=== PATIENT | female | born 1945 | race Caucasian/White ===

== ENCOUNTER 2018-05-08 00:25 | Outpatient (CLI) | payer MEDICARE, OTHER, SELFPAY ==
--- NOTE | 2018-05-08 11:55 | DI.MAMMO_ITS ---
SYMPTOM/DIAGNOSIS: SCREENING, Z12.39 MAMMOGRAMS: Mammograms were interpreted according to the usual protocol including computer analysis with CAD system, tomosynthesis and C view imaging. Comparison is made with exams dated [id number] from [facility]. The breasts are composed of heterogeneously dense fibroglandular tissue, breast density, Category C. No suspicious masses or suspicious microcalcifications are seen. IMPRESSION: Category 1, negative mammogram. Yearly screening mammography is recommended. [facility] ASSESSMENT OF FINDINGS: Negative. Category 1. Patient will receive a letter notifying them of these results. Bi-RADS category C. The breasts are heterogeneously dense, which may obscure small masses.
== END 2018-05-08 00:45 ==
PROVIDERS: PCP Nurse Practitioner; Visit Provider Nurse Practitioner
DX: Z12.31 Encounter for screening mammogram for malignant neoplasm of breast (principal)
CPT/HCPCS: 77063; 77067

== ENCOUNTER 2018-08-13 13:34 | Outpatient (CLI) | payer MEDICARE, SELFPAY ==
[2018-08-13 14:25] LABS: Abs Immature Grans 0.04 k/cumm (0.0-0.09); HCT 40.5 % (36.0-46.0); HGB 13.7 g/dL (12.0-15.5); Mean Corp. HGB Concentration 33.8 g/dL (32.0-36.0); Mean Corpuscular Volume 88.8 fL (80-95); Mean Platelet Volume 9.8 fL (8.0-11.0); Platelet Count 139 x1000/uL (130-400); RBC 4.56 m/cumm (4.00-5.20); RBC Distribution Width 13.3 % (11.7-14.6); White Blood Cell Count 18.07 k/cumm (4.4-10.8)
[2018-08-13 15:05] LABS: Absolute Lymphocyte Count 13.55 k/cumm (1.2-3.4); Absolute Neutrophil Count 3.61 k/cumm (1.2-6.7); Atypical Lymphocytes % 3
[2018-08-13 15:06] LABS: Absolute Eosinophil Count 0.18 k/cumm (0.0-0.7); Absolute Monocyte Count 0.72 k/cumm (0.11-0.7); Diff Comment Manual Differential; RBC Morphology Normal
== END 2018-08-13 13:54 ==
PROVIDERS: PCP Nurse Practitioner; Visit Provider Nurse Practitioner
DX: C91.10 Chronic lymphocytic leukemia of B-cell type not having achieved remission (principal)
CPT/HCPCS: 36415; 85025

== ENCOUNTER 2018-11-14 15:25 | Emergency (ER) | payer MEDICARE, OTHER, SELFPAY ==
[2018-11-14 15:27] VITALS: BP 103/47; PULSE 66; RESP 20; TEMP 36.4; O2SAT 97
[2018-11-14] MEDS: Acetaminophen 500 MG TAB 1000 MG PO (15:35)
--- NOTE | 2018-11-14 15:36 | DI.RAD_ITS ---
SYMPTOMS/DIAGNOSIS: PAIN S/P FALL LEFT CLAVICLE: There is a comminuted fracture of the distal clavicle with only slight displacement of fragments. AC joint appears intact. There is no glenohumeral joint dislocation. There are underlying degenerative changes. IMPRESSION: Distal clavicle fracture. LEFT SHOULDER: There is a comminuted fracture of the distal clavicle. There is mild spurring at the AC joint. There are mild degenerative changes of the glenohumeral joint and at the greater tuberosity. No humeral or glenoid fracture is seen. The visualized portions of the left ribs appear intact. IMPRESSION: Comminuted distal clavicle fracture.
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
[2018-11-14 16:22] VITALS: BP 117/57; PULSE 69; RESP 16; O2SAT 96
--- NOTE | 2018-11-14 16:28 | DI.VRAD_ITS ---
EXAM: XR Left Shoulder EXAM DATE/TIME: 11/14/2018 3:37 PM CLINICAL HISTORY: 73 years old, female; Other: Pain, S/P fall TECHNIQUE: Imaging protocol: XR Left shoulder. Views: 2 or more views. COMPARISON: No relevant prior studies available. FINDINGS: Bones/joints: Acute comminuted fracture of the distal clavicular shaft. No displacement. No extension to the articular surface. Soft tissues: Normal. IMPRESSION: Acute comminuted fracture of the distal clavicular shaft. No displacement. Dictated and Authenticated by: Kirstin Caicedo MD. Ordering:DEBORAH Lizama MD
--- NOTE | 2018-11-14 16:28 | DI.VRAD_ITS ---
EXAM: XR Left Clavicle, Complete EXAM DATE/TIME: 11/14/2018 4:06 PM CLINICAL HISTORY: 73 years old, female; Other: Pain S/P fall TECHNIQUE: Imaging protocol: XR Left clavicle complete. Any number of views. COMPARISON: No relevant prior studies available. FINDINGS: Bones/joints: Acute comminuted fracture of the distal clavicular shaft. No displacement. Soft tissues: Normal. IMPRESSION: Acute comminuted fracture of the distal clavicular shaft. No displacement. Dictated and Authenticated by: Kirstin Caicedo MD. Ordering:DEBORAH Lizama MD
== END 2018-11-14 16:36 | disposition home or self-care (01) ==
PROVIDERS: Emergency Provider Emergency Medicine; PCP Nurse Practitioner
DX: S42.032A Displaced fracture of lateral end of left clavicle, initial encounter for closed fracture (principal); V18.0XXA Pedal cycle driver injured in noncollision transport accident in nontraffic accident, initial encounter; Y93.55 Activity, bike riding; I10 Essential (primary) hypertension
CPT/HCPCS: 23500; 73000; 73030; L3650

== ENCOUNTER 2018-11-22 11:08 | Outpatient (CLI) | payer MEDICARE, OTHER, SELFPAY ==
--- NOTE | 2018-11-22 10:46 | DI.RAD_ITS ---
SYMPTOM/DIAGNOSIS: CLAVICLE FX LEFT CLAVICLE: Two views. Comparison 11/14/18 There has been no change in alignment of the comminuted fracture involving the distal left clavicle. The bones are osteopenic. The soft tissues are unremarkable.
== END 2018-11-22 11:28 ==
PROVIDERS: PCP Nurse Practitioner; Referring Provider Nurse Practitioner; Visit Provider Orthopaedic Surgery
DX: S42.035A Nondisplaced fracture of lateral end of left clavicle, initial encounter for closed fracture (principal); V18.0XXA Pedal cycle driver injured in noncollision transport accident in nontraffic accident, initial encounter; Y93.55 Activity, bike riding; I10 Essential (primary) hypertension
CPT/HCPCS: 99203; 99214; 73000; A4565

== ENCOUNTER 2018-12-26 10:27 | Outpatient (CLI) | payer MEDICARE, OTHER, SELFPAY ==
--- NOTE | 2018-12-26 09:25 | DI.RAD_ITS ---
EXAM: XR CLAVICLE LT INDICATION: F/U FRACTURE. COMPARISON: XR CLAVICLE LT from 11/22/2018 TECHNIQUE: 2D digital imaging was performed. FINDINGS: When compared with the previous previous examination of 11/22/2018, there has been no interval change in the alignment of the clavicular fracture. Early healing is identified at the fracture site.
== END 2018-12-26 10:47 ==
PROVIDERS: PCP Nurse Practitioner; Referring Provider Nurse Practitioner; Visit Provider Orthopaedic Surgery
DX: S42.035A Nondisplaced fracture of lateral end of left clavicle, initial encounter for closed fracture (principal); X58.XXXA Exposure to other specified factors, initial encounter; I10 Essential (primary) hypertension
CPT/HCPCS: 99213; 73000

== ENCOUNTER 2019-01-23 10:24 | Outpatient (CLI) | payer MEDICARE, OTHER, SELFPAY ==
--- NOTE | 2019-01-23 09:45 | DI.RAD_ITS ---
EXAM: XR CLAVICLE LT LIMITED 1V INDICATION: f/u. COMPARISON: XR CLAVICLE LT from 12/26/2018 TECHNIQUE: 2D digital imaging was performed. FINDINGS: An AP projection reveals no change in the apposition or alignment of the clavicular fracture fragment s. Callus formation is identified and there is nothing to suggest that healing is not progressing sat isfactorily at the present time.
== END 2019-01-23 10:44 ==
PROVIDERS: PCP Nurse Practitioner; Visit Provider Orthopaedic Surgery
DX: S42.035D Nondisplaced fracture of lateral end of left clavicle, subsequent encounter for fracture with routine healing (principal)
CPT/HCPCS: 99213; 73000

== ENCOUNTER 2019-02-11 11:36 | Outpatient (CLI) | payer MEDICARE, OTHER, SELFPAY ==
[2019-02-11 12:42] LABS: Abs Immature Grans 0.05 k/cumm (0.0-0.09); HCT 39.8 % (36.0-46.0); HGB 13.3 g/dL (12.0-15.5); Mean Corp. HGB Concentration 33.4 g/dL (32.0-36.0); Mean Corpuscular Hemoglobin 29.2 pg (27.0-33.0); Mean Corpuscular Volume 87.3 fL (80-95); Mean Platelet Volume 9.2 fL (8.0-11.0); Platelet Count 156 x1000/uL (130-400); RBC 4.56 m/cumm (4.00-5.20); RBC Distribution Width 13.1 % (11.7-14.6); White Blood Cell Count 20.46 k/cumm (4.4-10.8)
[2019-02-11 13:18] LABS: Absolute Lymphocyte Count 14.32 k/cumm (1.2-3.4); Absolute Monocyte Count 1.64 k/cumm (0.11-0.7); Atypical Lymphocytes % 6; Diff Comment Manual Differential; RBC Morphology Normal
[2019-02-11 13:34] LABS: ALT 29 U/L (14-59); AST 17 U/L (15-37); Albumin 4.3 g/dL (3.4-5.0); Alkaline Phosphatase 71 U/L (46-116); Anion Gap 8.9 mmol/L (3-11); BUN 19 mg/dL (7-18); Bilirubin, Total 0.5 mg/dL (0.2-1.0); CO2 29.1 mmol/L (21.0-32.0); Chloride 104 mmol/L (98-107); Glucose 104 mg/dL (70-100); LDH 193 U/L (81-234); Potassium 4.2 mmol/L (3.5-5.1); Sodium 142 mmol/L (136-145); Total Protein 6.5 g/dL (6.4-8.2)
== END 2019-02-11 11:56 ==
PROVIDERS: PCP Nurse Practitioner; Visit Provider Internal Medicine Hematology
DX: C91.10 Chronic lymphocytic leukemia of B-cell type not having achieved remission (principal)
CPT/HCPCS: 36415; 80053; 83615; 85025

== ENCOUNTER 2019-08-14 02:57 | Outpatient (CLI) | payer MEDICARE, OTHER, SELFPAY ==
[2019-08-14 11:53] LABS: Abs Immature Grans 0.03 k/cumm (0.0-0.09); HCT 41.5 % (36.0-46.0); HGB 13.7 g/dL (12.0-15.5); Mean Corpuscular Hemoglobin 28.9 pg (27.0-33.0); Mean Corpuscular Volume 87.6 fL (80-95); Mean Platelet Volume 9.4 fL (8.0-11.0); Platelet Count 166 x1000/uL (130-400); RBC 4.74 m/cumm (4.00-5.20); RBC Distribution Width 13.4 % (11.7-14.6); White Blood Cell Count 21.69 k/cumm (4.4-10.8)
[2019-08-14 12:04] LABS: ALT 30 U/L (14-59); AST 18 U/L (15-37); Albumin 4.3 g/dL (3.4-5.0); Alkaline Phosphatase 67 U/L (46-116); Anion Gap 6.7 mmol/L (3-11); BUN 19 mg/dL (7-18); Bilirubin, Total 0.5 mg/dL (0.2-1.0); CO2 31.3 mmol/L (21.0-32.0); CREATININE 0.94 mg/dL (0.55-1.02); Calcium 9.5 mg/dL (8.5-10.1); Chloride 102 mmol/L (98-107); Estimated GFR 58.21 (mL/min/1.73m2); Glucose 113 mg/dL (74-106); LDH 203 U/L (81-234); Sodium 140 mmol/L (136-145); Total Protein 6.7 g/dL (6.4-8.2)
[2019-08-14 12:11] LABS: Absolute Eosinophil Count 0.65 k/cumm (0.0-0.7); Absolute Lymphocyte Count 16.05 k/cumm (1.2-3.4); Absolute Monocyte Count 1.52 k/cumm (0.11-0.7); Absolute Neutrophil Count 3.47 k/cumm (1.2-6.7)
[2019-08-14 12:12] LABS: Diff Comment Manual Differential; RBC Morphology Normal
== END 2019-08-14 03:17 ==
PROVIDERS: PCP Nurse Practitioner; Visit Provider Internal Medicine Hematology
DX: C91.10 Chronic lymphocytic leukemia of B-cell type not having achieved remission (principal)
CPT/HCPCS: 36415; 80053; 83615; 85025

== ENCOUNTER 2020-02-14 01:12 | Outpatient (CLI) | payer MEDICARE, OTHER, SELFPAY ==
[2020-02-14 16:07] LABS: Abs Immature Grans 0.06 10^3/uL (0.0-0.06); HCT 40.1 % (36.0-46.0); HGB 13.4 g/dL (11.2-15.7); MCH 29.2 pg (27.0-33.0); MCHC 33.4 % (32.0-36.0); MCV 87.4 fL (80-95); MPV 9.3 fL (8.0-11.0); Nucleated RBC 0 %; Platelet Count 144 10^3/uL (130-400); RBC 4.59 10^6/uL (3.93-5.22); RDW 13.1 % (11.7-14.6); RDW-SD 41.9 fL; WBC 19.47 10^3/uL (4.4-10.8)
[2020-02-14 16:41] LABS: Absolute Lymphocyte Count 13.04 10^3/uL (1.2-3.4); Absolute Monocyte Count 0.19 10^3/uL (0.1-0.8); Absolute Neutrophil Count 6.04 10^3/uL (1.2-6.7); Diff Comment Manual Differential; RBC Morphology Normal
[2020-02-14 16:42] LABS: Absolute Eosinophil Count 0.19 10^3/uL (0.0-0.7)
[2020-02-14 17:32] LABS: ALT 24 U/L (14-59); AST 16 U/L (15-37); Albumin 4.4 g/dL (3.4-5.0); Alkaline Phosphatase 65 U/L (46-116); Anion Gap 7.4 mmol/L (3-11); BUN 23 mg/dL (7-18); Bilirubin, Total 0.5 mg/dL (0.2-1.0); CO2 32.6 mmol/L (21.0-32.0); Calcium 9.5 mg/dL (8.5-10.1); Chloride 101 mmol/L (98-107); Glucose 128 mg/dL (74-106); LDH 205 U/L (81-234); Potassium 3.9 mmol/L (3.5-5.1); Sodium 141 mmol/L (136-145); Total Protein 6.7 g/dL (6.4-8.2)
== END 2020-02-14 01:32 ==
PROVIDERS: PCP Nurse Practitioner; Visit Provider Internal Medicine Hematology
DX: C91.10 Chronic lymphocytic leukemia of B-cell type not having achieved remission (principal)
CPT/HCPCS: 36415; 80053; 83615; 85025

== ENCOUNTER 2020-03-09 18:41 | Outpatient (REF) | payer MEDICARE, OTHER, SELFPAY ==
[2020-03-13 10:09] LABS: COVID-19 RT-PCR Result NEGATIVE (Negative)
== END 2020-03-09 19:01 ==
LOC: NCHCN 18:41
PROVIDERS: PCP Nurse Practitioner; Visit Provider Nurse Practitioner Family
DX: Z11.59 Encounter for screening for other viral diseases (principal)
CPT/HCPCS: U0003

== ENCOUNTER 2020-07-27 07:36 | Day surgery (SDC) | payer MEDICARE, SELFPAY ==
--- NOTE | 2020-07-27 07:28 | W.ANESPRE ---
Anesthesia Assessment and Plan Anesthesia History Personal History: Other (Malignant Hypertension) Family History: No Family History of Anesthesia Complications Exercise Tolerance Exercise Tolerance: Metabolic Equivalents>4 Pertinent Negatives Pertinent Negatives: No Symptoms of GERD Cardiac & Pulmonary Exam Cardiac Exam: Normal S1/S2 Heart Sounds Pulmonary Exam: Clear Bilateral Breath Sounds Airway Exam Known Difficult Airway: No Mallampati Class: 2 Mouth Opening: Normal (> 3cm) Thyromental Distance: Less than 3 cm Neck Range of Motion: Limited ROM Neck Circumference: Thick Teeth Condition: Normal Dentition ASA Classification ASA Score: ASA 3 NPO Status NPO Status: NPO Clears >2 hours, Solids >8 hours General Info Date of Service This is a Shared Provider Document. All providers who document on this will be required to sign document once completed. Please Communicate with Team Date Performed: 07/27/20 Height: 5 ft 4 in Weight: 63.503 kg Body Mass Index (BMI): 24.0 Surgical Procedure: Operation Date: 07/27/20 09:40 Proposed Procedures Side Surgeon p Cataract Extraction with IOL Implant Left Corey Andrade MD Vital Signs and Lab Results Point of Care Results Nursing Point of Care Results: No Data to Display Lab Results Blood Type / Crossmatch: No Data to Display Complete Blood Count: White Blood Count 19.47 10^3/uL (4.4-10.8) H 02/14/20 15:38 02/14/20 Red Blood Count 4.59 10^6/uL (3.93-5.22) 02/14/20 15:38 02/14/20 Hemoglobin 13.4 g/dL (11.2-15.7) 02/14/20 15:38 02/14/20 Hematocrit 40.1 % (36.0-46.0) 02/14/20 15:38 02/14/20 Platelet Count 144 10^3/uL (130-400) 02/14/20 15:38 02/14/20 Complete Metabolic Panel: Sodium Level 141 mmol/L (136-145) 02/14/20 15:38 02/14/20 Potassium Level 3.9 mmol/L (3.5-5.1) 02/14/20 15:38 02/14/20 Chloride Level 101 mmol/L (98-107) 02/14/20 15:38 02/14/20 Carbon Dioxide Level 32.6 mmol/L (21.0-32.0) H 02/14/20 15:38 02/14/20 Blood Urea Nitrogen 23 mg/dL (7-18) H 02/14/20 15:38 02/14/20 Creatinine 0.80 mg/dL (0.55-1.02) 02/14/20 15:38 02/14/20 Calcium Level 9.5 mg/dL (8.5-10.1) 02/14/20 15:38 02/14/20 Albumin 4.4 g/dL (3.4-5.0) 02/14/20 15:38 02/14/20 Glucose Level 128 mg/dL (74-106) H 02/14/20 15:38 02/14/20 Liver Function Panel: Alanine Aminotransferase (ALT/SGPT) 24 U/L (14-59) 02/14/20 15:38 02/14/20 Aspartate Amino Transf (AST/SGOT) 16 U/L (15-37) 02/14/20 15:38 02/14/20 Coagulation Panel: No Data to Display Cardiac Panel: No Data to Display Arterial Blood Gas: No Data to Display Venous Blood Gas: No Data to Display Pancreas Panel: No Data to Display Thyroid Panel: No Data to Display Infectious Disease: Coronavirus (COVID-19)(PCR) Not Applicable 03/09/20 13:30 03/09/20 Blood Cultures: Blood Culture Toxicology Panel: No Data to Display Panel: No Data to Display [facility] Medical History (Updated 07/23/20 @ 20:41 by Corey Andrade MD) Acoustic neuroma CLL (chronic lymphocytic leukemia) Depression Hypertension Social History Smoking/Tobacco Use Status: Former Tobacco Use Quit Date: 04/03/95 Smoking risk assessment performed?: Yes Alcohol Intake: current Alcohol Intake frequency: 0-2 drinks per day Alcohol type: wine Substance use type: does not use Current gender identity: female Do you feel safe at home: Yes Do you feel safe in your relationship?: Yes Meds Allergies and Home Medications Allergies Allergy/AdvReac Type Severity Reaction Status Date / Time Sulfa (Sulfonamide Allergy high fever Verified 07/27/20 07:58 Antibiotics) and a rash Current Visit Medication Generic Name Dose Route Start Last Admin Trade Name Freq PRN Reason Stop Dose Admin Acetaminophen 1,000 mg 07/27/20 06:00 Acetaminophen 500 Mg Tab PO Q4H PRN PRN Miscellaneous Medication 0 ml 07/27/20 06:00 Prednisolone 1%, Moxifloxacin 0.5%, Nepafenac 0.1% 5ml Btl OS DIRECTED [facility] Miscellaneous Medication 0 ml 07/27/20 06:00 07/27/20 08:07 Tropicam./Phenyleph. (1/2.5%) 5 Ml Btl OS 1 drp DIRECTED [facility] Administration Tetracaine HCl 0 ml 07/27/20 06:00 Tetracaine 0.5% 4 Ml Btl OS DIRECTED [facility] Home Medication Medication Instructions Recorded fluoxetine [Prozac] 20 mg PO DAILY 11/14/18 calcium carbonate 500 mg calcium 500 mg PO DAILY 11/22/18 (1,250 mg) tablet losartan 100 1 tab PO DAILY 11/22/18 mg-hydrochlorothiazide 12.5 mg tablet [id number]-minerals 1 tab PO DAILY tab 11/22/18 potassium gluconate 90 mg PO DAILY 07/23/20 omega-3 fatty acids [Fish Oil] 500 mg PO DAILY 07/27/20
[2020-07-27] MEDS: Tropicam./Phenyleph. (1/2.5%) 5 ML BTL OS ×3 (07:56→08:07)
[2020-07-27 08:01] VITALS: BP 135/79; PULSE 61; RESP 18; TEMP 36.3; O2SAT 96
--- NOTE | 2020-07-27 08:20 | W.ANESPRE ---
Anesthesia Assessment and Plan Anesthesia History Personal History: No History of Anesthesia Complications Family History: No Family History of Anesthesia Complications Exercise Tolerance Exercise Tolerance: Metabolic Equivalents>4 Pertinent Negatives Pertinent Negatives: No Symptoms of GERD Cardiac & Pulmonary Exam Cardiac Exam: Normal S1/S2 Heart Sounds Pulmonary Exam: Clear Bilateral Breath Sounds Airway Exam Known Difficult Airway: No Mallampati Class: 1 Mouth Opening: Normal (> 3cm) Thyromental Distance: Less than 3 cm Neck Range of Motion: Full ROM Neck Circumference: Normal Teeth Condition: Normal Dentition ASA Classification ASA Score: ASA 2 ASA Emergency: No NPO Status NPO Status: NPO Clears >2 hours, Solids >8 hours Status Status: Not Per Patient Anesthesia Plan Anesthesia Technique: MAC Anesthesia Airway Planned: Natural Airway Monitors Used: Standard Monitors General Info Date of Service This is a Shared Provider Document. All providers who document on this will be required to sign document once completed. Please Communicate with Team Date Performed: 07/27/20 Height: 5 ft 4 in Weight: 64.4 kg Body Mass Index (BMI): 24.3 Surgical Procedure: Operation Date: 07/27/20 09:40 Proposed Procedures Side Surgeon p Cataract Extraction with IOL Implant Left Corey Andrade MD Vital Signs and Lab Results Vital Signs Most Recent Vital Signs in EMR: Most Recent Vital Signs Temp Pulse Resp BP Pulse Ox 36.3 C L 61 18 135/79 96 07/27/20 08:01 07/27/20 08:01 07/27/20 08:01 07/27/20 08:01 07/27/20 08:01 Point of Care Results Nursing Point of Care Results: No Data to Display Lab Results Blood Type / Crossmatch: No Data to Display Complete Blood Count: White Blood Count 19.47 10^3/uL (4.4-10.8) H 02/14/20 15:38 02/14/20 Red Blood Count 4.59 10^6/uL (3.93-5.22) 02/14/20 15:38 02/14/20 Hemoglobin 13.4 g/dL (11.2-15.7) 02/14/20 15:38 02/14/20 Hematocrit 40.1 % (36.0-46.0) 02/14/20 15:38 02/14/20 Platelet Count 144 10^3/uL (130-400) 02/14/20 15:38 02/14/20 Complete Metabolic Panel: Sodium Level 141 mmol/L (136-145) 02/14/20 15:38 02/14/20 Potassium Level 3.9 mmol/L (3.5-5.1) 02/14/20 15:38 02/14/20 Chloride Level 101 mmol/L (98-107) 02/14/20 15:38 02/14/20 Carbon Dioxide Level 32.6 mmol/L (21.0-32.0) H 02/14/20 15:38 02/14/20 Blood Urea Nitrogen 23 mg/dL (7-18) H 02/14/20 15:38 02/14/20 Creatinine 0.80 mg/dL (0.55-1.02) 02/14/20 15:38 02/14/20 Calcium Level 9.5 mg/dL (8.5-10.1) 02/14/20 15:38 02/14/20 Albumin 4.4 g/dL (3.4-5.0) 02/14/20 15:38 02/14/20 Glucose Level 128 mg/dL (74-106) H 02/14/20 15:38 02/14/20 Liver Function Panel: Alanine Aminotransferase (ALT/SGPT) 24 U/L (14-59) 02/14/20 15:38 02/14/20 Aspartate Amino Transf (AST/SGOT) 16 U/L (15-37) 02/14/20 15:38 02/14/20 Coagulation Panel: No Data to Display Cardiac Panel: No Data to Display Arterial Blood Gas: No Data to Display Venous Blood Gas: No Data to Display Pancreas Panel: No Data to Display Thyroid Panel: No Data to Display Infectious Disease: Coronavirus (COVID-19)(PCR) Not Applicable 03/09/20 13:30 03/09/20 Blood Cultures: Blood Culture Toxicology Panel: No Data to Display Panel: No Data to Display [facility] Medical History (Updated 07/23/20 @ 20:41 by Corey Andrade MD) Acoustic neuroma CLL (chronic lymphocytic leukemia) Depression Hypertension Social History Smoking/Tobacco Use Status: Former Tobacco Use Quit Date: 04/03/95 Smoking risk assessment performed?: Yes Alcohol Intake: current Alcohol Intake frequency: 0-2 drinks per day Alcohol type: wine Substance use type: does not use Current gender identity: female Do you feel safe at home: Yes Do you feel safe in your relationship?: Yes Meds Allergies and Home Medications Allergies Allergy/AdvReac Type Severity Reaction Status Date / Time Sulfa (Sulfonamide Allergy high fever Verified 07/27/20 07:58 Antibiotics) and a rash Current Visit Medication Generic Name Dose Route Start Last Admin Trade Name Freq PRN Reason Stop Dose Admin Acetaminophen 1,000 mg 07/27/20 06:00 Acetaminophen 500 Mg Tab PO Q4H PRN PRN Miscellaneous Medication 0 ml 07/27/20 06:00 Prednisolone 1%, Moxifloxacin 0.5%, Nepafenac 0.1% 5ml Btl OS DIRECTED [facility] Miscellaneous Medication 0 ml 07/27/20 06:00 07/27/20 08:07 Tropicam./Phenyleph. (1/2.5%) 5 Ml Btl OS 1 drp DIRECTED [facility] Administration Tetracaine HCl 0 ml 07/27/20 06:00 Tetracaine 0.5% 4 Ml Btl OS DIRECTED [facility] Home Medication Medication Instructions Recorded fluoxetine [Prozac] 20 mg PO DAILY 11/14/18 calcium carbonate 500 mg calcium 500 mg PO DAILY 11/22/18 (1,250 mg) tablet losartan 100 1 tab PO DAILY 11/22/18 mg-hydrochlorothiazide 12.5 mg tablet [id number]-Dz-reeu-minerals 1 tab PO DAILY tab 11/22/18 potassium gluconate 90 mg PO DAILY 07/23/20 omega-3 fatty acids [Fish Oil] 500 mg PO DAILY 07/27/20
[2020-07-27 08:38] VITALS: BMI 24.3
[2020-07-27] MEDS: Tetracaine 0.5% 4 ML BTL OS (08:54)
[2020-07-27] MEDS: Duovisc Viscoelastic System EACH 1 EACH (08:55)
[2020-07-27] MEDS: Balanced Salt Soln.-PLUS 500 ML BAG (08:55)
[2020-07-27] MEDS: Lidocaine 1% Pres-Free 5 ML VIAL (08:56)
[2020-07-27] MEDS: Lidocaine 2% Jelly 6 ML SYR (08:57)
[2020-07-27] MEDS: Povidone-Iodine Ophth 30 ML BTL (08:58)
--- NOTE | 2020-07-27 09:14 | W.PM.DSUDISC ---
Discharge Plan Disposition Patient Disposition: HOME Condition: Good Discharge Details Attending Provider: Corey Andrade Primary Care Provider: Keena Baca Home Meds and New Rx's Prescriptions: No Action losartan-hydrochlorothiazide 100-12.5 mg tablet 1 tab PO DAILY RF: 0 Multiple Vitamin, Womens Tablet 1 tab PO DAILY RF: 0 calcium carbonate [Calcium 500] 500 mg calcium (1,250 mg) tablet 500 mg PO DAILY RF: 0 fluoxetine [Prozac] 20 mg Capsule 20 mg PO DAILY RF: 0 potassium gluconate 550 mg (90 mg) Tablet 90 mg PO DAILY RF: 0 Fish Oil Capsule 500 mg PO DAILY RF: 0 Discharge Instructions Stand Alone Forms: Post-op Topical Cataract, Kari Fung ([facility]) Discharge Orders Discharge Orders: Discharge Order (Routine); Ordered 07/27/20 Ordered By: Corey Andrade DS: Diagnosis Discharge Diagnosis (1) Nuclear sclerotic cataract of left eye: Status: Resolved (2) Cortical cataract of left eye: Status: Resolved
[2020-07-27 09:15] VITALS: BP 117/70; PULSE 63; RESP 18; TEMP 35.9; O2SAT 96
--- NOTE | 2020-07-27 09:15 | ROE_ITS ---
Date of service: 07/27/20 Time of Service: 09:15 Operative Note Operative Note DATE OF PROCEDURE: 07/27/20 PRE-OP DIAGNOSIS: Nuclear/cortical cataract, left eye POST-OP DIAGNOSIS: same PROCEDURE: Cataract extraction using phacoemulsification with intraocular lens implant, left eye SURGEON: Corey Andrade ANESTHESIA TYPE: Local By Surgeon and MAC Refer to Anesthesia Record PATHOLOGY: none sent COMPLICATIONS: None Patient was transported to: same day Patient's condition: stable Implants: [employer] / [employer] Tecnis [id number] Indications: Progressive decreased vision due to cataract, left eye Procedure Description: CATARACT SURGERY OPERATIVE REPORT PREOPERATIVE DIAGNOSIS: Nuclear/cortical cataract, left eye POSTOPERATIVE DIAGNOSIS: Same OPERATION: Cataract extraction using phacoemulsification with posterior chamber intraocular lens implant, left eye. IOL: IOL Facility Supervisor/Model: [employer] / WERNER Tecnis [id number] IOL Power: + 21.0 diopters IOL Serial Number: [id number] Optic Diameter: 6.0mm Haptic/Overall Diameter: 13.0mm PHACO INFO: Shivam [employer] Vision System with OZil and Active [employer]uidics Cumulative Dispersed Energy (CDE): 6.02 seconds SURGEON: Corey Andrade MD, FENG ANESTHESIA: Monitored Anesthesia Care (MAC), with local sub-tenon's anesthetic infiltration COMPLICATIONS: None SPECIMENS: None INDICATIONS FOR PROCEDURE: The patient is a 74-year-old lady who has previously undergone cataract surgery in her right eye in [place]. She has now developed a symptomatic nuclear and cortical cataract of the left eye and desires cataract surgery there and attempt to improve and maximize her vision. PROCEDURE: The correct surgical eye was identified and marked as the left eye and the pupil was dilated in the preoperative area using mydriatics and cycloplegics. The dilated pupil size was 6.5 mm. Oral sedation was administered in the form of an Imprimis MKO Melt (midazolam 3mg/ketamine 25mg/ondansetron 2mg). The patient was brought to the operating room where cardiopulmonary monitoring was instituted and surgical time-out was performed, confirming the correct operative eye and IOL power. Topical anesthesia was administered and ophthalmic povidone-iodine 5% was instilled into the conjunctival fornices. Lidocaine gel was applied to the cornea and the lynda-ocular area was prepped with Betadine 10% solution and draped in the usual sterile fashion for intraocular surgery, including an aperture drape. A Tegaderm transparent film dressing was cut in half and used to cover the lashes and lid margins. Care was taken to sequester the lashes and lid margins under the Tegaderm dressing. A lid speculum was placed between the lids of the operative eye and the Nazario-Venkat operating microscope was maneuvered into position. Nicole scissors were then used to make a conjunctival buttonhole approximately 6mm posterior to the limbus in the inferonasal quadrant. Blunt dissection was carried out to expose bare sclera, and a blunt-tipped sub-tenon?s anesthesia cannula was introduced and passed posteriorly along the globe where non- preserved plain lidocaine was injected into posterior sub-Tenon?s space. A sideport knife was used to make a paracentesis port superior/superiortemporally. Intraocular phenylephrine/lidocaine was injected into the anterior chamber. The anterior chamber was then filled with viscoelastic. A 2.4mm keratome knife was used to create a half-thickness groove at the limbus and then to construct a three-plane near-clear corneal tunnel extending 2.0mm into clear cornea in the temporal position. . A flap was raised on the anterior capsule and capsulorhexis forceps were used to complete a continuous curvilinear capsulorhexis of 5.0 mm. Balanced salt solution was then used to perform cortical cleaving hydrodissection and nuclear hydrodelineation until the lens could be freely rotated within the capsular bag. The lens nucleus was then disassembled and removed within the capsular bag and iris plane using phacoemulsification. Residual cortical material was removed using the 45-degree angled silicone I/A tip with 0.3mm port. The posterior capsule was carefully polished to remove as much residual lens epithelial cells as safely possible. The capsular bag was then inflated and the anterior chamber deepened with viscoelastic. The lens implant described above was inserted into the capsular bag using the WERNER Pl atinum Injector. A Kuglen hook was used to dial the IOL into position. Residual viscoelastic was then removed first from posterior to the IOL, then from the anterior chamber using the I/A handpiece. The lens implant was noted to center nicely within the capsular bag. The incisions were stromally hydrated, and the anterior chamber was reformed using BSS. Then 0.5cc of moxifloxacin 1.0mg/ml were injected into the capsular bag and anterior chamber. The incisions were checked with a Weck spear and found to be secure. Several drops of ophthalmic povidone-iodine 5% were then applied to the eye followed by two drops of Imprimis combination prednisolone/moxifloxacin/nepafenac solution. The drapes were removed and a clear plastic protective eye shield was placed over the eye. The patient was then returned to Same Day Surgery in stable condition.
--- NOTE | 2020-07-27 09:18 | W.ANESPOSTOP ---
Postoperative Evaluation Date, Time and Location Date Performed: 07/27/20 Time Performed: 09:18 Patient Location: Day Surgery Unit Vital Signs Most Recent Imported Vital Signs: Most Recent Vital Signs Temp Pulse Resp BP Pulse Ox 36.3 C L 61 18 135/79 96 07/27/20 08:01 07/27/20 08:01 07/27/20 08:01 07/27/20 08:01 07/27/20 08:01 Assessment Mental Status: Awake (Alert & Oriented to Patient Baseline) Airway and Respiratory Function: Patent airway with normal (patient baseline) respiratory exam Cardiovascular Function: Hemodynamically Stable Hydration Status: Adequately Hydrated Nausea & Vomiting: No Nausea or Vomiting Pain: Pt. Denies Any Pain Peripheral Nerve Block: Patient did not receive a nerve block Teaching Patient Teaching: Discussed Safe Use of Pain Medication Given Recent Anesthesia
[2020-07-27 09:47] VITALS: BP 118/70; PULSE 66; RESP 16; TEMP 36.4; O2SAT 96
== END 2020-07-27 09:55 | disposition home or self-care (01) ==
PROVIDERS: PCP Nurse Practitioner; Visit Provider Ophthalmology
PROC: (CPT 66984; principal; 2020-07-27 09:30)
DX: H25.12 Age-related nuclear cataract, left eye (principal); H25.012 Cortical age-related cataract, left eye; Z98.42 Cataract extraction status, left eye; Z96.1 Presence of intraocular lens
CPT/HCPCS: 66984; V2632

== ENCOUNTER 2020-10-28 13:57 | Outpatient (REF) | payer MEDICARE, SELFPAY ==
[2020-10-28 20:50] LABS: Abs Immature Grans 0.08 10^3/uL (0.0-0.06); HCT 39.6 % (36.0-46.0); HGB 13.3 g/dL (11.2-15.7); MCH 28.8 pg (27.0-33.0); MCHC 33.6 % (32.0-36.0); MCV 85.7 fL (80-95); MPV 9.7 fL (8.0-11.0); Nucleated RBC 0 %; Platelet Count 140 10^3/uL (130-400); RBC 4.62 10^6/uL (3.93-5.22); RDW 12.8 % (11.7-14.6); RDW-SD 39.6 fL; WBC 19.99 10^3/uL (4.4-10.8)
[2020-10-28 21:17] LABS: ALT 26 U/L (14-59); AST 21 U/L (15-37); Albumin 4.5 g/dL (3.4-5.0); Alkaline Phosphatase 74 U/L (46-116); Anion Gap 10.5 mmol/L (3-11); BUN 16 mg/dL (7-18); Bilirubin, Total 0.5 mg/dL (0.2-1.0); CO2 28.5 mmol/L (21.0-32.0); CREATININE 0.8 mg/dL (0.55-1.02); Calcium 9.6 mg/dL (8.5-10.1); Calculated LDL 134 mg/dL (<100); Chloride 103 mmol/L (98-107); Cholesterol 222 mg/dL (<200); Glucose 123 mg/dL (74-106); HDL Cholesterol 48 mg/dL (40-60); Potassium 3.5 mmol/L (3.5-5.1); Sodium 142 mmol/L (136-145); TSH (W/Ref FT4) 2.66 uIU/mL (0.36-3.74); Total Protein 6.7 g/dL (6.4-8.2); Triglyceride 202 mg/dL (<150)
[2020-10-28 21:26] LABS: Hemoglobin A1C 6.1 % (<5.7)
[2020-10-28 22:32] LABS: Absolute Lymphocyte Count 14.19 10^3/uL (1.2-3.4); Atypical Lymphocytes % 8; Diff Comment Manual Differential; RBC Morphology Normal
== END 2020-10-28 13:58 | disposition home or self-care (01) ==
LOC: NCHCN 13:57
PROVIDERS: PCP Nurse Practitioner; Visit Provider Nurse Practitioner
DX: C91.10 Chronic lymphocytic leukemia of B-cell type not having achieved remission (principal); I10 Essential (primary) hypertension; R73.9 Hyperglycemia, unspecified; F41.9 Anxiety disorder, unspecified
CPT/HCPCS: 80053; 80061; 83036; 84443; 85025

== ENCOUNTER → 2020-11-10 10:20 | Outpatient (BNVA) | payer MEDICARE, SELFPAY | PROVIDERS: PCP Nurse Practitioner; Referring Provider Nurse Practitioner Family; Visit Provider Surgery | DX: L98.8 Other specified disorders of the skin and subcutaneous tissue (principal) | CPT/HCPCS: 99203; 99214 ==

== ENCOUNTER 2020-11-18 07:20 | Day surgery (SDC) | payer MEDICARE, SELFPAY ==
--- NOTE | 2020-11-18 06:22 | ROE_ITS ---
Date of service: 11/18/20 Time of Service: 11:30 Operative Note Operative Note DATE OF PROCEDURE: 11/18/20 PRE-OP DIAGNOSIS: Lower extremity skin lesion POST-OP DIAGNOSIS: same PROCEDURE: Excision of lower extremity lesion with advancement flap SURGEON: Yuliana Cano SERVICE DESK ASSOCIATE: Di Ray ANESTHESIA TYPE: Local By Surgeon, MAC and Primary Nerve Block Refer to Anesthesia Record ESTIMATED BLOOD LOSS: 15 PATHOLOGY: other (skin lesion) COMPLICATIONS: None Patient was transported to: PACU Patient's condition: stable Indications: Ms Felipe is a pleasant 75-year-old female with a 2 x 2.1 cm raised lesion just above her right ankle. This is large enough that I am not sure that I will be able to close it primarily. I think she will either need a Z-plasty or an advancement flap for closure. I have discussed this with her I did tell her that she will more than likely have a quite a long scar. She is okay with that and just wants to have this removed. We reviewed the procedure as well as the risks and benefits. Complications include but are not limited to bleeding, infection, wound dehiscence, flap necrosis or recurrence. Questions were entertained and answered to her satisfaction and she wished to proceed. No guarantees were given or implied. I discussed with the patient doing MAC sedation with local as well as a block by anesthesia. I did discuss the case with anesthesia and and Devin Curiel did say that they could do a block. Proceed with excision of lesion with closure either primarily, Z-plasty or advancement flap. Findings: ulcerated lesion 2.8 x 3 cm Procedure Description: After informed consent was obtained and the right lower extremity was marked, the patient was taken to the operating room and placed in a supine position with her right lower extremity on a bone cushion. Monitors were applied and a timeout was done. The patient's name, date of , allergies to medications, procedure to be done and site, DVT prophylaxis and antibiotic prophylaxis were reviewed. Fire risk was assessed. The patient was sedated with MAC anesthesia. Once sedated and comfortable her right lower extremity from the knee down to the foot were prepped and draped in a sterile surgical fashion using iodine. Next a mixture of quarter percent bupivacaine and Exparel were injected around the wound. A round incision was made around the lesion which measured 4 cm. The dissection was taken down with cautery through the subcutaneous tissue down to the fascia overlying the muscle. The lesion was removed and marked at the anterior edge. The specimen was placed in formalin and sent to pathology. The wound was irrigated and bleeding was stopped using cautery. An T- plasty closure of the round defect was done. Once the necessary incisions were made the flap was closed with interrupted 4-0 vircyl subcutaneous stitches and 3-0 proline was used to closed the dermis. The skin was cleaned and dried and and Mastisol and Steri-Strips were applied. A pressure dressing was applied with 4x4, kerlix and secured with TACHO wrap. The patient was woken up and taken back to [facility] in stable condition. Instrument, sponge and needle counts were correct. The patient toelrated the procedure well and there were no immediate complications.
--- NOTE | 2020-11-18 06:23 | W.PM.DSUDISC ---
Discharge Plan Disposition Patient Disposition: HOME Condition: Good Discharge Details Reason For Visit: excision of skin lesion Attending Provider: Yuliana Cano Primary Care Provider: Keena Baca Home Meds and New Rx's Prescriptions: Continued Multiple Vitamin, Womens Tablet 1 tab PO DAILY RF: 0 Pulmicort Flexhaler 180 mcg/actuation aerosol powdr breath activated 1 inh inhalation BID RF: 0 losartan 100 mg tablet 100 mg PO DAILY RF: 0 hydrochlorothiazide 25 mg tablet 25 mg PO DAILY RF: 0 amlodipine 2.5 mg tablet 2.5 mg PO DAILY RF: 0 albuterol sulfate [ProAir HFA] 90 mcg/actuation HFA aerosol inhaler 2 puff inhalation Q6H PRNRF: 0 valacyclovir 1 gram tablet 1,000 mg PO TID RF: 0 potassium 99 mg tablet 99 mg PO DAILY RF: 0 fluoxetine [Prozac] 20 mg Capsule 20 mg PO DAILY RF: 0 potassium gluconate 550 mg (90 mg) Tablet 90 mg PO DAILY RF: 0 omega-3 fatty acids Capsule 500 mg PO DAILY RF: 0 Discharge Instructions Additional Instructions: Activity at Home after surgery: 1. As tolerated 2. Elevate Right lower extremity when sitting Diet, Nutrition, & wound healin. Avoid alcohol until after you are recovered from your surgery 2. Make sure to eat plenty of lean protein (meat, fish, eggs, cottage cheese, beans) 3. Eat a variety of fruits and vegetables. Eat plenty of high fiber foods to avoid constipation. 4. Drink plenty of liquids to stay hydrated and avoid constipation Pain Medications: 1. Tylenol 650mg every 6 hours as needed and Ibuprofen 600 mg every 6 hours as needed. You may alternate between the 2 medications every 3 hours For Constipation: 1. Take Milk of Magnesia or MiraLax as needed for constipation Other: 1. You may shower daily. Do not scrub the incisions 2. Do not soak the incisions for 1 week 3. You may alternate ice and heat as needed for pain and swelling Wound Care: 1. Keep the incisions clean and dry Please call our office if you develop: 1. Fevers >101.5 2. Nausea or Vomiting 3. Worsening pain 4. Redness and thick discharge from the wounds If after hours please call the Hospital at and ask to speak to the on-call surgeon Referrals: Yuliana Cano MD [ [facility] STAFF PHYSICIAN] - Diet:: As Tolerated Discharge Orders Discharge Orders: Discharge Order (Routine); Ordered 11/18/20 Ordered By: Yuliana Cano
[2020-11-18 07:34] VITALS: BP 145/79; PULSE 78; RESP 16; TEMP 36.3; O2SAT 96
[2020-11-18] MEDS: Lactated Ringers 1,000 ML 80 ML IV (07:54)
--- NOTE | 2020-11-18 08:39 | W.ANESPRE ---
General Info Date of Service Date Performed: 11/18/20 Height: 5 ft 4 in Weight: 63.1 kg Body Mass Index (BMI): 23.8 Surgical Procedure: Operation Date: 11/18/20 08:40 Proposed Procedures Side Surgeon p Excision of right lower extermity skin Lesion Right Yuliana Cano MD Meds Allergies and Home Medications Allergies Allergy/AdvReac Type Severity Reaction Status Date / Time silver Allergy Intermediate inflammatio Verified 11/18/20 07:04 [From Tegaderm AG Mesh] n Sulfa (Sulfonamide Allergy high fever Verified 11/18/20 07:04 Antibiotics) and a rash Home Medication Medication Instructions Recorded fluoxetine [Prozac] 20 mg PO DAILY 11/14/18 urbmdxraciyd-Gf-prhm-minerals 1 tab PO DAILY tab 11/22/18 potassium gluconate 90 mg PO DAILY 07/23/20 omega-3 fatty acids [Fish Oil] 500 mg PO DAILY 07/27/20 albuterol sulfate 90 mcg/actuation 2 puff INHALATION Q6H PRN 10/29/20 aerosol inhaler amlodipine 2.5 mg tablet 2.5 mg PO DAILY 10/29/20 budesonide 180 mcg/actuation 1 inh INHALATION BID 10/29/20 breath activated powder inhaler hydrochlorothiazide 25 mg tablet 25 mg PO DAILY 10/29/20 losartan 100 mg tablet 100 mg PO DAILY 10/29/20 potassium 99 mg tablet 99 mg PO DAILY tab 10/29/20 valacyclovir 1 gram tablet 1,000 mg PO TID 10/29/20 Current Visit Medications: Current Medications Generic Name Dose Route Start Last Admin Trade Name Freq PRN Reason Stop Dose Admin Ringer's Solution 1,000 mls @ 80 mls/hr 11/18/20 06:00 11/18/20 07:54 IV 12/17/20 23:59 80 mls/hr INFUSION KYLER Administration Cefazolin Sodium 2,000 mg/ 100 mls @ 200 mls/hr 11/18/20 06:00 Sodium Chloride IVPB 11/18/20 16:00 PREOP KYLER Ondansetron HCl 4 mg/ Sodium 52 mls @ 200 mls/hr 11/18/20 06:24 Chloride IVPB Q6H PRN PRN IV Miscellaneous Supplies 1 each 11/18/20 06:00 Iv Access IV 09/16/21 23:59 DIRECTED KYLER Oxycodone HCl 5 mg 11/18/20 06:24 Oxycodone 5 Mg Tab PO Q3H PRN PRN Pain Sodium Chloride 0 ml 11/18/20 06:00 Normal Saline Flush 10 Ml Syr IV 12/17/20 23:59 PRN PRN Sodium Chloride 0 ml 11/18/20 06:00 Normal Saline 10 Ml Vial IJ 12/17/20 23:59 DIRECTED PRN Sterile Water 0 ml 11/18/20 06:00 Water,Injection,Sterile 10 Ml Vial IJ 12/17/20 23:59 DIRECTED PRN PFSH Active Problems Active Problems: Problem Status Onset Code Fracture of left clavicle 11/14/18 S42.002A Nuclear sclerotic cataract of left eye H25.12 Cortical cataract of left eye H26.9 Asthma J45.909 Heart murmur R01.1 Anxiety F41.9 Balance problem R26.89 Blood glucose elevated R73.9 Alcohol use Z72.89 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 History of acoustic neuroma Z86.018 Skin lesion L98.9 Medical History Medical History Acoustic neuroma Alcohol use Anxiety Asthma Balance problem Blood glucose elevated CLL (chronic lymphocytic leukemia) Cortical cataract of left eye Deafness in right ear Depression Fracture of left clavicle (11/14/18) Heart murmur Hypertension Surgical History Surgical History S/P cataract extraction and insertion of intraocular lens left Tobacco Smoking/Tobacco Use Status: Former Tobacco Use Alcohol Alcohol Intake: current Alcohol intake frequency: 0-2 drinks per day Alcohol type: wine Substance Use Substance use type: does not use Vital Signs and Lab Results Vital Signs Most Recent Vital Signs in EMR: Most Recent Vital Signs Temp Pulse Resp BP Pulse Ox 36.3 C L 78 16 145/79 H 96 11/18/20 07:34 11/18/20 07:34 11/18/20 07:34 11/18/20 07:34 11/18/20 07:34 Lab Results Blood Type / Crossmatch: No Data to Display Complete Blood Count: White Blood Count 19.99 10^3/uL (4.4-10.8) H 10/28/20 13:15 10/28/20 Red Blood Count 4.62 10^6/uL (3.93-5.22) 10/28/20 13:15 10/28/20 Hemoglobin 13.3 g/dL (11.2-15.7) 10/28/20 13:15 10/28/20 Hematocrit 39.6 % (36.0-46.0) 10/28/20 13:15 10/28/20 Platelet Count 140 10^3/uL (130-400) 10/28/20 13:15 10/28/20 Complete Metabolic Panel: Sodium Level 142 mmol/L (136-145) 10/28/20 13:15 10/28/20 Potassium Level 3.5 mmol/L (3.5-5.1) 10/28/20 13:15 10/28/20 Chloride Level 103 mmol/L (98-107) 10/28/20 13:15 10/28/20 Carbon Dioxide Level 28.5 mmol/L (21.0-32.0) 10/28/20 13:15 10/28/20 Blood Urea Nitrogen 16 mg/dL (7-18) 10/28/20 13:15 10/28/20 Creatinine 0.8 mg/dL (0.55-1.02) 10/28/20 13:15 10/28/20 Estimated GFR/1.73 m2 >= 60.00 (mL/min/1.73m2) 10/28/20 13:15 10/28/20 Calcium Level 9.6 mg/dL (8.5-10.1) 10/28/20 13:15 10/28/20 Albumin 4.5 g/dL (3.4-5.0) 10/28/20 13:15 10/28/20 Glucose Level 123 mg/dL (74-106) H 10/28/20 13:15 10/28/20 Hemoglobin A1c 6.1 % (<5.7) H 10/28/20 13:15 10/28/20 Liver Function Panel: Alanine Aminotransferase (ALT/SGPT) 26 U/L (14-59) 10/28/20 13:15 10/28/20 Aspartate Amino Transf (AST/SGOT) 21 U/L (15-37) 10/28/20 13:15 10/28/20 Coagulation Panel: No Data to Display Cardiac Panel: No Data to Display Arterial Blood Gas: No Data to Display Venous Blood Gas: No Data to Display Pancreas Panel: No Data to Display Thyroid Panel: Thyroid Stimulating Hormone (TSH) 2.66 uIU/mL (0.36-3.74) 10/28/20 13:15 10/28/20 Infectious Disease: No Data to Display Blood Cultures: No Data to Display Toxicology Panel: No Data to Display Anesthesia Assessment and Plan Anesthesia History Personal History: No History of Anesthesia Complications Family History: No Family History of Anesthesia Complications Exercise Tolerance Exercise Tolerance: Metabolic Equivalents>4 Pertinent Negatives Pertinent Negatives: No Symptoms of GERD, No Major Cardiovascular Symptoms or Complaints, No Major Pulmonary Symptoms or Complaints (Very mild asthma that i have inhalers for) and No History of CVA/TIA Cardiac & Pulmonary Exam Cardiac Exam: Normal S1/S2 Heart Sounds and Heart Murmur Present Pulmonary Exam: Clear Bilateral Breath Sounds Airway Exam Known Difficult Airway: No Mallampati Class: 1 Mouth Opening: Normal (> 3cm) Thyromental Distance: Less than 3 cm Neck Range of Motion: Full ROM Neck Circumference: Normal Teeth Condition: Normal Dentition ASA Classification ASA Score: ASA 2 Emergency Case?: No NPO Status NPO Status: NPO Clears >2 hours, Solids >8 hours Anesthesia Plan Resuscitation Status: Full Code Anesthesia Technique: General Anesthesia Airway Planned: Natural Airway Monitors Used: Standard Monitors
[2020-11-18 08:43] VITALS: BMI 23.8
--- NOTE | 2020-11-18 10:00 | W.ANESNERVE ---
Nerve Block Single Injection Procedure Date and Time Date Performed: 11/18/20 Procedure Start: 09:10 Location Where Procedure Performed Procedure Location: PACU Reason Performed: Postoperative Analgesia Requesting Provider: Yuliana Cano Timeout Performed Timeout Performed: Yes Monitoring Used ECG, Blood Pressure and SpO2 Sterility Sterility: Hand Hygiene, Surgical Cap, Surgical Mask, Sterile Gloves and Chlorhexidine Sedation Given During Procedure Sedation Given (Indicate Dose Given): No Sedation given Patient Mental Status Patient Mental Status: Awake Nerve Block 1st Nerve Block: Laterality: Right Block Type: Popliteal Sciatic Needle / Catheter Used: 100mm SonoPlex II Local Anesthetic Bolus (Indicate Dose Given): Lidocaine used for local infiltration of skin, Injected in 3-5ml increments after negative blood aspiration, Bupivacaine 0.5% Dose:: 20ml and Exparel Dose:: 10ml Additives (Indicate Dose Given): Normal Saline (5ml) Ultrasound: Sterile probe cover and gel used Ultrasound Image Saved?: Yes Nerve Stimulator: Not Used Paresthesia: None Procedure Tolerated: No Complications and Patient tolerated well Procedure Outcome: Successful Performed By: Devin Curiel
[2020-11-18] MEDS: ceFAZolin 2,000 MG in Normal Saline 100 ML 200 MG IVPB (10:07)
--- NOTE | 2020-11-18 10:28 | SKI_PTH ---
PATIENT: Latisha Felipe LOC: [facility] U#:[id number] AGE/SX: 75/F ROOM: RE11/18/[address]: Yuliana Cano MD : [id number] BED: DIS: 11/18/2020 SPEC #: [id number] RECD: 11/18/20 12:45 STATUS: JACK RELuis Enrique #: [id number] MODE: 11/18/20 10:[address]: Yuliana Cano DEPT: Surgical Specimen RECD BY: Angela Cameron ENTERED: 11/18/20 12:46 SP TYPE: LIZ MILLER DR: Keena Baca Tissues: 1 - SKIN BIOPSY(SHAVE/PUNCH) Procedures: IMMUNOPEROXIDASE STAIN SKIN LEVEL 4 Comments: [id number]
[2020-11-18] MEDS: Bupivacaine 0.25% Pres-Free 30 ML VIAL (10:50)
[2020-11-18 11:10] VITALS: BP 100/58; PULSE 52; RESP 16; TEMP 36
[2020-11-18 11:35] VITALS: BP 134/54; PULSE 52; RESP 16; TEMP 36; O2SAT 97
--- NOTE | 2020-11-18 12:36 | PT.INIE ---
Date of service: 11/18/20 Time of Service: 12:36 PT Notes Visit Reasons: excision of skin lesion Physical Therapy Day Surgery Initial Evaluation Date: 11/18/2020 Referring Doctor: Yuliana Cano MD PT Orders: PT CONSULT: Eval for assistive device. Status post surgery on right LE. Precautions: WBAT on R LE with AD. Patient Profile/Admitting Diagnosis: Latisha is a 25-year-old female with lower extremity skin lesion and is status post excision of the LE lesion with advancement flap on postoperative day 0. 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 Independent with all aspects of ADLs prior to surgery Equipment Owned/DME: None Subjective: Agreeable to consult and trying both bilateral axillary crutches and a front wheeled walker to see which will provide her with better stability when walking. Per Nurse You, surgeon ordered NWB on R LE. Objective: General Observation: Dressing and TACHO wrap to R leg and foot. Mental Status: Alert and oriented x4 Pain: None ROM: Right Lower Extremity: Hip flexion WFL. Hip abduction WFL. Knee flexion WFL. Knee extension NT. Ankle dorsiflexion NT. Ankle plantarflexion NT. Strength: Right Lower Extremity: Hip flexors 5/5. Hip abductors 5/5. Knee flexors 5/5. Knee extensors 3-/5. Ankle dorsiflexors 3-/5. Ankle plantarflexors 4-/5. Sensation: Intact on R LE Bed Mobility/Transfers: Supine to sit independent Sit to stand contact-guard assist Stand to sit standby assist Bed to chair standby assist Gait: Using the bilateral axillary crutches patient tolerated 40 feet of level surface ambulation but appeared unsteady with NWB on right LE with contact-guard to minimal assist.. With the FWW, patient was able to complete 80 feet of level surface ambulation requiring only standby assist. Patient indicates better stability with use of walker and is agreeable to going home with 1. Stairs: Up and down 6 x 4 inch steps while holding onto both rails with NWB on R LE with no increase in pain. Balance: Static Sitting: Normal Dynamic Sitting: Normal Static Standing: Unable, patient is NWB on right LE Dynamic Standing: Unable, patient is NWB on right LE Special Tests: Mobility Limitations Standardized Measure [facility] 6 clicks Basic Mobility Inpatient Short Form: Raw Score: 22 CMS Score: 21% deficit Informed Consent/Education: Patient instructed in purpose of PT consult. Assessment: Requires the use of a front wheeled walker for more stable gait and decreased fall risk at home. Patient was instructed on techniques with ambulation with NWB on right LE per verbal order of Md through Nurse Orta although discharge instructions states activity as tolerated. Patient presents with clinical signs and symptoms consistent with current/admitting diagnoses that have resulted to mobility limitations, gait instability, generalized weakness, and impairment of motor control as demonstrated by the following impairment level findings: 1. Decreased strength to right ankle major muscle groups 2. Impaired standing balance 3. Limitation of joint range of motion in right ankle Impairments are contributing to the following functional limitations: 1. Inability to safely ambulate without assistive device 2. Increase completion time for mobility ADL performance 3. Increased fall risk Patient is assessed as a complexity based on the following: History: 75-year-old female with impairment level findings, functional limitations, and past medical history as indicated above Examination: Demonstrable impairment in strength, balance, and mobility level with underlying impairments and functional limitations as documented above Presentation: Stable Decision Makin low complexity Goals: N/A. PT evaluation and 1-2 treatment sessions only for functional mobility training using recommended AD and for HEP instruction. Plan of Care/Treatment Plan: N/A. PT evaluation and 1-2 treatment session only for functional mobility training using recommended AD and for HEP instruction. DISCHARGE RECOMMENDATIONS: Home when medically cleared by surgeon. Will require the use of a front wheeled walker to increase ability to stay at home and to reduce fall. TREATMENT CODE/TIME: 53750 x 15 minutes, 62914 x 15 minutes beginning at 12:36 PM. Thank you for the opportunity to participate in the care of this patient. Aarti Best PT, DPT, CLT [facility] [place], [place]
--- NOTE | 2020-11-18 13:40 | W.ANESPOSTOP ---
Postoperative Evaluation Date, Time and Location Date Performed: 11/18/20 Time Performed: 11:40 Patient Location: Day Surgery Unit Vital Signs Most Recent Imported Vital Signs: Most Recent Vital Signs Temp Pulse Resp BP Pulse Ox 36.0 C L 52 L 16 134/54 L 97 11/18/20 11:35 11/18/20 11:35 11/18/20 11:35 11/18/20 11:35 11/18/20 11:35 Pain Score Most Recent Pain Score: Most Recent Pain Score Pain Level 0 11/18/20 11:35 Assessment Mental Status: Awake (Alert & Oriented to Patient Baseline) Airway and Respiratory Function: Patent airway with normal (patient baseline) respiratory exam Cardiovascular Function: Hemodynamically Stable Hydration Status: Adequately Hydrated Nausea & Vomiting: No Nausea or Vomiting Pain: Pt. Denies Any Pain Peripheral Nerve Block: Regional nerve block not resolved at time of post operative discharge
== END 2020-11-18 13:27 | disposition home or self-care (01) ==
PROVIDERS: PCP Nurse Practitioner; Visit Provider Surgery
PROC: (CPT 14020; principal; 2020-11-18 08:30)
DX: C44.712 Basal cell carcinoma of skin of right lower limb, including hip (principal)
CPT/HCPCS: 14020; 97161; 97530; 88305; 88361; J0690; J1885; J2001; J2250; J2405; J2704

== ENCOUNTER → 2020-11-20 09:46 | Outpatient (BNVA) | payer MEDICARE, SELFPAY | PROVIDERS: PCP Nurse Practitioner; Referring Provider Nurse Practitioner; Visit Provider Surgery | DX: Z48.817 Encounter for surgical aftercare following surgery on the skin and subcutaneous tissue (principal); L98.9 Disorder of the skin and subcutaneous tissue, unspecified ==

== ENCOUNTER → 2020-11-27 09:57 | Outpatient (BNVA) | payer MEDICARE, SELFPAY | PROVIDERS: PCP Nurse Practitioner; Referring Provider Nurse Practitioner; Visit Provider Surgery | DX: T81.31XA Disruption of external operation (surgical) wound, not elsewhere classified, initial encounter (principal) ==

== ENCOUNTER → 2020-11-30 12:57 | Outpatient (BNVA) | payer MEDICARE, SELFPAY | PROVIDERS: PCP Nurse Practitioner; Referring Provider Nurse Practitioner; Visit Provider Physical Therapy Assistant | DX: Z48.817 Encounter for surgical aftercare following surgery on the skin and subcutaneous tissue (principal) ==

== ENCOUNTER → 2020-12-03 09:27 | Outpatient (BNVA) | payer MEDICARE, SELFPAY | PROVIDERS: PCP Nurse Practitioner; Referring Provider Nurse Practitioner; Visit Provider Surgery | DX: Z48.817 Encounter for surgical aftercare following surgery on the skin and subcutaneous tissue (principal); L98.8 Other specified disorders of the skin and subcutaneous tissue; C44.722 Squamous cell carcinoma of skin of right lower limb, including hip | CPT/HCPCS: 99213 ==

== ENCOUNTER → 2020-12-08 09:24 | Outpatient (BNVA) | payer MEDICARE, SELFPAY | PROVIDERS: PCP Nurse Practitioner; Referring Provider Nurse Practitioner; Visit Provider Surgery | DX: L98.8 Other specified disorders of the skin and subcutaneous tissue (principal); T81.31XD Disruption of external operation (surgical) wound, not elsewhere classified, subsequent encounter ==

== ENCOUNTER → 2020-12-11 08:53 | Outpatient (BNVA) | payer MEDICARE, SELFPAY | PROVIDERS: PCP Nurse Practitioner; Referring Provider Nurse Practitioner; Visit Provider Physical Therapy Assistant | DX: Z48.817 Encounter for surgical aftercare following surgery on the skin and subcutaneous tissue (principal); C44.722 Squamous cell carcinoma of skin of right lower limb, including hip ==

== ENCOUNTER → 2020-12-16 08:10 | Outpatient (BNVA) | payer MEDICARE, SELFPAY | PROVIDERS: PCP Nurse Practitioner; Referring Provider Nurse Practitioner; Visit Provider Surgery | DX: Z48.01 Encounter for change or removal of surgical wound dressing (principal) ==

== ENCOUNTER → 2020-12-18 10:59 | Outpatient (BNVA) | payer MEDICARE, SELFPAY | PROVIDERS: PCP Nurse Practitioner; Referring Provider Nurse Practitioner; Visit Provider Physical Therapy Assistant | DX: Z48.01 Encounter for change or removal of surgical wound dressing (principal) ==

== ENCOUNTER → 2020-12-25 09:23 | Outpatient (BNVA) | payer MEDICARE, SELFPAY | PROVIDERS: PCP Nurse Practitioner; Referring Provider Nurse Practitioner; Visit Provider Physical Therapy Assistant | DX: Z48.01 Encounter for change or removal of surgical wound dressing (principal) ==

== ENCOUNTER → 2021-01-01 14:10 | Outpatient (BNVA) | payer MEDICARE, SELFPAY | PROVIDERS: PCP Nurse Practitioner; Referring Provider Nurse Practitioner; Visit Provider Physical Therapy Assistant | DX: Z48.01 Encounter for change or removal of surgical wound dressing (principal) ==

== ENCOUNTER → 2021-01-07 15:04 | Outpatient (BNVA) | payer MEDICARE, SELFPAY | PROVIDERS: PCP Nurse Practitioner; Referring Provider Nurse Practitioner; Visit Provider Physical Therapy Assistant | DX: Z48.01 Encounter for change or removal of surgical wound dressing (principal) ==

== ENCOUNTER → 2021-01-22 11:06 | Outpatient (BNVA) | payer MEDICARE, SELFPAY | PROVIDERS: PCP Nurse Practitioner; Referring Provider Nurse Practitioner; Visit Provider Physical Therapy Assistant | DX: L98.8 Other specified disorders of the skin and subcutaneous tissue (principal) ==

== ENCOUNTER 2021-01-29 03:35 | Outpatient (CLI) | payer MEDICARE, SELFPAY ==
[2021-01-29 13:47] LABS: Abs Immature Grans 0.04 10^3/uL (0.0-0.06); Absolute Monocyte Count 1.47 10^3/uL (0.1-0.8); Absolute Neutrophil Count 4.03 10^3/uL (1.2-6.7); Basophils % 0.2; Eosinophils % 0.5; HCT 40.8 % (36.0-46.0); HGB 13.1 g/dL (11.2-15.7); Immature Grans % 0.2; Lymphocytes % 75.9; MCH 28.7 pg (27.0-33.0); MCHC 32.1 % (32.0-36.0); MCV 89.5 fL (80-95); Monocytes % 6.2; Nucleated RBC 0 %; Platelet Count 126 10^3/uL (130-400); RBC 4.56 10^6/uL (3.93-5.22); RDW 13.2 % (11.7-14.6); RDW-SD 43.3 fL; WBC 23.73 10^3/uL (4.4-10.8)
[2021-01-29 13:49] LABS: Absolute Basophil Count 0.05 10^3/uL (0.0-0.2); Absolute Eosinophil Count 0.12 10^3/uL (0.0-0.7); Absolute Lymphocyte Count 18.01 10^3/uL (1.2-3.4)
[2021-01-29 13:59] LABS: ALT 26 U/L (14-59); AST 18 U/L (15-37); Albumin 4.2 g/dL (3.4-5.0); Alkaline Phosphatase 73 U/L (46-116); Anion Gap 5.3 mmol/L (3-11); BUN 21 mg/dL (7-18); Bilirubin, Total 0.5 mg/dL (0.2-1.0); CO2 32.7 mmol/L (21.0-32.0); CREATININE 0.8 mg/dL (0.55-1.02); Chloride 105 mmol/L (98-107); Glucose 109 mg/dL (74-106); LDH 182 U/L (81-234); Potassium 4.1 mmol/L (3.5-5.1); Sodium 143 mmol/L (136-145); Total Protein 6.9 g/dL (6.4-8.2)
[2021-01-29 14:05] LABS: Diff Comment Agrees w/ Instrument; RBC Morphology Normal
== END 2021-01-29 03:36 | disposition home or self-care (01) ==
LOC: LBO 03:35
PROVIDERS: PCP Nurse Practitioner; Visit Provider Internal Medicine Hematology
DX: C91.10 Chronic lymphocytic leukemia of B-cell type not having achieved remission (principal)
CPT/HCPCS: 36415; 80053; 83615; 85025

== ENCOUNTER 2021-06-14 21:37 | Outpatient (REF) | payer MEDICARE, SELFPAY ==
[2021-06-16 11:47] LABS: COVID-19 RT-PCR UVMMC Result Negative (Negative)
== END 2021-06-14 21:38 | disposition home or self-care (01) ==
LOC: LBN 21:37
PROVIDERS: PCP Nurse Practitioner; Visit Provider Family Medicine
DX: Z20.822 Contact with and (suspected) exposure to COVID-19 (principal); R05.8 Other specified cough
CPT/HCPCS: U0003; U0005

== ENCOUNTER 2021-06-16 13:37 | Outpatient (CLI) | payer MEDICARE, SELFPAY ==
--- NOTE | 2021-06-16 11:55 | DI.RAD_ITS ---
Exam(s) XR CHEST 2V PA LATERAL EXAM: XR CHEST 2V PA LATERAL CLINICAL HISTORY: COUGH AND WHEEZE FOR PAST SEVERAL DAYS, R05.8. TECHNIQUE: 2D digital imaging was performed. COMPARISON: No exams were available for comparison FINDINGS: 2 views: Heart size is normal. The mediastinum is not widened. Lungs are clear. No infiltrates nor pleural effusions. IMPRESSION: No acute pulmonary findings. DATA REPOSITORY: RADIATION DOSE DELIVERED:
== END 2021-06-16 13:57 ==
PROVIDERS: PCP Nurse Practitioner; Visit Provider Physician Assistant
DX: R05.8 Other specified cough (principal)
CPT/HCPCS: 71046

== ENCOUNTER 2021-06-24 01:55 | Outpatient (CLI) | payer MEDICARE, SELFPAY ==
--- NOTE | 2021-06-24 15:00 | DI.US_ITS ---
APPROVED REPORT EXAM: Comprehensive 2D, Doppler, and color-flow Echocardiogram Patient Location: Out-Patient Massage Therapist: Galina Soriano RDCS (AE) Indications: Heart Murmur Other Information Study Quality: Adequate Conclusion Normal left ventricular wall thickness and chamber size. Estimated ejection fraction is 60%. Wall m otion is normal Normal right ventricular size and systolic function Both atria are normal in size Aortic valve is sclerotic with mild to moderate aortic stenosis. Peak gradient is 30, mean 17 mmHg. Calculated aortic valve area is 1.18 cm?? Normal mitral valve with trace regurgitation Normal tricuspid valve with trace to mild regurgitation. Estimated right ventricular systolic pressu re is 25 mmHg Wall motion Left Ventricle The left ventricle is normal size. The left ventricular systolic function is normal. The left ventric ular ejection fraction is within the normal range. There is normal left ventricular wall thickness. T here is normal LV segmental wall motion. There is no ventricular septal defect visualized. LVEF is 60 %. Right Ventricle The right ventricle is normal size. The right ventricular systolic function is normal. The RVSP is 25 .0mmHg. Atria The left atrium size is normal. The right atrium size is normal. The interatrial septum is intact wit h no evidence for an atrial septal defect. Atrial septal aneurysm is present. Aortic Valve Aortic valve is calcified. Number of aortic valve leaflets could not be assessed. Mild to moderate ao rtic stenosis. Peak aortic valve gradient is 30.5mmHg. Highest mean aortic valve gradient is 17.1_mmH g. Calculated JV by the continuity equation is 1.18cm2. No aortic regurgitation is present. Mitral Valve The mitral valve is normal in structure. No evidence of mitral valve stenosis. Trace mitral regurgita tion. Tricuspid Valve The tricuspid valve is normal in structure. There is no tricuspid valve stenosis. Trace to mild tricu spid regurgitation. Pulmonic Valve The pulmonary valve is normal in structure. There is no pulmonic valvular stenosis. Trace pulmonic re gurgitation. Great Vessels The aortic root is normal in size. Ascending aorta is not well visualized. Aortic arch is normal in c aliber. IVC is normal in size and collapses >50% with inspiration. Pericardium There is no pericardial effusion. 2D Dimensions IVSD d PLAX 0.72 cm F: 0.6-1.0 LV Vol A2C d MOD 73.4 mL LVPW d PLAX 0.82 cm F: 0.6 - 1.0 LV Vol A4C d MOD 85.0 mL LVID d PLAX 4.00 cm F: 3.8 - 5.2 LA vol/ BSA A2C s A-L 18.1 mL/m2 LVDs 2.70 cm F: 2.2 - 3.5 LA vol/ BSA A4C s A-L 18.0 mL/m2 Ao Root d 2.94 cm F: 2.7 - 3.3 LA Vol/ BSA Biplane s A-L 18.6 mL/m2 RA Area A4C 10.25 cm2 LA Area A4C s MOD 12.56 cm2 RA Vol/ BSA A4C s A-L 13.6 mL/m2 LA Area A2C s MOD 12.25 cm2 LV EF Teichholz 60.3 % LV EF A4C MOD 59.4 % LVEF (Oliveira's) 61.29 % F: 54 - 74 LV EF A2C MOD 60.5 % LV Volume 65.04 mL F: 46 - 106 LV EF Biplane MOD 61.3 % LV Volume Index 38.71 mL/m2 F: 29 - 61 SV 49.99 mL LV Vol Biplane MOD 81.6 mL SV Index 29.74 mL/m2 FS 31.70 % M-Mode TAPSE 2.19 cm (M/F) >1.7 LV Diastology MV E' medial 0.101 (>0.07 m/s) E/A Ratio 0.6 LV E/e MED 5.10 (<14) MV E Vmax 0.52 (0.4-1.3 m/s) MV E' lateral 0.075 (>0.1 m/s) MV A Vmax 0.80 (0.4-1.3 m/s) LV E/e LAT 6.85 (<14) MV E/A Ratio 0.61 MV E/E' medial 5.12 MV E/E' lateral 6.90 Aortic Valve LVOT Area 3.54 cm2 AoV Area Vmax 1.18 cm2 LVOT Vmax 0.92 m/s AoV Area/ BSA (Vmax) 0.70 cm2/m2 LVOT Mean Delmer. 0.61 m/s JV Mean Delmer. 1.10 cm2 LVOT Peak Grad 3.4 mmHg JV Mean Delmer. Index 0.65 cm2/m2 LVOT Mean Grad 1.7 mmHg LVOT VTI 0.214 m LVOT Diam s 2.10 cm AoV Vmax 2.76 m/s Velocity Ratio 0.33 AoV Mean Delmer. 1.96 m/s AoV Peak Grad 30.5 mmHg LVOT SV 75.92 mL AoV Mean Grad 17.1 mmHg AoV VTI 0.548 m AoV Area VTI 1.39 cm2 AoV Area/ BSA (VTI) 0.82 cm/m2 Mitral Valve MV DT 309 (160-240 msec) MV PHT 90 msec MV Area PHT 2.45 cm2 MV VTI 0.281 m MV Area VTI 2.70 (4.0-6.0 cm2) Pulmonary Valve PV Vmax 1.08 (0.5-1.5 m/s) RVOT Peak Gr. 2.08 mmHg PV Peak Grad 4.7 mmHg RVOT Mean Gr. 0.90 mmHg PV Mean Grad 3.0 mmHg RVOT VTI 0.135 m PV VTI 0.223 m RVOT Vmax 0.72 m/s Tricuspid Valve TR Peak Grad 22.0 mmHg TR Vmax 2.35 m/s RA Pressure 3.00 mmHg RVSP (TR) 25.0 mmHg
== END 2021-06-24 02:15 ==
PROVIDERS: PCP Nurse Practitioner; Visit Provider Family Medicine
DX: R01.1 Cardiac murmur, unspecified (principal)
CPT/HCPCS: 93306

== ENCOUNTER 2022-01-24 12:17 | Outpatient (REF) | payer MEDICARE, SELFPAY ==
[2022-01-24 15:02] LABS: HCT 39.3 % (36.0-46.0); HGB 12.8 g/dL (11.2-15.7); MCHC 32.6 % (32.0-36.0); MCV 86 fL (80-95); MPV 9.7 fL (8.0-11.0); Platelet Count 151 10^3/uL (130-400); RBC 4.57 10^6/uL (3.93-5.22); RDW-SD 39.8 fL; WBC 24.71 10^3/uL (4.4-10.8)
[2022-01-24 15:33] LABS: ALT 24 U/L (14-59); AST 25 U/L (15-37); Albumin 4.3 g/dL (3.4-5.0); Alkaline Phosphatase 80 U/L (46-116); Anion Gap 8.6 mmol/L (3-11); BUN 22 mg/dL (7-18); Bilirubin, Total 0.4 mg/dL (0.2-1.0); CO2 28.4 mmol/L (21.0-32.0); CREATININE 0.8 mg/dL (0.55-1.02); Calcium 9.6 mg/dL (8.5-10.1); Chloride 102 mmol/L (98-107); Estimated GFR 75.84 (mL/min/1.73m2); Glucose 116 mg/dL (74-106); LDH 279 U/L (81-234); Potassium 3.9 mmol/L (3.5-5.1); Sodium 139 mmol/L (136-145); Total Protein 7.1 g/dL (6.4-8.2)
[2022-01-24 17:03] LABS: Hemoglobin A1C 6.3 % (<5.7)
== END 2022-01-24 12:18 | disposition home or self-care (01) ==
LOC: NCHCN 12:17
PROVIDERS: PCP Nurse Practitioner; Visit Provider Nurse Practitioner Family
DX: R73.03 Prediabetes (principal); I10 Essential (primary) hypertension; F41.8 Other specified anxiety disorders; C91.10 Chronic lymphocytic leukemia of B-cell type not having achieved remission; R27.9 Unspecified lack of coordination
CPT/HCPCS: 80053; 85027; 83036; 83615

== ENCOUNTER 2022-08-08 18:36 | Outpatient (REF) | payer MEDICARE, SELFPAY ==
[2022-08-08 18:23] LABS: Abs Immature Grans 0.05 10^3/uL (0.0-0.06); HCT 38.7 % (36.0-46.0); HGB 13.2 g/dL (11.2-15.7); MCH 29.3 pg (27.0-33.0); MCHC 34.1 % (32.0-36.0); MCV 86 fL (80-95); MPV 9.5 fL (8.0-11.0); Platelet Count 136 10^3/uL (130-400); RDW 12.8 % (11.7-14.6); RDW-SD 39.9 fL
[2022-08-08 18:44] LABS: ALT 35 U/L (14-59); AST 33 U/L (15-37); Albumin 4.4 g/dL (3.4-5.0); Alkaline Phosphatase 68 U/L (46-116); Anion Gap 10.2 mmol/L (3-11); BUN 21 mg/dL (7-18); Bilirubin, Total 0.3 mg/dL (0.2-1.0); CO2 27.8 mmol/L (21.0-32.0); CREATININE 0.9 mg/dL (0.55-1.02); Calcium 9.5 mg/dL (8.5-10.1); Chloride 103 mmol/L (98-107); Estimated GFR 65.84 (mL/min/1.73m2); Glucose 116 mg/dL (74-106); LDH 319 U/L (81-234); Potassium 3.5 mmol/L (3.5-5.1); Sodium 141 mmol/L (136-145); Total Protein 6.9 g/dL (6.4-8.2)
[2022-08-08 19:32] LABS: WBC 25.26 10^3/uL (4.4-10.8)
[2022-08-08 19:33] LABS: Absolute Eosinophil Count 0.25 10^3/uL (0.0-0.7); Absolute Lymphocyte Count 19.96 10^3/uL (1.2-3.4); Absolute Monocyte Count 0.51 10^3/uL (0.1-0.8); Absolute Neutrophil Count 4.55 10^3/uL (1.2-6.7); Diff Comment Manual Differential; RBC Morphology Normal
[2022-08-08 19:45] LABS: Hemoglobin A1C 6.1 % (<5.7)
== END 2022-08-08 18:37 | disposition home or self-care (01) ==
LOC: NCHCN 18:36
PROVIDERS: PCP Nurse Practitioner; Visit Provider Nurse Practitioner Family
DX: I10 Essential (primary) hypertension (principal); F41.8 Other specified anxiety disorders; R73.03 Prediabetes; C91.10 Chronic lymphocytic leukemia of B-cell type not having achieved remission; M12.841 Other specific arthropathies, not elsewhere classified, right hand; M12.842 Other specific arthropathies, not elsewhere classified, left hand
CPT/HCPCS: 80053; 83036; 83615; 85025

== ENCOUNTER 2023-01-20 18:37 | Outpatient (REF) | payer MEDICARE, SELFPAY ==
[2023-01-20 17:07] LABS: Abs Immature Grans 0.05 10^3/uL (0.0-0.06); HCT 39.2 % (36.0-46.0); HGB 13.1 g/dL (11.2-15.7); MCHC 33.4 % (32.0-36.0); MCV 87 fL (80-95); MPV 9.7 fL (8.0-11.0); Platelet Count 126 10^3/uL (130-400); RBC 4.51 10^6/uL (3.93-5.22); RDW 13.2 % (11.7-14.6); RDW-SD 41.2 fL
[2023-01-20 17:24] LABS: Hemoglobin A1C 5.8 % (<5.7)
[2023-01-20 17:25] LABS: Absolute Lymphocyte Count 19.38 10^3/uL (1.2-3.4); Absolute Monocyte Count 0.52 10^3/uL (0.1-0.8); Absolute Neutrophil Count 5.94 10^3/uL (1.2-6.7); Atypical Lymphocytes % 2; Diff Comment Manual Differential; RBC Morphology Normal
[2023-01-20 17:30] LABS: ALT 26 U/L (14-59); AST 19 U/L (15-37); Albumin 4.5 g/dL (3.4-5.0); Alkaline Phosphatase 68 U/L (46-116); Anion Gap 6.4 mmol/L (3-11); BUN 18 mg/dL (7-18); Bilirubin, Total 0.5 mg/dL (0.2-1.0); CO2 31.6 mmol/L (21.0-32.0); CREATININE 0.8 mg/dL (0.55-1.02); Calcium 9.9 mg/dL (8.5-10.1); Chloride 102 mmol/L (98-107); Estimated GFR 75.37 (mL/min/1.73m2); Glucose 133 mg/dL (74-106); LDH 202 U/L (81-234); Potassium 3.4 mmol/L (3.5-5.1); Sodium 140 mmol/L (136-145)
[2023-01-20 17:31] LABS: WBC 25.84 10^3/uL (4.4-10.8)
== END 2023-01-20 18:38 | disposition home or self-care (01) ==
LOC: NCHCN 18:37
PROVIDERS: PCP Nurse Practitioner; Visit Provider Nurse Practitioner Family
DX: C91.10 Chronic lymphocytic leukemia of B-cell type not having achieved remission (principal)
CPT/HCPCS: 80053; 83036; 83615; 85025

== ENCOUNTER 2023-08-16 15:53 | Outpatient (REF) | payer MEDICARE, SELFPAY ==
[2023-08-16 20:58] LABS: HCT 39.9 % (36.0-46.0); HGB 13.1 g/dL (11.2-15.7); MCH 29.4 pg (27.0-33.0); MCHC 32.8 % (32.0-36.0); MCV 90 fL (80-95); MPV 9.8 fL (8.0-11.0); Platelet Count 185 10^3/uL (130-400); RBC 4.46 10^6/uL (3.93-5.22); RDW 13.3 % (11.7-14.6); RDW-SD 43.4 fL
[2023-08-16 21:13] LABS: ALT 26 U/L (14-59); AST 24 U/L (15-37); Albumin 4.4 g/dL (3.4-5.0); Alkaline Phosphatase 75 U/L (46-116); BUN 16 mg/dL (7-18); Bilirubin, Total 0.3 mg/dL (0.2-1.0); CREATININE 0.9 mg/dL (0.55-1.02); Calcium 9.4 mg/dL (8.5-10.1); Chloride 103 mmol/L (98-107); Estimated GFR 65.44 (mL/min/1.73m2); Glucose 124 mg/dL (74-106); Potassium 4.3 mmol/L (3.5-5.1); Sodium 141 mmol/L (136-145); Total Protein 7.1 g/dL (6.4-8.2)
[2023-08-16 21:47] LABS: WBC 25.21 10^3/uL (4.4-10.8)
[2023-08-16 21:49] LABS: Absolute Eosinophil Count 0.25 10^3/uL (0.0-0.7); Absolute Monocyte Count 0.25 10^3/uL (0.1-0.8); Absolute Neutrophil Count 3.78 10^3/uL (1.2-6.7); Atypical Lymphocytes % 4 %; Diff Comment Manual Differential; RBC Morphology Normal
[2023-08-16 21:50] LABS: Absolute Lymphocyte Count 20.92 10^3/uL (1.2-3.4)
[2023-08-16 21:51] LABS: Hemoglobin A1C 6.1 % (<5.7)
== END 2023-08-16 15:54 | disposition home or self-care (01) ==
LOC: NCHCN 15:53
PROVIDERS: PCP Nurse Practitioner Family; Visit Provider Nurse Practitioner Family
DX: R73.03 Prediabetes (principal)
CPT/HCPCS: 80053; 83036; 85025

== ENCOUNTER 2023-10-16 15:14 | Outpatient (REF) | payer MEDICARE, SELFPAY ==
--- OUTSIDE RECORDS SUMMARY | 2023-10-16 15:18 | XMS_ITS | Encounter Summary ---
Author Organization [facility] [place] [address] Care Team Providers Care Compressor Operator Adjuster Name Role Phone Keena Baca APRN Primary Care Provider [phone] Reason for Visit * Reason Comments Wound Check Encounter Details Date Type Department Care Team (Latest Contact Info) Description 04/12/2021 3:00 PM EST Clinical Support Dermatology at [facility] [address] [place] [address] Patrick Cloud MD [facility] [place] [address] Visit for wound check Social History Tobacco Use Types Packs/Day Years Used Date Smoking Tobacco: Former Cigarettes 0.5 15 0 07/06/1974 - 07/06/1989 Smokeless Tobacco: Never Alcohol Use Standard Drinks/Week Comments No 0 (1 standard drink = 0.6 oz pur e alcohol) Sex and Gender Information Value Date Recorded Sex Assigned at Not on file Gender Identity Not on file Sexual Orientation Not on file documented as of this encounter Progress Notes * Patrick Cloud MD - 04/12/2021 3:00 PM EST Images from the original note were not included. Chief complaint: Wound check History of Present Illness: Latisha Felipe is a 75 y.o. female who is status post excision for: Type of tumor: Squamous Cell Carcinoma, well-differentiated Located on the: Left Dorsal Hand Surgery date: 04/05/21 The defect was repaired by: intermediate linear closure Today, the patient reports that on the second day following her Mohs surgery, her wound started looking not so good. She reports that all of her fingers were swollen and bruised, but today only herpointer finger is swollen, no bruising, which she is pleased with. She was started on Keflex BID for 10 days. She began this on 04/08/21. She also reports taking Advil and Tylenol regularly. She statesthe Advil helped much more than the Tylenol. She is worried about the incision and wants to be reassured. Examination: Focused examination performed of the surgical site. See photograph below Assessment: 1 .Maceration and erythema of skin around wound. 2. Swelling of hand and index finger. 3. Mupirocin ointment applied to wound and Telfa gauze secured in place with Hypafix. 4. Hand wrapped in Coban wrap. Plan: 1. Wound cleaned with Hibiclens soap and warm water today. 2. Begin using Mupirocin ointment. Sent to patient's pharmacy. 3. Continue Keflex and current wound care. 4. Patient will search for Hibiclens soap at her pharmacy to use at home. Follow up: 1 week. Note initiated by Yolanda Saldivar, RN Yolanda Saldivar RN has performed the documentation for this encounter in the presence of and acting as a scribe for Dr. Cloud I performed the above scribed service and agree with the accuracy of the documentation in this encounter. Reviewed and signed by: Patrick Cloud Dermatology [facility] Patrick Cloud MD Mohs Micrographic Surgery and Dermatologic Oncology Department of Dermatology [address] [place] [address] documented in this encounter Plan of Treatment Not on file documented as of this encounter Visit Diagnoses Diagnosis Visit for wound check Encounter for other specified aftercare documented in this encounter Care Teams Compressor Operator Adjuster Relationship Specialty Start Date End Date Keena Baca, LUIS CARLOS [address] [place] [address] PCP - General Family Medicine 01/13/21 documented as of this encounter
--- OUTSIDE RECORDS SUMMARY | 2023-10-16 15:18 | XMS_ITS | Encounter Summary ---
Author Organization [facility] [place] [address] Care Team Providers Care Government Guard Name Role Phone GeenaKeena jeter LUIS CARLOS Primary Care Provider Reason for Referral * Consultation (Urgent) - Closed Specialty Diagnoses / Procedures Referred By Nancy mendez Referred To Contact Hematology and Oncology Diagnoses Chronic lymphocytic leukemia not having achieved remission Alaina Oh APRN [address] [place] [address] [facility] Onc Office [address] [place] [phone] Referral ID Status Reason Start Date Expiration Date V isits Requested Visits Authorized [id number] Closed Consult, Test & Treat PCP Updated and/or Approved 09/07/2022 09/07/2023 6 6 Encounter Details Date Type Department Care Team (Latest Contact Info) Description 09/07/2022 Transcribe Orders eDH Incoming Referrals [phone] Alaina Oh APRN [address] [place], [place] [id number] CLL (chronic lymphoid leukemia) in relapse; Chronic lymphocytic leukemia not having achieved remission Social History Tobacco Use Types Packs/Day Years [...] on file documented as of this encounter Plan of Treatment Scheduled Referrals Name Type Priority Associated Diagnoses Orde r Schedule Referral to Hematology and Oncology Outpatient Referral Routine Chronic lymphocytic leukemia not having achieved remission Ordered: 09/07/2022 documented as of this encounter Visit Diagnoses Diagnosis CLL (chronic lymphoid leukemia) in relapse Chronic lymphoid leukemia, in relapse Chronic lymphocytic leukemia not having achieved remission documented in this encounter Care Teams Government Guard Relationship Specialty Start Date End Date Keena Baca, LUIS CARLOS [address] [place] [address] PCP - General Family Medicine 01/13/21 documented as of this encounter
--- OUTSIDE RECORDS SUMMARY | 2023-10-16 15:18 | XMS_ITS | Continuity of Care Document ---
Author Organization [facility] Address [address] [place] [address]- Care Team Providers Care Legal Archivist Name Role Phone EMILY FERGUSON Primary Care Physician [phone] Encounter BVT Date(s): 02/04/22 - 02/04/[address] [place], [place] [address] Encounter Diagnosis Chronic lymphatic leukemia(Discharge Diagnosis) - 02/04/22 Discharge Disposition: Home Attending Physician: TANYA SENIOR Admitting Physician: TANYA SENIOR Allergies, Adverse Reactions, Alerts Substance Reaction Severity Status lisinopril 1 cough Active sulfa drugs Cough Active 1Statused by Person: KIANNA FELDER([facility]) on [phone] Assessment and Plan Extracted from: Title:Visit Note * Author:TANYA SENIOR Date:02/04/22 History of Present Illness Ms. Felipe was seen today in follow-up of her stage II chronic lymphocytic leukemia. Overall feeling well, no new symptoms. She denies any headaches, new area of bone pain, paresthesias, focal weakness, change in her breathing, cough, orthopnea, PND, abdominal pain, nausea or vomiting, loss of appetite, loss of weight, change in bowel habits, diarrhea, constipation, melena, bright red blood per rectum, easy bruising, bleeding, fevers, or night sweats. Review of Systems Otherwise negative Health Status Allergies: Allergic Reactions (All) Severity Not Documented Lisinopril- Cough. Sulfa drugs- Cough., Allergies (2) Active Severity Reaction lisinopril cough sulfa drugs Cough Current medications: (Selected) Prescriptions Prescribed FLUoxetine 40 mg oral capsule: See Instructions, TAKE 1 CAPSULE ONCE DAILY, 90 cap(s), 1 Refill(s) hydrochlorothiazide-losartan 25 mg-100 mg oral tablet: 1 tab(s), Oral, Daily, 90 tab(s), 1 Refill(s) potassium chloride 20 mEq oral powder for reconstitution: 1 packet(s), Oral, BID, bid x 3 days then daily, 30 EA, 0 Refill(s) Documented Medications Documented amLODIPine 5 mg oral tablet: 5 mg = 1 tab(s), Oral, Daily, 0 Refill(s) multivitamin: Daily, 0 Refill(s), Home Medications (5) Active amLODIPine 5 mg oral tablet 5 mg = 1 tab(s), Oral, Daily FLUoxetine 40 mg oral capsule See Instructions hydrochlorothiazide-losartan 25 mg-100 mg oral tablet 1 tab(s), Oral, Daily multivitamin , Daily potassium chloride 20 mEq oral powder for reconstitution 1 packet(s), Oral, BID , No qualifying data available Problem list: All Problems (Selected) Anxiety / 01516509 Aortic stenosis / 1773462193 mild on echo 2012 Asthma / 384325946 mild, intermittent, precip by cold Depression / 2226104469 Elevated fasting glucose / 5010007068 Elevated liver function tests / 920371243 fatty infiltrate on U/S; neg Hep B and C, normal Fe studies, neg CANDY, neg anti- eugene Ab. 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 HEENT exam negative. Atraumatic, pupils equally round reactive to light, sclera nonicteric, throat clear. Neck supple without mass Chest clear without rales or rhonchi. Respiratory movements normal. Heart regular rate and rhythm with 1/6 to 2/6 systolic ejection murmur. Abdomen positive bowel sounds soft nontender without organomegaly Extremities no edema Lymph nodes negative Neuro without gross focal deficit Impression and Plan 1. STAGE II CHRONIC LYMPHOCYTIC LEUKEMIA. She continues to do well, again discussed the natural history of CLL and rationale for ongoing follow-up. At the current time no indications for therapy. CBC remains stable. She has not had a CLL prognostic panel IGH V mutation analysis, at the current time given her stability will monitor. Plan: A. Follow-up in 1 year. B. Several days prior at [facility]: CBC with differential, CMP, and LDH C. At time of concern regarding progression, will perform CLL prognostic panel and IGHV Tatian analysis. 2. SOCIAL. She is living in [facility], but the current time we will continue follow-up here. Again offered referral to closer to home, can change follow-up to closer to home as she desires. Currently wish to be seen here. All of her questions were answered. Voice recognition software used for dictation Future Appointments Immunizations Given and Recorded Vaccine Date Status Refusal Reason pneumococcal (PCV13) 01/29/16 Recorded pneumococcal (PPSV23) 01/30/13 Recorded Medications amLODIPine 5 mg oral tablet 5 mg = 1 tab(s), Oral, Daily, 0 Refill(s) Start Date: 02/04/22 Status: Ordered FLUoxetine 40 mg oral capsule See Instructions, TAKE 1 CAPSULE ONCE DAILY, # 90 cap(s), Refill(s) 1, TAKE 1 CAPSULE ONCE DAILY Start Date: 05/29/17 Status: Ordered hydrochlorothiazide-losartan 25 mg-100 mg oral tablet 1 tab(s), Oral, Daily, # 90 tab(s), 1 Refill(s), Pharmacy: [facility], 1 tab(s) Oral Daily Start Date: 06/14/17 Status: Ordered multivitamin Daily, 0 Refill(s) Start Date: 02/20/18 Status: Ordered potassium chloride 20 mEq oral powder for reconstitution = 1 packet(s), Oral, BID, bid x 3 days then daily, # 30 EA, 0 Refill(s), Pharmacy: [id number], 1 packet(s) Oral BID,Instr:bid x 3 days ; then daily Start Date: 08/18/17 Status: Ordered Problem List Condition Confirmation Course Effective Dates Status Health St atus Informant Lymphoid leukemia 1 Confirmed Active 1stage II - 2004 Procedures Procedure Date Related Diagnosis Body Site Status arthroscopic knee surgery 1 Completed Bunionectomy 2 Completed 1right 2left Vital Signs Most recent to oldest [Reference Range]: 1 Peripheral Pulse Rate [60-100 bpm] 80 bp m (02/04/22 12:00 PM) Blood Pressure [90-140/60-90 mmHg] 134/7 6mmHg (02/04/22 12:00 PM) Weight 63.3 kg (02/04/22 12:00 PM) Weight Measured (lbs) 139.552 lb (02/04/22 12:00 PM) Social History Social History Type Response Smoking Status Former smoker, quit more than 30 days ago entered on: 01/12/17 Sex Oncology Note * TANYA SENIOR: PERFORM, SIGN, VERIFY Event Display: Oncology Note Authored Date: Patient: NAVEED FELIPE Age: 76 years Sex: Female : 1945 Associated Diagnoses: None Author: TANYA SENIOR [facility] MR#: [id number] Visit Information Emily Ferguson MD ONCOLOGY PROBLEM LIST: 1. Stage II chronic lymphocytic leukemia a. Diagnosed by flow cytometry February [address] scan 2. Hypertension 3. Anxiety/depression 4. Right sided acoustic neuroma a. Status post surgery 03/03/16 Chief Complaint CLL History of Present Illness Ms. Felipe was seen today in follow-up of her stage II chronic lymphocytic leukemia. Overall feeling well, no new symptoms. She denies any headaches, new area of bone pain, paresthesias, focal weakness, change in her breathing, cough, orthopnea, PND, abdominal pain, nausea or vomiting, loss of appetite, loss of weight, change in bowel habits, diarrhea, constipation, melena, bright red blood per rectum, easy bruising, bleeding, fevers, or night sweats. Review of Systems Otherwise negative Health Status Allergies: Allergic Reactions (All) Severity Not Documented Lisinopril- Cough. Sulfa drugs- Cough., Allergies (2) Active Severity Reaction lisinopril cough sulfa drugs Cough Current medications: (Selected) Prescriptions Prescribed FLUoxetine 40 mg oral capsule: See Instructions, TAKE 1 CAPSULE ONCE DAILY, 90 cap(s), 1 Refill(s) hydrochlorothiazide-losartan 25 mg-100 mg oral tablet: 1 tab(s), Oral, Daily, 90 tab(s), 1 Refill(s) potassium chloride 20 mEq oral powder for reconstitution: 1 packet(s), Oral, BID, bid x 3 days thendaily, 30 EA, 0 Refill(s) Documented Medications Documented amLODIPine 5 mg oral tablet: 5 mg = 1 tab(s), Oral, Daily, 0 Refill(s) multivitamin: Daily, 0 Refill(s), Home Medications (5) Active amLODIPine 5 mg oral tablet 5 mg = 1 tab(s), Oral, Daily FLUoxetine 40 mg oral capsule See Instructions hydrochlorothiazide-losartan 25 mg-100 mg oral tablet 1 tab(s), Oral, Daily multivitamin , Daily potassium chloride 20 mEq oral powder for reconstitution 1 packet(s), Oral, BID , No qualifying data available Problem list: All Problems (Selected) Anxiety / 35990528 Aortic stenosis / 3768868040 mild on echo 2012 Asthma / 704463546 mild, intermittent, precip by cold Depression / 3624666235 Elevated fasting glucose / 9736227312 Elevated liver function tests / 191514667 fatty infiltrate on U/S; neg Hep B and C, normal Fe studies, neg CANDY, neg anti- eugene Ab. 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 Sciatica (48104638): Resolved on 01/12/2017 at 71 years. Tendonitis (61353059): Resolved on 01/12/2017 at 71 years. Comments: 01/12/2017 EDT 12:30 EDT - Jessy Pizano Lt rotator cuff Physical Examination VS/Measurements Vital Signs 02/04/2022 12:00 EDT Peripheral Pulse Rate 80 bpm Systolic Blood Pressure 134 mmHg Diastolic Blood Pressure 76 mmHg , Measurements from flowsheet : Measurements 02/04/2022 12:00 EDT Weight 63.3 kg Weight Measured (lbs) 139.552 lb 76-year-old female in no apparent distress, alert and cooperative to exam. HEENT exam negative. Atraumatic, pupils equally round reactive to light, sclera nonicteric, throat clear. Neck supple without mass Chest clear without rales or rhonchi. Respiratory movements normal. Heart regular rate and rhythm with 1/6 to 2/6 systolic ejection murmur. Abdomen positive bowel sounds soft nontender without organomegaly Extremities no edema Lymph nodes negative Neuro without gross focal deficit Review / Management Lab data from [place] 01/24/2022: WBC 24.7, no differential, hemoglobin 12.8, platelet count 151,000 CMP unremarkable except for glucose of 116. BUN 22. Impression and Plan 1. STAGE II CHRONIC LYMPHOCYTIC LEUKEMIA. She continues to do well, again discussed the natural history of CLL and rationale for ongoing follow-up. At the current time no indications for therapy. CBCremains stable. She has not had a CLL prognostic panel IGH V mutation analysis, at the current timegiven her stability will monitor. Plan: A. Follow-up in 1 year. B. Several days prior at [facility]: CBC with differential, CMP, and LDH C. At time of concern regarding progression, will perform CLL prognostic panel and IGHV Tatian analysis. 2. SOCIAL. She is living in [facility], but the current time we will continue follow-up here. Again offered referral to closer to home, can change follow-up to closer to home as she desires. Currently wish to be seen here. All of her questions were answered. Voice recognition software used for dictation [Electronically Signed on: 02/04/2022 13:02 EDT] TANYA SENIOR MD [Verified on: 02/04/2022 13:02 EDT] TANYA SENIOR MD Patient Care team information Personnel Name: EMILY FERGUSON MD Address: Address: [address] [place] [address]
--- OUTSIDE RECORDS SUMMARY | 2023-10-16 15:18 | XMS_ITS | Encounter Summary ---
Author Organization [facility] [place] [address] Care Team Providers Care Label Maker Name Role Phone Keena Baca APRN Primary Care Provider [phone] Encounter Details Date Type Department Care Team (Late st Contact Info) Description 02/03/2023 11:00 AM EDT Office Visit Hematology and Oncology at [address] [phone] Tanya Gonsalez MD [address] [place] [address] HEMATOLOGY/[place] [address] Chronic lymphocytic leukemia Social History Tobacco Use Types Packs/Day Years [...] as of this encounter Progress Notes * Tanya Gonsalez MD - 02/03/2023 11:00 AM EDT See Media for scanned document. Patient seen at [facility]. 02/03/2023 TANYA GONSALEZ MD 11:09 AM documented in this encounter Plan of Treatment Not on file documented as of this encounter Visit Diagnoses Diagnosis Chronic lymphocytic leukemia Chronic lymphoid leukemia, without mention of having achieved remission documented in this encounter Care Teams Label Maker Relationship Specialty Start Date End Date Keena Baca, LUIS CARLOS [address] [facility] [place] [address] PCP - General Family Medicine 01/13/21 documented as of this encounter
--- OUTSIDE RECORDS SUMMARY | 2023-10-16 15:18 | XMS_ITS | Continuity of Care Document ---
Author Organization [facility] Address [address] [place] [address]- Care Team Providers Care Heddler Tier Name Role Phone EMILY FERGUSON Primary Care Physician Encounter BVT Date(s): 12/26/19 - 04/05/[address] [address]- Discharge Disposition: Other Attending Physician: TEGAN FERNANDO Admitting Physician: TEGAN FERNANDO Allergies, Adverse Reactions, Alerts Substance Reaction Severity Status lisinopril 1 cough Active sulfa drugs Cough Active 1Statused by Person: KIANNA FELDER([facility]) on [phone] Assessment and Plan Future Appointments Immunizations Given and Recorded Vaccine Date Status Refusal Reason pneumococcal (PCV13) 01/29/16 Recorded pneumococcal (PPSV23) 01/30/13 Recorded Medications Caltrate 600 + D oral tablet 1 tab(s), Oral, Daily, # 60 tab(s), 0 Refill(s) Start Date: 02/20/18 Status: Ordered FLUoxetine 40 mg oral capsule See Instructions, TAKE 1 CAPSULE ONCE DAILY, # 90 cap(s), Refill(s) 1, TAKE 1 CAPSULE ONCE DAILY Start Date: 05/29/17 Status: Ordered hydrochlorothiazide-losartan 25 mg-100 mg oral tablet 1 tab(s), Oral, Daily, # 90 tab(s), 1 Refill(s), Pharmacy: [facility], 1 tab(s) Oral Daily Start Date: 06/14/17 Status: Ordered multivitamin Daily, 0 Refill(s) Start Date: 02/20/18 Status: Ordered potassium chloride 20 mEq oral powder for reconstitution = 1 packet(s), Oral, BID, bid x 3 days then daily, # 30 EA, 0 Refill(s), Pharmacy: [id number], 1 packet(s) Oral BID,Instr:bid x 3 days ; then daily Start Date: 08/18/17 Status: Ordered Problem List Condition Effective Dates Status Health Status Inform ant Lymphoid leukemia(Confirmed) 1 Active 1stage II - 2003 Procedures Procedure Date Related Diagnosis Body Site Status arthroscopic knee surgery 1 Completed Bunionectomy 2 Completed 1right 2left Social History Social History Type Response Smoking Status Former smoker, quit more than 30 days ago entered on: 01/12/17 Sex
--- OUTSIDE RECORDS SUMMARY | 2023-10-16 15:18 | XMS_ITS | Continuity of Care Document ---
Author Organization [facility] Address [address] [place] [address]- Care Team Providers Care Access Analyst Name Role Phone EMILY FERGUSON Primary Care Physician [phone] Encounter BVT Date(s): 02/03/23 - 02/03/[address] [place], [place] [address] Encounter Diagnosis Chronic lymphatic leukemia(Discharge Diagnosis) - 02/03/23 Discharge Disposition: Home Attending Physician: TANYA SENIOR Admitting Physician: TANYA SENIOR Allergies, Adverse Reactions, Alerts Substance Reaction Severity Status lisinopril 1 cough Active sulfa drugs Cough Active 1Statused by Person: KIANNA FELDER([facility]) on [phone] Assessment and Plan Extracted from: Title:Visit Note * Author:TANYA SENIOR Date:02/03/23 History of Present Illness Ms. Felipe was seen today in follow-up of her stage II chronic lymphocytic leukemia. Overall feeling well, no new symptoms. She has intentionally lost weight. She denies any headaches, new area of [...] Problem list: All Problems (Selected) Anxiety / 33145981 Aortic stenosis / 2692539302 mild on echo 2012 Asthma / 634723752 mild, intermittent, precip by cold Depression / 1054774870 Elevated fasting glucose / 7114032085 Elevated liver function tests / 496553991 fatty infiltrate on U/S; neg Hep B and C, normal Fe studies, neg CANDY, neg anti- eugene Ab. w/u 2015 Hypertension / 6297233282 Lymphoid leukemia / 829370232 / Confirmed stage II - 2004 Schwannoma / 6419281380 vestibular Physical Examination VS/Measurements Vital Signs 02/03/2023 10:00 EDT Peripheral Pulse Rate 68 bpm Systolic Blood Pressure 124 mmHg Diastolic Blood Pressure 76 mmHg , Measurements from flowsheet : Measurements 02/03/2023 10:00 EDT Weight 60 kg Weight Measured (lbs) 132.277 lb 77-year-old female in no apparent distress, alert and [...] 1 year. B. Several days prior at [facility]: CBC with differential, CMP, and LDH C. At time of concern regarding progression, will perform CLL prognostic panel and IGHV Tatian analysis. 2. SOCIAL. She is living in [facility], but the current time we will [...] CAPSULE ONCE DAILY, # 90 cap(s), Refill(s) 1 Start Date: 05/29/17 Status: Ordered hydrochlorothiazide-losartan 25 mg-100 mg oral tablet = 1 tab(s), Oral, Daily, # 90 tab(s), 1 Refill(s), Pharmacy: [facility], 1 tab(s) Oral Daily Start Date: 06/14/17 Status: Ordered multivitamin Daily, 0 Refill(s) Start Date: 02/20/18 Status: Ordered potassium chloride 20 mEq oral powder for reconstitution = 1 packet(s), Oral, BID, bid x 3 days then daily, # 30 EA, 0 Refill(s), Pharmacy: [id number], 1 packet(s) Oral BID,Instr:bid x 3 days ; then daily Start Date: 08/18/17 Status: Ordered Problem List Condition Confirmation Course Effective Dates Status Health [facility] Informant Lymphoid leukemia 1 Confirmed Active 1stage II - 2003 Procedures Procedure Date Related Diagnosis Body Site Status arthroscopic knee surgery 1 Completed Bunionectomy 2 Completed 1right 2left Vital Signs Most recent to oldest [Reference Range]: 1 Peripheral Pulse Rate [60-100 bpm] 68 bp m (02/03/23 10:00 AM) Blood Pressure [90-140/60-90 mmHg] 124/7 6mmHg (02/03/23 10:00 AM) Weight 60 kg (02/03/23 10:00 AM) Weight Measured (lbs) 132.277 lb (02/03/23 10:00 AM) Social History Social History Type Response Smoking Status Former smoker, quit more than 30 days ago entered on: 01/12/17 Sex Female Oncology Note * TANYA SENIOR: PERFORM, SIGN, VERIFY Event Display: Oncology Note Authored Date: [id number] Patient: NAVEED FELIPE Age: 77 years Sex: Female : 1945 Associated Diagnoses: None Author: TANYA SENIOR [facility] MR#: [id number] Visit Information Emily Ferguson MD ONCOLOGY PROBLEM [...] Overall feeling well, no new symptoms. She has intentionally lost weight. She denies any headaches, new area of [...] Problem list: All Problems (Selected) Anxiety / 37543000 Aortic stenosis / 9876712235 mild on echo 2012 Asthma / 889752740 mild, intermittent, precip by cold Depression / 9094180134 Elevated fasting glucose / 0277984257 Elevated liver function tests / 015356503 fatty infiltrate on U/S; neg Hep B and C, normal Fe studies, neg CANDY, neg anti- eugene Ab. w/u 2015 Hypertension / 9122447342 Lymphoid leukemia / 510917936 / Confirmed stage II - 2004 Schwannoma / 7175946868 vestibular Histories Past Medical History: Resolved Golfers elbow (03999443): Resolved on 01/12/2017 at 71 years. Sciatica (05501783): Resolved on 01/12/2017 at 71 years. Tendonitis (12076781): Resolved on 01/12/2017 at 71 years. Comments: 01/12/2017 EDT 12:30 EDT - Jessy Pizano Lt rotator cuff Physical Examination VS/Measurements Vital Signs 02/03/2023 10:00 EDT Peripheral Pulse Rate 68 bpm Systolic Blood Pressure 124 mmHg Diastolic Blood Pressure 76 mmHg , Measurements from flowsheet : Measurements 02/03/2023 10:00 EDT Weight 60 kg Weight Measured (lbs) 132.277 lb 77-year-old female in no apparent distress, alert and [...] without gross focal deficit Review / Management Laboratory data from [facility] 01/20/2023: WBC 25.84, absolute lymphocyte count 19.38, hemoglobin 13.1, platelet count 126,000 CMP remarkable for potassium 3.4, glucose 133. Otherwise unremarkable. Impression and Plan 1. STAGE II CHRONIC [...] 1 year. B. Several days prior at [facility]: CBC with differential, CMP, and LDH C. At time of concern regarding progression, will perform CLL prognostic panel and IGHV Tatian analysis. 2. SOCIAL. She is living in [facility], but the current time we will continue follow-up here. Again offered referral to closer to home, can change follow-up to closer to home as she desires. Currently wish to be seen here. All of her questions were answered. Voice recognition software used for dictation [Electronically Signed on: 02/03/2023 11:09 EDT] TANYA SENIOR MD [Verified on: 02/03/2023 11:09 EDT] TANYA SENIOR MD Patient Care team information Care Team Personnel Name: EMILY FERGUSON MD Position: [facility] ED Physician LP Member Role: Primary Care Physician Address: Address: [address] [place] [address] Name: WILDER RAMIREZ Position: [facility] Physician Acute/Clinic/PNED Member Role: Nurse Practitioner Address: Address: [address] [place] [address]- Care Team Related Persons Name: KVNG FELIPE
--- OUTSIDE RECORDS SUMMARY | 2023-10-16 15:18 | XMS_ITS | Encounter Summary ---
Author Organization [facility] [place] [address] Care Team Providers Care Stripping Cutter And Winder Name Role Phone Keena Baca APRN Primary Care Provider [phone] Encounter Details Date Type Department Care Team (Late st Contact Info) Description 05/07/2021 Telephone Dermatology at [facility] [address] [place] [address] Patrick Cloud MD [facility] [place] [address] Social History Tobacco Use Types Packs/Day Years [...] on file documented as of this encounter Miscellaneous Notes * Telephone Encounter - Jojo Carney - 05/07/2021 4:45 PM EST Pt has a stitch removal next and wants to do it Wednesday 05/10 as she is going away on . Call her Monday am:: [phone] Jojo documented in this encounter Plan of Treatment Not on file documented as of this encounter Visit Diagnoses Not on filedocumented in this encounter Care Teams Stripping Cutter And Winder Relationship Specialty Start Date End Date Keena Baca, LUIS CARLOS [address] [place] [address] PCP - General Family Medicine 01/13/21 documented as of this encounter
--- OUTSIDE RECORDS SUMMARY | 2023-10-16 15:18 | XMS_ITS | Encounter Summary ---
Author Organization [facility] [place] [address] Care Team Providers Care Orchid Worker Name Role Phone Keena Baca APRN Primary Care Provider Encounter Details Date Type Department Care Team (Latest Contact Info) Description 02/03/2023 Travel Social History Tobacco Use Types Packs/Day Years [...] as of this encounter Plan of Treatment Not on file documented as of this encounter Visit Diagnoses Not on filedocumented in this encounter Care Teams Orchid Worker Relationship Specialty Start Date End Date Keena Baca APRN [address] [place] [address] PCP - General Family Medicine 01/13/21 documented as of this encounter
--- OUTSIDE RECORDS SUMMARY | 2023-10-16 15:18 | XMS_ITS | Encounter Summary ---
Author Organization [facility] [place] [address] Care Team Providers Care Personal Property Assessor Name Role Phone Keena Baca APRN Primary Care Provider Encounter Details Date Type Department Care Team (Latest Contact Info) Description 02/04/2022 Travel Social History Tobacco Use Types Packs/Day [...] on filedocumented in this encounter Care Teams Personal Property Assessor Relationship Specialty Start Date End Date Keena Baca APRN [address] [place] [address] PCP - General Family Medicine 01/13/21 documented as of this encounter
--- OUTSIDE RECORDS SUMMARY | 2023-10-16 15:18 | XMS_ITS | Encounter Summary ---
Author Organization [facility] [place] [address] Care Team Providers Care Office Cashier Name Role Phone Keena Baca APRN Primary Care Provider [phone] Encounter Details Date Type Department Care Team (Late st Contact Info) Description 04/08/2021 Orders Only Dermatology at [facility] [address] [place] [address] Yolanda Saldivar, RN Social History Tobacco Use Types Packs/Day Years [...] as of this encounter Progress Notes * Yolanda Saldivar, RN - 04/08/2021 3:25 PM EST Keflex 500 mg twice daily for 10 days sent to [facility] in [place], [place] per verbal order from Dr. Cloud. documented in this encounter Plan of Treatment Not on file documented as of this encounter Visit Diagnoses Not on filedocumented in this encounter Care Teams Office Cashier Relationship Specialty Start Date End Date Keena Baca APRN [address] [place] [address] [place] [address] PCP - General Family Medicine 01/13/21 documented as of this encounter
--- OUTSIDE RECORDS SUMMARY | 2023-10-16 15:18 | XMS_ITS | Encounter Summary ---
Author Organization [facility] [place] [address] Care Team Providers Care Bench Repair Technician Name Role Phone Keena Baca APRN Primary Care Provider [phone] Encounter Details Date Type Department Care Team (Late st Contact Info) Description 04/09/2021 Telephone Dermatology at [facility] [address] [facility] [place] [id number] Libertad Willis CMA Social History Tobacco Use Types Packs/Day Years [...] encounter Miscellaneous Notes * Telephone Encounter - Libertad Willis CMA - 04/09/2021 9:48 AM EST R/C to patient, patient concerned about wound, photo sent [facility]. Patient states, she startedantibiotics last night prescribed by Dr Cloud. Patient photo reviewed with Dr Cloud, Dr Brewerorecommendations, continue antibiotics, wash area with soap and water, apply ice and elevate. Keep follow up appointment (04/12/2021). Patient states understanding and has no other questions at this ti wa. documented in this encounter Plan of Treatment Not on file documented as of this encounter Visit Diagnoses Not on filedocumented in this encounter Care Teams Bench Repair Technician Relationship Specialty Start Date End Date Keena Baca, GUN CLUB MANAGER [address] [place] [address] PCP - General Family Medicine 01/13/21 documented as of this encounter
--- OUTSIDE RECORDS SUMMARY | 2023-10-16 15:18 | XMS_ITS | Encounter Summary ---
Author Organization [facility] [place] [address] Care Team Providers Care Floor Coverings Installer Name Role Phone Keena Baca APRN Primary Care Provider [phone] Encounter Details Date Type Department Care Team (Latest Contact Info) Description 05/13/2021 2:30 PM EST Clinical Support Dermatology at [facility] [address] [place] [address] Patrick Cloud MD [facility] [place] [address] Visit for wound check Social History Tobacco [...] Progress Notes * Patrick Cloud MD - 05/13/2021 2:30 PM EST Images from the original note were not included. Dermatologic Surgery Post-Operative Wound Check Patient: Latisha Felipe Today's Date: 05/13/2021 Date of : 1945 Chief complaint: [x] Wound check [] Suture removal History of Present Illness: Latisha Felipe is a 75 y.o. female presents today for status post Mohs micrographic surgery forsquamous cell carcinoma, well differentiated, with surgery date 04/05/2021, repaired by linear closure, located on the left dorsal hand. Wound dehiscence. Patient states she noticed a few underneath sutures sticking out of the skin. Examination: Focused examination performed of the surgical site. This reveals a well- healing wound, almost complete still has swelling and erythema. Crust was removed, good granulationtissue underneath noted.. Assessment: 1. Normal healing post-surgical site with infection almost resolved. Plan: 1. Crust removed, silver nitrate applied. Vaseline and bandage applied. 2. Continue to wash area and apply Mupirocin once daily until healed. 3. Follow up 1 month Note initiated by RAFAEL Mendes CMA has performed the documentation for this encounter in the presence of and acting as a scribe for Dr. Ai Carrasquillo performed the above scribed service and agree with the accuracy of the documentation in this encounter. Reviewed and signed by: Patrick Cloud Dermatology [facility] documented in this encounter Plan of Treatment Not on file documented as of this encounter Visit Diagnoses Diagnosis Visit for wound check Encounter for other specified aftercare documented in this encounter Care Teams Floor Coverings Installer Relationship Specialty Start Date End Date Keena Baca, LUIS CARLOS [address] [place] [address] PCP - General Family Medicine 01/13/21 documented as of this encounter
--- OUTSIDE RECORDS SUMMARY | 2023-10-16 15:18 | XMS_ITS | Encounter Summary ---
Author Organization [facility] [place] [address] Care Team Providers Care Heating And Ventilation Engineer Name Role Phone Keena Baca APRN Primary Care Provider [phone] Reason for Visit * Reason Comments Squamous Cell Carcinoma Encounter Details Date Type Department Care Team (Latest Contact Info) Description 04/05/2021 11:45 AM EST Clinical Support Dermatology at [facility] [address] [place] [address] Patrick Cloud MD [facility] [place] [address] SCC (squamous cell carcinoma), hand, left Social History Tobacco Use Types Packs/Day Years [...] of this encounter Progress Notes * Yolanda Saldivar RN - 04/05/2021 11:45 AM EST Mohs consultation and preoperative note (H&P) Patient Name: Latisha Felipe Age: 75 y.o. Date of : 1945 Today's Date: 04/05/2021 REFERRING PROVIDER: Ashley Yeager MD CC: Mohs micrographic surgery for treatment of a cutaneous tumor HPI: Latisha Felipe is a 75 y.o. 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 The dermatologic preoperative information sheet was reviewed with pertinent positive and negative as below. DERMATOLOGIC PRE-OPERATIVE EVALUATION AND REVIEW OF SYSTEMS History of Mohs surgery? no If yes, have you ever had Mohs surgery with Dr. Cloud? no Pacemaker/Defibrillator? no Joint replacement or other implantable devices (e.g. Cochlear implant)? If yes then when? no Do you take a blood thinner? No History of organ transplant? no History of artificial valve or stroke? no History of liver disease or bleeding disorder? no Do you have any medical problems that may affect your upcoming surgery? no Do you have any concerns regarding your upcoming surgery? yes - worried about pain from lidocaine SOCIAL HISTORY: Makes Own Decisions Yes Hearing aid or other devices: No Relevant travel history or future plans: [place] in two weeks, will be there for 4 days Tobacco use (amount per day, type of tobacco): no Do you have any physical limitations that may affect your surgery?: no ALLERGIES: Allergies reviewed MEDICATIONS: Medications reviewed documented in this encounter Plan of Treatment Not on file documented as of this encounter Visit Diagnoses Diagnosis SCC (squamous cell carcinoma), hand, left documented in this encounter Care Teams Heating And Ventilation Engineer Relationship Specialty Start Date End Date Keena Baca, LUIS CARLOS [address] [place] [address] PCP - General Family Medicine 01/13/21 documented as of this encounter
--- OUTSIDE RECORDS SUMMARY | 2023-10-16 15:18 | XMS_ITS | Encounter Summary ---
Author Organization [facility] [place] [address] Care Team Providers Care Health Care Facilities Inspector Name Role Phone Keena Baca APRN Primary Care Provider Encounter Details Date Type Department Care Team (Latest Contact Info) Description 01/30/2023 Travel Social History Tobacco Use Types Packs/Day [...] on filedocumented in this encounter Care Teams Health Care Facilities Inspector Relationship Specialty Start Date End Date Keena Baca APRN [address] [place] [address] PCP - General Family Medicine 01/13/21 documented as of this encounter
--- OUTSIDE RECORDS SUMMARY | 2023-10-16 15:18 | XMS_ITS | Continuity of Care Document ---
Author Organization [facility] Address [address] [place] [id number] Care Team Providers Care Newsstand Vendor Name Role Phone EMILY FERGUSON Alex Primary Care Physician Encounter [facility] Date(s): 05/22/19 - 10/18/[address] [address]- Discharge Disposition: Other Attending Physician: TEGAN FERNANDO Admitting Physician: TEGAN FERNANDO Allergies, Adverse Reactions, Alerts Substance Reaction Severity Status lisinopril 1 cough Active sulfa drugs Cough Active 1Statused by Person: KIANNA FELDER([facility]) on [phone] Assessment and Plan Future Appointments Immunizations Given [...] Daily, # 90 tab(s), 1 Refill(s), Pharmacy: [facility], 1 tab(s) Oral Daily Start Date: 06/14/17 Status: Ordered multivitamin Daily, 0 Refill(s) Start Date: 02/20/18 Status: Ordered potassium chloride 20 mEq oral powder for reconstitution = 1 packet(s), Oral, BID, bid x 3 days then daily, # 30 EA, 0 Refill(s), Pharmacy: [facility] [id number], 1 packet(s) Oral BID,Instr:bid x 3 days [...]
--- OUTSIDE RECORDS SUMMARY | 2023-10-16 15:18 | XMS_ITS | Encounter Summary ---
Author Organization [facility] Address [address] [place] [address] Care Team Providers Care Logistics Engineering Manager Name Role Phone Keven Keena WARREN Primary Care Provider [phone] Encounter Details Date Type Department Care Team (Late st Contact Info) Description 11/18/2020 Lab Requisition [facility] Pathology & Laboratory Medicine - [facility] [address] [place] [address] Ashanti Cano MD [address] [place] [id number] Encounter for other general examination Social History Tobacco Use Types Packs/Day Years Used Date Smoking Tobacco: Never Assessed Interpersonal Safety Answer Date Record ed Physically Hurt Never 03/13/2020 Verbally Threaten Not on file 03/13/2020 Sex and Gender Information Value Date Recorded Sex Assigned at Not on file Gender Identity Not on file Sexual Orientation Not on file documented as of this encounter Plan of Treatment Not on file documented as of this encounter Procedures Procedure Name Priority Date/Time Associated Diagnosis Comments SURGICAL PATHOLOGY Today 11/18/2020 10 :28 EDT Encounter for other general examination documented in this encounter Results * SURGICAL PATHOLOGY (11/18/2020 10:28 EDT) Note to Patient The following pathology results have been interpreted by your pathologist and may be available to you before your health provider has had the opportunity to review them. Please allow time for your provider to receive these results and explore management options, if applicable. 11/27/2020 7:57 [facility] Final Diagnosis A. SKIN OF LOWER EXTREMITY, RIGHT, EXCISION: - Basal cell carcinoma, nodular type with infiltrative growth pattern. See microscopic and comment. - Margins of excision negative. 11/27/2020 7:57 [facility] Diagnosis Comment The findings are those of basal cell carcinoma. The tumor showed staining with chromogranin which raised a neuroendocrine carcinoma as a consideration. However, the lack of synaptophysin staining and CK20 staining along with the morphologic findings of a peripheral palisade within basaloid islands, foci of retraction artifact, and mucinous stroma support the classification of basal cell carcinoma. Chromogranin expression has been reported in basal cell carcinoma. The lesion extends deep into the dermis where it approaches vascular structures. However, definitive intravascular tumor is not noted. Definitive perineural invasion is not identified. This case has been reviewed by Dr. Dayna Lin who concurs with the above diagnosis. 11/27/2020 7:57 [facility] Attestation By the signature below, the attending physician certifies that they have 1) personally conducted a gross and/or microscopic examination of the described specimen(s), and/or personally interpreted the results of laboratory testing of the described specimen(s), and 2) personally rendered or confirmed the above diagnosis. 11/27/2020 7:57 [facility] at 0757 Microscopic Description Irregularly shaped islands of atypical basal cells infiltrate the dermis. The basal cells have scant cytoplasm and round dark nuclei. Mitotic figures and apoptotic bodies are evident. The nuclei at the periphery of the islands have a palisaded arrangement. The islands are associated with a fibromyxoid stroma and there is cleft formation between some of the islands and stroma. Near the base, infiltrative islands are noted. CK20 (Ks20.8, Leica) is negative.Synaptophysi n (27G12, Leica) is negative.Chromogranin (LK2H10, [place]) show cytoplasmic positivity. Immunohistochemical stains are performed on block A4. Additional levels have been examined on block A4. NOTE: One or more of the reagents used in immunoperoxidase testing in this case may not have been cleared or approved by the U.S. Food and Drug Administration (FDA). The FDA has determined that such clearance or approval is not necessary. These tests are used for clinical purposes. They should not be regarded as investigational or for research. These reagents' performance characteristics have been determined by [facility] and/or by the referring laboratory. The positive and negative controls worked appropriately. If immunoperoxidase staining has been performed on alcohol fixed cytology specimens, which has not been fully validated, the assays should be interpreted with caution and correlated with clinical data. This laboratory is certified under the Clinical Laboratory Improvement Amendments of 1988 (CLIA-88) as qualified to perform high complexity clinical laboratory testing.? 11/27/2020 7:57 EDT [facility] Clinical History Skin lesion RLE; suture anterior 11/27/2020 7:57 EDT [facility] Gross Description A. Received in formalin labelled with proper patient identification (initials E, K) and skin lesion RLE suture anterior is an oriented ovoid skin excision, 2.7 x 2.5 cm and excised to a depth of 0.8 cm. The majority of the skin surface shows an encrusted ulcerated lesion, 2.2 cm in greatest dimension. The margins are inked with blue representing distal and black representing proximal. The specimen is serially sectioned from anterior to posterior and entirely submitted as follows: BLOCK CANO A1- anterior tip, reverse en face A2-A7- 6 central sections A8- posterior tip, reverse en face SESAR PAREDES([facility]) 11/19/2020 10:20 11/27/2020 7:57 EDT [facility] Performing Lab [facility] 11/27/2020 7:57 EDT [facility] Scanned Images 11/27/2020 7:57 EDT [facility] Tissue TISSUE SPECIMEN FROM SKIN / Unknown 11/18/2020 10:28 EDT 11/18/2020 15:58 EDT Ashanti Cano MD PATHOLOGY ORDERA ARAMIS [facility] [address] [place] [address] documented in this encounter Visit Diagnoses Diagnosis Encounter for other general examination documented in this encounter Care Teams Logistics Engineering Manager Relationship Specialty Start Date End Date Keena Baca NP [address] [facility] [place] [address] PCP - General 11/01/20 documented as of this encounter
--- OUTSIDE RECORDS SUMMARY | 2023-10-16 15:18 | XMS_ITS | Encounter Summary ---
Author Organization [facility] [place] [address] Care Team Providers Care Environmental Services Aide Name Role Phone Keena Baca APRN Primary Care Provider Encounter Details Date Type Department Care Team (Latest Contact Info) Description 11/14/2022 Travel Social History Tobacco Use Types Packs/Day [...] on filedocumented in this encounter Care Teams Environmental Services Aide Relationship Specialty Start Date End Date Keena Baca APRN [address] [place] [address] PCP - General Family Medicine 01/13/21 documented as of this encounter
--- OUTSIDE RECORDS SUMMARY | 2023-10-16 15:18 | XMS_ITS | Encounter Summary ---
Author Organization [facility] [place] [address] Care Team Providers Care Hide Or Skin Buffer Name Role Phone Keena Baca APRN Primary Care Provider [phone] Reason for Visit * Reason Comments Squamous Cell Carcinoma * Consultation (Routine) - Closed Specialty Diagnoses / Procedures Referred By Nancy mendez Referred To Contact Dermatology Diagnoses Squamous cell carcinoma of hand, unspecified laterality Ashley Yeager MD [facility] [address] [place] [address] [facility] [address] [place] [address] Referral ID Status Reason Start Date Expiration Date V isits Requested Visits Authorized [id number] Closed Consult, Test & Treat 01/22/2021 01/22/2022 1 1 Encounter Details Date Type Department Care Team (Latest Contact Info) Description 04/05/2021 12:00 PM EST Procedure visit Dermatology at [facility] [address] [place] [address] Patrick Cloud MD [facility] [address] [place] [address] SCC (squamous cell carcinoma), hand, left Social [...] on file documented as of this encounter Last Filed Vital Signs Vital Sign Reading Time Taken Comments Blood Pressure 140/61 04/05/2021 12:04 PM EST Pulse 73 04/05/2021 12:04 PM EST Temperature - - Respiratory Rate - - Oxygen Saturation - - Inhaled Oxygen Concentration - - Weight - - Height - - Body Mass Index - - documented in this encounter Progress Notes * Patrick Cloud MD - 04/05/2021 12:00 PM EST Images from the original note were not included. Summary of Procedure(s): Site: left dorsal hand Tumor Type: invasive Squamous Cell Carcinoma, well differentiated Stages to clear tumor: 2 Repair: linear closure Images: The patient was asked to call with any issues and is aware that I am available 24/10 should questions arise. Patrick Cloud MD Mohs Micrographic Surgery and Dermatologic Oncology Department of Dermatology Please note that I have reviewed the preoperative checklist from today's nursing visit including relevant social history and medications. I have reviewed the preoperative photos if available and the biopsy report. VITAL SIGNS: BP 140/61 (BP Location (NBP): Left arm, Patient Position: Sitting, BP Cuff Sizes: Adult (25-34 cm)) Pulse 73 PHYSICAL EXAMINATION: General: patient is awake, alert, oriented and in no acute distress. Skin: Focused examination of surgical site(s) performed which shows a well healed biopsy site. PHYSICIAN REVIEW OF REPORTS, RECORDS, IMAGES: 1) The accompanying pathology report(s) associated with aforementioned biopsy slide(s) were/was also reviewed. Assessment: Latisha Felipe is a 75 y.o. female presenting for: 1. 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 Plan: 1. Findings from the biopsy report, today's clinical exam, and other pertinent details were reviewed with patient today. All questions were answered. 2. Discussed treatment options based on the above findings. We recommended Mohs micrographic surgery for treatment of this tumor. Mohs micrographic surgery was indicated due to patient, site and/or tumor characteristics (see operative report for specific indication). 3. We discussed risks, benefits, and alternative treatment options to the Mohs micrographic surgeryprocedure and pertinent information including but not limited to the following: ?? Risks include bleeding, infection, scar, recurrence, incomplete tumor removal or inability to cure with surgery alone if the tumor features are more aggressive than the initial pathology indicates. Occasionally, additional adjuvant treatments may be recommended. Additional risks include large wound, prolonged wound and healing, pain, swelling, bruising, increased appearance of vessels or worsening erythema of baseline skin; more rarely risks include damage to underlying structures such as nerves, cartilage, or muscle which could lead to temporary or permanent loss of sensation or motor function. ?? Benefit is precise tumor removal ?? If reconstruction is performed, it is specific to the patient and defect. ?? Discussed that the shape, size, depth of the wound is often not known until the tumor is clearedand thus the reconstruction options are sometimes not known until after tumor clearance. Occasionally, referrals to other providers may be recommended for reconstruction based on patient preference and need. ?? Reviewed the pros and cons of common reconstructions used for this tumor type, size, and location, and that reconstruction may lead to change in appearance. ?? Natural history of scar was discussed, including that the scar will continue to mature for 1-2 years. Recommended avoidance of special ointments or scar creams, and avoidance of direct sun exposure to the scar for optimal recovery. ?? Reviewed that there are some aspects of cosmesis that are dependent on patient's characteristicssuch as age, skin laxity/texture factors, inflammatory skin diseases such as rosacea, prior surgery/radiation, degree of actinic damage, smoking status, strength of the patient's immune system, diligent wound care, medications, and genetics. ?? Having Mohs surgery may lead to physical limitations for optimal healing, such as restricted physical activity and heavy lifting. 4. The nature of sun-induced photo-aging and skin cancers was discussed. Recommended sun avoidance when possible, especially peak hours of sun 10 am to 2pm, protective clothing such as wide-brimmed hats and long-sleeved clothing, and the use of SPF broad-spectrum sunscreen SPF 50 or higher. 5. Signs and symptoms of skin cancer reviewed. Patient to report any new, changing, or symptomatic lesions and follow up with his or her academic affairs specialist or other skin provider. 6. Discussed avoiding direct sun exposure to scars for best cosmetic result. Note initiated by EBONIE Kearney RN has performed the documentation for this encounter in the presence of and acting as a scribe for Dr. Cloud. I performed the above scribed service and agree with the accuracy of the documentation in this encounter. Reviewed and signed by: Patrick Cloud MD Dermatology [facility] * Patrick Cloud MD - 04/05/2021 12:00 PM EST Mohs micrographic Surgery Operative Report Patient name: Latisha Felipe : 1945 Date: 04/05/2021 Staff Surgeon: Patrick Cloud MD Nursing/Power Generation Equipment Repairer(s): Yolanda Saldivar RN House Steward/Stewardess (s): Sofi Goode Pre-operative diagnosis: Squamous Cell Carcinoma, well-differentiated Post-operative diagnosis: Squamous Cell Carcinoma, well-differentiated Location/Site: left dorsal hand Procedure: Mohs micrographic surgery Indication(s) for Mohs micrographic surgery: Anatomic location for tissue conservation Stages: 2 Preoperative size of tumor: 2.0 x 1.0 cm Stage I The nature and purpose of the procedure, associated risks, possible consequences and complications,and alternative forms of treatment were explained in detail. We reviewed the possible repairs basedon the clinical appearance of tumor but discussed that often the repair options may not be known until the tumor has ivan extirpated. Informed consent and permission to take photographs were obtained. The site was confirmed with the patient/authorized treasury representative/referring physician and/or a photograph form time of biopsy. A pre-operative time-out (procedural pause) was conducted with no unresolved discrepancies noted. Local anesthesia was obtained with 1% lidocaine with 1:100,000 epinephrine. The surgical site was prepped and draped in the usual sterile manner. With all visible gross tumor completely excised, the borders of the tumor and 2- 3 mm margins were excised as a complete layer. Hemostasis was achieved by electrocoagulation. The excised tissue was oriented and divided into 2 sections, chromacoded, and submitted for frozen sections. The patient tolerated the procedure well and without complications. On microscopic evaluation of the frozen sections, residual tumor was identified as squamous cell carcinoma, well-differentiated, on section 1 and 2. Stage II The surgical site was re-anesthetized with 1% lidocaine with 1:100,000 epinephrine, re-prepped and redraped in a sterile manner. The residual tumor was re-excised as a complete layer 2-3mm in thickness using the Mohs map to delineate area of residual tumor. Hemostasis was achieved with electrocoagul ation. The tissue was oriented and divided into 2 sections, chromacoded, and submitted for frozen sections. The patient tolerated the procedure well and without complications. On microscopic evaluation of the frozen sections, no residual tumor was identified on the deep or outer border of the sections. Depth of excision subcutaneous tissue Final defect size: 3.1 x 2.3 cm Patrick Cloud MD Mohs Micrographic Surgery and Dermatologic Oncology Department of Dermatology [address] [place] [address] Repair Operative Report Clinical Diagnosis: 3.1 x 2.3 cm surgical defect secondary to Mohs microscopically controlled excision Location/Site: Left Dorsal Hand Indication: repair of wound for anatomic/functional protestant Procedure: Intermediate linear closure of Mohs defect Ghost Writer: Yolanda Saldivar RN Due to the size and location of the defect resulting from the complete removal of the tumor, the postoperative risk of hemorrhage, infection, and the possibility of serious deformity from scarring, and in order to restore proper function and prevent loss of function, the defect was closed in the following manner. The nature and purpose of the procedure, associated risks, possible consequences, complications andalternative methods of treatment were explained to the patient in detail. An informed consent was obtained. The operative site was anesthetized with 1% lidocaine with 1:100,000 epinephrine. The site was prepped and draped in the usual sterile manner. Moderate undermining of the surrounding tissue was performed for tension free closure as necessary and redundant tissue excised. The deep tissues were apposed and sutured with 4-0 Monocryl sutures and the epidermal edges were approximated with 4-0 Plain Gut running and/or interrupted sutures. The resulting intermediate linear closure measured 6.6cm. The surgical site was cleaned and white petrolatum with a pressure dressing was applied. The patient tolerated the procedure well and without complications and was given both verbal and written instruction on postoperative wound care. Follow up as needed. The patient was discharged in good condition. Total local anesthesia with 1% lidocaine with 1:100,000 epinephrine used: 2.5 cc Total local with 0.25% bupivacaine used: 0.0 cc Patrick Cloud MD Mohs Micrographic Surgery and Dermatologic Oncology Department of Dermatology [address] [place] [address] Note initiated by Yolanda Saldivar, RN Yolanda Saldivar, EBONIE has performed the documentation for this encounter in the presence of and acting as a scribe for Dr. Cloud I performed the above scribed service and agree with the accuracy of the documentation in this encounter. Reviewed and signed by: Patrick Cloud MD Dermatology [facility] documented in this encounter Plan of Treatment Scheduled Referrals Name Type Priority Associated Diagnoses Orde r Schedule Referral to Dermatology Outpatient Referral Routine Squamous cell carcinoma of hand, unspecified laterality Ordered: 01/22/2021 documented as of this encounter Visit Diagnoses Diagnosis SCC (squamous cell carcinoma), hand, left documented in this encounter Care Teams Hide Or Skin Buffer Relationship Specialty Start Date End Date Keena Baca, LUIS CARLOS [address] [place] [address] PCP - General Family Medicine 01/13/21 documented as of this encounter
--- OUTSIDE RECORDS SUMMARY | 2023-10-16 15:18 | XMS_ITS | Continuity of Care Document ---
Author Organization [facility] Address [address] [place] [id number] Encounter [facility] FIN NBR [id number] Date(s): 08/16/23 - 08/16/23 [facility] [address] [place] [address]-
--- OUTSIDE RECORDS SUMMARY | 2023-10-16 15:18 | XMS_ITS | Encounter Summary ---
Author Organization [facility] [place] [address] Care Team Providers Care Clinical Liaison Name Role Phone Keena Baca APRN Primary Care Provider Encounter Details Date Type Department Care Team (Late st Contact Info) Description 04/26/2021 Orders Only Dermatology at [address] [place] [address] Yolanda Saldivar, RN Social History Tobacco Use [...] on filedocumented in this encounter Care Teams Clinical Liaison Relationship Specialty Start Date End Date Keena Baca APRN [address] [place] [address] PCP - General Family Medicine 01/13/21 documented as of this encounter
--- OUTSIDE RECORDS SUMMARY | 2023-10-16 15:18 | XMS_ITS | Encounter Summary ---
Author Organization [facility] [place] [address] Care Team Providers Care Tip Stretcher Name Role Phone Keena Baca APRN Primary Care Provider [phone] Reason for Visit * Reason Comments Skin Check Encounter Details Date Type Department Care Team (Late st Contact Info) Description 11/15/2022 1:20 PM EDT Office Visit Dermatology at [address] [phone] Sofi Vines MD [facility] [place] [address] History of nonmelanoma skin cancer; Actinic keratoses; Seborrheic keratoses; Canchola angioma; Congenital nevus; Multiple benign melanocytic nevi of upper and lower extremities and trunk; Dermal nevus of other site; 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 DEPARTMENT OF DERMATOLOGY Medical Dermatology Clinic Provider: Sofi Vines MD Patient's preferred name Brenda Preferred contact method for results [x]Phone [x]myD-H []Letter Detailed phone message OK? Yes Are there any other people with whom we may discuss your care? Yes - Alaina Meade (Son) Past Medical History Date, location, treatment Melanoma No Dysplastic nevi No SCC 01/13/2021: Left dorsal hand, Well differentiated iSCC, present at the peripheral and deep specimen edge, BCC 11/18/2020: Right lower extremity, Nodular and infiltrative BCC, s/p excision w/negative margins AKs No UV Exposure & Protection No Other relevant past medical history Acoustic neuroma Family History Details Melanoma No NMSC No Other relevant family history No Social History Occupation: Retired Hobbies: Other: Pre-Procedure Screening Details Allergy to lidocaine, epinephrine, Dermabond, chlorhexidine, or adhesives Tegaderm with silver Bleeding disorder or blood thinners No Implanted devices (Pacemaker, defibrillator, deep brain stimulator, cochlear implant) No History of Present Illness: Latisha Felipe is a 77 y.o. Patient returns to clinic today for a full skin exam with the following concerns: - She denies any changing, tender, or bleeding lesions. - Latisha reports that she doesn't get thirsty very often, but has wondered if her skin texture would benefit if she drank more water. Last visit at Dermatology: 01/13/2021 Last visit with this provider: 01/13/2021 Medications: Reviewed in eD-H Allergies: Reviewed in eD-H Skin Examination: Full skin examination: Patient asked to undress to their comfort level. Verbalized that the provider???s preference is that the patient remove all clothing and that the provider will not examine areas patient elects to keep covered. Patient elects to keep underwear on and have the following examined: scalp, hair, face, ears, neck, chest, axillae, abdomen, back, and upper and lower extremities. Genitalia and buttocks were not examined. Assessment/Plan 1. History of Non-Melanoma Skin Cancer - Well healed scars as per history above. - NER; will continue to clinically monitor. 2. Actinic Keratoses - Ill-defined, gritty papules on the right cheek (x1), nasal root (x1), nasal supratip (x1), left superior forehead (x1), right superior forehead (x1), left medial cheek (x1), right dorsal hand (x2). - Explained etiology, natural history and premalignant potential of these lesions. - Patient opted to proceed with liquid nitrogen. - Patient should return to return to clinic for re-evaluation if lesions does not resolve with thistreatment. - F/u in 2-3 months, Procedure: Destruction of lesions with cryotherapy. Locations: As noted above Number: 8 Discussed procedure and expectations including risks and benefits. Verbal consent obtained. Treatedwith LN2. There were no complications. Patient tolerated the procedure well. Post-procedure expectations and wound care were reviewed. 3. Seborrheic Keratoses - Stuck on, waxy papules on the face, trunk, and extremities. - Benign. No treatment needed. 4. Clinical SCCis vs sBCC - On the right shoulder is a 1.2 cm x 1 cm pink scaly thin plaque. - Joint decision to treat empirically with cryotherapy today. Patient was instructed to return to clinic if lesion does not resolve. - Will f/u in 2-3 months Procedure: Destruction of lesion with cryotherapy. Location: As noted above Number: 1 Post size: 1.2 cm Discussed procedure and expectations including risks and benefits. Verbal consent obtained. Treatedwith LN2. There were no complications. Patient tolerated the procedure well. Post-procedure expectations and wound care were reviewed. 5. 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 - Benign. No treatment needed. 6. Congenital Nevus - Medium-brown, evenly pigmented, hair-bearing plaque on the right hip. - Discussed benign nature of lesion and provided reassurance. No treatment necessary at this time. 7. Benign Nevi - Scattered light to medium brown macules on the trunk and extremities with reassuring pigment pattern on dermoscopy. - Reassured of benign appearance on exam today. - Advised patient to watch for any new or changing lesions. - Reviewed warning signs of skin cancer. 8. Dermal Nevus - [place], fleshy papule on the left upper back. - Discussed benign nature of lesion and provided reassurance. No treatment necessary at this time. Other: N/A RTC: 2 months for AK/clinical SCCis f/u and 1 year for FSE []Note routed to junior legal secretary [x]Recall placed in scheduling system [x]Appointment scheduled at checkout Scribe attestation: HARIKA Bah has performed the documentation for this encounter in the presence of and acting as a scribe for Sofi Vines MD. I performed the above scribed service and agree with the accuracy of the documentation in this encounter. Reviewed and signed by: Sofi Vines MD Dermatology [facility] Patient seen and evaluated with staff cut off worker: Jarad Cueva MD Dermatology [facility] * Jarad Cueva MD - 11/15/2022 1:20 PM EDT I directly supervised Dr. Vines during this office visit. Dr. Vines presented the history and physical exam to me. I, then, saw and examined this patient with Dr. Vines . We reviewed the history and pertinentdetails and I confirmed the physical findings. I agree with the details of the history and physicalexam as documented in Dr. Vines's note. 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
--- OUTSIDE RECORDS SUMMARY | 2023-10-16 15:18 | XMS_ITS | Clinical Summary ---
Author Organization [facility] Address [facility] [place] [address] Care Team Providers Care Editing Internship Name Role Phone Keena Baca APRN Primary Care Provider [phone] Allergies Active Allergy Reactions Criticality Noted Date Comments Sulfa (Sulfonamide Antibiotics) Rash 10/13/2015 HIGH FEVER Silver Medium 01/13/2021 Skin became flaming red Medications Medication Sig Dispensed Refills Start Date End Date Status FLUoxetine (PROZAC) 20 mg Tablet Take 40 mg by mouth daily. Active losartan-hydrochlorot hiazide (HYZAAR) 100-25 mg Tablet Take 0.5 tablets by mouth daily. Reported on 04/07/2016 Active KRILL OIL ORAL Take by mouth daily. Active FOLIC ACID/MULTIVIT-MIN/LUT EIN (CENTRUM SILVER ORAL) Take by mouth daily. Active albuterol (PROVENTIL HFA;VENTOLIN HFA;PROAIR) 90 mcg/actuation HFA Aerosol Inhaler Inhale 2 puffs into the lungs every 4 hours as needed for Wheezing. Use with spacer Active ibuprofen (ADVIL) 200 mg Tablet Take 400-600 mg by mouth as needed for Pain. Active potassium chloride ER (K-Dur/Klor-Con) 10 mEq Tablet Sustained Release Take 10 mEq by mouth daily. Active mupirocin (Bactroban) 2 % Ointment Apply topically 2 times daily. 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 Brain mass 10/01/2015 Right facial numbness 09/10/2015 Essential hypertension 02/16/2013 Social History Tobacco Use Types Packs/Day Years Used Date Smoking Tobacco: Former Cigarettes 0.5 15 0 07/06/1974 - 07/06/1989 Smokeless Tobacco: Never Alcohol Use Standard Drinks/Week Comments No 0 (1 standard drink = 0.6 oz pur e alcohol) Sex and Gender Information Value Date Recorded Sex Assigned at Not on file Gender Identity Not on file Sexual Orientation Not on file Last Filed Vital Signs Vital Sign Reading Time Taken Comments Blood Pressure 140/61 04/05/2021 12:04 PM EST Pulse 73 04/05/2021 12:04 PM EST Temperature 36.3 ??C (97.3 ??F) 03/23/2016 4:02 PM ES T Respiratory Rate 18 03/23/2016 4:02 PM EST Oxygen Saturation 96% 03/23/2016 4:02 PM EST Inhaled Oxygen Concentration - - Weight 61.7 kg (136 lb) 08/11/2017 10:46 AM EDT Height 162.6 cm (5' 4) 08/11/2017 10:46 AM EDT Body Mass Index 23.34 08/11/2017 10:46 AM EDT Plan of Treatment Health Maintenance Due Date Last Done Comments Pneumoccocal Vaccine: 65+ (1 of 2 - PCV) 1950 Hepatitis C Screening 1962 Tdap adult 10/04/1963 Tetanus vaccine 10/04/1963 Zoster vaccine (1 of 2) 10/04/1963 Advance Directive 10/04/1999 Bone Density Scan 2009 Covid-19 Vaccine ( - 2022-24 season) 2022 Influenza (Flu) vaccine (1 o f 1 - Influenza standard series) 12/03/2023 Medical Devices Implanted Type Area Percussion Instrument Tuner Device Identifier Shelf Expiration Date Model / Serial / Lot Barrier,Dura gen,Plus,4 ([id number]) - [id number] Implanted:Qt y: 1 on 03/03/2016 by Norman Aguilera MD at [facility] Right: Brain DO NOT USE [employer], - [id number] 08/31/2018 [id number] / / [id number] Screw,Un3,Ne w,Hd,Sd,1.5x 4mm ([id number]) - [id number] Implanted:Qt y: 6 on 03/03/2016 by Norman Aguilera MD at [facility] Right: Cranial ABDI CRANIOMAXXILLOFACIAL - [id number] / / Plate,Un3,2h ([id number]) - [id number] Implanted:Qt y: 1 on 03/03/2016 by Norman Aguilera MD at [facility] Right: Cranial DO NOT USE Verient - [id number] / / Cover,Un3,Bu rhl,W/Tab,20 mm ([id number]) - [id number] Implanted:Qt y: 1 on 03/03/2016 by Iván Chaves MD at [facility] Right: Cranial DO NOT USE Verient - [id number] / / Explanted Type Area Percussion Instrument Tuner Device Identifier Shelf Expiration Date Model / Serial / Lot Sheeting,Silic one,Reinforced ,3 ([id number]) - [id number] Explanted:Qty: 1 on 03/03/2016 at [facility] - [id number] / / Advance Directives * Full Code (Latest Code Status on File) Date Activated Date Inactivated Comments 03/14/2016 11:39 PM 03/23/2016 8:25 PM Question Answer Comments Does patient have capacity to make decision: Yes * Full Code Date Activated Date Inactivated Comments 03/03/2016 3:05 PM 03/06/2016 5:34 PM Question Answer Comments Does patient have capacity to make decision: Yes * Full Code Date Activated Date Inactivated Comments 03/03/2016 2:39 PM 03/03/2016 3:05 PM Question Answer Comments Does patient have capacity to make decision: Yes * Full Code Date Activated Date Inactivated Comments 02/09/2016 3:46 PM 02/09/2016 7:58 PM Question Answer Comments Does patient have capacity to make decision: Yes Care Teams Editing Internship Relationship Specialty Start Date End Date Keena Baca, LUIS CARLOS [address] [place] [address] PCP - General Family Medicine 01/13/21
--- OUTSIDE RECORDS SUMMARY | 2023-10-16 15:18 | XMS_ITS | Continuity of Care Document ---
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(Final) - Discharge Disposition: Home Attending Physician: TANYA GONSALEZ Admitting Physician: TANYA GONSALEZ Allergies, Adverse Reactions, Alerts Substance Reaction Severity Status lisinopril 1 cough Active sulfa drugs Cough Active 1Statused by Person: KIANNA FELDER([facility]) on [phone] Assessment and Plan Future Appointments Immunizations Given [...] daily, # 30 EA, 0 Refill(s), Pharmacy: [id number], 1 packet(s) Oral BID,Instr:bid x 3 days [...] Range]: 1 Peripheral Pulse Rate [60-100 bpm] 76 bp m (02/18/20 8:00 AM) Blood Pressure [90-140/60-90 mmHg] 138/8 2mmHg (02/18/20 8:00 AM) Weight Dosing 63.6 kg (02/18/20 8:00 AM) Weight Dosing (lbs) 139.92 lb (02/18/20 8:00 AM) Social History Social History Type Response Smoking Status Former smoker, quit more than 30 days ago entered on: 01/12/17 Sex
--- OUTSIDE RECORDS SUMMARY | 2023-10-16 15:18 | XMS_ITS | Continuity of Care Document ---
Author Organization [facility] Address [address] [place] [address]- Care Team Providers Care Psychological Operations Officer Name Role Phone EMILY FERGUSON Primary Care Physician Encounter [facility] [id number] Date(s): 02/19/19 - 02/19/[address] [place] [address]- Discharge Disposition: Home or Self Care Attending Physician: TANYA GONSALEZ Admitting Physician: TANYA GONSALEZ Allergies, Adverse Reactions, Alerts Substance Reaction Severity Status lisinopril 1 cough Active sulfa drugs Cough Active 1Statused by Person: KIANNA FELDER([facility]) on [phone] Assessment and Plan Future Appointments Immunizations Given [...] daily, # 30 EA, 0 Refill(s), Pharmacy: [facility] [id number], 1 packet(s) Oral BID,Instr:bid x 3 days ; then daily Start Date: 08/18/17 Status: Ordered Problem List Condition Effective Dates Status Health Status Inform ant Lymphoid leukemia(Confirmed) 1 Active 1stage II - 2004 Procedures Procedure Date Related Diagnosis Body Site Status arthroscopic knee surgery 1 Completed Bunionectomy 2 Completed 1right 2left Vital Signs Most recent to oldest [Reference Range]: 1 Peripheral Pulse Rate [60-100 bpm] 68 bp m (02/19/19 8:00 AM) Blood Pressure [90-140/60-90 mmHg] 134/7 8mmHg (02/19/19 8:00 AM) Weight Dosing 64.3 kg (02/19/19 8:00 AM) Weight Dosing (lbs) 141.46 lb (02/19/19 8:00 AM) Social History Social History Type Response Smoking Status Former smoker, quit more than 30 days ago entered on: 01/12/17 Sex
--- OUTSIDE RECORDS SUMMARY | 2023-10-16 15:18 | XMS_ITS | Encounter Summary ---
Author Organization [facility] [place] [address] Care Team Providers Care Electroencephalograph Technician Name Role Phone Keena Baca APRN Primary Care Provider [phone] Reason for Visit * Reason Comments Wound Check Encounter Details Date Type Department Care Team (Late st Contact Info) Description 04/20/2021 12:00 PM EST Office Visit Dermatology at [address] [phone] Patrick Cloud MD [facility] [place] [address] Visit for wound check Social History Tobacco [...] of this encounter Progress Notes * Patrick Clodu MD - 04/20/2021 12:00 PM EST Images from the original note were not included. Chief complaint: [x] Wound check History of Present Illness: Latisha Felipe is a 75 y.o. is status post Mohs surgery for: Type of tumor: Squamous Cell Carcinoma, well-differentiated Located on the: Left Dorsal Hand Surgery date: 1/3/22 The defect was repaired by: intermediate linear closure Today, the patient reports she feels it looks a little better. The flaming redness is starting toimprove. She currently is cleaning the wound twice daily by letting the shower water run over it and using Hibiclens. She will gently use sterile gauze to try to remove the yellow areas. Then she dries the area, applies Mupirocin ointment, covers with a nonstick pad and wraps with coban. She developed a yeast infection from the course of Keflex which she is currently treating with Monistat. Examination: Focused examination performed of the surgical site. See photograph below Assessment: 1. The wound still has limited granulation tissue, but surrounding swelling has diminished. The wound is slowly progressing to heal. Plan: 1. Continue to cleanse the wound daily by letting the shower water run over the wound. 2. Advised to not remove the yellow areas. 3. Ok to moisturize the dry areas of the hand around the wound. 4. Continue to apply Vaseline or Mupirocin ointment to the would daily until healed. Follow up in 2-3 weeks. Appointment scheduled upon exiting. Note initiated by HARIKA Seo CCMA has performed the documentation for this encounter in the presence of and acting as a scribe for Dr. Cloud I performed the above scribed service and agree with the accuracy of the documentation in this encounter. Reviewed and signed by: Patrick Cloud Dermatology [facility] Patrick Cloud MD Mohs Micrographic Surgery and Dermatologic Oncology Department of Dermatology [address] [place] [address] documented in this encounter Plan of Treatment Not on file documented as of this encounter Visit Diagnoses Diagnosis Visit for wound check Encounter for other specified aftercare documented in this encounter Care Teams Electroencephalograph Technician Relationship Specialty Start Date End Date Keena Baca, LUIS CARLOS [address] [place] [address] PCP - General Family Medicine 01/13/21 documented as of this encounter
--- OUTSIDE RECORDS SUMMARY | 2023-10-16 15:18 | XMS_ITS | Encounter Summary ---
Author Organization [facility] [place] [address] Care Team Providers Care Archivist Political History Name Role Phone Keena Baca APRN Primary Care Provider [phone] Encounter Details Date Type Department Care Team (Late st Contact Info) Description 04/08/2021 Telephone Dermatology at [facility] [address] [place] [phone] Yolanda Saldivar, RN Social History Tobacco Use [...] encounter Miscellaneous Notes * Telephone Encounter - Yolanda Saldivar RN - 04/08/2021 5:41 PM EST Returned Latisha's call regarding a possible infection of her surgical site. She reports that her incision on her left hand is painful, swollen, red in one area, and she is unable to bend her fingers due to the swelling. She sent us a photo of her hand. I offered the patient to come in today to [facility], but she is unable to because she lives over an hour away. An appointment for a wound check was scheduled for April 12 at 3:00pm. After discussing with Dr. Cloud, patient was ordered Keflex 500 mg BID for 10 days. This was sent to her pharmacy at [facility] in [place], [place]. documented in this encounter Plan of Treatment Not on file documented as of this encounter Visit Diagnoses Not on filedocumented in this encounter Care Teams Archivist Political History Relationship Specialty Start Date End Date Keena Baca, LUIS CARLOS [address] [place] [address] PCP - General Family Medicine 01/13/21 documented as of this encounter
--- OUTSIDE RECORDS SUMMARY | 2023-10-16 15:18 | XMS_ITS | Encounter Summary ---
Author Organization [facility] [place] [address] Care Team Providers Care Weeder Thinner Name Role Phone Keena Baca APRN Primary Care Provider [phone] Encounter Details Date Type Department Care Team (Late st Contact Info) Description 02/04/2022 1:00 PM EDT Office Visit Hematology and Oncology at [address] [phone] Tanya Gonsalez MD [address] [place] [address] HEMATOLOGY/[place] [address] Chronic lymphocytic leukemia Social History Tobacco Use [...] Progress Notes * Tanya Gonsalez MD - 02/04/2022 1:00 PM EDT See Media for scanned document. Patient seen at [facility]. 02/04/2022 TANYA GONSALEZ MD 1:02 PM documented in this encounter Plan of Treatment Not on file documented as of this encounter Visit Diagnoses Diagnosis Chronic lymphocytic leukemia Chronic lymphoid leukemia, without mention of having achieved remission documented in this encounter Care Teams Weeder Thinner Relationship Specialty Start Date End Date Keena Baca, LUIS CARLOS [address] [facility] [address] PCP - General Family Medicine 01/13/21 documented as of this encounter
--- OUTSIDE RECORDS SUMMARY | 2023-10-16 15:18 | XMS_ITS | Clinical Summary ---
Author Organization [facility] Address [address] [place] [address] Care Team Providers Care Composite Bond Worker Name Role Phone Keena Baca NP Primary Care Provider [phone] Social History Tobacco Use Types Packs/Day Years Used Date Smoking Tobacco: Never Assessed Interpersonal Safety Answer Date Record ed Physically Hurt Never 03/13/2020 Verbally Threaten Not on file 03/13/2020 Sex and Gender Information Value Date Recorded Sex Assigned at Not on file Gender Identity Not on file Sexual Orientation Not on file Plan of Treatment Health Maintenance Due Date Last Done Comments Hepatitis C Screen 1944 RSV Immunization ( o r 60+ Years) (1 - 1-dose 60+ series) 2004 Fall Risk Screening 2009 COVID-19 Vaccine (2022- season) 2022 Care Teams Composite Bond Worker Relationship Specialty Start Date End Date Keena Baca [place] [place] [address] PCP - General 11/01/20
--- OUTSIDE RECORDS SUMMARY | 2023-10-16 15:18 | XMS_ITS | Encounter Summary ---
Author Organization [facility] [place] [address] Care Team Providers Care Stockbroking Dealer Name Role Phone Keena Baca APRN Primary Care Provider [phone] Reason for Referral * Consultation (Routine) - Closed Specialty Diagnoses / Procedures Referred By Nancy mendez Referred To Contact Dermatology Diagnoses Squamous cell carcinoma of hand, unspecified laterality Ashley Yeager MD [facility] [address] [place] [address] [facility] [address] [place] [address] Referral ID Status Reason Start Date Expiration Date V isits Requested Visits Authorized [id number] Closed Consult, Test & Treat 01/22/2021 01/22/2022 1 1 Encounter Details Date Type Department Care Team (Late st Contact Info) Description 01/22/2021 Orders Only Dermatology at [facility] [address] [place] [phone] Ashley Yeager MD [facility] [address] [place] [place] [address] Squamous cell carcinoma of hand, unspecified laterality Social History Tobacco Use Types Packs/Day Years [...] as of this encounter Visit Diagnoses Diagnosis Squamous cell carcinoma of hand, unspecified laterality documented in this encounter Care Teams Stockbroking Dealer Relationship Specialty Start Date End Date Keena Baca, RETREADER [address] [place] [address] PCP - General Family Medicine 01/13/21 documented as of this encounter
--- OUTSIDE RECORDS SUMMARY | 2023-10-16 15:18 | XMS_ITS | Referral Summary ---
Author Organization [facility] Address [address] [place] [address] Care Team Providers Care Automatic Tire Tester Name Role Phone Keena Baca NP Primary Care Provider [phone] Social History Tobacco Use Types Packs/Day Years Used Date Smoking Tobacco: Never Assessed Interpersonal Safety Answer Date Record ed Physically Hurt Never 03/13/2020 Verbally Threaten Not on file 03/13/2020 Sex and Gender Information Value Date Recorded Sex Assigned at Not on file Gender Identity Not on file Sexual Orientation Not on file Plan of Treatment Not on file Care Teams Automatic Tire Tester Relationship Specialty Start Date End Date Keena Baca NP [address] [place] [address] PCP - General 11/01/20
--- OUTSIDE RECORDS SUMMARY | 2023-10-16 15:18 | XMS_ITS | Encounter Summary ---
Author Organization [facility] [place] [address] Care Team Providers Care Wire Inserter Name Role Phone Keena Baca APRN Primary Care Provider [phone] Encounter Details Date Type Department Care Team (Late st Contact Info) Description 02/05/2021 1:00 PM EDT Office Visit Hematology and Oncology at [address] [phone] Tanya Gonsalez MD [address] [place] [address] HEMATOLOG[place] [address] Chronic lymphocytic leukemia Social History Tobacco Use [...] Progress Notes * Tanya Gonsalez MD - 02/05/2021 1:00 PM EDT See Media for scanned document. Patient seen at [facility]. 02/05/2021 TANYA GONSALEZ MD 1:13 PM documented in this encounter Plan of Treatment Not on file documented as of this encounter Visit Diagnoses Diagnosis Chronic lymphocytic leukemia Chronic lymphoid leukemia, without mention of having achieved remission documented in this encounter Care Teams Wire Inserter Relationship Specialty Start Date End Date Keena Baca, LUIS CARLOS [address] [facility] [place] [address] PCP - General Family Medicine 01/13/21 documented as of this encounter
--- OUTSIDE RECORDS SUMMARY | 2023-10-16 15:18 | XMS_ITS | Encounter Summary ---
Author Organization [facility] Address [address] [place] [address] Care Team Providers Care Agricultural Scientist Name Role Phone Keven Keena WARREN Primary Care Provider [phone] Encounter Details Date Type Department Care Team (Late st Contact Info) Description 06/15/[address] [facility] Pathology & Laboratory Medicine - [address] [phone] Outr Resulting Lab, Provider Social History Tobacco Use Types Packs/Day Years [...] Procedure Name Priority Date/Time Associated Diagnosis Comments ZZCOVID-19 TEST [facility] LAB PCR Today 06/14/2021 14:42 EDT COVID-19 TESTING Routine 06/14/2021 14:4 2 EDT documented in this encounter Results * COVID-19 TEST [facility] LAB PCR (06/14/2021 14:42 EDT) Swab 06/14/2021 14:4 2 EDT 06/15/2021 16:07 EDT Provider Outr Resulting Lab MICROBIOLOGY - GENERAL ORDERABLES [facility] [address] [place] [address] * COVID-19 TESTING (06/14/2021 14:42 EDT) COVID-19 rt-PCR Result Negative Negative 06/16/2021 11:42 EDT [facility] Comment: This test has not been FDA cleared or approved. This test has been authorized by FDA under an EUA for use by authorized laboratories. This test has been authorized only for detection of nucleic acid from 2019-nCoV, not for any other viruses or pathogens. This test is only authorized for the duration of the declaration that circumstances exist justifying the authorization of emergency use of in vitro diagnostic tests for detection and/or diagnosis of 2019-nCoV under section 564(b)(1) of Act, 21 U.S.C ?? 360bbb-3(b) (1), unless the authorization is terminated or revoked sooner. Negative results do not preclude 2019-nCoV infection and should not be used as the sole basis for treatment or other patient management decisions. Negative results must be combined with clinical observations, patient history, and epidemiological information. Testing was performed using the cayla SARS-CoV-2 assay ([employer] on the Cayla 6800 System Performing Lab Cayla [address] [facility] Lab 06/16/2021 11:42 EDT [facility] Swab 06/14/2021 14:4 2 EDT 06/15/2021 16:07 EDT Provider Outr Resulting Lab MICROBIOLOGY - GENERAL ORDERABLES [facility] [address] [place] [address] documented in this encounter Visit Diagnoses Not on filedocumented in this encounter Care Teams Agricultural Scientist Relationship Specialty Start Date End Date Keena Baca NP [place] [address] PCP - General 11/01/20 documented as of this encounter
--- OUTSIDE RECORDS SUMMARY | 2023-10-16 15:18 | XMS_ITS | Continuity of Care Document ---
Author Organization [facility] Address [address] [place] [address]- Care Team Providers Care Silviculture Forester Name Role Phone EMILY FERGUSON Primary Care Physician Encounter [facility] Date(s): 02/05/21 - 02/05/[address] [place], [place] [address] Discharge Disposition: Home Attending Physician: TANYA SENIOR Admitting Physician: TANYA SENIOR Allergies, Adverse Reactions, Alerts Substance Reaction Severity Status lisinopril 1 cough Active sulfa drugs Cough Active 1Statused by Person: KIANNA FELDER([facility]) on [phone] Assessment and Plan Future Appointments Immunizations Given and Recorded Vaccine Date Status Refusal Reason pneumococcal (PCV13) 01/29/16 Recorded pneumococcal (PPSV23) 01/30/13 Recorded Medications FLUoxetine 40 mg oral capsule See Instructions, [...] daily, # 30 EA, 0 Refill(s), Pharmacy: [facility], 1 packet(s) Oral BID,Instr:bid x 3 days [...] Range]: 1 Peripheral Pulse Rate [60-100 bpm] 72 bp m (02/05/21 12:00 PM) Blood Pressure [90-140/60-90 mmHg] 112/7 6mmHg (02/05/21 12:00 PM) Weight Dosing 63.3 kg (02/05/21 12:00 PM) Weight Dosing (lbs) 139.26 lb (02/05/21 12:00 PM) Social History Social History Type Response Smoking Status Former smoker, quit more than 30 days ago entered on: 01/12/17 Sex
--- OUTSIDE RECORDS SUMMARY | 2023-10-16 15:18 | XMS_ITS | Encounter Summary ---
Author Organization [facility] Address [address] [place] [address] Care Team Providers Care Grooming Salon Manager Name Role Phone Keven Keena WARREN Primary Care Provider [phone] Encounter Details Date Type Department Care Team (Late st Contact Info) Description 03/10/2020 Lab Requisition [facility] Pathology & Laboratory Medicine - [address] [address] Outr Resulting Lab, Provider Social History Tobacco [...] Procedure Name Priority Date/Time Associated Diagnosis Comments DO NOT ORDER STANDALONE - [facility] TEST Today 03/09/2020 13:30 EST COVID-19 TESTING Routine 03/09/2020 13:3 0 EST documented in this encounter Results * DO NOT ORDER STANDALONE - [facility] COVID TEST (03/09/2020 13:30 EST) COVID-19 rt-PCR Result NEGATIVE Negative 03/13/2020 7:18 EST [facility] Comment: 2019-novel Coronavirus (2019-nCoV) not detected by the qRT-PCR assay. Consider testing for other respiratory viruses or re-collecting for 2019-nCoV testing. Note: Optimum timing for peak viral levels during infections caused by 2019-nCoV have not been determined. Collection of multiple specimens from the same patient may be necessary to detect the virus. Limitations Positive results are indicative of active infection with SARS-CoV-2 but do not rule out bacterial infection or co-infection with other viruses. The agent detected may not be the definite cause of disease. In addition, detection of viral RNA may not indicate the presence of infectious virus or that SARS-CoV-2 is the causative agent for clinical symptoms. Negative results do not preclude SARS-CoV-2 infection and should not be used as the sole basis for patient management decisions. Negative results must be combined with clinical observations, patient history, and epidemiological information. False negative results may also occur if amplification inhibitors are present in the specimen or if inadequate numbers of organisms are present in the specimen. Optimum specimen types and timing for peak viral levels during infections caused by SARS-CoV-2 have not been fully determined. Collection of multiple specimens (types and time points) from the same patient may be necessary to detect the virus. The test was validated for use with upper respiratory specimens obtained via nasopharyngeal or oropharyngeal swabs in VTM, UTM, M4, M5, M6, saline, and MTM media. The performance of this test has not been established for other specimens. Specimens collected using other FDA recommended Specimen Collection Materials listed in the FDA COVID-19 [employer] communication (June 27, 2019) are processed with the caveat that they were not all validated for use with this test and the result must be interpreted in this context. Furthermore, a false negative results may occur if a specimen is improperly collected, transported or handled. If the virus mutates in the RT-PCR target region, SARS-CoV-2 may not be detected or may be detected less predictably. Inhibitors or other types of interference may produce a false negative result. An interference study evaluating the effect of common cold medications was not performed. This test is not FDA-cleared but its performance characteristics were established by our CLIA-certified, CAP-accredited, high complexity laboratory in accordance with CLIA regulations, [employer] (CAP) guidelines (Jun 20, 2019), and FDA guidance (Jun 01, 2019). This test is only for use under the Food and Drug Administration's Emergency Use Authorization. Swab ENTIRE NASOPHARYNX / Unknown 03/09/2020 13:30 EST 03/10/2020 18:21 EST Provider Outr Resulting Lab MICROBIOLOGY - GENERAL ORDERABLES [facility] [place], [place] * COVID-19 TESTING (03/09/2020 13:30 EST) COVID-19 rt-PCR Result NEGATIVE Negative 03/13/2020 10:03 EST [facility] Comment: 2019-novel Coronavirus (2019-nCoV) not detected by the qRT-PCR assay. Consider testing for other respiratory viruses or re-collecting for 2019-nCoV testing. Note: Optimum timing for peak viral levels during infections caused by 2019-nCoV have not been determined. Collection of multiple specimens from the same patient may be necessary to detect the virus. Limitations Positive results are indicative of active infection with SARS-CoV-2 but do not rule out bacterial infection or co-infection with other viruses. The agent detected may not be the definite cause of disease. In addition, detection of viral RNA may not indicate the presence of infectious virus or that SARS-CoV-2 is the causative agent for clinical symptoms. Negative results do not preclude SARS-CoV-2 infection and should not be used as the sole basis for patient management decisions. Negative results must be combined with clinical observations, patient history, and epidemiological information. False negative results may also occur if amplification inhibitors are present in the specimen or if inadequate numbers of organisms are present in the specimen. Optimum specimen types and timing for peak viral levels during infections caused by SARS-CoV-2 have not been fully determined. Collection of multiple specimens (types and time points) from the same patient may be necessary to detect the virus. The test was validated for use with upper respiratory specimens obtained via nasopharyngeal or oropharyngeal swabs in VTM, UTM, M4, M5, M6, saline, and MTM media. The performance of this test has not been established for other specimens. Specimens collected using other FDA recommended Specimen Collection Materials listed in the FDA COVID-19 [employer] communication (June 27, 2019) are processed with the caveat that they were not all validated for use with this test and the result must be interpreted in this context. Furthermore, a false negative results may occur if a specimen is improperly collected, transported or handled. If the virus mutates in the RT-PCR target region, SARS-CoV-2 may not be detected or may be detected less predictably. Inhibitors or other types of interference may produce a false negative result. An interference study evaluating the effect of common cold medications was not performed. This test is not FDA-cleared but its performance characteristics were established by our CLIA-certified, CAP-accredited, high complexity laboratory in accordance with CLIA regulations, [employer] (CAP) guidelines (Jun 20, 2019), and FDA guidance (Jun 01, 2019). This test is only for use under the Food and Drug Administration's Emergency Use Authorization. Performing Lab [facility] 03/13/2020 10:03 EST [facility] Swab 03/09/2020 13:3 0 EST 03/10/2020 18:21 EST Provider Outr Resulting Lab MICROBIOLOGY - GENERAL ORDERABLES [facility] [address] [place] [address] [facility] [place] documented in this encounter Visit Diagnoses Not on filedocumented in this encounter Care Teams Grooming Salon Manager Relationship Specialty Start Date End Date Keena Baca NP [address] [place] [address] PCP - General 11/01/20 documented as of this encounter
--- OUTSIDE RECORDS SUMMARY | 2023-10-16 15:19 | XMS_ITS | Encounter Summary ---
Author Organization [facility] [place] [address] Care Team Providers Care Harness Worker Name Role Phone Elizabeth Armenta MD Primary Care Provider [phone] Encounter Details Date Type Department Care Team (Late st Contact Info) Description 11/13/2017 Telephone Audiology at [address] [phone] Delmy Hong Social History Tobacco Use Types Packs/Day Years [...] encounter Miscellaneous Notes * Telephone Encounter - Delmy Hong - 11/13/2017 3:30 PM EDT Pt cancelled her November 01, 2017 HAS appt with Marquez Melo-NO LONGER NEEDED (I cannot afford 10k out ofpocket for this device.) Also canceled her 11/24 HAF and 12/07/17 In trial ck. documented in this encounter Plan of Treatment Not on file documented as of this encounter Visit Diagnoses Not on filedocumented in this encounter Care Teams Harness Worker Relationship Specialty Start Date End Date Elizabeth Armenta MD [facility] [address] [place] [address] PCP - General 08/22/14 01/12/21 documented as of this encounter
--- OUTSIDE RECORDS SUMMARY | 2023-10-16 15:19 | XMS_ITS | Encounter Summary ---
Author Organization [facility] [place] [address] Care Team Providers Care Supervisor Electronics Testing Name Role Phone Elizabeth Armenta MD Primary Care Provider [phone] Encounter Details Date Type Department Care Team (Late st Contact Info) Description 08/21/2018 9:45 AM EDT Office Visit Hematology and Oncology at [address] [phone] Tanya Gonsalez MD [address] [place] [address] HEMATOLOGY/[place] [address] Chronic lymphocytic leukemia Social History Tobacco Use [...] Progress Notes * Tanya Gonsalez MD - 08/21/2018 9:45 AM EDT See scanned document. Patient seen at [facility]. 08/21/2018 TANYA GONSALEZ MD 9:50 AM documented in this encounter Plan of Treatment Not on file documented as of this encounter Visit Diagnoses Diagnosis Chronic lymphocytic leukemia Chronic lymphoid leukemia, without mention of having achieved remission documented in this encounter Care Teams Supervisor Electronics Testing Relationship Specialty Start Date End Date Elizabeth Armenta MD [facility] [address] [place] [address] PCP - General 08/22/14 01/12/21 documented as of this encounter
--- OUTSIDE RECORDS SUMMARY | 2023-10-16 15:19 | XMS_ITS | Encounter Summary ---
[place] [address] Care Team Providers Care Embedded Systems Software Developer Name Role Phone Elizabeth Armenta MD Primary Care Provider [phone] Encounter Details Date Type Department Care Team (Late st Contact Info) Description 06/01/2017 Telephone [place] [phone] Adrianne Shields Social History Tobacco Use Types Packs/Day Years [...] encounter Miscellaneous Notes * Telephone Encounter - Adrianne Shields - 06/01/2017 3:12 PM EST Patient called to decline hearing test stating she feels that it is not worth the expense or her time and 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 I tried talking her out of cancelling the hearing test but she insisted on cancelling. documented in this encounter Plan of Treatment Not on file documented as of this encounter Visit Diagnoses Not on filedocumented in this encounter Care Teams Embedded Systems Software Developer Relationship Specialty Start Date End Date Elizabeth Armenta MD [facility] [address] [place] [address] PCP - General 08/22/14 01/12/21 documented as of this encounter
--- OUTSIDE RECORDS SUMMARY | 2023-10-16 15:19 | XMS_ITS | Encounter Summary ---
Author Organization [facility] [place] [address] Care Team Providers Care Riveter Portable Machine Name Role Phone Elizabeth Armenta MD Primary Care Provider [phone] Reason for Visit * Reason Comments Follow-up Encounter Details Date Type Department Care Team ([facility] Contact Info) Description 02/21/2017 9:00 AM EST Office Visit Hematology and Oncology at [address] [phone] Tanya Gonsalez MD [address] [place] [address] HEMATOLOGY/[place] [address] Chronic lymphocytic leukemia Social History Tobacco Use [...] Progress Notes * Tanya Gonsalez MD - 02/21/2017 9:00 AM EST See scanned document. Patient seen at [facility]. 02/21/2017 TANYA GONSALEZ MD 9:32 AM documented in this encounter Plan of Treatment Not on file documented as of this encounter Visit Diagnoses Diagnosis Chronic lymphocytic leukemia Chronic lymphoid leukemia, without mention of having achieved remission documented in this encounter Care Teams Riveter Portable Machine Relationship Specialty Start Date End Date Elizabeth Armenta MD LI[facility] [address] [place] [address] PCP - General 08/22/14 01/12/21 documented as of this encounter
--- OUTSIDE RECORDS SUMMARY | 2023-10-16 15:19 | XMS_ITS | Encounter Summary ---
[place] [address] Care Team Providers Care Medical Claims Representative Name Role Phone Elizabeth Armenta MD Primary Care Provider Reason for Referral * Diagnostic Test (Routine) - Closed Specialty Diagnoses / Procedures Referred By Contac t Referred To Contact Radiology Diagnoses CPA (cerebellopontine angle) tumor Meningitis Procedures MRI Brain With/WO Contrast (GENERIC) Jeri Burnette [employer] [place] [address] [place] [address] Referral ID Status Reason Start Date Expiration Date V isits Requested Visits Authorized [id number] Closed Specialty Service Requested 04/07/2016 04/07/2017 1 1 Reason for Visit * Diagnostic Test (Routine) - Closed Specialty Diagnoses / Procedures Referred By Contac t Referred To Contact Radiology Diagnoses CPA (cerebellopontine angle) tumor Meningitis Procedures MRI Brain With/WO Contrast (GENERIC) [place] [address] [place] [address] Referral ID Status Reason Start Date Expiration Date V isits Requested Visits Authorized [id number] Closed Specialty Service Requested 04/07/2016 04/07/2017 1 1 Encounter Details Date Type Department Care Team (Latest Contact Info) Description 05/20/2016 11:09 AM EST - 05/20/2016 11:59 PM EST Hospital Encounter MRI at [facility] [place], operated [place] [facility] [address] Iván Chaves MD [facility] [place] [address] CPA (cerebellopontine angle) tumor; Meningitis Discharge Disposition: Home Social History Tobacco Use Types Packs/Day Years [...] on file documented as of this encounter Medications at Time of Discharge Medication Sig Dispensed Refills Start Date End Date ibuprofen (ADVIL) 200 mg Tablet Take 400-600 mg by mouth as needed for Pain. albuterol (PROVENTIL HFA;VENTOLIN HFA;PROAIR) 90 mcg/actuation HFA Aerosol Inhaler Inhale 2 puffs into the lungs every 4 hours as needed for Wheezing. Use with spacer FLUoxetine (PROZAC) 20 mg Tablet Take 40 mg by mouth daily. losartan-hydrochlorothia zide (HYZAAR) 100-25 mg Tablet Take 0.5 tablets by mouth daily. Reported on 04/07/2016 KRILL OIL ORAL Take by mouth daily. FOLIC ACID/MULTIVIT-MIN/LUTEIN (CENTRUM SILVER ORAL) Take by mouth daily. LORazepam (ATIVAN) 0.5 mg Tablet Take 0.5 mg by mouth every 6 hours as needed for Anxiety. Reported on 05/20/2016 04/05/2021 CALCIUM CARBONATE/VITAMIN D3 (CALTRATE 600 + D ORAL) Take by mouth daily. 04/05/2021 documented as of this encounter Plan of Treatment Not on file documented as of this encounter Procedures Procedure Name Priority Date/Time Associated Diagnosis Comments MRI BRAIN WWO CONTRAST (GENERIC) Routine 05/20/2016 1:18 PM EST CPA (cerebellopontine angle) tumor Meningitis documented in this encounter Results * MRI Brain With/WO Contrast (GENERIC) (05/20/2016 1:18 PM EST) Anatomical Region Laterality Modality Head Magnetic Resonan ce Impressions 05/20/2016 2:19 PM EST Postoperative changes with fat packing but no clear-cut tumor residual. See above. 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 As previously, fat packing is present but no clear-cut residual neoplasm is seen. On the fat saturated T1 postcontrast sequence #9, there is a small crescent of enhancement at the anterior margin of the suppressed fat; this is likely reactive posterior surgical change rather than residual neoplasm. 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 Small amount of fluid surrounds the craniotomy flap, needing clinical correlation area Procedure Note Landon Escobar MD - 05/20/2016 EXAMINATION: MRI BRAIN WWO CONTRAST CLINICAL HISTORY: R acoustic neuroma fesection 03/2016, eval forresidual TECHNIQUE: Examination is done before and after intravenous administrationof 6 mL of Gadavist using our department acoustic neuroma protocol. COMPARISON: Prior MRI of the brain done 03/14/2016 FINDINGS: As previously, there has been right-sided suboccipital craniotomy forresection of cerebellopontine angle mass. As previously, fat packing is present butno clear-cut residual neoplasm is seen. On the fat saturated [id number] sequence #9, there is a small crescent of enhancement at the anteriormargin of the suppressed fat; this is likely reactive posterior surgical changerather than residual neoplasm. leptomeningeal enhancement seen previously is nolonger evident. Small amount of fluid surrounds the craniotomy flap, needingclinical correlation area IMPRESSION Postoperative changes with fat packing but no clear-cut tumor residual.See above. 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, unspecified documented in this encounter Administered Medications Inactive Administered Medications - up to 3 most recent administrations Medication Order MAR Action Action Date Dose Rate Site gadobutrol (GADAVIST) 1 mMol/mL injection 6 mL 6 mL, Intravenous, ONCE PRN, 1 dose, Starting on Mon05/20/16 at 1217, Until Mon05/20/16 at 1300, Per Protocol, Routine Given 05/20/2016 1:00 PM EST 6 mLs documented in this encounter Care Teams Medical Claims Representative Relationship Specialty Start Date End Date Elizabeth Armenta MD [facility] [address] [place] [address] PCP - General 08/22/14 01/12/21 documented as of this encounter
--- OUTSIDE RECORDS SUMMARY | 2023-10-16 15:19 | XMS_ITS | Encounter Summary ---
[place] [address] Care Team Providers Care Valve Pipe Irrigator Name Role Phone Elizabeth Armenta MD Primary Care Provider [phone] Encounter Details Date Type Department Care Team (Late st Contact Info) Description 06/01/2017 Telephone [place] [phone] Patricia Cuellar Social History Tobacco Use Types Packs/Day Years [...] encounter Miscellaneous Notes * Telephone Encounter - Patricia Cuellar - 06/01/2017 1:51 PM EST Called and sent [facility] message to patient inquiring if we should cancel JS appointment and MRI for 06/16 since she cancelled the hearing test on [facility]. Left message on mobile phone's voicemail to find out what she would like to do with her remaining appointments and dept phone number to call back to. documented in this encounter Plan of Treatment Not on file documented as of this encounter Visit Diagnoses Not on filedocumented in this encounter Care Teams Valve Pipe Irrigator Relationship Specialty Start Date End Date Elizabeth Armenta MD [facility] [address] [place] [address] PCP - General 08/22/14 01/12/21 documented as of this encounter
--- OUTSIDE RECORDS SUMMARY | 2023-10-16 15:19 | XMS_ITS | Encounter Summary ---
Author Organization [facility] [place] [address] Care Team Providers Care Silk Screen Printing Racker Name Role Phone Elizabeth Armenta MD Primary Care Provider [phone] Encounter Details Date Type Department Care Team (Late st Contact Info) Description 04/08/2016 Orders [place] [address] Iván Chaves MD [facility] [place] [address] Social History Tobacco Use Types Packs/Day Years [...] on filedocumented in this encounter Care Teams Silk Screen Printing Racker Relationship Specialty Start Date End Date Elizabeth Armenta MD [address] [place] [address] PCP - General 08/22/14 01/12/21 documented as of this encounter
--- OUTSIDE RECORDS SUMMARY | 2023-10-16 15:19 | XMS_ITS | Encounter Summary ---
[place] [address] Care Team Providers Care Stock Preparation Supervisor Name Role Phone Elizabeth Armenta MD Primary Care Provider [phone] Encounter Details Date Type Department Care Team (Late st Contact Info) Description 02/17/2017 Telephone [place] [phone] Patricia Cuellar Social History Tobacco Use Types [...] * Telephone Encounter - Patricia Cuellar - 02/17/2017 9:42 AM EST MRI questions documented in this encounter Plan of Treatment Not on file documented as of this encounter Visit Diagnoses Not on filedocumented in this encounter Care Teams Stock Preparation Supervisor Relationship Specialty Start Date End Date Elizabeth Armenta MD [facility] [address] [place] [address] PCP - General 08/22/14 01/12/21 documented as of this encounter
--- OUTSIDE RECORDS SUMMARY | 2023-10-16 15:19 | XMS_ITS | Encounter Summary ---
Author Organization [facility] [place] [address] Care Team Providers Care Electronic Security Technician Name Role Phone Elizabeth Armenta MD Primary Care Provider [phone] Encounter Details Date Type Department Care Team (Late st Contact Info) Description 08/22/2017 9:00 AM EDT Office Visit Hematology and Oncology at [address] [phone] Tanya Gonsalez MD [address] [place] [address] HEMATOLOGY/[place] [address] Chronic lymphocytic leukemia Social History Tobacco Use [...] Progress Notes * Tanya Gonsalez MD - 08/22/2017 9:00 AM EDT See scanned document. Patient seen at [facility]. 08/22/2017 TANYA GONSALEZ MD 9:21 AM documented in this encounter Plan of Treatment Not on file documented as of this encounter Visit Diagnoses Diagnosis Chronic lymphocytic leukemia Chronic lymphoid leukemia, without mention of having achieved remission documented in this encounter Care Teams Electronic Security Technician Relationship Specialty Start Date End Date Elizabeth Armenta MD [facility] [address] [place] [address] PCP - General 08/22/14 01/12/21 documented as of this encounter
--- OUTSIDE RECORDS SUMMARY | 2023-10-16 15:19 | XMS_ITS | Encounter Summary ---
Author Organization [facility] [place] [address] Care Team Providers Care Meal Cooker Name Role Phone Elizabeth Armenta MD Primary Care Provider [phone] Encounter Details Date Type Department Care Team (Late st Contact Info) Description 04/05/2016 Orders Only Neurosurgery at [facility] [place] [address] Pat Mcgowan RN Meningitis Social History Tobacco Use Types Packs/Day Years Used Date Smoking Tobacco: Former Cigarettes 0.5 15 Smokeless Tobacco: Never Comments:quit Alcohol Use Standard Drinks/Week Comments Yes 0 (1 standard drink = 0.6 oz pur e alcohol) wine nightly Sex and Gender Information Value Date Recorded Sex Assigned at Not on file Gender Identity Not on file Sexual Orientation Not on file documented as of this encounter Plan of Treatment Not on file documented as of this encounter Results * (ABNORMAL) Comprehensive metabolic panel (non-fasting) (04/07/2016 9:37 AM EST) Glucose Lvl 106 65 - 199 mg/dL [facility] Comment:Diabetes: >=200 mg/d L plus symptoms BUN 9 8 - 18 mg/dL [facility] Creatinine 0.67(L) 0.70 - 1.20 mg/dL [facility] Comment: Please note that the pediatric reference intervals supplied above were not validated at [facility] Results from pediatric patients should be interpreted in conjunction to the patient's age, height and muscle mass. Sodium 140 135 - 145 mmol/L [facility] Potassium 4.0 3.5 - 5.0 mmol/L [facility] Comment: Please note: ??Patients with WBC >100,000 may have falsely elevated Potassium levels. ??For accurate Potassium quantification in these patients send serum separator tube (gold top) for subsequent determinations. ??Contact the Clinical Chemistry Laboratory if there are any questions. Chloride 96(L) 98 - 107 mmol/L [facility] CO2 28 22 - 31 mmol/L [facility] Anion Gap 16(H) 5 - 15 mmol/L [facility] Calcium 9.5 8.5 - 10.5 mg/dL [facility] Total Protein 6.7 6.1 - 8.0 gm/dL [facility] Albumin 4.6 3.2 - 5.2 gm/dL [facility] AST 35(H) 0 - 30 unit/L [facility] ALT 42(H) 0 - 30 unit/L [facility] Alk Phos 72 40 - 104 unit/L [facility] Total Bilirubin 0.5 0.2 - 1.3 mg/dL [facility] Bili, Direct 0.1 0.0 - 0.3 mg/dL [facility] Estimated GFR >60 >=60 [facility] Comment: This estimated GFR (eGFR) value was calculated using the MDRD equation which has been validated on patients between the ages of 18 and 70. The MDRD should not be used to assess kidney function in patients < 18 years of age or in patients with extremes of body mass, or in patients with acute kidney failure. This value should be multiplied by 1.2 for patients. For further information please copy and paste the following links into your internet browser. http://[employer]sl[employer]/DHnkdep http://[employer]sl[employer]/DHMCnkf Blood specimen (specimen) 04/07/2016 9:37 AM EST 04/07/2016 9:43 AM EST Narrative Resulting Agency Comment Spec In Lab Iván Chaves MD CHEMISTRY ORDERABLES [facility] [place] [address] documented in this encounter Visit Diagnoses Diagnosis Meningitis Meningitis, unspecified documented in this encounter Care Teams Meal Cooker Relationship Specialty Start Date End Date Elizabeth Armenta MD LIAM [facility] [address] [place] [address] PCP - General 08/22/14 01/12/21 documented as of this encounter
--- OUTSIDE RECORDS SUMMARY | 2023-10-16 15:19 | XMS_ITS | Encounter Summary ---
Author Organization [facility] [place] [address] Care Team Providers Care Senior Geotechnical Engineer Name Role Phone Elizabeth Armenta MD Primary Care Provider [phone] Encounter Details Date Type Department Care Team (Late st Contact Info) Description 02/18/2020 8:45 AM EST Office Visit Hematology and Oncology at [address] [phone] Tanya Gonsalez MD [address] [place] [address] HEMATOLOGY/[place] [address] Chronic lymphocytic leukemia Social History Tobacco Use [...] Progress Notes * Tanya Gonsalez MD - 02/18/2020 8:45 AM EST See scanned document. Patient seen at [facility]. 02/18/2020 TANYA GONSALEZ MD 9:00 AM documented in this encounter Plan of Treatment Not on file documented as of this encounter Visit Diagnoses Diagnosis Chronic lymphocytic leukemia Chronic lymphoid leukemia, without mention of having achieved remission documented in this encounter Care Teams Senior Geotechnical Engineer Relationship Specialty Start Date End Date Elizabeth Armenta MD LIAM [facility] [address] [facility] [place] [address] PCP - General 08/22/14 01/12/21 documented as of this encounter
--- OUTSIDE RECORDS SUMMARY | 2023-10-16 15:19 | XMS_ITS | Encounter Summary ---
[place] [address] Care Team Providers Care Hotel Dining Room Cashier Name Role Phone Elizabeth Armenta MD Primary Care Provider [phone] Encounter Details Date Type Department Care Team (Late st Contact Info) Description 09/14/2017 Telephone Audiology at [address] [phone] Delmy Hong Social History Tobacco Use Types [...] * Telephone Encounter - Delmy Hong - 09/14/2017 1:39 PM EDT Called [phone] left message requesting a call back, need to reschedule her 11/24/17 HAF, holding 11/30/17 at 9:00. Foster Care Case Manager not in clinic on 11/24/17 documented in this encounter Plan of Treatment Not on file documented as of this encounter Visit Diagnoses Not on filedocumented in this encounter Care Teams Hotel Dining Room Cashier Relationship Specialty Start Date End Date Elizabeth Armenta MD LIAM [facility] [address] [place] [address] PCP - General 08/22/14 01/12/21 documented as of this encounter
--- OUTSIDE RECORDS SUMMARY | 2023-10-16 15:19 | XMS_ITS | Encounter Summary ---
[place] [address] Care Team Providers Care Fur Weigher Name Role Phone Elizabeth Armenta MD Primary Care Provider [phone] Reason for Visit * Audiology Exam (Routine) - Closed Specialty Diagnoses / Procedures Referred By Nancy mendez Referred To Contact Audiology Diagnoses CPA (cerebellopontine angle) [place] [address] [facility] Audiology [address] [place] [phone] Referral ID Status Reason Start Date Expiration Date V isits Requested Visits Authorized [id number] Closed Specialty Service Requested 04/07/2016 04/07/2017 1 1 Encounter Details Date Type Department Care Team (Latest Contact Info) Description 05/20/2016 1:45 PM EST Office Visit Audiology at [address] [phone] Lia Mao, [facility] [place] [address] Asymmetrical sensorineural hearing loss; Right acoustic neuroma Social History Tobacco Use Types Packs/Day Years [...] as of this encounter Progress Notes * Lia Mao MEd - 05/20/2016 1:45 PM EST Patient was seen for an audiologic evaluation as medically indicated in conjunction with an appointment with Dr. Norman Aguilera in Otolaryngology. Please refer to the audiogram under Procedures forfindings, impressions, and recommendations. 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
--- OUTSIDE RECORDS SUMMARY | 2023-10-16 15:19 | XMS_ITS | Encounter Summary ---
[place] [address] Care Team Providers Care Jewelry Enameler Name Role Phone Elizabeth Armenta MD Primary Care Provider [phone] Reason for Referral * Audiology Exam (Routine) - Closed Specialty Diagnoses / Procedures Referred By Contac t Referred To Contact Audiology Diagnoses CPA (cerebellopontine angle) [place] [address] [facility] [address] [place] [phone] Referral ID Status Reason Start Date Expiration Date V isits Requested Visits Authorized [id number] Closed Specialty Service Requested 04/07/2016 04/07/2017 1 1 * Physical Therapy (Routine) - Specialty Diagnoses / Procedures Referred By Contac t Referred To Contact Physical Therapy 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, [place] [address] Referral ID Status Reason Start Date Expiration Date V isits Requested Visits Authorized [id number] Evaluate and Treat 04/07/2016 10/04/2016 12 12 * Diagnostic Test (Routine) - Closed Specialty Diagnoses / Procedures Referred By Contmikaela mendez Referred To Contact Radiology Diagnoses CPA (cerebellopontine angle) tumor Meningitis Procedures MRI Brain With/WO Contrast (GENERIC) [place] [address] [place] [address] Referral ID Status Reason Start Date Expiration Date V isits Requested Visits Authorized [id number] Closed Specialty Service Requested 04/07/2016 04/07/2017 1 1 Reason for Visit * Reason Comments Follow-up Encounter Details Date Type Department Care Team (Late st Contact Info) Description 04/07/2016 10:30 AM EST Office [place] [phone] Jeri Burnette GRAIN MERCHANDISING MANAGER [facility] [place] [address] CPA (cerebellopontine angle) tumor; Meningitis; CSF leak; 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, right Social History Tobacco Use Types Packs/Day Years [...] Sign Reading Time Taken Comments Blood Pressure 145/85 04/07/2016 10:38 AM EST Pulse 100 04/07/2016 10:38 AM EST Temperature - - Respiratory Rate - - Oxygen Saturation - - Inhaled Oxygen Concentration - - Weight 62.2 kg (137 lb 3.2 oz) 04/07/2016 10:38 AM EST Height 162.6 cm (5' 4) 04/07/2016 10:38 AM EST Body Mass Index 23.55 04/07/2016 10:38 AM EST documented in this encounter Progress Notes * Jeri López, GRAIN MERCHANDISING MANAGER - 04/07/2016 10:30 AM EST HPI Large R acoustic neuroma resection, retrosigmoid approach, 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 Chaves and Ale. A few days prior to her admission 03/14/16, she began having increased headaches and had a few drops of clear fluid from nares with forward bend. She presented to outside hospital where she had elevated WBC and CT showing pneumocephalus. She was admitted for lumbar drain insertion and empiric antibiotic treatment for presumed meningitis under the direction of ID. She was discharged 03/23/16 with [facility] follow-up for IV antibiotics. Her last dose of antibiotic treatment was approximately 03/28/16, and her PICC line was removed by the [facility]NA a few days following. She returns today for follow-up and had CBC/CMP drawn earlier today. She really feels quite well given the recent events. She fatigues more quickly than usual, but is participating in home-based activities and taking rest periods periodically. She is sleeping well through the night, using flexeril at night for muscular tightness around the incision. She does not take naps during the day. She denies headaches or fevers (monitoring with thermometer at home), N&V, abdominal pain, dizzness/vertigo. Endorses occasional R eye irritation relieved with eye drops. Endorses metallic taste to some foods. Denies facial weakness. On exam appears well in NAD. EOMs full, pupils equal. HB II/ (very slight right lip asymmetry); right lid observed to blink less frequently than left UE/LE strength 5/5 Light touch sensation intact Romberg increased sway without fall Tandem stance stable x 10 seconds. 4 errors on tandem walk. Labs reviewed and WNL (CBC/BMP) given leukemia (WBC remains elevated--compared to pre-op baseline and is at baseline) A/P: Patient doing well post large right acoustic neuroma resection with CSF leak and meningitis. No further evidence of CSF leak/infectious signs. Discussed recovery from acoustic neuroma surgery. Given readmission and additional treatment, will require additional time away from work duties. [place] documents completed for additional time; we will evaluate for return to work at her follow-up visit. MRI IAC protocol w/wo contrast in 6 weeks, along with audiogram and acoustic neuroma clinic visit. Will refer for vestibular PT in [place] once patient has returned home. 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
--- OUTSIDE RECORDS SUMMARY | 2023-10-16 15:19 | XMS_ITS | Encounter Summary ---
[place] [address] Care Team Providers Care Makeup Sales Consultant Name Role Phone Elizabeth Armenta MD Primary Care Provider [phone] Reason for Referral * Diagnostic Test (Routine) - Closed Specialty Diagnoses / Procedures Referred By Contac t Referred To Contact Radiology Diagnoses Right acoustic neuroma Procedures MRI Brain wwo Contrast (Generic) [place] [address] [place] [address] Referral ID Status Reason Start Date Expiration Date V isits Requested Visits Authorized [id number] Closed Specialty Service Requested 02/17/2017 02/17/2018 1 1 Reason for Visit * Diagnostic Test (Routine) - Closed Specialty Diagnoses / Procedures Referred By Contac t Referred To Contact Radiology Diagnoses Right acoustic neuroma Procedures MRI Brain wwo Contrast (Generic) [place] [address] [place] [address] Referral ID Status Reason Start Date Expiration Date V isits Requested Visits Authorized [id number] Closed Specialty Service Requested 02/17/2017 02/17/2018 1 1 Encounter Details Date Type Department Care Team (Latest Contact Info) Description 08/11/2017 7:57 AM EDT - 08/11/2017 11:59 PM EDT Hospital [place] [address] Jeri Burnette APRN [facility] [place] [address] Right acoustic neuroma Discharge Disposition: Home Social History Tobacco Use [...] Comments MRI BRAIN WWO CONTRAST (GENERIC) Routine 08/11/2017 9:02 AM EDT Right acoustic neuroma documented in this encounter Results * MRI Brain wwo Contrast (Generic) (08/11/2017 9:02 AM EDT) Anatomical Region Laterality Modality Head Magnetic Resonan ce Impressions 08/11/2017 10:18 AM EDT Evolution of postsurgical changes from right retromastoid resection of large right IAC/cerebellopontine angle neoplasm. Significant resorption of fat packing with new enhancement within and posterior to the right acousticus. The majority appears to represent posttreatment change though there may be a smaller component of recurrent/residual acoustic neuroma. Continued follow-up recommended. I have personally reviewed the image(s) and the residents interpretation and agree with the findings, Lia Bradley at 08/11/2017 10:18 AM Narrative 08/11/2017 10:18 AM EDT EXAMINATION: MRI BRAIN WWO CONTRAST (GENERIC) CLINICAL HISTORY: right acoustic neuroma resection March 2016, eval for recurrence TECHNIQUE: MRI of the brain was performed prior to and following the intravenous administration of 12 mL Dotarem. IAC protocol. COMPARISON: MRIs of the brain dated 05/10/2016, 03/14/2016, 09/30/2015 CT head 03/14/2016 FINDINGS: Right retrosigmoid craniectomy appears similar to the prior postoperative MRI. The fat packing material at the right porus acusticus has markedly decreased in volume since the previous MRI. There is a 8 x 13 mm region of enhancement in the right internal auditory canal and surgical bed containing foci of fat, the majority of which may represent posttreatment change. Focal enhancement measuring 5 mm within the residual IAC could reflect posttreatment change versus recurrent/residual acoustic neuroma. No interval change in amount of the fat packing material in the right mastoid cavity. Scattered nonspecific periventricular, deep and subcortical white matter hyperintensities on axial FLAIR images of the brain, unchanged from previous. No abnormal enhancement or diffusion restriction in the brain parenchyma. Unchanged ventricular caliber, enlarged from parenchymal volume loss. Trace ethmoid air cell mucosal thickening. Procedure Note Lia Bradley MD - 08/11/2017 EXAMINATION: MRI BRAIN WWO CONTRAST (GENERIC) CLINICAL HISTORY: right acoustic neuroma resection March 2016, evalfor recurrence TECHNIQUE: MRI of the brain was performed prior to and following the intravenous administration of 12 mL Dotarem. IAC protocol. COMPARISON: MRIs of the brain dated 05/10/2016, 03/14/2016, 09/30/2015 CT head 03/14/2016 FINDINGS: Right retrosigmoid craniectomy appears similar to the prior postoperativeMRI. The fat packing material at the right porus acusticus has markedlydecreased in volume since the previous MRI. There is a 8 x 13 mm region of enhancementin the right internal auditory canal and surgical bed containing foci of fat,the majority of which may represent posttreatment change. Focal enhancement measuring 5 mm within the residual IAC could reflect posttreatment changeversus recurrent/residual acoustic neuroma. No interval change in amount of the fat packing material in the rightmastoid cavity. Scattered nonspecific periventricular, deep and subcortical whitematter hyperintensities on axial FLAIR images of the brain, unchanged fromprevious. No abnormal enhancement or diffusion restriction in the brain parenchyma.Unchanged ventricular caliber, enlarged from parenchymal volume loss. Trace ethmoidair cell mucosal thickening. IMPRESSION Evolution of postsurgical changes from right retromastoid resection oflarge right IAC/cerebellopontine angle neoplasm. Significant resorption of fatpacking with new enhancement within and posterior to the right acousticus. Themajority appears to represent posttreatment change though there may be a smaller component of recurrent/residual acoustic neuroma. Continued follow-up recommended. I have personally reviewed the image(s) and the residents interpretationand agree with the findings, Lia Bradley at 08/11/2017 10:18 AM Jeri Burnette APRN [facility] MRI ORDERABLES documented in this encounter Visit Diagnoses Diagnosis Right acoustic neuroma Benign neoplasm of cranial nerves documented in this encounter Administered Medications Inactive Administered Medications - up to 3 most recent administrations Medication Order MAR Action Action Date Dose Rate Site gadoterate meglumine (DOTAREM) 0.5 mmol/mL injection 0-20 mL/kg 0-20 mL/kg/dose, Intravenous, ONCE PRN, 1 dose, Starting on Mon08/11/17 at 0847, Until Mon08/11/17 at 0847, Per Protocol, Radiology Contrast, Routine Given 08/11/2017 8:47 AM EDT 12 mLs documented in this encounter Care Teams Makeup Sales Consultant Relationship Specialty Start Date End Date Elizabeth Armenta MD [facility] [address] [place] [address] PCP - General 08/22/14 01/12/21 documented as of this encounter
--- OUTSIDE RECORDS SUMMARY | 2023-10-16 15:19 | XMS_ITS | Encounter Summary ---
Author Organization [facility] [place] [address] Care Team Providers Care Provisioning Specialist Name Role Phone Elizabeth Armenta MD Primary Care Provider [phone] Encounter Details Date Type Department Care Team (Late st Contact Info) Description 02/20/2018 9:00 AM EST Office Visit Hematology and Oncology at [address] [phone] Tanya Gonsalez MD [address] [place] [address] [place]ATOLOGY/[place] [address] Chronic lymphocytic leukemia Social History Tobacco Use [...] Progress Notes * Tanya Gonsalez MD - 02/20/2018 9:00 AM EST See scanned document. Patient seen at [facility]. 02/20/2018 TANYA GONSALEZ MD 9:10 AM documented in this encounter Plan of Treatment Not on file documented as of this encounter Visit Diagnoses Diagnosis Chronic lymphocytic leukemia Chronic lymphoid leukemia, without mention of having achieved remission documented in this encounter Care Teams Provisioning Specialist Relationship Specialty Start Date End Date Elizabeth Armenta MD [facility] [address] [facility] [place] [address] PCP - General 08/22/14 01/12/21 documented as of this encounter
--- OUTSIDE RECORDS SUMMARY | 2023-10-16 15:19 | XMS_ITS | Encounter Summary ---
[place] [address] Care Team Providers Care Chargeback Analyst Name Role Phone Elizabeth Armenta MD Primary Care Provider [phone] Reason for Referral * Diagnostic Test (Routine) - Closed Specialty Diagnoses / Procedures Referred By Nancy mendez Referred To Contact Radiology Diagnoses Right acoustic neuroma Procedures MRI Brain wwo Contrast (Generic) [place] [address] [place] [address] Referral ID Status Reason Start Date Expiration Date V isits Requested Visits Authorized [id number] Closed Specialty Service Requested 02/17/2017 02/17/2018 1 1 Encounter Details Date Type Department Care Team (Late st Contact Info) Description 02/17/2017 Orders [place] [phone] [place] [address] Right acoustic neuroma Social History Tobacco Use [...] of this encounter Results * MRI Brain wwo [...] ethmoid air cell mucosal thickening. 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
--- OUTSIDE RECORDS SUMMARY | 2023-10-16 15:19 | XMS_ITS | Encounter Summary ---
[place] [address] Care Team Providers Care Gardening Manager Name Role Phone Elizabeth Armenta MD Primary Care Provider [phone] Encounter Details Date Type Department Care Team (Late st Contact Info) Description 04/07/2016 9:30 AM EST Laboratory Appointment Lab [address] [place] [address] Meningitis Social History Tobacco Use Types Packs/Day [...] Procedure Name Priority Date/Time Associated Diagnosis Comments SCAN, PERIPHERAL BLOOD STAT 7 9:37 AM EST HEMOGRAM STAT 04/07/2016 9:37 AM EST Meningitis DIFFERENTIAL, AUTOMATED STAT 04/07/2016 9:37 AM EST Meningitis CBC (WITH DIFF) STAT 04/07/2016 9:37 AM EST Meningitis COMPREHENSIVE METABOLIC PANEL (NON-FASTING) STAT 04/07/2016 9:37 AM EST Meningitis documented in this encounter Results * Scan, Peripheral Blood (04/07/2016 9:37 AM EST) Plat Estimate Normal [facility] RBC Morphology Normal [facility] Atypical Lymph Moderate [facility] Smudge Cells Present [facility] Blood specimen (specimen) 04/07/2016 9:37 AM EST 04/07/2016 9:43 AM EST Narrative Resulting Agency Comment Spec In Lab Iván Chaves MD HEMATOLOGY ORDERABLE S [facility] [place] [address] * (ABNORMAL) Differential, Automated (04/07/2016 9:37 AM EST) Neutrophils % 27.2 % [facility] Neutr Abs (ANC) 5.74 1.70 - 6.10 x10(3)/ L [facility] Lymphocytes % 66.9 % [facility] Lymphocytes Abs 14.1(H) 0.9 - 3.2 x10(3)/[facility] Monocytes % 4.5 % [facility] Monocyte Abs 1.0(H) 0.3 - 0.9 x10(3)/ L [facility] Eosinophils % 0.6 % [facility] Eosinophils Abs 0.1 0.0 - 0.4 x10(3)/ L [facility] Basophils % 0.4 % [facility] Basophils Abs 0.1 0.0 - 0.1 x10(3)/ L [facility] Immature Gran % 0.40 % [facility] Comment: Immature granulocytes(IG's)percentage and absolute count will include metamyelocytes, myelocytes, and promyelocytes. Blood smears from CBCs yielding IG's will be scanned manually for concordance. If this scan disagrees with the automated IG or if promyelocytes are noted, a manual differential will be performed. Elizabeth Gran Abs 0.09(H) 0.00 - 0.04 x10(3)/mc L [facility] Blood specimen (specimen) 04/07/2016 9:37 AM EST 04/07/2016 9:43 AM EST Narrative Resulting Agency Comment Spec In Lab Iván Chaves MD HEMATOLOGY ORDERABLE S [facility] [place] [address] * (ABNORMAL) Hemogram (04/07/2016 9:37 AM EST) WBC 21.1(H) 4.0 - 9.5 x10(3)/[facility] RBC 4.27 4.00 - 5.21 x10(6)/[facility] Hemoglobin 12.8 11.7 - 15.5 gm/dL [facility] Hematocrit 37.8 35.7 - 45.8 % [facility] MCV 88.5 82.6 - 94.4 fL [facility] MCH 30.0 27.1 - 32.0 pg [facility] MCHC 33.9 31.7 - 35.0 gm/dL [facility] Platelets 208 145 - 357 x10(3)/[facility] RDWSD 45.1 37.0 - 46.0 [facility] RDWCV 14.1 11.5 - 14.1 % [facility] MPV 8.4 7.6 - 12.9 [facility] nRBC % Auto 0.0 % [facility] nRBC Abs Auto 0.000 0.000 - 0.000 x10(3)/[facility] Blood specimen (specimen) 04/07/2016 9:37 AM EST 04/07/2016 9:43 AM EST Narrative Resulting Agency Comment Spec In Lab Iván Chaves MD HEMATOLOGY ORDERABLE S [facility] [place] [address] * (ABNORMAL) Comprehensive metabolic panel (non-fasting) (04/07/2016 9:37 AM EST) Glucose Lvl 106 65 - 199 mg/dL [facility] Comment:Diabetes: >=200 mg/d L plus symptoms BUN 9 8 - 18 mg/dL [facility] Creatinine 0.67(L) 0.70 - 1.20 mg/dL [facility] Comment: Please note that the pediatric reference intervals supplied above were not validated at [facility]. Results from pediatric patients should be interpreted in conjunction to the patient's age, height and muscle mass. Sodium 140 135 - 145 mmol/L [facility] Potassium 4.0 3.5 - 5.0 mmol/L [facility] Comment: Please note: ??Patients with WBC >100,000 may have falsely elevated Potassium levels. ??For accurate Potassium quantification in these patients send serum separator tube (gold top) for subsequent determinations. ??Contact the Clinical Chemistry Laboratory if there are any questions. Chloride 96(L) 98 - 107 mmol/L [facility] CO2 28 22 - 31 mmol/L [facility] Anion Gap 16(H) 5 - 15 mmol/L [facility] Calcium 9.5 8.5 - 10.5 mg/dL [facility] Total Protein 6.7 6.1 - 8.0 gm/dL [facility] Albumin 4.6 3.2 - 5.2 gm/dL [facility] AST 35(H) 0 - 30 unit/L [facility] ALT 42(H) 0 - 30 unit/L [facility] Alk Phos 72 40 - 104 unit/L [facility] Total Bilirubin 0.5 0.2 - 1.3 mg/dL [facility] Bili, Direct 0.1 0.0 - 0.3 mg/dL [facility] Estimated GFR >60 >=60 [facility] Comment: This estimated GFR (eGFR) [...] the following links into your internet browser. [email or web address]/[email or web address] [email or web address]/[email or web address] Blood specimen (specimen) 04/07/2016 9:37 AM EST 04/07/2016 9:43 AM EST Narrative Resulting Agency Comment Spec In Lab Iván Chaves MD CHEMISTRY ORDERABLES Performing Organization Address City/State/[facility] Co de Phone Number [facility] [place] [address] documented in this encounter Visit Diagnoses Diagnosis Meningitis Meningitis, unspecified documented in this encounter Care Teams Gardening Manager Relationship Specialty Start Date End Date Elizabeth Armenta MD LIAM [facility] [address] [place] [address] PCP - General 08/22/14 01/12/21 documented as of this encounter
--- OUTSIDE RECORDS SUMMARY | 2023-10-16 15:19 | XMS_ITS | Encounter Summary ---
[place] [address] Care Team Providers Care Stitching Machine Feeder Or Offbearer Name Role Phone Elizabeth Armenta MD Primary Care Provider [phone] Reason for Visit * Reason Comments Hearing Loss Encounter Details Date Type Department Care Team (Latest Contact Info) Description 08/11/2017 10:15 AM EDT Office Visit Audiology at [address] [address] Yumiko Wadsworth Asymmetrical sensorineural hearing loss; Right acoustic neuroma [...] as of this encounter Progress Notes * Yumiko Wadsworth - 08/11/2017 10:15 AM EDT AUDIOLOGIC EVALUATION Latisha Felipe was seen on 08/11/2017 for an audiologic evaluation. Please refer to the scanned audiogram listed under Procedures for findings, impressions and recommendations. OTONIEL Parra Audiology [place] [address] ; Please do not hesitate to contact this Section at [phone] if there are questions regarding this report or its recommendations. I have reviewed this case and concur with the findings. Sallie Elliott Clinical Premium Card Cancellation Clerk [facility] [place] [address] ; documented in this encounter Plan of Treatment Not on file documented as of this encounter Procedures Procedure Name Priority Date/Time Associated Diagnosis Comments COMPREHENSIVE HEARING TEST Routine 08/11/2017 10:06 AM EDT documented in this encounter Results * Comprehensive hearing test (08/11/2017 10:06 AM EDT) 08/11/2017 10:0 6 AM EDT Narrative AUDBASE COMP - 08/11/2017 10:06 AM EDT 1. Re-eval hearing per ENT, sooner if new concerns arise 2. Consider trial of personal amplification if no medical/surgical improvement in hearing expected. Discussed CROS system. Patient will contact our clinic to schedule appt at her convenience. Procedure Note Unknown - 08/11/2017 1. Re-eval hearing per ENT, sooner if new concerns arise 2. Consider trial of personal amplification if no medical/surgicalimprovement in hearing expected. Discussed CROS system. Patient will contact our clinic toschedule appt at her convenience. 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
--- OUTSIDE RECORDS SUMMARY | 2023-10-16 15:19 | XMS_ITS | Encounter Summary ---
[place] [address] Care Team Providers Care Photoresist Contact Printer Name Role Phone Elizabeth Armenta MD Primary Care Provider [phone] Encounter Details Date Type Department Care Team (Late st Contact Info) Description 05/20/2016 2:30 PM EST Notes [place] [address] [place] [address] Social History Tobacco Use Types Packs/Day Years [...] on filedocumented in this encounter Care Teams Photoresist Contact Printer Relationship Specialty Start Date End Date Elizabeth Armenta MD [facility] [address] [place] [address] PCP - General 08/22/14 01/12/21 documented as of this encounter
--- OUTSIDE RECORDS SUMMARY | 2023-10-16 15:19 | XMS_ITS | Encounter Summary ---
Author Organization [facility] [place] [address] Care Team Providers Care Broadcast Correspondent Name Role Phone Elizabeth Armenta MD Primary Care Provider [phone] Encounter Details Date Type Department Care Team (Late st Contact Info) Description 02/19/2019 8:45 AM EST Office Visit Hematology and Oncology at [address] [phone] Tanya Gonsalez MD [address] [place] [address] HEMATOLOGY/[place] [address] Chronic lymphocytic leukemia Social History Tobacco Use [...] Progress Notes * Tanya Gonsalez MD - 02/19/2019 8:45 AM EST See scanned document. Patient seen at [facility]. 02/19/2019 TANYA GONSALEZ MD 9:08 AM documented in this encounter Plan of Treatment Not on file documented as of this encounter Visit Diagnoses Diagnosis Chronic lymphocytic leukemia Chronic lymphoid leukemia, without mention of having achieved remission documented in this encounter Care Teams Broadcast Correspondent Relationship Specialty Start Date End Date Elizabeth Armenta MD [facility] [address] [facility] [address] PCP - General 08/22/14 01/12/21 documented as of this encounter
--- OUTSIDE RECORDS SUMMARY | 2023-10-16 15:19 | XMS_ITS | Encounter Summary ---
[place] [address] Care Team Providers Care Oscillograph Technician Name Role Phone Elizabeth Armenta MD Primary Care Provider [phone] Encounter Details Date Type Department Care Team (Late st Contact Info) Description 03/29/2016 [place] [phone] Pat Mcgowan RN Social History Tobacco Use Types Packs/Day [...] encounter Miscellaneous Notes * Telephone Encounter - Pat Mcgowan RN - 03/29/2016 9:44 AM EST F/U call s/p CSF leak/meningitis S/p resection of acoustic neuroma on 03/03/16 Date: 03/29/16 Neuro: alert and oriented: thinking is clearing, tires easily Dizzy or lightheaded: denies Numbness/tingling/weakness: numbness in mouth Ambulation: steady without the walker Vision: normal-wears glasses, right eyelid slightly droopy and itchy Speech: good Hearing: no different-very little hearing in right ear Incision: PICC site looks good Pain: c/o head feeling like tight band on it, takes Tylenol during the day and Flexeril at night with relief PO: eating and drinking ok, appetite is coming back B&B: working well Sleep: good, naps during the day Other: no fever VNA wants to remove PICC today-transferred to Infectious Disease clinic to clarify labs, timing of PICC removal, and f/u appt. documented in this encounter Plan of Treatment Not on file documented as of this encounter Visit Diagnoses Not on filedocumented in this encounter Care Teams Oscillograph Technician Relationship Specialty Start Date End Date Elizabeth Armenta MD LIAM [facility] [address] [place] [address] PCP - General 08/22/14 01/12/21 documented as of this encounter
--- OUTSIDE RECORDS SUMMARY | 2023-10-16 15:19 | XMS_ITS | Encounter Summary ---
Author Organization [facility] [place] [address] Care Team Providers Care Business Agent Name Role Phone Elizabeth Armenta MD Primary Care Provider [phone] Encounter Details Date Type Department Care Team (Latest Contact Info) Description 08/20/2019 8:45 AM EDT TH Visit (TeleHealth) Hematology and Oncology at [address] [phone] Tanya Gonsalez MD [address] [place] [address] HEMATOLOGY/[place] [address] Chronic lymphocytic leukemia Social History Tobacco Use [...] Progress Notes * Tanya Gonsalez MD - 08/20/2019 8:45 AM EDT See scanned document. Patient seen at [facility]. 08/20/2019 TANYA GONSALEZ MD 9:22 AM documented in this encounter Plan of Treatment Not on file documented as of this encounter Visit Diagnoses Diagnosis Chronic lymphocytic leukemia Chronic lymphoid leukemia, without mention of having achieved remission documented in this encounter Care Teams Business Agent Relationship Specialty Start Date End Date Elizabeth Armenta MD [facility] [address] [place] [address] PCP - General 08/22/14 01/12/21 documented as of this encounter
--- OUTSIDE RECORDS SUMMARY | 2023-10-16 15:19 | XMS_ITS | Encounter Summary ---
Author Organization [facility] [place] [address] Care Team Providers Care Medical Referral Coordinator Name Role Phone Elizabeth Armenta MD Primary Care Provider [phone] Reason for Visit * Reason Comments Follow-up Acoustic Neuroma cli [facility] 1 year f/u w/ MRI and AE Encounter Details Date Type Department Care Team (Late st Contact Info) Description 08/11/2017 11:00 AM EDT Office Visit [place] [address] Norman Aguilera MD [facility] [place] [address] Right acoustic neuroma; Sensorineural hearing loss (SNHL) of right ear with restricted hearing of left ear Social History Tobacco Use Types Packs/Day Years [...] Sign Reading Time Taken Comments Blood Pressure - - Pulse - - Temperature - - Respiratory Rate - - Oxygen Saturation - - Inhaled Oxygen Concentration - - Weight 61.7 kg (136 lb) 08/11/2017 10:46 AM EDT Height 162.6 cm (5' 4) 08/11/2017 10:46 AM EDT Body Mass Index 23.34 08/11/2017 10:46 AM EDT documented in this encounter Progress Notes * Norman Aguilera MD - 08/11/2017 11:00 AM EDT HPI: Patient is seen in the Acoustic Neuroma Clinic in follow up for large right acoustic neuroma. Patient had surgical resection 03/03/16. Surgical approach retrosigmoid, by (s) Andie and Ale. Post-op symptoms HBII facial weakness - resolved, CSF leak managed with LD, meningitis treated withcourse of IV abx. Hearing loss on right, for several years prior to surgery (time period). Telephone use with affected ear no Tinnitus no Balance change yes, mild, does not limit activity Falls no Ear pain/fullness no Facial numbness, twitching, weakness Yes, improved facial sensation from prior, continues with somenumbness lower lip, feels no weakness of face Denies: vertigo, dizziness Denies: severe or persistent headaches Denies: Taste change/dry eye Denies significant discomfort, edema, or pain at the incision site. Denies swelling or fluid leak from incision, ear, or nose. ROS: See HPI above. Patient further denies fevers, night sweats, unexplained weight change, anorexia, fatigue. PE: Constitutional: Appears well in NAD. Well-nourished, grooming and dress appropriate to situation. Normal EAC and TM w/ excellent mobility and no middle ear disease. fistula test negative, normal landmarks Ocular Exam: No spontaneous or gaze evoked nystagmus, EOMI with smooth pursuit Eyes Closed Rhomberg - stable Tandem Rhomberg - stable for 10 - 20 sec Tandem Gait - able to walk 5 ft with pivot and return with minimal or no errors Fukuda Test - stable without drift The following imaging studies were reviewed by me: Post-operative change seen in the right IAC. Linear enhancement alomost completely resolved. No evidence of tumor recurrence/residual. The following audiological studies were reviewed by me: mild to mod high Hz SNHL Assessment: S/p acoustic neuroma resection. Doing well. 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 I have reviewed the hearing loss with the patient in detail with diagrams. I do not find any concerning physical findings. I see no contraindication to trial of hearing amplification and have discussed the benefits and limitations of amplification with the patient. I would recommend a RTC in approximately one year with an MRI and AE. 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
--- OUTSIDE RECORDS SUMMARY | 2023-10-16 15:19 | XMS_ITS | Encounter Summary ---
Author Organization [facility] [place] [address] Care Team Providers Care Cuff Setter Name Role Phone Elizabeth Armenta MD Primary Care Provider [phone] Reason for Visit * Reason Comments Follow-up Encounter Details Date Type Department Care Team ([facility] st Contact Info) Description 05/20/2016 2:30 PM EST Office [place] [address] Norman Aguilera MD [facility] [address] Right acoustic neuroma Social History Tobacco Use [...] Sign Reading Time Taken Comments Blood Pressure 155/89 05/20/2016 2:20 PM EST Pulse 85 05/20/2016 2:20 PM EST Temperature - - Respiratory Rate - - Oxygen Saturation - - Inhaled Oxygen Concentration - - Weight 59.9 kg (132 lb) 05/20/2016 2:20 PM EST Height 162.6 cm (5' 4) 05/20/2016 2:20 PM EST Body Mass Index 22.66 05/20/2016 2:20 PM EST documented in this encounter Progress Notes * Jeri Burnette, ROLLED SEAT TRIMMER - 05/20/2016 2:30 PM EST HPI: Patient is seen in the Acoustic Neuroma Clinic in follow up for large right acoustic neuroma. Patient had surgical resection 03/03/16. Surgical approach retrosigmoid, by (s) Andie and Ale. Post-op symptoms HBII facial weakness, CSF leak managed with LD, meningitis treated with course of IV abx. Last seen 04/07/16. Hearing loss on right, for several years [...] Well-nourished, grooming and dress appropriate to situation. Neurological: Pupils equal and reactive, EOM full without nystagmus, palate and tongue midline. Facial function House-Brackmann Grade 1. Hitzelberger not tested. Strength 5/5 bilaterally UE/LE. Finger to nose is smooth and accurate, REX's intact. Gait narrow-based and smooth. Romberg stable. Tandem stance stable Tandem walk 2 errors Fukuda right drift Normal EAC and TM w/ excellent mobility and no middle ear disease. normal landmarks MRI from today reviewed by me personally. Post-operative change seen in the right IAC with linear enhancement seen along the operative site. No evidence of tumor recurrence/residual. Audiogram from today indicates profound hearing loss in the affected ear. Speech recognition score is unable to be tested. Prior audiogram from 12/04/15 showed severe SNHL with 0% speech recognition score. Contralateral hearing is intact. Assessment: S/p acoustic neuroma resection. We have discussed the post-operative course and expected recovery with regard to hearing, facial function, and balance. We discussed compensatory techniques, vestibular rehabilitation, and hearing augmentation options. We emphasized the low risk of recurrence and the course of follow-up with MRI. Dong well with recovery,. Discussed unilateral hearing loss and rehab options. Written information provided. She will contact us if she desires a hearing aid selection appointment. Also discussed options for vestibular rehab. She feels she is functioning well in this regard and does not currently desire additional intervention. Discussed that if she feels her balance is not sufficient as she progresses her activity, we can arrange for vestibular rehab locally ([place]). P: Repeat MRI and audiogram in 12 months. Patient knows to call with any worsening of hearing symptoms, balance, ear pain or pressure, facial function, in the interim. I have discussed the case with Jeri Burnette, reviewed the pertinent details in the chart, interviewed and examined the patient. I agree with the documented history, exam findings and management plan.She is doing well and her MRI scan is c/w post op changes. RTC 1 yr with MRI and AE Norman Aguilera MD [phone] documented in this encounter Plan of Treatment Not on file documented as of this encounter Visit Diagnoses Diagnosis Right acoustic neuroma Benign neoplasm of cranial nerves documented in this encounter Care Teams Cuff Setter Relationship Specialty Start Date End Date Elizabeth Armenta MD [facility] [address] [place] [address] PCP - General 08/22/14 01/12/21 documented as of this encounter
--- OUTSIDE RECORDS SUMMARY | 2023-10-16 15:19 | XMS_ITS | Encounter Summary ---
Author Organization [facility] [place] [address] Care Team Providers Care Bioinformatics Specialist Name Role Phone Keena Baca APRN Primary Care Provider [phone] Reason for Visit * Reason Comments Follow-up * Consultation (Routine) - Closed Specialty Diagnoses / Procedures Referred By Nancy mendez Referred To Contact Dermatology Diagnoses Disorder of the skin and subcutaneous tissue, unspecified Skin Lesion Procedures Consult Keena Baca APRN [address] [place] [address] [facility] [address] [place] [address] Referral ID Status Reason Start Date Expiration Date Visits Re quested Visits Authorized [id number] Closed 11/13/2020 11/13/2021 1 1 Encounter Details Date Type Department Care Team ([facility] st Contact Info) Description 01/13/2021 1:20 PM EDT Office Visit Dermatology at [facility] [address] [place] [id number] Ashley Yeager MD [facility] [place] [address] Neoplasm of uncertain behavior Social History Tobacco Use Types Packs/Day Years [...] as of this encounter Progress Notes * Ashley Mitchell CMA - 01/13/2021 1:20 PM EDT * Fariba Malik MD - 01/13/2021 1:20 PM EDT I directly supervised the Dermatology resident during this office visit. The resident presented thehistory and physical exam to me. I then saw and examined this patient with the resident. We reviewed the history and pertinent details and I confirmed the physical findings. I agree with the details of the history and physical exam as documented in the resident's note. FARIBA MALIK MD Staff Physician * Ashley Yeagre - 01/13/2021 1:20 PM EDT Images from the original note were not included. DEPARTMENT OF DERMATOLOGY Medical Dermatology Clinic Note Provider: Ashley Yeager MD Patient's preferred name Brenda Preferred contact method for results [x]Phone [x]myD-H []Letter Detailed phone message OK? Yes Are there any other people with whom we may discuss your care? Marianna Meade Past Medical History Date, location, treatment Melanoma No Dysplastic nevi No SCC Yes? BCC Yes? Patient states that margins were unclear (right leg). AKs No UV Exposure & Protection Sun Protection: No, stays out of the sun. No Hx of blistering sun perales Other relevant past medical history None Family History Details Melanoma No NMSC No Other relevant family history No Social History Occupation: retired Hobbies: photography, knitting, spending time with grand kids. Other: Pre-Procedure Questions Details Allergy to lidocaine, epinephrine, Dermabond, chlorhexidine, or adhesives Tegaderm with silver Bleeding disorder or blood thinners No Implanted devices (Pacemaker, defibrillator, deep brain stimulator, cochlear implant) No History of Present Illness: Latisha Felipe is a 75 y.o. Patient is referred to the clinic at the request of Keena Baca for a focused exam with the following concerns: - Lesion on the Left knuckle. Started freezing it off a little over a year ago. Used OTC wart medication about 5 times; but found out after the label said only to use twice. - Area has pain if it is hit, but no pain otherwise. Gets itchy as it starts to heal. Review of Systems: General: Feeling well. Skin: No other skin concerns. Medications: Reviewed in eD-H Allergies: Reviewed in eD-H Skin Examination: Focused skin examination of the left hand was normal with the exception of the findings below. Assessment/Plan #. Neoplasm of Uncertain Behavior - On the left dorsal hand there is a 1 cm scaly eroded plaque (Figure 1) DDx: Favor SCC - After review of risks and benefits, joint decision made to pursue shave biopsy today. Procedure: Skin biopsy by shave technique Location: left dorsal hand Discussed indications for procedure and expectations including risks and benefits. Verbal consent obtained. Skin prep with alcohol. Local anesthesia with 1% lidocaine, 1/100,000 epinephrine. A sampleof the lesion was removed by shave technique to the level of the dermis and submitted to Pathology.Hemostasis obtained. There were no complications; the patient tolerated the procedure well. The wound was dressed. Post-procedure expectations, wound care and activity restrictions were reviewed. Follow-up based on pathology results. Figure 1 Photo(s) taken and charted with patient's verbal consent. Other: ??? N/A RTC: Pending pathology []Note routed to board of education secretary []Recall placed in scheduling system []Appointment scheduled at checkout Scribe attestation: Ashley Mitchell CMA and Yakelin Hurt LPN has performed the documentation for this encounter in the presence of and acting as a scribe for Ashley Yeager MD. I performed the above scribed service and agree with the accuracy of the documentation in this encounter. Reviewed and signed by: Ashley Yeager MD Dermatology [facility] Patient seen and evaluated with staff campground hand: Fariba Malik MD Department of Dermatology [facility] * Ashley Yeager - 01/13/2021 1:20 PM EDT DERMATOLOGY TELEPHONE NOTE Latisha Felipe 01/22/2021 [id number] Reason for call: Discuss biopsy results I called the patient this afternoon to discuss the results of her recent biopsy: Left dorsal hand, skin shave biopsy: - ??Invasive squamous cell carcinoma, ??well differentiated, present at the peripheral and deep specimen edges We discussed the recommendation for Mohs surgery. Referral placed Ashley Yeager MD Dermatology Resident documented in this encounter Plan of Treatment Scheduled Orders Name Type Priority Associated Diagnoses Orde r Schedule Pathology Order Update Pathology/Cytol ogy Routine Neoplasm of uncertain behavior Ordered: 01/13/2021 documented as of this encounter Procedures Procedure Name Priority Date/Time Associated Diagnosis Comments SPECIMEN TO PATHOLOGY Routine 01/13/2021 2:05 PM EDT Neoplasm of uncertain behavior SURGICAL PATHOLOGY REPORT Routine 01/13/2021 1:46 PM EDT documented in this encounter Results * Specimen to Pathology (01/13/2021 2:05 PM EDT) AP Specimen 01/13/2021 2:05 PM EDT 01/13/2021 2:05 PM EDT Narrative [facility] - 01/13/2021 2:05 PM EDT Specimen requisition ordered. ??Separate Pathology report to follow Fariba Malik MD PATHOLOGY/CYTOLOGY ORDERABLES [facility] [place] [address] * Surgical Pathology Report (01/13/2021 1:46 PM EDT) Surgical Pathology Report [id number] ? Location: [facility] The signing pathologist has (i) examined the relevant preparation(s) for the specimen(s) and (ii) rendered or confirmed the diagnosis(es). . ?Surgical Pathology DIAGNOSIS Left dorsal hand, skin shave biopsy: - ??Invasive squamous cell carcinoma, ??well differentiated, present at the peripheral and deep specimen edges Electronically signed by: ?Raquel ENCINAS, Trevor Barillas Verified: ??01/19/2021 12:18 ??Dermatopatholo gist Performed at: ??-[facility] Dept. of Pathology, [place], [place] SPECIMEN(S) SUBMITTED A - Left dorsal hand, skin shave biopsy (2) CLINICAL INFORMATION Favor SCC: 1 cm scaly eroded plaque SPECIMEN PROCESSING A - Labeled/Fixative : Left dorsal hand, formalin. Quantity/Size: ??Two, 1.0 x 0.8 cm and 1.3 x 0.9 cm. Tissue Description: Thickened, crusted and eroded pink-white skin shave fragments. Sections/Process ing: Entirely submitted in 2 cassettes as follows: ?A1: ??Smaller fragment, inked and trisected ?A2: ??Larger fragment, inked and quadrasected ??ajw [facility] 01/13/2021 1:46 PM EDT Ashley Yeager MD PATHOLOGY/CYTOLOGY O ABDIRAHMANERAARAMIS [facility] [place] [address] documented in this encounter Visit Diagnoses Diagnosis Neoplasm of uncertain behavior Neoplasm of uncertain behavior, site unspecified documented in this encounter Care Teams Bioinformatics Specialist Relationship Specialty Start Date End Date Keena Baca, RESIDENCY COORDINATOR [address] [facility] [facility] [place] [address] PCP - General Family Medicine 01/13/21 documented as of this encounter
--- OUTSIDE RECORDS SUMMARY | 2023-10-16 15:20 | XMS_ITS | Encounter Summary ---
Author Organization [facility] [place] [address] Care Team Providers Care Risk Compliance Analyst Name Role Phone Elizabeth Armenta MD Primary Care Provider Reason for Visit * Auth/Cert Specialty Diagnoses / Procedures Referred By Nancy mendez Referred To Contact Diagnoses Pancreatic Cyst Procedures PRO ENDOSCOPIC US EXAM, ESOPH UPPER EUS- ENDOSCOPIC ULTRASOUND Referral ID Status Reason Start Date Expiration Date Visits Re quested Visits Authorized [id number] 1 1 Encounter Details Date Type Department Care Team (Late st Contact Info) Description 02/09/2016 3:00 PM EST - 02/09/2016 4:00 PM EST Surgery [place] [address] Rigoberto Angel MD [facility] DR GASTROENTEROLOGY [place] [address] UPPER EUS- ENDOSCOPIC ULTRASOUND (WRVU 3.47) Social History Tobacco Use Types Packs/Day Years [...] Sign Reading Time Taken Comments Blood Pressure 148/81 02/09/2016 3:27 PM EST Pulse 99 02/09/2016 3:25 PM EST Temperature - - Respiratory Rate 18 02/09/2016 3:25 PM EST Oxygen Saturation 95% 02/09/2016 3:25 PM EST Inhaled Oxygen Concentration - - Weight - - Height - - Body Mass Index - - documented in this encounter Discharge Instructions * Patient Instructions* Rigoberto Angel MD - 02/09/2016 5:14 PM EST Please see Recommendations in the Provation procedure report which is documented in the procedural note in E-[facility]. documented in this encounter Medications at Time of Discharge Medication Sig Dispensed Refills Start Date End Date albuterol (PROVENTIL HFA;VENTOLIN HFA;PROAIR) 90 mcg/actuation HFA Aerosol Inhaler Inhale 2 puffs into the lungs every 4 hours as needed for Wheezing. Use with spacer FLUoxetine (PROZAC) 20 mg Tablet Take 40 mg by mouth daily. losartan-hydrochlorothi azide (HYZAAR) 100-25 mg Tablet Take 0.5 tablets by mouth daily. Reported on 04/07/2016 KRILL OIL ORAL Take by mouth daily. FOLIC ACID/MULTIVIT-MIN/LUTEI N (CENTRUM SILVER ORAL) Take by mouth daily. acetaminophen (TYLENOL) 325 mg Tablet Take 2 tablets by mouth every 4 hours. 30 tablet 1 03/06/2016 03/23/2016 dexamethasone (DECADRON) 1 mg Tablet Take 4 tablets by mouth See Admin Instructions. Taper as follows: 4 tab BID x 3d, 2 tab BID x 3d, 1 tab BID x 3d, 1 tab daily x 3d, Stop 45 tablet 03/06/2016 03/23/2016 famotidine (PEPCID) 20 mg Tablet Take 1 tablet by mouth every 12 hours. 30 tablet 12 03/06/2016 03/23/2016 oxyCODONE (ROXICODONE) 5 mg Tablet Take 1 tablet by mouth every 4 hours as needed for Pain. 30 tablet 03/06/2016 03/23/2016 amLODIPine (NORVASC) 10 mg Tablet Take 10 mg by mouth daily. Reported on 04/07/2016 05/20/2016 LORazepam (ATIVAN) 0.5 mg Tablet Take 0.5 mg by mouth every 6 hours as needed for Anxiety. Reported on 05/20/2016 04/05/2021 CALCIUM CARBONATE/VITAMIN D3 (CALTRATE 600 + D ORAL) Take by mouth daily. 04/05/2021 documented as of this encounter H&P Notes * Quang Kat MD - 02/09/2016 3:44 PM EST Patient Name: Latisha Felipe Patient Age: 70 y.o. Birthdate: 1945 Admit date: 02/09/2016 Attending Physician: Farhan Scales MD . Gastroenterology and Hepatology Pre-Procedure History and Physical Exam Procedure: EUS: Indication: pancreatic cyst Patient Active Problem List Diagnosis Code ??? 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 ASA 2 - Patient with mild systemic disease with no functional limitations Sedation Plan: anesthesia Risks and benefits of the procedure explained to the patient. Consent signed. documented in this encounter Miscellaneous Notes * Op Note - Rigoberto Angel MD - 02/09/2016 5:14 PM EST [facility] Operative Note Patient Name: Latisha Felipe : [id number] MR#: [id number] Case Date: 02/09/2016 Surgeon: Surgeon(s) and Role: * Rigoberto Angel MD - Primary * Quang Kat MD - Fellow Preoperative diagnosis: Pancreatic Cyst Postoperative diagnosis: * No post-op diagnosis entered * Procedure(s): UPPER EUS- ENDOSCOPIC ULTRASOUND Anesthesia: MAC Full procedure note is documented under the Procedure section of [facility]. documented in this encounter Plan of Treatment Not on file documented as of this encounter Procedures Procedure Name Priority Date/Time Associated Diagnosis Comments UPPER EUS- ENDOSCOPIC ULTRASOUND (WRVU 3.47) 02/09/2016 4:17 PM EST Pancreatic Cyst UPPER EUS-ENDOSCOPIC ULTRASOUND Routine 02/09/2016 3:45 PM EST documented in this encounter Results * UPPER EUS-ENDOSCOPIC ULTRASOUND (02/09/2016 3:45 PM EST) UPPER ENDOSCOPIC ULTRASOUND [facility] Endoscopy ___ Procedure Date: 02/09/2016 3:45 PM ? Patient Name: Latisha Felipe ? N: [id number] ? Date of : 1945 ? Age: 70 ? Order #: [id number] ? Instrument Name: [id number] ? ___ Procedure: ? Upper EUS Indications: ? Abnormal ultrasound of the abdomen, ? cyst in pancreas Providers: ? Rigoberto Angel MD, Quang Stearns ? MD North, Manju Hall RN, Raquel ? Wing Mathews, Sports Medicine Physician Referring MD: ?Elizabeth Armenta MD Medicines: ? Propofol per Anesthesia Complications: ? No immediate complications. ___ Procedure: ? Pre-Anesthesia Assessment: ? - Prior to the procedure, a History ? and Physical was performed, and ? patient medications, allergies and ? sensitivities were reviewed. The ? patient's tolerance of previous ? anesthesia was reviewed. ? - The risks and benefits of the ? procedure and the sedation options ? and risks were discussed with the ? patient. All questions were answered ? and informed consent was obtained. ? - ASA Grade Assessment: II - A ? patient with mild systemic disease. ? - Using IV propofol under the ? supervision of an anesthesiologist ? was determined to be medically ? necessary for this procedure based on ? age 65 or older and complex procedure ? (ERCP, EUS). ? The procedure, indications, benefits, ? risks and alternatives were explained ? to the patient. Specifically ? discussed were potential ? complications including, but not ? limited to, bleeding, perforation, ? infection, missing a cancer, and ? adverse medication reactions.The ? Endosonoscope was introduced through ? the mouth, and advanced to the second ? part of duodenum. The patient ? tolerated the procedure well. ? Findings: ? Endoscopic Finding : ? The examined esophagus was endoscopically normal. ? The entire examined stomach was endoscopically normal. ? The examined duodenum was endoscopically normal. ? Endosonographic Finding : ? Pancreatic parenchymal abnormalities were noted in ? the periampullary pancreatic head. These consisted of ? hyperechoic strands. The duct was ectatic in the head ? then normal in caliber in body and tail. There was a ? 5 mm anechoic cyst in the head. ? An anechoic lesion suggestive of a cyst was ? identified in the pancreatic body adjacent to the ? duct and in the pancreatic tail. The body lesion ? measured 11 mm in maximal cross-sectional diameter. ? There was a single compartment without septae. The ? outer wall of the lesion was thin. There was no ? associated mass. There was no internal debris within ? the fluid-filled cavity. The cyst in the tail ? measured 8 mm and was bilobed. ? There was no sign of significant endosonographic ? abnormality in the common bile duct. The maximum ? diameter of the duct was 6 mm. ? There was no sign of significant endosonographic ? abnormality in the gallbladder. ? The visualized portions of the liver were diffusely ? echogenic (limited exam). There were no masses or ? ductal dilation. ? No lymphadenopathy seen. ? 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 low risk features. ? - Non-specific pancreatic parenchymal ? and ductal changes in the head are ? benign and may be age-related. ? - Fatty liver. Recommendation: ?- Observe patient's clinical course. ? - Would manage cysts conservatively ? but would consider f/up imaging with ? CT scan or MRI in 12 mos to r/o ? interval change. ? - The attending physician listed ? above was present for the entire ? procedure. ? Attending Participation: ? I was present and participated during the entire ? procedure, including non-gardner portions. ? Rigoberto Angel MD 02/09/2016 5:14:19 PM This report has been signed electronically. Number of Addenda: 0 Note Initiated On: 02/09/2016 3:45 PM PROVATION 02/09/2016 3:45 PM EST Elizabeth Armenta MD GENERAL SURGICAL ORD ERABLES PROVATION documented in this encounter Visit Diagnoses Not on filedocumented in this encounter Administered Medications Inactive Administered Medications - up to 3 most recent administrations Medication Order MAR Action Action Date Dose Rate Site lactated ringers infusion 50 mL/hr, Intravenous, CONTINUOUS, Starting on Mon02/09/16 at 1545, Until Mon02/09/16 at 1758, Endoscopy (Day of Procedure) New Bag 02/09/2016 3:45 PM EST 50 mL/hr 50 mL/hr documented in this encounter Active and Recently Administered Medications Due to Daylight Saving Time, this section may contain times in both EDT and EST. Continuous Medication Order 02/07/2016 02/08/2016 02/09/2016 lactated ringers infusion (CANCELED) 50 mL/hr, Intravenous, CONTINUOUS, Starting on Mon02/09/16 at 1545, Until Mon02/09/16 at 1758, Endoscopy (Day of Procedure) 1545 (New Bag - Prov ider: Gaye Sewell RN)1642 (Anesthesia Volume Adjustment - Provider: Erin Hazel CRNA) documented in this encounter Care Teams Risk Compliance Analyst Relationship Specialty Start Date End Date Elizabeth Armenta MD [facility] [address] [place] [address] PCP - General 08/22/14 01/12/21 documented as of this encounter
--- OUTSIDE RECORDS SUMMARY | 2023-10-16 15:20 | XMS_ITS | Encounter Summary ---
[place] [address] Care Team Providers Care Snake Charmer Name Role Phone Elizabeth Armenta MD Primary Care Provider [phone] Encounter Details Date Type Department Care Team (Late st Contact Info) Description 03/11/2016 Telephone [place] [id number] Ariela Jiang RN Social History Tobacco Use Types Packs/Day [...] encounter Miscellaneous Notes * Telephone Encounter - Ariela Jiang RN - 03/11/2016 10:25 AM EST Latisha is a 70 year old female status post Craniectomy/excision of a CV angle tumor on 03/03/[address] Aguilera and . 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 She was advised to limit activity and she has had no further reports of clear drainage from her nares. Appetite: Improving Latisha is taking stool softener and reports having a soft BM today without straining. ?? Pain: Controlled with Tylenol and Roxicodone 5 mg tabs (she has been on average 1-2 per day, usually later PM). She reports she only has 4 Roxicodone tabs left and worries about running out over the weekend. She cannot drive and lives in [place] (about 1.5 hours away) She would not be able to pick-up RX Plan: Elizabeth Armenta MD PCP will order Roxicodone 5 mg tabs 1 tab every 4-6 hrs PRN pain # 10 (this had been already arranged by neurosurgery team) Sutures to be removed by neurosurgery on 03/17/16 Latisha inquired if she could take Ibuprofen at this point. POD # 8. Ok'D by JASMIN Tavarez (neurosurg) and DR. Aguilera (ENT). Call ENT or neurosurgery if clear drainage recurs in a steady stream, extreme headache, dizziness, impaired vision or any other potential worrisome signs. Latisha voices good understanding and is in agreement with plan of care. ? documented in this encounter Plan of Treatment Not on file documented as of this encounter Visit Diagnoses Not on filedocumented in this encounter Care Teams Snake Charmer Relationship Specialty Start Date End Date Elizabeth Armenta MD [facility] [address] [place] [address] PCP - General 08/22/14 01/12/21 documented as of this encounter
--- OUTSIDE RECORDS SUMMARY | 2023-10-16 15:20 | XMS_ITS | Encounter Summary ---
Author Organization [facility] [place] [place] [address] Care Team Providers Care Shuttle Operator Name Role Phone Elizabeth Armenta MD Primary Care Provider [phone] Reason for Referral * Consultation (Routine) - Closed Specialty Diagnoses / Procedures Referred By Contac t Referred To Contact Infectious Diseases Diagnoses CSF leak Meningitis Acoustic neuroma Ralph Arguello MD [facility] [place] [address] Ralph Arguello MD [facility] [place] [address] Referral ID Status Reason Start Date Expiration Date V isits Requested Visits Authorized [id number] Closed Assume Subset of Care 03/23/2016 03/23/2017 1 1 Reason for Visit * Reason Comments Super SIRS Criteria Headache Post-op Problem * Auth/Cert Specialty Diagnoses / Procedures Referred By Contac t Referred To Contact Diagnoses CSF leak Procedures EMERGENCY IPI Referral ID Status Reason Start Date Expiration Date Visits Re quested Visits Authorized [id number] 1 1 Encounter Details Date Type Department Care Team (Latest Contact Info) Description 03/14/2016 10:10 PM EST - 03/23/2016 6:24 PM EST Hospital Encounter [address] [place] [address] Shiva Sewell MD [facility] [place] [address] Iván Chaves MD [facility] [place] [address] CSF leak; Meningitis; Acoustic neuroma; Facial pain; Cervicalgia; Pneumocephalus; Personal history of unspecified leukemia Discharge Disposition: Home with VNA Social History Tobacco Use Types Packs/Day Years [...] Sign Reading Time Taken Comments Blood Pressure 146/88 03/23/2016 4:02 PM EST Pulse 90 03/23/2016 4:02 PM EST Temperature 36.3 ??C (97.3 ??F) 03/23/2016 4:02 PM ES T Respiratory Rate 18 03/23/2016 4:02 PM EST Oxygen Saturation 96% 03/23/2016 4:02 PM EST Inhaled Oxygen Concentration - - Weight 63.3 kg (139 lb 8.8 oz) 03/15/2016 3:43 P M EST Height 162.6 cm (5' 4) 03/15/2016 3:43 PM EST Body Mass Index 23.95 03/15/2016 3:43 PM EST documented in this encounter Discharge Summaries * Kelley Maciel APRN - 03/23/2016 10:09 AM EST Inpatient - Discharge Summary Patient Name: Latisha Felipe Patient Age: 70 y.o. Birthdate: 1945 Admit date: 03/14/2016 Discharge date and time: 03/23/2016 Attending Physician: Iván Chaves MD Discharge Diagnoses (Hospital Problems) and Secondary Diagnoses (Chronic Problems): Active Hospital Problems Diagnosis ??? CSF leak ??? Meningitis ??? Hyponatremia Resolved Hospital Problems Diagnosis Date Resolved No resolved problems to display. Active Non-Hospital Problems Diagnosis ??? Acoustic neuroma ??? CPA (cerebellopontine angle) tumor Operations/Major Procedures: 03/15/2016: Lumbar drain placement for CSF diversion History of Presentation: Asked by Shiva Sewell MD to see Latisha Felipe, a 70 y.o. female with PMH significant for a right sided acoustic neuroma (s/p resection 03/03) regarding evaluation and management of possible post-op infection and CSF leak. The patient was recovering at home from her surgery when she gradually developed increasing headaches, neck stiffness and fevers. The patient also called the clinic a few days ago and reported that she experienced a couple of clear drops of fluid from her nares when she bent forward. The patient was taken to an OSH where she was found to have an elevated WBC and a CT showing pneumocephalus. She was then transferred to [facility] for further management. Hospital Course: Patient was admitted to [facility] on 03/14/16. Lumbar drain was placed for CSF diversion. She was started on broad-spectrum antibiotics for empiric treatment of meningitis. Hypertonic saline was started to correct her hyponatremia. Her final cultures were negative but she clinically improved on antibiotics. Lumbar drain was challenged and then removed on 03/21. PICC line was placed. Infectious Diseaseteam was consulted. Her antibiotics were narrowed. Decision has been made to continue empiric treatment for a total of 14 days. She is now felt stable for discharge to home with VNA services. Important Studies and Lab Data: Labs: Lab Results Component Value Date/Time WBC 20.4 (H) 03/23/2016 04:26 AM HGB 12.2 03/23/2016 04:26 AM HCT 36.4 03/23/2016 04:26 AM PLATELET 218 03/23/2016 04:26 AM NA 138 03/23/2016 04:26 AM K 3.9 03/23/2016 04:26 AM CL 97 (L) 03/23/2016 04:26 AM CO2 25 03/23/2016 04:26 AM BUN 12 03/23/2016 04:26 AM CREATININE 0.62 (L) 03/23/2016 04:26 AM Studies: MRI brain with/without contrast, 03/16/16: FINDINGS: Postsurgical changes from RIGHT IAC/CP angle mass resection are noted, including small subdural collections. Fat graft material is seen at the IAC. No intracranial hemorrhage, mass or mass effect. There is mild enhancement about the surface of the brainstem and cerebellum. No focus of restricted diffusion. Scattered foci of susceptibility artifact likely due to pneumocephalus better seen on prior CT. Unchanged punctate focus of FLAIR hyperintensity within the white matter, nonspecificfinding, most commonly due to small vessel ischemic changes. The ventricles and basal cisterns are within normal limits. The cerebral vessels are within normal limits. No bone marrow signal abnormalities. IMPRESSION: 1. Mild leptomeningeal enhancement about the posterior fossa. Differential diagnosis includes postoperative inflammatory changes and meningitis. No evidence of intracranial abscess. 2. Persistent pneumocephalus which may be postoperative but can be seen in CSF leak. Pending Studies and Lab Data: None Discharge Conditions/Prognosis: Stable Discharge to: Home with VNA Discharge Medications: Your Medications New Medications Dose Details cefTRIAXone 2 gram/50 mL Pgbk Commonly known as: ROCEPHIN Inject 50 mLs into the vein every 12 hours for 6 days. 2 g Quantity: 600 mL Refills: 0 cyclobenzaprine 10 mg Tab Commonly known as: FLEXERIL Take 1 tablet by mouth 3 times daily as needed for Muscle spasms. 10 mg Quantity: 20 tablet Refills: 0 metroNIDAZOLE 500 mg Tab Commonly known as: FLAGYL Take 1 tablet by mouth 3 times daily for 6 days. 500 mg Quantity: 18 tablet Refills: 0 Continued medications with new dosing Dose Details acetaminophen 325 mg Tab Commonly known as: TYLENOL Take 2 tablets by mouth every 4 hours as needed for Pain or Fever. What changed: - when to take this - reasons to take this 650 mg Quantity: 30 tablet Refills: 1 oxyCODONE 5 mg Tab Commonly known as: ROXICODONE Take 1-2 tablets by mouth every 6 hours as needed for Pain. What changed: - how much to take - when to take this 5-10 mg Quantity: 20 tablet Refills: 0 Continued medications, unchanged Dose Details albuterol 90 mcg/actuation Hfaa Commonly known as: PROVENTIL HFA;VENTOLIN HFA;PROAIR Inhale 2 puffs into the lungs every 4 hours as needed for Wheezing. Use with spacer 2 puff Refills: 0 amLODIPine 10 mg Tab Commonly known as: NORVASC Take 10 mg by mouth daily. 10 mg Refills: 0 CALTRATE 600 + D ORAL Take by mouth daily. Refills: 0 CENTRUM SILVER ORAL Take by mouth daily. Refills: 0 FLUoxetine 20 mg Tab Commonly known as: PROzac Take 40 mg by mouth daily. 40 mg Refills: 0 KRILL OIL ORAL Take by mouth daily. Refills: 0 LORazepam 0.5 mg Tab Commonly known as: ATIVAN Take 0.5 mg by mouth every 6 hours as needed for Anxiety. 0.5 mg Refills: 0 losartan-hydrochlorothiazide 100-25 mg Tab Commonly known as: HYZAAR Take 1 tablet by mouth daily. 1 tablet Refills: 0 polyethylene glycol 17 gram Pwpk Commonly known as: MIRALAX Take 17 g by mouth daily as needed. 17 g Quantity: 14 each Refills: 0 STOPPED Medications dexamethasone 1 mg Tab Commonly known as: DECADRON famotidine 20 mg Tab Commonly known as: PEPCID Updated Allergies/ADRs: Allergies Allergen Reactions ??? Sulfa (Sulfonamide Antibiotics) Rash HIGH FEVER Follow-up Recommendations for Providers: INFECTIOUS DISEASE RECOMMENDATION - Continue ceftriaxone 2g IV q12hr - Continue metronidazole 500mg PO TID - Duration 14 days in total--03/15 to 03/29 - Weekly CBC, CMP for drug monitoring Instructions Given to Patient at Discharge: Patient Instructions ACTIVITY: - You may shower/bathe. Have someone near in case you need help. - Increase your activity as tolerated - You may tire easily, so frequent rest periods may be necessary - No heavy lifting for first two weeks DIET: - Resume your usual diet. Fresh fruit, vegetables and fiber containing foods are recommended. - Stool softeners, or mild laxatives may be used as needed. COMFORT: - It is normal to have some soreness in/around your incision. - Take your pain medication as ordered/needed - Taper use of pain medication as pain lessens. CALL YOUR DOCTOR FOR: - Fever over 101 F - Redness, swelling, increasing pain or drainage from your incision. - Worsening headaches - Persistent clear nasal dripping - Unsteadiness when walking/new weakness - Slurred speech - Visual changes - Drowsiness/confusion - Nausea/vomiting - Convulsions/seizures - Pain not relieved with mild medication Activity level: As tolerated Diet: Resume your regular diet Driving: OK to resume driving in two weeks Shower/Bath: OK Wound Care: None. The suture on your back from the lumbar drain is absorbable and will gradually dissolve on its own. Follow up Appointments: Please follow up in Neurosurgery Clinic and Infectious Disease clinic in 2 weeks. An appointment will be scheduled for you. Arrangements for VNA/home care: See Below IMPORTANT PHONE NUMBERS: Monday - Monday (8AM to 5PM): ?? Outpatient nurse - Pat Mcgowan RN: ?? Outpatient nurse practitioner - Deidra Estrada MINERAL ENGINEER: ?? Inpatient associate providers - Quang Lakhani PA-C, Quang Armas PA-C, Kelley Maciel, MINERAL ENGINEER: ?? Neurosurgeon - Dr. Chaves: After office hours (5PM to 8AM) and on weekends you can reach neurosurgery by calling the hospital cut out machine operator at and ask for the Neurosurgery resident on-call Neurology/Neurosugery (5W) and Neuro Special Care Unit (NSCU): CC: Elizabeth Armenta MD Electronically Signed By: KELLEY MACIEL APRN 03/23/2016 To-Do List Future Orders Complete By Expires OPAT: Order / Recommendation for Post Discharge IV Antibiotic Management [NXB380 CPT(R)] As directed Process Instructions: If no progress note charted, please enter Clinical details in comments. Scheduling Instructions: Comments: Please Fax all results to: OPAT Program Infectious Disease Section [facility] [place], [place] [address] FAX: Line care instructions per [facility] OPAT Program protocol. After hours, please contact the Infectious Disease Physician concrete puddler at . If this order was signed greater than 72 hours prior to [facility] discharge, please call to confirm the accuracy of this order. Questions: ID Diagnosis: Bacterial Memingitis; CSF Leak Microorganisms being treated: NGTD Antibiotic Allergies: Sulfa Antibiotic (one line for each ABx): Ceftriaxone 2 gm IV q 12 hr Metronidazole 500 mg PO q 8 hr Start date: 03/15/2016 Anticipated stop date: 03/29/2016 Labs: Every Monday: CBC, CMP Last documented weight (kg): 63.3 kg (139 lb 8.8 oz) Last documented height (cm): 162.6 cm (5' 4) Responsible Attending: Ralph Arguello MD Referral for Outpatient Antibiotics [[id number] CPT(R)] As directed Process Instructions: Scheduling Instructions: Patient will be going to [facility]: [address] [place] [address] Questions: Vendor / contact information: [facility] Patient location post discharge: [facility] Service requested: IV ABX & PICC Line care Start date: 03/24/2016 Responsible MD post discharge contact info: PCP Referral to Home Health - at DISCHARGE [[id number] CPT(R)] As directed Process Instructions: Scheduling Instructions: DOCUMENTATION FOR VNA SERVICES (INCLUDING THOSE PATIENTS WITH MEDICARE COVERAGE REQUIRING HOME VNA SERVICES AND/OR HOSPICE SERVICES) PATIENT'S LOCATION: Latisha Felipe [address] [place] [address] Physician Liaison's Name: Patient In discussion with the attending physician, it is certified that this patient is under their care and that they, or a Nurse Practitioner,Clinical Nurse specialist or Physician Senior Administrator Support who is working directly with them, had a face to face encounter that meets the physician face to face encounter requirements with this patient on 03/23/2016 The encounter with the patient was in whole, or in part, for the following medical condition, whichis the primary reason for home health care services: s/p CSF Leak In discussion with the provider, it is certified that, based on their findings, the following services are medically necessary for home health services. To provide the following care/treatments with the clinical findings supporting the need for services as follows: HOME CARE ORDERS: RN ORDERS:Assess wound or incision, vital signs, cardiopulmonary status, nutrition, hydration, elimination, meds effectiveness and management; reinforce education re health issues. Line care instructions per [facility] OPAT program protocol. HOME HEALTH CARE AGENCY: [facility]. PHONE: [phone] FAX: [phone] Infusion Company: [facility] Start of care: For 03/24 @ 0900 for 1st dose of home IV ABX FOR MEDICARE ONLY: (please delete this section if not Medicare) In discussion with the attending physician, it is certified that the clinical findings support thatthis patient is homebound because absences from home require considerable and taxing effort due to: Medically contraindicated due to immunosuppression and increased risk of infection Please note that any additional orders needs or changes will need to be obtained from this patient's PCP: Elizabeth Armenta MD [facility] [place] [address] All VNA agencies which cover the area of patient's residence have been reviewed, either verbally tejas writing, and patient/family have chosen the home health care agency noted Questions: Agency name and contact information: [facility] Patient location post discharge: [facility] What services are requested: Registered Nurse Start date: Responsible MD post discharge contact info: PCP Walker standard [EQ135 Custom] As directed Process Instructions: Scheduling Instructions: Comments: 70 y.o. 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 A letter describing our affiliations was reviewed with them and they were educated about their right to choose where referrals are placed. Patient will be going to stay with her son in [facility]. Patient requests referral to [facility] Expected date of discharge: 03/23/2016. Office of Care Management/Manager Infusion(CM) Home IV Antibiotic Therapy Referral Note. Report received from Kelley Stevens NP that patient will require continued home IV antibiotic therapy after discharge from the hospital. Met with patient/family to discuss vendor and visiting nurse choices for home IV antibiotic therapy. Reviewed Home Infusion Vendors and Home Health Agencies that serve patient???s address and accept patient???s insurance. Home Health Agency: [facility]. PHONE: [phone] FAX: [phone] Referrals sent via edischarge. Home Infusion Vendor: Patient requested referral to [facility] Referrals sent via edischarge. Diabetic Status: Patient is/is not a diabetic. IV access: 03/22/2016: A 4 Fr. single lumen Bard Power catheter was placed into the right basilic vein over a 0.018 inch guidewire using modified seldinger technique and fluoroscopy. Arm circumference was 23 cm at 2 cm above the insertion site. Final catheter length (with trimming): 35 cm ??Internal: 35 cm ??External: 0 cm Tip in SVC per DR. GIBBONS The line was not placed over a guidewire. Referral routed to the Strategic Sourcing Manager for matching with agency/vendor and to provide any required information. Chana Roger RN, BSN, [facility] Manager Infusion 5 [facility] [phone] pager#[phone] * Patient Instructions* Kelley Maciel, MINERAL ENGINEER - 03/23/2016 10:07 AM EST ACTIVITY: - You may shower/bathe. Have someone near in case you need help. - Increase your activity as tolerated - You may tire easily, so frequent rest periods may be necessary - No heavy lifting for first two weeks DIET: - Resume your usual diet. Fresh fruit, vegetables and fiber containing foods are recommended. - Stool softeners, or mild laxatives may be used as needed. COMFORT: - It is normal to have some soreness in/around your incision. - Take your pain medication as ordered/needed - Taper use of pain medication as pain lessens. CALL YOUR DOCTOR FOR: - Fever over 101 F - Redness, swelling, increasing pain or drainage from your incision. - Worsening headaches - Persistent clear nasal dripping - Unsteadiness when walking/new weakness - Slurred speech - Visual changes - Drowsiness/confusion - Nausea/vomiting - Convulsions/seizures - Pain not relieved with mild medication Activity level: As tolerated Diet: Resume your regular diet Driving: OK to resume driving in two weeks Shower/Bath: OK Wound Care: None. The suture on your back from the lumbar drain is absorbable and will gradually dissolve on its own. Follow up Appointments: Please follow up in Neurosurgery Clinic and Infectious Disease clinic in 2 weeks. An appointment will be scheduled for you. Arrangements for VNA/home care: See Below IMPORTANT PHONE NUMBERS: Monday - Monday (8AM to 5PM): ?? Outpatient nurse - Pat Mcgowan RN: ?? Outpatient nurse practitioner - Deidra Estrada, MINERAL ENGINEER: ?? Inpatient associate providers - Quang Lakhani PA-C, Quang Armas PA-C, Kelley Maciel, MINERAL ENGINEER: ?? Neurosurgeon - Dr. Chaves: After office hours (5PM to 8AM) and on weekends you can reach neurosurgery by calling the hospital cut out machine operator at and ask for the Neurosurgery resident on-call Neurology/Neurosugery (5W) and Neuro Special Care Unit (NSCU): CC: Elizabeth Armenta MD documented in this encounter Medications at Time [...] (CENTRUM SILVER ORAL) Take by mouth daily. cefTRIAXone (ROCEPHIN) 2 gram/50 mL Piggyback Inject 50 mLs into the vein every 12 hours for 6 days. 600 mL 03/23/2016 03/29/2016 metroNIDAZOLE (FLAGYL) 500 mg Tablet Take 1 tablet by mouth 3 times daily for 6 days. 18 tablet 03/23/2016 03/29/2016 cyclobenzaprine (FLEXERIL) 10 mg Tablet Take 1 tablet by mouth 3 times daily as needed for Muscle spasms. 20 tablet 03/23/2016 04/07/2016 amLODIPine (NORVASC) 10 mg Tablet Take 10 mg by mouth daily. Reported on 04/07/2016 05/20/2016 LORazepam (ATIVAN) 0.5 mg Tablet Take 0.5 mg by mouth every 6 hours as needed for Anxiety. Reported on 05/20/2016 04/05/2021 CALCIUM CARBONATE/VITAMIN D3 (CALTRATE 600 + D ORAL) Take by mouth daily. 04/05/2021 documented as of this encounter Progress Notes * Ariela Bustillo RN - 03/23/2016 6:04 PM EST Patient Name: Latisha Felipe Patient Age: 70 y.o. Birthdate: 1945 Admit date: 03/14/2016 Attending Physician: Iván Chaves MD Latisha Felipe discharged to Home by private car with son. All belongings sent with patient. PICC line in place, LD incision healing well, skin free from pressure ulcers. Discharge instructions, medications, and follow-up appointments reviewed, education provided by [facility] on howto administer antibiotic and how to care for PICC, patient instructed to moss picker prescriptions at the pharmacy, all questions answered. VNA paperwork faxed. Patient instructed to call with concerns. * Chana Roger RN - 03/23/2016 10:47 AM EST The patient/customer loyalty representative has been provided a list of Home Health Agencies/DME vendors which servetheir preferred geographic area. A letter describing our affiliations was reviewed with them and they were educated about their right to choose where referrals are placed. Patient will be going to stay with her son in [facility]. Patient requests referral to [facility] Expected date of discharge: 03/23/2016. Office of Care Management/Manager Infusion(CM) Home IV Antibiotic Therapy Referral Note. Report received from Kelley Stevens NP that patient will require continued home IV antibiotic therapy after discharge from the hospital. Met with patient/family to discuss vendor and visiting nurse choices for home IV antibiotic therapy. Reviewed Home Infusion Vendors and Home Health Agencies that serve patient???s address and accept patient???s insurance. Home Health Agency: [facility]. PHONE: [phone] FAX: [phone] Referrals sent via edischarge. Home Infusion Vendor: Patient requested referral to [facility] Referrals sent via edischarge. Diabetic Status: Patient is/is not a diabetic. IV access: 03/22/2016: A 4 Fr. single lumen Bard Power catheter was placed into the right basilic vein over a 0.018 inch guidewire using modified seldinger technique and fluoroscopy. Arm circumference was 23 cm at 2 cm above the insertion site. Final catheter length (with trimming): 35 cm ??Internal: 35 cm ??External: 0 cm Tip in SVC per DR. GIBBONS The line was not placed over a guidewire. Referral routed to the Strategic Sourcing Manager for matching with agency/vendor and to provide any required information. Chana Roger RN, BSN, [facility] Manager Infusion 5 [facility] [phone] pager#[phone] * Ralph Arguello MD - 03/23/2016 10:00 AM EST INFECTIOUS DISEASE FOLLOW-UP NOTE Active ID Issue(s): CSF leak post acoustic neuroma resection Post-operative meningitis Consulting Service/Team Pager: Neurosurgery Consulting Attending: Iván Chaves MD Admission Date: 03/14/2016 Antimicrobial Therapy: Ceftriaxone 2g IV q12hr Metronidazole 500mg PO TID Intercurrent Events/Subjective Data: - Feels much better today. Headache is all resolved, neck and body stiffness much better. Did have a fever to 38 last night, but did not feel it. Denies N/V. Physical Exam: Last value Range last 24 hrs Temperature Temp: 37.3 ??C (99.1 ??F) Temp: [37.1 ??C (98.8 ??F)-38 ??C (100.4 ??F)] Heart Rate Heart Rate: 96 Heart Rate: [70-101] Blood Pressure BP: (!) 148/101 BP: (132-172)/(86-110) Respiratory Rate Resp: 16 Resp: [16-18] SpO2 SpO2: 96 % SpO2: [94 %-97 %] General: NAD, laying comfortably in bed HEENT: Surgical incision behind R ear closed, no drainage or erythema. EOM intact. R sided herpeticlesion decreased in size. MM moist, neck supple Cardiovascular: Normal S1 and S2, 2/6 systolic murmur Abd: Normoactive BS, soft, NT, ND Extrem: No LE edema Neuro: A&Ox3, 5/5 strength in UEs and LEs b/l Skin: Warm and dry without lesions or rash Laboratory: Recent Labs 03/23/16 0426 03/22/16 0040 03/21/16 0600 WBC 20.4* 24.4* 20.2* HGB 12.2 12.1 12.2 HCT 36.4 36.0 35.5* PLATELET 218 225 204 Recent Labs 03/23/16 0426 03/22/16 0040 03/21/16 0600 NA 138 136 141 K 3.9 3.7 3.4* CL 97* 95* 97* CO2 25 26 26 BUN 12 11 10 CREATININE 0.62* 0.66* 0.60* Recent Labs 03/23/16 0426 03/22/16 0040 03/21/16 0600 CALCIUM 9.0 9.0 8.7 Microbiology: 03/14: Blood--negative 03/15: Blood--negative 03/17: Blood--negative ?? 03/15: CSF--negative 03/17: CSF--negative Radiology/Studies/Procedures: None new Assessment: Latisha Felipe is a 70 y.o.female with history of CLL, R acoustic neuroma s/p resection on omplicated by CSF leak and post-operative meningitis. She is doing much better today with resolution of her headaches and neck stiffness. Although she did have a low-grade fever yesterday, we feel comfortable deferring further workup given her overall improvement. We plan on treating her with empir ic ceftriaxone and metronidazole for a total of 14 days, which would be a long enough duration for the most likely organisms. We will place OPAT orders today; please ensure that her antibiotics are on her discharge med rec. Recommendations: - Continue ceftriaxone 2g IV q12hr - Continue metronidazole 500mg PO TID - Duration 14 days in total--03/15 to 03/29 - Weekly CBC, CMP for drug monitoring Check if applies or comment Post-discharge IV antibiotic preparation checklist X Anticipating the need for [facility] IV abx OK to place single-lumen PICC line Date final culture data expected Need to discuss concerns re adequate source control Any additional requirements needed for OPAT X OPAT order placed. Please be sure the IV antibiotic is also on to the d/c med list. Recommendations discussed with primary treating team. ID consult service will continue to follow. Page [phone] with questions or concerns. X Recommendations are above. ID will sign off. If clinical changes occur or new questions arise, page [phone]. Patient discussed with ID attending Dr. Saundra Denise MD Fellow, Infectious Disease 03/23/2016 Pager [phone] Infectious Diseases Attending I reviewed the case with Dr. Denise and reviewed the medical record, but I did not interview or examine Ms. Felipe today. I agree with Dr. Denise's recommendations, as detailed above. We are comfortable with discharge on ceftriaxone and metronidazole, with close outpatient f/u. * Jeanmarie Martinez MD - 03/23/2016 7:03 AM EST Neurosurgery Inpatient Progress Note ID: Latisha Felipe, 70 y.o. female s/p R occipital crani for rxn of vestibular schwannoma on 03/03, c/b CSF rhinorrhea and meningitis HD 8 Interval Hx: -RAFAEL -Neurologically stable -Tmax 38 Objective: Medications: Scheduled Meds: ??? metroNIDAZOLE 500 mg Oral TID ??? potassium chloride 20 mEq Oral BID ??? amLODIPine 10 mg Oral Daily ??? FLUoxetine 40 mg Oral Daily ??? senna-docusate 2 tablet Oral BID ??? famotidine 20 mg Oral BID Or ??? famotidine 20 mg Intravenous BID ??? cefTRIAXone 2 g Intravenous Q12H ??? losartan 100 mg Oral Daily ??? hydroCHLOROthiazide 25 mg Oral Daily ??? heparin (porcine) 5,000 Units Subcutaneous 2 times per day Continuous Infusions: PRN Meds:acetaminophen, pantothenic Ac-Min Oil-Pet,Hyd, melatonin, hydrOXYzine, cyclobenzaprine, albuterol, bisacodyl, polyethylene glycol, bisacodyl, ondansetron OR ondansetron, metoclopramide, labetalol, hydrALAZINE, oxyCODONE OR oxyCODONE Vitals: Temp: [36.7 ??C (98.1 ??F)-38 ??C (100.4 ??F)] Heart Rate: [70-101] Resp: [16-18] BP: (132-172)/(86-110) SpO2: [94 %-98 %] Heart Rate from SPO2: -- I/O: Intake/Output Summary (Last 24 hours) at 03/23/16 0703 Last data filed at 03/23/16 0600 Gross per 24 hour Intake 1440 ml Output 1700 ml Net -260 ml Drain(s): d/c'd (03/21) Labs: Recent Labs 03/23/16 0426 03/22/16 0040 03/21/16 0600 WBC 20.4* 24.4* 20.2* HGB 12.2 12.1 12.2 PLATELET 218 225 204 Recent Labs 03/23/16 0426 03/22/16 0040 03/21/16 0600 NA 138 136 141 K 3.9 3.7 3.4* CL 97* 95* 97* CO2 25 26 26 BUN 12 11 10 CREATININE 0.62* 0.66* 0.60* No results for input(s): PT, INR in the last 72 hours. Cx: NTD Physical Exam: -NAD -No meningismus -AAOx3 -Speech fluent and appropriate. -PERRL. EOMI. -Mild R facial asymmetry (HB II) -Tongue midline -Motor: RUE:5/5 LUE:5/5 RLE: 5/5 LLE: 08/05 -Sensation intact to LT x 4 Assessment/Plan: 70 y.o. female s/p R suboccipital crani for rxn of vestibular schwannoma now c/b CSF rhinorrhea andmeningitis. CSF Cx NTD but profile concerning in addition to clinical presentation. Improved after LD for CSF diversion and abx. LD now removed. Neurologically stable. - Close neurological observation, q4 checks - CTX/Vanc/Flagyl - ID c/s - Elevate HOB > 30 - SBP <160 - GI PPx - Monitor electrolytes - SqH, SCDs - ID c/s - Mobilize, PT/OT - Encourage PO - PICC * Christina Mcgarry DT - 03/22/2016 2:05 PM EST Nutrition Services - Follow-up Note Latisha Felipe : 1945 AGE: 70 y.o. Patient Active Problem List Diagnosis Date Noted ??? Hospital-CSF leak 03/14/2016 ??? Acoustic neuroma 02/02/2016 ??? 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 Assessment: Patient reported a good improving appetite without difficulty chewing or swallowing. She is tolerating current diet without nausea or vomiting. She is making out meal choices each day. Encouraged patient to contact Food and Nutrition services with any questions that may arise. Nutrition Plan: Continue current diet. Encourage good po intake. Monitor weight. Support and encouragement provided. Nutrition services to follow weekly thru hospital course unless consulted in the interim. TINA Powers * Ralph Arguello MD - 03/22/2016 12:50 PM EST INFECTIOUS DISEASE FOLLOW-UP NOTE Active ID Issue(s): CSF leak post acoustic neuroma resection Post-operative meningitis Herpes labialis Consulting Service/Team Pager: Neurosurgery Consulting Attending: Iván Chaves MD Admission Date: 03/14/2016 Antimicrobial Therapy: Ceftriaxone 2g IV q12hr Metronidazole 500mg PO TID Vancomycin Valacyclovir 1g x 2 doses Intercurrent Events/Subjective Data: - Feels improved from admission. Headache still present but greatly improved. Neck stiffness resolved. Denies fevers, chills, N/V. Physical Exam: Last value Range last 24 hrs Temperature Temp: 36.7 ??C (98.1 ??F) Temp: [36.5 ??C (97.7 ??F)-36.8 ??C (98.2 ??F)] Heart Rate Heart Rate: 94 Heart Rate: [85-98] Blood Pressure BP: 149/89 BP: (145-155)/(89-99) Respiratory Rate Resp: 18 Resp: [16-18] SpO2 SpO2: 98 % SpO2: [95 %-98 %] General: NAD, laying comfortably in bed HEENT: NC/AT, EOM intact. R sided herpetic lesion stable compared to yesterday. MM moist, neck supple Cardiovascular: Normal S1 and S2, 2/6 systolic murmur Respiratory: CTA b/l, no wheezes or crackles Abd: Normoactive BS, soft, NT, ND Extrem: No LE edema Neuro: A&Ox3, 5/5 strength in UEs and LEs b/l Skin: Warm and dry without lesions or rash Laboratory: Recent Labs 03/22/16 0040 03/21/16 0600 03/20/16 0543 WBC 24.4* 20.2* 24.4* HGB 12.1 12.2 12.8 HCT 36.0 35.5* 38.0 PLATELET 225 204 251 Recent Labs 03/22/16 0040 03/21/16 0600 03/20/16 0742 NA 136 141 137 K 3.7 3.4* 3.5 CL 95* 97* 96* CO2 26 26 24 BUN 11 10 16 CREATININE 0.66* 0.60* 0.61* Recent Labs 03/22/16 0040 03/21/16 0600 03/20/16 0742 CALCIUM 9.0 8.7 8.5 Microbiology: 03/14: Blood--negative 03/15: Blood--negative 03/17: Blood--negative ?? 03/15: CSF--negative 03/17: CSF--negative Radiology/Studies/Procedures: None new Assessment: Latisha Felipe is a 70 y.o.female with history of CLL, R acoustic neuroma s/p resection on omplicated by CSF leak and post-operative meningitis. Her cultures have been negative, but she hasclinically improved on her empiric regimen, suggesting that whatever the causative organism is, it is being covered. We feel it is probably safe to stop the vancomycin since MRSA should have grown ifit were present and continue the ceftriaxone and metronidazole. While her fever curve has improved,she is still spiking intermittent fevers, which concern us for untreated infection. We would like to continue to monitor her fever curve, and if she is still having fevers, she will need a repeat LP to check her CSF studies. Repeat head imaging may also be warranted. Recommendations: - Stop vancomycin - Continue metronidazole and ceftriaxone - Monitor fever curve--if still febrile, will need repeat LP for cell count, culture, protein, glucose - May also need repeat head imaging if still febrile Check if applies or comment Post-discharge IV antibiotic preparation checklist X Anticipating the need for [facility] IV abx OK to place single-lumen PICC line Date final culture data expected Need to discuss concerns re adequate source control Any additional requirements needed for OPAT OPAT order placed. Please be sure the IV antibiotic is also on to the d/c med list. X Recommendations discussed with primary treating team. ID consult service will continue to follow.Page [phone] with questions or concerns. Recommendations are above. ID will sign off. If clinical changes occur or new questions arise, [id number]. Patient discussed with ID attending Dr. Saundra Denise MD Fellow, Infectious Disease 03/22/2016 Pager [phone] ID Attending I interviewed and examined the patient with Dr. Denise. I have reviewed Dr. Denise's note from today and I agree with the details as written. My physical examination confirms her findings. Of note today: Ms. Felipe still has occasional headache but overall feels better. Afebrile since yesterday morning. No positive cultures. Dr. Denise's assessment and plan were formulated after discussion with me at the time of the visit and I agree with them as documented. We suggest continued treatment with ceftriaxone and metronidazole, but MRSA infection is unlikely so vancomycin can be stopped. We will make final treatment recommendations if Ms. Felipe continues to make clinical progress and remains afebrile. If she has recurrent fever, however, a repeat LP would be helpful in documenting resolution of the inflammatory process. * Tato Espitia Jr., MD - 03/22/2016 7:19 AM EST OTOLARYNGOLOGY - HEAD & NECK SURGERY CONSULT NOTE Name: Latisha Felipe Age/Sex: 70 y.o. female ENT Attending: Dr. Aguilera Hospital Day: 9 History of Present Illness We are seeing Latisha Felipe today at the request of Iván Davis MD regarding CSF leak s/p schwannoma resection on 03/03. Problem List Patient Active Problem List Diagnosis Code ??? 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 Acoustic neuroma D33.3 ??? CSF leak G96.0 Past Medical History Past Medical History Diagnosis Date ??? CLL (chronic lymphocytic leukemia) ??? CPA (cerebellopontine angle) tumor Past Surgical History Past Surgical History Procedure Laterality Date ??? Pro endoscopic us exam, esoph N/A 02/09/2016 UPPER EUS- ENDOSCOPIC ULTRASOUND performed by Rigoberto Angel MD at [facility] ENDOSCOPY ??? Pro tissue grafts, other (e.g. autologous fat graft) N/A 03/03/2016 TISSUE GRAFT, PARATENON, FAT, DERMIS (OTHER) performed by Iván Chaves MD at [facility] MAIN OR ??? Pro excis infratent cp angle tumor Right 03/03/2016 @CRANIECTOMY, EXC. CEREBELLOPONTINE ANGLE TUMOR performed by Iván Chaves MD at [facility] MAIN OR ??? Pro microsurg techniques, req oper microscope N/A 03/03/2016 MICROSCOPE USE performed by Iván Chaves MD at [facility] MAIN OR ??? Pro excis transtemp cp angle tumor 03/03/2016 @CRANIECTOMY,TRANSTEMPORAL- ACOUSTIC NEUROMA performed by Norman Aguilera MD at [facility] MAIN OR Medications & Allergies No current facility-administered medications on file prior to encounter. Current Outpatient Prescriptions on File Prior to Encounter Medication Sig Dispense Refill ??? acetaminophen (TYLENOL) 325 mg Tablet Take 2 tablets by mouth every 4 hours. 30 tablet 1 ??? dexamethasone (DECADRON) 1 mg Tablet Take 4 tablets by mouth See Admin Instructions. Taper as follows: 4 tab BID x 3d, 2 tab BID x 3d, 1 tab BID x 3d, 1 tab daily x 3d, Stop 45 tablet 0 ??? famotidine (PEPCID) 20 mg Tablet Take 1 tablet by mouth every 12 hours. 30 tablet 12 ??? oxyCODONE (ROXICODONE) 5 mg Tablet Take 1 tablet by mouth every 4 hours as needed for Pain. 30 tablet 0 ??? polyethylene glycol (MIRALAX) 17 gram Powder in Packet Take 17 g by mouth daily as needed. 14 each 0 ??? albuterol (PROVENTIL HFA;VENTOLIN HFA;PROAIR) 90 mcg/actuation HFA Aerosol Inhaler Inhale 2 puffs into the lungs every 4 hours as needed for Wheezing. Use with spacer ??? FLUoxetine (PROZAC) 20 mg Tablet Take 40 mg by mouth daily. ??? losartan-hydrochlorothiazide (HYZAAR) 100-25 mg Tablet Take 1 tablet by mouth daily. ??? amLODIPine (NORVASC) 10 mg Tablet Take 10 mg by mouth daily. ??? LORazepam (ATIVAN) 0.5 mg Tablet Take 0.5 mg by mouth every 6 hours as needed for Anxiety. ??? KRILL OIL ORAL Take by mouth daily. ??? FOLIC ACID/MULTIVIT-MIN/LUTEIN (CENTRUM SILVER ORAL) Take by mouth daily. ??? CALCIUM CARBONATE/VITAMIN D3 (CALTRATE 600 + D ORAL) Take by mouth daily. Sulfa (sulfonamide antibiotics) Social History Lives in [place] [id number] Social History Social History ??? Marital status: Spouse name: N/A ??? Number of children: N/A ??? Years of education: N/A Occupational History ??? Not on file. Social History Main Topics ??? Smoking status: Former Smoker Packs/day: 0.50 Years: 15.00 Types: Cigarettes ??? Smokeless tobacco: Never Used Comment: quit ??? Alcohol use Yes Comment: wine nightly ??? Drug use: No ??? Sexual activity: Not on file Other Topics Concern ??? Not on file Social History Narrative Family History History reviewed. No pertinent family history. Vitals Last value 24hr Range Temperature: 36.5 ??C (97.7 ??F) Temp: [36.5 ??C (97.7 ??F)-38.3 ??C (100.9 ??F)] Heart Rate: 85 Heart Rate: [85-98] Blood Pressure: (!) 145/92 BP: (145-155)/(89-99) Respiratory Rate: 16 Resp: [16] SpO2: 96 % SpO2: [95 %-97 %] Physical Exam General: NAD Head: cranial incision c/d/i. No evidence of erythema or drainage. No nuchal rigidity or photophobia R labial vesicular rash in V3 distribution on lower lip Nose: Patent nares, grossly normal appearance. Dandy-Walker negative. Oral Cavity/Pharynx: Mucosa is pink, oropharynx symmetric Neck: Soft, trachea midline Neuro: Alert & oriented, moving extremities x 4 Procedures Labs Recent Labs 03/22/16 0040 03/21/16 0600 WBC 24.4* 20.2* HGB 12.1 12.2 HCT 36.0 35.5* PLATELET 225 204 NA 136 141 K 3.7 3.4* CL 95* 97* CO2 26 26 BUN 11 10 CREATININE 0.66* 0.60* GLUCOSE 120 120 CALCIUM 9.0 8.7 Imaging *Personally reviewed and evaluated ASSESSMENT & RECOMMENDATIONS Latisha Felipe is a 70 y.o. female s/p R suboccipital crani- for resection of vestibular schwannoma on 03/03 complicated by CSF rhinorrhea and meningitis -No CSF rhinorrhea for several days, examined this AM -Meningitis symptoms improving -[id number] if clear fluid rhinorrhea returns -ENT will follow. Please page with questions or concerns __ * Yaya Ware MD - 03/22/2016 6:27 AM EST Neurosurgery Inpatient Progress Note ID: Latisha Felipe, 70 y.o. female s/p R occipital crani for rxn of vestibular schwannoma on 03/03, c/b CSF rhinorrhea and meningitis HD 7 Interval Hx: -RAFAEL -Neurologically stable -LD d/c'd Objective: Medications: Scheduled Meds: ??? valACYclovir 1,000 mg Oral BID ??? metroNIDAZOLE 500 mg Oral TID ??? potassium chloride 20 mEq Oral BID ??? Vancomycin Level - MAR Order Reminder NOT APPLICABLE Once ??? vancomycin 1.25 g Intravenous Q8H ??? amLODIPine 10 mg Oral Daily ??? FLUoxetine 40 mg Oral Daily ??? senna-docusate 2 tablet Oral BID ??? famotidine 20 mg Oral BID Or ??? famotidine 20 mg Intravenous BID ??? cefTRIAXone 2 g Intravenous Q12H ??? losartan 100 mg Oral Daily ??? hydroCHLOROthiazide 25 mg Oral Daily ??? acetaminophen 1,000 mg Oral Q6H ??? heparin (porcine) 5,000 Units Subcutaneous 2 times per day Continuous Infusions: PRN Meds:pantothenic Ac-Min Oil-Pet,Hyd, melatonin, hydrOXYzine, cyclobenzaprine, albuterol, bisacodyl, polyethylene glycol, bisacodyl, ondansetron OR ondansetron, metoclopramide, labetalol, hydrALAZINE, oxyCODONE OR oxyCODONE Vitals: Temp: [36.5 ??C (97.7 ??F)-38.3 ??C (100.9 ??F)] Heart Rate: [85-98] Resp: [16] BP: (145-155)/(89-99) SpO2: [95 %-97 %] Heart Rate from SPO2: [86 bpm-96 bpm] I/O: Intake/Output Summary (Last 24 hours) at 03/22/16 06 Last data filed at 03/22/16 0514 Gross per 24 hour Intake 1295 ml Output 1775 ml Net -480 ml Drain(s): d/c'd (03/21) Labs: Recent Labs 03/22/16 0040 03/21/16 0600 03/20/16 0543 WBC 24.4* 20.2* 24.4* HGB 12.1 12.2 12.8 PLATELET 225 204 251 Recent Labs 03/22/16 0040 03/21/16 0600 03/20/16 0742 NA 136 141 137 K 3.7 3.4* 3.5 CL 95* 97* 96* CO2 26 26 24 BUN 11 10 16 CREATININE 0.66* 0.60* 0.61* No results for input(s): PT, INR in the last 72 hours. Cx: NTD Physical Exam: -NAD -No meningismus -AAOx3 -Speech fluent and appropriate. -PERRL. EOMI. -Mild R facial asymmetry (HB II) -Tongue midline -Motor: RUE:5/5 LUE:5/5 RLE: 5/5 LLE: 5/5 -Sensation intact to LT x 4 Assessment/Plan: 70 y.o. female s/p R suboccipital crani for rxn of vestibular schwannoma now c/b CSF rhinorrhea andmeningitis. CSF Cx NTD but profile concerning in addition to clinical presentation. Improved after LD for CSF diversion and abx. LD now removed. Neurologically stable. - Close neurological observation, q4 checks - CTX/Vanc/Flagyl - ID c/s - Elevate HOB > 30 - SBP <160 - GI PPx - Monitor electrolytes - SqH, SCDs - ID c/s - Mobilize, PT/OT - Encourage PO - PICC * Mecca Garces RN - 03/21/2016 5:11 PM EST Pt A&OX4, VSS, pleasant. Family at bedside, supportive of patient. Patient has great activity tolerance and got OOB and ambulated to bathroom and around unit with SBA with FWW. Medicated X1 with tylenol for 4/10 h/a. Tylenol completely relieved this pain. No other acute events this shift, will CTM and alert team of any events or complaints from pt. this nurse attests to agree with previous nurse's full assessment. * Mecca Garces RN - 03/21/2016 1:50 PM EST [facility] [place] [facility] [place] approximately 1320. Report received from [facility]. Patient oriented to unit, room and call bautista. Bed alarm activated. HOB >30 degrees. IV ABX running without issue. Will CTM and alert team of any acute changes. * Tato Espitia Jr., MD - 03/21/2016 8:49 AM EST OTOLARYNGOLOGY - HEAD & NECK SURGERY CONSULT NOTE Name: Latisha Felipe Age/Sex: 70 y.o. female ENT Attending: Dr. Aguilera [facility] Day: 8 History of Present Illness We are seeing Latisha Felipe today at the request of Iván Davis MD regarding CSF leak s/p schwannoma resection on 03/03. Problem List Patient Active Problem List Diagnosis Code ??? 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 Acoustic neuroma D33.3 ??? CSF leak G96.0 Past Medical History Past Medical History Diagnosis Date ??? CLL (chronic lymphocytic leukemia) ??? CPA (cerebellopontine angle) tumor Past Surgical History Past Surgical History Procedure Laterality Date ??? Pro endoscopic us exam, jermaine N/A 02/09/2016 UPPER EUS- ENDOSCOPIC ULTRASOUND performed by Rigoberto Angel MD at [facility] ENDOSCOPY ??? Pro tissue grafts, other (e.g. autologous fat graft) N/A 03/03/2016 TISSUE GRAFT, PARATENON, FAT, DERMIS (OTHER) performed by Iván Chaves MD at [facility] MAIN OR ??? Pro excis infratent cp angle tumor Right 03/03/2016 @CRANIECTOMY, EXC. CEREBELLOPONTINE ANGLE TUMOR performed by Iván Chaves MD at [facility] MAIN OR ??? Pro microsurg techniques, req oper microscope N/A 03/03/2016 MICROSCOPE USE performed by Iván Chaves MD at [facility] MAIN OR ??? Pro excis transtemp cp angle tumor 03/03/2016 @CRANIECTOMY,TRANSTEMPORAL- ACOUSTIC NEUROMA performed by Norman Aguilera MD at [facility] MAIN OR Medications & Allergies No current facility-administered medications on file prior to encounter. Current Outpatient Prescriptions on File Prior to Encounter Medication Sig Dispense Refill ??? acetaminophen (TYLENOL) 325 mg Tablet Take 2 tablets by mouth every 4 hours. 30 tablet 1 ??? dexamethasone (DECADRON) 1 mg Tablet Take 4 tablets by mouth See Admin Instructions. Taper as follows: 4 tab BID x 3d, 2 tab BID x 3d, 1 tab BID x 3d, 1 tab daily x 3d, Stop 45 tablet 0 ??? famotidine (PEPCID) 20 mg Tablet Take 1 tablet by mouth every 12 hours. 30 tablet 12 ??? oxyCODONE (ROXICODONE) 5 mg Tablet Take 1 tablet by mouth every 4 hours as needed for Pain. 30 tablet 0 ??? polyethylene glycol (MIRALAX) 17 gram Powder in Packet Take 17 g by mouth daily as needed. 14 each 0 ??? albuterol (PROVENTIL HFA;VENTOLIN HFA;PROAIR) 90 mcg/actuation HFA Aerosol Inhaler Inhale 2 puffs into the lungs every 4 hours as needed for Wheezing. Use with spacer ??? FLUoxetine (PROZAC) 20 mg Tablet Take 40 mg by mouth daily. ??? losartan-hydrochlorothiazide (HYZAAR) 100-25 mg Tablet Take 1 tablet by mouth daily. ??? amLODIPine (NORVASC) 10 mg Tablet Take 10 mg by mouth daily. ??? LORazepam (ATIVAN) 0.5 mg Tablet Take 0.5 mg by mouth every 6 hours as needed for Anxiety. ??? KRILL OIL ORAL Take by mouth daily. ??? FOLIC ACID/MULTIVIT-MIN/LUTEIN (CENTRUM SILVER ORAL) Take by mouth daily. ??? CALCIUM CARBONATE/VITAMIN D3 (CALTRATE 600 + D ORAL) Take by mouth daily. Sulfa (sulfonamide antibiotics) Social History Lives in [facility] [id number] Social History Social History ??? Marital status: Spouse name: N/A ??? Number of children: N/A ??? Years of education: N/A Occupational History ??? Not on file. Social History Main Topics ??? Smoking status: Former Smoker Packs/day: 0.50 Years: 15.00 Types: Cigarettes ??? Smokeless tobacco: Never Used Comment: quit ??? Alcohol use Yes Comment: wine nightly ??? Drug use: No ??? Sexual activity: Not on file Other Topics Concern ??? Not on file Social History Narrative Family History History reviewed. No pertinent family history. Vitals Last value 24hr Range Temperature: 38.1 ??C (100.6 ??F) Temp: [36.7 ??C (98.1 ??F)-38.3 ??C (100.9 ??F)] Heart Rate: 95 Heart Rate: [85-95] Blood Pressure: (!) 147/94 BP: (138-170)/(70-107) Respiratory Rate: 16 Resp: [16-18] SpO2: 94 % SpO2: [92 %-97 %] Physical Exam General: NAD Head: cranial incision c/d/i. No evidence of erythema or drainage. No nuchal rigidity or photophobia R labial vesicular rash in V3 distribution on lower lip Nose: Patent nares, grossly normal appearance. Dandy-Walker negative. Oral Cavity/Pharynx: Mucosa is pink, oropharynx symmetric Neck: Soft, trachea midline Neuro: Alert & oriented, moving extremities x 4 Procedures Labs Recent Labs 03/21/16 0600 03/20/16 0742 03/20/16 0543 WBC 20.2* -- 24.4* HGB 12.2 -- 12.8 HCT 35.5* -- 38.0 PLATELET 204 -- 251 NA 141 137 -- K 3.4* 3.5 -- CL 97* 96* -- CO2 26 24 -- BUN 10 16 -- CREATININE 0.60* 0.61* -- GLUCOSE 120 130 -- CALCIUM 8.7 8.5 -- Imaging *Personally reviewed and evaluated ASSESSMENT & RECOMMENDATIONS Latisha Felipe is a 70 y.o. female s/p R suboccipital crani- for resection of vestibular schwannoma on 03/03 complicated by CSF rhinorrhea and meningitis -No CSF rhinorrhea for several days -Meningitis symptoms improving -[id number] if clear fluid rhinorrhea returns -Neurosurgery managing lumbar drain -ENT will follow. Please page with questions or concerns __ * Jean De Leon MD - 03/21/2016 7:45 AM EST Neurosurgery Inpatient Progress Note ID: Latisha Felipe, 70 y.o. female s/p R occipital crani for rxn of vestibular schwannoma on 03/03, c/b CSF rhinorrhea and meningitis Interval Hx: -RAFAEL, sxs improving -Neurologically stable -LD clamped, No rhinorrhea Objective: Medications: Scheduled Meds: ??? Vancomycin Level - MAR Order Reminder NOT APPLICABLE Once ??? vancomycin 1.25 g Intravenous Q8H ??? sodium chloride 1 g Oral TID ??? amLODIPine 10 mg Oral Daily ??? FLUoxetine 40 mg Oral Daily ??? senna-docusate 2 tablet Oral BID ??? famotidine 20 mg Oral BID Or ??? famotidine 20 mg Intravenous BID ??? cefTRIAXone 2 g Intravenous Q12H ??? metroNIDAZOLE 500 mg Intravenous Q8H ??? losartan 100 mg Oral Daily ??? hydroCHLOROthiazide 25 mg Oral Daily ??? acetaminophen 1,000 mg Oral Q6H ??? heparin (porcine) 5,000 Units Subcutaneous 2 times per day Continuous Infusions: PRN Meds:melatonin, hydrOXYzine, cyclobenzaprine, albuterol, bisacodyl, polyethylene glycol, bisacodyl, ondansetron OR ondansetron, metoclopramide, labetalol, hydrALAZINE, oxyCODONE OR oxyCODONE Vitals: Temp: [36.7 ??C (98.1 ??F)-38.3 ??C (100.9 ??F)] Heart Rate: [85-95] Resp: [16-18] BP: (138-170)/(70-107) SpO2: [92 %-97 %] Heart Rate from SPO2: [72 bpm-90 bpm] I/O: Intake/Output Summary (Last 24 hours) at 03/21/16 0745 Last data filed at 03/21/16 0400 Gross per 24 hour Intake 2787 ml Output 2588 ml Net 199 ml Drain(s): LD clamped Labs: Recent Labs 03/21/16 0600 03/20/16 0543 03/19/16 0130 WBC 20.2* 24.4* 21.0* HGB 12.2 12.8 12.8 PLATELET 204 251 254 Recent Labs 03/21/16 0600 03/20/16 0742 03/19/16 1800 NA 141 137 135 K 3.4* 3.5 3.7 CL 97* 96* 97* CO2 26 24 25 BUN 10 16 18 CREATININE 0.60* 0.61* 0.66* No results for input(s): PT, INR in the last 72 hours. Cx: NTD Physical Exam: -NAD -No meningismus -AAOx3 -Speech fluent and appropriate. -PERRL. EOMI. -Mild R facial asymmetry (HB II) -Tongue midline -Motor: RUE:5/5 LUE:5/5 RLE: 5/5 LLE: 5/5 -Sensation intact to LT x 4 Assessment/Plan: 70 y.o. female s/p R suboccipital crani for rxn of vestibular schwannoma now c/b CSF rhinorrhea andmeningitis. CSF Cx NTD but profile concerning in addition to clinical presentation. Improved after LD for CSF diversion and abx. Neurologically stable. - Close neurological observation, q2 checks - LD clamped (likely out today) - CTX/Vanc - Elevate HOB > 30 - SBP <160 - GI PPx - Monitor electrolytes - 3%, Salt tabs for hyponatremia - K replacement - SqH, SCDs - ID c/s - Mobilize, PT/OT - Encourage PO * Pritesh Delvalle MD - 03/20/2016 12:07 PM EST OTOLARYNGOLOGY - HEAD & NECK SURGERY CONSULT NOTE Name: Latisha Felipe Age/Sex: 70 y.o. female ENT Attending: Dr. Aguilera Hospital Day: 7 History of Present Illness We are seeing Latisha Felipe today at the request of Iván Davis MD regarding CSF leak s/p schwannoma resection on 03/03. Problem List Patient Active Problem List Diagnosis Code ??? 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 Acoustic neuroma D33.3 ??? CSF leak G96.0 Past Medical History Past Medical History Diagnosis Date ??? CLL (chronic lymphocytic leukemia) ??? CPA (cerebellopontine angle) tumor Past Surgical History Past Surgical History Procedure Laterality Date ??? Pro endoscopic us exam, esoph N/A 02/09/2016 UPPER EUS- ENDOSCOPIC ULTRASOUND performed by Rigoberto Angel MD at [facility] ENDOSCOPY ??? Pro tissue grafts, other (e.g. autologous fat graft) N/A 03/03/2016 TISSUE GRAFT, PARATENON, FAT, DERMIS (OTHER) performed by Iván Chaves MD at [facility] MAIN OR ??? Pro excis infratent cp angle tumor Right 03/03/2016 @CRANIECTOMY, EXC. CEREBELLOPONTINE ANGLE TUMOR performed by Iván Chaves MD at [facility] MAIN OR ??? Pro microsurg techniques, req oper microscope N/A 03/03/2016 MICROSCOPE USE performed by Iván Chaves MD at [facility] MAIN OR ??? Pro excis transtemp cp angle tumor 03/03/2016 @CRANIECTOMY,TRANSTEMPORAL- ACOUSTIC NEUROMA performed by Norman Aguilera MD at [facility] MAIN OR Medications & Allergies No current facility-administered medications on file prior to encounter. Current Outpatient Prescriptions on File Prior to Encounter Medication Sig Dispense Refill ??? acetaminophen (TYLENOL) 325 mg Tablet Take 2 tablets by mouth every 4 hours. 30 tablet 1 ??? dexamethasone (DECADRON) 1 mg Tablet Take 4 tablets by mouth See Admin Instructions. Taper as follows: 4 tab BID x 3d, 2 tab BID x 3d, 1 tab BID x 3d, 1 tab daily x 3d, Stop 45 tablet 0 ??? famotidine (PEPCID) 20 mg Tablet Take 1 tablet by mouth every 12 hours. 30 tablet 12 ??? oxyCODONE (ROXICODONE) 5 mg Tablet Take 1 tablet by mouth every 4 hours as needed for Pain. 30 tablet 0 ??? polyethylene glycol (MIRALAX) 17 gram Powder in Packet Take 17 g by mouth daily as needed. 14 each 0 ??? albuterol (PROVENTIL HFA;VENTOLIN HFA;PROAIR) 90 mcg/actuation HFA Aerosol Inhaler Inhale 2 puffs into the lungs every 4 hours as needed for Wheezing. Use with spacer ??? FLUoxetine (PROZAC) 20 mg Tablet Take 40 mg by mouth daily. ??? losartan-hydrochlorothiazide (HYZAAR) 100-25 mg Tablet Take 1 tablet by mouth daily. ??? amLODIPine (NORVASC) 10 mg Tablet Take 10 mg by mouth daily. ??? LORazepam (ATIVAN) 0.5 mg Tablet Take 0.5 mg by mouth every 6 hours as needed for Anxiety. ??? KRILL OIL ORAL Take by mouth daily. ??? FOLIC ACID/MULTIVIT-MIN/LUTEIN (CENTRUM SILVER ORAL) Take by mouth daily. ??? CALCIUM CARBONATE/VITAMIN D3 (CALTRATE 600 + D ORAL) Take by mouth daily. Sulfa (sulfonamide antibiotics) Social History Lives in [place] [id number] Social History Social History ??? Marital status: Spouse name: N/A ??? Number of children: N/A ??? Years of education: N/A Occupational History ??? Not on file. Social History Main Topics ??? Smoking status: Former Smoker Packs/day: 0.50 Years: 15.00 Types: Cigarettes ??? Smokeless tobacco: Never Used Comment: quit ??? Alcohol use Yes Comment: wine nightly ??? Drug use: No ??? Sexual activity: Not on file Other Topics Concern ??? Not on file Social History Narrative Family History History reviewed. No pertinent family history. Vitals Last value 24hr Range Temperature: 37.7 ??C (99.9 ??F) Temp: [36.2 ??C (97.2 ??F)-38.2 ??C (100.8 ??F)] Heart Rate: 86 Heart Rate: [86-89] Blood Pressure: (!) 169/99 (PRN Labetolol given at this time) BP: (122-169)/(79-99) Respiratory Rate: 18 Resp: [14-18] SpO2: 94 % SpO2: [94 %-98 %] Physical Exam General: NAD Head: cranial incision c/d/i. No evidence of erythema or drainage. No nuchal rigidity or photophobia R labial vesicular rash in V3 distribution on lower lip Nose: Patent nares, grossly normal appearance. Dandy-Walker negative. Oral Cavity/Pharynx: Mucosa is pink, oropharynx symmetric Neck: Soft, trachea midline Neuro: Alert & oriented, moving extremities x 4 Procedures Labs Recent Labs 03/20/16 0742 03/20/16 0543 03/19/16 1800 03/19/16 0130 WBC -- 24.4* -- 21.0* HGB -- 12.8 -- 12.8 HCT -- 38.0 -- 37.4 PLATELET -- 251 -- 254 NA 137 -- 135 137 K 3.5 -- 3.7 3.6 CL 96* -- 97* 95* CO2 24 -- 25 27 BUN 16 -- 18 14 CREATININE 0.61* -- 0.66* 0.58* GLUCOSE 130 -- 187 131 CALCIUM 8.5 -- 8.6 8.7 Imaging *Personally reviewed and evaluated ASSESSMENT & RECOMMENDATIONS Latisha Felipe is a 70 y.o. 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 Please page with questions or concerns __ * Chana Roger RN - 03/20/2016 11:10 AM EST OFFICE OF CARE MANAGEMENT Manager Infusion Follow-up Note S/O: Discussed plan of care with Primary team and Nursing. Met with to assess continuing care and discharge needs. 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 The patient/customer loyalty representative has been provided a list of Home Health Agencies/DME vendors which servetheir preferred geographic area. A letter describing our affiliations was reviewed with them and they were educated about their right to choose where referrals are placed. Patient requests referral to [facility] PHONE:[phone] FAX: [phone] [facility] Expected date of discharge: 03/22/2016 Referral routed to the Strategic Sourcing Manager for matching with agency/vendor and to provide any required information. A: Discharge plan uncertain at this time. PT to evaluate & drain to come out. P:Manager Infusion to follow with team and family to assist with discharge needs when patient ready fordischarge. Chana Roger RN, Manager Infusion Pager #[phone] * Jean De Leon MD - 03/20/2016 7:40 AM EST Neurosurgery Inpatient Progress Note ID: Latisha Felipe, 70 y.o. female s/p R occipital crani for rxn of vestibular schwannoma on 03/03, c/b CSF rhinorrhea and meningitis Interval Hx: -RAFAEL, sxs improving -Neurologically stable -No rhinorrhea Objective: Medications: Scheduled Meds: ??? vancomycin 1 g Intravenous Q8H ??? Vancomycin Level - MAR Order Reminder NOT APPLICABLE Once ??? sodium chloride 1 g Oral TID ??? amLODIPine 10 mg Oral Daily ??? FLUoxetine 40 mg Oral Daily ??? senna-docusate 2 tablet Oral BID ??? famotidine 20 mg Oral BID Or ??? famotidine 20 mg Intravenous BID ??? cefTRIAXone 2 g Intravenous Q12H ??? metroNIDAZOLE 500 mg Intravenous Q8H ??? losartan 100 mg Oral Daily ??? hydroCHLOROthiazide 25 mg Oral Daily ??? acetaminophen 1,000 mg Oral Q6H ??? heparin (porcine) 5,000 Units Subcutaneous 2 times per day Continuous Infusions: PRN Meds:melatonin, hydrOXYzine, cyclobenzaprine, albuterol, bisacodyl, polyethylene glycol, bisacodyl, ondansetron OR ondansetron, metoclopramide, labetalol, hydrALAZINE, [DISCONTINUED] vancomycin AND Vancomycin, trough AND Vancomycin Level - MAR Order Reminder, oxyCODONE OR oxyCODONE Vitals: Temp: [36.2 ??C (97.2 ??F)-37.6 ??C (99.7 ??F)] Heart Rate: [87-94] Resp: [14-18] BP: (122-144)/(79-99) SpO2: [95 %-98 %] Heart Rate from SPO2: -- I/O: Intake/Output Summary (Last 24 hours) at 03/20/16 0740 Last data filed at 03/20/16 0700 Gross per 24 hour Intake 2209 ml Output 1684 ml Net 525 ml Drain(s): LD 236.5 @ -5 Labs: Recent Labs 03/20/16 0543 03/19/16 0130 03/18/16 0323 WBC 24.4* 21.0* 24.0* HGB 12.8 12.8 12.1 PLATELET 251 254 289 Recent Labs 03/19/16 1800 03/19/16 0130 03/18/16 2245 03/18/16 1700 NA 135 137 -- 136 K 3.7 3.6 3.7 2.9* CL 97* 95* -- 90* CO2 25 27 -- 28 BUN 18 14 -- 12 CREATININE 0.66* 0.58* -- 0.63* No results for input(s): PT, INR in the last 72 hours. Cx: NTD Physical Exam: -NAD -No meningismus -AAOx3 -Speech fluent and appropriate. -PERRL. EOMI. -Mild R facial asymmetry (HB II) -Tongue midline -Motor: RUE:08/05 LUE:08/05 RLE: 08/05 LLE: 08/05 -Sensation intact to LT x 4 Assessment/Plan: 70 y.o. female s/p R suboccipital crani for rxn of vestibular schwannoma now c/b CSF rhinorrhea andmeningitis. CSF Cx NTD but profile concerning in addition to clinical presentation. Improved after LD for CSF diversion and abx. Neurologically stable. - Close neurological observation, q2 checks - LD clamp today - CTX/Vanc - Elevate HOB > 30 - SBP <160 - GI PPx - Monitor electrolytes - 3%, Salt tabs for hyponatremia - K replacement - SqH, SCDs - ID c/s - Mobilize, PT/OT - Encourage PO * Tato Espitia Jr., MD - 03/19/2016 11:14 AM EST OTOLARYNGOLOGY - HEAD & NECK SURGERY CONSULT NOTE Name: Latisha Felipe Age/Sex: 70 y.o. female ENT Attending: Dr. Aguilera [facility] Day: 6 History of Present Illness We are seeing Latisha Felipe today at the request of Iván Davis MD regarding CSF leak s/p schwannoma resection on 03/03. Problem List Patient Active Problem List Diagnosis Code ??? 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 Acoustic neuroma D33.3 ??? CSF leak G96.0 Past Medical History Past Medical History Diagnosis Date ??? CLL (chronic lymphocytic leukemia) ??? CPA (cerebellopontine angle) tumor Past Surgical History Past Surgical History Procedure Laterality Date ??? Pro endoscopic us exam, esoph N/A 02/09/2016 UPPER EUS- ENDOSCOPIC ULTRASOUND performed by Rigoberto Angel MD at [facility] ENDOSCOPY ??? Pro tissue grafts, other (e.g. autologous fat graft) N/A 03/03/2016 TISSUE GRAFT, PARATENON, FAT, DERMIS (OTHER) performed by Iván Chaves MD at [facility] MAIN OR ??? Pro excis infratent cp angle tumor Right 03/03/2016 @CRANIECTOMY, EXC. CEREBELLOPONTINE ANGLE TUMOR performed by Iván Chaves MD at [facility] MAIN OR ??? Pro microsurg techniques, req oper microscope N/A 03/03/2016 MICROSCOPE USE performed by Iván Chaves MD at [facility] MAIN OR ??? Pro excis transtemp cp angle tumor 03/03/2016 @CRANIECTOMY,TRANSTEMPORAL- ACOUSTIC NEUROMA performed by Norman Aguilera MD at [facility] MAIN OR Medications & Allergies No current facility-administered medications on file prior to encounter. Current Outpatient Prescriptions on File Prior to Encounter Medication Sig Dispense Refill ??? acetaminophen (TYLENOL) 325 mg Tablet Take 2 tablets by mouth every 4 hours. 30 tablet 1 ??? dexamethasone (DECADRON) 1 mg Tablet Take 4 tablets by mouth See Admin Instructions. Taper as follows: 4 tab BID x 3d, 2 tab BID x 3d, 1 tab BID x 3d, 1 tab daily x 3d, Stop 45 tablet 0 ??? famotidine (PEPCID) 20 mg Tablet Take 1 tablet by mouth every 12 hours. 30 tablet 12 ??? oxyCODONE (ROXICODONE) 5 mg Tablet Take 1 tablet by mouth every 4 hours as needed for Pain. 30 tablet 0 ??? polyethylene glycol (MIRALAX) 17 gram Powder in Packet Take 17 g by mouth daily as needed. 14 each 0 ??? albuterol (PROVENTIL HFA;VENTOLIN HFA;PROAIR) 90 mcg/actuation HFA Aerosol Inhaler Inhale 2 puffs into the lungs every 4 hours as needed for Wheezing. Use with spacer ??? FLUoxetine (PROZAC) 20 mg Tablet Take 40 mg by mouth daily. ??? losartan-hydrochlorothiazide (HYZAAR) 100-25 mg Tablet Take 1 tablet by mouth daily. ??? amLODIPine (NORVASC) 10 mg Tablet Take 10 mg by mouth daily. ??? LORazepam (ATIVAN) 0.5 mg Tablet Take 0.5 mg by mouth every 6 hours as needed for Anxiety. ??? KRILL OIL ORAL Take by mouth daily. ??? FOLIC ACID/MULTIVIT-MIN/LUTEIN (CENTRUM SILVER ORAL) Take by mouth daily. ??? CALCIUM CARBONATE/VITAMIN D3 (CALTRATE 600 + D ORAL) Take by mouth daily. Sulfa (sulfonamide antibiotics) Social History Lives in [facility] [id number] Social History Social History ??? Marital status: Spouse name: N/A ??? Number of children: N/A ??? Years of education: N/A Occupational History ??? Not on file. Social History Main Topics ??? Smoking status: Former Smoker Packs/day: 0.50 Years: 15.00 Types: Cigarettes ??? Smokeless tobacco: Never Used Comment: quit ??? Alcohol use Yes Comment: wine nightly ??? Drug use: No ??? Sexual activity: Not on file Other Topics Concern ??? Not on file Social History Narrative Family History History reviewed. No pertinent family history. Vitals Last value 24hr Range Temperature: 36.9 ??C (98.4 ??F) Temp: [36.3 ??C (97.3 ??F)-37.8 ??C (100 ??F)] Heart Rate: 92 Heart Rate: [74-92] Blood Pressure: 133/85 BP: (115-156)/(69-100) Respiratory Rate: 16 Resp: [14-18] SpO2: 98 % SpO2: [95 %-98 %] Physical Exam General: NAD Head: cranial incision c/d/i. No evidence of erythema or drainage. No nuchal rigidity or photophobia R labial vesicular rash in V3 distribution on lower lip Nose: Patent nares, grossly normal appearance Oral Cavity/Pharynx: Mucosa is pink, oropharynx symmetric Neck: Soft, trachea midline Neuro: Alert & oriented, moving extremities x 4 Procedures Labs Recent Labs 03/19/16 0130 03/18/16 2245 03/18/16 1700 03/18/16 0323 03/16/16 2324 WBC 21.0* -- -- 24.0* < > -- HGB 12.8 -- -- 12.1 < > -- HCT 37.4 -- -- 35.4* < > -- PLATELET 254 -- -- 289 < > -- NA 137 -- 136 135 < > 137 K 3.6 3.7 2.9* 3.6 3.4* < > 3.0* CL 95* -- 90* 90* < > 96* CO2 27 -- 28 Not Perf < > 28 BUN 14 -- 12 10 < > -- CREATININE 0.58* -- 0.63* 0.68* < > -- GLUCOSE 131 -- 188 152 < > -- CALCIUM 8.7 -- 9.1 8.4* < > -- MAGNESIUM -- -- -- -- -- 0.80 < > = values in this interval not displayed. Imaging *Personally reviewed and evaluated ASSESSMENT & RECOMMENDATIONS Latisha Felipe is a 70 y.o. 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 Pt denies fluid from nose this AM -[id number] if clear fluid rhinorrhea returns -Neurosurgery managing lumbar drain -ENT will follow. Please page with questions or concerns __ Tato Espitia Jr, MD, PGY1 03/19/16 11:14 AM Associated attestation - Teresa Ojeda MD - 03/20/2016 10:49 AM EST Agree with above. Patient seen and examined with Dr. Espitia. No complaints of rhinorrhea. Afebrile. Lumbar drain per Neurosurgery. Will continue to monitor. 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 Vancomycin Level - [facility] Order Reminder NOT APPLICABLE Once ??? potassium chloride 40 mEq Oral BID ??? sodium chloride 1 g Oral TID ??? vancomycin 1 g Intravenous Q12H ??? amLODIPine 10 mg Oral Daily ??? FLUoxetine 40 mg Oral Daily ??? docusate sodium 100 mg Oral BID ??? senna-docusate 2 tablet Oral BID ??? famotidine 20 mg Oral BID Or ??? famotidine 20 mg Intravenous BID ??? cefTRIAXone 2 g Intravenous Q12H ??? metroNIDAZOLE 500 mg Intravenous Q8H ??? losartan 100 mg Oral Daily ??? hydroCHLOROthiazide 25 mg Oral Daily ??? acetaminophen 1,000 mg Oral Q6H ??? heparin (porcine) 5,000 Units Subcutaneous 2 times per day Continuous Infusions: EXAM: Temp: [36.4 ??C (97.5 ??F)-37.8 ??C (100 ??F)] Heart Rate: [79-86] Resp: [18] BP: (115-183)/(69-100) SpO2: [95 %-98 %] Heart Rate from SPO2: -- I/O: LD 215 cc GEN:NAD HEENT: cranial incision c/d/i. No evidence of erythema or drainage. No nuchal rigidity or photophobia R labial vesicular rash in V3 distribution NEURO: AA+Ox3 Spontaneous speech fluent and appropriate Naming and repetition intact PERRL. EOMI Mild R facial asymmetry (HB II) MOTOR EXAM: RUE: 5/5 RLE: 5/5 LUE: 5/5 LLe: 5/5 No pronator drift LT sensation intact x 4 ADB: abdominal fat graft incision c/d/i. No erythema or drainage Lab Results Component Value Date/Time WBC 21.0 (H) 03/19/2016 01:30 AM HGB 12.8 03/19/2016 01:30 AM PLATELET 254 03/19/2016 01:30 AM Lab Results Component Value Date/Time NA 137 03/19/2016 01:30 AM K 3.6 03/19/2016 01:30 AM CL 95 (L) 03/19/2016 01:30 AM CO2 27 03/19/2016 01:30 AM BUN 14 03/19/2016 01:30 AM CREATININE 0.58 (L) 03/19/2016 01:30 AM A/P: 70 y/o female s/p R suboccipital crani- for resection of a vestibular schwannoma now admitted w/ CSF rhinorrhea complicated by meningitis. CSF clx negative to date but profile concerning for infection in addition to clinical presentation. Now s/p lumbar drain for CSF diversion and abx. - Neurologic monitoring Q2 - c/w lumbar drain. Raised to -5 yesterday. - Elevate HOB > 30. Monitor for CSF rhinorrhea - Maintain SBP < 160 - No respiratory issues - GI prophylaxis - ADAT - Monitor electrolytes Q6 - 3% hypertonic saline for hyponatremia. Target Na 138-145 - HLIVF - voiding spontaneously - SQH for DVT chemoprophylaxis. Will hold prior to removal of lumbar drain - vancomycin/ceftriaxone/flagyl. Follow c/x - ID c/s - Mobilize * Tato Espitia Jr., MD - 03/18/2016 10:24 AM EST OTOLARYNGOLOGY - HEAD & NECK SURGERY CONSULT NOTE Name: Latisha Felipe Age/Sex: 70 y.o. female ENT Attending: Dr. Aguilera [facility] Day: 5 History of Present Illness We are seeing Latisha Felipe today at the request of Iván Davis MD regarding CSF leak s/p schwannoma resection on 03/03. Problem List Patient Active Problem List Diagnosis Code ??? 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 Acoustic neuroma D33.3 ??? CSF leak G96.0 Past Medical History Past Medical History Diagnosis Date ??? CLL (chronic lymphocytic leukemia) ??? CPA (cerebellopontine angle) tumor Past Surgical History Past Surgical History Procedure Laterality Date ??? Pro endoscopic us exam, esoph N/A 02/09/2016 UPPER EUS- ENDOSCOPIC ULTRASOUND performed by Rigoberto Angel MD at [facility] ENDOSCOPY ??? Pro tissue grafts, other (e.g. autologous fat graft) N/A 03/03/2016 TISSUE GRAFT, PARATENON, FAT, DERMIS (OTHER) performed by Iván Chaves MD at [facility] MAIN OR ??? Pro excis infratent cp angle tumor Right 03/03/2016 @CRANIECTOMY, EXC. CEREBELLOPONTINE ANGLE TUMOR performed by Iván Chaves MD at [facility] MAIN OR ??? Pro microsurg techniques, req oper microscope N/A 03/03/2016 MICROSCOPE USE performed by Iván Chaves MD at [facility] MAIN OR ??? Pro excis transtemp cp angle tumor 03/03/2016 @CRANIECTOMY,TRANSTEMPORAL- ACOUSTIC NEUROMA performed by Norman Aguilera MD at [facility] MAIN OR Medications & Allergies No current facility-administered medications on file prior to encounter. Current Outpatient Prescriptions on File Prior to Encounter Medication Sig Dispense Refill ??? acetaminophen (TYLENOL) 325 mg Tablet Take 2 tablets by mouth every 4 hours. 30 tablet 1 ??? dexamethasone (DECADRON) 1 mg Tablet Take 4 tablets by mouth See Admin Instructions. Taper as follows: 4 tab BID x 3d, 2 tab BID x 3d, 1 tab BID x 3d, 1 tab daily x 3d, Stop 45 tablet 0 ??? famotidine (PEPCID) 20 mg Tablet Take 1 tablet by mouth every 12 hours. 30 tablet 12 ??? oxyCODONE (ROXICODONE) 5 mg Tablet Take 1 tablet by mouth every 4 hours as needed for Pain. 30 tablet 0 ??? polyethylene glycol (MIRALAX) 17 gram Powder in Packet Take 17 g by mouth daily as needed. 14 each 0 ??? albuterol (PROVENTIL HFA;VENTOLIN HFA;PROAIR) 90 mcg/actuation HFA Aerosol Inhaler Inhale 2 puffs into the lungs every 4 hours as needed for Wheezing. Use with spacer ??? FLUoxetine (PROZAC) 20 mg Tablet Take 40 mg by mouth daily. ??? losartan-hydrochlorothiazide (HYZAAR) 100-25 mg Tablet Take 1 tablet by mouth daily. ??? amLODIPine (NORVASC) 10 mg Tablet Take 10 mg by mouth daily. ??? LORazepam (ATIVAN) 0.5 mg Tablet Take 0.5 mg by mouth every 6 hours as needed for Anxiety. ??? KRILL OIL ORAL Take by mouth daily. ??? FOLIC ACID/MULTIVIT-MIN/LUTEIN (CENTRUM SILVER ORAL) Take by mouth daily. ??? CALCIUM CARBONATE/VITAMIN D3 (CALTRATE 600 + D ORAL) Take by mouth daily. Sulfa (sulfonamide antibiotics) Social History Lives in [facility] [address] Social History Social History ??? Marital status: Spouse name: N/A ??? Number of children: N/A ??? Years of education: N/A Occupational History ??? Not on file. Social History Main Topics ??? Smoking status: Former Smoker Packs/day: 0.50 Years: 15.00 Types: Cigarettes ??? Smokeless tobacco: Never Used Comment: quit ??? Alcohol use Yes Comment: wine nightly ??? Drug use: No ??? Sexual activity: Not on file Other Topics Concern ??? Not on file Social History Narrative Family History History reviewed. No pertinent family history. Vitals Last value 24hr Range Temperature: 37.4 ??C (99.3 ??F) Temp: [36.4 ??C (97.5 ??F)-39 ??C (102.2 ??F)] Heart Rate: 86 Heart Rate: [74-86] Blood Pressure: (!) 148/92 BP: (135-183)/(74-95) Respiratory Rate: 20 Resp: [16-24] SpO2: 98 % SpO2: [94 %-98 %] Physical Exam General: NAD Head: cranial incision c/d/i. No evidence of erythema or drainage. No nuchal rigidity or photophobia R labial vesicular rash in V3 distribution Nose: Patent nares, grossly normal appearance Oral Cavity/Pharynx: Mucosa is pink, oropharynx symmetric Neck: Soft, trachea midline Neuro: Alert & oriented, moving extremities x 4 Procedures Labs Recent Labs 03/18/16 0323 03/17/16 1715 03/17/16 0530 03/16/16 2324 03/16/16 0527 WBC 24.0* -- 23.7* -- -- -- HGB 12.1 -- 11.1* -- -- -- HCT 35.4* -- 32.3* -- -- -- PLATELET 289 -- 249 -- -- -- NA -- 136 136 137 < > 143 K 3.4* 2.8* 3.6 3.0* < > 3.1* CL -- 93* 97* 96* < > 101 CO2 -- 27 28 28 < > 26 BUN -- 6* 8 -- -- -- CREATININE -- 0.59* 0.53* -- -- -- GLUCOSE -- 180 144 -- -- -- CALCIUM -- 8.9 8.2* -- -- -- MAGNESIUM -- -- -- 0.80 -- 0.99 < > = values in this interval not displayed. Imaging *Personally reviewed and evaluated ASSESSMENT & RECOMMENDATIONS Latisha Felipe is a 70 y.o. female Recommendations: -Continue antibiotics -Monitor for CSF leak. Pt denies fluid from nose -[id number] testing if clear fluid rhinorrhea returns -Neurosurgery managing lumbar drain -ENT will follow. 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 Vancomycin Level - MAR Order Reminder NOT APPLICABLE Once ??? sodium chloride 1 g Oral TID ??? vancomycin 1 g Intravenous Q12H ??? amLODIPine 10 mg Oral Daily ??? FLUoxetine 40 mg Oral Daily ??? sodium chloride 0.9 % 5 mL Intravenous BID ??? docusate sodium 100 mg Oral BID ??? senna-docusate 2 tablet Oral BID ??? famotidine 20 mg Oral BID Or ??? famotidine 20 mg Intravenous BID ??? cefTRIAXone 2 g Intravenous Q12H ??? metroNIDAZOLE 500 mg Intravenous Q8H ??? losartan 100 mg Oral Daily ??? hydroCHLOROthiazide 25 mg Oral Daily ??? acetaminophen 1,000 mg Oral Q6H ??? heparin (porcine) 5,000 Units Subcutaneous 2 times per day Continuous Infusions: ??? niCARdipine EXAM: Temp: [36.4 ??C (97.5 ??F)-39 ??C (102.2 ??F)] Heart Rate: [74-86] Resp: [16-24] BP: (135-175)/(72-90) SpO2: [94 %-96 %] Heart Rate from SPO2: -- I/O: LD 177 cc GEN:NAD HEENT: cranial incision c/d/i. No evidence of erythema or drainage. No nuchal rigidity or photophobia R labial vesicular rash in V3 distribution NEURO: AA+Ox3 Spontaneous speech fluent and appropriate Naming and repetition intact PERRL. EOMI Mild R facial asymmetry (HB II) MOTOR EXAM: RUE: 5/5 RLE: 5/5 LUE: 5/5 LLe: 5/5 No pronator drift LT sensation intact x 4 ADB: abdominal fat graft incision c/d/i. No erythema or drainage Lab Results Component Value Date/Time WBC 24.0 (H) 03/18/2016 03:23 AM HGB 12.1 03/18/2016 03:23 AM PLATELET 289 03/18/2016 03:23 AM Lab Results Component Value Date/Time NA 136 03/17/2016 05:15 PM K 3.4 (L) 03/18/2016 03:23 AM CL 93 (L) 03/17/2016 05:15 PM CO2 27 03/17/2016 05:15 PM BUN 6 (L) 03/17/2016 05:15 PM CREATININE 0.59 (L) 03/17/2016 05:15 PM A/P: 70 y/o female s/p R suboccipital crani- for resection of a vestibular schwannoma now admitted w/ CSF rhinorrhea complicated by meningitis. CSF clx negative to date but profile concerning for infection in addition to clinical presentation. Now s/p lumbar drain for CSF diversion and abx. Cultures re-sent as patient febrile; will consult ID. - Neurologic monitoring Q2 - c/w lumbar drain. Target output 10-15cc/hr - Elevate HOB > 30. Monitor for CSF rhinorrhea - Maintain SBP < 160 - No respiratory issues - GI prophylaxis - ADAT - Monitor electrolytes Q6 - 3% hypertonic saline for hyponatremia. Target Na 138-145 - HLIVF - voiding spontaneously - SQH for DVT chemoprophylaxis. Will hold prior to removal of lumbar drain - vancomycin/ceftriaxone/flagyl. Follow c/x - ID c/s - Mobilize * Kimi Juan A - 03/17/2016 3:30 PM EST Nutrition Services - Initial Note Latisha Felipe : 1945 AGE: 70 y.o. Patient Active Problem List Diagnosis Date Noted ??? Hospital-CSF leak 03/14/2016 ??? Acoustic neuroma 02/02/2016 ??? 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 Assessment: Nursing reported a poor appetite today without difficulty chewing or swallowing. She istolerating current diet without nausea or vomiting. Discussed supplement drinks with nursing staff,will send boost shakes with meals to help increase pt appetite. At this time no questions. Nutrition Plan: Continue current diet. Recommend Daily Multi Vitamins. Boost compact x2 Monitor weight. Encourage good po intake. Support and encouragement provided. Nutrition services to follow weekly thru hospital course unless consulted in the interim. TINA Lawson * Tato Espitia Jr., MD - 03/17/2016 11:41 AM EST OTOLARYNGOLOGY - HEAD & NECK SURGERY CONSULT NOTE Name: Latisha Felipe Age/Sex: 70 y.o. female ENT Attending: Dr. Aguilera Hospital Day: 4 History of Present Illness We are seeing Latishavioleta Felipe today at the request of Iván Davis MD regarding CSF leak s/p schwannoma resection on 03/03. Problem List Patient Active Problem List Diagnosis Code ??? 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 Acoustic neuroma D33.3 ??? CSF leak G96.0 Past Medical History Past Medical History Diagnosis Date ??? CLL (chronic lymphocytic leukemia) ??? CPA (cerebellopontine angle) tumor Past Surgical History Past Surgical History Procedure Laterality Date ??? Pro endoscopic us exam, esoph N/A 02/09/2016 UPPER EUS- ENDOSCOPIC ULTRASOUND performed by Rigoberto Angel MD at [facility] ENDOSCOPY ??? Pro tissue grafts, other (e.g. autologous fat graft) N/A 03/03/2016 TISSUE GRAFT, PARATENON, FAT, DERMIS (OTHER) performed by Iván Chaves MD at [facility] MAIN OR ??? Pro excis infratent cp angle tumor Right 03/03/2016 @CRANIECTOMY, EXC. CEREBELLOPONTINE ANGLE TUMOR performed by Iván Chaves MD at [facility] MAIN OR ??? Pro microsurg techniques, req oper microscope N/A 03/03/2016 MICROSCOPE USE performed by Iván Chaves MD at [facility] MAIN OR ??? Pro excis transtemp cp angle tumor 03/03/2016 @CRANIECTOMY,TRANSTEMPORAL- ACOUSTIC NEUROMA performed by Norman Aguilera MD at [facility] MAIN OR Medications & Allergies No current facility-administered medications on file prior to encounter. Current Outpatient Prescriptions on File Prior to Encounter Medication Sig Dispense Refill ??? acetaminophen (TYLENOL) 325 mg Tablet Take 2 tablets by mouth every 4 hours. 30 tablet 1 ??? dexamethasone (DECADRON) 1 mg Tablet Take 4 tablets by mouth See Admin Instructions. Taper as follows: 4 tab BID x 3d, 2 tab BID x 3d, 1 tab BID x 3d, 1 tab daily x 3d, Stop 45 tablet 0 ??? famotidine (PEPCID) 20 mg Tablet Take 1 tablet by mouth every 12 hours. 30 tablet 12 ??? oxyCODONE (ROXICODONE) 5 mg Tablet Take 1 tablet by mouth every 4 hours as needed for Pain. 30 tablet 0 ??? polyethylene glycol (MIRALAX) 17 gram Powder in Packet Take 17 g by mouth daily as needed. 14 each 0 ??? albuterol (PROVENTIL HFA;VENTOLIN HFA;PROAIR) 90 mcg/actuation HFA Aerosol Inhaler Inhale 2 puffs into the lungs every 4 hours as needed for Wheezing. Use with spacer ??? FLUoxetine (PROZAC) 20 mg Tablet Take 40 mg by mouth daily. ??? losartan-hydrochlorothiazide (HYZAAR) 100-25 mg Tablet Take 1 tablet by mouth daily. ??? amLODIPine (NORVASC) 10 mg Tablet Take 10 mg by mouth daily. ??? LORazepam (ATIVAN) 0.5 mg Tablet Take 0.5 mg by mouth every 6 hours as needed for Anxiety. ??? KRILL OIL ORAL Take by mouth daily. ??? FOLIC ACID/MULTIVIT-MIN/LUTEIN (CENTRUM SILVER ORAL) Take by mouth daily. ??? CALCIUM CARBONATE/VITAMIN D3 (CALTRATE 600 + D ORAL) Take by mouth daily. Sulfa (sulfonamide antibiotics) Social History Lives in [place] [id number] Social History Social History ??? Marital status: Spouse name: N/A ??? Number of children: N/A ??? Years of education: N/A Occupational History ??? Not on file. Social History Main Topics ??? Smoking status: Former Smoker Packs/day: 0.50 Years: 15.00 Types: Cigarettes ??? Smokeless tobacco: Never Used Comment: quit ??? Alcohol use Yes Comment: wine nightly ??? Drug use: No ??? Sexual activity: Not on file Other Topics Concern ??? Not on file Social History Narrative Family History History reviewed. No pertinent family history. Vitals Last value 24hr Range Temperature: 38.7 ??C (101.7 ??F) Temp: [37.3 ??C (99.1 ??F)-39.3 ??C (102.7 ??F)] Heart Rate: 86 Heart Rate: [70-94] Blood Pressure: 155/75 BP: (121-167)/(59-83) Respiratory Rate: 16 Resp: [13-22] SpO2: 95 % SpO2: [92 %-97 %] Physical Exam General: NAD Head: cranial incision c/d/i. No evidence of erythema or drainage. No nuchal rigidity or photophobia R labial vesicular rash in V3 distribution Nose: Patent nares, grossly normal appearance Oral Cavity/Pharynx: Mucosa is pink, oropharynx symmetric Neck: Soft, trachea midline Neuro: Alert & oriented, moving extremities x 4 Procedures Labs Recent Labs 03/17/16 0530 03/16/16 2324 03/16/16 0527 03/15/16 0315 03/14/16 2235 WBC 23.7* -- -- -- -- 31.8* 49.4* HGB 11.1* -- -- -- -- 11.0* 12.8 HCT 32.3* -- -- -- -- 31.1* 36.1 PLATELET 249 -- -- -- -- 213 313 PT -- -- -- -- -- -- 13.2 INR -- -- -- -- -- -- 1.0 PTT -- -- -- -- -- -- 27 NA 136 137 < > 143 < > 132* 129* K 3.6 3.0* < > 3.1* < > 2.6* 3.3* CL 97* 96* < > 101 < > 94* 87* CO2 28 28 < > 26 < > 21* 23 BUN 8 -- -- -- -- 8 10 CREATININE 0.53* -- -- -- -- 0.47* 0.60* GLUCOSE 144 -- -- -- -- 167 196 CALCIUM 8.2* -- -- -- -- 6.5* 8.0* MAGNESIUM -- 0.80 -- 0.99 < > -- -- < > = values in this interval not displayed. Imaging *Personally reviewed and evaluated ASSESSMENT & RECOMMENDATIONS Latisha Felipe is a 70 y.o. female Recommendations: 1. Continue antibiotics 2. Mnitor for CSF leak 3. Neurosurgery managing lumbar drain 4. ENT will follow. Please page with questions or concerns __ Tato Espitia Jr, MD, PGY1 03/17/16 11:41 AM * Jose Woodadr RN - 03/17/2016 8:15 AM EST Notified team of critical values Neucleated Cells and Neutrophil count in CSF both high * Jarrod Quintanilla - 03/17/2016 7:07 AM EST NEUROSURGERY PROGRESS NOTE ID: 70 y/o female s/p R suboccipital crani- for resection of vestibular schwannoma on 03/03 complicated by CSF rhinorrhea and meningitis INTERVAL Hx: - No acute issues - Neurologically stable - Febrile (Tm 38.7) - No rhinorrhea MEDICATIONS: Scheduled Meds: ??? [START ON 03/18/2016] Vancomycin Level - MAR Order Reminder NOT APPLICABLE Once ??? vancomycin 1 g Intravenous Q12H ??? amLODIPine 10 mg Oral Daily ??? FLUoxetine 40 mg Oral Daily ??? sodium chloride 0.9 % 5 mL Intravenous BID ??? docusate sodium 100 mg Oral BID ??? senna-docusate 2 tablet Oral BID ??? famotidine 20 mg Oral BID Or ??? famotidine 20 mg Intravenous BID ??? cefTRIAXone 2 g Intravenous Q12H ??? metroNIDAZOLE 500 mg Intravenous Q8H ??? losartan 100 mg Oral Daily ??? hydroCHLOROthiazide 25 mg Oral Daily ??? acetaminophen 1,000 mg Oral Q6H ??? heparin (porcine) 5,000 Units Subcutaneous 2 times per day Continuous Infusions: ??? niCARdipine ??? sodium chloride 30 mL/hr (03/16/16 1159) EXAM: Temp: [37.2 ??C (99 ??F)-39.3 ??C (102.7 ??F)] Heart Rate: [69-94] Resp: [13-22] BP: (118-167)/(59-83) SpO2: [92 %-97 %] Heart Rate from SPO2: -- I/O: LD 200 cc GEN:NAD HEENT: cranial incision c/d/i. No evidence of erythema or drainage. No nuchal rigidity or photophobia R labial vesicular rash in V3 distribution NEURO: AA+Ox3 Spontaneous speech fluent and appropriate Naming and repetition intact PERRL. EOMI Mild R facial asymmetry (HB II) MOTOR EXAM: RUE: 5/5 RLE: 5/5 LUE: 5/5 LLe: 5/5 No pronator drift LT sensation intact x 4 ADB: abdominal fat graft incision c/d/i. No erythema or drainage Lab Results Component Value Date/Time WBC 23.7 (H) 03/17/2016 05:30 AM HGB 11.1 (L) 03/17/2016 05:30 AM PLATELET 249 03/17/2016 05:30 AM Lab Results Component Value Date/Time NA 136 03/17/2016 05:30 AM K 3.6 03/17/2016 05:30 AM CL 97 (L) 03/17/2016 05:30 AM CO2 28 03/17/2016 05:30 AM BUN 8 03/17/2016 05:30 AM CREATININE 0.53 (L) 03/17/2016 05:30 AM A/P: 70 y/o female s/p R suboccipital crani- for resection of a vestibular schwannoma now admitted w/ CSF rhinorrhea complicated by meningitis. CSF clx negative to date but profile concerning for infection in addition to clinical presentation. Now s/p lumbar drain for CSF diversion and abx. - Neurologic monitoring Q2 - c/w lumbar drain. Target output 10-15cc/hr - Elevate HOB > 30. Monitor for CSF rhinorrhea - Maintain SBP < 160 - No respiratory issues - GI prophylaxis - ADAT - Monitor electrolytes Q6 - 3% hypertonic saline for hyponatremia. Target Na 138-145 - HLIVF - voiding spontaneously - SQH for DVT chemoprophylaxis. Will hold prior to removal of lumbar drain - vancomycin/ceftriaxone/flagyl. Follow c/x - Mobilize * Jacky Briones - 03/16/2016 7:23 PM EST Water Resource Engineer Encounter Note Patient Name: Latisha Felipe : [id number] MR#: [id number] Admit Date: 03/14/2016 10:10 PM Hospital Day 2 days Narrative:Visited to introduce and assess acceptance of Water Resource Engineer services. Pt was awake, alert, oriented and in bed . Assessment: Patient coping positively with stresses of illness/hospitalization at this time. Pt seems coping well and hoping to get better and go home. Pt says that she is feeing better today and herfriend was there. 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 Pt asked for prayers and blessings. Intervention and Outcome: Provided emotional, spiritual support and encouraging presence. Water Resource Engineer services accepted.Conversation to build trusting relationship.Provided prayer.Provided pastoral presence. Follow-up: yes Time in Direct Care:15 Mins Jacky Briones 03/16/2016 * Jarrod Quintanilla - 03/16/2016 7:52 AM EST NEUROSURGERY PROGRESS NOTE ID: 70 y/o female s/p R suboccipital crani- for resection of vestibular schwannoma on 03/03 complicated by CSF rhinorrhea and meningitis INTERVAL Hx: - No acute issues - Neurologically stable - No rhinorrhea MEDICATIONS: Scheduled Meds: ??? Vancomycin Level - MAR Order Reminder NOT APPLICABLE Once ??? amLODIPine 10 mg Oral Daily ??? FLUoxetine 40 mg Oral Daily ??? sodium chloride 0.9 % 5 mL Intravenous BID ??? docusate sodium 100 mg Oral BID ??? senna-docusate 2 tablet Oral BID ??? famotidine 20 mg Oral BID Or ??? famotidine 20 mg Intravenous BID ??? cefTRIAXone 2 g Intravenous Q12H ??? metroNIDAZOLE 500 mg Intravenous Q8H ??? losartan 100 mg Oral Daily ??? hydroCHLOROthiazide 25 mg Oral Daily ??? vancomycin 500 mg Intravenous Q12H ??? acetaminophen 1,000 mg Oral Q6H ??? potassium chloride 20 mEq Oral BID ??? heparin (porcine) 5,000 Units Subcutaneous 2 times per day Continuous Infusions: ??? niCARdipine ??? sodium chloride 30 mL/hr (03/15/16 1831) EXAM: Temp: [36.7 ??C (98.1 ??F)-38.4 ??C (101.1 ??F)] Heart Rate: [64-92] Resp: [15-26] BP: (118-152)/(60-100) SpO2: [90 %-94 %] Heart Rate from SPO2: -- I/O: LD 140cc GEN:NAD HEENT: cranial incision c/d/i. No evidence of erythema or drainage. No nuchal rigidity or photophobia R labial vesicular rash in V3 distribution NEURO: AA+Ox3 Spontaneous speech fluent and appropriate Naming and repetition intact PERRL. EOMI Mild R facial asymmetry (HB II) MOTOR EXAM: RUE: 5/5 RLE: 5/5 LUE: 5/5 LLe: 5/5 No pronator drift LT sensation intact x 4 ADB: abdominal fat graft incision c/d/i. No erythema or drainage Lab Results Component Value Date/Time WBC 31.8 (CRIT) 03/15/2016 03:15 AM HGB 11.0 (L) 03/15/2016 03:15 AM PLATELET 213 03/15/2016 03:15 AM Lab Results Component Value Date/Time NA 143 03/16/2016 05:27 AM K 3.1 (L) 03/16/2016 05:27 AM CL 101 03/16/2016 05:27 AM CO2 26 03/16/2016 05:27 AM BUN 8 03/15/2016 03:15 AM CREATININE 0.47 (L) 03/15/2016 03:15 AM A/P: 70 y/o female s/p R suboccipital crani- for resection of a vestibular schwannoma now admitted w/ CSF rhinorrhea complicated by meningitis. CSF clx negative to date but profile concerning for infection in addition to clinical presentation. Now s/p lumbar drain for CSF diversion and abx. - Neurologic monitoring Q2 - c/w lumbar drain. Target output 10-15cc/hr - Elevate HOB > 30. Monitor for CSF rhinorrhea - Maintain SBP < 160 - No respiratory issues - GI prophylaxis - ADAT - Monitor electrolytes Q6 - 3% hypertonic saline for hyponatremia. Target Na 138-145 - HLIVF - voiding spontaneously - SQH for DVT chemoprophylaxis. Will hold prior to removal of lumbar drain - vancomycin/ceftriaxone/flagyle. Follow c/x - Mobilize * Ladonna Whiting RN - 03/15/2016 6:00 PM EST MD [place] notified of patient's report of increased back pain. Patient restless and sitting up and down in bed, drain momentarily clamped until patient no longer repositioning frequently. Patient remains neurologically intact. IV dilaudid ordered, patient states good response. * Jarrod Quintanilla - 03/15/2016 7:33 AM EST NEUROSURGERY PROGRESS NOTE ID: 70 y/o female s/p R suboccipital crani- for resection of vestibular schwannoma on 03/03 complicated by CSF rhinorrhea and meningitis INTERVAL Hx: - No acute issues - clinically improved this AM - lumbar drain for CSF leak - vancomycin/ceftriaxone/metronidazole for empiric tx of meningitis - MRI MEDICATIONS: Scheduled Meds: ??? amLODIPine 10 mg Oral Daily ??? FLUoxetine 40 mg Oral Daily ??? sodium chloride 0.9 % 5 mL Intravenous BID ??? docusate sodium 100 mg Oral BID ??? senna-docusate 2 tablet Oral BID ??? famotidine 20 mg Oral BID Or ??? famotidine 20 mg Intravenous BID ??? cefTRIAXone 2 g Intravenous Q12H ??? metroNIDAZOLE 500 mg Intravenous Q8H ??? losartan 100 mg Oral Daily ??? hydroCHLOROthiazide 25 mg Oral Daily ??? vancomycin 500 mg Intravenous Q12H ??? potassium chloride 10 mEq Intravenous Q1H Continuous Infusions: ??? sodium chloride 0.9% 75 mL/hr (03/15/16 015) ??? niCARdipine ??? sodium chloride 30 mL/hr (03/15/16 020) ??? sodium chloride 0.9% Stopped (03/15/16 045) ??? sodium chloride 0.9% 10 mL/hr (03/15/16 014) EXAM: Temp: [36.9 ??C (98.4 ??F)-38.3 ??C (100.9 ??F)] Heart Rate: [73-100] Resp: [13-31] BP: (113-182)/(55-94) SpO2: [92 %-98 %] Heart Rate from SPO2: [86 bpm-101 bpm] I/O: LD 25cc GEN:NAD HEENT: cranial incision c/d/i. No evidence of erythema or drainage. No nuchal rigidity or photophobia R labial vesicular rash in V3 distribution NEURO: AA+Ox3 Spontaneous speech fluent and appropriate Naming and repetition intact PERRL. EOMI Mild R facial asymmetry (HB II) MOTOR EXAM: RUE: 5/5 RLE: 5/5 LUE: 5/5 LLe: 5/5 No pronator drift LT sensation intact x 4 ADB: abdominal fat graft incision c/d/i. No erythema or drainage Lab Results Component Value Date/Time WBC 31.8 (CRIT) 03/15/2016 03:15 AM HGB 11.0 (L) 03/15/2016 03:15 AM PLATELET 213 03/15/2016 03:15 AM Lab Results Component Value Date/Time NA 132 (L) 03/15/2016 03:15 AM K 2.6 (CRIT) 03/15/2016 03:15 AM CL 94 (L) 03/15/2016 03:15 AM CO2 21 (L) 03/15/2016 03:15 AM BUN 8 03/15/2016 03:15 AM CREATININE 0.47 (L) 03/15/2016 03:15 AM A/P: 70 y/o female s/p R suboccipital crani- for resection of a vestibular schwannoma now admitted w/ CSF rhinorrhea complicated by meningitis. CSF clx negative to date but profile concerning for infection in addition to clinical presentation. Now s/p lumbar drain for CSF diversion and abx. - Neurologic monitoring Q2 - c/w lumbar drain. Target output 10-15cc/hr - Elevate HOB > 30. Monitor for CSF rhinorrhea - Maintain SBP < 160 - No respiratory issues - GI prophylaxis - ADAT - Monitor electrolytes Q6 - 3% hypertonic saline for hyponatremia. Target Na 138-145 - HLIVF - d/c duran catheter - SQH for DVT chemoprophylaxis. Will hold prior to removal of lumbar drain - vancomycin/ceftriaxone/flagyle. Follow c/x - Mobilize documented in this encounter H&P Notes * Jacky Mena MD - 03/15/2016 1:17 AM EST Critical Care - Admission Note History of Present Illness: Latisha Felipe is a 70 y.o. female s/p recent right-sided acoustic neuroma resection on 03/03/16who presents with gradually increasing headaches, neck stiffness, fevers and change in mental status (according to the friend accompanying her) while at home recovering from surgery. Had recently called neurosurgery clinic reporting clear fluid rhinorrhea when she bent forward. At [facility] she was found to have WBC [address] showing pneumocephalus; she received 2L IVF, dilaudid for pain control and no abx. Initial exam at [facility] notable for T 38.3C, HR 96, sats 92% on RA, pain with neck flexion but has full ROM. non-focal limited neuro exam. Was given toradol, tylenol for pain and received 1L fluids for tachycardia. On presentation to the ICU the patient is breathing on room air, stable and has had a lumbar drain placed by neurosurgery. ?? Past Medical History: History reviewed. No pertinent past medical history. Past Surgical History: Past Surgical History Procedure Laterality Date ??? Pro endoscopic us exam, esoph N/A 02/09/2016 UPPER EUS- ENDOSCOPIC ULTRASOUND performed by Rigoberto Angel MD at [facility] ENDOSCOPY ??? Pro tissue grafts, other (e.g. autologous fat graft) N/A 03/03/2016 TISSUE GRAFT, PARATENON, FAT, DERMIS (OTHER) performed by Iván Chaves MD at [facility] MAIN OR ??? Pro excis infratent cp angle tumor Right 03/03/2016 @CRANIECTOMY, EXC. CEREBELLOPONTINE ANGLE TUMOR performed by Iván Chaves MD at [facility] MAIN OR ??? Pro microsurg techniques, req oper microscope N/A 03/03/2016 MICROSCOPE USE performed by Iván Chaves MD at [facility] MAIN OR ??? Pro excis transtemp cp angle tumor 03/03/2016 @CRANIECTOMY,TRANSTEMPORAL- ACOUSTIC NEUROMA performed by Norman Aguilera MD at [facility] MAIN OR Prior To Admission Medications: Prescriptions Prior to Admission Medication Sig Dispense Refill Last Dose ??? acetaminophen (TYLENOL) 325 mg Tablet Take 2 tablets by mouth every 4 hours. 30 tablet 1 ??? dexamethasone (DECADRON) 1 mg Tablet Take 4 tablets by mouth See Admin Instructions. Taper as follows: 4 tab BID x 3d, 2 tab BID x 3d, 1 tab BID x 3d, 1 tab daily x 3d, Stop 45 tablet 0 ??? famotidine (PEPCID) 20 mg Tablet Take 1 tablet by mouth every 12 hours. 30 tablet 12 ??? oxyCODONE (ROXICODONE) 5 mg Tablet Take 1 tablet by mouth every 4 hours as needed for Pain. 30 tablet 0 ??? polyethylene glycol (MIRALAX) 17 gram Powder in Packet Take 17 g by mouth daily as needed. 14 each 0 ??? albuterol (PROVENTIL HFA;VENTOLIN HFA;PROAIR) 90 mcg/actuation HFA Aerosol Inhaler Inhale 2 puffs into the lungs every 4 hours as needed for Wheezing. Use with spacer More than a month at Unknowntime ??? FLUoxetine (PROZAC) 20 mg Tablet Take 40 mg by mouth daily. 03/03/2016 at Unknown time ??? losartan-hydrochlorothiazide (HYZAAR) 100-25 mg Tablet Take 1 tablet by mouth daily. 03/02/2016at Unknown time ??? amLODIPine (NORVASC) 10 mg Tablet Take 10 mg by mouth daily. 03/03/2016 at Unknown time ??? LORazepam (ATIVAN) 0.5 mg Tablet Take 0.5 mg by mouth every 6 hours as needed for Anxiety. PastMonth at Unknown time ??? KRILL OIL ORAL Take by mouth daily. Past Week at Unknown time ??? FOLIC ACID/MULTIVIT-MIN/LUTEIN (CENTRUM SILVER ORAL) Take by mouth daily. Past Week at Unknown time ??? CALCIUM CARBONATE/VITAMIN D3 (CALTRATE 600 + D ORAL) Take by mouth daily. Past Week at Unknown time Allergies: Allergies Allergen Reactions ??? Sulfa (Sulfonamide Antibiotics) Rash HIGH FEVER Family History: History reviewed. No pertinent family history. Social History and Habits: Social History Social History ??? Marital status: Spouse name: N/A ??? Number of children: N/A ??? Years of education: N/A Occupational History ??? Not on file. Social History Main Topics ??? Smoking status: Former Smoker Packs/day: 0.50 Years: 15.00 Types: Cigarettes ??? Smokeless tobacco: Never Used Comment: quit ??? Alcohol use Yes Comment: wine nightly ??? Drug use: No ??? Sexual activity: Not on file Other Topics Concern ??? 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) Laboratory (Last 24 Hours): Recent Results (from the past 24 hour(s)) Basic Metabolic Panel (non-fasting) Result Value Ref Range Glucose Lvl 196 65 - 199 mg/dL BUN 10 8 - 18 mg/dL Creatinine 0.60 (L) 0.70 - 1.20 mg/dL Sodium 129 (L) 135 - 145 mmol/L Potassium 3.3 (L) 3.5 - 5.0 mmol/L Chloride 87 (L) 98 - 107 mmol/L CO2 23 22 - 31 mmol/L Anion Gap 19 (H) 5 - 15 mmol/L Calcium 8.0 (L) 8.5 - 10.5 mg/dL Estimated GFR >60 >=60 Prothrombin Time Result Value Ref Range PT 13.2 12.0 - 15.0 sec INR 1.0 0.9 - 1.1 APTT Result Value Ref Range PTT 27 25 - 35 sec Cortisol Result Value Ref Range Cortisol 55.9 mcg/dL Hemogram Result Value Ref Range WBC 49.4 (CRIT) 4.0 - 9.5 x10(3)/mcL RBC 4.27 4.00 - 5.21 x10(6)/mcL Hemoglobin 12.8 11.7 - 15.5 gm/dL Hematocrit 36.1 35.7 - 45.8 % MCV 84.5 82.6 - 94.4 fL MCH 30.0 27.1 - 32.0 pg MCHC 35.5 (H) 31.7 - 35.0 gm/dL Platelets 313 145 - 357 x10(3)/mcL RDWSD 39.2 37.0 - 46.0 fL RDWCV 12.9 11.5 - 14.1 % MPV 8.5 7.6 - 12.9 fL nRBC % Auto 0.0 % nRBC Abs Auto 0.000 0.000 - 0.000 x10(3)/mcL Differential, Automated Result Value Ref Range Neutrophils % 51.5 % Neutr Abs (ANC) 25.44 (H) 1.70 - 6.10 x10(3)/mcL Lymphocytes % 41.5 % Lymphocytes Abs 20.5 (H) 0.9 - 3.2 x10(3)/mcL Monocytes % 4.9 % Monocyte Abs 2.4 (H) 0.3 - 0.9 x10(3)/mcL Eosinophils % 0.0 % Eosinophils Abs 0.0 0.0 - 0.4 x10(3)/mcL Basophils % 0.0 % Basophils Abs 0.0 0.0 - 0.1 x10(3)/mcL Immature Gran % 2.10 % Elizabeth Gran Abs 1.03 (H) 0.00 - 0.04 x10(3)/mcL Gold Tube HOLD Result Value Ref Range Gold Hold Sample in lab. Scan, Peripheral Blood Result Value Ref Range Plat Estimate Normal RBC Morphology Abnormal Ovalocytes 1-5 /HPF Smudge Cells Present L-Lactate2 Whole Blood Result Value Ref Range Lactate WB 2.6 (H) 0.5 - 2.2 mmol/L Radiology: Mri Brain With/wo Contrast (generic) Result Date: 03/15/2016 1. No acute intracranial abnormality. Specifically no evidence of intracranial abscess. 2. Expectedpostoperative changes and focal size of pneumocephalus which may be postoperative but can be seen in CSF leak. Xr Chest Pa & Lateral (generic) Result Date: 03/14/2016 No acute cardiopulmonary abnormalities. Assessment/Plan: Latisha Felipe is a 70 y.o. female with history of CLL, CP angle tumor and recent right-sided acoustic neuroma resection on 03/03/16 who now presents with CSF leak vs. meningitis vs encephalitis. Neuro: - q1h neuro checks; - pain: acetaminophen - prozac -3% NS hold for Na>145 CV: SBP 100-160 -amlodipine -nicardapine -anti-htn: hydrochlorothiazide, losartan, hydralazine, labetalol Pulm: No active issues FEN/GI: - diet: NPO diet (Give Meds) - IVF: NS 75cc/h - antiemetics: zofran : Duran in place, continue to monitor UOP Endo: no active issues ID: -flagyl -vanc -ceftriaxone - f/u cx and csf studies Heme: no active issues PPx: - GI: Pepcid, pericolace, coalce, lactulose, miralax - Heme: SCDs, holding anticoagulation Lines: -lumbar drain -duran -PIV Disp: full code, admit to ICU, Critical Care Red 2 Primary service: Neurosurgery Jacky Mena MD 03/15/2016 Associated attestation - Trav Henriquez MD - 03/15/2016 2:55 AM EST I have seen the patient and reviewed the resident's above history and I agree with the details as written. The assessment and plan were formulated in discussion with me and I agree with them as documented. 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 She had also reported some fluid draining from her nose. Neurosurgery has assessed the patient and placed a lumbar drain. Pertinent Exam: Heart rate is regular, breath sounds are equal bilateral. CN intact with exception of some right facial asymmetry. Bilateral lathmaker strength 5/5. WBC is up to 49,000 and sodium is 129. Major issues addressed: Plan: CSF leak being managed by lumbar drain Meningitis: being treated with ceftriaxone, vancomycin and flagyl with culture data pending. Continue q1 hour neuro checks Hyponatremia: on 3% saline drip and will follow electrolytes with q6 hour labs documented in this encounter Procedure Notes * Stephan Melendez RN - 03/22/2016 3:12 PM ESTAssociated Order(s): [facility] PICC REWIRE PICC/Midline Insertion Procedure Note REWIRE FROM DOUBLE TO SINGLE LUMEN Indications: Anti-infective This insertion was not to replace a malfunctioning catheter. This insertion was not due to a suspected line-associated infection. Location of Procedure: X-Ray Room 11 Risks and Benefits: The risks and benefits of this procedure were reviewed and informed consent was obtained obtained. Time Out: Prior to the start of the procedure, the patient's identity, intended procedure, site/side, correctpatient positioning and presence of the site junior was confirmed as applicable. The medical history and chart were reviewed to rule out potential contraindications to the planned procedure. 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 Catheter type: PICC Lot number: [id number] Procedure Technique: Skin was prepped with chlorhexidine. Skin preparation agent was completely dry at the time of first skin puncture. The following barrier precaution methods were used:large sterile drape, maske/eye shield, large sterile gown, sterile gloves and cap. ZERO ml of 1% Lidocaine was used for skin wheal. Ultrasound was not used for guidance. Radiographiccontrast agent was not injected for vein identification. Procedure Details: Order received for catheter placement. A 4 Fr. single lumen Bard Power catheter was placed into theright basilic vein over a 0.018 inch guidewire using modified seldinger technique and fluoroscopy. Arm circumference was 23 cm at 2 cm above the insertion site. Final catheter length (with trimming): 35 cm Internal: 35 cm External: 0 cm Tip in SVC per DR. GIBBONS The line was not placed over a guidewire. Post Procedure: Diagnosis: CSF LEAK Blood return noted on aspiration of line after placement confirmed. 3 mls of normal saline infused free flowing to gravity via PICC after insertion. Sterile dressing applied: CHG Impregnated Tegaderm. Findings: The patient did tolerate the procedure well. No Complications. Procedure Comments: REWIRE FROM DOUBLE TO SINGLE LUMEN STEPHAN MELENDEZ RN 03/22/2016 * Harleen Agrawal RN - 03/18/2016 8:22 AM ESTAssociated Order(s): PLACE PICC LINE: CONTACT VASCULAR ACCESS PICC/Midline Insertion Procedure Note Indications: Anti-infective, Access and Medication Administration This insertion was not to replace a malfunctioning catheter. This insertion was not due to a suspected line-associated infection. Location of Procedure: X-Ray Room 11 Risks and Benefits: The risks and benefits of this procedure were reviewed and informed consent was obtained obtained. Time Out: Prior to the start of the procedure, the patient's identity, intended procedure, site/side, correctpatient positioning and presence of the site junior was confirmed as applicable. The medical history and chart were reviewed to rule out potential contraindications to the planned procedure. 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 Catheter type: PICC Lot number: [id number] Procedure Technique: Skin was prepped with chlorhexidine. Skin preparation agent was completely dry at the time of first skin puncture. The following barrier precaution methods were used:large sterile drape, maske/eye shield, large sterile gown, sterile gloves and cap. 2 ml of 1% Lidocaine was used for skin wheal. Ultrasound was used for guidance. Radiographic contrast agent was not injected for vein identification. Procedure Details: Order received for catheter placement. A 5 Fr. double lumen Bard Power catheter was placed into theright basilic vein over a 0.018 inch guidewire using modified seldinger technique and fluoroscopy. Arm circumference was 24 cm at 2 cm above the insertion site. Final catheter length (with trimming): 34 cm Internal: 34 cm External: 0 cm Tip in SVC per Dr. Montejo The line was not placed over a guidewire. Post Procedure: Diagnosis: RIGHT SUBOCCIPITAL CRANI Blood return noted on aspiration of line after placement confirmed. 5 mls of normal saline infused free flowing to gravity via PICC after insertion. Sterile dressing applied: CHG Impregnated Tegaderm. Findings: The patient did tolerate the procedure well. No Complications. Procedure Comments: HARLEEN AGRAWAL RN 03/18/2016 Yaya Barrios MD - 03/15/2016 1:26 AM ESTProcedure(s): LUMBAR DRAIN PLACEMENT Pre-Procedure Diagnose(s): CSF leak Neurosurgery - Lumbar Drain Placement Note Resident: Jeanie Attending: Dr. Chaves Procedure: Lumbar Drain Indications: CSF drainage and sampling Description: Consent for this procedure was obtained after explaining the specific indication and risks. A time out was performed prior to the procedure. The patient was placed in the left lateral decubitus position with knees to chest. Illiac crests were palpated bilaterally and the L4/L5 interspace was identified. The area was marked and prepped with chlorhexidine x 3, and the site draped in a sterile fashion. The spinal needle was advanced into the thecal sac which took 1 attempt(s). CSF wasobtained which appeared cloudy. The catheter was subsequently advanced 15cm through the needle intothe thecal sac. At this time flow through the distal catheter was observed. The needle was withdrawn and the catheter was secured to the skin with tagederm. The distal catheter was attached to the reservoir and flow was again verified. The site was covered with Tegaderm. Complications: None Procedure time: 30 mins documented in this encounter ED Notes * Bogdan Stiles - 03/15/2016 12:47 AM EST ED BRIEF NOTE: This 70 y.o. female was transferred from an outside hospital emergency department to receive specialty care provided by the neurosurgery service for suspected post-surgical meningitis. I have reviewed the records from the outside hospital, the patients vitals as recorded in the electronic medical record, and ED nursing notes. 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 Was sleepy but rousable. OSH CT head w/ and w/o showed pneumocephalus. OSH labs notable forWBC 38K. Got 2L IVF, dilaudid for pain control. Did not receive abx per neurosurgery at [facility]. At the time of my involvement, neurosurgery was already actively involved, writing orders. Focused Exam: VS notable for T 38.3C, HR 96, sats 92% on RA. Appears sleepy but certainly rousable;pain with neck flexion but has full ROM. Limited neuro exam non-focal. ED Directed Interventions: patient received 30mg IV toradol and 650mg oral tylenol for pain and fever reduction, respectively, prior to going for MRI. Patient had duran placed as well prior to MRI. Patient was given 1L NS for tachycardia. I discussed the case with the resident/fellow of the accepting service. The patient was deemed to be stable and not require further involvement from the attending emergency physician at this time. The accepting service has assumed further care of the patient. Please see their notes for any further clinical details and subsequent course. Bogdan Stiles MD PGY-1 03/15/2016 12:59 AM Bogdan Stiles MD Resident 03/15/16 0857 * Shiva Sewell MD - 03/15/2016 12:24 AM EST Brief Attending Note I cared for the patient with the resident physician. Please see Dr. Stiles's note, associated withthe encounter, for more details. HPI: Latisha Felipe is a 70 y.o. who presents to the ED with fever and headache neck pain and altered mental status. Postoperative from acoustic neuroma resection neurosurgery at this institution. Shehad been healing well postoperative but this morning had holoacranial headache, neck pain, and some altered mental status according to her friend who accompanies her. She was taken to [facility], where she had a CT scan showing slight pneumocephalus which was negative postoperative or secondary to possible CSF leak. She was transferred here for neurosurgical evaluation. She is still complaining of a headache. She has a history of CLL, with baseline white blood cell counts 17-19 by report, 38 today with 1% bandemia. She was not given antibiotics. ROS: Pertinent positives and negatives are included in the history of present illness, otherwise 10 systems are reviewed and negative Gen: Ill-appearing, alert and oriented ??2 HENT: Perhaps mild meningismus Pulm: CTA naomi, no respiratory distress Card: RRR Abd: soft, nt Skin: warm and dry Neuro: speech fluent, no obvious deficit MS: No obvious deformity Psych: Normal mood Assessment: Patient was transferred here for neurosurgical evaluation of headache neck pain postoperative from acoustic neuroma resection. Her exam is somewhat concerning for a ECONOMIC DEVELOPMENT COORDINATOR infection. Neurosurgery will admit the patient to their service. They recommend against antibiotics at present, given their plan to urgently obtain a CSF sample tonight. Shiva Sewell MD 03/15/16 0029 * Tran Ludwig RN - 03/15/2016 12:13 AM EST Neuro sx at bedside for lumbar drain placement. * Tran Ludwig RN - 03/14/2016 10:33 PM EST Neuro sx at bedside, aware of pt's vital signs and mental status. documented in this encounter Miscellaneous Notes * Plan of Care - Emeli Alegria RN - 03/23/2016 4:52 AM EST Problem: Patient Care Overview Goal: Plan of Care Review 03/21/16 1422 03/22/161999 Plan of Care Review Progress improving -- Coping/Psychosocial Plan Of Care Reviewed With -- patient OUTCOME EVALUATION NOTE: OUTCOME SUMMARY: Patient is alert and oriented and can follow directions. She is down to a single lumen picc which flushes well. She is no longer on scheduled tylenol and T-max up to 38.0. Will continue to monitor PLAN MOVING FORWARD: Encourage ambulation. Continue to monitor patient's temperature. Continue to monitor patient's mental status. INDIVIDUALIZED FALL PREVENTION INTERVENTIONS: Patient-specific fall risk factors per assessment: [current deficits]: Patient is a bit deconditioned which places her at moderate risk for falling Assistance [level of assistance required for transfers and ambulation]: 1 assist. We are encouraging her not to utilize the walker per PT Supervision [direct monitoring required during toileting and ADLs]: Arms reach Surveillance [continuous indirect monitoring]: Purposeful rounding Patient-specific fall prevention interventions for sensory deficits provided, if applicable: [X] N/A CPG GOAL OUTCOME EVALUATION: Goal: Individualization & Mutuality 03/15/16 1546 Mutuality/Individual Preferences What Anxieties, Fears or Concerns Do You Have About Your Health or Care? None What Questions Do You Have About Your Health or Care? None What Information Would Help Us Give You More Personalized Care? None Goal: Fall Prevention-Safe Patient Handling 03/16/16 1726 03/22/16 1500 03/22/161999 Daily Care Interventions Self-Care Promotion -- -- -- Musculoskeletal Interventions Muscle Strengthening activity/mobility promoted -- -- Garvey Fall Risk History of Falling -- -- 0 Secondary Diagnosis -- -- 15 Ambulatory Aids -- -- 15 Intravenous Therapy/Heparin/Saline Lock -- -- 20 Gait/Transferring -- -- 0 Mental Status -- -- 0 Score -- -- 50 Activity and Safety Assistive Device -- None -- OTHER Garvey Fall Risk -- -- High Restraint Interventions Safety Promotion/Fall Prevention -- -- -- Positioning Body Position -- -- -- 03/23/16199 Daily Care Interventions Self-Care Promotion independence encouraged Musculoskeletal Interventions Muscle Strengthening -- Garvey Fall Risk History of Falling -- Secondary Diagnosis -- Ambulatory Aids -- Intravenous Therapy/Heparin/Saline Lock -- Gait/Transferring -- Mental Status -- Score -- Activity and Safety Assistive Device -- OTHER Garvey Fall Risk -- Restraint Interventions Safety Promotion/Fall Prevention activity supervised;fall prevention program maintained;nonskid shoes/slippers when out of bed Positioning Body Position independent Goal: Infection Control 03/22/16199903/23/16199 Safety Interventions Isolation Precautions -- standard precautions maintained Infection Prevention -- rest/sleep promoted Coping Strategies Supportive Measures active listening utilized -- Goal: Discharge Needs Assessment 03/15/16 1548 03/18/16 0531 03/19/16 1909 Discharge Needs Assessment Concerns To Be Addressed -- no discharge needs identified -- Readmission Within The Last 30 Days -- no previous admission in last 30 days -- Equipment Needed After Discharge -- -- -- Discharge Facility/Level Of Care Needs -- -- -- Discharge Planning Comments -- -- to son's home with 24 hour family support is the plan. Current Health Anticipated Changes Related to Illness -- none -- Activity/Self Care Review of Systems Equipment Currently Used at Home -- none -- Living Environment Transportation Available family or friend will provide -- -- 03/21/16 1422 03/21/16 1615 Discharge Needs Assessment Concerns To Be Addressed -- -- Readmission Within The Last 30 Days -- -- Equipment Needed After Discharge -- shower chair Discharge Facility/Level Of Care Needs other (see comments) (home with family support and home health) -- Discharge Planning Comments -- -- Current Health Anticipated Changes Related to Illness -- -- Activity/Self Care Review of Systems Equipment Currently Used at Home -- -- Living Environment Transportation Available -- -- Goal: Interdisciplinary Rounds/Family Conf 03/21/16 1343 Interdisciplinary Rounds/Family Conf Participants nursing Problem: Skin Integrity Impairment, Risk/Actual (Adult) Intervention: Promote/Optimize Nutrition 03/20/162228 Hygiene Care Oral Care teeth brushed Intervention: Prevent/Manage Excess Moisture 03/20/16222803/22/16 0807 03/22/161999 Hygiene Care Perineal Care absorbent pad changed -- -- Bathing/Skin Care -- linen changed;shampoo;shower -- Skin Interventions Skin Protection -- -- tubing/devices free from skin contact Intervention: Prevent/Minimize Sheer/Friction Injuries 03/21/16 1800 03/22/161999 Skin Interventions Pressure Reduction Devices -- pressure-redistributing mattress utilized Pressure Reduction Techniques -- frequent weight shift encouraged Positioning Positioning/Transfer Devices pillows -- Goal: Skin Integrity/Wound Healing Patient will demonstrate the desired outcomes by discharge/transition of care. 03/21/16 1343 Skin Integrity Impairment, Risk/Actual (Adult) Skin Integrity/Wound Healing making progress toward outcome Problem: Infection, Risk/Actual (Adult) Intervention: Manage Suspected/Actual Infection 03/20/16222803/23/16 0200 Safety Interventions Infection Management aseptic technique maintained -- Safety Interventions Isolation Precautions -- standard precautions maintained Intervention: Prevent Infection/Maximize Resistance 03/20/16222803/21/16 1000 03/22/16 0807 Pain/Comfort/Sleep Interventions Sleep/Rest Enhancement -- -- -- Hygiene Care Oral Care teeth brushed -- -- Perineal Care absorbent pad changed -- -- Bathing/Skin Care -- -- linen changed;shampoo;shower Nutrition Interventions Glycemic Management -- oral glucose given -- 03/22/161999 Pain/Comfort/Sleep Interventions Sleep/Rest Enhancement awakenings minimized;noise level reduced Hygiene Care Oral Care -- Perineal Care -- Bathing/Skin Care -- Nutrition Interventions Glycemic Management -- Goal: Infection Prevention/Resolution Patient will demonstrate the desired outcomes by discharge/transition of care. 03/21/16 1343 Infection, Risk/Actual (Adult) Infection Prevention/Resolution making progress toward outcome Problem: Health Knowledge, Opportunity to Enhance (Adult,NICU,[place],Obstetrics,Pediatric) Intervention: Enhance Health Knowledge 03/22/16 0807 03/22/161999 Coping Strategies Supportive Measures -- active listening utilized Family/Support System Care involvement promoted;self-care encouraged -- Goal: Identify Related Risk Factors and Signs and Symptoms Related risk factors and signs and symptoms are identified upon initiation of Human Response Clinical Practice Guideline (CPG) 03/19/16 1843 Health Knowledge, Opportunity to Enhance Health Knowledge, Opportunity for Enhanced: Related Risk Factors communication barrier Signs and Symptoms (Health Knowledge Enhance) knowledge/skill deficiency * Plan of Care - Ariela Bustillo RN - 03/22/2016 6:12 PM EST Problem: Patient Care Overview Goal: Plan of Care Review Outcome: Ongoing (Interventions Implemented as Appropriate) 03/21/16 1422 03/22/16 0807 Plan of Care Review Progress improving -- Coping/Psychosocial Plan Of Care Reviewed With -- patient OUTCOME EVALUATION NOTE: OUTCOME SUMMARY: Pt alert and oriented throughout day. Friends at bedside on and off. Worked with OT. IV antibioticscontinued. PICC changed from double lumen to single lumen. Up walking unit multiple times. Fall precautions maintained. PLAN MOVING FORWARD: Continue antibiotics, encourage walks INDIVIDUALIZED FALL PREVENTION INTERVENTIONS: Patient-specific fall risk factors per assessment: no deficits at this time Assistance: SBA Supervision: Eyes on Surveillance: Bed locked in low position, call bautista within reach, purposeful hourly rounding, clutter free environment, bed alarm on, family at bedside Patient-specific fall prevention interventions for sensory deficits provided: Yes CPG GOAL OUTCOME EVALUATION: Continue care plan as documented. * Plan of Care - Stephan Melendez RN - 03/22/2016 4:03 PM EST Problem: Health Knowledge, Opportunity to Enhance (Adult,NICU,,Obstetrics,Pediatric) Goal: Knowledgeable about Health Subject/Topic Patient will demonstrate the desired outcomes by discharge/transition of care. Outcome: Outcome (s) achieved Date Met: 03/22/16 Peripherally Inserted Central Catheter (PICC) Teaching Sheet Peripherally inserted central catheters ([id number]) (PICC) are used when you need IV (intravenous) medicines and fluids. A catheter is a small flexible plastic tube. The catheter is put in througha vein under your skin. A vein is a tube inside your body that carries blood from the body to the heart. The catheter is usually put into a vein on the inside of your upper arm. Then it is threaded up this vein and ends in the blood vessel near your heart. The PICC catheter may be used for taking blood for laboratory tests. You may also get IV fluids andmedicines quickly and easily. Having the catheter may keep your arm from being stuck many times with a needle. The catheter will have 1-3 small tails (tubes) coming from your arm where the catheter was put in. Why do I need a PICC line or midline catheter? PICC lines are used for usp treatments. PICC lines may be used for up to a year. They areoften put in to give you IV medicines at home. You may need a PICC catheter because caregivers cannot use smaller veins in your body. Smaller veins may be damaged, or they may have poor blood flow. ??? Catheters are also used in case of emergency when you would need medicines or fluids very quickly. ??? The following are medicines and treatments you may get when you have a PICC line. ? Antibiotics. These are medicines to prevent infection. ? Frequent blood sample collection. ? IV medicines that would make your smaller veins sore or damaged. ? Receiving IV fluids for a long period of time. ? Pain medicine. ? Total Parenteral Nutrition: This is also called TPN. TPN is a special liquid food that goes directly into your veins. ? Blood ? Chemotherapy (Medicine for cancer) What are the benefits of having a PICC line put in? Having a PICC line may keep your arm from being stuck many times with a needle to draw blood orstart an IV (intravenous catheter) . ??? Through a PICC catheter, you may have blood taken for tests. You may also get IV fluids and medicines quickly and easily. ??? Small veins can be damaged or irritated by certain drugs or nutritional solutions. A PICC line helps to decrease vein irritation from antibiotics, IV pain drugs, or IV cancer drugs. ??? A PICC line can be left in place when you go home. If you go home with a PICC line in place, home care can be set up via the nurse Manager Infusion to help you. What are possible complications of having a PICC line put in? Some possible complications are: ??? bruising, swelling, or infection in the arm with the PICC line ??? mal-positioned catheter (catheter tip in wrong place) ??? occlusion (blocked catheter) ??? mechanical phlebitis (vein irritation) and thrombosis (clot) Your doctor is the person you should talk to if you have questions about what would happen if you do not choose to have a PICC line put in. Your doctor can talk to you about other choices you may have. What should I expect when it is put in? A written consent that gives your ok to have it put in needs to be signed after you understand thatyou are going to have a PICC put in, and all your questions about the procedure have been answered to your satisfaction. This is a safety feature that the hospital practices before doing procedures. An experienced nurse who has been through special training and education will be putting this catheter in. The procedure is done in a specially equipped room in Interventional Radiology on the third floor. The PICC nurse will first talk to you about any questions that you may have. The PICC nurse will explain to you what is going to be done before starting. Once you arrive in the procedure room in Interventional Radiology, the PICC nurse will then set up for the procedure. She will unwrap the sterile kit and open the needed supplies. A gown and mask andgloves will be worn while putting it in. An ultrasound machine will be used to help guide the catheter in the right place. This machine uses a handle with sound waves to find the vein. The area on your arm where the catheter will be put in is then numbed with a medicine put under your skin with a tiny needle. The nurse will then put in the catheter using fluoroscopy (a type of x-ray) as a guide. Once the catheter is in your vein, it will be threaded up your arm to the area beforeyour heart. While it is being threaded, you may be asked to turn your head. When the catheter is in, the nurse will place a small dressing on the site along with a little simpson which will help keep the catheter in place. After the procedure is done, a radiologist (doctor in x-ray department) will look at your x-ray to make sure that the end of the catheter is in proper position to give your fluids and/or medications. What should I expect in the care of my PICC? A dressing that is specially made to prevent infections will be put on. After this, the dressing will only be changed once a week unless it needs it sooner. If you go home with the catheter in, you may take a shower as long as you keep the site dry. You can do this by wearing a specially fitted PICC protector that will be provided to you before dischargefrom the hospital. The dressing at the site must be kept clean and dry. It is important that you watch for signs of infection at the site. Your healthcare provider should be notified if these occur: ??? Redness ??? Swelling ??? Pus ??? Pain at the site Other reasons to notify your healthcare provider are: ??? Catheter becomes partially or totally removed ??? Unable to infuse medication/fluid ??? Unable to draw back blood from the catheter. This may be an early sign that a clot is forming on the end of the catheter. If this occurs, a medicine called Cathflo may be used to dissolve this clot. Ask the PICC nurse or your doctor, any questions you may have so you feel secure in consenting to having a PICC line. References: Vascular Access Device Selection, Insertion, and Management, [employer] Systems 01/05. A Review of the Efficacy, Safety, Use, and Administration of Cathflo, [employer] 2005 * Consult Note - Celena Jama RPH - 03/22/2016 2:38 PM EST Clinical Pharmacist Note-Vanc Latisha Julian Matteo [phone] Latishavioleta Felipe is a 70 y.o. female is being monitored due to antibiotic therapy which includes intravenous vancomycin. ?? Vancomycin has been discontinued. The pharmacist-managed vancomycin consult service will sign-off and vancomycin therapy, if it is to be continued, must be ordered by the responsible prescriber. Pharmacists??? therapeutic drug monitoring will continue for patients receiving vancomycin. Should specific assistance be needed regarding re-initation or continuation of vancomycin therapy, please page the care area pharmacist with any questions you may have. Alternately, during off-hours you may call [phone] to contact a pharmacist. CELENA JAMA RPH Pager [phone] * Plan of Care - Emeli Alegria RN - 03/22/2016 4:12 AM EST Problem: Patient Care Overview Goal: Plan of Care Review 03/21/16 1422 03/21/161999 Plan of Care Review Progress improving -- Coping/Psychosocial Plan Of Care Reviewed With -- patient OUTCOME EVALUATION NOTE: OUTCOME SUMMARY: Patient alert and oriented. Complaints of mild pain. Steady with rolling walker. PLAN MOVING FORWARD: Continue to monitor mental status and continue to monitor pain. INDIVIDUALIZED FALL PREVENTION INTERVENTIONS: Patient-specific fall risk factors per assessment: [current deficits]: Patient had recent CSF leak,she is utilizing a rolling walker and because of this and IV interventions she is at moderate to high risk for falling Assistance [level of assistance required for transfers and ambulation]: 1 with rolling walker Supervision [direct monitoring required during toileting and ADLs]: Stand by Surveillance [continuous indirect monitoring]: Purposeful rounding Patient-specific fall prevention interventions for sensory deficits provided, if applicable: [X] N/A CPG GOAL OUTCOME EVALUATION: Goal: Individualization & Mutuality 03/15/16 1546 Mutuality/Individual Preferences What Anxieties, Fears or Concerns Do You Have About Your Health or Care? None What Questions Do You Have About Your Health or Care? None What Information Would Help Us Give You More Personalized Care? None Goal: Fall Prevention-Safe Patient Handling 03/16/16 1726 03/21/16 1000 03/21/161999 Daily Care Interventions Self-Care Promotion -- independence encouraged -- Musculoskeletal Interventions Muscle Strengthening activity/mobility promoted -- -- Garvey Fall Risk History of Falling -- -- 0 Secondary Diagnosis -- -- 15 Ambulatory Aids -- -- 0 Intravenous Therapy/Heparin/Saline Lock -- -- 20 Gait/Transferring -- -- 10 Mental Status -- -- 0 Score -- -- 45 OTHER Garvey Fall Risk -- High -- Restraint Interventions Safety Promotion/Fall Prevention -- -- activity supervised;nonskid shoes/slippers when out of bed Positioning Body Position -- -- independent Goal: Infection Control 03/21/16 1800 03/21/161999 Safety Interventions Isolation Precautions standard precautions maintained -- Infection Prevention rest/sleep promoted -- Coping Strategies Supportive Measures -- active listening utilized Goal: Discharge Needs Assessment 03/15/16 1548 03/18/16 0531 03/19/16 1909 Discharge Needs Assessment Concerns To Be Addressed -- no discharge needs identified -- Readmission Within The Last 30 Days -- no previous admission in last 30 days -- Equipment Needed After Discharge -- -- -- Discharge Facility/Level Of Care Needs -- -- -- Discharge Planning Comments -- -- to son's home with 24 hour family support is the plan. Current Health Anticipated Changes Related to Illness -- none -- Activity/Self Care Review of Systems Equipment Currently Used at Home -- none -- Living Environment Transportation Available family or friend will provide -- -- 03/21/16 1422 03/21/16 1615 Discharge Needs Assessment Concerns To Be Addressed -- -- Readmission Within The Last 30 Days -- -- Equipment Needed After Discharge -- shower chair Discharge Facility/Level Of Care Needs other (see comments) (home with family support and home health) -- Discharge Planning Comments -- -- Current Health Anticipated Changes Related to Illness -- -- Activity/Self Care Review of Systems Equipment Currently Used at Home -- -- Living Environment Transportation Available -- -- Problem: Skin Integrity Impairment, Risk/Actual (Adult) Intervention: Promote/Optimize Nutrition 03/20/162228 Hygiene Care Oral Care teeth brushed Intervention: Prevent/Manage Excess Moisture 03/20/16222803/21/16 0900 03/21/161999 Hygiene Care Perineal Care absorbent pad changed -- -- Bathing/Skin Care -- linen changed -- Skin Interventions Skin Protection -- -- tubing/devices free from skin contact Intervention: Prevent/Minimize Sheer/Friction Injuries 03/21/16 1000 03/21/16 1800 03/21/161999 Skin Interventions Pressure Reduction Devices -- -- pressure-redistributing mattress utilized Pressure Reduction Techniques heels elevated off bed -- -- Positioning Positioning/Transfer Devices -- pillows -- Goal: Skin Integrity/Wound Healing Patient will demonstrate the desired outcomes by discharge/transition of care. 03/21/16 1343 Skin Integrity Impairment, Risk/Actual (Adult) Skin Integrity/Wound Healing making progress toward outcome Problem: Infection, Risk/Actual (Adult) Intervention: Manage Suspected/Actual Infection 03/20/16222803/21/16 1800 Safety Interventions Infection Management aseptic technique maintained -- Safety Interventions Isolation Precautions -- standard precautions maintained Intervention: Prevent Infection/Maximize Resistance 03/20/16 2229 03/21/16 0900 03/21/16 1000 Pain/Comfort/Sleep Interventions Sleep/Rest Enhancement awakenings minimized -- -- Hygiene Care Oral Care teeth brushed -- -- Perineal Care absorbent pad changed -- -- Bathing/Skin Care -- linen changed -- Nutrition Interventions Glycemic Management -- -- oral glucose given Goal: Infection Prevention/Resolution Patient will demonstrate the desired outcomes by discharge/transition of care. 03/21/16 1343 Infection, Risk/Actual (Adult) Infection Prevention/Resolution making progress toward outcome Problem: Health Knowledge, Opportunity to Enhance (Adult,NICU,,Obstetrics,Pediatric) Intervention: Enhance Health Knowledge 03/21/16 1000 03/21/161999 Coping Strategies Supportive Measures -- active listening utilized Family/Support System Care involvement promoted -- * Plan of Care - Teresa Dyson, PT - 03/21/2016 2:53 PM EST Problem: Patient Care Overview Goal: Plan of Care Review Outcome: Ongoing (Interventions Implemented as Appropriate) 03/21/16 1422 Plan of Care Review Progress improving Coping/Psychosocial Plan Of Care Reviewed With other (see comments);patient (son and friend Norma present) Physical Therapy Assessment Pt seen for skilled PT Treatment Number: 2 Please see the Rehab Evaluation Summaries report for objective data and specifics of today???s session. Pt completed navigation of 3 stairs today with CGA. Decreased activity tolerance noted and reduced patient confidence reported. Issued retail loss prevention officer. Pt not yet ready to attempt ambulation without FWW however reports trying not to rely on it. Headache throughout session and fatigued at end of session. Please see discharge recommendations below. Staff Mobility Recommendations: one assist with FWW versus no device Precautions/considerations: HOB 30 degrees, fall risk Anticipated Physical Therapy Frequency: 3-5 times/wk Anticipated Equipment Needs at Discharge: front wheeled walker Anticipated Discharge Disposition: home with home health, home with assist, other (see comments) (son's house) Pager: [phone] TERESA DYSON, PT 03/21/2016 Inpatient Physical Therapy Goal: Discharge Needs Assessment Outcome: Ongoing (Interventions Implemented as Appropriate) 03/21/161421 Discharge Needs Assessment Discharge Facility/Level Of Care Needs other (see comments) (home with family support and home health) Problem: Acute Rehab Services Goal & Intervention Plan Goal: Bed Mobility Goal Stand Alone Therapy Goal Outcome: Outcome (s) achieved Date Met: 03/21/16 03/19/16190803/21/161421 Bed Mobility Goal Bed Mobility Goal, Date Established 03/19/16 -- Bed Mobility Goal, Additional Goal Supine<->sit with HOB up 30 degrees as ordered independently to allow for a safe d/c -- Bed Mobility Goal, Date Goal Reviewed -- 03/21/16 Bed Mobility Goal, Outcome Achieved -- goal met Goal: Gait Training Goal Stand Alone Therapy Goal Outcome: Ongoing (Interventions Implemented as Appropriate) 03/19/16190803/21/161421 Gait Training Goal Gait Training Goal, Date Established 03/19/16 -- Gait Training Goal, Time to Achieve 1 wk -- Gait Training Goal, Dent Level independent -- Gait Training Goal, Assist Device walker, rolling -- Gait Training Goal, Distance to Achieve 200 ft -- Gait Training Goal, Additional Goal up and down 12 stairs with a rail with supervision to allow fora safe d/c to son's home with support. -- Gait Training Goal, Date Goal Reviewed -- 03/21/16 Gait Training Goal, Outcome -- goal ongoing Gait Training Goal, Reason Goal Not Met -- other (see comments) (progressing) Goal: Goal Transfer Training Stand Alone Therapy Goal Outcome: Ongoing (Interventions Implemented as Appropriate) 03/19/16190803/21/161421 Goal Transfer Training Transfer Training Goal, Date Established 03/19/16 -- Transfer Training Goal, Time to Achieve 1 wk -- Transfer Training Goal, Activity Type vme-ak-zeoyi/gfdjn-dc-ski;qzx-ah-ufirv/sxwdh-nr-hfj -- Transfer Train Goal, Dent Level independent -- Transfer Training Goal, Assist Device walker, rolling -- Transfer Train Goal, Date Goal Reviewed -- 03/21/16 Transfer Training Goal, Outcome -- goal ongoing Transfer Train Goal, Reason Goal Not Met -- other (see comments) (progressing) * Plan of Care - Caitlin Siddiqui OT - 03/21/2016 2:45 PM EST Problem: Patient Care Overview Goal: Plan of Care Review Outcome: Ongoing (Interventions Implemented as Appropriate) 03/21/16142103/21/16 1445 Plan of Care Review Progress improving -- Coping/Psychosocial Plan Of Care Reviewed With -- patient;friend;son Occupational Therapy Treatment Note Visit #2 Assessment: Pt seen for OT intervention today, primarily focused on pt/family education. Pt declined all OOB activity due to headache/fatigue following removal of lumbar drain. Pt's son and friend Norma were present throughout the session and very supportive. Reviewed section of pt's acoustic neuroma education packet focused on visual exercises pt had been performing at home prior to this admission. Pt verbalized understanding of exercises but was unable to tolerate participation today; would benefit from reviewing again. Pt/family participated in skilled discussion of d/c planning including problem-solving bathing - pt plans to use a stall shower on the 1st floor of her son's home and wouldbenefit from a shower chair. Pt will benefit from ongoing therapeutic interventions to achieve pt'sand therapy goals. Please refer to associated flowsheet data for treatment session details. Anticipate pt will be able to safely d/c home with support from family and VNA services. Pager: [phone] Caitlin Siddiqui OT 03/21/2016 Occupational Therapy Rehabilitation Department Goal: Discharge Needs Assessment Outcome: Ongoing (Interventions Implemented as Appropriate) 03/21/16142103/21/16 1615 Discharge Needs Assessment Equipment Needed After Discharge -- shower chair Discharge Facility/Level Of Care Needs other (see comments) (home with family support and home health) -- Problem: Acute Rehab Services Goal & Intervention Plan Goal: Bathing Goal Stand Alone Therapy Goal Outcome: Ongoing (Interventions Implemented as Appropriate) 03/19/16202503/21/16 1615 Bathing Goal Bathing Goal, Date Established 03/19/16 -- Bathing Goal, Time to Achieve 2 wks -- Bathing Goal, Activity Type Mod I standing in shower -- Bathing Goal, Outcome -- goal ongoing Goal: Grooming Goal Stand Alone Therapy Goal Outcome: Ongoing (Interventions Implemented as Appropriate) 03/19/16202503/21/16 161 Grooming Goal Grooming Goal, Date Established 03/19/16 -- Grooming Goal, Time to Achieve 2 wks -- Grooming Goal, Activity Type Mod I standing in bathroom with stable vitals -- Grooming Goal, Outcome -- goal ongoing Goal: Toileting Goal Stand Alone Therapy Goal Outcome: Ongoing (Interventions Implemented as Appropriate) 03/19/16202503/21/16 1615 Toileting Goal Toileting Goal, Date Established 03/19/16 -- Toileting Goal, Time to Achieve 2 wks -- Toileting Goal, Activity Type Mod I with clothing in bathroom -- Toileting Goal, Outcome -- goal ongoing Goal: UB Dressing Goal Stand Alone Therapy Goal Outcome: Ongoing (Interventions Implemented as Appropriate) 03/19/16202503/21/16 1615 UB Dressing Goal UB Dressing Goal, Date Established 03/19/16 -- UB Dressing Goal, Time to Achieve 2 wks -- UB Dressing Goal, Activity Type Mod I in standing -- UB Dressing Goal, Outcome -- goal ongoing * Plan of Care - Trav Reynoso RN - 03/21/2016 1:52 PM EST Problem: Patient Care Overview Goal: Plan of Care Review Outcome: Ongoing (Interventions Implemented as Appropriate) 03/21/16 1346 Plan of Care Review Progress progress toward functional goals as expected Coping/Psychosocial Plan Of Care Reviewed With patient OUTCOME EVALUATION NOTE: OUTCOME SUMMARY: Patient alert and oriented x four this morning, patient complains of slight headache pain which hasresponded well to oxycodone. Patient also complains of slight R facial numbness though she says this is slightly better. Patient's lumbar drain taken out by the PA this morning, patient up ambulatingto the BR and voiding without difficulty. PO intake encourage though patient complains of poor appetite. PLAN MOVING FORWARD: Patient Transferred to room 503 at this time, all belongings transferred with patient and face to face report given to RN taking over care INDIVIDUALIZED FALL PREVENTION INTERVENTIONS: Patient-specific fall risk factors per assessment: [current deficits]: Recent lumbar drain Assistance [level of assistance required for transfers and ambulation]: Standby Supervision [direct monitoring required during toileting and ADLs]: Arms reach Surveillance [continuous indirect monitoring]: Pulse oximetry Patient-specific fall prevention interventions for sensory deficits provided, if applicable: CPG GOAL OUTCOME EVALUATION: * Consult Note - Italo Wilson MD - 03/21/2016 1:45 PM EST INFECTIOUS DISEASE INITIAL CONSULT NOTE Reason for Consult: CSF leak post acoustic neuroma resection with concern for infection Consulting Service: Neurosurgery Consulting Attending: Iván Chaves MD Admission Date: 03/14/2016 History of Present Illness: 70 y.o. 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 We have been consulted to assist with management. Ms. 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 The procedure was apparently uncomplicated and she was discharged on 03/06. She does report that she was having occasional drips of clear fluid from her nose since the procedure. She was recovering at home but then developed severe headache, neck stiffness, nausea and vomiting. She was checking her temperature at home, which reached a Tmax of 101. She went to [facility] where she was found to have a leukocytosis to [address] head with pneumocephalus. A urine culture was checked, which was negative, and she was not given antibiotics. She was transferred to [facility] for neurosurgical evaluation on 03/14. Here, she was febrile to 38.3 but had stable vital signs. Her labs were significant for a WBC count of 49.4. She had a lumbar drain placed on 03/15 with cloudy fluid removed. The fluid was significant for 4448 nucleated cells, 83% neutrophils, 855 protein, 37 glucose, and was sent for culture. Blood cultures were also obtained and she was started on ceftriaxone, metronidazole, and vancomycin. The blood and CSF cultures have been negative, but she has been clinically improving. She has been evaluated by ENT and at this point, her CSF leak appears to have stopped. In terms of her CLL, she is not actively receiving treatment for it. She states that her baseline WBC count is 17 to 19. Review of Systems: Constitutional: +Fever. Denies chills, night sweats HEENT: +Headache as above. Denies sore throat, nasal congestion Cardiovascular: Denies chest pain, pressure or palp Respiratory: Denies SOB, cough GI: +N/V. Denies dysphagia, abdominal pain, D/C : Denies dysuria Musculoskeletal: Denies myalgias or arthralgias Skin: No skin complaints, rash Neurological: No focal weakness, numbness or tingling Allergies: Allergies Allergen Reactions ??? Sulfa (Sulfonamide Antibiotics) Rash HIGH FEVER Pertinent Medications: Ceftriaxone 2g IV q12hr (03/15- ) Metronidazole 500mg IV q8hr (03/15- ) Vancomycin (03/15- ) Past Medical and Surgical History: Past Medical History Diagnosis Date ??? CLL (chronic lymphocytic leukemia) ??? CPA (cerebellopontine angle) tumor Past Surgical History Procedure Laterality Date ??? Pro endoscopic us exam, esoph N/A 02/09/2016 UPPER EUS- ENDOSCOPIC ULTRASOUND performed by Rigoberto Angel MD at [facility] ENDOSCOPY ??? Pro tissue grafts, other (e.g. autologous fat graft) N/A 03/03/2016 TISSUE GRAFT, PARATENON, FAT, DERMIS (OTHER) performed by Iván Chaves MD at [facility] MAIN OR ??? Pro excis infratent cp angle tumor Right 03/03/2016 @CRANIECTOMY, EXC. CEREBELLOPONTINE ANGLE TUMOR performed by Iván Chaves MD at [facility] MAIN OR ??? Pro microsurg techniques, req oper microscope N/A 03/03/2016 MICROSCOPE USE performed by Iván Chaves MD at [facility] MAIN OR ??? Pro excis transtemp cp angle tumor 03/03/2016 @CRANIECTOMY,TRANSTEMPORAL- ACOUSTIC NEUROMA performed by Norman Aguilera MD at [facility] MAIN OR Social History and Habits: - Lives alone, with 1 dog and 2 cats - Works for [employer], travels frequently to [place], [place], [place], [place] - Denies tobacco - Drinks about 2 drinks a day Physical Exam: Last value Range last 24 hrs Temperature Temp: 37.8 ??C (100 ??F) Temp: [36.7 ??C (98.1 ??F)-38.3 ??C (100.9 ??F)] Heart Rate Heart Rate: 95 Heart Rate: [95] Blood Pressure BP: 149/89 BP: (138-170)/(70-107) Respiratory Rate Resp: 16 Resp: [16-18] SpO2 SpO2: 97 % SpO2: [92 %-97 %] I/O last 3 completed shifts: In: 3372 [P.O.:2340; I.V.:1032] Out: 3225 [Urine:3080; Other:145] Patient Vitals for the past 168 hrs: Weight 03/15/16 1543 63.3 kg (139 lb 8.8 oz) 03/15/16 0110 63.3 kg (139 lb 8.8 oz) 03/14/16 2223 65.3 kg (144 lb) General: NAD, laying comfortably in bed HEENT: PERRL, EOM intact. R sided labial herpetic lesion. Oropharynx clear with no lesions, MM moist, neck with mild discomfort with forward flexion. Cardiovascular: Normal S1 and S2, 2/6 systolic murmur at 2nd intercostal space Respiratory: CTA b/l, no wheezes or crackles Abd: Normoactive BS, soft, NT, ND Extrem: No LE edema Neuro: A&Ox3, 5/5 strength in UEs and LEs b/l Skin: Warm and dry with facial lesion Laboratory: Recent Labs 03/21/16 0600 03/20/16 0543 03/19/16 0130 WBC 20.2* 24.4* 21.0* HGB 12.2 12.8 12.8 HCT 35.5* 38.0 37.4 PLATELET 204 251 254 Recent Labs 03/21/16 0600 03/20/16 0742 03/19/16 1800 NA 141 137 135 K 3.4* 3.5 3.7 CL 97* 96* 97* CO2 26 24 25 BUN 10 16 18 CREATININE 0.60* 0.61* 0.66* Recent Labs 03/21/16 0600 03/20/16 0742 03/19/16 1800 CALCIUM 8.7 8.5 8.6 Component Value Date/Time SPGRAVITYUA 1.013 03/17/2016 1111 PHUADIP 7.0 03/17/2016 1111 PROTEINUADIP Negative 03/17/2016 1111 GLUCOSEU 150 (A) 03/17/2016 1111 KETONESUA Negative 03/17/2016 1111 UROBILIUADIP Normal 03/17/2016 1111 BLOODUADIP Negative 03/17/2016 1111 NITRATEUA Negative 03/17/2016 1111 LEUKOESTERUA Negative 03/17/2016 1111 WBCUA 1 03/17/2016 1111 BILIRUBINUA Negative 03/17/2016 1111 LPs: Date Nucleated cells % Neutrophils RBCs Protein Glucose 03/15 4448 83 70 855 37 03/17 5638 91 5469 252 30 Microbiology: 03/14: Blood--negative 03/15: Blood--negative 03/17: Blood--negative 03/15: CSF--negative 03/17: CSF--NGTD Radiology/Studies/Procedures: 03/14: MRI brain--1. Mild leptomeningeal enhancement about the posterior fossa. Differential diagnosis includes postoperative inflammatory changes and meningitis. No evidence of intracranial abscess. 2. Persistent pneumocephalus which may be postoperative but can be seen in CSF leak. Assessment: Latisha Felipe is a 70 y.o. 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 Her presentation and CSF studies were very consistent with a post- operative meningitis. Interestingly, despite not getting antibiotics prior to her lumbar drain, her cultures here have all been negative. She has improved on her current regimen of ceftriaxone, metronidazole, and vancomycin, suggesting that whatever the culprit is,it is being treated by at least one of those drugs. This rules out resistant gram negatives and Listeria. MRSA seems unlikely as it should have grown on culture. With the CSF leak, this could be secondary to Haemophilus or Strep pneumoniae. Additionally, a more fastidious organism like an oral anaerobe is also a possibility. Ultimately, we will likely need to treat her empirically. She should stay on vancomycin and ceftriaxone for now, but the metronidazole can be switched to oral. She continues to have low-grade fevers, and we would like to see her fever curve improve prior to coming up witha final discharge plan. If she continues to have fevers, more of a work-up may be needed for the source. 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 Recommendations: - Continue ceftriaxone and vancomycin for now - Change metronidazole to 500mg PO TID - Monitor fever curve - Give valacyclovir 1g PO BID x 1 day Check if applies or comment Post-discharge IV antibiotic preparation checklist X Anticipating the need for [facility] IV abx X OK to place single-lumen PICC line Date final culture data expected Need to discuss concerns re adequate source control Any additional requirements needed for OPAT OPAT order placed. Please be sure the IV antibiotic is also on to the d/c med list. X Recommendations discussed with the primary treating team. ID consult service will continue to follow patient. Page us at [phone] with any further questions or concerns. Recommendations are above and were discussed with the primary treating team. ID will sign off. Please page if further consultation required. This patient was seen and discussed with ID attending Dr. Steve Denise MD Fellow, Infectious Disease 03/21/2016 Pager [phone] I interviewed, examined and discussed the patient with Dr. Denise, with whose findings and recommendations I concur. The recent episode of meningitis is presumably secondary to CSF leak, so microbiology would most likely be related to the site of leak; but that the cultures are negative is surprising, as are the persistent fevers despite improvement otherwise. Would thus continue broad spectrum antimicrobials as per Dr. Denise, with further w/u based on clinical course. Italo Wilson MD * Plan of Care - Jose Woodard RN - 03/21/2016 6:51 AM EST Problem: Patient Care Overview Goal: Plan of Care Review Outcome: Ongoing (Interventions Implemented as Appropriate) 03/19/16 7495 03/20/16 9737 Plan of Care Review Progress progress toward functional goals as expected -- Coping/Psychosocial Plan Of Care Reviewed With -- patient OUTCOME EVALUATION NOTE: OUTCOME SUMMARY: Pt did not have severe headache tonight. Pt reported two minor headaches. Pt goal under 160 systolic required txt once with 20 mg of labetalol. Pt requested to speak with a member of the team to getthe full picture of care. Pt has tolerated being clamped. PLAN MOVING FORWARD: Continue to monitor for CSF leak at drain site or from nose or ear. INDIVIDUALIZED FALL PREVENTION INTERVENTIONS: Patient-specific fall risk factors per assessment: urine urgency Assistanc SBA, Supervision: Eyes on, Surveillance: Bed locked in low position, call bautista within reach, purposeful hourly rounding, clutter free environment, bed/chair alarm on, family at bedside Patient-specific fall prevention interventions for sensory deficits provided: N/A CPG GOAL OUTCOME EVALUATION: Continue care plan as documented. Goal: Individualization & Mutuality Outcome: Ongoing (Interventions Implemented as Appropriate) 03/15/16 1546 Mutuality/Individual Preferences What Anxieties, Fears or Concerns Do You Have About Your Health or Care? None What Questions Do You Have About Your Health or Care? None What Information Would Help Us Give You More Personalized Care? None Goal: Fall Prevention-Safe Patient Handling Outcome: Ongoing (Interventions Implemented as Appropriate) 03/16/16 1726 03/20/16 1800 03/20/16 2229 Daily Care Interventions Self-Care Promotion -- independence encouraged -- Musculoskeletal Interventions Muscle Strengthening activity/mobility promoted -- -- Garvey Fall Risk History of Falling -- -- 0 Secondary Diagnosis -- -- 15 Ambulatory Aids -- -- 0 Intravenous Therapy/Heparin/Saline Lock -- -- 20 Gait/Transferring -- -- 10 Mental Status -- -- 0 Score -- -- 45 OTHER Garvey Fall Risk -- -- High Restraint Interventions Safety Promotion/Fall Prevention -- -- fall prevention program maintained Positioning Body Position -- -- independent Goal: Infection Control Outcome: Ongoing (Interventions Implemented as Appropriate) 03/20/16 2229 Safety Interventions Isolation Precautions standard precautions maintained Infection Prevention barrier precautions utilized;rest/sleep promoted Coping Strategies Supportive Measures active listening utilized;positive reinforcement provided Goal: Discharge Needs Assessment Outcome: Ongoing (Interventions Implemented as Appropriate) 03/15/16 1548 03/18/16 0531 03/19/16 1909 Discharge Needs Assessment Concerns To Be Addressed -- no discharge needs identified -- Readmission Within The Last 30 Days -- no previous admission in last 30 days -- Equipment Needed After Discharge -- -- -- Discharge Planning Comments -- -- to son's home with 24 hour family support is the plan. Current Health Anticipated Changes Related to Illness -- none -- Activity/Self Care Review of Systems Equipment Currently Used at Home -- none -- Living Environment Transportation Available family or friend will provide -- -- 03/19/162025 Discharge Needs Assessment Concerns To Be Addressed -- Readmission Within The Last 30 Days -- Equipment Needed After Discharge walker, rolling;shower chair Discharge Planning Comments -- Current Health Anticipated Changes Related to Illness -- Activity/Self Care Review of Systems Equipment Currently Used at Home -- Living Environment Transportation Available -- Goal: Interdisciplinary Rounds/Family Conf Outcome: Ongoing (Interventions Implemented as Appropriate) 03/18/16 0531 Interdisciplinary Rounds/Family Conf Participants nursing Problem: Skin Integrity Impairment, Risk/Actual (Adult) Goal: Skin Integrity/Wound Healing Patient will demonstrate the desired outcomes by discharge/transition of care. Outcome: Ongoing (Interventions Implemented as Appropriate) 03/20/16 1703 Skin Integrity Impairment, Risk/Actual (Adult) Skin Integrity/Wound Healing making progress toward outcome Problem: Infection, Risk/Actual (Adult) Goal: Infection Prevention/Resolution Patient will demonstrate the desired outcomes by discharge/transition of care. Outcome: Ongoing (Interventions Implemented as Appropriate) 03/20/16 1703 Infection, Risk/Actual (Adult) Infection Prevention/Resolution making progress toward outcome * Plan of Care - Sol Song RN - 03/20/2016 5:30 PM EST Problem: Patient Care Overview Goal: Plan of Care Review Outcome: Ongoing (Interventions Implemented as Appropriate) 03/19/16 1857 03/20/16 0718 Plan of Care Review Progress progress toward functional goals as expected -- Coping/Psychosocial Plan Of Care Reviewed With -- patient OUTCOME EVALUATION NOTE: OUTCOME SUMMARY: Pain well controlled today with PRN oxycodone and flexeril. Lumbar drain clamped per order. Drain checked for patency Q4hr - Dressing is intact with dried/saturated dressing that is unchanged from the previous shift. Pt ambulated the unit x2 today with one assist and did full wash up. PLAN MOVING FORWARD: Continue to monitor patient. INDIVIDUALIZED FALL PREVENTION INTERVENTIONS: Patient-specific fall risk factors per assessment: [current deficits]: LD for CSF leak Assistance [level of assistance required for transfers and ambulation]: 1- Assist, device Supervision [direct monitoring required during toileting and ADLs]: Eyes on, Hands on Surveillance [continuous indirect monitoring]: Room free of clutter, bed in low locked position, LDsign above bed, bed alarm on and call bautista in reach. Patient-specific fall prevention interventions for sensory deficits provided, if applicable: [X] Yes CPG GOAL OUTCOME EVALUATION: Goal: Fall Prevention-Safe Patient Handling Outcome: Ongoing (Interventions Implemented as Appropriate) 03/16/16 1726 03/20/16 1400 Musculoskeletal Interventions Muscle Strengthening activity/mobility promoted -- Restraint Interventions Safety Promotion/Fall Prevention -- fall prevention program maintained;nonskid shoes/slippers when out of bed;safety round/check completed;activity supervised Positioning Body Position -- independent Goal: Infection Control Outcome: Ongoing (Interventions Implemented as Appropriate) 03/19/16199903/20/16 0718 Safety Interventions Isolation Precautions -- standard precautions maintained Infection Prevention environmental surveillance performed;personal protective equipment utilized;rest/sleep promoted;single patient room provided -- Coping Strategies Supportive Measures -- active listening utilized;decision-making supported;self- responsibility promoted Problem: Skin Integrity Impairment, Risk/Actual (Adult) Goal: Skin Integrity/Wound Healing Patient will demonstrate the desired outcomes by discharge/transition of care. Outcome: Ongoing (Interventions Implemented as Appropriate) 03/20/16 1703 Skin Integrity Impairment, Risk/Actual (Adult) Skin Integrity/Wound Healing making progress toward outcome Problem: Infection, Risk/Actual (Adult) Goal: Infection Prevention/Resolution Patient will demonstrate the desired outcomes by discharge/transition of care. Outcome: Ongoing (Interventions Implemented as Appropriate) 03/20/16 1703 Infection, Risk/Actual (Adult) Infection Prevention/Resolution making progress toward outcome * Plan of Care - Vikas Hsieh RN - 03/20/2016 4:37 AM EST Problem: Patient Care Overview Goal: Plan of Care Review Outcome: Ongoing (Interventions Implemented as Appropriate) 03/19/16 1857 03/19/161999 Plan of Care Review Progress progress toward functional goals as expected -- Coping/Psychosocial Plan Of Care Reviewed With -- patient OUTCOME EVALUATION NOTE: OUTCOME SUMMARY: Patient remains A&O x 4, with eyes maintaining perrla status. Strengths 5/5 bilaterally. Cooperative with care. Sleep disturbed overnight. Given atarax and melatonin PRN for sleep. No increased drainage noted in dressing for lumbar drain. CSF clear yellow, moderate production. DLP continues to maintain CDI dressing, with no irritation to patient. + Bowel sounds and passing flatus, no bowel movement. Given PRN bisacodyl PO and polyethyline glycol with no effect at this time. Safety maintained, will continue to monitor. Addendum: Positive effect bowel movement with PRN bisacodyl DC. PLAN MOVING FORWARD: Continue ABX treatments, continue to monitor drain output. Continue to address pain and sleep. Ambulate patient. Continue to monitor. Maintain safety. Address bowel movement issue. INDIVIDUALIZED FALL PREVENTION INTERVENTIONS: Patient-specific fall risk factors per assessment: Unfamiliar environment, multiple equipment attachments. Assistance:SBA, Supervision:Arms reach Surveillance: Bed locked in low position, call bautista within reach, purposeful hourly rounding, clutter free environment, bed/chair alarm on Patient-specific fall prevention interventions for sensory deficits provided:Yes CPG GOAL OUTCOME EVALUATION: Continue care plan as documented. Goal: Individualization & Mutuality Outcome: Ongoing (Interventions Implemented as Appropriate) 03/15/16 1546 Mutuality/Individual Preferences What Anxieties, Fears or Concerns Do You Have About Your Health or Care? None What Questions Do You Have About Your Health or Care? None What Information Would Help Us Give You More Personalized Care? None Goal: Fall Prevention-Safe Patient Handling Outcome: Ongoing (Interventions Implemented as Appropriate) 03/16/16 1726 03/19/161999 Daily Care Interventions Self-Care Promotion -- independence encouraged Musculoskeletal Interventions Muscle Strengthening activity/mobility promoted -- Garvey Fall Risk History of Falling -- 0 Secondary Diagnosis -- 15 Ambulatory Aids -- 0 Intravenous Therapy/Heparin/Saline Lock -- 20 Gait/Transferring -- 10 Mental Status -- 0 Score -- 45 OTHER Garvey Fall Risk -- High Restraint Interventions Safety Promotion/Fall Prevention -- activity supervised;fall prevention program maintained;nonskid shoes/slippers when out of bed;safety round/check completed;muscle strengthening facilitated Positioning Body Position -- independent Goal: Infection Control Outcome: Ongoing (Interventions Implemented as Appropriate) 03/19/161999 Safety Interventions Isolation Precautions standard precautions maintained Infection Prevention environmental surveillance performed;personal protective equipment utilized;rest/sleep promoted;single patient room provided Coping Strategies Supportive Measures active listening utilized;decision-making supported;goal setting facilitated;positive reinforcement provided;problem solving facilitated;relaxation techniques promoted;self-care encouraged;self- responsibility promoted;verbalization of feelings encouraged Goal: Discharge Needs Assessment Outcome: Ongoing (Interventions Implemented as Appropriate) 03/15/16 1548 03/18/16 0531 03/19/16 1909 Discharge Needs Assessment Concerns To Be Addressed -- no discharge needs identified -- Readmission Within The Last 30 Days -- no previous admission in last 30 days -- Equipment Needed After Discharge -- -- -- Discharge Planning Comments -- -- to son's home with 24 hour family support is the plan. Current Health Anticipated Changes Related to Illness -- none -- Activity/Self Care Review of Systems Equipment Currently Used at Home -- none -- Living Environment Transportation Available family or friend will provide -- -- 03/19/162025 Discharge Needs Assessment Concerns To Be Addressed -- Readmission Within The Last 30 Days -- Equipment Needed After Discharge walker, rolling;shower chair Discharge Planning Comments -- Current Health Anticipated Changes Related to Illness -- Activity/Self Care Review of Systems Equipment Currently Used at Home -- Living Environment Transportation Available -- Goal: Interdisciplinary Rounds/Family Conf Outcome: Ongoing (Interventions Implemented as Appropriate) 03/18/16 0531 Interdisciplinary Rounds/Family Conf Participants nursing * Plan of Care - Xiomy Perez RN - 03/19/2016 7:04 PM EST Problem: Patient Care Overview Goal: Plan of Care Review Outcome: Ongoing (Interventions Implemented as Appropriate) 03/19/16 1857 Plan of Care Review Progress progress toward functional goals as expected Coping/Psychosocial Plan Of Care Reviewed With patient;son OUTCOME EVALUATION NOTE: OUTCOME SUMMARY: [id number] report received from Kalen LOOMIS. All questions answered. Pt has LD drain in place, output monitored q 1-2 hours. Goal of 10-15cc out per hour, she stayed in the range for the most part. She has been neurologically intact. She is appropriate with LD precautions. She has had complaints of pain approximately q 4 hours. She reports pain being well controlled with scheduled tylenol and oxycodone, see MAR for details. Report given to Kalen LOOMIS. PLAN MOVING FORWARD: Explain all nursing interventions. Monitor neuro's and vitals q 2 hours. Keep Pt attached to monitor per MD orders. Strict I&O's. Encourage PO intake of food and fluids. Encourage to turn q 2 hours to promote skin integrity. Assess pain q 2 hours and PRN treating as needed. Encourage ADL's to max functional capacity. INDIVIDUALIZED FALL PREVENTION INTERVENTIONS: Patient-specific fall risk factors per assessment: [current deficits]: Pt has LD drain in place along with other lines attached to her Assistance [level of assistance required for transfers and ambulation]: Stand by assist Supervision [direct monitoring required during toileting and ADLs]: Eyes one Surveillance [continuous indirect monitoring]: Q 1 hour purposeful rounds. Bed alarm on at all times. Room near nurses stations. Close observations. Patient-specific fall prevention interventions for sensory deficits provided, if applicable: [X] Yes, wears glasses CPG GOAL OUTCOME EVALUATION: * Plan of Care - Moody iWnn, PT - 03/19/2016 10:54 AM EST Problem: Patient Care Overview Goal: Plan of Care Review Outcome: Ongoing (Interventions Implemented as Appropriate) 03/19/161908 Coping/Psychosocial Plan Of Care Reviewed With patient Physical Therapy Assessment Pt seen today for PT evaluation (seen in collaboration with OT); Please see PT Evaluation flow sheet data for details. 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 She was pleasant and cooperative today, but did present with some balance and gait deficits, and use of a walker and and assist of at least one is recommended for safety with gait and mobility (at times 2 for lines and drain might be beneficial). She was left in recliner with RN address drain, and all needs in reach. Drain can be clamped for therapy sessions. Pt plans to return to son's home with [address] Will continue PT to safely progress patient's mobility and function, while this patient remains in-house. MOODY WINN, PT Pager [phone] Goal: Discharge Needs Assessment Outcome: Ongoing (Interventions Implemented as Appropriate) 03/19/16 5671 Discharge Needs Assessment Discharge Planning Comments to son's home with 24 hour family support is the plan. Problem: Acute Rehab Services Goal & Intervention Plan Goal: Bed Mobility Goal Stand Alone Therapy Goal Outcome: Ongoing (Interventions Implemented as Appropriate) 03/19/161908 Bed Mobility Goal Bed Mobility Goal, Date Established 03/19/16 Bed Mobility Goal, Additional Goal Supine<->sit with HOB up 30 degrees as ordered independently to allow for a safe d/c Goal: Gait Training Goal Stand Alone Therapy Goal Outcome: Ongoing (Interventions Implemented as Appropriate) 03/19/161908 Gait Training Goal Gait Training Goal, Date Established 03/19/16 Gait Training Goal, Time to Achieve 1 wk Gait Training Goal, Dent Level independent Gait Training Goal, Assist Device walker, rolling Gait Training Goal, Distance to Achieve 200 ft Gait Training Goal, Additional Goal up and down 12 stairs with a rail with supervision to allow fora safe d/c to son's home with support. Goal: Goal Transfer Training Stand Alone Therapy Goal Outcome: Ongoing (Interventions Implemented as Appropriate) 03/19/161908 Goal Transfer Training Transfer Training Goal, Date Established 03/19/16 Transfer Training Goal, Time to Achieve 1 wk Transfer Training Goal, Activity Type [id number] Transfer Train Goal, Dent Level independent Transfer Training Goal, Assist Device walker, rolling * Plan of Care - Sofi Nash, OT - 03/19/2016 10:04 AM EST Problem: Patient Care Overview Goal: Plan of Care Review Outcome: Ongoing (Interventions Implemented as Appropriate) 03/19/16185603/19/161908 Plan of Care Review Progress progress toward functional goals as expected -- Coping/Psychosocial Plan Of Care Reviewed With -- patient Occupational Therapy Evaluation Assessment: Pt has been seen by OT for evaluation, please refer to associated flowsheet data for details. 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 She currently has a LD placed. Pt presents with impaired ability to perform daily activities and functional mobility secondary to activity tolerance, low back pain (at LD site), high level balance, with good insight, safety awareness, and naomi UE strength- she does display L eye ptosis (which she reports she believes was related to the schwannoma). Today she tolerated 180 ft functional mobility with a walker, contact guard (2nd person to manage LD), toileting in bathroom, and standing at the sink for grooming with contact guard. During activity her HR elevated to 115 and recovered quickly in sitting- BP 121/93 after activity. She is very pleasant and motivated to d/c to her son's house with 24 hr supervision. Pt would benefit from ongoing OT interventions to increase independence with self care and progress functional mobility while hospitalized. Precautions: falls, HOB>30, SBP <160, Lumbar Drain precautions-LD may be clamped for 50 mins Pager: [phone] SOFI NASH, OT 03/19/2016 Occupational Therapy Rehabilitation Department Goal: Discharge Needs Assessment Outcome: Ongoing (Interventions Implemented as Appropriate) 03/18/16 0531 03/19/16 19003/19/162025 Discharge Needs Assessment Equipment Needed After Discharge -- -- walker, rolling;shower chair Discharge Planning Comments -- to son's home with 24 hour family support is the plan. -- Activity/Self Care Review of Systems Equipment Currently Used at Home none -- -- Problem: Acute Rehab Services Goal & Intervention Plan Goal: Bathing Goal Stand Alone Therapy Goal Outcome: Ongoing (Interventions Implemented as Appropriate) 03/19/162025 Bathing Goal Bathing Goal, Date Established 03/19/16 Bathing Goal, Time to Achieve 2 wks Bathing Goal, Activity Type Mod I standing in shower Bathing Goal, Outcome goal ongoing Goal: Grooming Goal Stand Alone Therapy Goal Outcome: Ongoing (Interventions Implemented as Appropriate) 03/19/162025 Grooming Goal Grooming Goal, Date Established 03/19/16 Grooming Goal, Time to Achieve 2 wks Grooming Goal, Activity Type Mod I standing in bathroom with stable vitals Grooming Goal, Outcome goal ongoing Goal: Toileting Goal Stand Alone Therapy Goal Outcome: Ongoing (Interventions Implemented as Appropriate) 03/19/162025 Toileting Goal Toileting Goal, Date Established 03/19/16 Toileting Goal, Time to Achieve 2 wks Toileting Goal, Activity Type Mod I with clothing in bathroom Toileting Goal, Outcome goal ongoing Goal: UB Dressing Goal Stand Alone Therapy Goal Outcome: Ongoing (Interventions Implemented as Appropriate) 03/19/162025 UB Dressing Goal UB Dressing Goal, Date Established 03/19/16 UB Dressing Goal, Time to Achieve 2 wks UB Dressing Goal, Activity Type Mod I in standing UB Dressing Goal, Outcome goal ongoing * Consult Note - Ivory Romero, [facility] - 03/19/2016 9:08 AM EST Clinical Pharmacist Note - Vancomycin Latisha Felipe [id number] Latisha Felipe is a 70 y.o. female is being monitored due to antibiotic therapy which includes intravenous vancomycin. Regimen: Vancomycin 1000 mg every 12 hours Indication: empiric coverage of ECONOMIC DEVELOPMENT COORDINATOR infection Targeted Goal Range: 15 - 20 mcg/mL Pharmacokinetic information: Wt Readings from Last 1 Encounters: 03/15/16 63.3 kg (139 lb 8.8 oz) Ht Readings from Last 1 Encounters: 03/15/16 162.6 cm (5' 4) Labs: Vancomycin: 03/16/2016: VANC TROUGH 2.9 mg/L (Ref range: mg/L) 03/19/2016: VANC TROUGH 7.6 mg/L (Ref range: mg/L) Creatinine clearance: 03/04/2016: CREATININE 0.74 mg/dL (Ref range: 0.70 - 1.20 mg/dL) 03/05/2016: CREATININE 0.71 mg/dL (Ref range: 0.70 - 1.20 mg/dL) 03/06/2016: CREATININE 0.68 mg/dL* (Ref range: 0.70 - 1.20 mg/dL) 03/14/2016: CREATININE 0.60 mg/dL* (Ref range: 0.70 - 1.20 mg/dL) 03/15/2016: CREATININE 0.47 mg/dL* (Ref range: 0.70 - 1.20 mg/dL) 03/17/2016: CREATININE 0.53 mg/dL* (Ref range: 0.70 - 1.20 mg/dL); CREATININE 0.59 mg/dL* (Ref range: 0.70 - 1.20 mg/dL) 03/18/2016: CREATININE 0.68 mg/dL* (Ref range: 0.70 - 1.20 mg/dL); CREATININE 0.63 mg/dL* (Ref range: 0.70 - 1.20 mg/dL) 03/19/2016: CREATININE 0.58 mg/dL* (Ref range: 0.70 - 1.20 mg/dL) Recommendations: Dosing recommendations: ?? Based on this information a dose of 1000 mg every 8 hours, to start now should achieve an estimated trough level of 15 - 20 mcg/mL. Monitoring recommendations: ?? A new steady state level should be achieved after 4 half-lives. I suggest rechecking a vancomycin trough level (30 minutes prior to a scheduled dose) at 16:00 (time) on 03/20/16. We will continue to monitor the patient as long as she remains on vancomycin therapy. Please watch SCr, BUN and fluid status closely. Please page the care area pharmacist with any questions you may have. Alternately, during off-hours you may call [phone] to contact a pharmacist. Iovry Romero RPH * Plan of Care - Vikas Hsieh RN - 03/19/2016 2:07 AM EST Problem: Patient Care Overview Goal: Plan of Care Review Outcome: Ongoing (Interventions Implemented as Appropriate) 03/18/16 0531 03/18/16 1945 Plan of Care Review Progress progress toward functional goals as expected -- Coping/Psychosocial Plan Of Care Reviewed With -- patient;daughter OUTCOME EVALUATION NOTE: OUTCOME SUMMARY: Patient remains A&O x 4, with eyes maintaining perrla status. Walking well with one assist, steady gait. Lumbar Drain producing adequate clear yellow cerebrospinal fluid on shift, within order parameters. Patient cooperative with care, anxious. Daughter at bedside, engaged in care and showing concern for mother and medical interventions. Care explained to family and patient. Tolerating IV infusions. PICC line dressing CDI, drawing and flushing well in both lumens. Potassium lab draw indicated 3.7 mmol/L @ 2245. Pain treated with scheduled tylenol, 10 mg PO flexeril, and PRN 10 mg Oxycodone, with supplemental hot packs to lumbar region. Atarax and melatonin PRN given with positive effect. Safety maintained, will continue to monitor. PLAN MOVING FORWARD: Continue to monitor lumbar drain;dressing. Continue to monitor neurological status. Ambulate patient, and continue to address pain and anxiety. Maintain safety, continue to monitor; discharge planning. INDIVIDUALIZED FALL PREVENTION INTERVENTIONS: Patient-specific fall risk factors per assessment: Multiple equipment attachments, lumbar drain, unfamiliar environment. Assistance: 1 assist Supervision: Arms reach Surveillance: Bed locked in low position, call bautista within reach, purposeful hourly rounding, clutter free environment, bed/chair alarm on, family at bedside Patient-specific fall prevention interventions for sensory deficits provided: Yes CPG GOAL OUTCOME EVALUATION: Continue care plan as documented. Goal: Individualization & Mutuality Outcome: Ongoing (Interventions Implemented as Appropriate) 03/15/16 1546 Mutuality/Individual Preferences What Anxieties, Fears or Concerns Do You Have About Your Health or Care? None What Questions Do You Have About Your Health or Care? None What Information Would Help Us Give You More Personalized Care? None Goal: Fall Prevention-Safe Patient Handling Outcome: Ongoing (Interventions Implemented as Appropriate) 03/16/16 1726 03/18/16 1200 03/18/161999 Daily Care Interventions Self-Care Promotion -- independence encouraged -- Musculoskeletal Interventions Muscle Strengthening activity/mobility promoted -- -- Garvey Fall Risk History of Falling -- -- 0 Secondary Diagnosis -- -- 15 Ambulatory Aids -- -- 0 Intravenous Therapy/Heparin/Saline Lock -- -- 20 Gait/Transferring -- -- 10 Mental Status -- -- 0 Score -- -- 45 OTHER Garvey Fall Risk -- -- High Restraint Interventions Safety Promotion/Fall Prevention -- -- activity supervised;fall prevention program maintained;muscle strengthening facilitated;nonskid shoes/slippers when out of bed;safety round/check completed Positioning Body Position -- -- independent Goal: Infection Control Outcome: Ongoing (Interventions Implemented as Appropriate) 03/18/16 1945 03/18/161999 Safety Interventions Isolation Precautions -- standard precautions maintained Infection Prevention -- rest/sleep promoted;single patient room provided Coping Strategies Supportive Measures verbalization of feelings encouraged;active listening utilized;decision-making supported;positive reinforcement provided;problem solving facilitated;relaxation techniques promoted;self-care encouraged;self- reflection promoted -- Goal: Discharge Needs Assessment Outcome: Ongoing (Interventions Implemented as Appropriate) 03/15/16 1548 03/18/16 0531 Discharge Needs Assessment Concerns To Be Addressed -- no discharge needs identified Readmission Within The Last 30 Days -- no previous admission in last 30 days Equipment Needed After Discharge -- none Current Health Anticipated Changes Related to Illness -- none Activity/Self Care Review of Systems Equipment Currently Used at Home -- none Living Environment Transportation Available family or friend will provide -- Goal: Interdisciplinary Rounds/Family Conf Outcome: Ongoing (Interventions Implemented as Appropriate) 03/18/16 0531 Interdisciplinary Rounds/Family Conf Participants nursing * Plan of Care - Kelley Lujan - 03/18/2016 6:21 PM EST Problem: Patient Care Overview Goal: Plan of Care Review Outcome: Ongoing (Interventions Implemented as Appropriate) 03/18/16 0531 03/18/16 0800 Plan of Care Review Progress progress toward functional goals as expected -- Coping/Psychosocial Plan Of Care Reviewed With -- patient OUTCOME EVALUATION NOTE: OUTCOME SUMMARY: Pt. Neurologically intact throughout shift. VSS. C/o link, semi- relieved with current pain regimen. Up in room to bathroom with SBA. PICC placed today. Poor appetite, required lots ofencouragement to ensure adequate PO intake. K+ critical lab value reported, made aware, new medication orders acknowledged. LD re-zeroed @ start of shift with Any Whitehead RN according to new orders. I+O Q2 documented, Elliott KABA made aware of drain output less than order, no new orders @ thistime. IV remains patent. Safety maintained. Will continue to monitor. PLAN MOVING FORWARD: Continue with current level of care. INDIVIDUALIZED FALL PREVENTION INTERVENTIONS: Patient-specific fall risk factors per assessment: Drain Assistance: SBA Supervision: Hands on Surveillance: Bed locked in low position, call bautista within reach, purposeful hourly rounding, clutter free environment, bed/chair alarm on, family at bedside Patient-specific fall prevention interventions for sensory deficits provided: Yes CPG GOAL OUTCOME EVALUATION: Continue care plan as documented. * Plan of Care - Harleen Agrawal RN - 03/18/2016 9:16 AM EST Problem: Health Knowledge, Opportunity to Enhance (Adult,NICU,,Obstetrics,Pediatric) Goal: Knowledgeable about Health Subject/Topic Patient will demonstrate the desired outcomes by discharge/transition of care. Peripherally Inserted Central Catheter (PICC) Teaching Sheet Peripherally inserted central catheters (cxdd-[id number]-dwoe) (PICC) are used when you need IV (intravenous) medicines and fluids. A catheter is a small flexible plastic tube. The catheter is put in througha vein under your skin. A vein is a tube inside your body that carries blood from the body to the heart. The catheter is usually put into a vein on the inside of your upper arm. Then it is threaded up this vein and ends in the blood vessel near your heart. The PICC catheter may be used for taking blood for laboratory tests. You may also get IV fluids andmedicines quickly and easily. Having the catheter may keep your arm from being stuck many times with a needle. The catheter will have 1-3 small tails (tubes) coming from your arm where the catheter was put in. Why do I need a PICC line or midline catheter? PICC lines are used for terminal block assembler treatments. PICC lines may be used for up to a year. They areoften put in to give you IV medicines at home. You may need a PICC catheter because caregivers cannot use smaller veins in your body. Smaller veins may be damaged, or they may have poor blood flow. ??? Catheters are also used in case of emergency when you would need medicines or fluids very quickly. ??? The following are medicines and treatments you may get when you have a PICC line. ? Antibiotics. These are medicines to prevent infection. ? Frequent blood sample collection. ? IV medicines that would make your smaller veins sore or damaged. ? Receiving IV fluids for a long period of time. ? Pain medicine. ? Total Parenteral Nutrition: This is also called TPN. TPN is a special liquid food that goes directly into your veins. ? Blood ? Chemotherapy (Medicine for cancer) What are the benefits of having a PICC line put in? Having a PICC line may keep your arm from being stuck many times with a needle to draw blood orstart an IV (intravenous catheter) . ??? Through a PICC catheter, you may have blood taken for tests. You may also get IV fluids and medicines quickly and easily. ??? Small veins can be damaged or irritated by certain drugs or nutritional solutions. A PICC line helps to decrease vein irritation from antibiotics, IV pain drugs, or IV cancer drugs. ??? A PICC line can be left in place when you go home. If you go home with a PICC line in place, home care can be set up via the nurse Manager Infusion to help you. What are possible complications of having a PICC line put in? Some possible complications are: ??? bruising, swelling, or infection in the arm with the PICC line ??? mal-positioned catheter (catheter tip in wrong place) ??? occlusion (blocked catheter) ??? mechanical phlebitis (vein irritation) and thrombosis (clot) Your doctor is the person you should talk to if you have questions about what would happen if you do not choose to have a PICC line put in. Your doctor can talk to you about other choices you may have. What should I expect when it is put in? A written consent that gives your ok to have it put in needs to be signed after you understand thatyou are going to have a PICC put in, and all your questions about the procedure have been answered to your satisfaction. This is a safety feature that the hospital practices before doing procedures. An experienced nurse who has been through special training and education will be putting this catheter in. The procedure is done in a specially equipped room in Interventional Radiology on the third floor. The PICC nurse will first talk to you about any questions that you may have. The PICC nurse will explain to you what is going to be done before starting. Once you arrive in the procedure room in Interventional Radiology, the PICC nurse will then set up for the procedure. She will unwrap the sterile kit and open the needed supplies. A gown and mask andgloves will be worn while putting it in. An ultrasound machine will be used to help guide the catheter in the right place. This machine uses a handle with sound waves to find the vein. The area on your arm where the catheter will be put in is then numbed with a medicine put under your skin with a tiny needle. The nurse will then put in the catheter using fluoroscopy (a type of x-ray) as a guide. Once the catheter is in your vein, it will be threaded up your arm to the area beforeyour heart. While it is being threaded, you may be asked to turn your head. When the catheter is in, the nurse will place a small dressing on the site along with a little simpson which will help keep the catheter in place. After the procedure is done, a radiologist (doctor in x-ray department) will look at your x-ray to make sure that the end of the catheter is in proper position to give your fluids and/or medications. What should I expect in the care of my PICC? A dressing that is specially made to prevent infections will be put on. After this, the dressing will only be changed once a week unless it needs it sooner. If you go home with the catheter in, you may take a shower as long as you keep the site dry. You can do this by wearing a specially fitted PICC protector that will be provided to you before dischargefrom the hospital. The dressing at the site must be kept clean and dry. It is important that you watch for signs of infection at the site. Your healthcare provider should be notified if these occur: ??? Redness ??? Swelling ??? Pus ??? Pain at the site Other reasons to notify your healthcare provider are: ??? Catheter becomes partially or totally removed ??? Unable to infuse medication/fluid ??? Unable to draw back blood from the catheter. This may be an early sign that a clot is forming on the end of the catheter. If this occurs, a medicine called Cathflo may be used to dissolve this clot. Ask the PICC nurse or your doctor, any questions you may have so you feel secure in consenting to having a PICC line. References: Vascular Access Device Selection, Insertion, and Management, En[employer]ed Access Systems 01/05. A Review of the Efficacy, Safety, Use, and Administration of Cathflo, [employer] 2006Peripherally Inserted Central Catheter (PICC) Teaching Sheet Peripherally inserted central catheters (kjvx-yu-[id number]) (PICC) are used when you need IV (intravenous) medicines and fluids. A catheter is a small flexible plastic tube. The catheter is put in througha vein under your skin. A vein is a tube inside your body that carries blood from the body to the heart. The catheter is usually put into a vein on the inside of your upper arm. Then it is threaded up this vein and ends in the blood vessel near your heart. The PICC catheter may be used for taking blood for laboratory tests. You may also get IV fluids andmedicines quickly and easily. Having the catheter may keep your arm from being stuck many times with a needle. The catheter will have 1-3 small tails (tubes) coming from your arm where the catheter was put in. Why do I need a PICC line or midline catheter? PICC lines are used for usp treatments. PICC lines may be used for up to a year. They areoften put in to give you IV medicines at home. You may need a PICC catheter because caregivers cannot use smaller veins in your body. Smaller veins may be damaged, or they may have poor blood flow. ??? Catheters are also used in case of emergency when you would need medicines or fluids very quickly. ??? The following are medicines and treatments you may get when you have a PICC line. ? Antibiotics. These are medicines to prevent infection. ? Frequent blood sample collection. ? IV medicines that would make your smaller veins sore or damaged. ? Receiving IV fluids for a long period of time. ? Pain medicine. ? Total Parenteral Nutrition: This is also called TPN. TPN is a special liquid food that goes directly into your veins. ? Blood ? Chemotherapy (Medicine for cancer) What are the benefits of having a PICC line put in? Having a PICC line may keep your arm from being stuck many times with a needle to draw blood orstart an IV (intravenous catheter) . ??? Through a PICC catheter, you may have blood taken for tests. You may also get IV fluids and medicines quickly and easily. ??? Small veins can be damaged or irritated by certain drugs or nutritional solutions. A PICC line helps to decrease vein irritation from antibiotics, IV pain drugs, or IV cancer drugs. ??? A PICC line can be left in place when you go home. If you go home with a PICC line in place, home care can be set up via the nurse Manager Infusion to help you. What are possible complications of having a PICC line put in? Some possible complications are: ??? bruising, swelling, or infection in the arm with the PICC line ??? mal-positioned catheter (catheter tip in wrong place) ??? occlusion (blocked catheter) ??? mechanical phlebitis (vein irritation) and thrombosis (clot) Your doctor is the person you should talk to if you have questions about what would happen if you do not choose to have a PICC line put in. Your doctor can talk to you about other choices you may have. What should I expect when it is put in? A written consent that gives your ok to have it put in needs to be signed after you understand thatyou are going to have a PICC put in, and all your questions about the procedure have been answered to your satisfaction. This is a safety feature that the hospital practices before doing procedures. An experienced nurse who has been through special training and education will be putting this catheter in. The procedure is done in a specially equipped room in Interventional Radiology on the third floor. The PICC nurse will first talk to you about any questions that you may have. The PICC nurse will explain to you what is going to be done before starting. Once you arrive in the procedure room in Interventional Radiology, the PICC nurse will then set up for the procedure. She will unwrap the sterile kit and open the needed supplies. A gown and mask andgloves will be worn while putting it in. An ultrasound machine will be used to help guide the catheter in the right place. This machine uses a handle with sound waves to find the vein. The area on your arm where the catheter will be put in is then numbed with a medicine put under your skin with a tiny needle. The nurse will then put in the catheter using fluoroscopy (a type of x-ray) as a guide. Once the catheter is in your vein, it will be threaded up your arm to the area beforeyour heart. While it is being threaded, you may be asked to turn your head. When the catheter is in, the nurse will place a small dressing on the site along with a little simpson which will help keep the catheter in place. After the procedure is done, a radiologist (doctor in x-ray department) will look at your x-ray to make sure that the end of the catheter is in proper position to give your fluids and/or medications. What should I expect in the care of my PICC? A dressing that is specially made to prevent infections will be put on. After this, the dressing will only be changed once a week unless it needs it sooner. If you go home with the catheter in, you may take a shower as long as you keep the site dry. You can do this by wearing a specially fitted PICC protector that will be provided to you before dischargefrom the hospital. The dressing at the site must be kept clean and dry. It is important that you watch for signs of infection at the site. Your healthcare provider should be notified if these occur: ??? Redness ??? Swelling ??? Pus ??? Pain at the site Other reasons to notify your healthcare provider are: ??? Catheter becomes partially or totally removed ??? Unable to infuse medication/fluid ??? Unable to draw back blood from the catheter. This may be an early sign that a clot is forming on the end of the catheter. If this occurs, a medicine called Cathflo may be used to dissolve this clot. Ask the PICC nurse or your doctor, any questions you may have so you feel secure in consenting to having a PICC line. References: Vascular Access Device Selection, Insertion, and Management, Enlighted Access Systems 01/05. A Review of the Efficacy, Safety, Use, and Administration of Cathflo, [employer] 2005 * Consult Note - Sita Teague RN - 03/18/2016 7:58 AM EST VAS called for painful IV. Pt with 4 IV's in 3 days. On 3 antibiotics and intermittent hypertonic saline. Based on this pt should have something other then PIV's. Spoke with SESAR Villalba who is in agreement, he will place an order for a PICC. Able to get PICC this morning between 830-0900. RN will hold vanco until after PICC placement. Pt aware of plan and in agreement. * Plan of Care - Aicha Smallwood RN - 03/18/2016 5:33 AM EST Problem: Patient Care Overview Goal: Plan of Care Review Outcome: Ongoing (Interventions Implemented as Appropriate) 03/18/16 05 Plan of Care Review Progress progress toward functional goals as expected Coping/Psychosocial Plan Of Care Reviewed With patient . Goal: Individualization & Mutuality Outcome: Ongoing (Interventions Implemented as Appropriate) 03/15/16 1546 Mutuality/Individual Preferences What Anxieties, Fears or Concerns Do You Have About Your Health or Care? None What Questions Do You Have About Your Health or Care? None What Information Would Help Us Give You More Personalized Care? None Goal: Fall Prevention-Safe Patient Handling Outcome: Ongoing (Interventions Implemented as Appropriate) 03/16/16 1726 03/17/16199903/18/16 0410 Daily Care Interventions Self-Care Promotion -- independence encouraged -- Musculoskeletal Interventions Muscle Strengthening activity/mobility promoted -- -- Garvey Fall Risk History of Falling -- 0 -- Secondary Diagnosis -- 15 -- Ambulatory Aids -- 0 -- Intravenous Therapy/Heparin/Saline Lock -- 20 -- Gait/Transferring -- 10 -- Mental Status -- 0 -- Score -- 45 -- OTHER Garvey Fall Risk -- High -- Restraint Interventions Safety Promotion/Fall Prevention -- activity supervised;fall prevention program maintained;nonskid shoes/slippers when out of bed;safety round/check completed;toileting scheduled -- Positioning Body Position -- -- independent Goal: Infection Control Outcome: Ongoing (Interventions Implemented as Appropriate) 03/17/161999 Safety Interventions Isolation Precautions standard precautions maintained Infection Prevention rest/sleep promoted Coping Strategies Supportive Measures active listening utilized;positive reinforcement provided;relaxation techniquespromoted;verbalization of feelings encouraged Goal: Discharge Needs Assessment Outcome: Ongoing (Interventions Implemented as Appropriate) 03/18/16530 Discharge Needs Assessment Concerns To Be Addressed no discharge needs identified Readmission Within The Last 30 Days no previous admission in last 30 days Equipment Needed After Discharge none Current Health Anticipated Changes Related to Illness none Activity/Self Care Review of Systems Equipment Currently Used at Home none Goal: Interdisciplinary Rounds/Family Conf Outcome: Ongoing (Interventions Implemented as Appropriate) 03/18/16 05 Interdisciplinary Rounds/Family Conf Participants nursing Problem: Skin Integrity Impairment, Risk/Actual (Adult) Goal: Skin Integrity/Wound Healing Patient will demonstrate the desired outcomes by discharge/transition of care. Outcome: Ongoing (Interventions Implemented as Appropriate) 03/18/16530 Skin Integrity Impairment, Risk/Actual (Adult) Skin Integrity/Wound Healing making progress toward outcome Problem: Infection, Risk/Actual (Adult) Goal: Infection Prevention/Resolution Patient will demonstrate the desired outcomes by discharge/transition of care. Outcome: Ongoing (Interventions Implemented as Appropriate) 03/18/16 0531 Infection, Risk/Actual (Adult) Infection Prevention/Resolution making progress toward outcome Comments: OUTCOME EVALUATION NOTE: OUTCOME SUMMARY: Pt is neurologically intact, pleasant. Ambulating with standby-assist. Lumbar drain intact, dsg with old drainage noted by previous RN. Increased drainage at times, clamped x2 overnight for output >20 in 1 hr. MD made aware, no new orders. Tolerating po meds and diet. Voiding in BR without issue. Pain managed with oxycodone 5mg po x2 and dilaudid 0.2mg x1, also standing tylenol. Remains febrile, BP elevated at times labetalol x2 with good effect. Crani incision healing well, no issues. IV sites intact. Call bautista within reach, will continue to monitor closely. PLAN MOVING FORWARD: Monitor neuro status/lumbar drain, encourage ambulation, de-escalate care whenmedically able INDIVIDUALIZED FALL PREVENTION INTERVENTIONS: Call bautista within reach, frequent nursing rounds, painmanagement, ambulation Patient-specific fall risk factors per assessment: drains/line, pain medication Assistance: SBA Supervision: Eyes on Surveillance: Bed locked in low position, call bautista within reach, purposeful hourly rounding, room near nurses station Patient-specific fall prevention interventions for sensory deficits provided: N/A CPG GOAL OUTCOME EVALUATION: improving Continue care plan as documented. * Plan of Care - Jose Woodard RN - 03/17/2016 7:52 PM EST Problem: Patient Care Overview Goal: Plan of Care Review Outcome: Ongoing (Interventions Implemented as Appropriate) 03/16/16 1726 03/17/16 1041 Plan of Care Review Progress progress toward functional goals as expected -- Coping/Psychosocial Plan Of Care Reviewed With -- patient;daughter OUTCOME EVALUATION NOTE: OUTCOME SUMMARY: Pt remained neuorologically intact, on bedrest drain continued to flow with in goal. Pt complained of slight pain on her lower back, around drain site, denies palpable pain. Daughter at bedside for all of shift. Pt voided in bathroom after being clamped. PLAN MOVING FORWARD: Continue to monitor for status change, also continue to monitor for changes in drain output INDIVIDUALIZED FALL PREVENTION INTERVENTIONS: Patient-specific fall risk factors per assessment: Lightheaded occasioanlly upon standing Assistance: Independent, SBA, 1 assist, Supervision: Arms reach, Surveillance: Bed locked in low position, call bautista within reach, purposeful hourly rounding, clutter free environment, bed/chair alarm on, family at bedside Patient-specific fall prevention interventions for sensory deficits provided:Yes CPG GOAL OUTCOME EVALUATION: Continue care plan as documented. Goal: Individualization & Mutuality Outcome: Ongoing (Interventions Implemented as Appropriate) 03/15/16 1546 Mutuality/Individual Preferences What Anxieties, Fears or Concerns Do You Have About Your Health or Care? None What Questions Do You Have About Your Health or Care? None What Information Would Help Us Give You More Personalized Care? None Goal: Fall Prevention-Safe Patient Handling Outcome: Ongoing (Interventions Implemented as Appropriate) 03/16/16 1025 03/16/16 1726 03/17/16 1041 Daily Care Interventions Self-Care Promotion independence encouraged;BADL personal objects within reach;BADL personal routines maintained -- -- Musculoskeletal Interventions Muscle Strengthening -- activity/mobility promoted -- Garvey Fall Risk History of Falling -- -- 0 Secondary Diagnosis -- -- 15 Ambulatory Aids -- -- 0 Intravenous Therapy/Heparin/Saline Lock -- -- 20 Gait/Transferring -- -- 10 Mental Status -- -- 15 Score -- -- 60 OTHER Garvey Fall Risk -- -- High Restraint Interventions Safety Promotion/Fall Prevention -- -- activity supervised Positioning Body Position -- -- -- 03/17/16 1800 Daily Care Interventions Self-Care Promotion -- Musculoskeletal Interventions Muscle Strengthening -- Garvey Fall Risk History of Falling -- Secondary Diagnosis -- Ambulatory Aids -- Intravenous Therapy/Heparin/Saline Lock -- Gait/Transferring -- Mental Status -- Score -- OTHER Garvey Fall Risk -- Restraint Interventions Safety Promotion/Fall Prevention -- Positioning Body Position independent Goal: Infection Control Outcome: Ongoing (Interventions Implemented as Appropriate) 03/17/16 1041 Safety Interventions Isolation Precautions standard precautions maintained Infection Prevention rest/sleep promoted Coping Strategies Supportive Measures self-care encouraged Goal: Discharge Needs Assessment Outcome: Ongoing (Interventions Implemented as Appropriate) 03/15/16 1548 Living Environment Transportation Available family or friend will provide Goal: Interdisciplinary Rounds/Family Conf Outcome: Ongoing (Interventions Implemented as Appropriate) 03/15/16 1858 Interdisciplinary Rounds/Family Conf Participants nursing;advanced practice nurse Problem: Skin Integrity Impairment, Risk/Actual (Adult) Goal: Skin Integrity/Wound Healing Patient will demonstrate the desired outcomes by discharge/transition of care. Outcome: Ongoing (Interventions Implemented as Appropriate) 03/16/16 1726 Skin Integrity Impairment, Risk/Actual (Adult) Skin Integrity/Wound Healing making progress toward outcome Problem: Infection, Risk/Actual (Adult) Goal: Infection Prevention/Resolution Patient will demonstrate the desired outcomes by discharge/transition of care. Outcome: Ongoing (Interventions Implemented as Appropriate) 03/16/16 1726 Infection, Risk/Actual (Adult) Infection Prevention/Resolution making progress toward outcome * Plan of Care - Chana Lopez RN - 03/17/2016 7:56 AM EST Problem: Patient Care Overview Goal: Plan of Care Review Outcome: Ongoing (Interventions Implemented as Appropriate) OUTCOME EVALUATION NOTE: OUTCOME SUMMARY: Neuro intact. Lumbar drain managed per order settings; output measured, yellow/orange color; drainage marked on dressing. Labetalol administered to keep SBP < 160. C/o back pain and spasms; medications administered PRN. T max of 39.3C; MD notified with no interventions. PIV on r forearm leaking; VAS paged to assess; removed IV. Lytes obtained Q6 hr; critical K level reported to MD. Ambulating with SBA to bathroom. CSF sample and blood cultures sent per MD orders. PLAN MOVING FORWARD: Explain all nursing interventions. Monitor neuro's and vitals q 2 hours. Keep Pt attached to monitor per MD orders. Strict I&O's. Encourage PO intake of food and fluids. Encourage to turn q 2 hours to promote skin integrity. Assess pain q 2 hours and PRN treating as needed.Encourage ADL's to max functional capacity. INDIVIDUALIZED FALL PREVENTION INTERVENTIONS: Patient-specific fall risk factors per assessment: Lumbar drain. Crani site. CSF leak. Assistance: 2 assist Supervision: Eyes on Surveillance: Bed locked in low position, call bautista within reach, purposeful hourly rounding, bed/chair alarm on, room near nurses station Patient-specific fall prevention interventions for sensory deficits provided: N/A CPG GOAL OUTCOME EVALUATION: Continue care plan as documented. * Plan of Care - Kirsten Schilling RN - 03/16/2016 5:31 PM EST Problem: Patient Care Overview Goal: Plan of Care Review OUTCOME EVALUATION NOTE: OUTCOME SUMMARY: Neuro status unchanged. Lumbar drain open per provider order. See doc flowsheets. Up to bathroom with stand by assist. Safety/comfort maintained. PLAN MOVING FORWARD: Continue current level of care. INDIVIDUALIZED FALL PREVENTION INTERVENTIONS: nonslip socks when OOB, call bautista within reach, room near unit station, bed controls locked Patient-specific fall risk factors per assessment: [current deficits]: Lumbar drain Assistance [level of assistance required for transfers and ambulation]: Stand by Supervision [direct monitoring required during toileting and ADLs]: Arms reach Surveillance [continuous indirect monitoring]: Hourly rounding, bed alarm, family at bedside Patient-specific fall prevention interventions for sensory deficits provided, if applicable: yes CPG GOAL OUTCOME EVALUATION: * Plan of Care - Marcia Mccarty RN - 03/16/2016 7:42 AM EST Problem: Patient Care Overview Goal: Plan of Care Review Outcome: Ongoing (Interventions Implemented as Appropriate) OUTCOME EVALUATION NOTE: OUTCOME SUMMARY: Alert and oriented x 4, Strengths 5/5 all extremities. R droop at baseline. VSS. Lumbar dressing intact with drainage noted and marked, Team aware. Pain 7/10, medicated and pain reassessed appropriately. Voiding clear yellow urine, no BM noted. Pt restless throughout the night, Magalis, MINERAL ENGINEER to bedside to assess, potassium and mag replaced and ativan and flexeril ordered and given. PLAN MOVING FORWARD: Continue current level of care INDIVIDUALIZED FALL PREVENTION INTERVENTIONS: Patient-specific fall risk factors per assessment: Lumbar drain Assistance: 2 assist, Bedrest Supervision: Hands on Surveillance: Bed locked in low position, call buatista within reach, purposeful hourly rounding, clutter free environment, bed/chair alarm on, family at bedside Patient-specific fall prevention interventions for sensory deficits provided: N/A CPG GOAL OUTCOME EVALUATION: * Plan of Care - Ladonna Whiting RN - 03/15/2016 7:10 PM EST Problem: Patient Care Overview Goal: Plan of Care Review Outcome: Ongoing (Interventions Implemented as Appropriate) 03/15/16 1233 03/15/16 1858 Plan of Care Review Progress -- no change Coping/Psychosocial Plan Of Care Reviewed With patient;family -- OUTCOME EVALUATION NOTE: OUTCOME SUMMARY: Patient transferred from ICU this this afternoon. Patient AOx4, following commands, 5/5 strength throughout. Pupils equal and reactive. Lumbar drain patent. 3% saline infusing. Lumbar insertion site with drainage, PURIFICATION SUPERVISOR Hannah made aware- states ok as it remains occlusive. Patient reporting back pain, treated with PRN oxycodone and hydromorphone, and scheduled tylenol. Duran removed before transfer, patient voiding adequate amounts of clear urine. Ambulated to bathroom with nursing assistance. Drain and drain orders checked with night RN. PLAN MOVING FORWARD: Continue to monitor lumbar drain, provide IV antibiotics, monitor serum sodium levels. INDIVIDUALIZED FALL PREVENTION INTERVENTIONS: Patient-specific fall risk factors per assessment: Patient at risk for falls d/t unfamiliar environment, multiple attached medical devices, ad use of opioid pain medications. Assistance:2 assist Supervision: Hands on Surveillance: Bed locked in low position, call bautista within reach, purposeful hourly rounding, clutter free environment, bed/chair alarm on Patient-specific fall prevention interventions for sensory deficits provided: N/A CPG GOAL OUTCOME EVALUATION: Continue care plan as documented. Goal: Individualization & Mutuality Outcome: Ongoing (Interventions Implemented as Appropriate) 03/15/16 1546 Mutuality/Individual Preferences What Anxieties, Fears or Concerns Do You Have About Your Health or Care? None What Questions Do You Have About Your Health or Care? None What Information Would Help Us Give You More Personalized Care? None Goal: Fall Prevention-Safe Patient Handling Outcome: Ongoing (Interventions Implemented as Appropriate) 03/15/16 0800 03/15/16 1412 03/15/16 1858 Daily Care Interventions Self-Care Promotion -- -- BADL personal objects within reach;BADL personal routines maintained;mealsetup provided Garvey Fall Risk History of Falling 0 -- -- Secondary Diagnosis 15 -- -- Ambulatory Aids 0 -- -- Intravenous Therapy/Heparin/Saline Lock 20 -- -- Gait/Transferring 0 -- -- Mental Status 0 -- -- Score 35 -- -- OTHER Garvey Fall Risk Med -- -- Restraint Interventions Safety Promotion/Fall Prevention safety round/check completed;fall prevention program maintained ---- Positioning Body Position -- supine -- Goal: Infection Control Outcome: Ongoing (Interventions Implemented as Appropriate) 03/15/16 0800 Safety Interventions Isolation Precautions standard precautions maintained Infection Prevention environmental surveillance performed;personal protective equipment utilized;rest/sleep promoted;single patient room provided;visitors restricted/screened Coping Strategies Supportive Measures active listening utilized Goal: Discharge Needs Assessment Outcome: Ongoing (Interventions Implemented as Appropriate) 03/15/16 1548 Living Environment Transportation Available family or friend will provide Goal: Interdisciplinary Rounds/Family Conf Outcome: Ongoing (Interventions Implemented as Appropriate) 03/15/16 1858 Interdisciplinary Rounds/Family Conf Participants nursing;advanced practice nurse Problem: Skin Integrity Impairment, Risk/Actual (Adult) Goal: Identify Related Risk Factors and Signs and Symptoms Related risk factors and signs and symptoms are identified upon initiation of Human Response Clinical Practice Guideline (CPG) Outcome: Ongoing (Interventions Implemented as Appropriate) 03/15/16 1858 Skin Integrity Impairment, Risk/Actual Skin Integrity Impairment, Risk/Actual: Related Risk Factors surgery/procedure Goal: Skin Integrity/Wound Healing Patient will demonstrate the desired outcomes by discharge/transition of care. Outcome: Ongoing (Interventions Implemented as Appropriate) 03/15/161857 Skin Integrity Impairment, Risk/Actual (Adult) Skin Integrity/Wound Healing making progress toward outcome Problem: Infection, Risk/Actual (Adult) Goal: Identify Related Risk Factors and Signs and Symptoms Related risk factors and signs and symptoms are identified upon initiation of Human Response Clinical Practice Guideline (CPG) Outcome: Ongoing (Interventions Implemented as Appropriate) 03/15/161857 Infection, Risk/Actual Infection, Risk/Actual: Related Risk Factors surgery/procedure;skin integrity impairment Signs and Symptoms (Infection, Risk/Actual) feeding/eating intolerance;lab value changes;pain Goal: Infection Prevention/Resolution Patient will demonstrate the desired outcomes by discharge/transition of care. Outcome: Ongoing (Interventions Implemented as Appropriate) 03/15/16 1858 Infection, Risk/Actual (Adult) Infection Prevention/Resolution making progress toward outcome * Initial Assessments - Roopa Paz RN - 03/15/2016 3:45 PM EST Office of Care Management Initial Assessment ROOPA PAZ RN reviewed record and discussed patient with Care Team. Source of Information: Chart review; I deferred a personal visit while [place] [facility] [place] No family available at this time. Reason for Hospitalization: Presented [facility] CC: Increased headache, neck stiffness, febrile, elevatedWBC s/p resection of R acoustic neuroma. Past Medical History Diagnosis Date ??? CLL (chronic lymphocytic leukemia) ??? CPA (cerebellopontine angle) tumor Past Surgical History Procedure Laterality Date ??? Pro endoscopic us exam, esoph N/A 02/09/2016 UPPER EUS- ENDOSCOPIC ULTRASOUND performed by Rigoberto Angel MD at [facility] ENDOSCOPY ??? Pro tissue grafts, other (e.g. autologous fat graft) N/A 03/03/2016 TISSUE GRAFT, PARATENON, FAT, DERMIS (OTHER) performed by Iván Chaves MD at [facility] MAIN OR ??? Pro excis infratent cp angle tumor Right 03/03/2016 @CRANIECTOMY, EXC. CEREBELLOPONTINE ANGLE TUMOR performed by Iván Chaves MD at [facility] OR ??? Pro microsurg techniques, req oper microscope N/A 03/03/2016 MICROSCOPE USE performed by Iván Chaves MD at [facility] MAIN OR ??? Pro excis transtemp cp angle tumor 03/03/2016 @CRANIECTOMY,TRANSTEMPORAL- ACOUSTIC NEUROMA performed by Norman Aguilera MD at [facility] MAIN OR Hospitalizations Within the Past 30 Days: Discharged from [facility] 03/03/16 after the following procedure: (LRB): TISSUE GRAFT, PARATENON, FAT, DERMIS (OTHER) (N/A) @CRANIECTOMY, EXC. CEREBELLOPONTINE ANGLE TUMOR (Right) MICROSCOPE USE (N/A) @CRANIECTOMY,TRANSTEMPORAL- ACOUSTIC NEUROMA Anticipated Length Of Stay: Not known at this time. IPI order cosigned by Dr. Shiva Sewell on 03/15/16 @ 0030. Current Decision-Making Capacity: Per Dr. Quintanilla progress note today, pt clinically improved, AA + Ox3, spontaneous speech fluent and appropriate. Advance Care Planning: Not on file in eDH. Current Coping/Education/Information Needs: Unable to assess at this time. Current Functional Ability: Lumbar drain in place. Neuro checks Q 2 hours. Pt on room air. Functional Status Prior to Admission: Per the pt's ADT information, pt employed multimedia editor for [employer]; unable to confirm this presently. Home Environment: Lives in [place], [place]. Social & Family Supports/Community Resources: Emergency Contact 1 Emergency Contact 2 ? Cindy Felipe (Child) [phone] (H) Mitchashley Matteo (Dep Child) [address] [facility] [phone] (M) Behavioral Health History: None per H&P. Substance Use/Abuse: Former cigarette smoker, EtOH - nightly wine. Other Pertinent/Service Specific Information: None Health/Prescription Coverage: Primary Insurance: MEDICARE PART A ONLY Secondary Insurance: [employer] HMO POS Prescription Coverage: Unconfirmed Preferred Pharmacy: [facility] [address] [place] [address] CANAL AT [facility] of [facility] ? [address] [facility] [phone] ? Not a 24 hour pharmacy; exact hours not known Other: None known Primary Care Provider: Elizabeth Armenta MD [phone] Patient/Caregiver Goals of Treatment: Will determine once pt is feeling well enough to visit with aCase Ordnance Keeper. Potential Needs for Transition of Care: Rehab/SNF: TBD Home Health: TBD DME: TBD Dialysis: N/A Community Resources: TBD Transportation: TBD Other: None Anticipated Barriers to Discharge/Special Considerations: Will continue to monitor for barriers during this hospitalization. Plan: A member of the Care Management team will continue to monitor progress, follow for continuity of care and assist with transition of care planning. ROOPA PAZ RN Pager: [phone] for today * Consult Note - Yaya Ware MD - 03/14/2016 10:51 PM EST Neurosurgery Consultation Emergency Department Date: 03/14/2016 Patient Name: Latisha Felipe : 1945 CC: Increased headache, neck stiffness, febrile, elevated WBC s/p resection of R acoustic neuroma HPI: Asked by Shiva Sewell MD to see Latisha Felipe, a 70 y.o. female with PMH significant for a right sided acoustic neuroma (s/p resection 03/03) regarding evaluation and management of possible post-op infection and CSF leak. The patient was recovering at home from her surgery when she gradually developed increasing headaches, neck stiffness and fevers. The patient also called the clinic a few days ago and reported that she experienced a couple of clear drops of fluid from her nares when she bent forward. The patient was taken to an OSH where she was found to have an elevated WBC and a CT showing pneumocephalus. She was then transferred to [facility] for further management. PMH: R Acoustic neuroma HTN Depression PSH: Past Surgical History Procedure Laterality Date ??? Pro endoscopic us exam, esoph N/A 02/09/2016 UPPER EUS- ENDOSCOPIC ULTRASOUND performed by Rigoberto Angel MD at [facility] ENDOSCOPY ??? Pro tissue grafts, other (e.g. autologous fat graft) N/A 03/03/2016 TISSUE GRAFT, PARATENON, FAT, DERMIS (OTHER) performed by Iván Chaves MD at [facility] MAIN OR ??? Pro excis infratent cp angle tumor Right 03/03/2016 @CRANIECTOMY, EXC. CEREBELLOPONTINE ANGLE TUMOR performed by Iván Chaves MD at [facility] MAIN OR ??? Pro microsurg techniques, req oper microscope N/A 03/03/2016 MICROSCOPE USE performed by Iván Chaves MD at [facility] MAIN OR ??? Pro excis transtemp cp angle tumor 03/03/2016 @CRANIECTOMY,TRANSTEMPORAL- ACOUSTIC NEUROMA performed by Norman Aguilera MD at [facility] MAIN OR Medications: No current facility-administered medications on file prior to encounter. Current Outpatient Prescriptions on File Prior to Encounter Medication Sig Dispense Refill ??? acetaminophen (TYLENOL) 325 mg Tablet Take 2 tablets by mouth every 4 hours. 30 tablet 1 ??? dexamethasone (DECADRON) 1 mg Tablet Take 4 tablets by mouth See Admin Instructions. Taper as follows: 4 tab BID x 3d, 2 tab BID x 3d, 1 tab BID x 3d, 1 tab daily x 3d, Stop 45 tablet 0 ??? famotidine (PEPCID) 20 mg Tablet Take 1 tablet by mouth every 12 hours. 30 tablet 12 ??? oxyCODONE (ROXICODONE) 5 mg Tablet Take 1 tablet by mouth every 4 hours as needed for Pain. 30 tablet 0 ??? polyethylene glycol (MIRALAX) 17 gram Powder in Packet Take 17 g by mouth daily as needed. 14 each 0 ??? albuterol (PROVENTIL HFA;VENTOLIN HFA;PROAIR) 90 mcg/actuation HFA Aerosol Inhaler Inhale 2 puffs into the lungs every 4 hours as needed for Wheezing. Use with spacer ??? FLUoxetine (PROZAC) 20 mg Tablet Take 40 mg by mouth daily. ??? losartan-hydrochlorothiazide (HYZAAR) 100-25 mg Tablet Take 1 tablet by mouth daily. ??? amLODIPine (NORVASC) 10 mg Tablet Take 10 mg by mouth daily. ??? LORazepam (ATIVAN) 0.5 mg Tablet Take 0.5 mg by mouth every 6 hours as needed for Anxiety. ??? KRILL OIL ORAL Take by mouth daily. ??? FOLIC ACID/MULTIVIT-MIN/LUTEIN (CENTRUM SILVER ORAL) Take by mouth daily. ??? CALCIUM CARBONATE/VITAMIN D3 (CALTRATE 600 + D ORAL) Take by mouth daily. Allergies: Allergies Allergen Reactions ??? Sulfa (Sulfonamide Antibiotics) Rash HIGH FEVER Family Hx: No family history on file. Social Hx: Social History Social History ??? Marital status: Spouse name: N/A ??? Number of children: N/A ??? Years of education: N/A Occupational History ??? Not on file. Social History Main Topics ??? Smoking status: Former Smoker Packs/day: 0.50 Years: 15.00 Types: Cigarettes ??? Smokeless tobacco: Never Used Comment: quit ??? Alcohol use Yes Comment: wine nightly ??? Drug use: No ??? Sexual activity: Not on file Other Topics Concern ??? Not on file Social History Narrative ROS: Constitutional: + fevers, diaphoresis HEENT: + headaches and neck aches Cardiovascular: No chest pain, palpitations, orthopnea. Pulmonary: No shortness of breath. No cough, no wheezing. GI: No abdominal pain, vomiting, significant change in bowel habits. : No dysuria, urinary retention, urinary incontinence. Musculoskeletal: No joint pain. Endocrine: No heat/cold intolerance, polyuria. Skin: No rashes. Neuro: See HPI. Physical Exam: Vital Signs: BP (!) 167/94 (Patient Position: Lying) Pulse 96 Temp 38.3 ??C (100.9 ??F) (Oral) Resp24 Wt 65.3 kg (144 lb) SpO2 92% BMI 24.72 kg/m2 General: Lying in bed, uncomfortable, diaphoretic HEENT: Surgical incision site CDI Eyes: No periorbital ecchymoses Ears: No perimastoid ecchymoses Neuro: Sensorium: Awake. Alert. Oriented to herself, place and year Speech - fluent, naming and repetition intact CN: CN II - PERRL. CN III, IV, - EOMI. No diplopia CN V - V1-3 dermatomes intact to LT, MM 5/5 bilat CN VII - R facial asymmetry CN VIII - Hearing intact to limited bedside exam CN IX, X - Uvula midline CN XI - SCM and trapezius 5/5 bilat CN XII - Tongue midline Motor: Pronator drift: Rt - Lt - Segment Muscle Action Left Right C5 Deltoid Shoulder Abduction 5 5 C6 Biceps Elbow flexion 5 5 C6 Extensor carpi radialis Wrist extension 5 5 C7 Triceps Elbow extension 5 5 C8 Finger flexors Grasp 5 5 T1 Interossei Finger abduction 5 5 L2 Iliopsoas Hip flexion 5 5 L3 Quadriceps Knee extension 5 5 L4 Tibialis anterior Dorsiflexion 5 5 L5 Extensor hallucis Great toe extension 5 5 S1 Gastrocnemius Plantar flexion 5 5 Sensory: LT - Intact to x4 extremities Labs: No results for input(s): NA, K, CL, CO2, BUN, CREATININE, GLUCOSE in the last 72 hours. No results for input(s): WBC, HGB, PLATELET in the last 72 hours. No results for input(s): PT, INR in the last 72 hours. No results for input(s): AST, ALT, ALB, LIPASE, AMYLASE in the last 72 hours. Invalid input(s): TBIL, ALKP, TP Radiology: Head CT: IMPRESSION: Postsurgical changes. The presence of pneumocephalus may be residual from the time of surgery, but can be seen in the setting of CSF leak. Correlation with exam suggested. No other acute intracranial abnormality Films personally reviewed / reviewed with radiologist Impression: 70 y.o. female s/p R acoustic neuroma resection (03/03) no p/w concerns of a post-op infection and CSF leak. The patient will be admitted for close neuro monitoring and further work-up. Plan: -Admit to ICU -Close neurological monitoring, q1 neuro checks -Stat brain MRI -BP control, keep SBP<160 -El-culture -Place bedside lumbar drain -Hold anticoagulation -GI prophylaxis Plan of care discussed with Dr. Chaves CC: Shiva Sewell MD PCP: Elizabeth Armenta MD @PCPADDR@ [phone] * ED Triage - Tran Ludwig RN - 03/14/2016 10:25 PM EST Pt transferred for possible CSF leak s/p R acoustic neuroma removal, pt presented with headache andneck pain. Pt presents confused Aox2, diaphoretic, tachypneic, pale. Pt alert moving all extrem No drainage noted from ear. documented in this encounter Plan of Treatment Scheduled Referrals Name Type Priority Associated Diagnoses Order Schedule OPAT: Order / Recommendation for Post Discharge IV Antibiotic Management Outpatient Referral Routine CSF leak Meningitis Acoustic neuroma Ordered: 03/23/2016 documented as of this encounter Procedures Procedure Name Priority Date/Time Associated Diagnosis Comments UTILIZATION MANAGEMENT RN SCAN 03/24/2016 12:00 AM EST SCAN, PERIPHERAL BLOOD Routine 6 4:26 AM EST HEMOGRAM Routine 03/23/2016 4:26 AM EST DIFFERENTIAL, AUTOMATED Routine 03/23/2016 4:26 AM EST CBC (WITH DIFF) Routine 03/23/2016 4:26 AM EST BASIC METABOLIC PANEL (NON-FASTING) Routine 03/23/2016 4:26 AM EST DH VAS PICC REWIRE Routine 03/22/2016 3: 58 PM EST XR PICC PLACEMENT OVER 5 YEARS (IV TEAM) Routine 03/22/2016 3:44 PM EST HEMOGRAM Routine 03/22/2016 12:40 AM EST DIFFERENTIAL, AUTOMATED Routine 03/22/2016 12:40 AM EST CBC (WITH DIFF) Routine 03/22/2016 12:40 AM EST VANCOMYCIN, TROUGH Timed 03/22/2016 12 :40 AM EST BASIC METABOLIC PANEL (NON-FASTING) Routine 03/22/2016 12:40 AM EST SCAN, PERIPHERAL BLOOD Routine 6 6:00 AM EST HEMOGRAM Routine 03/21/2016 6:00 AM EST DIFFERENTIAL, AUTOMATED Routine 03/21/2016 6:00 AM EST CBC (WITH DIFF) Routine 03/21/2016 6:00 AM EST BASIC METABOLIC PANEL (NON-FASTING) Routine 03/21/2016 6:00 AM EST VANCOMYCIN, TROUGH Timed 03/20/2016 3: 45 PM EST BASIC METABOLIC PANEL (NON-FASTING) Routine 03/20/2016 7:42 AM EST SCAN, PERIPHERAL BLOOD Routine 6 5:43 AM EST HEMOGRAM Routine 03/20/2016 5:43 AM EST DIFFERENTIAL, AUTOMATED Routine 03/20/2016 5:43 AM EST CBC (WITH DIFF) Routine 03/20/2016 5:43 AM EST BASIC METABOLIC PANEL (NON-FASTING) Routine 03/19/2016 6:00 PM EST VANCOMYCIN, TROUGH Timed 03/19/2016 8: 20 AM EST SCAN, PERIPHERAL BLOOD Routine 6 1:30 AM EST HEMOGRAM Routine 03/19/2016 1:30 AM EST DIFFERENTIAL, AUTOMATED Routine 03/19/2016 1:30 AM EST CBC (WITH DIFF) Routine 03/19/2016 1:30 AM EST BASIC METABOLIC PANEL (NON-FASTING) Routine 03/19/2016 1:30 AM EST POTASSIUM Routine 03/18/2016 10:45 PM EST BASIC METABOLIC PANEL (NON-FASTING) Routine 03/18/2016 5:[address] PICC LINE: CONTACT VASCULAR ACCESS Routine 03/18/2016 9:13 AM EST XR PICC PLACEMENT OVER 5 YEARS (IV TEAM) Routine 03/18/2016 9:04 AM EST HEMOGRAM Routine 03/18/2016 3:23 AM EST DIFFERENTIAL, AUTOMATED Routine 03/18/2016 3:23 AM EST CBC (WITH DIFF) Routine 03/18/2016 3:23 AM EST POTASSIUM Routine 03/18/2016 3:23 AM EST BASIC METABOLIC PANEL (NON-FASTING) Routine 03/18/2016 3:23 AM EST BASIC METABOLIC PANEL (NON-FASTING) Routine 03/17/2016 5:15 PM EST BLOOD CULTURE STAT 03/17/2016 11:50 AM EST URINALYSIS WITH REFLEX CULTURE Routine 03/17/2016 11:11 AM EST ECONOMIC DEVELOPMENT COORDINATOR SHUNT CULTURE Routine 03/17/2016 6:2 5 AM EST 1 TOTAL TUBE SENT CSF Routine 03/17/2016 6:24 AM EST CSF CELL COUNT Routine 03/17/2016 6:24 AM EST CSF DESC 1 Routine 03/17/2016 6:24 AM EST PROTEIN LEVEL CSF Routine 03/17/2016 6:2 4 AM EST GLUCOSE LEVEL CSF Routine 03/17/2016 6:2 4 AM EST BLOOD CULTURE STAT 03/17/2016 6:00 AM EST CRP, ACUTE INFLAMMATION Routine 03/17/2016 5:30 AM EST SCAN, PERIPHERAL BLOOD Routine 6 5:30 AM EST HEMOGRAM Routine 03/17/2016 5:30 AM EST DIFFERENTIAL, AUTOMATED Routine 03/17/2016 5:30 AM EST CBC (WITH DIFF) Routine 03/17/2016 5:30 AM EST BASIC METABOLIC PANEL (NON-FASTING) Routine 03/17/2016 5:30 AM EST MAGNESIUM Routine 03/16/2016 11:24 PM EST ELECTROLYTES PANEL Routine 03/16/2016 11 :24 PM EST BLOOD GAS 2 ARTERIAL Routine 03/16/2016 7:10 PM EST VANCOMYCIN, TROUGH Timed 03/16/2016 4: 33 PM EST ELECTROLYTES PANEL Routine 03/16/2016 4: 33 PM EST ELECTROLYTES PANEL Routine 03/16/2016 11 :05 AM EST MAGNESIUM Routine 03/16/2016 5:27 AM EST ELECTROLYTES PANEL Routine 03/16/2016 5: 27 AM EST ELECTROLYTES PANEL Routine 03/15/2016 10 :55 PM EST ELECTROLYTES PANEL Routine 03/15/2016 4: 55 PM EST CRP, ACUTE INFLAMMATION Routine 03/15/2016 10:00 AM EST MAGNESIUM Routine 03/15/2016 10:00 AM EST ELECTROLYTES PANEL Routine 03/15/2016 10 :00 AM EST ABORH RECHECK STATUS Routine 03/15/2016 3:15 AM EST SCAN, PERIPHERAL BLOOD Routine 6 3:15 AM EST HEMOGRAM Routine 03/15/2016 3:15 AM EST DIFFERENTIAL, AUTOMATED Routine 03/15/2016 3:15 AM EST ABO/RH TYPING Routine 03/15/2016 3:15 AM EST CBC (WITH DIFF) Routine 03/15/2016 3:15 AM EST ANTIBODY SCREEN Routine 03/15/2016 3:15 AM EST TYPE AND SCREEN ([facility]/CGP/JANET) Routine 03/15/2016 3:15 AM EST ALBUMIN LEVEL Routine 03/15/2016 3:15 AM EST BASIC METABOLIC PANEL (NON-FASTING) Routine 03/15/2016 3:15 AM EST URINALYSIS WITH REFLEX CULTURE Routine 03/15/2016 2:49 AM EST BLOOD CULTURE STAT 03/15/2016 1:06 AM EST MISCELLANEOUS LAB REQUEST Routine 03/15/2016 1:00 AM EST 1 TOTAL TUBE SENT CSF STAT 03/15/2016 1:00 AM EST CSF CELL COUNT STAT 03/15/2016 1:00 AM EST CSF DESC 1 STAT 03/15/2016 1:00 AM EST FUNGUS CULTURE STAT 03/15/2016 1:00 AM EST PROTEIN LEVEL CSF Routine 03/15/2016 1:0 0 AM EST GLUCOSE LEVEL CSF Routine 03/15/2016 1:0 0 AM EST CSF CULTURE Routine 03/15/2016 12:30 AM EST MRI BRAIN WWO CONTRAST (GENERIC) STAT 03/14/2016 11:45 PM EST XR CHEST PA AND LATERAL STAT 03/14/2016 10:51 PM EST L-LACTATE2 WHOLE BLOOD Routine 6 10:41 PM EST SCAN, PERIPHERAL BLOOD STAT 6 10:35 PM EST HEMOGRAM STAT 03/14/2016 10:35 PM EST DIFFERENTIAL, AUTOMATED STAT 03/14/2016 10:35 PM EST GOLD TUBE HOLD STAT 03/14/2016 10:35 PM EST BLOOD CULTURE STAT 03/14/2016 10:35 PM EST APTT STAT 03/14/2016 10:35 PM EST PROTHROMBIN TIME STAT 03/14/2016 10:3 5 PM EST CBC (WITH DIFF) STAT 03/14/2016 10:35 PM EST CORTISOL STAT 03/14/2016 10:35 PM EST BASIC METABOLIC PANEL (NON-FASTING) STAT 03/14/2016 10:35 PM EST documented in this encounter Results * SCAN DOC: UTILIZATION MANAGEMENT RN (03/24/2016 12:00 AM EST) Anatomical Region Laterality Modality Other Scanning Provider MEDIA MGR SCAN EXT O RDR/RSLT * Scan, Peripheral Blood (03/23/2016 4:26 AM EST) Pathologist [facility] [place] Plat Estimate Normal [facility] RBC Morphology Abnormal [facility] Atypical Lymph Moderate [facility] Smudge Cells Present [facility] Blood specimen (specimen) 03/23/2016 4:26 AM EST 03/23/2016 4:33 AM EST Narrative Resulting Agency Comment Spec In Lab Iván Chaves MD HEMATOLOGY ORDERABLE S [facility] [place] [address] * (ABNORMAL) Differential, Automated (03/23/2016 4:26 AM EST) Neutrophils % 39.1 % [facility] Neutr Abs (ANC) 7.97(H) 1.70 - 6.10 x10(3)/mc L [facility] Lymphocytes % 53.8 % [facility] Lymphocytes Abs 11.0(H) 0.9 - 3.2 x10(3)/mc L [facility] Monocytes % 4.2 % [facility] Monocyte Abs 0.8 0.3 - 0.9 x10(3)/mc L [facility] Eosinophils % 2.2 % [facility] Eosinophils Abs 0.4 0.0 - 0.4 x10(3)/[facility] Basophils % 0.3 % [facility] Basophils Abs 0.1 0.0 - 0.1 x10(3)/[facility] Immature Gran % 0.40 % [facility] Comment: Immature granulocytes(IG's)percentage and absolute count will include metamyelocytes, myelocytes, and promyelocytes. Blood smears from CBCs yielding IG's will be scanned manually for concordance. If this scan disagrees with the automated IG or if promyelocytes are noted, a manual differential will be performed. Elizabeth Gran Abs 0.08(H) 0.00 - 0.04 x10(3)/[facility] Blood specimen (specimen) 03/23/2016 4:26 AM EST 03/23/2016 4:33 AM EST Narrative Resulting Agency Comment Spec In Lab Iván Chaves MD HEMATOLOGY ORDERABLE S Performing Organization Address City/State/[facility] Co de Phone Number [facility] [place] [address] * (ABNORMAL) Hemogram (03/23/2016 4:26 AM EST) WBC 20.4(H) 4.0 - 9.5 x10(3)/[facility] RBC 4.19 4.00 - 5.21 x10(6)/[facility] Hemoglobin 12.2 11.7 - 15.5 gm/dL [facility] Hematocrit 36.4 35.7 - 45.8 % [facility] MCV 86.9 82.6 - 94.4 fL [facility] MCH 29.1 27.1 - 32.0 pg [facility] [place] [place] MCHC 33.5 31.7 - 35.0 gm/dL [facility] [place] Platelets 218 145 - 357 x10(3)/[facility] RDWSD 41.5 37.0 - 46.0 fL [facility] RDWCV 13.5 11.5 - 14.1 % [facility] MPV 8.6 7.6 - 12.9 fL [facility] nRBC % Auto 0.0 % [facility] nRBC Abs Auto 0.000 0.000 - 0.000 x10(3)/mcL [facility] Blood specimen (specimen) 03/23/2016 4:26 AM EST 03/23/2016 4:33 AM EST Narrative Resulting Agency Comment Spec In Lab Iván Chaves MD HEMATOLOGY ORDERABLE S [facility] [place] [address] * (ABNORMAL) Basic Metabolic Panel (non-fasting) (03/23/2016 4:26 AM EST) Glucose Lvl 132 65 - 199 mg/dL [facility] Comment:Diabetes: >=200 mg/d L plus symptoms BUN 12 8 - 18 mg/dL [facility] Creatinine 0.62(L) 0.70 - 1.20 mg/dL [facility] Comment: Please note that the pediatric reference intervals supplied above were not validated at [facility]. Results from pediatric patients should be interpreted in conjunction to the patient's age, height and muscle mass. Sodium 138 135 - 145 mmol/L [facility] Potassium 3.9 3.5 - 5.0 mmol/L [facility] Comment: Please note: ??Patients with WBC >100,000 may have falsely elevated Potassium levels. ??For accurate Potassium quantification in these patients send serum separator tube (gold top) for subsequent determinations. ??Contact the Clinical Chemistry Laboratory if there are any questions. Chloride 97(L) 98 - 107 mmol/L [facility] CO2 25 22 - 31 mmol/L [facility] Anion Gap 16(H) 5 - 15 mmol/L [facility] Calcium 9.0 8.5 - 10.5 mg/dL [facility] Estimated GFR >60 >=60 [facility] Comment: This estimated GFR (eGFR) value [...] the following links into your internet browser. [email or web address] Blood specimen (specimen) 03/23/2016 4:26 AM EST 03/23/2016 4:33 AM EST Narrative Resulting Agency Comment Spec In Lab Iván Chaves MD CHEMISTRY ORDERABLES [facility] [place] [address] * PICC Line Rewire Is PICC procedure required PRIOR to patients discharge? Yes (03/22/2016 3:58 PM EST) Narrative Stephan Melendez RN - 03/22/2016 3:58 PM EST Stephan Melendez RN ? 03/22/2016 ??3:58 PM PICC/Midline Insertion Procedure Note REWIRE FROM DOUBLE TO SINGLE LUMEN Indications: Anti-infective This insertion was not to replace a malfunctioning catheter. This insertion was not due to a suspected line-associated infection. Location of Procedure: X-Ray Room 11 Risks and Benefits: The risks and benefits of this procedure were reviewed and informed consent was obtained obtained. Time Out: Prior to the start of the procedure, the patient's identity, intended procedure, site/side, correct patient positioning and presence of the site junior was confirmed as applicable. The medical history and chart were reviewed to rule out potential contraindications to the planned procedure. 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 Catheter type: PICC Lot number: [id number] Procedure Technique: Skin was prepped with chlorhexidine. Skin preparation agent was completely dry at the time of first skin puncture. The following barrier precaution methods were used:large sterile drape, maske/eye shield, large sterile gown, sterile gloves and cap. ZERO ml of 1% Lidocaine was used for skin wheal. Ultrasound was not used for guidance. Radiographic contrast agent was not injected for vein identification. Procedure Details: Order received for catheter placement. A 4 Fr. single lumen Bard Power catheter was placed into the right basilic vein over a 0.018 inch guidewire using modified seldinger technique and fluoroscopy. Arm circumference was 23 cm at 2 cm above the insertion site. Final catheter length (with trimming): 35 cm Internal: 35 cm External: 0 cm Tip in SVC per DR. GIBBONS The line was not placed over a guidewire. Post Procedure: Diagnosis: CSF LEAK Blood return noted on aspiration of line after placement confirmed. 3 mls of normal saline infused free flowing to gravity via PICC after insertion. Sterile dressing applied: CHG Impregnated Tegaderm. Findings: The patient did tolerate the procedure well. No Complications. Procedure Comments: REWIRE FROM DOUBLE TO SINGLE LUMEN STEPHAN MELENDEZ RN 03/22/2016 Iván Chaves MD PROCEDURE/MINOR SURG ICAL ORDERABLES * XR PICC Placement Over 5 Years (IV Team) (03/22/2016 3:44 PM EST) Anatomical Region Laterality Modality N/A Radio Fluoroscop y Impressions 03/22/2016 3:47 PM EST Appropriate placement right PICC line Narrative 03/22/2016 3:47 PM EST EXAMINATION: XR PICC PLACEMENT OVER 5 YEARS (IV TEAM) CLINICAL HISTORY: Confirmation of PICC line placement, IV Antibiotic Therapy TECHNIQUE: C-arm placement of PICC. Limited view of the line tip only. COMPARISON: 03/18/2016 FINDINGS: Intraprocedural frontal radiograph of the mediastinum demonstrates a Right PICC, with the catheter tip projected at the cavoatrial junction. Procedure Note Archana Horta MD - 03/22/2016 EXAMINATION: XR PICC PLACEMENT OVER 5 YEARS (IV TEAM) CLINICAL HISTORY: Confirmation of PICC line placement, IV AntibioticTherapy TECHNIQUE: C-arm placement of PICC. Limited view of the line tip only. COMPARISON: 03/18/2016 FINDINGS: Intraprocedural frontal radiograph of the mediastinumdemonstrates a Right PICC, with the catheter tip projected at the cavoatrial junction. IMPRESSION Appropriate placement right PICC line Iván Chaves MD IMG FLUORO ORDERABLE S * (ABNORMAL) Differential, Automated (03/22/2016 12:40 AM EST) Neutrophils % 24.2 % [facility] Neutr Abs (ANC) 5.90 1.70 - 6.10 x10(3)/ L [facility] Lymphocytes % 69.1 % [facility] Lymphocytes Abs 16.8(H) 0.9 - 3.2 x10(3)/[facility] Monocytes % 3.8 % [facility] Monocyte Abs 0.9 0.3 - 0.9 x10(3)/[facility] Eosinophils % 2.1 % [facility] Eosinophils Abs 0.5(H) 0.0 - 0.4 x10(3)/[facility] Basophils % 0.4 % [facility] Basophils Abs 0.1 0.0 - 0.1 x10(3)/[facility] Immature Gran % 0.40 % [facility] Comment: Immature granulocytes(IG's)percentage and absolute count will include metamyelocytes, myelocytes, and promyelocytes. Blood smears from CBCs yielding IG's will be scanned manually for concordance. If this scan disagrees with the automated IG or if promyelocytes are noted, a manual differential will be performed. Elizabeth Gran Abs 0.10(H) 0.00 - 0.04 x10(3)/ L [facility] Blood specimen (specimen) 03/22/2016 12:40 AM EST 03/22/2016 12:44 AM EST Narrative Resulting Agency Comment Spec In Lab Iván Chaves MD HEMATOLOGY ORDERABLE S [facility] [place] [address] * (ABNORMAL) Hemogram (03/22/2016 12:40 AM EST) Pathologist [facility] [place] WBC 24.4(H) 4.0 - 9.5 x10(3)/[facility] RBC 4.21 4.00 - 5.21 x10(6)/[facility] Hemoglobin 12.1 11.7 - 15.5 gm/dL [facility] Hematocrit 36.0 35.7 - 45.8 % [facility] MCV 85.5 82.6 - 94.4 [facility] MCH 28.7 27.1 - 32.0 pg [facility] MCHC 33.6 31.7 - 35.0 gm/dL [facility] Platelets 225 145 - 357 x10(3)/[facility] RDWSD 41.1 37.0 - 46.0 [facility] RDWCV 13.3 11.5 - 14.1 % [facility] MPV 8.6 7.6 - 12.9 [facility] nRBC % Auto 0.1 % [facility] nRBC Abs Auto 0.030(H) 0.000 - 0.000 x10(3)/[facility] Blood specimen (specimen) 03/22/2016 12:40 AM EST 03/22/2016 12:44 AM EST Narrative Resulting Agency Comment Spec In Lab Iván Chaves MD HEMATOLOGY ORDERABLE S [facility] [place] [address] * (ABNORMAL) Basic Metabolic Panel (non-fasting) (03/22/2016 12:40 AM EST) Pathologist [facility] Glucose Lvl 120 65 - 199 mg/dL [facility] Comment:Diabetes: >=200 mg/d L plus symptoms BUN 11 8 - 18 mg/dL [facility] Creatinine 0.66(L) 0.70 - 1.20 mg/dL [facility] Comment: Please note that the pediatric reference intervals supplied above were not validated at [facility]. Results from pediatric patients should be interpreted in conjunction to the patient's age, height and muscle mass. Sodium 136 135 - 145 mmol/L [facility] Potassium 3.7 3.5 - 5.0 mmol/L [facility] Comment: Please note: ??Patients with WBC >100,000 may have falsely elevated Potassium levels. ??For accurate Potassium quantification in these patients send serum separator tube (gold top) for subsequent determinations. ??Contact the Clinical Chemistry Laboratory if there are any questions. Chloride 95(L) 98 - 107 mmol/L [facility] CO2 26 22 - 31 mmol/L [facility] Anion Gap 15 5 - 15 mmol/L [facility] Calcium 9.0 8.5 - 10.5 mg/dL [facility] Estimated GFR >60 >=60 [facility] Comment: This estimated GFR (eGFR) value [...] the following links into your internet browser. [email or web address] Blood specimen (specimen) 03/22/2016 12:40 AM EST 03/22/2016 12:44 AM EST Narrative Resulting Agency Comment Spec In Lab Iván Chaves MD CHEMISTRY ORDERABLES [facility] [place] [address] * Vancomycin, trough (03/22/2016 12:40 AM EST) Vanc Trough 14.2 mg/L [facility] Comment: Therapeutic range for complicated infections such as bacteremia, endocarditis, osteomyelitis, meningitis, and hospital-acquired pneumonia caused by S. aureus: 15-20 mg/L Therapeutic range for other indications: 10-15 mg/L Toxic: >25mg/L Reference: Vancomycin Therapeutic Monitoring: Review and Recommendations from the ASHP, IDSA and SIDP Task Force. ??[employer]. 2009; 66:82-98 Blood specimen (specimen) 03/22/2016 12:40 AM EST 03/22/2016 12:44 AM EST Narrative Resulting Agency Comment Spec In Lab Iván Chaves MD CHEMISTRY ORDERABLES Performing Organization Address [facility] Co de Phone Number [facility] [place] [address] * Scan, Peripheral Blood (03/21/2016 6:00 AM EST) Plat Estimate Normal [facility] RBC Morphology Abnormal [facility] Ovalocytes 1-5 /HPF [facility] Smudge Cells Present [facility] Blood specimen (specimen) 03/21/2016 6:00 AM EST 03/21/2016 6:07 AM EST Narrative Resulting Agency Comment Spec In Lab Iván Chaves MD HEMATOLOGY ORDERABLE S Performing Organization Address [facility]/ZIP Co de Phone Number [facility] [place] [address] * (ABNORMAL) Differential, Automated (03/21/2016 6:00 AM EST) Neutrophils % 26.7 % [facility] Neutr Abs (ANC) 5.40 1.70 - 6.10 x10(3)/mc L [facility] Lymphocytes % 68.0 % [facility] Lymphocytes Abs 13.8(H) 0.9 - 3.2 x10(3)/mc L [facility] Monocytes % 3.4 % [facility] Monocyte Abs 0.7 0.3 - 0.9 x10(3)/[facility] Eosinophils % 1.3 % [facility] Eosinophils Abs 0.3 0.0 - 0.4 x10(3)/[facility] Basophils % 0.2 % [facility] Basophils Abs 0.0 0.0 - 0.1 x10(3)/[facility] Immature Gran % 0.40 % [facility] Comment: Immature granulocytes(IG's)percentage and absolute count will include metamyelocytes, myelocytes, and promyelocytes. Blood smears from CBCs yielding IG's will be scanned manually for concordance. If this scan disagrees with the automated IG or if promyelocytes are noted, a manual differential will be performed. Elizabeth Gran Abs 0.09(H) 0.00 - 0.04 x10(3)/[facility] Blood specimen (specimen) 03/21/2016 6:00 AM EST 03/21/2016 6:07 AM EST Narrative Resulting Agency Comment Spec In Lab Iván Chaves MD HEMATOLOGY ORDERABLE S [facility] [place] [address] * (ABNORMAL) Hemogram (03/21/2016 6:00 AM EST) WBC 20.2(H) 4.0 - 9.5 x10(3)/[facility] RBC 4.10 4.00 - 5.21 x10(6)/[facility] Hemoglobin 12.2 11.7 - 15.5 gm/dL [facility] Hematocrit 35.5(L) 35.7 - 45.8 % [facility] [place] MCV 86.6 82.6 - 94.4 fL [facility] MCH 29.8 27.1 - 32.0 pg [facility] MCHC 34.4 31.7 - 35.0 gm/dL [facility] Platelets 204 145 - 357 x10(3)/[facility] RDWSD 41.1 37.0 - 46.0 fL [facility] RDWCV 13.3 11.5 - 14.1 % [facility] MPV 8.6 7.6 - 12.9 fL [facility] nRBC % Auto 0.1 % [facility] nRBC Abs Auto 0.020(H) 0.000 - 0.000 x10(3)/[facility] Blood specimen (specimen) 03/21/2016 6:00 AM EST 03/21/2016 6:07 AM EST Narrative Resulting Agency Comment Spec In Lab Iván Chaves MD HEMATOLOGY ORDERABLE S Performing Organization Address City/State/[facility] Co de Phone Number [facility] [place] [phone] * (ABNORMAL) Basic Metabolic Panel (non-fasting) (03/21/2016 6:00 AM EST) Glucose Lvl 120 65 - 199 mg/dL [facility] Comment:Diabetes: >=200 mg/d L plus symptoms BUN 10 8 - 18 mg/dL [facility] Creatinine 0.60(L) 0.70 - 1.20 mg/dL [facility] Comment: Please note that the pediatric reference intervals supplied above were not validated at [facility]. Results from pediatric patients should be interpreted in conjunction to the patient's age, height and muscle mass. Sodium 141 135 - 145 mmol/L [facility] Potassium 3.4(L) 3.5 - 5.0 mmol/L [facility] Comment: Please note: ??Patients with WBC >100,000 may have falsely elevated Potassium levels. ??For accurate Potassium quantification in these patients send serum separator tube (gold top) for subsequent determinations. ??Contact the Clinical Chemistry Laboratory if there are any questions. Chloride 97(L) 98 - 107 mmol/L [facility] CO2 26 22 - 31 mmol/L [facility] Anion Gap 18(H) 5 - 15 mmol/L [facility] Calcium 8.7 8.5 - 10.5 mg/dL [facility] Estimated GFR >60 >=60 [facility] Comment: This estimated GFR (eGFR) value [...] the following links into your internet browser. [email or web address] Blood specimen (specimen) 03/21/2016 6:00 AM EST 03/21/2016 6:07 AM EST Narrative Resulting Agency Comment Spec In Lab Iván Chaves MD CHEMISTRY ORDERABLES Performing Organization Address City/[facility] Co de Phone Number [facility] [place] [address] * Vancomycin, trough (03/20/2016 3:45 PM EST) Vanc Trough 12.3 mg/L [facility] Comment: Therapeutic range for complicated infections such as bacteremia, endocarditis, osteomyelitis, meningitis, and hospital-acquired pneumonia caused by S. aureus: 15-20 mg/L Therapeutic range for other indications: 10-15 mg/L Toxic: >25 mg/L Reference: Vancomycin Therapeutic Monitoring: Review and Recommendations from the ASHP, IDSA and SIDP Task Force. ??[employer]. 2009; 66:82-98 Blood specimen (specimen) 03/20/2016 3:45 PM EST 03/20/2016 4:08 PM EST Narrative Resulting Agency Comment Spec In Lab Iván Chaves MD CHEMISTRY ORDERABLES [facility] [facility] [place] [address] * (ABNORMAL) Basic Metabolic Panel (non-fasting) (03/20/2016 7:42 AM EST) Glucose Lvl 130 65 - 199 mg/dL [facility] Comment:Diabetes: >=200 mg/d L plus symptoms BUN 16 8 - 18 mg/dL [facility] Creatinine 0.61(L) 0.70 - 1.20 mg/dL [facility] Comment: Please note that the pediatric reference intervals supplied above were not validated at [facility]. Results from pediatric patients should be interpreted in conjunction to the patient's age, height and muscle mass. Sodium 137 135 - 145 mmol/L [facility] Potassium 3.5 3.5 - 5.0 mmol/L [facility] Comment: Please note: ??Patients with WBC >100,000 may have falsely elevated Potassium levels. ??For accurate Potassium quantification in these patients send serum separator tube (gold top) for subsequent determinations. ??Contact the Clinical Chemistry Laboratory if there are any questions. Chloride 96(L) 98 - 107 mmol/L [facility] CO2 24 22 - 31 mmol/L [facility] Anion Gap 17(H) 5 - 15 mmol/L [facility] Calcium 8.5 8.5 - 10.5 mg/dL [facility] Estimated GFR >60 >=60 [facility] Comment: This estimated GFR (eGFR) value [...] the following links into your internet browser. [email or web address] Blood specimen (specimen) 03/20/2016 7:42 AM EST 03/20/2016 7:50 AM EST Narrative Resulting Agency Comment Spec In Lab Iván Chaves MD CHEMISTRY ORDERABLES Performing Organization Address [facility]/ZIP Co de Phone Number [facility] [place] [place] [address] * Scan, Peripheral Blood (03/20/2016 5:43 AM EST) Pathologist [facility] Plat Estimate Normal [facility] RBC Morphology Abnormal [facility] Ovalocytes 1-5 /HPF [facility] Atypical Lymph Moderate [facility] Smudge Cells Present [facility] Blood specimen (specimen) 03/20/2016 5:43 AM EST 03/20/2016 5:47 AM EST Narrative Resulting Agency Comment Spec In Lab Iván Chaves MD HEMATOLOGY ORDERABLE S Performing Organization Address [facility] Co de Phone Number [facility] [place] [address] * (ABNORMAL) Differential, Automated (03/20/2016 5:43 AM EST) [facility] Neutrophils % 27.3 % [facility] Neutr Abs (ANC) 6.67(H) 1.70 - 6.10 x10(3)/mc L [facility] Lymphocytes % 67.2 % [facility] Lymphocytes Abs 16.4(H) 0.9 - 3.2 x10(3)/mc L [facility] Monocytes % 3.6 % [facility] Monocyte Abs 0.9 0.3 - 0.9 x10(3)/mc L [facility] Eosinophils % 1.2 % [facility] Eosinophils Abs 0.3 0.0 - 0.4 x10(3)/mc L [facility] Basophils % 0.3 % [facility] Basophils Abs 0.1 0.0 - 0.1 x10(3)/mc L [facility] Immature Gran % 0.40 % [facility] Comment: Immature granulocytes(IG's)percentage and absolute count will include metamyelocytes, myelocytes, and promyelocytes. Blood smears from CBCs yielding IG's will be scanned manually for concordance. If this scan disagrees with the automated IG or if promyelocytes are noted, a manual differential will be performed. Elizabeth Gran Abs 0.09(H) 0.00 - 0.04 x10(3)/[facility] Blood specimen (specimen) 03/20/2016 5:43 AM EST 03/20/2016 5:47 AM EST Narrative Resulting Agency Comment Spec In Lab Iván Chaves MD HEMATOLOGY ORDERABLE S [facility] [place] [address] * (ABNORMAL) Hemogram (03/20/2016 5:43 AM EST) WBC 24.4(H) 4.0 - 9.5 x10(3)/[facility] RBC 4.34 4.00 - 5.21 x10(6)/[facility] Hemoglobin 12.8 11.7 - 15.5 gm/dL [facility] Hematocrit 38.0 35.7 - 45.8 % [facility] MCV 87.6 82.6 - 94.4 fL [facility] MCH 29.5 27.1 - 32.0 pg [facility] MCHC 33.7 31.7 - 35.0 gm/dL [facility] Platelets 251 145 - 357 x10(3)/[facility] RDWSD 41.6 37.0 - 46.0 [facility] RDWCV 13.2 11.5 - 14.1 % [facility] MPV 8.4 7.6 - 12.9 [facility] nRBC % Auto 0.0 % [facility] nRBC Abs Auto 0.000 0.000 - 0.000 x10(3)/mcL [facility] Blood specimen (specimen) 03/20/2016 5:43 AM EST 03/20/2016 5:47 AM EST Narrative Resulting Agency Comment Spec In Lab Iván Chaves MD HEMATOLOGY ORDERABLE S [facility] [place] [address] * (ABNORMAL) Basic Metabolic Panel (non-fasting) (03/19/2016 6:00 PM EST) Glucose Lvl 187 65 - 199 mg/dL [facility] Comment:Diabetes: >=200 mg/d L plus symptoms BUN 18 8 - 18 mg/dL [facility] Creatinine 0.66(L) 0.70 - 1.20 mg/dL [facility] Comment: Please note that the pediatric reference intervals supplied above were not validated at [facility]. Results from pediatric patients should be interpreted in conjunction to the patient's age, height and muscle mass. Sodium 135 135 - 145 mmol/L [facility] Potassium 3.7 3.5 - 5.0 mmol/L [facility] Comment: Please note: ??Patients with WBC >100,000 may have falsely elevated Potassium levels. ??For accurate Potassium quantification in these patients send serum separator tube (gold top) for subsequent determinations. ??Contact the Clinical Chemistry Laboratory if there are any questions. Chloride 97(L) 98 - 107 mmol/L [facility] CO2 25 22 - 31 mmol/L [facility] Anion Gap 13 5 - 15 mmol/L [facility] Calcium 8.6 8.5 - 10.5 mg/dL [facility] Estimated GFR >60 >=60 [facility] Comment: This estimated GFR (eGFR) value [...] the following links into your internet browser. [email or web address] Blood specimen (specimen) 03/19/2016 6:00 PM EST 03/19/2016 6:49 PM EST Narrative Resulting Agency Comment Spec In Lab Iván Chaves MD CHEMISTRY ORDERABLES Performing Organization Address [facility] Co de Phone Number [facility] [place] [address] * Vancomycin, trough (03/19/2016 8:20 AM EST) Vanc Trough 7.6 mg/L [facility] Comment: Therapeutic range for complicated infections such as bacteremia, endocarditis, osteomyelitis, meningitis, and hospital-acquired pneumonia caused by S. aureus: 15-20 mg/L Therapeutic range for other indications: 10-15 mg/L Toxic: >25mg/L Reference: Vancomycin Therapeutic Monitoring: Review and Recommendations from the ASHP, IDSA and SIDP Task Force. ??Am J [employer]. 2009; 66:82-98 Blood specimen (specimen) 03/19/2016 8:20 AM EST 03/19/2016 8:35 AM EST Narrative Resulting Agency Comment Spec In Lab Iván Chaves MD CHEMISTRY ORDERABLES Performing Organization Address [facility] Co de Phone Number [facility] [place] [address] * Scan, Peripheral Blood (03/19/2016 1:30 AM EST) Plat Estimate Normal [facility] RBC Morphology Abnormal [facility] Ovalocytes 1-5 /HPF [facility] Smudge Cells Present [facility] Blood specimen (specimen) 03/19/2016 1:30 AM EST 03/19/2016 1:35 AM EST Narrative Resulting Agency Comment Spec In Lab Iván Chaves MD HEMATOLOGY ORDERABLE S [facility] [place] [address] * (ABNORMAL) Differential, Automated (03/19/2016 1:30 AM EST) Neutrophils % 27.2 % [facility] Neutr Abs (ANC) 5.73 1.70 - 6.10 x10(3)/[facility] LAB[facility] Lymphocytes % 66.9 % [facility] Lymphocytes Abs 14.1(H) 0.9 - 3.2 x10(3)/[facility] Monocytes % 4.4 % [facility] Monocyte Abs 0.9 0.3 - 0.9 x10(3)/[facility] Eosinophils % 0.6 % [facility] Eosinophils Abs 0.1 0.0 - 0.4 x10(3)/[facility] Basophils % 0.3 % [facility] Basophils Abs 0.1 0.0 - 0.1 x10(3)/[facility] Immature Gran % 0.60 % [facility] Comment: Immature granulocytes(IG's)percentage and absolute count will include metamyelocytes, myelocytes, and promyelocytes. Blood smears from CBCs yielding IG's will be scanned manually for concordance. If this scan disagrees with the automated IG or if promyelocytes are noted, a manual differential will be performed. Elizabeth Gran Abs 0.13(H) 0.00 - 0.04 x10(3)/[facility] Blood specimen (specimen) 03/19/2016 1:30 AM EST 03/19/2016 1:35 AM EST Narrative Resulting Agency Comment Spec In Lab Iván Chaves MD HEMATOLOGY ORDERABLE S [facility] [place] [address] * (ABNORMAL) Hemogram (03/19/2016 1:30 AM EST) Pathologist [facility] WBC 21.0(H) 4.0 - 9.5 x10(3)/[facility] LAB[facility] RBC 4.27 4.00 - 5.21 x10(6)/[facility] Hemoglobin 12.8 11.7 - 15.5 gm/dL [facility] Hematocrit 37.4 35.7 - 45.8 % [facility] MCV 87.6 82.6 - 94.4 [facility] MCH 30.0 27.1 - 32.0 pg [facility] MCHC 34.2 31.7 - 35.0 gm/dL [facility] Platelets 254 145 - 357 x10(3)/[facility] RDWSD 41.1 37.0 - 46.0 [facility] RDWCV 13.1 11.5 - 14.1 % [facility] MPV 8.5 7.6 - 12.9 [facility] nRBC % Auto 0.1 % [facility] nRBC Abs Auto 0.020(H) 0.000 - 0.000 x10(3)/[facility] Blood specimen (specimen) 03/19/2016 1:30 AM EST 03/19/2016 1:35 AM EST Narrative Resulting Agency Comment Spec In Lab Iván Chaves MD HEMATOLOGY ORDERABLE S [facility] [place] [address] * (ABNORMAL) Basic Metabolic Panel (non-fasting) (03/19/2016 1:30 AM EST) Pathologist [facility] Glucose Lvl 131 65 - 199 mg/dL [facility] Comment:Diabetes: >=200 mg/d L plus symptoms BUN 14 8 - 18 mg/dL [facility] Creatinine 0.58(L) 0.70 - 1.20 mg/dL [facility] Comment: Please note that the pediatric reference intervals supplied above were not validated at [facility]. Results from pediatric patients should be interpreted in conjunction to the patient's age, height and muscle mass. Sodium 137 135 - 145 mmol/L [facility] Potassium 3.6 3.5 - 5.0 mmol/L [facility] Comment: Please note: ??Patients with WBC >100,000 may have falsely elevated Potassium levels. ??For accurate Potassium quantification in these patients send serum separator tube (gold top) for subsequent determinations. ??Contact the Clinical Chemistry Laboratory if there are any questions. Chloride 95(L) 98 - 107 mmol/L [facility] CO2 27 22 - 31 mmol/L [facility] Anion Gap 15 5 - 15 mmol/L [facility] Calcium 8.7 8.5 - 10.5 mg/dL [facility] Estimated GFR >60 >=60 [facility] Comment: This estimated GFR (eGFR) value [...] the following links into your internet browser. [email or web address] Blood specimen (specimen) 03/19/2016 1:30 AM EST 03/19/2016 1:35 AM EST Narrative Resulting Agency Comment Spec In Lab Iván Chaves MD CHEMISTRY ORDERABLES [facility] [place] [address] * Potassium (03/18/2016 10:45 PM EST) Potassium 3.7 3.5 - 5.0 mmol/L [facility] Comment: Please note: ??Patients with WBC >100,000 may have falsely elevated Potassium levels. ??For accurate Potassium quantification in these patients send serum separator tube (gold top) for subsequent determinations. ??Contact the Clinical Chemistry Laboratory if there are any questions. Blood specimen (specimen) 03/18/2016 10:45 PM EST 03/18/2016 10:49 PM EST Narrative Resulting Agency Comment Spec In Lab Iván Chaves MD CHEMISTRY ORDERABLES [facility] [place] [address] * (ABNORMAL) Basic Metabolic Panel (non-fasting) (03/18/2016 5:00 PM EST) Pathologist [facility] Glucose Lvl 188 65 - 199 mg/dL [facility] Comment:Diabetes: >=200 mg/d L plus symptoms BUN 12 8 - 18 mg/dL [facility] Creatinine 0.63(L) 0.70 - 1.20 mg/dL [facility] Comment: Please note that the pediatric reference intervals supplied above were not validated at [facility]. Results from pediatric patients should be interpreted in conjunction to the patient's age, height and muscle mass. Sodium 136 135 - 145 mmol/L [facility] Potassium 2.9(Criti marco) 3.5 - 5.0 mmol/L [facility] Comment: Called by: NABILA, Read back by: NEEL MARIA, Date/Time:03/18/16 17:44. Please note: ??Patients with WBC >100,000 may have falsely elevated Potassium levels. ??For accurate Potassium quantification in these patients send serum separator tube (gold top) for subsequent determinations. ??Contact the Clinical Chemistry Laboratory if there are any questions. Chloride 90(L) 98 - 107 mmol/L [facility] CO2 28 22 - 31 mmol/L [facility] Anion Gap 18(H) 5 - 15 mmol/L [facility] Calcium 9.1 8.5 - 10.5 mg/dL [facility] Estimated GFR >60 >=60 [facility] Comment: This estimated GFR (eGFR) [...] the following links into your internet browser. [email or web address] Blood specimen (specimen) 03/18/2016 5:00 PM EST 03/18/2016 5:12 PM EST Narrative Resulting Agency Comment Spec In Lab Iván Chaves MD CHEMISTRY ORDERABLES [facility] [place] [id number] * Place PICC Line: Contact Vascular Access Page [phone] Extremity to exclude: No restrictions; Is PICC procedure required PRIOR to patients discharge? Yes (03/18/2016 9:13 AM EST) Narrative Harleen Agrawal RN - 03/18/2016 9:13 AM EST Harleen Agrawal RN ? 03/18/2016 ??9:13 AM PICC/Midline Insertion Procedure Note Indications: Anti-infective, Access and Medication Administration This insertion was not to replace a malfunctioning catheter. This insertion was not due to a suspected line-associated infection. Location of Procedure: X-Ray Room 11 Risks and Benefits: The risks and benefits of this procedure were reviewed and informed consent was obtained obtained. Time Out: Prior to the start of the procedure, the patient's identity, intended procedure, site/side, correct patient positioning and presence of the site junior was confirmed as applicable. The medical history and chart were reviewed to rule out potential contraindications to the planned procedure. 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 Catheter type: PICC Lot number: [id number] Procedure Technique: Skin was prepped with chlorhexidine. Skin preparation agent was completely dry at the time of first skin puncture. The following barrier precaution methods were used:large sterile drape, maske/eye shield, large sterile gown, sterile gloves and cap. 2 ml of 1% Lidocaine was used for skin wheal. Ultrasound was used for guidance. ??Radiographic contrast agent was not injected for vein identification. Procedure Details: Order received for catheter placement. A 5 Fr. double lumen Bard Power catheter was placed into the right basilic vein over a 0.018 inch guidewire using modified seldinger technique and fluoroscopy. Arm circumference was 24 cm at 2 cm above the insertion site. Final catheter length (with trimming): 34 cm Internal: 34 cm External: 0 cm Tip in SVC per Dr. Montejo The line was not placed over a guidewire. Post Procedure: Diagnosis: RIGHT SUBOCCIPITAL CRANI Blood return noted on aspiration of line after placement confirmed. 5 mls of normal saline infused free flowing to gravity via PICC after insertion. Sterile dressing applied: CHG Impregnated Tegaderm. Findings: The patient did tolerate the procedure well. No Complications. Procedure Comments: HARLEEN AGRAWAL RN 03/18/2016 Iván Chaves MD PROCEDURE/MINOR SURG ICAL ORDERABLES * XR PICC Placement Over 5 Years (IV Team) (03/18/2016 9:04 AM EST) Anatomical Region Laterality Modality N/A Radio Fluoroscop y Narrative 03/18/2016 9:06 AM EST EXAMINATION: XR PICC PLACEMENT OVER 5 YEARS (IV TEAM) CLINICAL HISTORY: Confirmation of PICC line placement TECHNIQUE: C-arm placement of PICC. Limited view of the line tip only. FINDINGS: Intraprocedural frontal radiograph of the mediastinum demonstrates a Right PICC, with the catheter tip projected at the mid SVC. Procedure Note Roseline Montejo MD - 03/18/2016 EXAMINATION: XR PICC PLACEMENT OVER 5 YEARS (IV TEAM) CLINICAL HISTORY: Confirmation of PICC line placement TECHNIQUE: C-arm placement of PICC. Limited view of the line tip only. FINDINGS: Intraprocedural frontal radiograph of the mediastinumdemonstrates a Right PICC, with the catheter tip projected at the mid SVC. Iván Chaves MD IMG FLUORO ORDERABLE S * (ABNORMAL) Basic Metabolic Panel (non-fasting) (03/18/2016 3:23 AM EST) Glucose Lvl 152 65 - 199 mg/dL [facility] Comment:Diabetes: >=200 mg/d L plus symptoms BUN 10 8 - 18 mg/dL [facility] Comment:result rechecked-sb Creatinine 0.68(L) 0.70 - 1.20 mg/dL [facility] Comment: Please note that the pediatric reference intervals supplied above were not validated at [facility]. Results from pediatric patients should be interpreted in conjunction to the patient's age, height and muscle mass. Sodium 135 135 - 145 mmol/L [facility] Potassium 3.6 3.5 - 5.0 mmol/L [facility] Comment: Please note: ??Patients with WBC >100,000 may have falsely elevated Potassium levels. ??For accurate Potassium quantification in these patients send serum separator tube (gold top) for subsequent determinations. ??Contact the Clinical Chemistry Laboratory if there are any questions. Chloride 90(L) 98 - 107 mmol/L [facility] CO2 Not Perf 22 - 31 mmol/L [facility] Comment:Add-on request. Samp le too old to perform test. Anion Gap Not Calculated 5 - 15 mmol/L [facility] Calcium 8.4(L) 8.5 - 10.5 mg/dL [facility] Estimated GFR >60 >=60 [facility] Comment: This estimated GFR (eGFR) [...] the following links into your internet browser. [email or web address] Blood specimen (specimen) Venous Draw / Unknown 03/18/2016 3:23 AM EST 03/18/2016 3:45 AM EST Narrative Resulting Agency Comment Spec In Lab Iván Chaves MD CHEMISTRY ORDERABLES Performing Organization Address City/[facility] Co de Phone Number [facility] [place] [address] * (ABNORMAL) Differential, Automated (03/18/2016 3:23 AM EST) Neutrophils % 29.9 % [facility] Neutr Abs (ANC) 7.17(H) 1.70 - 6.10 x10(3)/[facility] LAB[facility] Lymphocytes % 64.6 % [facility] Lymphocytes Abs 15.5(H) 0.9 - 3.2 x10(3)/[facility] Monocytes % 4.5 % [facility] Monocyte Abs 1.1(H) 0.3 - 0.9 x10(3)/[facility] Eosinophils % 0.2 % [facility] Eosinophils Abs 0.0 0.0 - 0.4 x10(3)/[facility] Basophils % 0.2 % [facility] Basophils Abs 0.1 0.0 - 0.1 x10(3)/[facility] Immature Gran % 0.60 % [facility] Comment: Immature granulocytes(IG's)percentage and absolute count will include metamyelocytes, myelocytes, and promyelocytes. Blood smears from CBCs yielding IG's will be scanned manually for concordance. If this scan disagrees with the automated IG or if promyelocytes are noted, a manual differential will be performed. Elizabeth Gran Abs 0.14(H) 0.00 - 0.04 x10(3)/[facility] LAB[facility] Blood specimen (specimen) 03/18/2016 3:23 AM EST 03/18/2016 3:42 AM EST Narrative Resulting Agency Comment Spec In Lab Iván Chaves MD HEMATOLOGY ORDERABLE S Performing Organization Address City/[facility]/ZIP Co de Phone Number [facility] [place] [address] * (ABNORMAL) Hemogram (03/18/2016 3:23 AM EST) WBC 24.0(H) 4.0 - 9.5 x10(3)/[facility] LABORAT[facility] RBC 4.19 4.00 - 5.21 x10(6)/[facility] Hemoglobin 12.1 11.7 - 15.5 gm/dL [facility] Hematocrit 35.4(L) 35.7 - 45.8 % [facility] MCV 84.5 82.6 - 94.4 [facility] MCH 28.9 27.1 - 32.0 pg [facility] MCHC 34.2 31.7 - 35.0 gm/dL [facility] Platelets 289 145 - 357 x10(3)/[facility] LAB[facility] RDWSD 39.8 37.0 - 46.0 [facility] RDWCV 13.0 11.5 - 14.1 % [facility] MPV 8.4 7.6 - 12.9 [facility] nRBC % Auto 0.0 % [facility] nRBC Abs Auto 0.000 0.000 - 0.000 x10(3)/[facility] LAB[facility] Blood specimen (specimen) 03/18/2016 3:23 AM EST 03/18/2016 3:42 AM EST Narrative Resulting Agency Comment Spec In Lab Iván Chaves MD HEMATOLOGY ORDERABLE S [facility] [place] [address] * (ABNORMAL) Potassium (03/18/2016 3:23 AM EST) Potassium 3.4(L) 3.5 - 5.0 mmol/L [facility] Comment: Please note: ??Patients with WBC >100,000 may have falsely elevated Potassium levels. ??For accurate Potassium quantification in these patients send serum separator tube (gold top) for subsequent determinations. ??Contact the Clinical Chemistry Laboratory if there are any questions. Blood specimen (specimen) 03/18/2016 3:23 AM EST 03/18/2016 3:42 AM EST Narrative Resulting Agency Comment Spec In Lab Iván Chaves MD CHEMISTRY ORDERABLES [facility] [place] [address] * (ABNORMAL) Basic Metabolic Panel (non-fasting) (03/17/2016 5:15 PM EST) Glucose Lvl 180 65 - 199 mg/dL [facility] Comment:Diabetes: >=200 mg/d L plus symptoms BUN 6(L) 8 - 18 mg/dL [facility] Creatinine 0.59(L) 0.70 - 1.20 mg/dL [facility] Comment: Please note that the pediatric reference intervals supplied above were not validated at [facility]. Results from pediatric patients should be interpreted in conjunction to the patient's age, height and muscle mass. Sodium 136 135 - 145 mmol/L [facility] Potassium 2.8(Criti marco) 3.5 - 5.0 mmol/L [facility] Comment: Called by: sigrid, Read back by: Jose Woodard, Date/Time:03/17/16 18:31. Please note: ??Patients with WBC >100,000 may have falsely elevated Potassium levels. ??For accurate Potassium quantification in these patients send serum separator tube (gold top) for subsequent determinations. ??Contact the Clinical Chemistry Laboratory if there are any questions. Chloride 93(L) 98 - 107 mmol/L [facility] CO2 27 22 - 31 mmol/L [facility] Anion Gap 16(H) 5 - 15 mmol/L [facility] Calcium 8.9 8.5 - 10.5 mg/dL [facility] Estimated GFR >60 >=60 [facility] Comment: This estimated GFR (eGFR) [...] the following links into your internet browser. [email or web address] Blood specimen (specimen) 03/17/2016 5:15 PM EST 03/17/2016 5:25 PM EST Narrative Resulting Agency Comment Spec In Lab Iván Chaves MD CHEMISTRY ORDERABLES Performing Organization Address [facility] Co de Phone Number [facility] [address] * Blood culture (03/17/2016 11:50 AM EST) Blood Culture No growth at 5 days. [facility] Blood specimen (specimen) 03/17/2016 11:50 AM EST 03/17/2016 12:23 PM EST Narrative Resulting Agency Comment Spec In Lab Iván Chaves MD MICROBIOLOGY - BLOOD ORDERABLES Performing Organization Address [facility] Co de Phone Number [facility] [place] [address] * (ABNORMAL) Urinalysis with reflex Culture (03/17/2016 11:11 AM EST) Glucose UA 150(A) Negative mg/dL [facility] Protein UA Negative Negative mg/dL [facility] Bilirubin UA Negative Negative mg/dL [facility] Comment: Clinical correlation required for positive Urine Bilirubin results as false positive may occur with some drugs and drug related products. If a false positive is suspected a serum total bilirubin should be considered if clinically indicated. Urobilinogen UA Normal Normal mg/dL [facility] pH UA 7.0 5.0 - 8.0 [facility] Blood UA Negative Negative mg/dL [facility] Ketones UA Negative Negative mg/dL [facility] Nitrite UA Negative Negative [facility] Leukocytes UA Negative Negative [facility] Appearance UA Clear Clear [facility] Spec [place] UA 1.013 1.002 - 1.030 [facility] Color UA Yellow Yellow [facility] RBC UA 5(H) 0 - 4 /HPF [facility] WBC UA 1 0 - 5 /HPF [facility] Squam Epith UA <1 <=4 /HPF [facility] Culture Reflexed No [facility] Urine specimen obtained by clean catch procedure (specimen) 03/17/2016 11:11 AM EST 03/17/2016 11:21 AM EST Narrative Resulting Agency Comment Spec In Lab Iván Chaves MD URINE ORDERABLES [facility] [place] [address] * ECONOMIC DEVELOPMENT COORDINATOR Shunt Culture (03/17/2016 6:25 AM EST) Central Nervous System Shunt Culture No growth at 10 days. [facility] Gram Stain Cytocentrifuge Gram Stain performed White Blood Cells seen No microorganisms seen. [facility] Specimen of unknown material (specimen) 03/17/2016 6:25 AM EST 03/17/2016 6:31 AM EST Comment:LUMBAR DRAIN Narrative Resulting Agency Comment Spec In Lab Jarrod Quintanilla MD MICROBIOLOGY - GENER AL ORDERABLES Performing Organization Address [facility] Co de Phone Number [facility] [place] [address] * (ABNORMAL) CSF Cell Count (03/17/2016 6:24 AM EST) Tube # Ct CSF 1 [facility] Nucleated CSF CT 5,638(H) 0 - 5 /[facility] Comment: If Nucleated Cell Count equals zero, No Scan or Differential will be performed. If Nucleated Cell Count equals 1-5, Smear is scanned but no results are reported unless abnormalities are seen. If Nucleated Cell Count equals 6 or greater, Differential will be reported. RBC CSF CT 5,469 /[facility] Neutrophil CSF 91 % [facility] Lymphocyte CSF 7 % [facility] Macrophage CSF 2 % [facility] Tot Diff Ct CSF 200 Cells [facility] Cerebrospinal fluid specimen (specimen) 03/17/2016 6:24 AM EST 03/17/2016 6:32 AM EST Narrative Resulting Agency Comment Spec In Lab Iván Chaves MD BODY FLUIDS AND STOO LS ORDERABLES Performing Organization Address [facility] Co de Phone Number [facility] [place] [address] * CSF DESC 1 (03/17/2016 6:24 AM EST) Tube Num CSF #1 1 [facility] Color CSF #1 Yellow Colorless [facility] Appear CSF #1 Cloudy Clear [facility] Tot Vol CSF #1 3.0 mL [facility] Cerebrospinal fluid specimen (specimen) 03/17/2016 6:24 AM EST 03/17/2016 6:32 AM EST Narrative Resulting Agency Comment Spec In Lab Iván Chaves MD BODY FLUIDS AND STOO LS ORDERABLES Performing Organization Address City/[facility]/ZIP Co de Phone Number [facility] [place] [address] * Glucose Level CSF (03/17/2016 6:24 AM EST) Glucose, CSF 30 mg/dL [facility] Comment:CSF at equilibrium e quals approximately 60-80% of plasma glucose. Cerebrospinal fluid specimen (specimen) 03/17/2016 6:24 AM EST 03/17/2016 6:32 AM EST Narrative Resulting Agency Comment Spec In Lab Iván Chaves MD BODY FLUIDS AND STOO LS ORDERABLES Performing Organization Address City/[facility]/ZIP Co de Phone Number [facility] [place] [address] * (ABNORMAL) Protein Level CSF (03/17/2016 6:24 AM EST) T Protein, CSF 252(H) 15 - 45 mg/dL [facility] Comment: Result rechecked. If CSF red cells are due to traumatic tap, the measured CSF Total Protein will be increased by approximately 1 mg/dL for every 1000 RBC/UL, assuming normal serum protein, hematocrit and peripheral RBC Xanthochromia Marked [facility] Cerebrospinal fluid specimen (specimen) 03/17/2016 6:24 AM EST 03/17/2016 6:32 AM EST Narrative Resulting Agency Comment Spec In Lab Iván Chaves MD BODY FLUIDS AND STOO LS ORDERABLES Performing Organization Address City/[facility]/ZIP Co de Phone Number [facility] [place] [address] * Blood culture (03/17/2016 6:00 AM EST) Blood Culture No growth at 5 days. [facility] Blood specimen (specimen) ANTECUBITAL REGION STRUCTURE / Unknown 03/17/2016 6:00 AM EST 03/17/2016 6:16 AM EST Narrative Resulting Agency Comment Spec In Lab Iván Chaves MD MICROBIOLOGY - BLOOD ORDERABLES Performing Organization Address City/[facility]/ZIP Co de Phone Number [facility] [place] [address] * Scan, Peripheral Blood (03/17/2016 5:30 AM EST) Plat Estimate Normal [facility] RBC Morphology Abnormal [facility] Ovalocytes 1-5 /HPF [facility] Smudge Cells Present [facility] Giant Platelets Less than 1 /HPF [facility] Blood specimen (specimen) 03/17/2016 5:30 AM EST 03/17/2016 5:36 AM EST Narrative Resulting Agency Comment Spec In Lab Iván Chaves MD HEMATOLOGY ORDERABLE S Performing Organization Address [facility] Co de Phone Number [facility] [place] [address] * (ABNORMAL) Differential, Automated (03/17/2016 5:30 AM EST) Neutrophils % 44.8 % [facility] Neutr Abs (ANC) 10.63(H) 1.70 - 6.10 x10(3)/mc L [facility] Lymphocytes % 50.0 % [facility] Lymphocytes Abs 11.8(H) 0.9 - 3.2 x10(3)/ L [facility] Monocytes % 4.2 % [facility] Monocyte Abs 1.0(H) 0.3 - 0.9 x10(3)/mc L [facility] Eosinophils % 0.1 % [facility] Eosinophils Abs 0.0 0.0 - 0.4 x10(3)/mc L [facility] Basophils % 0.1 % [facility] Basophils Abs 0.0 0.0 - 0.1 x10(3)/mc L [facility] Immature Gran % 0.80 % [facility] Comment: Immature granulocytes(IG's)percentage and absolute count will include metamyelocytes, myelocytes, and promyelocytes. Blood smears from CBCs yielding IG's will be scanned manually for concordance. If this scan disagrees with the automated IG or if promyelocytes are noted, a manual differential will be performed. Elizabeth Gran Abs 0.18(H) 0.00 - 0.04 x10(3)/mc L [facility] Blood specimen (specimen) 03/17/2016 5:30 AM EST 03/17/2016 5:36 AM EST Narrative Resulting Agency Comment Spec In Lab Iván Chaves MD HEMATOLOGY ORDERABLE S Performing Organization Address City/State/[facility] Co de Phone Number [facility] [place] [address] * (ABNORMAL) Hemogram (03/17/2016 5:30 AM EST) WBC 23.7(H) 4.0 - 9.5 x10(3)/[facility] RBC 3.77(L) 4.00 - 5.21 x10(6)/[facility] Hemoglobin 11.1(L) 11.7 - 15.5 gm/dL [facility] Hematocrit 32.3(L) 35.7 - 45.8 % [facility] MCV 85.7 82.6 - 94.4 fL [facility] MCH 29.4 27.1 - 32.0 pg [facility] MCHC 34.4 31.7 - 35.0 gm/dL [facility] Platelets 249 145 - 357 x10(3)/[facility] LABORATORY RDWSD 40.3 37.0 - 46.0 [facility] RDWCV 12.9 11.5 - 14.1 % [facility] MPV 8.4 7.6 - 12.9 fL [facility] nRBC % Auto 0.0 % [facility] nRBC Abs Auto 0.000 0.000 - 0.000 x10(3)/mcL [facility] Blood specimen (specimen) 03/17/2016 5:30 AM EST 03/17/2016 5:36 AM EST Narrative Resulting Agency Comment Spec In Lab Iván Chaves MD HEMATOLOGY ORDERABLE S [facility] [place] [address] * (ABNORMAL) Basic Metabolic Panel (non-fasting) (03/17/2016 5:30 AM EST) Glucose Lvl 144 65 - 199 mg/dL [facility] Comment:Diabetes: >=200 mg/d L plus symptoms BUN 8 8 - 18 mg/dL [facility] Creatinine 0.53(L) 0.70 - 1.20 mg/dL [facility] Comment: Please note that the pediatric reference intervals supplied above were not validated at [facility]. Results from pediatric patients should be interpreted in conjunction to the patient's age, height and muscle mass. Sodium 136 135 - 145 mmol/L [facility] Potassium 3.6 3.5 - 5.0 mmol/L [facility] Comment: Please note: ??Patients with WBC >100,000 may have falsely elevated Potassium levels. ??For accurate Potassium quantification in these patients send serum separator tube (gold top) for subsequent determinations. ??Contact the Clinical Chemistry Laboratory if there are any questions. Chloride 97(L) 98 - 107 mmol/L [facility] CO2 28 22 - 31 mmol/L [facility] Anion Gap 11 5 - 15 mmol/L [facility] Calcium 8.2(L) 8.5 - 10.5 mg/dL [facility] Estimated GFR >60 >=60 [facility] Comment: This estimated GFR (eGFR) value [...] the following links into your internet browser. [email or web address] Blood specimen (specimen) 03/17/2016 5:30 AM EST 03/17/2016 5:36 AM EST Narrative Resulting Agency Comment Spec In Lab Iván Chaves MD CHEMISTRY ORDERABLES Performing Organization Address [facility] Co de Phone Number [facility] [place] [address] * (ABNORMAL) CRP, acute inflammation (03/17/2016 5:30 AM EST) CRP 127.7(H) <=4.9 mg/L [facility] Blood specimen (specimen) 03/17/2016 5:30 AM EST 03/17/2016 5:36 AM EST Narrative Resulting Agency Comment Spec In Lab Iván Chaves MD CHEMISTRY ORDERABLES Performing Organization Address [facility] de Phone Number [facility] [place] [address] * Magnesium (03/16/2016 11:24 PM EST) Magnesium 0.80 0.69 - 1.07 mmol/L [facility] Blood specimen (specimen) Venous Draw / Unknown 03/16/2016 11:24 PM EST 03/16/2016 11:28 PM EST Narrative Resulting Agency Comment Spec In Lab Iván Chaves MD CHEMISTRY ORDERABLES Performing Organization Address [facility] Co de Phone Number [facility] [place] [address] * (ABNORMAL) Electrolytes panel (03/16/2016 11:24 PM EST) Sodium 137 135 - 145 mmol/L [facility] Potassium 3.0(Criti marco) 3.5 - 5.0 mmol/L [facility] Comment: Called by: NETTA, Read back by: Dl Hsieh, Date/Time:03/17/16 00:06. Please note: ??Patients with WBC >100,000 may have falsely elevated Potassium levels. ??For accurate Potassium quantification in these patients send serum separator tube (gold top) for subsequent determinations. ??Contact the Clinical Chemistry Laboratory if there are any questions. Chloride 96(L) 98 - 107 mmol/L [facility] CO2 28 22 - 31 mmol/L [facility] Anion Gap 13 5 - 15 mmol/L [facility] Blood specimen (specimen) 03/16/2016 11:24 PM EST 03/16/2016 11:28 PM EST Narrative Resulting Agency Comment Spec In Lab Iván Chaves MD CHEMISTRY ORDERABLES Performing Organization Address City/State/[facility] Co de Phone Number [facility] [place] [address] * (ABNORMAL) BLOOD GAS 2 ARTERIAL (03/16/2016 7:10 PM EST) pH Art 7.52(H) 7.35 - 7.45 [facility] pCO2 Art 35 35 - 45 mmHg [facility] pO2 Art 51(L) 85 - 104 mmHg [facility] HCO3 Art 27.5(H) 20.0 - 26.0 mmol/L [facility] BE Art 4.7(H) -3.0 - 3.0 mmol/L [facility] Hgb Blood Gas 12.5 11.7 - 15.5 gm/dL [facility] O2HB Art 89.4(L) 94.0 - 97.0 % [facility] COHB Art 0.6 % [facility] Comment: Nonsmokers: 0.5-1.5% COHB Smokers: Variable, but usually less than 10% Toxic: 20-30% COHB Lethal: Greater than 60% COHB METHB Art 0.5 <=1.5 % [facility] Na Whole Blood 135 135 - 145 mmol/L [facility] K Whole Blood 2.5(Critic al) 3.5 - 5.0 mmol/L [facility] Comment: Noted by medical or surgical instrument maker. Please note: Patients with WBC >100,000 may have falsely elevated Potassium levels. Contact the Clinical Chemistry Laboratory if there are any questions. ICa Whole Blood 1.08(L) 1.15 - 1.33 mmol/L [facility] Comment: Note: ??Total bilirubin higher than 20 mg/dL may lead to falsely low ionized calcium. CL Whole Blood 99 98 - 107 mmol/L [facility] Gluc Whole Bld 179 65 - 199 mg/dL [facility] Comment:Diabetes: >=200 mg/d L plus symptoms. Lactate WB 1.1 0.5 - 2.2 mmol/L [facility] FIO2 Art 21 % [facility] PF Ratio Art 243 [facility] Blood specimen (specimen) 03/16/2016 7:10 PM EST 03/16/2016 7:10 PM EST Iván Chaves MD CHEMISTRY ORDERABLES [facility] [place] [address] * Vancomycin, trough (03/16/2016 4:33 PM EST) Vanc Trough 2.9 mg/L [facility] Comment: Therapeutic range for complicated infections such as bacteremia, endocarditis, osteomyelitis, meningitis, and hospital-acquired pneumonia caused by S. aureus: 15-20 mg/L Therapeutic range for other indications: 10-15 mg/L Toxic: >25 mg/L Reference: Vancomycin Therapeutic Monitoring: Review and Recommendations from the ASHP, IDSA and SIDP Task Force. ??Am J [employer]-Syst [employer]. 2009; 66:82-98 Blood specimen (specimen) 03/16/2016 4:33 PM EST 03/16/2016 4:38 PM EST Narrative Resulting Agency Comment Spec In Lab Iván Chaves MD CHEMISTRY ORDERABLES Performing Organization Address [facility] de Phone Number [facility] [place] [address] * (ABNORMAL) Electrolytes panel (03/16/2016 4:33 PM EST) Sodium 139 135 - 145 mmol/L [facility] Potassium 2.8(Criti marco) 3.5 - 5.0 mmol/L [facility] Comment: Called by: sigrid, Read back by: Kirsten Schilling, Date/Time:03/16/16 18:02. Please note: ??Patients with WBC >100,000 may have falsely elevated Potassium levels. ??For accurate Potassium quantification in these patients send serum separator tube (gold top) for subsequent determinations. ??Contact the Clinical Chemistry Laboratory if there are any questions. Chloride 97(L) 98 - 107 mmol/L [facility] CO2 25 22 - 31 mmol/L [facility] Anion Gap 17(H) 5 - 15 mmol/L [facility] Blood specimen (specimen) 03/16/2016 4:33 PM EST 03/16/2016 4:38 PM EST Narrative Resulting Agency Comment Spec In Lab Iván Chaves MD CHEMISTRY ORDERABLES Performing Organization Address [facility] Co de Phone Number [facility] [place] [address] * (ABNORMAL) Electrolytes panel (03/16/2016 11:05 AM EST) Sodium 140 135 - 145 mmol/L [facility] Potassium 2.9(Criti marco) 3.5 - 5.0 mmol/L [facility] Comment: Called by: FARHANA, Read back by: Kirsten Schilling, Date/Time:03/16/16 12:07. Results rechecked Please note: ??Patients with WBC >100,000 may have falsely elevated Potassium levels. ??For accurate Potassium quantification in these patients send serum separator tube (gold top) for subsequent determinations. ??Contact the Clinical Chemistry Laboratory if there are any questions. Chloride 101 98 - 107 mmol/L [facility] CO2 25 22 - 31 mmol/L [facility] Anion Gap 14 5 - 15 mmol/L [facility] Blood specimen (specimen) 03/16/2016 11:05 AM EST 03/16/2016 11:17 AM EST Narrative Resulting Agency Comment Spec In Lab Iván Chaves MD CHEMISTRY ORDERABLES Performing Organization Address [facility] Co de Phone Number [facility] [address] * Magnesium (03/16/2016 5:27 AM EST) Magnesium 0.99 0.69 - 1.07 mmol/L [facility] Blood specimen (specimen) Venous Draw / Unknown 03/16/2016 5:27 AM EST 03/16/2016 5:40 AM EST Narrative Resulting Agency Comment Spec In Lab Iván Chaves MD CHEMISTRY ORDERABLES Performing Organization Address [facility] Co de Phone Number [facility] [place] [address] * (ABNORMAL) Electrolytes panel (03/16/2016 5:27 AM EST) Sodium 143 135 - 145 mmol/L [facility] Potassium 3.1(L) 3.5 - 5.0 mmol/L [facility] Comment: Please note: ??Patients with WBC >100,000 may have falsely elevated Potassium levels. ??For accurate Potassium quantification in these patients send serum separator tube (gold top) for subsequent determinations. ??Contact the Clinical Chemistry Laboratory if there are any questions. Chloride 101 98 - 107 mmol/L [facility] CO2 26 22 - 31 mmol/L [facility] Anion Gap 16(H) 5 - 15 mmol/L [facility] Blood specimen (specimen) 03/16/2016 5:27 AM EST 03/16/2016 5:40 AM EST Narrative Resulting Agency Comment Spec In Lab Iván Chaves MD CHEMISTRY ORDERABLES Performing Organization Address [facility] de Phone Number [facility] [place] [address] * (ABNORMAL) Electrolytes panel (03/15/2016 10:55 PM EST) Sodium 138 135 - 145 mmol/L [facility] Potassium 2.7(Criti marco) 3.5 - 5.0 mmol/L [facility] Comment: Result rechecked. Called by: scarlett, Read back by: kalen hsieh, Date/Time:03/15/16 23:23. Please note: ??Patients with WBC >100,000 may have falsely elevated Potassium levels. ??For accurate Potassium quantification in these patients send serum separator tube (gold top) for subsequent determinations. ??Contact the Clinical Chemistry Laboratory if there are any questions. Chloride 98 98 - 107 mmol/L [facility] CO2 26 22 - 31 mmol/L [facility] Anion Gap 14 5 - 15 mmol/L [facility] Blood specimen (specimen) 03/15/2016 10:55 PM EST 03/15/2016 11:00 PM EST Narrative Resulting Agency Comment Spec In Lab Iván Chaves MD CHEMISTRY ORDERABLES Performing Organization Address [facility] de Phone Number [facility] [place] [address] * (ABNORMAL) Electrolytes panel (03/15/2016 4:55 PM EST) Sodium 139 135 - 145 mmol/L [facility] Potassium 3.2(L) 3.5 - 5.0 mmol/L [facility] Comment: Please note: ??Patients with WBC >100,000 may have falsely elevated Potassium levels. ??For accurate Potassium quantification in these patients send serum separator tube (gold top) for subsequent determinations. ??Contact the Clinical Chemistry Laboratory if there are any questions. Chloride 101 98 - 107 mmol/L [facility] CO2 25 22 - 31 mmol/L [facility] Anion Gap 13 5 - 15 mmol/L [facility] Blood specimen (specimen) 03/15/2016 4:55 PM EST 03/15/2016 5:08 PM EST Narrative Resulting Agency Comment Spec In Lab Iván Chaves MD CHEMISTRY ORDERABLES Performing Organization Address City/[facility]/ZIP Co de Phone Number [facility] [place] [address] * (ABNORMAL) CRP, acute inflammation (03/15/2016 10:00 AM EST) CRP 206.6(H) <=4.9 mg/L [facility] Blood specimen (specimen) Venous Draw / Unknown 03/15/2016 10:00 AM EST 03/15/2016 10:14 AM EST Narrative Resulting Agency Comment Spec In Lab Iván Chaves MD CHEMISTRY ORDERABLES Performing Organization Address City/[facility]/ZIP Co de Phone Number [facility] [place] [address] * Magnesium (03/15/2016 10:00 AM EST) Magnesium 0.70 0.69 - 1.07 mmol/L [facility] Blood specimen (specimen) Venous Draw / Unknown 03/15/2016 10:00 AM EST 03/15/2016 10:14 AM EST Narrative Resulting Agency Comment Spec In Lab Iván Chaves MD CHEMISTRY ORDERABLES Performing Organization Address City/[facility]/ZIP Co de Phone Number [facility] [place] [address] * (ABNORMAL) Electrolytes panel (03/15/2016 10:00 AM EST) Sodium 139 135 - 145 mmol/L [facility] Potassium 3.2(L) 3.5 - 5.0 mmol/L [facility] Comment: Please note: ??Patients with WBC >100,000 may have falsely elevated Potassium levels. ??For accurate Potassium quantification in these patients send serum separator tube (gold top) for subsequent determinations. ??Contact the Clinical Chemistry Laboratory if there are any questions. Chloride 101 98 - 107 mmol/L [facility] CO2 24 22 - 31 mmol/L [facility] Anion Gap 14 5 - 15 mmol/L [facility] Blood specimen (specimen) 03/15/2016 10:00 AM EST 03/15/2016 10:10 AM EST Narrative Resulting Agency Comment Spec In Lab Iván Chaves MD CHEMISTRY ORDERABLES Performing Organization Address [facility]/ZIP Co de Phone Number [facility] [place] [address] * Albumin Level (03/15/2016 3:15 AM EST) Pathologist [facility] Albumin 3.4 3.2 - 5.2 gm/dL [facility] Blood specimen (specimen) Venous Draw / Unknown 03/15/2016 3:15 AM EST 03/15/2016 3:24 AM EST Narrative Resulting Agency Comment Spec In Lab Shiva Sewell MD CHEMISTRY ORDERABL ES Performing Organization Address [facility]/ZIP Co de Phone Number [facility] [place] [address] * Scan, Peripheral Blood (03/15/2016 3:15 AM EST) Pathologist [facility] Plat Estimate Normal [facility] RBC Morphology Normal [facility] Smudge Cells Present [facility] Blood specimen (specimen) 03/15/2016 3:15 AM EST 03/15/2016 3:22 AM EST Narrative Resulting Agency Comment Spec In Lab Shiva Sewell MD HEMATOLOGY ORDERAB LES Performing Organization Address City/[facility]/ZIP Co de Phone Number [facility] [place] [address] * ABORH Recheck Status (03/15/2016 3:15 AM EST) ABORH Recheck Order Order Placed [facility] ABORH Type Recheck Complete [facility] Blood specimen (specimen) 03/15/2016 3:15 AM EST 03/15/2016 3:29 AM EST Narrative Resulting Agency Comment Spec In Lab Shiva Sewell MD BLOOD BANK LAB ORD ERABLES Performing Organization Address [facility] Co de Phone Number [facility] [place] [address] * Antibody screen (03/15/2016 3:15 AM EST) Ab Screen Interp Negative [facility] Expires at [id number] on: 03/18/2016 [facility] Blood specimen (specimen) 03/15/2016 3:15 AM EST 03/15/2016 3:29 AM EST Narrative Resulting Agency Comment Spec In Lab Shiva Sewell MD BLOOD BANK LAB ORD ERABLES Performing Organization Address City/[facility]/ZIP Co de Phone Number [facility] [place] [address] * ABO/Rh Typing (03/15/2016 3:15 AM EST) ABORH Type O Pos [facility] Blood specimen (specimen) 03/15/2016 3:15 AM EST 03/15/2016 3:29 AM EST Narrative Resulting Agency Comment Spec In Lab Shiva Sewell MD BLOOD BANK LAB ORD ERABLES [facility] [place] [address] * (ABNORMAL) Differential, Automated (03/15/2016 3:15 AM EST) Neutrophils % 56.9 % [facility] Neutr Abs (ANC) 18.11(H) 1.70 - 6.10 x10(3)/[facility] Lymphocytes % 36.0 % [facility] Lymphocytes Abs 11.4(H) 0.9 - 3.2 x10(3)/[facility] Monocytes % 5.9 % [facility] Monocyte Abs 1.9(H) 0.3 - 0.9 x10(3)/[facility] Eosinophils % 0.0 % [facility] Eosinophils Abs 0.0 0.0 - 0.4 x10(3)/[facility] Basophils % 0.1 % [facility] Basophils Abs 0.0 0.0 - 0.1 x10(3)/[facility] Immature Gran % 1.10 % [facility] Comment: Immature granulocytes(IG's)percentage and absolute count will include metamyelocytes, myelocytes, and promyelocytes. Blood smears from CBCs yielding IG's will be scanned manually for concordance. If this scan disagrees with the automated IG or if promyelocytes are noted, a manual differential will be performed. Elizabeth Gran Abs 0.34(H) 0.00 - 0.04 x10(3)/[facility] Blood specimen (specimen) 03/15/2016 3:15 AM EST 03/15/2016 3:22 AM EST Narrative Resulting Agency Comment Spec In Lab Shiva Sewell MD HEMATOLOGY ORDERAB LES [facility] [place] [address] * (ABNORMAL) Hemogram (03/15/2016 3:15 AM EST) WBC 31.8(Criti marco) 4.0 - 9.5 x10(3)/ L [facility] Comment: This result has been called to NOT CALLED by Anjali Delgado on 03 15 2016 at 0347, and has not been read back. previous critical RBC 3.66(L) 4.00 - 5.21 x10(6)/ L [facility] Hemoglobin 11.0(L) 11.7 - 15.5 gm/dL [facility] Hematocrit 31.1(L) 35.7 - 45.8 % [facility] MCV 85.0 82.6 - 94.4 fL [facility] MCH 30.1 27.1 - 32.0 pg [facility] MCHC 35.4(H) 31.7 - 35.0 gm/dL [facility] Platelets 213 145 - 357 x10(3)/[facility] RDWSD 39.2 37.0 - 46.0 [facility] RDWCV 12.8 11.5 - 14.1 % [facility] MPV 8.4 7.6 - 12.9 [facility] nRBC % Auto 0.0 % [facility] nRBC Abs Auto 0.000 0.000 - 0.000 x10(3)/[facility] Blood specimen (specimen) 03/15/2016 3:15 AM EST 03/15/2016 3:22 AM EST Narrative Resulting Agency Comment Spec In Lab Shiva Sewell MD HEMATOLOGY ORDERAB LES [facility] [place] [address] * (ABNORMAL) Basic Metabolic Panel (non-fasting) (03/15/2016 3:15 AM EST) Glucose Lvl 167 65 - 199 mg/dL [facility] Comment:Diabetes: >=200 mg/d L plus symptoms BUN 8 8 - 18 mg/dL [facility] Creatinine 0.47(L) 0.70 - 1.20 mg/dL [facility] Comment: Please note that the pediatric reference intervals supplied above were not validated at [facility]. Results from pediatric patients should be interpreted in conjunction to the patient's age, height and muscle mass. Sodium 132(L) 135 - 145 mmol/L [facility] Potassium 2.6(Criti marco) 3.5 - 5.0 mmol/L [facility] Comment: Called by: domi, Read back by: Pedro Pozo, Date/Time:03/15/16 03:59. Please note: ??Patients with WBC >100,000 may have falsely elevated Potassium levels. ??For accurate Potassium quantification in these patients send serum separator tube (gold top) for subsequent determinations. ??Contact the Clinical Chemistry Laboratory if there are any questions. Chloride 94(L) 98 - 107 mmol/L [facility] CO2 21(L) 22 - 31 mmol/L [facility] Anion Gap 17(H) 5 - 15 mmol/L [facility] Calcium 6.5(Criti marco) 8.5 - 10.5 mg/dL [facility] Comment:Called by: domi, Read back by: Pedro Pozo, Date/Time:03/15/16 03:59. Estimated GFR >60 >=60 [facility] Comment: This estimated GFR (eGFR) [...] the following links into your internet browser. [email or web address] Blood specimen (specimen) 03/15/2016 3:15 AM EST 03/15/2016 3:22 AM EST Narrative Resulting Agency Comment Spec In Lab Iván Chaves MD CHEMISTRY ORDERABLES Performing Organization Address City/[facility]/[place] [address] * (ABNORMAL) Urinalysis with reflex Culture (03/15/2016 2:49 AM EST) Glucose UA >=500(Criti marco) Negative mg/dL [facility] Comment: Urinalysis result NOT critical without a combination of Glucose greater than or equal to 500mg/dl AND Ketones greater than or equal to 80mg/dl. Protein UA 30(A) Negative mg/dL [facility] Bilirubin UA Negative Negative mg/dL [facility] Comment: Clinical correlation required for positive Urine Bilirubin results as false positive may occur with some drugs and drug related products. If a false positive is suspected a serum total bilirubin should be considered if clinically indicated. Urobilinogen UA 2.0(A) Normal mg/dL [facility] pH UA 6.0 5.0 - 8.0 [facility] Blood UA Large(A) Negative mg/dL [facility] Ketones UA Negative Negative mg/dL [facility] Nitrite UA Negative Negative [facility] Leukocytes UA Negative Negative [facility] Appearance UA Clear Clear [facility] Spec [place] UA 1.020 1.002 - 1.030 [facility] Color UA Yellow Yellow [facility] RBC UA 78(H) 0 - 4 /HPF [facility] WBC UA 7(H) 0 - 5 /HPF [facility] Culture Reflexed No [facility] Urine specimen (specimen) Urine / Unknown 03/15/2016 2:49 AM EST 03/15/2016 2:49 AM EST Narrative Resulting Agency Comment Spec In Lab Shiva Sewell MD URINE ORDERABLES [facility] [place] [address] * Blood culture (03/15/2016 1:06 AM EST) Blood Culture No growth at 5 days. [facility] Blood specimen (specimen) STRUCTURE OF RIGHT UPPER LIMB / Unknown 03/15/2016 1:06 AM EST 03/15/2016 1:33 AM EST Narrative Resulting Agency Comment Spec In Lab Shiva Sewell MD MICROBIOLOGY - BLO OD ORDERABLES Performing Organization Address City/[facility]/ZIP Co de Phone Number [facility] [place] [address] * (ABNORMAL) CSF Cell Count (03/15/2016 1:00 AM EST) Tube # Ct CSF 1 [facility] Nucleated CSF CT 4,448(H) 0 - 5 /[facility] Comment: If Nucleated Cell Count equals zero, No Scan or Differential will be performed. If Nucleated Cell Count equals 1-5, Smear is scanned but no results are reported unless abnormalities are seen. If Nucleated Cell Count equals 6 or greater, Differential will be reported. RBC CSF CT 70 /[facility] Neutrophil CSF 83 % [facility] Macrophage CSF 17 % [facility] Comment:Rare RBC phagocytosi s. Tot Diff Ct CSF 200 Cells [facility] Cerebrospinal fluid specimen (specimen) 03/15/2016 1:00 AM EST 03/15/2016 1:21 AM EST Narrative Resulting Agency Comment Spec In Lab Shiva Sewell MD BODY FLUIDS AND ST OOLS ORDERABLES [facility] [place] [address] * CSF DESC 1 (03/15/2016 1:00 AM EST) Tube Num CSF #1 1 [facility] Color CSF #1 Yellow Colorless [facility] Appear CSF #1 Cloudy Clear [facility] Tot Vol CSF #1 5.0 mL [facility] Cerebrospinal fluid specimen (specimen) 03/15/2016 1:00 AM EST 03/15/2016 1:21 AM EST Narrative Resulting Agency Comment Spec In Lab Shiva Sewell MD BODY FLUIDS AND ST OOLS ORDERABLES Performing Organization Address [facility] Co de Phone Number [facility] [place] [address] * Fungus culture Cerebrospinal Fluid (03/15/2016 1:00 AM EST) Fungus Culture No Fungus isolated [facility] Cerebrospinal fluid specimen (specimen) 03/15/2016 1:00 AM EST 03/15/2016 1:33 AM EST Narrative Resulting Agency Comment Spec In Lab Shiva Sewell MD MICROBIOLOGY - GEN ERAL ORDERABLES Performing Organization Address [facility] Co de Phone Number [facility] [place] [address] * Glucose Level CSF (03/15/2016 1:00 AM EST) Glucose, CSF 37 mg/dL [facility] Comment:CSF at equilibrium e quals approximately 60-80% of plasma glucose. Cerebrospinal fluid specimen (specimen) 03/15/2016 1:00 AM EST 03/15/2016 1:21 AM EST Narrative Resulting Agency Comment Spec In Lab Shiva Sewell MD BODY FLUIDS AND ST OOLS ORDERABLES Performing Organization Address [facility] Co de Phone Number [facility] [place] [address] * (ABNORMAL) Protein Level CSF (03/15/2016 1:00 AM EST) T Protein, CSF 855(H) 15 - 45 mg/dL [facility] Comment: Corrected report. Called by: [facility], Read back by: Anali Shipley, Date/Time:03/15/16 02:57. Corrected from 72 mg/dL [HI] on 03/15/16 02:58 by Giselle Estrellaochromroxane Marked [facility] Cerebrospinal fluid specimen (specimen) 03/15/2016 1:00 AM EST 03/15/2016 1:21 AM EST Narrative Resulting Agency Comment Spec In Lab Shiva Sewell MD BODY FLUIDS AND ST OOLS ORDERABLES Performing Organization Address City/[facility]/ZIP Co de Phone Number [facility] [place] [address] * Miscellaneous Lab request (03/15/2016 1:00 AM EST) Pathologist [facility] Result Request received in lab. [facility] Specimen of unknown material (specimen) 03/15/2016 1:00 AM EST 03/15/2016 1:29 AM EST Narrative Resulting Agency Comment Spec In Lab Shiva Sewell MD HEMATOLOGY ORDERAB LES Performing Organization Address [facility] Co de Phone Number [facility] [place] [address] * CSF Culture (03/15/2016 12:30 AM EST) [facility] Nervous System Culture No growth [facility] Reviewed Stain Cytocentrifuge Gram Stain performed White Blood Cells seen No microorganisms seen. [facility] Gram Stain No microorganisms seen. White Blood Cells seen [facility] Cerebrospinal fluid specimen (specimen) 03/15/2016 12:30 AM EST 03/15/2016 1:33 AM EST Narrative Resulting Agency Comment Spec In Lab Shiva Sewell MD MICROBIOLOGY - GEN ERAL ORDERABLES Performing Organization Address City/[facility]/ZIP Co de Phone Number [facility] [place] [address] * MRI Brain With/WO Contrast (GENERIC) (03/14/2016 11:45 PM EST) Anatomical Region Laterality Modality Head Magnetic Resonan ce Impressions 03/16/2016 8:17 AM EST 1. ??Mild leptomeningeal enhancement about the posterior fossa. Differential diagnosis includes postoperative inflammatory changes and meningitis. No evidence of intracranial abscess. 2. ??Persistent pneumocephalus which may be postoperative but can be seen in CSF leak. I have personally reviewed the image(s) and the residents interpretation and agree with the findings, Pierre Kwon at 03/16/2016 8:17 AM Narrative 03/16/2016 8:17 AM EST EXAMINATION: MRI BRAIN WWO CONTRAST CLINICAL HISTORY: s/p R acoustic resection, presenting wtih neck stiffness, febrile, elevated WBC, concern for post-op infection. TECHNIQUE: MR of the brain with and without intravenous contrast. Total contrast administered 60 cc Gadavist. COMPARISON: CT head 03/14/2016. MR brain 09/30/2015. FINDINGS: Postsurgical changes from RIGHT IAC/CP angle mass resection are noted, including small subdural collections. Fat graft material is seen at the IAC. No intracranial hemorrhage, mass or mass effect. There is mild enhancement about the surface of the brainstem and cerebellum. No focus of restricted diffusion. Scattered foci of susceptibility artifact likely due to pneumocephalus better seen on prior CT. Unchanged punctate focus of FLAIR hyperintensity within the white matter, nonspecific finding, most commonly due to small vessel ischemic changes. The ventricles and basal cisterns are within normal limits. The cerebral vessels are within normal limits. No bone marrow signal abnormalities. Procedure Note Pierre Kwon MD - 03/16/2016 EXAMINATION: MRI BRAIN WWO CONTRAST CLINICAL HISTORY: s/p R acoustic resection, presenting wtih neckstiffness, febrile, elevated WBC, concern for post-op infection. TECHNIQUE: MR of the brain with and without intravenous contrast. Totalcontrast administered 60 cc Gadavist. COMPARISON: CT head 03/14/2016. MR brain 09/30/2015. FINDINGS: Postsurgical changes from RIGHT IAC/CP angle mass resection are noted,including small subdural collections. Fat graft material is seen at the IAC. No intracranial hemorrhage, mass or mass effect. There is mild enhancementabout the surface of the brainstem and cerebellum. No focus of restricteddiffusion. Scattered foci of susceptibility artifact likely due to pneumocephalusbetter seen on prior CT. Unchanged punctate focus of FLAIR hyperintensity withinthe white matter, nonspecific finding, most commonly due to small vesselischemic changes. The ventricles and basal cisterns are within normal limits. The cerebral vessels are within normal limits. No bone marrow signalabnormalities. IMPRESSION 1. Mild leptomeningeal enhancement about the posterior fossa.Differential diagnosis includes postoperative inflammatory changes and meningitis. No evidence of intracranial abscess. 2. Persistent pneumocephalus which may be postoperative but can be seenin CSF leak. I have personally reviewed the image(s) and the residents interpretationand agree with the findings, Pierre Kwon at 03/16/2016 8:17 AM Shiva Sewell MD IMG MRI ORDERABLES * XR Chest PA & Lateral (Generic) (03/14/2016 10:51 PM EST) Anatomical Region Laterality Modality Chest N/A Digital Radiogra phy Impressions 03/14/2016 11:18 PM EST No acute cardiopulmonary abnormalities. I have personally reviewed the image(s) and the residents interpretation and agree with the findings, EDDIE VILLA at 03/14/2016 11:18 PM Narrative 03/14/2016 11:18 PM EST EXAMINATION: XR CHEST PA AND LATERAL (GENERIC) CLINICAL HISTORY: sepsis protocol TECHNIQUE: AP and lateral chest COMPARISON: None FINDINGS: Streaky opacity at the RIGHT mid lung zone lung base consistent with atelectasis. No focal consolidations. No pneumothorax or pleural effusions. The cardiomediastinal silhouette and pulmonary vascular markings are within normal limits. No acute fractures. Procedure Note Eddie Villa MD - 03/14/2016 EXAMINATION: XR CHEST PA AND LATERAL (GENERIC) CLINICAL HISTORY: sepsis protocol TECHNIQUE: AP and lateral chest COMPARISON: None FINDINGS: Streaky opacity at the RIGHT mid lung zone lung base consistent with atelectasis. No focal consolidations. No pneumothorax or pleuraleffusions. The cardiomediastinal silhouette and pulmonary vascular markings are withinnormal limits. No acute fractures. IMPRESSION No acute cardiopulmonary abnormalities. I have personally reviewed the image(s) and the residents interpretationand agree with the findings, EDDIE VILLA at 03/14/2016 11:18 PM Shiva Sewell MD IMG DX ORDERABLES * (ABNORMAL) L-Lactate2 Whole Blood (03/14/2016 10:41 PM EST) Lactate WB 2.6(H) 0.5 - 2.2 mmol/L [facility] Blood specimen (specimen) 03/14/2016 10:41 PM EST 03/14/2016 10:41 PM EST Shiva Sewell MD CHEMISTRY ORDERABL ES Performing Organization Address [facility]/ZIP Co de Phone Number [facility] [place] [address] * Scan, Peripheral Blood (03/14/2016 10:35 PM EST) Plat Estimate Normal [facility] RBC Morphology Abnormal [facility] Ovalocytes 1-5 /HPF [facility] Smudge Cells Present [facility] Blood specimen (specimen) 03/14/2016 10:35 PM EST 03/14/2016 10:46 PM EST Narrative Resulting Agency Comment Spec In Lab Iván Chaves MD HEMATOLOGY ORDERABLE S Performing Organization Address City/[facility]/ZIP Co de Phone Number [facility] [place] [address] * Gold Tube HOLD (03/14/2016 10:35 PM EST) Gold Hold Sample in lab. [facility] Blood specimen (specimen) Venous Draw / Unknown 03/14/2016 10:35 PM EST 03/14/2016 10:46 PM EST Iván Chaves MD CHEMISTRY ORDERABLES Performing Organization Address City/[facility]/ZIP Co de Phone Number [facility] [place] [address] * (ABNORMAL) Differential, Automated (03/14/2016 10:35 PM EST) Neutrophils % 51.5 % [facility] Neutr Abs (ANC) 25.44(H) 1.70 - 6.10 x10(3)/[facility] Lymphocytes % 41.5 % [facility] Lymphocytes Abs 20.5(H) 0.9 - 3.2 x10(3)/[facility] Monocytes % 4.9 % [facility] Monocyte Abs 2.4(H) 0.3 - 0.9 x10(3)/[facility] Eosinophils % 0.0 % [facility] Eosinophils Abs 0.0 0.0 - 0.4 x10(3)/[facility] Basophils % 0.0 % [facility] Basophils Abs 0.0 0.0 - 0.1 x10(3)/[facility] Immature Gran % 2.10 % [facility] Comment: Immature granulocytes(IG's)percentage and absolute count will include metamyelocytes, myelocytes, and promyelocytes. Blood smears from CBCs yielding IG's will be scanned manually for concordance. If this scan disagrees with the automated IG or if promyelocytes are noted, a manual differential will be performed. Elizabeth Gran Abs 1.03(H) 0.00 - 0.04 x10(3)/[facility] Blood specimen (specimen) 03/14/2016 10:35 PM EST 03/14/2016 10:46 PM EST Narrative Resulting Agency Comment Spec In Lab Iván Chaves MD HEMATOLOGY ORDERABLE S [facility] [place] [address] * (ABNORMAL) Hemogram (03/14/2016 10:35 PM EST) WBC 49.4(Criti marco) 4.0 - 9.5 x10(3)/[facility] Comment: This result has been called to RACIEL CABRERA by CHANDRA ELLINGTON on 03 14 2016 at 2312, and has been read back. RBC 4.27 4.00 - 5.21 x10(6)/[facility] Hemoglobin 12.8 11.7 - 15.5 gm/dL [facility] Hematocrit 36.1 35.7 - 45.8 % [facility] MCV 84.5 82.6 - 94.4 fL [facility] MCH 30.0 27.1 - 32.0 pg [facility] MCHC 35.5(H) 31.7 - 35.0 gm/dL [facility] Platelets 313 145 - 357 x10(3)/[facility] RDWSD 39.2 37.0 - 46.0 [facility] RDWCV 12.9 11.5 - 14.1 % [facility] MPV 8.5 7.6 - 12.9 [facility] nRBC % Auto 0.0 % [facility] nRBC Abs Auto 0.000 0.000 - 0.000 x10(3)/[facility] Blood specimen (specimen) 03/14/2016 10:35 PM EST 03/14/2016 10:46 PM EST Narrative Resulting Agency Comment Spec In Lab Iván Chaves MD HEMATOLOGY ORDERABLE S [facility] [place] [address] * Cortisol (03/14/2016 10:35 PM EST) Cortisol 55.9 mcg/dL [facility] Comment: result rechecked-[facility] Reference ranges: ??AM (7-10am): ??6.2-19.4 mcg/dL ??PM (4-8pm): ??2.3-12.3 mcg/dL Blood specimen (specimen) 03/14/2016 10:35 PM EST 03/14/2016 10:46 PM EST Narrative Resulting Agency Comment Spec In Lab Iván Chaves MD CHEMISTRY ORDERABLES Performing Organization Address [facility] Co de Phone Number [facility] [address] * Blood culture (03/14/2016 10:35 PM EST) Blood Culture No growth at 5 days. [facility] Blood specimen (specimen) 03/14/2016 10:35 PM EST 03/14/2016 11:15 PM EST Comment:R FA Narrative Resulting Agency Comment Spec In Lab Iván Chaves MD MICROBIOLOGY - BLOOD ORDERABLES Performing Organization Address [facility] de Phone Number [facility] [place] [address] * APTT (03/14/2016 10:35 PM EST) PTT 27 25 - 35 sec [facility] Comment: The recommended therapeutic range for full dose, unfractionated heparin at [facility] is 80 ? 114 seconds. The use of the anti-Xa (heparin) level rather than the PTT is recommended for monitoring anticoagulation intensity in critically ill patients receiving unfractionated heparin by continuous IV infusion. Blood specimen (specimen) 03/14/2016 10:35 PM EST 03/14/2016 10:46 PM EST Narrative Resulting Agency Comment Spec In Lab Iván Chaves MD HEMATOLOGY ORDERABLE S Performing Organization Address [facility] de Phone Number [facility] [place] [address] * Prothrombin Time (03/14/2016 10:35 PM EST) PT 13.2 12.0 - 15.0 sec [facility] Comment: An INR <2.0 indicates adequate procoagulant activity for hemostasis in most patients without underlying bleeding disorders, though the INR may not adequately reflect hemostatic capacity in patients with liver disease and synthetic impairment. The recommended target INR range for therapeutic anticoagulation is 2.0 ? 3.0 for most applications, though lower and higher ranges may be appropriate depending on clinical circumstances. INR 1.0 0.9 - 1.1 [facility] Blood specimen (specimen) 03/14/2016 10:35 PM EST 03/14/2016 10:46 PM EST Narrative Resulting Agency Comment Spec In Lab Iván Chaves MD HEMATOLOGY ORDERABLE S [facility] [place] [address] * (ABNORMAL) Basic Metabolic Panel (non-fasting) (03/14/2016 10:35 PM EST) Glucose Lvl 196 65 - 199 mg/dL [facility] Comment:Diabetes: >=200 mg/d L plus symptoms BUN 10 8 - 18 mg/dL [facility] Creatinine 0.60(L) 0.70 - 1.20 mg/dL [facility] Comment: Please note that the pediatric reference intervals supplied above were not validated at [facility]. Results from pediatric patients should be interpreted in conjunction to the patient's age, height and muscle mass. Sodium 129(L) 135 - 145 mmol/L [facility] Potassium 3.3(L) 3.5 - 5.0 mmol/L [facility] Comment: Please note: ??Patients with WBC >100,000 may have falsely elevated Potassium levels. ??For accurate Potassium quantification in these patients send serum separator tube (gold top) for subsequent determinations. ??Contact the Clinical Chemistry Laboratory if there are any questions. Chloride 87(L) 98 - 107 mmol/L [facility] CO2 23 22 - 31 mmol/L [facility] Anion Gap 19(H) 5 - 15 mmol/L [facility] Calcium 8.0(L) 8.5 - 10.5 mg/dL [facility] Estimated GFR >60 >=60 [facility] Comment: This estimated GFR (eGFR) value [...] the following links into your internet browser. 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 Facial pain Headache Cervicalgia Pneumocephalus Other conditions of brain Personal history of unspecified leukemia Meningitis Meningitis, unspecified Hyponatremia Hyposmolality and/or hyponatremia documented in this encounter Admitting Diagnoses Diagnosis CSF leak Other specified disorder of nervous system documented in this encounter Administered Medications Inactive Administered Medications - up to 3 most recent administrations Medication Order MAR Action Action Date Dose Rate Site acetaminophen (TYLENOL) tablet 1,000 mg 1,000 mg, Oral, EVERY 6 HOURS, First dose on Mon03/15/16 at 1400, Until Discontinued, Maximum dose of acetaminophen is 4000 mg from all sources in 24 hours., Routine Given 03/22/2016 2:12 PM EST 1,000 mg Given 03/22/2016 8:26 AM EST 1,000 mg Given 03/22/2016 2:05 AM EST 1,000 mg acetaminophen (TYLENOL) tablet 1,000 mg 1,000 mg, Oral, EVERY 6 HOURS PRN, Starting on Mon03/22/16 at 1445, Until Mon03/23/16 at 2024, Pain, Maximum dose of acetaminophen is 4000 mg from all sources in 24 hours., Routine Given 03/23/2016 1:21 PM EST 1,000 mg acetaminophen (TYLENOL) tablet 650 mg 650 mg, Oral, ONCE, 1 dose, On 03/14/16 at 2256, Maximum dose of acetaminophen is 4000 mg from all sources in 24 hours., STAT Given 03/14/2016 10:56 PM EST 650 mg acetaminophen (TYLENOL) tablet 650 mg 650 mg, Oral, EVERY 4 HOURS PRN, Starting on Mon03/15/16 at 0112, Until Mon03/15/16 at 0902, Pain, mild pain, May repeat once in 30 minutes if desired effect not achieved. Do not exceed 4000 mg acetaminophen per day. Mild pain (1-3)., Routine Given 03/15/2016 7:37 AM EST 650 mg Given 03/15/2016 2:33 AM EST 650 mg amLODIPine (NORVASC) tablet 10 mg 10 mg, Oral, DAILY, First dose on Mon03/15/16 at 0900, Until Discontinued, Routine Given 03/23/2016 8:21 AM EST 10 mg Given 03/22/2016 8:26 AM EST 10 mg Given 03/21/2016 8:46 AM EST 10 mg bisacodyl (DULCOLAX) EC tablet 10 mg 10 mg, Oral, 2 TIMES DAILY PRN, Starting on Mon03/15/16 at 0112, Until Mon03/23/16 at 2024, Constipation, DO NOT CRUSH OR OPEN Administer if needed per patient's routine or if no bowel movement within 48 hours to achieve: 1) One bowel movement at least every 48 hours, AND 2) Without straining. If multiple bowel medications ordered, consider adding bisacodyl if polyethylene glycol (MIRALAX) and lactulose not sufficient., Routine Given 03/19/2016 8:43 PM EST 10 mg Given 03/18/2016 8:57 PM EST 10 mg bisacodyl (DULCOLAX) suppository 10 mg 10 mg, Rectal, DAILY PRN, Starting on Mon03/15/16 at 0112, Until Mon03/23/16 at 2024, Constipation, Administer if needed per patient's routine or if no bowel movement within 48 hours to achieve: 1) One bowel movement at least every 48 hours, AND 2) Without straining. If multiple bowel medications ordered, consider adding if docusate or milk of magnesia not sufficient., Routine Given 03/20/2016 5:17 AM EST 10 mg cefTRIAXone (ROCEPHIN) 2g in dextrose 5% 50mL 2,000 mg (2 g), Intravenous, EVERY 12 HOURS, First dose on Mon03/15/16 at 0130, Until Discontinued, Administer over 30 Minutes, Indication for (Active or Suspected): ECONOMIC DEVELOPMENT COORDINATOR/Meningitis Given 03/23/2016 4:00 AM EST 2,000 mg 100 mL/hr Given 03/22/2016 3:14 PM EST 2,000 mg 100 mL/hr Given 03/22/2016 3:56 AM EST 2,000 mg 100 mL/hr cefTRIAXone (ROCEPHIN) 2g in dextrose 5% 50mL 2,000 mg (2 g), Intravenous, EVERY 12 HOURS, First dose (after last modification) on Mon03/23/16 at 1100, Until Discontinued, Administer over 30 Minutes, Indication for (Active or Suspected): ECONOMIC DEVELOPMENT COORDINATOR/Meningitis Given 03/23/2016 11:28 AM EST 2,000 mg 100 mL/hr cefTRIAXone (ROCEPHIN) 2g in dextrose 5% 50mL 2,000 mg (2 g), Intravenous, ONCE, 1 dose, On Mon03/23/16 at 1700, Administer over 30 Minutes, Indication for (Active or Suspected): ECONOMIC DEVELOPMENT COORDINATOR/Meningitis Given 03/23/2016 5:13 PM EST 2,000 mg 100 mL/hr cyclobenzaprine (FLEXERIL) tablet 10 mg 10 mg, Oral, ONCE, 1 dose, On Mon03/15/16 at 2045, Routine Given 03/15/2016 9:01 PM EST 10 mg cyclobenzaprine (FLEXERIL) tablet 10 mg 10 mg, Oral, ONCE, 1 dose, On Mon03/16/16 at 1845, Routine Given 03/16/2016 6:48 PM EST 10 mg cyclobenzaprine (FLEXERIL) tablet 10 mg 10 mg, Oral, 3 TIMES DAILY PRN, Starting on Diana 03/17/16 at 1003, Until Mon03/23/16 at 2025, Muscle spasms, Routine Given 03/22/2016 8:19 PM EST 10 mg Given 03/22/2016 11:38 AM EST 10 mg Given 03/21/2016 6:34 AM EST 10 mg docusate sodium (COLACE) capsule 100 mg 100 mg, Oral, 2 TIMES DAILY, First dose on Mon03/15/16 at 0130, Until Discontinued, Routine Given 03/19/2016 8:12 AM EST 100 mg Given 03/18/2016 8:57 PM EST 100 mg Given 03/18/2016 8:10 AM EST 100 mg famotidine (PEPCID) injection 20 mg 20 mg, Intravenous, 2 TIMES DAILY, First dose on Mon03/15/16 at 0130, Until Discontinued, Routine Given 03/15/2016 1:54 AM EST 20 mg famotidine (PEPCID) tablet 20 mg 20 mg, Oral, 2 TIMES DAILY, First dose on Mon03/15/16 at 0130, Until Discontinued, If unable to take PO, may give IV, Routine Given 03/23/2016 8:21 AM EST 20 m g Given 03/22/2016 8:21 PM EST 20 mg Given 03/22/2016 8:26 AM EST 20 mg fentaNYL (PF) 50 mcg/mL injection 1 dose, Starting on Mon03/15/16 at 0030, Until Mon03/15/16 at 0031, TRAN Ludwig: cabinet override fentaNYL 50mcg/mL injection 25 mcg, Intravenous, ONCE, 1 dose, On Mon03/15/16 at 0055, Routine Given 03/15/2016 12:31 AM EST 25 mcg FLUoxetine (PROzac) capsule 40 mg 40 mg, Oral, DAILY, First dose on Mon03/15/16 at 0900, Until Discontinued, Routine Given 03/23/2016 8:21 AM EST 40 mg Given 03/22/2016 8:26 AM EST 40 mg Given 03/21/2016 8:46 AM EST 40 mg gadobutrol (GADAVIST) 1 mMol/mL injection 7 mL 7 mL, Intravenous, ONCE PRN, 1 dose, Starting on Mon03/14/16 at 2313, Until Mon03/14/16 at 2335, Per Protocol, Routine Given 03/14/2016 11:35 PM EST 7 mLs heparin (porcine) subcutaneous injection 5,000 Units 5,000 Units, Subcutaneous, EVERY 12 HOURS SCHEDULED (2 times per day), First dose on Mon03/15/16 at 2100, Until Discontinued, Routine Given 03/23/2016 8:20 AM EST 5,000 Units Given 03/22/2016 8:21 PM EST 5,000 Units Given 03/22/2016 8:29 AM EST 5,000 Units hydroCHLOROthiazide (HYDRODIURIL) tablet 25 mg 25 mg, Oral, DAILY, First dose on Mon03/15/16 at 0900, Until Discontinued, Routine Given 03/23/2016 8:21 AM EST 25 mg Given 03/22/2016 8:26 AM EST 25 mg Given 03/21/2016 8:46 AM EST 25 mg HYDROmorphone (DILAUDID) injection 0.2 mg 0.2 mg, Intravenous, EVERY 2 HOURS PRN, Starting on Mon03/15/16 at 1751, Until Mon03/18/16 at 0749, Pain, May give if oral medication ineffective and pain > 4., Routine Given 03/17/2016 10:55 PM EST 0.2 mg Given 03/17/2016 7:28 PM EST 0.2 mg Given 03/17/2016 2:15 PM EST 0.2 mg hydrOXYzine (ATARAX) tablet 25 mg 25 mg, Oral, 3 TIMES DAILY PRN, Starting on Mon03/18/16 at 2017, Until Mon03/23/16 at 2024, Itching, Anxiety, Routine Given 03/22/2016 8:19 PM EST 25 mg Given 03/21/2016 8:41 PM EST 25 mg Given 03/21/2016 2:19 AM EST 25 mg ketorolac (TORADOL) injection 30 mg 30 mg, Intravenous, ONCE, 1 dose, On Mon03/14/16 at 2256, STAT Given 03/14/2016 10:56 PM EST 30 mg labetalol (NORMODYNE,TRANDATE) injection 10-20 mg 10-20 mg, Intravenous, EVERY 1 HOUR PRN, Starting on Mon03/15/16 at 0112, Until Mon03/23/16 at 2024, High Blood Pressure, Target systolic blood pressure (SBP) less than 160 mmHg. Administer 10 mg over 2 minutes. May repeat every 15 minutes if SBP remains above goal. If inadequate effect with second 10 mg dose then increase dose to 20 mg for subsequent dosing every 15 minutes. Dose not to exceed 300 mg per day. Hold if pulse is less than 50 beats per minute., Routine Given 03/20/2016 8:06 PM EST 20 m g Given 03/20/2016 2:57 PM EST 20 mg Given 03/20/2016 11:58 AM EST 10 mg lidocaine (XYLOCAINE) 10 mg/mL (1 %) injection 100 mg 100 mg (10 mL), Subdermal, ONCE, 1 dose, On Mon03/14/16 at 2353, Routine Given 03/14/2016 11:53 PM EST 100 mg lidocaine (XYLOCAINE) 10 mg/mL (1 %) injection 5 mg 5 mg, Subcutaneous, ONCE, 1 dose, On Mon03/21/16 at 1115, Routine Given 03/21/2016 11:15 AM EST 5 mg LORazepam (ATIVAN) injection 1 mg 1 mg, Intravenous, ONCE, 1 dose, On Mon03/16/16 at 0130, Routine Given 03/16/2016 1:35 AM EST 1 mg losartan (COZAAR) tablet 100 mg 100 mg, Oral, DAILY, First dose on Mon03/15/16 at 0900, Until Discontinued, Routine Given 03/23/2016 8:21 AM EST 100 mg Given 03/22/2016 8:26 AM EST 100 mg Given 03/21/2016 8:46 AM EST 100 mg magnesium sulfate 1g in dextrose 5% 100mL 1 g, Intravenous, ONCE, 1 dose, On Mon03/16/16 at 0000, Administer over 60 Minutes Given 03/16/2016 1:34 AM EST 1 g 100 mL/hr melatonin tablet 3 mg 3 mg, Oral, NIGHTLY PRN, Starting on Mon03/18/16 at 2017, Until Mon03/23/16 at 2025, for sleep, Routine Given 03/22/2016 8:29 PM EST 3 mg Given 03/21/2016 8:36 PM EST 3 mg Given 03/19/2016 8:44 PM EST 3 mg metroNIDAZOLE (FLAGYL) 500 mg in sodium chloride 0.9% 100 mL 500 mg, Intravenous, EVERY 8 HOURS, First dose on Mon03/15/16 at 0130, Until Discontinued, Administer over 30 Minutes, Indication for (Active or Suspected): Anaerobic infection-ECONOMIC DEVELOPMENT COORDINATOR Given 03/21/2016 5:50 PM EST 500 m g 200 mL/hr Given 03/21/2016 9:51 AM EST 500 mg 200 mL/hr Given 03/21/2016 1:17 AM EST 500 mg 200 mL/hr metroNIDAZOLE (FLAGYL) tablet 500 mg 500 mg, Oral, 3 TIMES DAILY, First dose on Mon03/22/16 at 0900, Until Discontinued, Routine, Indication for (Active or Suspected): Anaerobic infection-ECONOMIC DEVELOPMENT COORDINATOR Given 03/23/2016 3:18 PM EST 500 mg Given 03/23/2016 8:21 AM EST 500 mg Given 03/22/2016 8:19 PM EST 500 mg ondansetron (ZOFRAN) injection 4 mg 4 mg, Intravenous, EVERY 8 HOURS PRN, Starting on Mon03/15/16 at 0112, Until Mon03/23/16 at 2024, Nausea, If multiple antiemetics are ordered, use ondansetron first, prochlorperazine second, and metaclopramide third. May repeat times one in 30 minutes if ineffective ondansetron (ZOFRAN) tablet 4 mg 4 mg, Oral, EVERY 8 HOURS PRN, Starting on Mon03/15/16 at 0112, Until Mon03/23/16 at 2024, Nausea, Vomiting, If multiple antiemetics are ordered, use ondansetron first, prochlorperazine second, and metaclopramide third. PO Preferred. If patient unable to take PO, may give IV if ordered. May repeat times one in 45 minutes if ineffective., Routine oxyCODONE (ROXICODONE) immediate release tablet 10 mg 10 mg, Oral, EVERY 3 HOURS PRN, Starting on Mon03/15/16 at 0915, Until Mon03/23/16 at 2024, Pain, severe pain (7-10), May give an additional 5 mg in 30 minutes once if pain not relieved. Severe pain (7-10), Routine Given 03/22/2016 5:47 AM EST 10 mg Given 03/21/2016 6:52 PM EST 10 mg Given 03/21/2016 11:11 AM EST 10 mg oxyCODONE (ROXICODONE) immediate release tablet 5 mg 5 mg, Oral, EVERY 4 HOURS PRN, Starting on Mon03/15/16 at 0112, Until Mon03/15/16 at 0902, Pain, mild to moderate pain (1-6), May give an additional 5 mg in 30 minutes once if pain not relieved. Mild to moderate pain (1-6), Routine Given 03/15/2016 8: 13 AM EST 5 mg Given 03/15/2016 7:37 AM EST 5 mg Given 03/15/2016 3:44 AM EST 5 mg oxyCODONE (ROXICODONE) immediate release tablet 5 mg 5 mg, Oral, EVERY 3 HOURS PRN, Starting on Mon03/15/16 at 0915, Until Mon03/23/16 at 2024, Pain, mild to moderate pain (1-6), May give an additional 5 mg in 30 minutes once if pain not relieved. Mild to moderate pain (1-6), Routine Given 03/18/2016 7: 02 AM EST 5 mg Given 03/18/2016 1:56 AM EST 5 mg Given 03/17/2016 9:56 PM EST 5 mg pantothenic Ac-Min Oil-Pet,Hyd (AQUAPHOR) 41 % ointment Topical (Top), 3 TIMES DAILY PRN, Dry Skin, Starting on Mon03/21/16 at 1448, Until Mon03/23/16 at 2024 polyethylene glycol (MIRALAX) packet 17 g 17 g, Oral, DAILY PRN, Starting on Mon03/15/16 at 0112, Until Mon03/23/16 at 2024, Constipation, Administer if needed per patient's routine or if no bowel movement within 48 hours to achieve: 1) One bowel movement at least every 48 hours, AND 2) Without straining. If multiple bowel medications ordered, consider polyethylene glycol(MIRALAX) first., Routine Given 03/19/2016 8:43 PM EST 17 g Given 03/18/2016 7:46 PM EST 17 g potassium chloride (K-DUR/KLOR-CON) extended release tablet 20 mEq 20 mEq, Oral, 2 TIMES DAILY, First dose (after last modification) on Mon03/15/16 at 1115, Until Discontinued, 20 mEq tablet may be dissolved in water for administration, Routine Given 03/16/2016 9:07 AM EST 20 mEq Given 03/15/2016 9:02 PM EST 20 mEq Given 03/15/2016 11:13 AM EST 20 mEq potassium chloride (K-DUR/KLOR-CON) extended release tablet 20 mEq 20 mEq, Oral, 2 TIMES DAILY, First dose on Mon03/21/16 at 1215, Until Discontinued, 20 mEq tablet may be dissolved in water for administration, Routine Given 03/23/2016 8:21 AM EST 20 mEq Given 03/22/2016 8:22 PM EST 20 mEq Given 03/22/2016 8:26 AM EST 20 mEq potassium chloride (K-DUR/KLOR-CON) extended release tablet 40 mEq 40 mEq, Oral, EVERY 4 HOURS PRN, Starting on Mon03/15/16 at 0404, Until Mon03/15/16 at 0836, hypokalemia, Administer for serum potassium (mMol/L) of 2.6 - 3.8 See instructions for Potassium Protocol in online policies., Routine Given 03/15/2016 4:13 AM EST 40 mEq potassium chloride (K-DUR/KLOR-CON) extended release tablet 40 mEq 40 mEq, Oral, ONCE, 1 dose, On Mon03/16/16 at 1245, 20 mEq tablet may be dissolved in water for administration, Routine Given 03/16/2016 12:59 PM EST 40 mEq potassium chloride (K-DUR/KLOR-CON) extended release tablet 40 mEq 40 mEq, Oral, ONCE, 1 dose, On Mon03/16/16 at 1945, 20 mEq tablet may be dissolved in water for administration, Routine Given 03/16/2016 8:45 PM EST 40 mEq potassium chloride (K-DUR/KLOR-CON) extended release tablet 40 mEq 40 mEq, Oral, ONCE, 1 dose, On Mon03/17/16 at 0045, 20 mEq tablet may be dissolved in water for administration, Routine Given 03/17/2016 12:50 AM EST 40 mEq potassium chloride (K-DUR/KLOR-CON) extended release tablet 40 mEq 40 mEq, Oral, ONCE, 1 dose, On Diana 03/17/16 at 2200, 20 mEq tablet may be dissolved in water for administration, Routine Given 03/17/2016 9:55 PM EST 40 mEq potassium chloride (K-DUR/KLOR-CON) extended release tablet 40 mEq 40 mEq, Oral, 2 TIMES DAILY, 2 doses, First dose (after last reorder) on Mon03/18/16 at 2000, Last dose on Mon03/19/16 at 0900, 20 mEq tablet may be dissolved in water for administration, Routine Given 03/19/2016 8:13 AM EST 40 mEq Given 03/18/2016 7:45 PM EST 40 mEq potassium chloride 10 mEq in 100 mL 10 mEq, Intravenous, EVERY HOUR, 4 doses, First dose on Mon03/15/16 at 0500, Last dose on Mon03/15/16 at 0800, Administer over 60 Minutes, Warning Vesicant/Irritant Medication Given 03/15/2016 7:55 AM EST 10 mEq 100 mL/hr Given 03/15/2016 6:32 AM EST 10 mEq 100 mL/hr Given 03/15/2016 4:49 AM EST 10 mEq 100 mL/hr potassium chloride 10 mEq in 100 mL 10 mEq, Intravenous, ONCE, 1 dose, On Mon03/16/16 at 0015, Administer over 60 Minutes, Warning Vesicant/Irritant Medication Given 03/16/2016 1:34 AM EST 10 mEq 100 mL/hr potassium chloride 10 mEq in 100 mL 10 mEq, Intravenous, ONCE, 1 dose, On Mon03/16/16 at 1830, Administer over 60 Minutes, Warning Vesicant/Irritant Medication Given 03/16/2016 6:52 PM EST 10 mEq 100 mL/hr potassium chloride 10 mEq in 100 mL 10 mEq, Intravenous, EVERY 2 HOURS, 2 doses, First dose (after last reorder) on Mon03/16/16 at 2000, Last dose on Mon03/16/16 at 2200, Administer over 60 Minutes, Warning Vesicant/Irritant Medication Given 03/16/2016 10:42 PM EST 10 mEq 100 mL/hr Given 03/16/2016 9:35 PM EST 10 mEq 100 mL/hr potassium chloride 10 mEq in 100 mL 10 mEq, Intravenous, EVERY 2 HOURS, 2 doses, First dose (after last reorder) on Mon03/17/16 at 0045, Last dose on Mon03/17/16 at 0245, Administer over 60 Minutes, Warning Vesicant/Irritant Medication Given 03/17/2016 2:11 AM EST 10 mEq 100 mL/hr Given 03/17/2016 12:51 AM EST 10 mEq 100 mL/hr potassium chloride 10 mEq in 100 mL 10 mEq, Intravenous, EVERY 2 HOURS, 3 doses, First dose on Mon03/17/16 at 1900, Last dose on Mon03/17/16 at 2300, Administer over 60 Minutes, -Use only for pateint who is NPO, lacks enteral access, or potassium level less than 2.8 mMol/L -Doses in excess of 40 mEq potassium require re-checking STAT serum potassium level 1.5 hours after completion of last dose and prior to administration of additional doses. Administer each 10 mEq/100 mL dose over 60 minutes. Given 03/17/2016 6:56 PM EST 10 mE q 100 mL/hr potassium chloride 10 mEq in 100 mL 10 mEq, Intravenous, EVERY 2 HOURS, 2 doses, First dose (after last reorder) on Mon03/18/16 at 1800, Last dose on Mon03/18/16 at 2000, Administer over 60 Minutes, Warning Vesicant/Irritant Medication Given 03/18/2016 7:45 PM EST 10 mEq 100 mL/hr Given 03/18/2016 6:27 PM EST 10 mEq 100 mL/hr senna-docusate (PERICOLACE) 8.6-50 mg per tablet 2 tablet 2 tablet, Oral, 2 TIMES DAILY, First dose on Mon03/15/16 at 0130, Until Discontinued, Routine Given 03/22/2016 8:26 AM EST 2 tablets Given 03/21/2016 8:36 PM EST 2 tablets Given 03/21/2016 8:46 AM EST 2 tablets sodium chloride 0.9 % flush 5 mL 5 mL, Intravenous, 2 TIMES DAILY, First dose on Mon03/15/16 at 0130, Until Discontinued, Recovery (Rec[facility]-Hospital Unit), Routine Given 03/17/2016 8:41 PM EST 5 mLs Given 03/17/2016 9:00 AM EST 5 mLs Given 03/16/2016 8:50 PM EST 5 mLs sodium chloride 0.9% 1,000 mL IV bolus at 4,000 mL/hr, Intravenous, ONCE, 1 dose, On 03/14/16 at 2313 Given 03/14/2016 11:13 PM EST 4000 mL/hr sodium chloride 0.9% infusion 75 mL/hr, Intravenous, CONTINUOUS, Starting on Mon03/15/16 at 0130, Until Mon03/15/16 at 1343, Recovery ([facility]Hospital Unit) New Bag 03/15/2016 1:52 AM EST 75 mL/hr 75 mL/ hr sodium chloride 0.9% infusion 10 mL/hr, Intravenous, CONTINUOUS, Starting on Mon03/15/16 at 0515, Until Mon03/15/16 at 0836 New Bag 03/15/2016 1:45 AM EST 10 mL/hr 10 mL/hr sodium chloride 0.9% infusion 10 mL/hr, Intravenous, CONTINUOUS, Starting on Mon03/15/16 at 0515, Until Mon03/15/16 at 0836 New 03/15/2016 1:40 AM EST 10 mL/hr 10 mL/hr sodium chloride 3 % infusion 30 mL/hr, Intravenous, CONTINUOUS, Starting on Mon03/15/16 at 0130, Until Mon03/17/16 at 1138, Hold for Na > 145, Routine 03/17/2016 8:12 AM EST 30 mL/hr 30 mL/hr New 03/16/2016 11:59 AM EST 30 mL/hr 30 mL/hr New 03/15/2016 6:31 PM EST 30 mL/hr 30 mL/hr sodium chloride tablet 1 g 1 g, Oral, 3 TIMES DAILY, First dose on Mon03/17/16 at 1500, Until Discontinued, Routine Given 03/21/2016 8:46 AM ES T 1 g Given 03/20/2016 8:03 PM EST 1 g Given 03/20/2016 4:14 PM EST 1 g valACYclovir (VALTREX) tablet 1,000 mg 1,000 mg, Oral, 2 TIMES DAILY, 2 doses, First dose on Mon03/22/16 at 0100, Last dose on Mon03/22/16 at 0900, Routine, Indication for (Active or Suspected): Skin/Skin Structure Given 03/22/2016 8:26 AM EST 1,000 mg Given 03/22/2016 2:03 AM EST 1,000 mg vancomycin (VANCOCIN) 500 mg in sodium chloride 0.9% 110 mL 500 mg, Intravenous, at 220 mL/hr, EVERY 12 HOURS, First dose on Mon03/15/16 at 1430, Until Discontinued, Maximum infusion rate is 1 gram/hour. If flushing of the face, neck, upper body, arms, and/or back occurs decrease infusion rate by 50% to reduce the severity of symptoms. This medication may have an associated drug lab level. Please see MAR for scheduled level., Routine Given 03/16/2016 4:59 PM EST 500 mg 220 m L/hr Given 03/16/2016 5:11 AM EST 500 mg 220 mL/hr Given 03/15/2016 3:12 PM EST 500 mg 220 mL/hr vancomycin (VANCOCIN) 500 mg in sodium chloride 0.9% 110 mL 500 mg, Intravenous, at 220 mL/hr, ONCE, 1 dose, On 03/16/16 at 1900, Maximum infusion rate is 1 gram/hour. If flushing of the face, neck, upper body, arms, and/or back occurs decrease infusion rate by 50% to reduce the severity of symptoms. This medication may have an associated drug lab level. Please see MAR for scheduled level. Warning Vesicant/Irritant Medication , Routine Given 03/16/2016 6:50 PM EST 500 mg 220 mL/ hr vancomycin 1 g in 0.9 % sodium chloride 200 mL 1,000 mg (1 g), Intravenous, EVERY 12 HOURS, First dose (after last modification) on [place] 03/17/16 at 0600, Until Discontinued, Maximum infusion rate is 1 gram/hour. If flushing of the face, neck, upper body, arms, and/or back occurs decrease infusion rate by 50% to reduce the severity of symptoms. This medication may have an associated drug lab level. Please see MAR for scheduled level., Routine Given 03/19/2016 8:23 AM EST 1,000 mg Given 03/18/2016 8:57 PM EST 1,000 mg Given 03/18/2016 9:38 AM EST 1,000 mg vancomycin 1 g in 0.9 % sodium chloride 200 mL 1,000 mg (1 g), Intravenous, EVERY 8 HOURS, First dose (after last modification) on [facility] 03/19/16 at 1630, Until Discontinued, Maximum infusion rate is 1 gram/hour. If flushing of the face, neck, upper body, arms, and/or back occurs decrease infusion rate by 50% to reduce the severity of symptoms. This medication may have an associated drug lab level. Please see MAR for scheduled level., Routine Given 03/20/2016 5:37 PM EST 1,000 mg Given 03/20/2016 7:58 AM EST 1,000 mg Given 03/20/2016 12:41 AM EST 1,000 mg vancomycin 1.25 g sodium in chloride 0.9% 250 mL 1,250 mg (1.25 g), Intravenous, at 200 mL/hr, EVERY 8 HOURS, First dose (after last modification) on Mon03/21/16 at 0030, Until Discontinued, Maximum infusion rate is 1 gram/hour. If flushing of the face, neck, upper body, arms, and/or back occurs decrease infusion rate by 50% to reduce the severity of symptoms. This medication may have an associated drug lab level. Please see MAR for scheduled level., Routine Given 03/22/2016 10:05 AM EST 1,250 mg 200 mL/hr Given 03/22/2016 2:04 AM EST 1,250 mg 200 mL/hr Given 03/21/2016 4:56 PM EST 1,250 mg 200 mL/hr vancomycin 1.5 g in sodium chloride 0.9% 250 mL 1,500 mg (1.5 g), Intravenous, EVERY 12 HOURS, 1 dose, First dose on Mon03/15/16 at 0230, Maximum infusion rate is 1 gram/hour. If flushing of the face, neck, upper body, arms, and/or back occurs decrease infusion rate by 50% to reduce the severity of symptoms. This medication may have an associated drug lab level. Please see MAR for scheduled level., Routine Given 03/15/2016 2:54 AM EST 1,500 mg documented in this encounter Active and Recently Administered Medications Times are shown in EST. Scheduled Medication Order 03/21/2016 03/22/2016 03/23/2016 acetaminophen (TYLENOL) tablet 1,000 mg (CANCELED) 1,000 mg, Oral, EVERY 6 HOURS, First dose on Mon03/15/16 at 1400, Until Discontinued, Maximum dose of acetaminophen is 4000 mg from all sources in 24 hours., Routine 021 (Given - Provider: Jose Woodard RN)0846 (Given - Provider: Trav Reynoso RN)143 (Given - Provider: Mecca Garces RN)2035 (Given - Provider: Emeli Alegria, EBONIE) 020 (Given - Provider: Emeli Alegria, EBONIE)0826 (Given - Provider: Ariela Bustillo, EBONIE)1412 (Given - Provider: Ariela Bustillo RN) amLODIPine (NORVASC) tablet 10 mg 10 mg, Oral, DAILY, First dose on Mon03/15/16 at 0900, Until Discontinued, Routine 0846 (Given - Provider: Trav Reynoso RN) 0826 (Given - Provider: Ariela Bustillo RN) 0821 (Given - Provider: Ariela Bustillo RN) cefTRIAXone (ROCEPHIN) 2g in dextrose 5% 50mL (CANCELED) 2,000 mg (2 g), Intravenous, EVERY 12 HOURS, First dose on Mon03/15/16 at 0130, Until Discontinued, Administer over 30 Minutes, Indication for (Active or Suspected): ECONOMIC DEVELOPMENT COORDINATOR/Meningitis 0117 (Given - Provider: Jose Woodard RN)1314 (Given - Provider: Trav Reynoso RN) 0356 (Given - Provider: Emeli Alegria RN)1514 (Given - Provider: Ariela Bustillo, EBONIE) 0400 (Given - Provider: Emeli Alegria RN) cefTRIAXone (ROCEPHIN) 2g in dextrose 5% 50mL 2,000 mg (2 g), Intravenous, EVERY 12 HOURS, First dose (after last modification) on Mon03/23/16 at 1100, Until Discontinued, Administer over 30 Minutes, Indication for (Active or Suspected): ECONOMIC DEVELOPMENT COORDINATOR/Meningitis 1128 (Given - Provider: Ariela Bustillo RN) cefTRIAXone (ROCEPHIN) 2g in dextrose 5% 50mL 2,000 mg (2 g), Intravenous, ONCE, 1 dose, On Mon03/23/16 at 1700, Administer over 30 Minutes, Indication for (Active or Suspected): ECONOMIC DEVELOPMENT COORDINATOR/Meningitis 1713 (Given - Provider: Ariela Bustillo RN) famotidine (PEPCID) injection 20 mg(Linked Group 1) 20 mg, Intravenous, 2 TIMES DAILY, First dose on Mon03/15/16 at 0130, Until Discontinued, Routine 0846 (See Alternative - Provider: Trav Reynoso RN)2035 (See Alternative - Provider: Emeli Alegria RN) 0826 (See Alternative - Provider: Ariela Bustillo RN)2020 (See Alternative - Provider: Emeli Alegria RN) 0821 (See Alternative - Provider: Ariela Bustillo RN) famotidine (PEPCID) tablet 20 mg(Linked Group 1) 20 mg, Oral, 2 TIMES DAILY, First dose on Mon03/15/16 at 0130, Until Discontinued, If unable to take PO, may give IV, Routine 0846 (Given - Provider: Trav Reynoso RN)2035 (Given - Provider: Emeli Alegria RN) 08 (Given - Provider: Ariela Bustillo, EBONIE)2020 (Given - Provider: Emeli Alegria RN) 08 (Given - Provider: Ariela Bustillo RN) FLUoxetine (PROzac) capsule 40 mg 40 mg, Oral, DAILY, First dose on Mon03/15/16 at 0900, Until Discontinued, Routine 0846 (Given - Provider: Trav Reynoso RN) 08 (Given - Provider: Ariela Bustillo RN) 08 (Given - Provider: Ariela Bustillo RN) heparin (porcine) subcutaneous injection 5,000 Units 5,000 Units, Subcutaneous, EVERY 12 HOURS SCHEDULED (2 times per day), First dose on Mon03/15/16 at 2100, Until Discontinued, Routine 0846 (Given - Provider: Trav Reynoso RN)2035 (Given - Provider: Emeli Alegria RN) 08 (Given - Provider: Ariela Bustillo RN)2020 (Given - Provider: Emeli Alegria RN) 0820 (Given - Provider: Ariela Bustillo RN) hydroCHLOROthiazide (HYDRODIURIL) tablet 25 mg 25 mg, Oral, DAILY, First dose on Mon03/15/16 at 0900, Until Discontinued, Routine 0846 (Given - Provider: Trav Reynoso RN) 08 (Given - Provider: Ariela Bustillo RN) 08 (Given - Provider: Ariela Bustillo RN) lidocaine (XYLOCAINE) 10 mg/mL (1 %) injection 5 mg (COMPLETED) 5 mg, Subcutaneous, ONCE, 1 dose, On Mon03/21/16 at 1115, Routine 1115 (Given - Provider: Trav Reynoso RN - Comment: admin by PA at bedside) losartan (COZAAR) tablet 100 mg 100 mg, Oral, DAILY, First dose on 12/13/16 at 0900, Until Discontinued, Routine 0846 (Given - Provider: Trav Reynoso RN) 0826 (Given - Provider: Ariela Bustillo, EBONIE) 0821 (Given - Provider: Ariela Bustillo RN) metroNIDAZOLE (FLAGYL) 500 mg in sodium chloride 0.9% 100 mL (CANCELED) 500 mg, Intravenous, EVERY 8 HOURS, First dose on Mon03/15/16 at 0130, Until Discontinued, Administer over 30 Minutes, Indication for (Active or Suspected): Anaerobic infection-ECONOMIC DEVELOPMENT COORDINATOR 0117 (Given - Provider: Jose Woodard RN)0951 (Given - Provider: Trav Reynoso RN)1750 (Given - Provider: Mecca Garces RN) metroNIDAZOLE (FLAGYL) tablet 500 mg 500 mg, Oral, 3 TIMES DAILY, First dose on Mon03/22/16 at 0900, Until Discontinued, Routine, Indication for (Active or Suspected): Anaerobic infection-ECONOMIC DEVELOPMENT COORDINATOR 0826 (Given - Provider: Ariela Bustillo RN)1514 (Given - Provider: Ariela Bustillo RN)2019 (Given - Provider: Emeli Alegria RN) 08 (Given - Provider: Ariela Bustillo RN)1518 (Given - Provider: Ariela Bustillo RN) potassium chloride (K-DUR/KLOR-CON) extended release tablet 20 mEq 20 mEq, Oral, 2 TIMES DAILY, First dose on Mon03/21/16 at 1215, Until Discontinued, 20 mEq tablet may be dissolved in water for administration, Routine 1314 (Given - Provider: Trav Reynoso RN)2035 (Given - Provider: Emeli Alegria RN) 0826 (Given - Provider: Ariela Bustillo RN)2021 (Given - Provider: Emeli Alegria RN) 0821 (Given - Provider: Ariela Bustillo RN) senna-docusate (PERICOLACE) 8.6-50 mg per tablet 2 tablet 2 tablet, Oral, 2 TIMES DAILY, First dose on Mon03/15/16 at 0130, Until Discontinued, Routine 0846 (Given - Provider: Trav Reynoso RN)203 (Given - Provider: Emeli Alegria RN) 0826 (Given - Provider: Ariela Bustillo, EBONIE)2100 (Hold - Provider: Emeli Alegria RN - Reason: Contraindicated) 0900 (Not Given - Provider: Ariela Bustillo, EBONIE - Reason: Patient/family refused) sodium chloride tablet 1 g (CANCELED) 1 g, Oral, 3 TIMES DAILY, First dose on [place] 03/17/16 at 1500, Until Discontinued, Routine 0846 (Given - Provider: Trav Reynoso RN) valACYclovir (VALTREX) tablet 1,000 mg (COMPLETED) 1,000 mg, Oral, 2 TIMES DAILY, 2 doses, First dose on Mon03/22/16 at 0100, Last dose on Mon03/22/16 at 0900, Routine, Indication for (Active or Suspected): Skin/Skin Structure 0203 (Given - Provider: Emeli Alegria RN)0826 (Given - Provider: Ariela Bustillo RN) vancomycin 1.25 g sodium in chloride 0.9% 250 mL (CANCELED)(Linked Group 2) 1,250 mg (1.25 g), Intravenous, at 200 mL/hr, EVERY 8 HOURS, First dose (after last modification) on Mon03/21/16 at 0030, Until Discontinued, Maximum infusion rate is 1 gram/hour. If flushing of the face, neck, upper body, arms, and/or back occurs decrease infusion rate by 50% to reduce the severity of symptoms. This medication may have an associated drug lab level. Please see MAR for scheduled level., Routine 0210 (Given - Provider: Jose Woodard RN)0847 (Given - Provider: Trav Reynoso RN)1656 (Given - Provider: Mecca Garces RN) 0204 (Given - Provider: Emeli Alegria RN - Comment: pharmacist wanted to wait until trough came back.)1005 (Given - Provider: Ariela Bustillo, EBONIE) PRN Medication Order 03/21/2016 03/22/2016 03/23/2016 acetaminophen (TYLENOL) tablet 1,000 mg 1,000 mg, Oral, EVERY 6 HOURS PRN, Starting on Mon03/22/16 at 1445, Until Mon03/23/16 at 2025, Pain, Maximum dose of acetaminophen is 4000 mg from all sources in 24 hours., Routine 1321 (Given - Provider: Ariela Bustillo, EBONIE) albuterol (PROVENTIL HFA;VENTOLIN HFA;PROAIR) 90 mcg/actuation inhaler 2 puff 2 puff, Inhalation, EVERY 4 HOURS PRN, Starting on Mon03/15/16 at 0112, Until Mon03/23/16 at 2024, Wheezing, Routine bisacodyl (DULCOLAX) EC tablet 10 mg 10 mg, Oral, 2 TIMES DAILY PRN, Starting on Mon03/15/16 at 0112, Until Mon03/23/16 at 2024, Constipation, DO NOT CRUSH OR OPEN Administer if needed per patient's routine or if no bowel movement within 48 hours to achieve: 1) One bowel movement at least every 48 hours, AND 2) Without straining. If multiple bowel medications ordered, consider adding bisacodyl if polyethylene glycol (MIRALAX) and lactulose not sufficient., Routine bisacodyl (DULCOLAX) suppository 10 mg 10 mg, Rectal, DAILY PRN, Starting on Mon03/15/16 at 0112, Until Mon03/23/16 at 2024, Constipation, Administer if needed per patient's routine or if no bowel movement within 48 hours to achieve: 1) One bowel movement at least every 48 hours, AND 2) Without straining. If multiple bowel medications ordered, consider adding if docusate or milk of magnesia not sufficient., Routine cyclobenzaprine (FLEXERIL) tablet 10 mg 10 mg, Oral, 3 TIMES DAILY PRN, Starting on [place] 03/17/16 at 1003, Until Mon03/23/16 at 2024, Muscle spasms, Routine 0634 (Given - Provider: Jose Woodard RN) 1138 (Given - Provider: Ariela Bustillo, EBONIE)2019 (Given - Provider: Emeli Alegria RN) hydrALAZINE (APRESOLINE) injection 10 mg 10 mg, Intravenous, EVERY 1 HOUR PRN, Starting on Mon03/15/16 at 0112, Until Mon03/23/16 at 2024, High Blood Pressure, Target systolic blood pressure (SBP) less than 160 mmHg. Administer 10 mg IV . May repeat once in 15 minutes if SBP greater than target BP (caution if HR greater than 90). Use if labetalol ineffective after 1 hour., Routine hydrOXYzine (ATARAX) tablet 25 mg 25 mg, Oral, 3 TIMES DAILY PRN, Starting on Mon03/18/16 at 2016, Until Mon03/23/16 at 2024, Itching, Anxiety, Routine 218 (Given - Provider: Jose Woodard RN)2040 (Given - Provider: Emeli Alegria RN) 2018 (Given - Provider: Emeli Alegria RN) labetalol (NORMODYNE,TRANDATE) injection 10-20 mg 10-20 mg, Intravenous, EVERY 1 HOUR PRN, Starting on Mon03/15/16 at 0112, Until Mon03/23/16 at 2024, High Blood Pressure, Target systolic blood pressure (SBP) less than 160 mmHg. Administer 10 mg over 2 minutes. May repeat every 15 minutes if SBP remains above goal. If inadequate effect with second 10 mg dose then increase dose to 20 mg for subsequent dosing every 15 minutes. Dose not to exceed 300 mg per day. Hold if pulse is less than 50 beats per minute., Routine melatonin tablet 3 mg 3 mg, Oral, NIGHTLY PRN, Starting on Mon03/18/16 at 2016, Until Mon03/23/16 at 2024, for sleep, Routine 2035 (Given - Provider: Emeli Alegria RN) 2028 (Given - Provider: Emeli Alegria RN) metoclopramide (REGLAN) injection 10 mg 10 mg, Intravenous, EVERY 6 HOURS PRN, Starting on Mon03/15/16 at 0112, Until Mon03/23/16 at 2024, Nausea, If multiple antiemetics are ordered, use ondansetron first, prochlorperazine second, and metaclopramide third. ondansetron (ZOFRAN) injection 4 mg(Linked Group 3) 4 mg, Intravenous, EVERY 8 HOURS PRN, Starting on Mon03/15/16 at 0112, Until Mon03/23/16 at 2024, Nausea, If multiple antiemetics are ordered, use ondansetron first, prochlorperazine second, and metaclopramide third. May repeat times one in 30 minutes if ineffective ondansetron (ZOFRAN) tablet 4 mg(Linked Group 3) 4 mg, Oral, EVERY 8 HOURS PRN, Starting on Mon03/15/16 at 0112, Until Mon03/23/16 at 2024, Nausea, Vomiting, If multiple antiemetics are ordered, use ondansetron first, prochlorperazine second, and metaclopramide third. PO Preferred. If patient unable to take PO, may give IV if ordered. May repeat times one in 45 minutes if ineffective., Routine oxyCODONE (ROXICODONE) immediate release tablet 10 mg(Linked Group 4) 10 mg, Oral, EVERY 3 HOURS PRN, Starting on Mon03/15/16 at 0915, Until Mon03/23/16 at 2024, Pain, severe pain (7-10), May give an additional 5 mg in 30 minutes once if pain not relieved. Severe pain (7-10), Routine 0630 ([facility] - Provider: Jose Woodard RN - Reason: See comment - Comment: 5 mg administered)1111 (Given - Provider: Trav Reynoso RN)185 (Given - Provider: Mecca Garces RN) 0547 (Given - Provider: Emeli Alegria RN) oxyCODONE (ROXICODONE) immediate release tablet 5 mg(Linked Group 4) 5 mg, Oral, EVERY 3 HOURS PRN, Starting on Mon03/15/16 at 0915, Until Mon03/23/16 at 2024, Pain, mild to moderate pain (1-6), May give an additional 5 mg in 30 minutes once if pain not relieved. Mild to moderate pain (1-6), Routine 0630 (See Alternative - Provider: Jose Woodard RN)1111 (See Alternative - Provider: Trav Reynoso RN)185 (See Alternative - Provider: Mecca Garces RN) 0547 (See Alternative - Provider: Emeli Alegria RN) pantothenic Ac-Min Oil-Pet,Hyd (AQUAPHOR) 41 % ointment Topical (Top), 3 TIMES DAILY PRN, Dry Skin, Starting on Mon03/21/16 at 1448, Until Mon03/23/16 at 2024 polyethylene glycol (MIRALAX) packet 17 g 17 g, Oral, DAILY PRN, Starting on Mon03/15/16 at 011, Until Mon03/23/16 at 2024, Constipation, Administer if needed per patient's routine or if no bowel movement within 48 hours to achieve: 1) One bowel movement at least every 48 hours, AND 2) Without straining. If multiple bowel medications ordered, consider polyethylene glycol(MIRALAX) first., Routine Linked Groups Order Group 1: famotidine (PEPCID) tablet 20 mgJump to med 20 mg, Oral, 2 TIMES DAILY, First dose on Mon03/15/16 at 0130, Until Discontinued, If unable to take PO, may give IV, Routine Or famotidine (PEPCID) injection 20 mgJump to med 20 mg, Intravenous, 2 TIMES DAILY, First dose on Mon03/15/16 at 0130, Until Discontinued, Routine Group 2: vancomycin 1.25 g sodium in chloride 0.9% 250 mL (CANCELED)Jump to med 1,250 mg (1.25 g), Intravenous, at 200 mL/hr, EVERY 8 HOURS, First dose (after last modification) on Mon03/21/16 at 0030, Until Discontinued, Maximum infusion rate is 1 gram/hour. If flushing of the face, neck, upper body, arms, and/or back occurs decrease infusion rate by 50% to reduce the severity of symptoms. This medication may have an associated drug lab level. Please see MAR for scheduled level., Routine Group 3: ondansetron (ZOFRAN) tablet 4 mgJump to med 4 mg, Oral, EVERY 8 HOURS PRN, Starting on Mon03/15/16 at 0112, Until Mon03/23/16 at 2024, Nausea, Vomiting, If multiple antiemetics are ordered, use ondansetron first, prochlorperazine second, and metaclopramide third. PO Preferred. If patient unable to take PO, may give IV if ordered. May repeat times one in 45 minutes if ineffective., Routine Or ondansetron (ZOFRAN) injection 4 mgJump to med 4 mg, Intravenous, EVERY 8 HOURS PRN, Starting on Mon03/15/16 at 0112, Until Mon03/23/16 at 2024, Nausea, If multiple antiemetics are ordered, use ondansetron first, prochlorperazine second, and metaclopramide third. May repeat times one in 30 minutes if ineffective Group 4: oxyCODONE (ROXICODONE) immediate release tablet 5 mgJump to med 5 mg, Oral, EVERY 3 HOURS PRN, Starting on Mon03/15/16 at 0915, Until Mon03/23/16 at 2024, Pain, mild to moderate pain (1-6), May give an additional 5 mg in 30 minutes once if pain not relieved. Mild to moderate pain (1-6), Routine Or oxyCODONE (ROXICODONE) immediate release tablet 10 mgJump to med 10 mg, Oral, EVERY 3 HOURS PRN, Starting on Mon03/15/16 at 0915, Until Mon03/23/16 at 2024, Pain, severe pain (7-10), May give an additional 5 mg in 30 minutes once if pain not relieved. Severe pain (7-10), Routine documented in this encounter Care Teams Shuttle Operator Relationship Specialty Start Date End Date Elizabeth Armenta MD [facility] [address] [place] [address] PCP - General 08/22/14 01/12/21 documented as of this encounter
--- OUTSIDE RECORDS SUMMARY | 2023-10-16 15:20 | XMS_ITS | Encounter Summary ---
Author Organization [facility] [place] [address] Care Team Providers Care Derrick Barge Operator Name Role Phone Elizabeth Armenta MD Primary Care Provider [phone] Reason for Visit * Auth/Cert Specialty Diagnoses / Procedures Referred By Contmikaela t Referred To Contact Diagnoses Acoustic neuroma TUMOR N/A Procedures PRO TISSUE GRAFTS, OTHER (E.G. AUTOLOGOUS FAT GRAFT) PRO EXCIS INFRATENT CP ANGLE TUMOR PRO MICROSURG TECHNIQUES, REQ OPER MICROSCOPE TISSUE GRAFT, PARATENON, FAT, DERMIS (OTHER) @CRANIECTOMY, EXC. CEREBELLOPONTINE ANGLE TUMOR MICROSCOPE USE Referral ID Status Reason Start Date Expiration Date Visits Re quested Visits Authorized [id number] 1 1 Encounter Details Date Type Department Care Team (Latest Contact Info) Description 03/03/2016 6:07 AM EST - 03/06/2016 3:34 PM [facility] Hospital Encounter [address] [place] [id number] Henry Chaves MD [facility] [place] [address] Acoustic neuroma; CPA (cerebellopontine angle) tumor Discharge Disposition: Home Social History Tobacco Use [...] Sign Reading Time Taken Comments Blood Pressure 135/82 03/06/2016 10:35 AM EST Pulse 57 03/06/2016 10:35 AM EST Temperature 36.8 ??C (98.2 ??F) 03/06/2016 10:[address] Respiratory Rate 18 03/06/2016 10:35 AM EST Oxygen Saturation 99% 03/06/2016 10:35 AM EST Inhaled Oxygen Concentration - - Weight 64.9 kg (143 lb) 03/03/2016 6:20 AM EST Height 162.6 cm (5' 4) 03/03/2016 6:20 AM EST Body Mass Index 24.55 03/03/2016 6:20 AM EST documented in this encounter Discharge Summaries * Jeanmarie Martinez MD - 03/06/2016 3:28 PM EST Neurosurgery Discharge Summary Patient Name: Latisha Felipe Patient Age: 70 y.o. Birthdate: 1945 Admit date: 03/03/2016 Discharge date and time: 03/06/2016 Attending Physician: Henry Chaves MD Discharge Diagnoses: Right CP/IAC Mass Operations/Major Procedures: Procedure(s) (LRB): TISSUE GRAFT, PARATENON, FAT, DERMIS (OTHER) (N/A) @CRANIECTOMY, EXC. CEREBELLOPONTINE ANGLE TUMOR (Right) MICROSCOPE USE (N/A) @CRANIECTOMY,TRANSTEMPORAL- ACOUSTIC NEUROMA History of Presentation: (From Dr. Chaves' Clinic Note) I am just seeing Ms. Felipe in the Neurosurgery Clinic at the request of Danay Torres for evaluation of a CP angle tumor. Ms. Felipe is a very pleasant 70-year-old female who incidentally noted an acute loss of hearing approximately 15 years ago. She apparently had an MRI here and was told that she may have a viral infection of her hearing nerve because there was a small amount of enhancement. There was mention that she might want to have this followed up because it could possibly be a tumor, but this never occurred. Moving forward, she recently had a dental procedure approximately 2 years ago and immediately after that had lancinating pain that night that subsided on its own. Since then, however, she has had a gradually escalating numbness that first started in the V3 distribution and now has moved up to the V2 distribution on the right side of her face. This ultimately prompted an MRI, and this prompted a referral. She has had no facial weakness that she can note. 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 ?? Her past medical history is pertinent for CLL, but this apparently is stable. She denies any cardiac or pulmonary issues. ?? On examination, she has a slight drooping of her left eyelid, but this seems at baseline. Extraocular motility is intact. She has decreased sensation on the right side subjectively in the V2 and V3 distributions. Tongue, oral and trapezius muscles are all 5/5. ?? Review of her MRI shows a cystic and partially solid lesion in the right CP angle extending into the IAC. This measures a maximal diameter of approximately 3 cm. It causes mild mid brain deformation. Additionally, it looks as though it does abut the undersurface of the trigeminal nerve. ?? I told Ms. 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 We have gone over the options of conservative management, radiation and operative management, and she would like to proceed with the latter. We will have her set up to meet with Dr. Aguilera and acquire any ancillary tests that he may require and otherwise contact her for a surgical date. Hospital Course: Patient was admitted through same day and taken to the operating room with Dr. Chaves and Dr. Aguilera for resection of her Right CP/IAC mass with neuro monitoring. There were no complications during the surgery. She was admitted to the ICU post-op and recovered well. She had very subtle facial asymmetry on exam (HBII). Her post-op recovery was uncomplicated and she had no evidence of a CSF leak. On POD3 she was ready for discharge. She will follow up in 10-14 days after surgery for suture removal, 4-6 weeks for a post-op check and 3 months with an MRI. Important Studies and Lab Data: Labs: Recent Results (from the past 24 hour(s)) Basic Metabolic Panel (non-fasting) Result Value Ref Range Glucose Lvl 159 65 - 199 mg/dL BUN 16 8 - 18 mg/dL Creatinine 0.68 (L) 0.70 - 1.20 mg/dL Sodium 138 135 - 145 mmol/L Potassium 4.1 3.5 - 5.0 mmol/L Chloride 95 (L) 98 - 107 mmol/L CO2 29 22 - 31 mmol/L Anion Gap 14 5 - 15 mmol/L Calcium 9.2 8.5 - 10.5 mg/dL Estimated GFR >60 >=60 Pending Studies and Lab Data: Final Pathology Discharge Condition: Good Discharge to: Home Discharge Medications: Your Medications New Medications Dose Details acetaminophen 325 mg Tab Commonly known as: TYLENOL Take 2 tablets by mouth every 4 hours. 650 mg Quantity: 30 tablet Refills: 1 dexamethasone 1 mg Tab Commonly known as: DECADRON Take 4 tablets by mouth See Admin Instructions. Taper as follows: 4 tab BID x 3d, 2 tab BID x 3d, 1tab BID x 3d, 1 tab daily x 3d, Stop 4 mg Quantity: 45 tablet Refills: 0 famotidine 20 mg Tab Commonly known as: PEPCID Take 1 tablet by mouth every 12 hours. 20 mg Quantity: 30 tablet Refills: 12 oxyCODONE 5 mg Tab Commonly known as: ROXICODONE Take 1 tablet by mouth every 4 hours as needed for Pain. 5 mg Quantity: 30 tablet Refills: 0 polyethylene glycol 17 gram Pwpk Commonly known as: MIRALAX Take 17 g by mouth daily as needed. 17 g Quantity: 14 each Refills: 0 Continued medications, unchanged Dose Details [...] by mouth daily. 1 tablet Refills: 0 Updated Allergies/ADRs: Allergies Allergen Reactions ??? Sulfa (Sulfonamide Antibiotics) Rash HIGH FEVER Follow-up Recommendations for Providers: Please have the patient follow up with Neurosurgery in 4-6 weeks for post-op check. Scheduled Appointments: No future appointments. Instructions Given to Patient at Discharge: Patient Instructions Discharge Instructions Prescription Instructions: [X] Steroids: Decadron You are being discharged home on Decadron(dexamethasone). Decadron is used to reduce tissue swelling in the brain around the tumor location. It should be taken two times a day at 8am and around 2pm. This medication will be gradually reduced every three daysover the next 1 to 2 weeks. If you experience any symptoms during the tapering schedule, please call the nurse practitioner at [phone] or your Neurosurgeon. [X] Proton Pump Inhibitor: Nexium or equivalent You are being sent home on a medication to protect your stomach while you are taking steroids. Onceyou have finished taking the steroids, you may stop this medication. [X] Narcotic Pain Medication: DO NOT use alcohol, drive, or operate heavy machinery while taking these medications. These medications may cause constipation. See diet information below. Call Your Surgeon for: -Fever over 101F -Redness, swelling, increasing pain or milky/watery drainage from/around your wound -Worsening headaches not controlled with your pain medication -Drowsiness/mental confusion -Unsteadiness when walking/new weakness -New visual changes -Nausea/vomiting(upset stomach) not controlled with your anti-nausea medication -Slurred speech -Convulsions/seizures -Pain not relieved with discharge pain medication -Deep Vein Thrombosis (DVT): This is a blood clot that develops in a deep vein, usually in the leg.It can lead to serious complications if a piece of the clot breaks off and travels to the lungs. Symptoms of a DVT include: -Swelling of the leg -Warmth/redness of the leg -Chest pain or shortness of breath -Pain in the leg, which can be worse when standing or walking If you develop any of these symptoms, please call your doctor immediately! To help prevent a DVT: -Exercise regularly. Walking, at least several times daily, is helpful. -Ankle pump exercises (like pressing and releasing the gas pedal) should be done regularly. -Keep hydrated with water or other clear liquids (coffee/Teas/Dc can dehydrate you). -Avoid alcohol and crossing your legs. -Remember not to sit or lay in bed, while awake, for prolonged amounts of time without moving your legs about every 15 minutes. Wound Care: -Keep incisional site clean and dry. You can remove your dressing 2 days after surgery. -You may shower and shampoo incisional site, per your usual routine, 4 days after surgery. -Sutures/Anamosa are to be removed in 10 to 14 days after surgery. You can return to the Neurosurgery Clinic for removal. See Follow-up appointments below. Diet: -Eat a well-balanced diet. Fresh fruits, vegetables and fiber-containing foods are recommended. This is necessary for your wound to heal. -If you experience constipation (difficulty with hard stools), prune juice or prunes, stool softeners (such as Colace), or mild laxatives, (such as Sennakot or Milk of Magnesia), may be used as needed. These lhnf-qyw-xnjtews (OTC) medications are available at your pharmacy without a prescription. Call the neurosurgery METAL COATER interior design consultant if you have questions. Activity: -You are encouraged to walk at least several times a day. Start slowly and gradually increase your distance. This will improve your breathing status and circulation after surgery. -You may tire easily, so frequent rest periods may be necessary. -Do not lift more than 3-5 pounds. Restrict other strenuous activity (such as running, jumping, jogging, vacuuming, shoveling, etc). You will be advised at your follow-up appointment when you may resume these activities. Follow-up Appointments: [X] Please follow-up in the Neurosurgery Clinic with in 4-6 weeks. Please call the Neurosurgery Office if you do not receive a scheduled appointment. [x] Please follow-up for suture/staple removal in 10-14 days. [] With your Primary Care Provider [x] With the Neurosurgery METAL COATER/RN IMPORTANT PHONE NUMBERS: Outpatient Nurse (Pat Mcgowan) Inpatient Nurses Neurosurgical Resident Contractor General Building (after 5pm or before 8am) Neurosurgery offices (between 8am-5pm): Dr. Kelly [address]. [place]: Pediatric Patients , Adult Patients Dr. Chaves Dr. Jones Dr. Stevens Dr. Stoll Quang Lakhani, Physician Rubber Tester Caryl Young, Nurse Practitioner Quang Armas, Physician Rubber Tester Deidra Estrada, Nurse Practitioner * Your surgeon may not be call center consultant, so be ready to tell about yourself and your surgery when you call, especially after hours or on the weekend. CC: Elizabeth Armenta MD General Instructions None Scheduled Appointments and VNA instructions: Future Appointments and Orders Future Orders Complete By Expires MRI Brain With/WO Contrast (GENERIC) [[id number] Custom] 03/07/2016 (Approximate) 03/06/2017 Process Instructions: Scheduling Instructions: Questions: Where will study be performed?: [facility] Reason for exam and clinical history: s/p resection acoustic neuroma, 3-month imaging Other pertinent information: Stat read required?: Does patient require sedation?: GA rationale: Date of injury if applicable: Requested Time: Primary Care Doctor: Elizabeth Armenta MD [phone] Signed: JEANMARIE MARTINEZ MD 03/06/2016 documented in this encounter Discharge Instructions * Patient Instructions* Jeanmarie Martinez MD - 03/06/2016 8:20 AM EST Discharge Instructions Prescription Instructions: [X] Steroids: Decadron You are being discharged home on Decadron(dexamethasone). Decadron is used to reduce tissue swelling in the brain around the tumor location. It should be taken two times a day at 8am and around 2pm. This medication will be gradually reduced every three daysover the next 1 to 2 weeks. If you experience any symptoms during the tapering schedule, please call the nurse practitioner at [phone] or your Neurosurgeon. [X] Proton Pump Inhibitor: Nexium or equivalent You are being sent home on a medication to protect your stomach while you are taking steroids. Onceyou have finished taking the steroids, you may stop this medication. [X] Narcotic Pain Medication: DO NOT use alcohol, drive, or operate heavy machinery while taking these medications. These medications may cause constipation. See diet information below. Call Your Surgeon for: -Fever over 101F -Redness, swelling, increasing pain or milky/watery drainage from/around your wound -Worsening headaches not controlled with your pain medication -Drowsiness/mental confusion -Unsteadiness when walking/new weakness -New visual changes -Nausea/vomiting(upset stomach) not controlled with your anti-nausea medication -Slurred speech -Convulsions/seizures -Pain not relieved with discharge pain medication -Deep Vein Thrombosis (DVT): This is a blood clot that develops in a deep vein, usually in the leg.It can lead to serious complications if a piece of the clot breaks off and travels to the lungs. Symptoms of a DVT include: -Swelling of the leg -Warmth/redness of the leg -Chest pain or shortness of breath -Pain in the leg, which can be worse when standing or walking If you develop any of these symptoms, please call your doctor immediately! To help prevent a DVT: -Exercise regularly. Walking, at least several times daily, is helpful. -Ankle pump exercises (like pressing and releasing the gas pedal) should be done regularly. -Keep hydrated with water or other clear liquids (coffee/Teas/Dc can dehydrate you). -Avoid alcohol and crossing your legs. -Remember not to sit or lay in bed, while awake, for prolonged amounts of time without moving your legs about every 15 minutes. Wound Care: -Keep incisional site clean and dry. You can remove your dressing 2 days after surgery. -You may shower and shampoo incisional site, per your usual routine, 4 days after surgery. -Sutures/Anamosa are to be removed in 10 to 14 days after surgery. You can return to the Neurosurgery Clinic for removal. See Follow-up appointments below. Diet: -Eat a well-balanced diet. Fresh fruits, vegetables and fiber-containing foods are recommended. This is necessary for your wound to heal. -If you experience constipation (difficulty with hard stools), prune juice or prunes, stool softeners (such as Colace), or mild laxatives, (such as Sennakot or Milk of Magnesia), may be used as needed. These olmu-din-qbvqmez (OTC) medications are available at your pharmacy without a prescription. Call the neurosurgery METAL [employer]ATER interior design consultant if you have questions. Activity: -You are encouraged to walk at least several times a day. Start slowly and gradually increase your distance. This will improve your breathing status and circulation after surgery. -You may tire easily, so frequent rest periods may be necessary. -Do not lift more than 3-5 pounds. Restrict other strenuous activity (such as running, jumping, jogging, vacuuming, shoveling, etc). You will be advised at your follow-up appointment when you may resume these activities. Follow-up Appointments: [X] Please follow-up in the Neurosurgery Clinic with in 4-6 weeks. Please call the Neurosurgery Office if you do not receive a scheduled appointment. [x] Please follow-up for suture/staple removal in 10-14 days. [] With your Primary Care Provider [x] With the Neurosurgery METAL COATER/RN IMPORTANT PHONE NUMBERS: Outpatient Nurse (Pat Mcgowan) Inpatient Nurses Neurosurgical Resident Contractor General Building (after 5pm or before 8am) Neurosurgery offices (between 8am-5pm): Dr. Kelly Dr. [place]: Pediatric Patients , Adult Patients Dr. Chaves Dr. Jones Dr. Stevens Dr. Stoll Qunag Lakhani, Physician Rubber Tester Caryl Young, Nurse Practitioner Quang Armas, Physician Rubber Tester Deidra Estrada, Nurse Practitioner * Your surgeon may not be call center consultant, so be ready to tell about yourself and your surgery when you call, especially after hours or on the weekend. CC: Elizabeth Armenta MD documented in this [...] as of this encounter Progress Notes * Lissett Montilla RN - 03/06/2016 3:06 PM EST [place] with her family. All belongings sent with patient. IVAs removed, incision dressing CDI, skin free from pressure ulcers. Discharge instructions, medications, and follow-up appointments reviewed, education provided on wound care and DVT prevention/signs and symptoms, paper prescriptions given to patient, all questions answered. Patient instructed to call the neurosurgery clinic with concerns. * Christina Mcgarry DT - 03/06/2016 1:43 PM EST Nutrition Services - Initial Note Latisha Felipe : 1945 AGE: 70 y.o. Patient Active Problem List Diagnosis Date Noted ??? Hospital-Acoustic neuroma 02/02/2016 ??? CPA (cerebellopontine angle) tumor 10/13/2015 Reason for Nutrition Intervention: Patient Admitted to ICU Diet Order: Regular Appetite: Good Food allergies: NKFA Ht Readings from Last 3 Encounters: 03/03/16 162.6 cm (5' 4) 12/04/15 162.6 cm (5' 4) 10/13/15 162.6 cm (5' 4) Wt Readings from Last 3 Encounters: 03/03/16 64.9 kg (143 lb) 12/04/15 64.4 kg (142 lb) 10/13/15 65.9 kg (145 lb 3.2 oz) Body mass index is 24.55 kg/(m^2). Assessment: Patient denies need for nutrition education due to possible discharge later this afternoon. Encouraged patient to contact Food and Nutrition services with any questions that may arise. Nutrition Plan: Continue current diet. Monitor weight. Encourage good po intake. Support and encouragement provided. Nutrition services to follow weekly thru hospital course unless consulted in the interim. TINA Powers * Eldon Helton MD - 03/06/2016 1:31 PM EST OTOLARYNGOLOGY - HEAD & NECK SURGERY DAILY PROGRESS NOTE Name: Latisha Felipe Age/Sex: 70 y.o. female Attending: Henry Chaves MD Hospital Day: 4 3 Days Post-Op Patient ID/Reason for Admission s/p Right retrosigmoid crani- for resection of vestibular schwannoma Interval History No events overnight No complaints this AM, denies dizziness Vitals Last value 24hr Range Temperature: 36.8 ??C (98.2 ??F) Temp: [36.5 ??C (97.7 ??F)-36.9 ??C (98.4 ??F)] Heart Rate: 57 Heart Rate: [55-65] Blood Pressure: 135/82 BP: (135-167)/(78-97) Respiratory Rate: 18 Resp: [15-18] SpO2: 99 % SpO2: [95 %-99 %] Intake & Output Intake/Output Summary (Last 24 hours) at 03/06/16 1331 Last data filed at 03/06/16 1208 Gross per 24 hour Intake 980 ml Output 1752 ml Net -772 ml Physical Exam General: NAD, non-ill appearing Face: Sensation intact throughout trigeminal distribution b/l. Mild loss of sensation in right V1 Eyes: EOMI, conjunctiva healthy, 1 degree nystagmus Ears: L ear without lesions, bandage over right ear in place Nose: Patent nares, grossly normal appearance Oral Cavity/Pharynx: Mucosa is pink, oropharynx symmetric, tongue midline Neck: Soft, trachea midline Chest: LCTAB RRR Neuro: Alert & oriented, moving extremities x 4, HB II Labs Recent Labs 03/06/16 0456 03/05/16 0630 03/04/16 0055 WBC -- -- 22.9* HGB -- -- 11.5* HCT -- -- 34.1* PLATELET -- -- 155 NA 138 136 139 K 4.1 4.0 3.6 CL 95* 96* 102 CO2 29 29 24 BUN 16 14 15 CREATININE 0.68* 0.71 0.74 GLUCOSE 159 151 146 CALCIUM 9.2 8.7 8.2* ASSESSMENT & PLAN Latisha Felipe is a 70 y.o. female s/p right retrosigmoid crani for resection of vestibular schwannoma, 3 Days Post-Op. -Removed mastoid dressing -OK to discharge from ENT standpoint -The rest of care per primary team -The ENT team will continue to see this patient daily. Please page with any questions. __ ELDON HELTON MD, PGY2 03/06/16 1:31 PM * Yaya Ware MD - 03/06/2016 6:32 AM EST NEUROSURGERY PROGRESS NOTE POD 3 ID: 70 y/o female s/p R retrosigmoid crani- for resection of vestibular schwannoma INTERVAL Hx: - No acute issues - Neurologically stable MEDICATIONS: Scheduled Meds: ??? scopolamine 1 patch Transdermal Q72H And ??? Patch Verification 1 patch Transdermal BID And ??? scopolamine 1 patch Transdermal Q72H ??? amLODIPine 10 mg Oral Daily ??? FLUoxetine 20 mg Oral Daily ??? dexamethasone 4 mg Oral Q6H ??? famotidine 20 mg Oral Q12H ??? losartan 100 mg Oral Daily ??? hydroCHLOROthiazide 25 mg Oral Daily ??? acetaminophen 650 mg Oral Q4H KYLER Continuous Infusions: EXAM: Temp: [36.4 ??C (97.5 ??F)-36.9 ??C (98.4 ??F)] Heart Rate: [55-70] Resp: [15-18] BP: (141-167)/(70-97) SpO2: [94 %-98 %] Heart Rate from SPO2: -- GEN:NAD HEENT: Dressings c/d/i NEURO:AA+Ox3 Speech fluent and appropriate. Naming and repetition intact. PERRL. EOMI. VFF LT sensation intact throughout trigeminal distribution b/l. Present but mild decrease in R V1/V2. Corneal present Subtle R facial asymmetry (HB II) Tongue midline MOTOR: RUE:5/5 LUE:5/5 RLE: 5/5 LLE: 5/5 No pronator drift LT sensation intact x 4 Lab Results Component Value Date/Time WBC 22.9 (H) 03/04/2016 12:55 AM HGB 11.5 (L) 03/04/2016 12:55 AM PLATELET 155 03/04/2016 12:55 AM Lab Results Component Value Date/Time NA 138 03/06/2016 04:56 AM K 4.1 03/06/2016 04:56 AM CL 95 (L) 03/06/2016 04:56 AM CO2 29 03/06/2016 04:56 AM BUN 16 03/06/2016 04:56 AM CREATININE 0.68 (L) 03/06/2016 04:56 AM A/P: 70 y/o female s/p suboccipital crani- for resection of vestibular schwannoma. Neurologically stable post-op. - Neurologic monitoring Q4 - c/w dexamethasone - Elevate HOB > 30 - will obtain post-op MR at 3 month f/u per routine - pain is well controlled - Hemodynamically stable - No respiratory issues - GI prophylaxis - ADAT - Monitor electrolytes for hyponatremia - HLIVF - No anticoagulation - Mobilize * Eldon Helton MD - 03/05/2016 10:57 AM EST OTOLARYNGOLOGY - HEAD & NECK SURGERY DAILY PROGRESS NOTE Name: Latisha Felipe Age/Sex: 70 y.o. female Attending: Henry Chaves MD Hospital Day: 3 2 Days Post-Op Patient ID/Reason for Admission s/p Right retrosigmoid crani- for resection of vestibular schwannoma Interval History No events overnight No complaints this AM, denies dizziness Vitals Last value 24hr Range Temperature: 36.8 ??C (98.2 ??F) Temp: [36.5 ??C (97.7 ??F)-37.3 ??C (99.1 ??F)] Heart Rate: 70 Heart Rate: [60-70] Blood Pressure: 149/76 BP: (144-164)/(70-80) Respiratory Rate: 18 Resp: [16-22] SpO2: 94 % SpO2: [92 %-95 %] Intake & Output Intake/Output Summary (Last 24 hours) at 03/05/16 1058 Last data filed at 03/05/16 0939 Gross per 24 hour Intake 1650 ml Output 2475 ml Net -825 ml Physical Exam General: NAD, non-ill appearing Face: Sensation intact throughout trigeminal distribution b/l. Mild loss of sensation in right V1 Eyes: EOMI, conjunctiva healthy, 1 degree nystagmus Ears: L ear without lesions, bandage over right ear in place Nose: Patent nares, grossly normal appearance Oral Cavity/Pharynx: Mucosa is pink, oropharynx symmetric, tongue midline Neck: Soft, trachea midline Chest: LCTAB RRR Neuro: Alert & oriented, moving extremities x 4, HB II Labs Recent Labs 03/05/16 0630 03/04/16 0055 WBC -- 22.9* HGB -- 11.5* HCT -- 34.1* PLATELET -- 155 NA 136 139 K 4.0 3.6 CL 96* 102 CO2 29 24 BUN 14 15 CREATININE 0.71 0.74 GLUCOSE 151 146 CALCIUM 8.7 8.2* ASSESSMENT & PLAN Latisha Felipe is a 70 y.o. female s/p right retrosigmoid crani for resection of vestibular schwannoma, 2 Days Post-Op. -continue Q4 neurochecks -Right V1 decrease in sensation stable from previous several months per pt -OOB today -The rest of care per primary team -The ENT team will continue to see this patient daily. Please page with any questions. __ ELDON HELTON MD, PGY2 03/05/16 10:58 AM * Yaya Ware MD - 03/05/2016 7:59 AM EST NEUROSURGERY PROGRESS NOTE POD 2 ID: 70 y/o female s/p R retrosigmoid crani- for resection of vestibular schwannoma INTERVAL Hx: - No acute issues - Neurologically stable MEDICATIONS: Scheduled Meds: ??? scopolamine 1 patch Transdermal Q72H And ??? Patch Verification 1 patch Transdermal BID And ??? [START ON 03/06/2016] scopolamine 1 patch Transdermal Q72H ??? amLODIPine 10 mg Oral Daily ??? FLUoxetine 20 mg Oral Daily ??? dexamethasone 4 mg Oral Q6H ??? famotidine 20 mg Oral Q12H ??? losartan 100 mg Oral Daily ??? hydroCHLOROthiazide 25 mg Oral Daily ??? acetaminophen 650 mg Oral Q4H KYLER Continuous Infusions: EXAM: Temp: [36.5 ??C (97.7 ??F)-37.3 ??C (99.1 ??F)] Heart Rate: [60-70] Resp: [16-22] BP: (144-164)/(70-80) SpO2: [92 %-95 %] Heart Rate from SPO2: -- GEN:NAD HEENT: Dressings c/d/i NEURO:AA+Ox3 Speech fluent and appropriate. Naming and repetition intact. PERRL. EOMI. VFF LT sensation intact throughout trigeminal distribution b/l. Present but mild decrease in R V1/V2. Corneal present Subtle R facial asymmetry (HB II) Tongue midline MOTOR: RUE:5/5 LUE:5/5 RLE: 5/5 LLE: 5/5 No pronator drift LT sensation intact x 4 Lab Results Component Value Date/Time WBC 22.9 (H) 03/04/2016 12:55 AM HGB 11.5 (L) 03/04/2016 12:55 AM PLATELET 155 03/04/2016 12:55 AM Lab Results Component Value Date/Time NA 136 03/05/2016 06:30 AM K 4.0 03/05/2016 06:30 AM CL 96 (L) 03/05/2016 06:30 AM CO2 29 03/05/2016 06:30 AM BUN 14 03/05/2016 06:30 AM CREATININE 0.71 03/05/2016 06:30 AM A/P: 70 y/o female s/p suboccipital crani- for resection of vestibular schwannoma. Neurologically stable post-op. - Neurologic monitoring Q4 - c/w dexamethasone - Elevate HOB > 30 - will obtain post-op MR at 3 month f/u per routine - pain is well controlled - Hemodynamically stable - No respiratory issues - GI prophylaxis - ADAT - Monitor electrolytes for hyponatremia - HLIVF - No anticoagulation - Mobilize * Minna Mattson, RN - 03/04/2016 6:15 PM EST Latisha Felipe arrived to 503A @ 1700 from ICU. Oriented to room, call bautista within reach, educated on importance of using prior to getting OOB, AVSS, incision PATRICIA dressing in place, belongings updated in eDH, bed locked in low position, purposeful hourly rounding, bed/chair alarm on, room near nurses station. RAFAEL * Elizabeth Sapp - 03/04/2016 11:00 AM EST Motor Scooter Repairer Encounter Note Patient Name: Latisha Felipe : [id number] MR#: [id number] Admit Date: 03/03/2016 6:07 AM Hospital Day 1 day Narrative: Initiated visit on rounds. Pt was awake and alert resting quietly in bed, receptive to visit. Assessment: Pt was lying in bed awake and alert and receptive to visit. She expressed feeling good after surgery and explained condition. She shared she had no muslim but had a strong perla in God, who shefelt was part of her and everyone and just a fact of life. Inquired about this chief underwriter's perla tr adition and was engaging and interested in conversation but expressed apology for feeling sleepy asa sedative was taking effect. She expressed appreciation for the visit and any return visits. Intervention and Outcome: Provided conversation and listening presence. Follow-up: [place] available on request, pager #[phone] Time in Direct Care: <5min Elizabeth Sapp 03/04/2016 * Tato Espitia Jr., MD - 03/04/2016 8:42 AM EST OTOLARYNGOLOGY - HEAD & NECK SURGERY DAILY PROGRESS NOTE Name: Latisha Felipe Age/Sex: 70 y.o. female Attending: Henry Chaves MD Hospital Day: 2 1 Day Post-Op Patient ID/Reason for Admission s/p Right retrosigmoid crani- for resection of vestibular schwannoma Interval History No events overnight No complaints this AM, denies dizziness Vitals Last value 24hr Range Temperature: 37 ??C (98.6 ??F) Temp: [36.8 ??C (98.2 ??F)-37.2 ??C (99 ??F)] Heart Rate: 72 Heart Rate: [62-77] Blood Pressure: 154/77 BP: -- Respiratory Rate: 21 Resp: [14-29] SpO2: 96 % SpO2: [92 %-99 %] Intake & Output Intake/Output Summary (Last 24 hours) at 03/04/16 0843 Last data filed at 03/04/16 0600 Gross per 24 hour Intake 3222 ml Output 1300 ml Net 1922 ml Physical Exam General: NAD, non-ill appearing Face: Sensation intact throughout trigeminal distribution b/l. Mild loss of sensation in right V1 Eyes: EOMI, conjunctiva healthy, 3 degrees of nystagmus right gaze greater than left or superior Ears: L ear without lesions, bandage over right ear in place Nose: Patent nares, grossly normal appearance Oral Cavity/Pharynx: Mucosa is pink, oropharynx symmetric, tongue midline Neck: Soft, trachea midline Chest: LCTAB RRR Neuro: Alert & oriented, moving extremities x 4 Labs Recent Labs 03/04/16 0055 WBC 22.9* HGB 11.5* HCT 34.1* PLATELET 155 NA 139 K 3.6 CL 102 CO2 24 BUN 15 CREATININE 0.74 GLUCOSE 146 CALCIUM 8.2* Imaging *Personally reviewed and evaluated ASSESSMENT & PLAN Latisha Felipe is a 70 y.o. female s/p right retrosigmoid crani for resection of vestibular schwannoma, 1 Day Post-Op. -continue Q4 neurochecks, OK for floor -Right V1 decrease in sensation stable from previous several months per pt -OOB today -The rest of care per primary team -The ENT team will continue to see this patient daily. Please page with any questions. __ Tato Espitia Jr, MD, PGY1 03/04/16 8:43 AM * QuintanillaJarrod T - 03/04/2016 7:01 AM EST NEUROSURGERY PROGRESS NOTE POD 1 ID: 70 y/o female s/p R retrosigmoid crani- for resection of vestibular schwannoma INTERVAL Hx: - No acute issues - Neurologically stable - pain is well controlled MEDICATIONS: Scheduled Meds: ??? scopolamine 1 patch Transdermal Q72H And ??? Patch Verification 1 patch Transdermal BID And ??? [START ON 03/06/2016] scopolamine 1 patch Transdermal Q72H ??? amLODIPine 10 mg Oral Daily ??? FLUoxetine 20 mg Oral Daily ??? sodium chloride 0.9 % 5 mL Intravenous BID ??? dexamethasone 4 mg Intravenous Q6H Or ??? dexamethasone 4 mg Oral Q6H ??? ceFAZolin 1 g Intravenous Q8H ??? famotidine 20 mg Oral Q12H Or ??? famotidine 20 mg Intravenous Q12H ??? losartan 100 mg Oral Daily ??? hydroCHLOROthiazide 25 mg Oral Daily ??? chlorhexidine 15 mL Oral 2 times per day ??? acetaminophen 650 mg Oral Q4H KYLER Or ??? acetaminophen 650 mg Rectal Q4H KYLER Continuous Infusions: ??? sodium chloride 0.9% with potassium chloride 20 mEq 75 mL/hr (03/04/16 0539) ??? niCARdipine EXAM: Temp: [36.8 ??C (98.2 ??F)-37.2 ??C (99 ??F)] Heart Rate: [62-77] Resp: [14-29] BP: -- SpO2: [92 %-99 %] Heart Rate from SPO2: -- GEN:NAD HEENT: Dressings c/d/i NEURO:AA+Ox3 Speech fluent and appropriate. Naming and repetition intact. PERRL. EOMI. VFF LT sensation intact throughout trigeminal distribution b/l. Present but mild decrease in R V1/V2. Corneal present Subtle R facial asymmetry (HB II) Tongue midline MOTOR: RUE:5/5 LUE:5/5 RLE: 5/5 LLE: 5/5 No pronator drift LT sensation intact x 4 Lab Results Component Value Date/Time WBC 22.9 (H) 03/04/2016 12:55 AM HGB 11.5 (L) 03/04/2016 12:55 AM PLATELET 155 03/04/2016 12:55 AM Lab Results Component Value Date/Time NA 139 03/04/2016 12:55 AM K 3.6 03/04/2016 12:55 AM CL 102 03/04/2016 12:55 AM CO2 24 03/04/2016 12:55 AM BUN 15 03/04/2016 12:55 AM CREATININE 0.74 03/04/2016 12:55 AM A/P: 70 y/o female s/p suboccipital crani- for resection of vestibular schwannoma. Neurologically stable post-op. - Neurologic monitoring Q4 - c/w dexamethasone - Elevate HOB > 30 - will obtain post-op MR at 3 month f/u per routine - pain is well controlled - Hemodynamically stable - No respiratory issues - GI prophylaxis - ADAT - Monitor electrolytes for hyponatremia - HLIVF - No anticoagulation - cefazolin x 24 hrs for perioperative prophylaxis - Mobilize - Transfer to * Tato Espitia Jr., MD - 03/03/2016 5:11 PM EST OTOLARYNGOLOGY - HEAD & NECK SURGERY POST OP CHECK Name: Latisha Felipe Age/Sex: 70 y.o. female Attending: Henry Chaves MD Hospital Day: 1 Day of Surgery Interval History Surgery: Procedure(s): TISSUE GRAFT, PARATENON, FAT, DERMIS (OTHER) @CRANIECTOMY, EXC. CEREBELLOPONTINE ANGLE TUMOR MICROSCOPE USE @CRANIECTOMY,TRANSTEMPORAL- ACOUSTIC NEUROMA Subjective/Events: Patient denies fever, chills, chest pain, shortness of breath, dizziness, headache, abdominal pain, nausea, vomiting, numbness, tingling. Pain well-controlled. Vitals Last value 24hr Range Temperature: 37 ??C (98.6 ??F) Temp: [36.6 ??C (97.9 ??F)-37 ??C (98.6 ??F)] Heart Rate: 73 Heart Rate: [66-87] Blood Pressure: 154/77 BP: (154)/(77) Respiratory Rate: 24 Resp: [15-29] SpO2: 96 % SpO2: [95 %-99 %] Intake & Output I/O this shift: In: 2074 [I.V.:2074] Out: 600 [Urine:500; Blood:100] Physical Exam General: NAD, non-ill appearing Face: Symmetric without dysmorphic features, cranial nerves II-XII grossly intact Eyes: EOMI, conjunctiva healthy, 3 degrees of nystagmus right gaze greater than left or superior Ears: bandage over right ear with minimal blood soaked through, Nose: Patent nares, grossly normal appearance Oral Cavity/Pharynx: Mucosa is pink, oropharynx symmetric Neck: Soft, trachea midline Cardiopulm: CTAB, RRR Neuro: Alert & oriented, moving extremities x 4 Labs No results for input(s): WBC, HGB, HCT, PLATELET, PT, INR, PTT, NA, K, CL, CO2, BUN, CREATININE, GLUCOSE, CALCIUM, MAGNESIUM, PHOS in the last 72 hours. Imaging *Personally reviewed and evaluated ASSESSMENT & PLAN Latisha Felipe is a 70 y.o. female s/p Procedure(s): TISSUE GRAFT, PARATENON, FAT, DERMIS (OTHER) @CRANIECTOMY, EXC. CEREBELLOPONTINE ANGLE TUMOR MICROSCOPE USE @CRANIECTOMY,TRANSTEMPORAL- ACOUSTIC NEUROMA. Patient is doing well postoperatively. Continue with current care plan. __ Tato Espitia Jr, MD, PGY1 03/03/16 5:11 PM * QuintanillaJarrod T - 03/03/2016 7:26 AM EST 24-HOUR UPDATE Latisha Felipe was seen in SDP. No interval events or changes in health status since preoperative H+P (see EPIC). Denies angina/dyspnea/fevers or malaise within the last 14 days. All questions were answered. Stable for surgery as scheduled. PERRL. EOMI Decreased sensation in R V2/V3. Corneal present Symmetric smile documented in this encounter H&P Notes * Chandra Onofre MD - 03/03/2016 1:58 PM EST Critical Care Service Admission History of Present Illness Patient: Latisha Felipe Date: 03/03/2016 Attending: Braydon History of Present Illness: Latisha Felipe ( ) is a 70 y.o. female with a 70 year old with treated HTN presents for excision of acoustic neuroma right side.They were taken to the OR with neurosurgery for excision. She is admitted to the ICU extubated and hemodynamically stable. Shewill remain here for q1h neuro checks. Review of Systems: General: Denies fevers/chills, excessive fatigue, night sweats HEENT: Denies vision changes, hearing loss, runny nose, sore throat Cardiovascular: Denies chest pain, palpitations Respiratory: Denies SOB, dyspnea on exertion, cough GI: Denies nausea, vomiting, abdominal pain, diarrhea, constipation : Denies dysuria, hematuria, frequency MSK: Denies muscle pain, joint pain Endo: Denies cold intolerance, heat intolerance, weight changes Neuro: Mild right sided headached Psychiatric: Denies depression, hallucinations Past Medical History: Mild asthma, well controlled. Infrequent inhaler use Past Surgical History: Past Surgical History Procedure Laterality Date ??? Pro endoscopic us exam, bowenoph N/A 02/09/2016 UPPER EUS- ENDOSCOPIC ULTRASOUND performed by Rigoberto Angel MD at [facility] END[facility]COPY Allergies: Allergies Allergen Reactions ??? Sulfa (Sulfonamide Antibiotics) Rash HIGH FEVER Home Medications: Prescriptions Prior to Admission Medication Sig Dispense Refill Last Dose ??? FLUoxetine (PROZAC) 20 mg Tablet Take [...] daily. Past Week at Unknown time ??? albuterol (PROVENTIL HFA;VENTOLIN HFA;PROAIR) 90 mcg/actuation HFA Aerosol Inhaler Inhale 2 puffs into the lungs every 4 hours as needed for Wheezing. Use with spacer More than a month at Unknowntime Family History: No family history on file. Social History: Social History Social History ??? Marital status: [...] ??? Not on file Social History Narrative Vitals: Last value Range last 24 hrs Temperature Temp: 36.6 ??C (97.9 ??F) Temp: [36.6 ??C (97.9 ??F)] Heart Rate Heart Rate: 87 Heart Rate: [87] Cuff BP BP: 154/77 BP: (154)/(77) Arterial BP BP (Arterial Line): -- CVP CVP: -- Respiratory Rate Resp: 18 Resp: [18] SpO2 SpO2: 97 % SpO2: [97 %] ABG: Recent Labs 03/03/16 1203 03/03/16 0844 PHART 7.46* 7.44 [id number] 34* 36 PO2ART 180* 341* [id number] 23.5 24.0 Physical Exam: General: Resting comfortably in bed, NAD. HEENT: EOMI, MM. PERRLA. Cranium bandaged. CV: rhythm and rate regular, clear S1/S2, no m/r/g Resp: Non-labored breathing, CTAB Abd: Soft, +BS, nttp, no guarding/rebound Ext: Warm and well perfused, no peripheral edema, no joint swelling/pain Neuro: AAOx3, follows commands readily. Decreased sensation on the right side subjectively in the V2 and V3 distributions. Labs: No results for input(s): WBC, HGB, HCT, PLATELET in the last 168 hours. No results for input(s): PT, PTT, INR in the last 168 hours. No results for input(s): NA, K, CL, CO2, BUN, CREATININE, GLUCOSE in the last 168 hours. No results for input(s): CALCIUM, MAGNESIUM, PHOS in the last 168 hours. No results for input(s): AST, ALT, ALKPHOS, BILITOT, BILIDIR, AMYLASE, LIPASE in the last 168 hours. Recent Labs 03/03/16 1203 03/03/16 0844 PHART 7.46* 7.44 [id number] 34* 36 PO2ART 180* 341* BEART -0.3 -0.1 Imaging/Other Studies: - no new imaging Assessment: Latisha Felipe is a 70 y.o. female s/p crani for acoustic neuroma admitted to the ICU for q1h neuro checks. Plan: Neuro: - Pain: scheduled tylenol - Neuro checks: q1h - Keppra BID CV: - Goal SBP/MAP: SBP <140 - PRN hydralazine and labetalol Pulm: - no issues FEN/GI/: - Diet: NPO diet (Give Meds). - NBOs - Stress ulcer prophylaxis: protonix Heme/ID: - H/H stable, will continue to trend - Abx: MSK: - no active issues. Endo: - no active issues. DVT PPx: - DVT prophylaxis: Mechanical compression Activity: - as tolerated L/D/A: - A-Line - Duran Primary Service: - Neurosurgery Code Status: - Full Code Dispo: - ICU level of care, admit to Critical Care Red 2 CHANDRA ONOFRE MD 03/03/2016 Associated attestation - Tanya Bryson MD - 03/03/2016 4:23 PM EST History and chart reviewed. Patient seen and examined with Dr. Onofre. Plan formulated with Dr. Onofre. Agree with excellent note as written. Exam: Gen: Awake, AOx3 HEENT: Dressing c/d/i, PERRL CV: RRR Resp: CTAB Abd: Soft, NT, ND Ext: warm, well perfused Neuro: 5/5 strength UE, LE bilat, following commands Plan summary: q1h neuro checks keppra seizure prophylaxis Analgesia with PRN tylenol and oxycodone SBP < 140 PRN hydralazine and labetalol Protonix and SCDs for prophylaxis Tanya Bryson MD * Tanya Aguilera MD - 03/03/2016 7:39 AM EST No interval change in health documented in this encounter Procedure Notes * Carlos Parra MD - 03/03/2016 3:34 PM EST NEURODIAGNOSTIC LABORATORY [facility] INTRAOPERATIVE MONITORING REPORT Name: Latisha Felipe MR# [id number] 1945 Date of Surgery: 03/03/2016 Surgeon(s): Henry Chaves MD, Tanya Aguilera MD, Jarrod Quintanilla MD Surgical Procedure: Resection of right CPA tumor Monitoring Procedure: Free running and monopolar (Prass) stimulated EMG of the right-sided temporalis, masseter, frontalis, orbicularis oculi, orbicularis tony, mentalis and trapezius muscles; bilateral upper extremity SSEPs; transcranial motor evoked potentials (tcMEPs) to assess facial nerve integrity and upper extremity motor function; scalp EEG; peripheral motor conduction testing on the ulnar nerve using CMAP pickup from the ipsilateral first dorsal interosseous muscle. CPT Codes: 58783 (EEG), 24930 (CN EMG unilateral 9 muscles), 85133 (tcMEP upper extremity), 70634 (upper extremity SSEP bilateral), 76958 (IOM, 5 units), 36267 (IOM, 4 hours), Total IOM time: 5 hours, 11 minutes. Intraoperative neurophysiologic monitoring was performed for a total duration of 5 hours and 11 minutes. 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 There was mention that she may want this followed up due to the possibility it is a tumor, but this did not happen. Over the last 2 years she has had gradually escalating numbness in theV3 distribution and now has moved up to the V2 distribution on the right side of her face. Monitoring Team: Carlos Parra MD/PhD, Christina Song EEG/EP T., CNIM, CLTM Anesthesia: TIVA using propofol and narcotic with no muscle relaxant after intubation. Report: Following anesthesia and prior to surgical incision, needle electrode pairs were placed in the aforementioned muscles to facilitate EMG-based monitoring of right-sided cranial nerves V, VII and XI, as well as the first dorsal interosseous muscle bilaterally. Peripheral motor conduction testing was done via stimulation leads placed over the ulnar nerves with pickup from the first dorsal interosseous muscles. Surface needle electrodes were also placed at appropriate locations on the scalp to record SSEPs from the aforementioned ulnar nerve stimulating leads. Finally, stimulating leads were placed at scalp locations M3 (1 cm anterior to C3) and Mz (1 cm anterior to Cz) to elicit tcMEPs for facial nerve monitoring purposes. Counts were kept of all needles and other items attached to the patient for monitoring, and all were accounted for and disposed of at the conclusion of the surgery. At baseline and prior to incision, upper extremity SSEPs were within normal limits bilaterally, andreproducible multi-pulse tcMEPs were readily elicited in the right orbicularis tony, and mentalis muscles. Peripheral motor conduction testing at baseline indicated adequate peripheral conduction andvalidated subsequent EMG-based monitoring. The patient???s SSEPs and tcMEPs were stable up until closing, when monitoring was suspended. The EMG demonstrated spontaneous neurotonic activity in mentalis and trapezius at baseline and closing, and showed several periods of discharge in all of the monitored facial nerve muscles as the tumor was mobilized and removed. It was noted that discharges involved both the lower and upper facial muscles. These discharges diminished when the surgeons paused and applied warm irrigation. Discharges were also noted in the temporalis and masseter muscles at times. Handheld stimulated EMG using a CaseReader monopolar stimulator was used very frequently by the surgeons to identify and preserve neural elements, in particular the facial nerve, as the resection proceeded. At closing, stimulation of the facial nerve at the brainstem gave robust EMG responses in all 4 monitored facial nerve muscles with a threshold of 0.05 mA, suggesting that the facial nerve was substantially intact. This IOM study suggests intermittent irritation of the upper and lower branches of the facial nerve, as well as the trigeminal nerve. Overall, neuromonitoring did not raise significant concerns for potential new sensorimotor deficits as compared to the patient???s baseline. Carlos Parra MD/PhD Cc: Henry Chaves MD Cc: Tanya Aguilera MD documented in this encounter Miscellaneous Notes * Plan of Care - Dona Vora RN - 03/06/2016 5:28 AM EST Problem: Patient Care Overview Goal: Plan of Care Review Outcome: Ongoing (Interventions Implemented as Appropriate) 03/06/16 5828 Coping/Psychosocial Plan Of Care Reviewed With patient Plan of Care Review Progress improving OUTCOME EVALUATION NOTE: OUTCOME SUMMARY: Pt is neurologically intact. Rings appropriately, independent in bathroom. Ambulated in johnson w/ daughter around loop and to elevators, steady gait. Reports of pain treated w/ sched Tylenol and prn oxycodone, see MAR. Gauze dressing over right ear incision, CDI. PLAN MOVING FORWARD: Discharge planning INDIVIDUALIZED FALL PREVENTION INTERVENTIONS: Patient-specific fall risk factors per assessment: pain, oxycodone medication, decreased hearing right side Assistance: Independent Supervision: Independent Surveillance: Bed locked in low position, call bautista within reach, purposeful hourly rounding, clutter free environment, bed/chair alarm on Patient-specific fall prevention interventions for sensory deficits provided: yes- glasses at bedside, decreased hearing on right side CPG GOAL OUTCOME EVALUATION: Continue care plan as documented. * Plan of Care - Michaelle Guzmán RN - 03/05/2016 5:48 PM EST Problem: Patient Care Overview Goal: Plan of Care Review Outcome: Ongoing (Interventions Implemented as Appropriate) 03/03/16 1837 03/05/16 0900 Coping/Psychosocial Plan Of Care Reviewed With -- patient Plan of Care Review Progress progress toward functional goals as expected -- OUTCOME EVALUATION NOTE: OUTCOME SUMMARY: A&O x 4, neuro checks unchanged.Independent in bathroom, rings appropriatly. Pain treated w/ sches Tylenol and prn oxycodone, see MAR. Gauze dressing over right ear incision, remains CDI with no drainage. PLAN MOVING FORWARD: Pain management INDIVIDUALIZED FALL PREVENTION INTERVENTIONS: Patient-specific fall risk factors per assessment: pain, medication, decreased hearing right side, lines Assistance: Independent Supervision: Independent Surveillance: Call bautista within reach, hourly rounding, bed/chair alarm on Patient-specific fall prevention interventions for sensory deficits provided:glasses on, decreased hearing on right side CPG GOAL OUTCOME EVALUATION: * Plan of Care - Dona Vora RN - 03/05/2016 5:09 AM EST Problem: Patient Care Overview Goal: Plan of Care Review Outcome: Ongoing (Interventions Implemented as Appropriate) 03/03/16 1837 03/05/16 0506 Coping/Psychosocial Plan Of Care Reviewed With -- patient Plan of Care Review Progress progress toward functional goals as expected -- OUTCOME EVALUATION NOTE: OUTCOME SUMMARY: Pt is neurologically intact. Rings appropriately to be unhooked, independent in bathroom. Reports of pain treated w/ sches Tylenol and prn oxycodone, see MAR. Gauze dressing over right ear incision, CDI. PLAN MOVING FORWARD: Pain management Discharge planning INDIVIDUALIZED FALL PREVENTION INTERVENTIONS: Patient-specific fall risk factors per assessment: pain, oxycodone medication, decreased hearing right side Assistance: Independent Supervision: Independent Surveillance: Bed locked in low position, call bautista within reach, purposeful hourly rounding, clutter free environment, bed/chair alarm on Patient-specific fall prevention interventions for sensory deficits provided: yes- glasses at bedside, decreased hearing on right side CPG GOAL OUTCOME EVALUATION: Continue care plan as documented. * Plan of Care - Jose Alfredo Waller RN - 03/04/2016 3:58 PM EST Problem: Patient Care Overview Goal: Plan of Care Review Outcome: Ongoing (Interventions Implemented as Appropriate) Pain control * Initial Assessments - Stephan Bone RN - 03/04/2016 1:45 PM EST Office of Care Management Initial Assessment Stephan Bone RN reviewed record and discussed patient with Care Team. Source of Information: via chart review and pt interview at her bedside. Introduced self/reviewed role; services accepted. Reason for Hospitalization: Acoustic neuroma s/p excision. From [facility] [place] [place] Daily Note: 70 y/o female s/p suboccipital crani- for resection of vestibular schwannoma.Neurologically stable post-op. Past Medical History: significant for mild asthma with infrequent inhaler use and Chronic Lymphocytic Leukemia. Hospitalizations Within the Past 30 Days: none identified in chart review however pt was here for an endoscopy on 02/09/2016. Anticipated Length Of Stay (If known): unknown at this time. Current Decision-Making Capacity: pt is alert and oriented X 4 and at full capacity. She was very pleasant to interview. She did complain of some minor discomfort on the right side of her head- temporal area- under the dressing. Pt states,I am being treated great by the staff here, respectful Advance Care Planning: no AD on file. Pt states she does have an AD and she will have her daughter bring in a copy to be scanned into her chart. Pt reports her DPOAH per that document is her daughterCindy Felipe. Current Coping/Education/Information Needs: no need for a family meeting or an mental measurements teacher at this time. Current Functional Ability: independent with ADL's/IADL's. Functional Status Prior to Admission: independent with ADL's/IADL's and she did not require any DME. Home Environment: pt's lives alone in a house in [place], [place] that has 2 steps up to enter then 1 flight up to her 2nd floor where her bedroom is. Pt [place] for a month 24/10 to help supervise and support her. She wants to be able to sleep in her bedroom every night then have her friend help her downstairs in the morning where she will stay until bedtime. CM asked if it would be possible for the pt to have a bedroom setup for her on the 1st floor so she did not have to climb those stairs which she verified could be done. CM encouraged pt to give it some serious thought. Social & Family Supports/Community Resources: denies needs at this time. Behavioral Health History: H/O Anxiety and Depression. Substance Use/Abuse: pt reports she drinks 1-2 glasses of wine per night but does not do any illicit drugs. Other Pertinent/Service Specific Information: none. Health/Prescription Coverage: Primary Insurance: Medicare Part A Only Secondary Insurance: [employer] HMO POS Prescription Coverage: yes Preferred Pharmacy: [facility] in [place], [place]. Other: none. Primary Care Provider: Elizabeth Armenta MD [phone] Patient/Caregiver Goals of Treatment: anticipate outpatient follow up at [place]. Pt remains independentwith ADL's/IADL's and has a friend staying with her for the next month for safety. Potential Needs for Transition of Care: Rehab/SNF: not recommended. Home Health: not recommended. DME: none previously required. Dialysis: N/A Community Resources: none. Transportation: pt's friend will provide when pt is medically ready. Other: none. Anticipated Barriers to Discharge/Special Considerations: no barriers identified. Plan: a member of the Care Management team will continue to monitor progress, follow for continuityof care and assist with transition of care planning. Hand Fur Cleaner Stephan Bone RN, BSN Pager #[phone] * Op Note - Tanya Aguilera MD - 03/04/2016 8:47 AM EST [facility] [place] Operative Note Patient Name: Latisha Felipe : [id number] MR#: [id number] Case Date: 03/03/2016 Surgeon: Surgeon(s) and Role: Panel 1: * Henry Chaves MD - Primary * Jarrod Quintanilla MD Panel 2: * Tanya Aguilera MD - Primary Preoperative diagnosis: TUMOR Postoperative diagnosis: TUMOR Procedure(s): TISSUE GRAFT, PARATENON, FAT, DERMIS (OTHER) @CRANIECTOMY, EXC. CEREBELLOPONTINE ANGLE TUMOR MICROSCOPE USE @CRANIECTOMY,TRANSTEMPORAL- ACOUSTIC NEUROMA Anesthesia: General Estimated Blood Loss: * No values recorded between 03/03/2016 8:47 AM and 03/03/2016 2:21 PM * Specimens removed during surgery: None Drains: Surgical Closure: Primary Closure - closure of ALL tissue levels during the original surgery regardless of wires, wickes, drains, or other devices extruding through the incision Disposition: awakened from anesthesia, extubated and taken to the recovery room in a stable condition, having suffered no apparent untoward event. Condition: doing well without problems (Please see the Surgical Encounter Summary for any Implant and Specimen details pertinent to this patient.) HPI/Surgical Indications: acoustic neuroma Procedure Description: Procedure: retrosigmoid transtemporal resection of acoustic neuroma. Operated Side: right Findings: large tumor with cystic component, focal area of adherence of tumor capsule / arachnoid to facial nerve left in place Procedure Note: This is a joint dictation by procedure done in conjunction with Neurosurgery. Details of the neuro-operative monitoring, initial incision, craniotomy, and a potion of the tumor resection and closure are all dictated in a separate operative report by the Neurosurgical Service. The patient was taken to the Operating Room and placed on the operating table in supine poosition. After adequate general anesthesia and oroendotracheal intubation, the patient's ear and occiput were prepped and draped in the usual sterile fashion. Neural monitoring was provided for cranial nerves V, VII,and XI as well as both ipsilateral and contralateral ABR monitoring. Initial craniotomy was performed by the neurosurgical team. The sigmoid sinus was skeletonized and the dura reflected internally over the sigmoid sinus. Mastoid air cells were occluded. The tumor wasdebulked and from the brainstem by the neurosurgery service. At this point, the Neurootology Service assumed control of the case. The dura was reflected from the posterior fossa plate and reflected down intact to the internal auditory canal, preserving the endolymphatic sac and duct. Rotating and jess burs were used to remove a significant amount of bone exposing the internal auditory canal in approximately 8 to 9 mm in length from the medial meatus of the canal. The internal auditory canal was exposed approximately 180 degrees in its circumference. The posterior semicircular canal and labyrinth were not violated. Next, the IAC dura was incised and reflected. The facial nerve was identified with the Prass probe. The cochlear nerve was identified and sectioned. The vestibular nerves were sectioned lateral to the tumor. The tumor was resected fully out into the extension of the internal auditory canal and was reflected at this point dividing the vestibular nerves in the process. This was reflected medially back toward the meatus and cerebellar pontine angle, carefully removing tumor with the Sonopet and verifying facial nerve EMG with a Prass probe. The remainder of the tumor was removed form the cerebellar pontine angle to the brainstem by the Neurosurgery. The vestibular nerve were sectioned at the brainstemand the tumor was completely removed. Hemostasis was assured. The brainstem EMG and facial nerve MEP were checked as above. Abdominal fat was harvested from the left lower quadrant and the the IAC was closed with muscle plugs in the perilabyrinthine air cells and abdominal fat and Tisseel over duragen. Additional fat was placed in the lateral air cell. Details of craniotomy and soft tissue closure are dictated in the neurosurgery note. Infection Bundle used? N/A Attestation: Case Date: 03/03/2016 I performed this procedure without the involvement of a resident. TANYA AGUILERA MD 03/04/2016 * Med Student Progress Note - Jose Martinez - 03/04/2016 6:31 AM EST Patient Name: Latisha Felipe ; Age: 7 1945; 70 y.o. Room/Bed: [address] Today's Date: 03/04/16 Subjective: Patient ID: Latisha Felipe ([id number]) is a 70 y.o. female who is LOS: 1 day and 1 Day Post-Opfollowing resection of a vestibulocochlear schwannoma. 24 hour events: - Resection of vestibular schwannoma Overnight events: no acute overnight events Pain: Minor headache, otherwise well-managed CP: Does not endorse SOB: Does not endorse Ambulation: No ambulation Diet: Sips and Chips (Give Meds) N/V: Does not endorse Flatus: Does not endorse Stool: Does not endorse Urinating: Duran Objective: Vitals: Last value Range last 24 hrs Temperature Temp: 37 ??C (98.6 ??F) Temp: [36.8 ??C (98.2 ??F)-37.2 ??C (99 ??F)] Heart Rate Heart Rate: 72 Heart Rate: [62-77] Blood Pressure BP: 154/77 BP: -- Respiratory Rate Resp: 21 Resp: [14-29] SpO2 on room air SpO2: 96 % SpO2: [92 %-99 %] I/O: Last 24 Current Shift 03/03 701 - 03/04 0700 In: 3222 [P.O.:60; I.V.:3162] Out: 1300 [Urine:1200] 03/03 1901 - 03/04 0700 In: 957 [I.V.:957] Out: 450 [Urine:450] Physical Exam: General: Awake, resting comfortably, AOx3 Head: Dressings c/d/i Eyes: Clear to fundoscope exam. PERRL EOM intact. Lungs: Normal work of breathing. Neuro: 5/5 strength in b/l UE and LE Labs: Recent Labs 03/04/16 0055 WBC 22.9* HGB 11.5* HCT 34.1* PLATELET 155 Recent Labs 03/04/16 0055 NA 139 K 3.6 CL 102 CO2 24 BUN 15 CREATININE 0.74 Recent Labs 03/04/16 0055 CALCIUM 8.2* Recent Labs 03/04/16 0055 GLUCOSE 146 No results for input(s): AMYLASE, BFAMYLASE in the last 168 hours. No results for input(s): ALB, AST, ALT, ALKPHOS, BILITOT, BILIDIR, LDH in the last 168 hours. No results for input(s): INR, PT, PTT in the last 168 hours. No results for input(s): CK in the last 168 hours. No results for input(s): PREALBUMIN in the last 168 hours. Micro: no interval microbiology Imaging: no interval imaging Pathology: no interval imaing Date & Time Type Result 03/03/16 10:12 Cranial mass frozen section Neoplasm, favors schwannoma Assessment and Plan: In summary, Latisha Felipe is a 70 y.o. female who is LOS: 1 day and 1 Day Post-Op after resection of a vestibulocochlear schwannoma. # NEURO:?? Keppra (seizure prophylaxis) Tylenol PRN (pain) Oxycodone PRN (pain) Fentanyl PRN (pain) Dexamethasone 4mg, injection (q6 hrs until dc'd) Fluoxetine 20mg qd Scopolamine 1.5mg transdermal, replace every 72 hours Metoclopramide 10mg q8hrs, prn # CV:?? SBP <140 (Hydralazine and Labetalol PRN) Amlodipine 10mg Losartan 100mg qd #PULM: Albuterol 90mcg, 2 puff prn # GI:?? Protonix (prophylaxis) Bisacodyl EC 10mg bid Miralax qd #FEK: Hydrochlorothiazide 25mg qd #FEN: ADAT #ID: Cefazolin IV (24 hr ppx, ending 03/04) # PPX:?? SCDs, encourage ambulation # LINES:?? Remove A-line Duran in place # DISPO:?? Floor status, Full Code Hossein Martinez (Tito) MS3 Pager: [phone] * Plan of Care - Kayleigh Rojas RN - 03/04/2016 3:09 AM EST Problem: Skin Integrity Impairment, Risk/Actual (Adult) Goal: Identify Related Risk Factors and Signs and Symptoms Related risk factors and signs and symptoms are identified upon initiation of Human Response Clinical Practice Guideline (CPG) Outcome: Ongoing (Interventions Implemented as Appropriate) 03/04/16 0303 Skin Integrity Impairment, Risk/Actual Skin Integrity Impairment, Risk/Actual: Related Risk Factors age extremes;fluid/nutrition status;surgery/procedure OUTCOME EVALUATION NOTE: OUTCOME SUMMARY: Pt a/o x4, moving all extremities, PERRLA. Pt c/o 6-7/10 pain throughout the night, multiple doses prn oxy and fentanyl given, see MAR. Maintained SBP <140. PLAN MOVING FORWARD: Continue to monitor neuro status and maintain SBP <140, tx to [facility]. INDIVIDUALIZED FALL PREVENTION INTERVENTIONS: Patient-specific fall risk factors per assessment: [current deficits]: IVF, generalized weakness Assistance [level of assistance required for transfers and ambulation]: Bedrest Supervision [direct monitoring required during toileting and ADLs]: Near nurse's station Surveillance [continuous indirect monitoring]: Kolton's monitor Patient-specific fall prevention interventions for sensory deficits provided, if applicable: [X] Yes CPG GOAL OUTCOME EVALUATION: Goal: Skin Integrity/Wound Healing Patient will demonstrate the desired outcomes by discharge/transition of care. Outcome: Ongoing (Interventions Implemented as Appropriate) 03/04/16 0303 Skin Integrity Impairment, Risk/Actual (Adult) Skin Integrity/Wound Healing making progress toward outcome Problem: Patient Care Overview Goal: Plan of Care Review Outcome: Ongoing (Interventions Implemented as Appropriate) 03/03/16 1837 03/03/161999 Coping/Psychosocial Plan Of Care Reviewed With -- patient;family Plan of Care Review Progress progress toward functional goals as expected -- Goal: Individualization & Mutuality Outcome: Ongoing (Interventions Implemented as Appropriate) 03/03/16 1600 Mutuality/Individual Preferences What Anxieties, Fears or Concerns Do You Have About Your Health or Care? None What Questions Do You Have About Your Health or Care? None What Information Would Help Us Give You More Personalized Care? None Goal: Fall Prevention-Safe Patient Handling Outcome: Ongoing (Interventions Implemented as Appropriate) 03/03/16199903/04/16 0200 Mare Fall Risk History of Falling 0 -- Secondary Diagnosis 15 -- Ambulatory Aids 0 -- Intravenous Therapy/Heparin/Saline Lock 20 -- Gait/Transferring 0 -- Mental Status 0 -- Score 35 -- OTHER Garvey Fall Risk Med -- Restraint Interventions Safety Promotion/Fall Prevention activity supervised;fall prevention program maintained;muscle strengthening facilitated;safety round/check completed;nonskid shoes/slippers when out of bed -- Positioning Body Position -- side-lying, left Goal: Infection Control Outcome: Ongoing (Interventions Implemented as Appropriate) 03/03/161999 Safety Interventions Isolation Precautions standard precautions maintained Infection Prevention environmental surveillance performed;equipment surfaces disinfected;personal protective equipment utilized;rest/sleep promoted;single patient room provided Coping Strategies Supportive Measures active listening utilized;decision-making supported;goal setting facilitated;journaling promoted;positive reinforcement provided;self- care encouraged;self-responsibility promoted;verbalization of feelings encouraged Goal: Discharge Needs Assessment Outcome: Ongoing (Interventions Implemented as Appropriate) 03/04/16302 Discharge Needs Assessment Readmission Within The Last 30 Days no previous admission in last 30 days Equipment Needed After Discharge none Discharge Disposition home or self-care Current Health Anticipated Changes Related to Illness none Activity/Self Care Review of Systems Equipment Currently Used at Home none Goal: Interdisciplinary Rounds/Family Conf Outcome: Ongoing (Interventions Implemented as Appropriate) 03/04/16302 Interdisciplinary Rounds/Family Conf Participants physician;patient;nursing Problem: Pain, Acute (Adult) Goal: Identify Related Risk Factors and Signs and Symptoms Related risk factors and signs and symptoms are identified upon initiation of Human Response Clinical Practice Guideline (CPG) Outcome: Ongoing (Interventions Implemented as Appropriate) 03/04/16302 Pain, Acute Related Risk Factors (Acute Pain) disease process;patient perception;persistent pain;procedure/treatment;surgery;positioning Signs and Symptoms (Acute Pain) verbalization of pain descriptors Goal: Acceptable Pain Control/Comfort Level Patient will demonstrate the desired outcomes by discharge/transition of care. Outcome: Ongoing (Interventions Implemented as Appropriate) 03/04/16302 Pain, Acute (Adult) Acceptable Pain Control/Comfort Level making progress toward outcome * Plan of Care - Mary Lynn RN - 03/03/2016 6:43 PM EST Problem: Patient Care Overview Goal: Plan of Care Review 03/03/16 9827 Coping/Psychosocial Plan Of Care Reviewed With patient Plan of Care Review Progress progress toward functional goals as expected OUTCOME EVALUATION NOTE: OUTCOME SUMMARY: Post excision of right acoustic neuroma, here in ICU for q1hr neuro checks. SBP goal <140. Hydralazine administered x 1. PRN pain meds administered per pt. Voided x 2 in bedpan. HOB>30 PLAN MOVING FORWARD: q1hr neuro checks, monitor BP INDIVIDUALIZED FALL PREVENTION INTERVENTIONS: Patient-specific fall risk factors per assessment: [current deficits]: None Assistance [level of assistance required for transfers and ambulation]: x1 to stand by assist Supervision [direct monitoring required during toileting and ADLs]: Visual monitoring//assistance Surveillance [continuous indirect monitoring]: Kilpatrick monitor Patient-specific fall prevention interventions for sensory deficits provided, if applicable: N/A CPG GOAL OUTCOME EVALUATION: Continued * Op Note - Henry Chaves MD - 03/03/2016 2:56 PM EST [facility] [place] Operative Note Patient Name: Latisha Felipe : [id number] MR#: [id number] Case Date: 03/03/2016 Surgeon: Surgeon(s) and Role: Panel 1: * Henry Chaves MD - Primary * Jarrod Quintanilla MD Preoperative diagnosis: TUMOR Postoperative diagnosis: TUMOR Procedure(s): TISSUE GRAFT, PARATENON, FAT, DERMIS (OTHER) @CRANIECTOMY, EXC. 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 The patient has had hearing loss for greater than 10 years, but has recently had facial dysesthesias. After discussion of alternatives, the patient agreed to a retrosigmoid craniotomy for resection. OPERATIVE REPORT: The patient was intubated and placed on the operating table in a supine position with the head turned far left. Neuromonitoring was attached for cranial nerves 7 and 5 monitoring. A retrosigmoid incision was marked, prepped and draped along with a small incision in the abdomen. The craniotomy was then started with skin incision leading down to the calvarium. A subperiosteal dissection was performed exposing the mastoid. A single bur hole was placed and we immediately entered into air sinuses. We extended this down to the dura, which was noted to be very friable and, therefore, the majority of the opening was a craniectomy with drilling down to an eggshell of bone and removing this with rongeurs. A small portion of bone was set aside for later use, however. We extended this up to the junction of the transverse and sigmoid sinuses. The air cavities were opened and would be closed at a later point in the operation. The dura was opened in a stellate manner. CSF was released through a Dandy maneuver. Under the operating microscope, we inspected the CV angle and the tumor was clearly evident. Intraoperative stimulation revealed no evidence of cranial nerve 7 along the posterior aspect and, therefore, we debulked the tumor in this region after removing the arachnoid planes. There was a notable cyst anteriorly and we were able to reach over the superior portion of the tumor and puncture the cyst and allow cyst fluid to egress, decompressing the area nicely. Dr. Aguilera then performed drilling of the internal acoustic meatus and this will be dictated in a separate note. Upon our return, the distal portion of cranial nerve 7 had been found. This merged into one of the cystic capsules of the tumor and we were able to perform a dissection proximally, elevating up the solid portion of the tumor and gradually merge these 2 together, removing tumor with the ultrasonic aspirator as we went. At the conclusion, the entirety of the tumor was removed, accepting a very small 1 x 2 mm region of what appeared to be capsule, but this was densely adherent to a very thinned out cranial nerve 7. Therefore, we thought it better to leave this. Stimulation of the brain stem at 0.5 mA produced a good response and motor evoked potentials were normal at the end of the operation. At this point, a small incision in the abdomen was made and subcutaneous fat was harvested. This wound was then liberally irrigated and closed in a standard layered fashion. The fat was then used in closure of the IAC, which was performed by Dr. Aguilera. We then placed a subdural and epidural piece of DuraGen and the dura was sutured back where possible. Adherus was then used to close over the dura and the bone flap and a large bur hole cover were then used to recreate the cranium in this area. The muscle, fascia, subcutaneous and skin layers were then closed in layered fashion. The patient was transferred to the ICU in stable condition. Attestation: Case Date: 03/03/2016 I was present and I participated during the entire procedure (does not need to include opening and closing). HENRY CHAVES MD 03/03/2016 documented in this encounter Plan of Treatment Not on file documented as of this encounter Procedures Procedure Name Priority Date/Time Associated Diagnosis Comments WHEEL PRESS CLERK SCAN 03/07/2016 12:00 AM EST BASIC METABOLIC PANEL (NON-FASTING) Routine 03/06/2016 4:56 AM EST BASIC METABOLIC PANEL (NON-FASTING) Routine 03/05/2016 6:30 AM EST DIFFERENTIAL, MANUAL Routine 03/04/2016 12:55 AM EST HEMOGRAM Routine 03/04/2016 12:55 AM EST CBC (WITH DIFF) Routine 03/04/2016 12:55 AM EST BASIC METABOLIC PANEL (NON-FASTING) Routine 03/04/2016 12:55 AM EST SPECIMEN TO PATHOLOGY Routine 03/03/2016 1:46 PM EST BLOOD GAS 2 ARTERIAL Routine 03/03/2016 12:03 PM EST SURGICAL PATHOLOGY REPORT Routine 03/03/2016 9:52 AM EST SURGICAL PATHOLOGY REPORT Routine 03/03/2016 9:52 AM EST SPECIMEN TO PATHOLOGY Routine 03/03/2016 9:51 AM EST BLOOD GAS 2 ARTERIAL Routine 03/03/2016 8:44 AM EST @CRANIECTOMY,TRANSTEMPOR AL- ACOUSTIC NEUROMA (WRVU 54.08) 03/03/2016 7:47 AM EST TUMOR MICROSCOPE USE (WRVU 3.46) 03/03/2016 7:47 AM EST TUMOR @CRANIECTOMY, EXC. CEREBELLOPONTINE ANGLE TUMOR (WRVU 57.09) 03/03/2016 7:47 AM EST TUMOR TISSUE GRAFT, PARATENON, FAT, DERMIS (OTHER) (WRVU 5.79) 03/03/2016 7:47 AM EST TUMOR documented in this encounter Results * SCAN DOC: WHEEL PRESS CLERK (03/07/2016 12:00 AM EST) Anatomical Region Laterality Modality Other Scanning Provider MEDIA MGR SCAN EXT O RDR/RSLT * (ABNORMAL) Basic Metabolic Panel (non-fasting) (03/06/2016 4:56 AM EST) Glucose Lvl 159 65 - 199 mg/dL [facility] Comment:Diabetes: >=200 mg/d L plus symptoms BUN 16 8 - 18 mg/dL [facility] Creatinine 0.68(L) 0.70 - 1.20 mg/dL [facility] Comment: Please note that the pediatric reference intervals supplied above were not validated at [facility]. Results from pediatric patients should be interpreted in conjunction to the patient's age, height and muscle mass. Sodium 138 135 - 145 mmol/L [facility] Potassium 4.1 3.5 - 5.0 mmol/L [facility] Comment: Please note: ??Patients with WBC >100,000 may have falsely elevated Potassium levels. ??For accurate Potassium quantification in these patients send serum separator tube (gold top) for subsequent determinations. ??Contact the Clinical Chemistry Laboratory if there are any questions. Chloride 95(L) 98 - 107 mmol/L [facility] CO2 29 22 - 31 mmol/L [facility] Anion Gap 14 5 - 15 mmol/L [facility] Calcium 9.2 8.5 - 10.5 mg/dL [facility] Estimated GFR >60 >=60 [facility] Comment: This estimated GFR [...] the following links into your internet browser. [email or web address] Blood specimen (specimen) 03/06/2016 4:56 AM EST 03/06/2016 5:05 AM EST Narrative Resulting Agency Comment Spec In Lab Henry Chaves MD CHEMISTRY ORDERABLES Performing Organization Address City/State/[facility] Co de Phone Number [facility] [place] [address] * (ABNORMAL) Basic Metabolic Panel (non-fasting) (03/05/2016 6:30 AM EST) Glucose Lvl 151 65 - 199 mg/dL [facility] Comment:Diabetes: >=200 mg/d L plus symptoms BUN 14 8 - 18 mg/dL [facility] Creatinine 0.71 0.70 - 1.20 mg/dL [facility] Comment: Please note that the pediatric reference intervals supplied above were not validated at [facility]. Results from pediatric patients should be interpreted in conjunction to the patient's age, height and muscle mass. Sodium 136 135 - 145 mmol/L [facility] Potassium 4.0 3.5 - 5.0 mmol/L [facility] Comment: Please note: ??Patients with WBC >100,000 may have falsely elevated Potassium levels. ??For accurate Potassium quantification in these patients send serum separator tube (gold top) for subsequent determinations. ??Contact the Clinical Chemistry Laboratory if there are any questions. Chloride 96(L) 98 - 107 mmol/L [facility] CO2 29 22 - 31 mmol/L [facility] Anion Gap 11 5 - 15 mmol/L [facility] Calcium 8.7 8.5 - 10.5 mg/dL [facility] Estimated GFR >60 >=60 [facility] Comment: This estimated GFR [...] the following links into your internet browser. [email or web address] Blood specimen (specimen) 03/05/2016 6:30 AM EST 03/05/2016 6:48 AM EST Narrative Resulting Agency Comment Spec In Lab Henry Chaves MD CHEMISTRY ORDERABLES [facility] [place] [address] * (ABNORMAL) Differential, Manual (03/04/2016 12:55 AM EST) Neutrophil % 24 % [facility] Lymphocyte % 72 % [facility] Monocyte % 4 % [facility] Neutrophil Abs 5.5 1.5 - 6.3 x10(3)/[facility] Neutr Abs (ANC) 5.49 1.70 - 6.10 x10(3)/[facility] Lymphocyte Abs 16.5(H) 1.0 - 3.6 x10(3)/[facility] Monocyte Abs 0.9 0.2 - 1.0 x10(3)/[facility] Tot Diff Cell Ct 100 [facility] Plat Estimate Normal [facility] RBC Morphology Abnormal [facility] Ovalocytes 1-5 /HPF [facility] Atypical Lymph Moderate [facility] Smudge Cells Present [facility] Blood specimen (specimen) 03/04/2016 12:55 AM EST 03/04/2016 1:04 AM EST Narrative Resulting Agency Comment Spec In Lab Henry Chaves MD HEMATOLOGY ORDERABLE S [facility] [place] [address] * (ABNORMAL) Hemogram (03/04/2016 12:55 AM EST) WBC 22.9(H) 4.0 - 9.5 x10(3)/[facility] RBC 3.94(L) 4.00 - 5.21 x10(6)/[facility] Hemoglobin 11.5(L) 11.7 - 15.5 gm/dL [facility] Hematocrit 34.1(L) 35.7 - 45.8 % [facility] MCV 86.5 82.6 - 94.4 fL [facility] MCH 29.2 27.1 - 32.0 pg [facility] MCHC 33.7 31.7 - 35.0 gm/dL [facility] Platelets 155 145 - 357 x10(3)/[facility] RDWSD 40.3 37.0 - 46.0 fL [facility] RDWCV 12.7 11.5 - 14.1 % [facility] MPV 9.4 7.6 - 12.9 fL [facility] nRBC % Auto 0.2 % [facility] nRBC Abs Auto 0.040(H) 0.000 - 0.000 x10(3)/[facility] Blood specimen (specimen) 03/04/2016 12:55 AM EST 03/04/2016 1:04 AM EST Narrative Resulting Agency Comment Spec In Lab Henry Chaves MD HEMATOLOGY ORDERABLE S [facility] [place] [place] [address] * (ABNORMAL) Basic Metabolic Panel (non-fasting) (03/04/2016 12:55 AM EST) Glucose Lvl 146 65 - 199 mg/dL [facility] Comment:Diabetes: >=200 mg/d L plus symptoms BUN 15 8 - 18 mg/dL [facility] Creatinine 0.74 0.70 - 1.20 mg/dL [facility] Comment: Please note that the pediatric reference intervals supplied above were not validated at [facility]. Results from pediatric patients should be interpreted in conjunction to the patient's age, height and muscle mass. Sodium 139 135 - 145 mmol/L [facility] Potassium 3.6 3.5 - 5.0 mmol/L [facility] Comment: Please note: ??Patients with WBC >100,000 may have falsely elevated Potassium levels. ??For accurate Potassium quantification in these patients send serum separator tube (gold top) for subsequent determinations. ??Contact the Clinical Chemistry Laboratory if there are any questions. Chloride 102 98 - 107 mmol/L [facility] CO2 24 22 - 31 mmol/L [facility] Anion Gap 13 5 - 15 mmol/L [facility] Calcium 8.2(L) 8.5 - 10.5 mg/dL [facility] Estimated GFR >60 >=60 [facility] Comment: This estimated GFR [...] the following links into your internet browser. [email or web address] Blood specimen (specimen) 03/04/2016 12:55 AM EST 03/04/2016 1:04 AM EST Narrative Resulting Agency Comment Spec In Lab Henry Chaves MD CHEMISTRY ORDERABLES Performing Organization Address [facility] Co de Phone Number [facility] [place] [place] [address] * Specimen to Pathology (surgical or derm) (03/03/2016 1:46 PM EST) AP Specimen 03/03/2016 1:46 PM EST 03/03/2016 1:46 PM EST Narrative [facility] - 03/03/2016 1:46 PM EST Specimen requisition ordered. ??Separate Pathology report to follow Henry Chaves MD PATHOLOGY/CYTOLOGY O RDERABLES Performing Organization Address [facility] Co de Phone Number [facility] [place] [address] * (ABNORMAL) BLOOD GAS 2 ARTERIAL (03/03/2016 12:03 PM EST) pH Art 7.46(H) 7.35 - 7.45 [facility] pCO2 Art 34(L) 35 - 45 mmHg [facility] pO2 Art 180(H) 85 - 104 mmHg [facility] HCO3 Art 23.5 20.0 - 26.0 mmol/L [facility] BE Art -0.3 -3.0 - 3.0 mmol/L [facility] Hgb Blood Gas 13.2 11.7 - 15.5 gm/dL [facility] O2HB Art 98.3(H) 94.0 - 97.0 % [facility] COHB Art 0.6 % [facility] Comment: Nonsmokers: 0.5-1.5% COHB Smokers: Variable, but usually less than 10% Toxic: 20-30% COHB Lethal: Greater than 60% COHB METHB Art 0.3 <=1.5 % [facility] Na Whole Blood 142 135 - 145 mmol/L [facility] K Whole Blood 3.5 3.5 - 5.0 mmol/L [facility] Comment: Please note: Patients with WBC >100,000 may have falsely elevated Potassium levels. Contact the Clinical Chemistry Laboratory if there are any questions. ICa Whole Blood 1.17 1.15 - 1.33 mmol/L [facility] Comment: Note: ??Total bilirubin higher than 20 mg/dL may lead to falsely low ionized calcium. CL Whole Blood 106 98 - 107 mmol/L [facility] Gluc Whole Bld 147 65 - 199 mg/dL [facility] Comment:Diabetes: >=200 mg/d L plus symptoms. Lactate WB 2.0 0.5 - 2.2 mmol/L [facility] Blood specimen (specimen) 03/03/2016 12:03 PM EST 03/03/2016 12:03 PM EST Henry Chaves MD CHEMISTRY ORDERABLES [facility] [place] [address] * Surgical Pathology Report (03/03/2016 9:52 AM EST) Surgical Pathology Report [id number] ? Location: [facility]; [facility]; A The signing pathologist has (i) examined the relevant preparation(s) for the specimen(s) and (ii) rendered or confirmed the diagnosis(es). . 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 Electronically signed by: ??RoldanErika ramos MD Verified: ??03/08/2016 ?Pathologist ADDITIONAL STUDIES Immunohistochemistry Studies: Formalin-fixed, paraffin-embedded tissue sections are studied using the polymer technique with appropriate positive and negative controls. ?These IHC studies provide the pathologist with adjunctive diagnostic information. Antibody specificity has been verified by testing antibodies on a series of in-house tissues with known immunohistochemical performance characteristics. The clinical interpretation of any antibody positive staining or its absence is evaluated within the context of clinical presentation, morphology, histopathological criteria and other diagnostic tests. Block ? Antibody ?Result (Positive/Negative) A1 ? S100 ? Diffusely and strongly positive A1 ? Ki-67 ?Proliferation index less than 2% CLINICAL INFORMATION Specimen Submitted: A - Mass for frozen section B - CP angle tumor Clinical History: Tumor Clinical Diagnosis: Same FROZEN SECTION Frozen section(s) performed. ??Please refer to separate electronic frozen section report(s). SPECIMEN PROCESSING A - ??Labeled/Fixative: Mass, fresh. Quantity/Size: Three, 0.2-0.4 cm. Tissue Description: Cores of yellow soft tissue. Sections/Processing: (1) remainder of the frozen section tissue is entirely submitted. (T1) B - ??Labeled/Fixative: CP angle tumor , Fresh. Quantity/Size: Multiple, 2.0 x 1.8 x 0.7 cm in aggregate. Tissue Description: Multiple fragments of soft, friable, yellow tissue with hemorrhage. Sections/Processing: (1-2) the specimen is entirely submitted. ??(T2) cmn ?Frozen Section FROZEN SECTION DIAGNOSIS Cranium, mass, frozen section: . FROZEN SECTION DIAGNOSIS ??Neoplasm, favor schwannoma. 03/03/16 10:12 Electronically signed by: ??Erika Roldan MD Verified: ??03/03/2016 ?Pathologist This intraoperative consultation should be interpreted as a preliminary diagnosis pending review of the entire specimen and special studies, if any. [facility] 03/03/2016 9:52 AM EST Henry Chaves MD PATHOLOGY/CYTOLOGY Cameron HORAN Performing Organization Address [facility] [place] [address] * Surgical Pathology Report (03/03/2016 9:52 AM EST) Surgical Pathology Report [id number] ?Location: OR; OR01; A The signing pathologist has (i) examined the relevant preparation(s) for the specimen(s) and (ii) rendered or confirmed the diagnosis(es). . ?Frozen Section FROZEN SECTION DIAGNOSIS Cranium, mass, frozen section: ??Neoplasm, favor schwannoma. 03/03/16 10:12 Electronically signed by: ??Erika Roldan MD Verified: ??03/03/2016 ?Pathologist This intraoperative consultation should be interpreted as a preliminary diagnosis pending review of the entire specimen and special studies, if any. [facility] 03/03/2016 9:52 AM EST Henry Chaves MD PATHOLOGY/CYTOLOGY Cameron HORAN Performing Organization Address [facility] [place] [address] * Specimen to Pathology (surgical or derm) (03/03/2016 9:51 AM EST) AP Specimen 03/03/2016 9:51 AM EST 03/03/2016 9:51 AM EST Narrative [facility] - 03/03/2016 9:51 AM EST Specimen requisition ordered. ??Separate Pathology report to follow Henry Chaves MD PATHOLOGY/CYTOLOGY Cameron HORAN [facility] [place] [address] * (ABNORMAL) BLOOD GAS 2 ARTERIAL (03/03/2016 8:44 AM EST) pH Art 7.44 7.35 - 7.45 [facility] pCO2 Art 36 35 - 45 mmHg [facility] pO2 Art 341(H) 85 - 104 mmHg [facility] HCO3 Art 24.0 20.0 - 26.0 mmol/L [facility] BE Art -0.1 -3.0 - 3.0 mmol/L [facility] Hgb Blood Gas 12.9 11.7 - 15.5 gm/dL [facility] O2HB Art 98.6(H) 94.0 - 97.0 % [facility] COHB Art 0.9 % [facility] Comment: Nonsmokers: 0.5-1.5% COHB Smokers: Variable, but usually less than 10% Toxic: 20-30% COHB Lethal: Greater than 60% COHB METHB Art 0.3 <=1.5 % [facility] Na Whole Blood 141 135 - 145 mmol/L [facility] K Whole Blood 3.3(L) 3.5 - 5.0 mmol/L [facility] Comment: Please note: Patients with WBC >100,000 may have falsely elevated Potassium levels. Contact the Clinical Chemistry Laboratory if there are any questions. ICa Whole Blood 1.19 1.15 - 1.33 mmol/L [facility] Comment: Note: ??Total bilirubin higher than 20 mg/dL may lead to falsely low ionized calcium. CL Whole Blood 105 98 - 107 mmol/L [facility] Gluc Whole Bld 134 65 - 199 mg/dL [facility] Comment:Diabetes: >=200 mg/d L plus symptoms. 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 Do not exceed 4000 mg acetaminophen per day., Routine Given 03/03/2016 6:41 PM EST 650 mg acetaminophen (TYLENOL) tablet 650 mg 650 mg, Oral, EVERY 4 HOURS SCHEDULED, First dose (after last modification) on Mon03/04/16 at 0000, Until Discontinued, May repeat once in 30 minutes if desired effect not achieved. Do not exceed 4000 mg acetaminophen per day., Routine Given 03/06/2016 4:00 PM EST 650 mg Given 03/06/2016 1:06 PM EST 650 mg Given 03/06/2016 8:15 AM EST 650 mg amLODIPine (NORVASC) tablet 10 mg 10 mg, Oral, DAILY, First dose on Mon03/04/16 at 0900, Until Discontinued, Routine Given 03/06/2016 8:15 AM EST 10 mg Given 03/05/2016 8:31 AM EST 10 mg Given 03/04/2016 9:08 AM EST 10 mg ceFAZolin (ANCEF) 1g in dextrose 5% 50mL 1,000 mg (1 g), Intravenous, EVERY 8 HOURS, 3 doses, First dose on Mon03/03/16 at 2100, Last dose on 12/2/16 at 1300, Administer over 30 Minutes, Recovery (Recovery-Hospital Unit), Indication for (Active or Suspected): Prophylaxis Given 03/04/2016 1:00 PM EST 1,000 mg 100 mL/ hr Given 03/04/2016 4:34 AM EST 1,000 mg 100 mL/hr Given 03/03/2016 8:19 PM EST 1,000 mg 100 mL/hr chlorhexidine (PERIDEX) 0.12 % oral solution 15 mL 15 mL, Oral, EVERY 12 HOURS SCHEDULED (2 times per day), First dose on Diana 03/03/16 at 2100, Until Discontinued, To brush teeth, Routine Given 03/03/2016 8:23 PM EST 15 mLs dexamethasone (DECADRON) injection 4 mg 4 mg, Intravenous, EVERY 6 HOURS, First dose on Diana 03/03/16 at 1600, Until Discontinued, Routine Given 03/03/2016 3:30 PM EST 4 mg dexamethasone (DECADRON) tablet 4 mg 4 mg, Oral, EVERY 6 HOURS, First dose on Diana 03/03/16 at 1600, Until Discontinued, Routine Given 03/06/2016 3:30 PM EST 4 mg Given 03/06/2016 9:03 AM EST 4 mg Given 03/06/2016 4:41 AM EST 4 mg famotidine (PEPCID) tablet 20 mg 20 mg, Oral, EVERY 12 HOURS, First dose on Diana 03/03/16 at 2100, Until Discontinued, Routine Given 03/06/2016 8:14 AM EST 20 mg Given 03/05/2016 8:44 PM EST 20 mg Given 03/05/2016 8:30 AM EST 20 mg fentaNYL 50mcg/mL injection 25 mcg, Intravenous, EVERY 1 HOUR PRN, Starting on Mon03/03/16 at 1518, Until Mon03/04/16 at 0857, Pain, PRN BTP, Routine Given 03/04/2016 8:09 AM EST 25 m cg Given 03/04/2016 5:24 AM EST 25 mcg Given 03/04/2016 1:00 AM EST 25 mcg FLUoxetine (PROzac) capsule 20 mg 20 mg, Oral, DAILY, First dose on Mon03/04/16 at 0900, Until Discontinued, Routine Given 03/06/2016 8:15 AM EST 20 mg Given 03/05/2016 8:31 AM EST 20 mg Given 03/04/2016 9:08 AM EST 20 mg hydrALAZINE (APRESOLINE) injection 10 mg 10 mg, Intravenous, EVERY 2 HOURS PRN, Starting on Diana 03/03/16 at 1518, Until 03/06/16 at 1734, High Blood Pressure, SBP > 140, For SBP greater than 140 mmHg. May repeat once in 15 minutes if blood pressure remains greater than 140 mmHg.Use if labetolo ineffective after 2 doses., Routine Given 03/03/2016 3:41 PM EST 10 mg hydroCHLOROthiazide (HYDRODIURIL) tablet 25 mg 25 mg, Oral, DAILY, First dose on Mon03/04/16 at 0900, Until Discontinued, Routine Given 03/06/2016 8:14 AM EST 25 mg Given 03/05/2016 8:31 AM EST 25 mg Given 03/04/2016 9:08 AM EST 25 mg labetalol (NORMODYNE,TRANDATE) injection 20 mg 20 mg, Intravenous, EVERY 2 HOURS PRN, Starting on Diana 03/03/16 at 1518, Until 03/06/16 at 1734, High Blood Pressure, SBP > 140, SBP greater than 140 mmHg. May repeat once in 15 minutes if blood pressure remains greater than 140 mmHg., Routine Given 03/06/2016 6:14 AM EST 20 mg losartan (COZAAR) tablet 100 mg 100 mg, Oral, DAILY, First dose on Mon03/04/16 at 0900, Until Discontinued, Routine Given 03/06/2016 8:14 AM EST 100 mg Given 03/05/2016 8:31 AM EST 100 mg Given 03/04/2016 9:07 AM EST 100 mg ondansetron (ZOFRAN) injection 4 mg 4 mg, Intravenous, EVERY 8 HOURS PRN, Starting on Diana 03/03/16 at 1518, Until 03/06/16 at 1734, Nausea, Vomiting, May repeat times one in 30 minutes if ineffective. If multiple antiemetics are ordered, use ondansetron first, prochlorperazine second, and metoclopramide third. ondansetron (ZOFRAN-ODT) oral disintegrating tablet 4 mg 4 mg, Oral, EVERY 8 HOURS PRN, Starting on Diana 03/03/16 at 1518, Until Mon03/06/16 at 1734, Nausea, May repeat in 30 minutes if ineffective. If multiple antiemetics are ordered, use ondansetron first, prochlorperazine second, and metaclopramide third., Routine oxyCODONE (ROXICODONE) immediate release tablet 10 mg 10 mg, Oral, EVERY 4 HOURS PRN, Starting on Diana 12 at 1518, Until Diana 12 at 2303, Pain, severe pain (7-10), May give an additional 5 mg in 30 minutes once if pain not relieved., Routine Given 03/03/2016 8:55 PM EST 10 mg oxyCODONE (ROXICODONE) immediate release tablet 10 mg 10 mg, Oral, EVERY 4 HOURS PRN, Starting on Diana 12 at 2303, Until 03/06/16 at 1734, Pain, moderate pain (4-6), May give additional 5 mg in 30 minutes once if pain not relieved., Routine Given 03/06/2016 1:06 PM EST 10 mg Given 03/06/2016 9:03 AM EST 10 mg Given 03/06/2016 4:41 AM EST 10 mg oxyCODONE (ROXICODONE) immediate release tablet 15 mg 15 mg, Oral, EVERY 4 HOURS PRN, Starting on Diana 12 at 2303, Until 03/06/16 at 1734, Pain, severe pain or opiate tolerant patient (7-10), Do not start patient with 15 mg dose. Do not give 15 mg if patient is opiate niave., Routine Given 03/06/2016 12:42 AM EST 15 mg Given 03/05/2016 8:44 PM EST 15 mg Given 03/05/2016 4:26 AM EST 15 mg oxyCODONE (ROXICODONE) immediate release tablet 5 mg 5 mg, Oral, EVERY 4 HOURS PRN, Starting on Diana 12 at 1518, Until Diana 12 at 2303, Pain, mild to moderate pain (1-6), May give an additional 5 mg in 30 minutes once if pain not relieved., Routine Given 03/03/2016 4:45 PM EST 5 mg Given 03/03/2016 3:46 PM EST 5 mg oxyCODONE (ROXICODONE) immediate release tablet 5 mg 5 mg, Oral, ONCE, 1 dose, On Mon03/03/16 at 2330, Routine Given 03/03/2016 11:15 PM EST 5 mg oxyCODONE (ROXICODONE) immediate release tablet 5 mg 5 mg, Oral, EVERY 4 HOURS PRN, Starting on Mon03/03/16 at 2303, Until Mon03/06/16 at 1734, Pain, mild pain (1-3), May give additional 5 mg in 30 minutes once if pain not relieved., Routine polyethylene glycol (MIRALAX) packet 17 g 17 g, Oral, DAILY PRN, Starting on Mon03/03/16 at 1518, Until Mon03/06/16 at 1734, Constipation, Administer if needed per patient's routine or if no bowel movement within 48 hours to achieve: 1) One bowel movement at least every 48 hours, AND 2) Without straining. If multiple bowel medications ordered, consider polyethylene glycol(MIRALAX) first., Routine Given 03/06/2016 10:35 AM EST 17 g Given 03/05/2016 8:44 PM EST 17 g scopolamine (TRANSDERM-SCOP) 1.5 mg (1 mg over 3 days) patch 1 patch 1 patch, Transdermal, EVERY 72 HOURS, First dose on Mon03/03/16 at 0800, Until Discontinued, Routine Patch Applied 03/06/2016 8:17 AM EST 1 patch 01- Ear Behind (Left) scopolamine (TRANSDERM-SCOP) 1.5 mg patch Patch Removal Transdermal, EVERY 72 HOURS, First dose on Mon03/06/16 at 0745, Until Discontinued, Remove scopolamine 1.5 mg patch scopolamine (TRANSDERM-SCOP) 1.5 mg patch Patch Verification Transdermal, 2 TIMES DAILY, First dose on Mon03/03/16 at 1945, Until Discontinued, Verify scopolamine 1.5 mg patch. sodium chloride 0.9 % flush 5 mL 5 mL, Intravenous, 2 TIMES DAILY, First dose on Mon03/03/16 at 2100, Until Discontinued, Recovery (Recovery-Hospital Unit), Routine Given 03/03/2016 8:21 PM EST 5 mLs sodium chloride 0.9% with potassium chloride 20 mEq infusion 75 mL/hr, Intravenous, CONTINUOUS, Starting on Mon03/03/16 at 1545, Until Mon03/04/16 at 0857, Warning Vesicant/Irritant Medication , Recovery (Recovery-Hospital Unit) New Bag 03/04/2016 5:39 AM EST 75 mL/hr 75 mL/hr Rate/Dose Verify 03/03/2016 6:00 PM EST 75 mL/hr 75 mL/h r Rate/Dose Verify 03/03/2016 4:00 PM EST 75 mL/hr 75 mL/h r documented in this encounter Active and Recently Administered Medications Times are shown in EST. Scheduled Medication Order 03/04/2016 03/05/2016 03/06/2016 acetaminophen (TYLENOL) tablet 650 mg(Linked Group 1) 650 mg, Oral, EVERY 4 HOURS SCHEDULED, First dose (after last modification) on Mon03/04/16 at 0000, Until Discontinued, May repeat once in 30 minutes if desired effect not achieved. Do not exceed 4000 mg acetaminophen per day., Routine 0002 (Given - Provider: Kayleigh Rojas RN)0430 (Given - Provider: Kayleigh Rojas RN)0907 (Given - Provider: Jose Alfredo Waller RN)1200 (Given - Provider: Jose Alfredo Waller RN)1600 (Given - Provider: Jose Alfredo Waller RN)1957 (Given - Provider: Dona Vora RN)2359 (Given - Provider: Dona Vora RN) 0426 (Given - Provider: Dona Vora RN)0830 (Given - Provider: Michaelle Guzmán, EBONIE)1217 (Given - Provider: Michaelle Guzmán, EBONIE)1628 (Given - Provider: Michaelle Guzmán, EBONIE)2044 (Given - Provider: Dona Vora RN) 0042 (Given - Provider: Dona Vora RN)0441 (Given - Provider: Dona Vora RN)0815 (Given - Provider: Lissett Montilla, EBONIE)1306 (Given - Provider: Lissett Montilla RN - Comment: pt requesting to take with next dose of PRN oxycodone.)1600 (Given - Provider: Lissett Montilla RN) amLODIPine (NORVASC) tablet 10 mg 10 mg, Oral, DAILY, First dose on Mon03/04/16 at 0900, Until Discontinued, Routine 0908 (Given - Provider: Jose Alfredo Waller RN) 0831 (Given - Provider: Michaelle Guzmán, EBONIE) 0815 (Given - Provider: Lissett Montilla RN) ceFAZolin (ANCEF) 1g in dextrose 5% 50mL (COMPLETED) 1,000 mg (1 g), Intravenous, EVERY 8 HOURS, 3 doses, First dose on Diana 03/03/16 at 2100, Last dose on Mon03/04/16 at 1300, Administer over 30 Minutes, Recovery (Recovery-Hospital Unit), Indication for (Active or Suspected): Prophylaxis 0434 (Given - Provider: Kayleigh Rojas RN)1300 (Given - Provider: Jose Alfredo Waller RN) dexamethasone (DECADRON) tablet 4 mg(Linked Group 2) 4 mg, Oral, EVERY 6 HOURS, First dose on Diana 03/03/16 at 1600, Until Discontinued, Routine 0430 (Given - Provider: Kayleigh Rojas RN)0908 (Given - Provider: Jose Alfredo Waller RN)1600 (Given - Provider: Jose Alfredo Waller RN)2116 (Given - Provider: Dona Vora RN) 0426 (Given - Provider: Dona Vora RN)0937 (Given - Provider: Michaelle Guzmán, EBONIE)1633 (Given - Provider: Michaelle Guzmán RN)2104 (Given - Provider: Dona Vora RN) 0441 (Given - Provider: Dona Vora RN)0903 (Given - Provider: Lissett Montilla, EBONIE)1530 (Given - Provider: Lissett Montilla RN) famotidine (PEPCID) tablet 20 mg(Linked Group 3) 20 mg, Oral, EVERY 12 HOURS, First dose on Diana 03/03/16 at 2100, Until Discontinued, Routine 0907 (Given - Provider: Jose Alfredo Waller RN)2116 (Given - Provider: Dona Vora RN) 0830 (Given - Provider: Michaelle Guzmán RN)2044 (Given - Provider: Dona Vora RN) 0814 (Given - Provider: Lissett Montilla RN) FLUoxetine (PROzac) capsule 20 mg 20 mg, Oral, DAILY, First dose on Mon03/04/16 at 0900, Until Discontinued, Routine 0908 (Given - Provider: Jose Alfredo Waller RN) 0831 (Given - Provider: Michaelle Guzmán RN) 0815 (Given - Provider: Lissett Montilla RN) hydroCHLOROthiazide (HYDRODIURIL) tablet 25 mg 25 mg, Oral, DAILY, First dose on Mon03/04/16 at 0900, Until Discontinued, Routine 0908 (Given - Provider: Jose Alfredo Waller RN) 0831 (Given - Provider: Michaelle Guzmán RN) 0814 (Given - Provider: Lissett Montilla RN) losartan (COZAAR) tablet 100 mg 100 mg, Oral, DAILY, First dose on Mon03/04/16 at 0900, Until Discontinued, Routine 0907 (Given - Provider: Jose Alfredo Waller RN) 0831 (Given - Provider: Michaelle Guzmán RN) 0814 (Given - Provider: Lissett Montilla RN) scopolamine (TRANSDERM-SCOP) 1.5 mg (1 mg over 3 days) patch 1 patch(Linked Group 4) 1 patch, Transdermal, EVERY 72 HOURS, First dose on Mon03/03/16 at 0800, Until Discontinued, Routine 0817 (Patch Applied - Provider: Lissett Montilla RN) scopolamine (TRANSDERM-SCOP) 1.5 mg patch Patch Removal(Linked Group 4) Transdermal, EVERY 72 HOURS, First dose on Mon03/06/16 at 0745, Until Discontinued, Remove scopolamine 1.5 mg patch 0745 (Patch Removed - Provider: Lissett Montilla RN) scopolamine (TRANSDERM-SCOP) 1.5 mg patch Patch Verification(Linked Group 4) Transdermal, 2 TIMES DAILY, First dose on Mon03/03/16 at 1945, Until Discontinued, Verify scopolamine 1.5 mg patch. 0900 (Patch (dose and location) verified - Provider: Jose Alfredo Waller RN)2100 (Patch (dose and location) verified - Provider: Dona Vora RN) 0900 (Patch (dose and location) verified - Provider: Michaelle Guzmán RN)2100 (Patch (dose and location) verified - Provider: Dona Vora RN) 0900 (Patch (dose and location) verified - Provider: Lissett Montilla RN) Continuous Medication Order 03/04/2016 03/05/2016 03/06/2016 sodium chloride 0.9% with potassium chloride 20 mEq infusion (CANCELED) 75 mL/hr, Intravenous, CONTINUOUS, Starting on Diana 03/03/16 at 1545, Until Mon03/04/16 at 0857, Warning Vesicant/Irritant Medication , Recovery (Recovery-Hospital Unit) 0539 (New Bag - Provider: Kayleigh Rojas RN) PRN Medication Order 03/04/2016 03/05/2016 03/06/2016 albuterol (PROVENTIL HFA;VENTOLIN HFA;PROAIR) 90 mcg/actuation inhaler 2 puff 2 puff, Inhalation, EVERY 4 HOURS PRN, Starting on Diana 03/03/16 at 1518, Until Mon03/06/16 at 1734, Wheezing, Routine bisacodyl (DULCOLAX) EC tablet 10 mg 10 mg, Oral, 2 TIMES DAILY PRN, Starting on Diana 03/03/16 at 1518, Until Mon03/06/16 at 1734, Constipation, DO NOT CRUSH OR OPEN Administer [...] 10 mg, Rectal, DAILY PRN, Starting on Diana 03/03/16 at 1518, Until 03/06/16 at 1734, Constipation, Administer if needed per patient's routine or if no bowel movement within 48 hours to achieve: 1) One bowel movement at least every 48 hours, AND 2) Without straining. If multiple bowel medications ordered, consider adding bisacodyl if polyethylene glycol (MIRALAX) and lactulose not sufficient. If patient unable to take PO, may give MA if ordered, Routine fentaNYL 50mcg/mL injection (CANCELED) 25 mcg, Intravenous, EVERY 1 HOUR PRN, Starting on Diana 03/03/16 at 1518, Until Mon03/04/16 at 0857, Pain, PRN BTP, Routine 0100 (Given - Provider: Kayleigh Rojas, EBONIE)0524 (Given - Provider: Kayleigh Rojas RN)0809 (Given - Provider: Jose Alfredo Waller RN) hydrALAZINE (APRESOLINE) injection 10 mg 10 mg, Intravenous, EVERY 2 HOURS PRN, Starting on Diana 12 at 1518, Until Sun 12 at 1734, High Blood Pressure, SBP > 140, For SBP greater than 140 mmHg. May repeat once in 15 minutes if blood pressure remains greater than 140 mmHg.Use if labetolo ineffective after 2 doses., Routine labetalol (NORMODYNE,TRANDATE) injection 20 mg 20 mg, Intravenous, EVERY 2 HOURS PRN, Starting on Diana 12 at 1518, Until Sun 12 at 1734, High Blood Pressure, SBP > 140, SBP greater than 140 mmHg. May repeat once in 15 minutes if blood pressure remains greater than 140 mmHg., Routine 0614 (Given - Provider: Dona Vora RN) metoclopramide (REGLAN) injection 10 mg 10 mg, Intravenous, EVERY 8 HOURS PRN, Starting on Diana 12 at 1518, Until Sun 12 at 1734, Nausea, Vomiting, If multiple antiemetics are ordered, use ondansetron first, prochlorperazine second, and metoclopramide third. ondansetron (ZOFRAN) injection 4 mg(Linked Group 5) 4 mg, Intravenous, EVERY 8 HOURS PRN, Starting on Diana 12 at 1518, Until Sun 12 at 1734, Nausea, Vomiting, May repeat times one in 30 minutes if ineffective. If multiple antiemetics are ordered, use ondansetron first, prochlorperazine second, and metoclopramide third. ondansetron (ZOFRAN-ODT) oral disintegrating tablet 4 mg(Linked Group 5) 4 mg, Oral, EVERY 8 HOURS PRN, Starting on Diana 1216 at 1518, Until Sun 12 at 1734, Nausea, May repeat in 30 minutes if ineffective. If multiple antiemetics are ordered, use ondansetron first, prochlorperazine second, and metaclopramide third., Routine oxyCODONE (ROXICODONE) immediate release tablet 10 mg(Linked Group 6) 10 mg, Oral, EVERY 4 HOURS PRN, Starting on Diana 1216 at 2303, Until Sun 12 at 1734, Pain, moderate pain (4-6), May give additional 5 mg in 30 minutes once if pain not relieved., Routine 226 (See Alternative - Provider: Kayleigh Rojas RN)06 (See Alternative - Provider: Kayleigh Rojas RN)111 (See Alternative - Provider: Jose Alfredo Waller RN)152 (See Alternative - Provider: Jose Alfredo Waller RN)195 (See Alternative - Provider: Dona Vora RN)2359 (See Alternative - Provider: Dona Vora RN) 0426 (See Alternative - Provider: Dona Vora RN)0830 (Given - Provider: Michaelle Guzmán RN)1217 (Given - Provider: Michaelle Guzmán RN)1629 (Given - Provider: Michaelle Guzmán, EBONIE)2044 (See Alternative - Provider: Dona Vora RN) 0042 (See Alternative - Provider: Dona Vora RN)0441 (Given - Provider: Dona Vora RN)0903 (Given - Provider: Lissett Montilla, EBONIE)1306 (Given - Provider: Lissett Montilla RN) oxyCODONE (ROXICODONE) immediate release tablet 15 mg(Linked Group 6) 15 mg, Oral, EVERY 4 HOURS PRN, Starting on Diana 1216 at 2303, Until Sun 1216 at 1734, Pain, severe pain or opiate tolerant patient (7-10), Do not start patient with 15 mg dose. Do not give 15 mg if patient is opiate niave., Routine 226 (Given - Provider: Kayleigh Rojas RN)06 (Given - Provider: Kayleigh Rojas RN)111 (Given - Provider: Jose Alfredo Waller RN)152 (Given - Provider: Jose Alfredo Waller RN)1956 (Given - Provider: Dona Vora RN)235 (Given - Provider: Dona Vora RN) 0426 (Given - Provider: Dona Vora RN)0830 (See Alternative - Provider: Michaelle Guzmán, EBONIE)1217 (See Alternative - Provider: Michaelle Guzmán, EBONIE)162 (See Alternative - Provider: Michaelle Guzmán, EBONIE)2044 (Given - Provider: Dona Vora RN) 0042 (Given - Provider: Dona Vora RN)0441 (See Alternative - Provider: Dona Vora RN)0903 (See Alternative - Provider: Lissett Montilla, EBONIE)1306 (See Alternative - Provider: Lissett Montilla RN) oxyCODONE (ROXICODONE) immediate release tablet 5 mg(Linked Group 6) 5 mg, Oral, EVERY 4 HOURS PRN, Starting on Diana 03/03/16 at 2303, Until 03/06/16 at 1734, Pain, mild pain (1-3), May give additional 5 mg in 30 minutes once if pain not relieved., Routine 0227 (See Alternative - Provider: Kayleigh Rojas RN)0627 (See Alternative - Provider: Kayleigh Rojas RN)1114 (See Alternative - Provider: Jose Alfredo Waller RN)152 (See Alternative - Provider: Jose Alfredo Waller RN)1956 (See Alternative - Provider: Dona Vora RN)2358 (See Alternative - Provider: Dona Vora RN) 0426 (See Alternative - Provider: Dona Vora RN)0830 (See Alternative - Provider: Michaelle Guzmán, EBONIE)1217 (See Alternative - Provider: Michaelle Guzmán, EBONIE)1629 (See Alternative - Provider: Michaelle Guzmán, EBONIE)2044 (See Alternative - Provider: Dona Vora RN) 0042 (See Alternative - Provider: Dona Vora RN)0441 (See Alternative - Provider: Dona Vora RN)0903 (See Alternative - Provider: Lissett Montilla RN)1306 (See Alternative - Provider: Lissett Montilla RN) polyethylene glycol (MIRALAX) packet 17 g 17 g, Oral, DAILY PRN, Starting on Mon03/03/16 at 1518, Until Mon03/06/16 at 1734, Constipation, Administer if needed per patient's routine or if no bowel movement within 48 hours to achieve: 1) One bowel movement at least every 48 hours, AND 2) Without straining. If multiple bowel medications ordered, consider polyethylene glycol(MIRALAX) first., Routine 2043 (Given - Provider: Dona Vora RN) 1034 (Given - Provider: Lissett Montilla RN) Linked Groups Order Group 1: acetaminophen (TYLENOL) tablet 650 mgJump to med 650 mg, Oral, EVERY 4 HOURS SCHEDULED, First dose (after last modification) on Mon03/04/16 at 0000, Until Discontinued, May repeat once in 30 minutes if desired effect not achieved. Do not exceed 4000 mg acetaminophen per day., Routine Or acetaminophen (TYLENOL) suppository 650 mg (CANCELED) 650 mg, Rectal, EVERY 4 HOURS SCHEDULED, First dose (after last modification) on Mon03/04/16 at 0000, Until Discontinued, May repeat once in 30 minutes if desired effect not achieved. Do not exceed 4000 mg acetaminophen per day., Routine Group 2: dexamethasone (DECADRON) injection 4 mg (CANCELED) 4 mg, Intravenous, EVERY 6 HOURS, First dose on Diana 03/03/16 at 1600, Until Discontinued, Routine Or dexamethasone (DECADRON) tablet 4 mgJump to med 4 mg, Oral, EVERY 6 HOURS, First dose on Diana 03/03/16 at 1600, Until Discontinued, Routine Group 3: famotidine (PEPCID) tablet 20 mgJump to med 20 mg, Oral, EVERY 12 HOURS, First dose on Diana 03/03/16 at 2100, Until Discontinued, Routine Or famotidine (PEPCID) injection 20 mg (CANCELED) 20 mg, Intravenous, EVERY 12 HOURS, First dose on Diana 03/03/16 at 2100, Until Discontinued Group 4: scopolamine (TRANSDERM-SCOP) 1.5 mg (1 mg over 3 days) patch 1 patchJump to med 1 patch, Transdermal, EVERY 72 HOURS, First dose on Diana 03/03/16 at 0800, Until Discontinued, Routine And scopolamine (TRANSDERM-SCOP) 1.5 mg patch Patch VerificationJump to med Transdermal, 2 TIMES DAILY, First dose on Diana 03/03/16 at 1945, Until Discontinued, Verify scopolamine 1.5 mg patch. And scopolamine (TRANSDERM-SCOP) 1.5 mg patch Patch RemovalJump to med Transdermal, EVERY 72 HOURS, First dose on 03/06/16 at 0745, Until Discontinued, Remove scopolamine 1.5 mg patch Group 5: ondansetron (ZOFRAN-ODT) oral disintegrating tablet 4 mgJump to med 4 mg, Oral, EVERY 8 HOURS PRN, Starting on Diana 03/03/16 at 1518, Until 03/06/16 at 1734, Nausea, May repeat in 30 minutes if ineffective. If multiple antiemetics are ordered, use ondansetron first, prochlorperazine second, and metaclopramide third., Routine Or ondansetron (ZOFRAN) injection 4 mgJump to med 4 mg, Intravenous, EVERY 8 HOURS PRN, Starting on Diana 03/03/16 at 1518, Until 03/06/16 at 1734, Nausea, Vomiting, May repeat times one in 30 minutes if ineffective. If multiple antiemetics are ordered, use ondansetron first, prochlorperazine second, and metoclopramide third. Group 6: oxyCODONE (ROXICODONE) immediate release tablet 5 mgJump to med 5 mg, Oral, EVERY 4 HOURS PRN, Starting on Diana 03/03/16 at 2303, Until 03/06/16 at 1734, Pain, mild pain (1-3), May give additional 5 mg in 30 minutes once if pain not relieved., Routine Or oxyCODONE (ROXICODONE) immediate release tablet 10 mgJump to med 10 mg, Oral, EVERY 4 HOURS PRN, Starting on Diana 03/03/16 at 2303, Until 03/06/16 at 1734, Pain, moderate pain (4-6), May give additional 5 mg in 30 minutes once if pain not relieved., Routine Or oxyCODONE (ROXICODONE) immediate release tablet 15 mgJump to med 15 mg, Oral, EVERY 4 HOURS PRN, Starting on Diana 03/03/16 at 2303, Until 03/06/16 at 1734, Pain, severe pain or opiate tolerant patient (7-10), Do not start patient with 15 mg dose. Do not give 15 mg if patient is opiate niave., Routine documented in this encounter Care Teams Derrick Barge Operator Relationship Specialty Start Date End Date Elizabeth Armenta MD [facility] [address] [place] [address] PCP - General 08/22/14 01/12/21 documented as of this encounter
--- OUTSIDE RECORDS SUMMARY | 2023-10-16 15:20 | XMS_ITS | Encounter Summary ---
Author Organization [facility] [place] [address] Care Team Providers Care [employer] Science Teacher Name Role Phone Elizabeth Armenta MD Primary Care Provider [phone] Encounter Details Date Type Department Care Team (Late st Contact Info) Description 02/23/2016 9:30 AM EST Office Visit [address] [id number] Norman Lockhart MD [address] [place] [address] HEMATOLOGY/[place] [address] Social History Tobacco Use Types Packs/Day Years [...] on filedocumented in this encounter Care Teams [employer] Science Teacher Relationship Specialty Start Date End Date Elizabeth Armenta MD [facility] [address] [place] [address] PCP - General 08/22/14 01/12/21 documented as of this encounter
--- OUTSIDE RECORDS SUMMARY | 2023-10-16 15:20 | XMS_ITS | Encounter Summary ---
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 Incision: friend will remove dressing today Sutures to be removed here on 03/17/16 Pain: neck stiffness, 06/16, took Oxycodone 5 mg at 8:30 this am-feeling good, will take Tylenol prn PO: eating less than normal but OK B&B: urinating ok, no BM-will get Miralax Sleep: good Other: documented in this encounter Plan of Treatment Not on file documented as of this encounter Visit Diagnoses Not on filedocumented in this encounter Care Teams Carpenter Assembler Relationship Specialty Start Date End Date Elizabeth Armenta MD [facility] [address] [place] [address] PCP - General 08/22/14 01/12/21 documented as of this encounter
--- OUTSIDE RECORDS SUMMARY | 2023-10-16 15:20 | XMS_ITS | Encounter Summary ---
Author Organization [facility] Address [facility] [place] [address] Care Team Providers Care Lead Sustainability Specialist Name Role Phone Elizabeth Armenta MD Primary Care Provider [phone] Reason for Visit * Auth/Cert Specialty Diagnoses [...] Expiration Date Visits Re quested Visits Authorized [id number] 1 1 Encounter Details Date Type Department Care Team (Late st Contact Info) Description 03/03/2016 7:30 AM EST - 03/03/2016 1:59 PM EST Surgery [place] [id number] Henry Chaves MD [facility] [place] [address] TISSUE GRAFT, PARATENON, FAT, DERMIS (OTHER) (WRVU 5.79) Social History Tobacco Use Types Packs/Day Years [...] Sign Reading Time Taken Comments Blood Pressure 154/77 03/03/2016 6:20 AM EST Pulse 87 03/03/2016 6:20 AM EST Temperature 36.6 ??C (97.9 ??F) 03/03/2016 6:20 AM ES T Respiratory Rate 18 03/03/2016 6:20 AM EST Oxygen Saturation 97% 03/03/2016 6:20 AM EST Inhaled Oxygen Concentration - - Weight 64.9 kg (143 lb) 03/03/2016 6:20 AM EST Height 162.6 cm (5' 4) 03/03/2016 6:20 AM EST Body Mass Index 24.55 03/03/2016 6:20 AM EST documented in this encounter Discharge Summaries * Jeanmarie Martinez MD - 03/06/2016 3:28 PM EST Neurosurgery Discharge Summary Patient Name: Latisha Felpie Patient Age: 70 y.o. Birthdate: 1945 Admit [...] schedule, please call the nurse practitioner at [phone] or your Neurosurgeon. [X] Proton Pump Inhibitor: [...] your usual routine, 4 days after surgery. -Sutures/Miguel Angel are to be removed in 10 to [...] Magnesia), may be used as needed. These ebzn-jxr-gacwouw (OTC) medications are available at your pharmacy without a prescription. Call the neurosurgery SAFEKEEPING CLERK head turbine operator if you have questions. Activity: -You are [...] Primary Care Provider [x] With the Neurosurgery SAFEKEEPING CLERK/RN IMPORTANT PHONE NUMBERS: Outpatient Nurse (Pat Mcgowan) Inpatient Nurses Neurosurgical Resident Senior Asp Net Developer (after 5pm or before 8am) Neurosurgery offices (between 8am-5pm): Dr. Kelly Dr. [place]: Pediatric Patients , Adult Patients Dr. Chaves Dr. Jones Dr. Stevens Dr. Stoll Quang Lakhani, Physician Plaster And Stucco Worker Caryl Young, Nurse Practitioner Quang Armas, Physician Plaster And Stucco Worker Deidra Estrada, Nurse Practitioner * Your surgeon may not be planner scheduler, so be ready to tell about yourself and your surgery when you call, especially after hours or on the weekend. CC: Elizabeth Armenta MD General Instructions None Scheduled Appointments and VNA instructions: Future Appointments and Orders Future Orders Complete By Expires MRI Brain With/WO Contrast (GENERIC) [SCL169 Custom] 03/07/2016 (Approximate) 03/06/2017 Process Instructions: Scheduling Instructions: Questions: Where will study be performed?: [facility] Reason for exam and clinical history: s/p resection acoustic neuroma, 3-month imaging Other pertinent information: Stat read required?: Does patient require sedation?: GA rationale: Date of injury if applicable: Requested Time: Primary Care Doctor: Elizabeth Armenta MD [phone] Signed: JEANMARIE MARTINEZ MD 03/06/2016 documented in [...] schedule, please call the nurse practitioner at [phone] or your Neurosurgeon. [X] Proton Pump Inhibitor: [...] your usual routine, 4 days after surgery. -Sutures/[place] are to be removed in 10 to [...] Magnesia), may be used as needed. These eeiw-phf-nllhrks (OTC) medications are available at your pharmacy without a prescription. Call the neurosurgery SAFEKEEPING CLERK head turbine operator if you have questions. Activity: -You are [...] Primary Care Provider [x] With the Neurosurgery SAFEKEEPING CLERK/RN IMPORTANT PHONE NUMBERS: Outpatient Nurse (Pat Mcgowan) Inpatient Nurses Neurosurgical Resident Senior Asp Net Developer (after 5pm or before 8am) Neurosurgery offices (between 8am-5pm): Dr. Kelly Dr. [place]: Pediatric Patients , Adult Patients Dr. Chaves Dr. Jones Dr. Stevens Dr. Stoll Quang Lakhani, Physician Plaster And Stucco Worker Caryl Young, Nurse Practitioner Quang Armas, Physician Plaster And Stucco Worker Deidra Estrada, Nurse Practitioner * Your surgeon may not be planner scheduler, so be ready to tell about yourself [...] as of this encounter Progress Notes * Louzier, Lissett L, RN - 03/06/2016 3:06 PM EST Latisha Felipe discharged [place] by private car with her family. All [...] Elizabeth Sapp - 03/04/2016 11:00 AM EST [place] Encounter Note Patient Name: Latisha Felipe : [id number] MR#: [id number] Admit Date: 03/03/2016 6:07 AM Hospital Day 1 day Narrative: Initiated visit on rounds. Pt was awake and alert resting quietly in bed, receptive to visit. Assessment: Pt was lying in bed awake and alert and receptive to visit. She expressed feeling good after surgery and explained condition. She shared she had no mandaen but had a strong perla in God, who shefelt was part of her and everyone and just a fact of life. Inquired about this technical document writer's perla tr adition and was engaging and interested in conversation but expressed apology for feeling sleepy asa sedative was taking effect. She expressed appreciation for the visit and any return visits. Intervention and Outcome: Provided conversation and listening presence. Follow-up: [place] available on request, pager #[phone] Time in Direct Care: <5min Elizabeth Sapp [...] ULTRASOUND performed by Rigoberto Angel MD at [facility] Allergies: Allergies Allergen Reactions ??? Sulfa [...] 03/03/16 1203 03/03/16 0844 PHART 7.46* 7.44 [id number] 34* 36 PO2ART 180* 341* [id number] 23.5 24.0 Physical Exam: General: Resting comfortably [...] 03/03/16 1203 03/03/16 0844 PHART 7.46* 7.44 [id number] 34* 36 PO2ART 180* 341* BEART -0.3 -0.1 Imaging/Other Studies: - no new imaging Assessment: Latisha Feilpe is a 70 y.o. female s/p crani [...] in this encounter Procedure Notes * Carlos Prara MD - 03/03/2016 3:34 PM EST NEURODIAGNOSTIC LABORATORY [facility] INTRAOPERATIVE MONITORING REPORT Name: Latisha Felipe MR# [id number] 1945 Date of Surgery: 03/03/2016 Surgeon(s): Henry [...] ipsilateral first dorsal interosseous muscle. CPT Codes: 96459 (EEG), 94844 (CN EMG unilateral 9 muscles), 76235 (tcMEP upper extremity), 81748 (upper extremity SSEP bilateral), 07438 (IOM, 5 units), 79183 (IOM, 4 hours), Total IOM time: 5 [...] at times. Handheld stimulated EMG using a Stretchr monopolar stimulator was used very frequently by [...] Outcome: Ongoing (Interventions Implemented as Appropriate) 03/06/16 0527 Coping/Psychosocial Plan Of Care Reviewed With patient [...] for Hospitalization: Acoustic neuroma s/p excision. From [facility] Daily Note: 70 y/o female s/p suboccipital [...] need for a family meeting or an senior human resources representative at this time. Current Functional Ability: independent with ADL's/IADL's. Functional Status Prior to Admission: independent with ADL's/IADL's and she did not require any DME. Home Environment: pt's lives alone in a house in [place], [place] that has 2 steps up to [...] Insurance: Medicare Part A Only [facility] Prescription Coverage: yes Preferred Pharmacy: [facility] in [place], [place]. Other: none. Primary Care Provider: Elizabeth Armenta MD [phone] Patient/Caregiver Goals of Treatment: anticipate outpatient follow up at [facility]. Pt remains independentwith ADL's/IADL's and has a [...] and assist with transition of care planning. Meat Blender Stephan Bone RN, BSN Pager #[phone] * Op Note - Tanya Aguilera MD - 03/04/2016 8:[address] [facility] [place] Note Patient Name: Latisha eFlipe : [id number] MR#: [id number] Case Date: 03/03/2016 Surgeon: Surgeon(s) and Role: [...] ; Age: 7 1945; 70 y.o. Room/Bed: [address] Today's Date: 03/04/16 Subjective: Patient ID: Latisha Felipe ([id number]) is a 70 y.o. female who is [...] 3222 [P.O.:60; I.V.:3162] Out: 1300 [Urine:1200] 03/03 190 - 03/04 0700 In: 957 [I.V.:957] Out: [...] Full Code Hossein Martinez (Tito) MS3 Pager: [phone] * Plan of Care - Kayleigh Rojas [...] Ongoing (Interventions Implemented as Appropriate) 03/03/16199903/04/16 0200 Garvey Fall Risk History of Falling 0 [...] Overview Goal: Plan of Care Review 03/03/16 1837 Coping/Psychosocial Plan Of Care Reviewed With patient [...] Chaves MD - 03/03/2016 2:[address] [facility] Operative Note Patient Name: Latisha Felipe : [id number] MR#: [id number] Case Date: 03/03/2016 Surgeon: Surgeon(s) and Role: [...] Procedure Name Priority Date/Time Associated Diagnosis Comments QUALITY SYSTEMS ENGINEER SCAN 03/07/2016 12:00 AM EST BASIC METABOLIC [...] in this encounter Results * SCAN DOC: QUALITY SYSTEMS ENGINEER (03/07/2016 12:00 AM EST) Anatomical Region Laterality Modality Other Scanning Provider MEDIA MGR SCAN EXT O RDR/RSLT * (ABNORMAL) Basic Metabolic Panel (non-fasting) (03/06/2016 4:56 AM EST) Glucose Lvl 159 65 - 199 mg/dL [facility] Comment:Diabetes: >=200 mg/d L plus symptoms BUN 16 8 - 18 mg/dL [facility] Creatinine 0.68(L) 0.70 - 1.20 mg/dL [facility] Comment: Please note that the pediatric reference intervals supplied above were not validated at [facility]. Results from pediatric patients should be interpreted in conjunction to the patient's age, height and muscle mass. Sodium 138 135 - 145 mmol/L [facility] Potassium 4.1 3.5 - 5.0 mmol/L [facility] Comment: Please note: ??Patients with WBC >100,000 may have falsely elevated Potassium levels. ??For accurate Potassium quantification in these patients send serum separator tube (gold top) for subsequent determinations. ??Contact the Clinical Chemistry Laboratory if there are any questions. Chloride 95(L) 98 - 107 mmol/L [facility] CO2 29 22 - 31 mmol/L [facility] Anion Gap 14 5 - 15 mmol/L [facility] Calcium 9.2 8.5 - 10.5 mg/dL [facility] Estimated GFR >60 >=60 [place] [...] the following links into your internet browser. [email or web address] Blood specimen (specimen) 03/06/2016 4:56 AM EST 03/06/2016 5:05 AM EST Narrative Resulting Agency Comment Spec In Lab Henry Chaves MD CHEMISTRY ORDERABLES [facility] [place] [address] * (ABNORMAL) Basic Metabolic Panel (non-fasting) (03/05/2016 6:30 AM EST) Glucose Lvl 151 65 - 199 mg/dL [facility] Comment:Diabetes: >=200 mg/d L plus symptoms BUN 14 8 - 18 mg/dL [facility] Creatinine 0.71 0.70 - 1.20 mg/dL [facility] Comment: Please note that the pediatric reference intervals supplied above were not validated at [facility]. Results from pediatric patients should be interpreted in conjunction to the patient's age, height and muscle mass. Sodium 136 135 - 145 mmol/L [facility] Potassium 4.0 3.5 - 5.0 mmol/L [facility] Comment: Please note: ??Patients with WBC >100,000 may have falsely elevated Potassium levels. ??For accurate Potassium quantification in these patients send serum separator tube (gold top) for subsequent determinations. ??Contact the Clinical Chemistry Laboratory if there are any questions. Chloride 96(L) 98 - 107 mmol/L [facility] CO2 29 22 - 31 mmol/L [facility] Anion Gap 11 5 - 15 mmol/L [facility] Calcium 8.7 8.5 - 10.5 mg/dL [facility] Estimated GFR >60 >=60 [place] [...] the following links into your internet browser. [email or web address] Blood specimen (specimen) 03/05/2016 6:30 AM EST 03/05/2016 6:48 AM EST Narrative Resulting Agency Comment Spec In Lab Henry Chaves MD CHEMISTRY ORDERABLES [facility] [place] [address] * (ABNORMAL) Differential, Manual (03/04/2016 12:55 AM EST) Neutrophil % 24 % [facility] Lymphocyte % 72 % [facility] Monocyte % 4 % [facility] Neutrophil Abs 5.5 1.5 - 6.3 x10(3)/[facility] LABORATORY Neutr Abs (ANC) 5.49 1.70 - 6.10 x10(3)/[facility] LABORATORY Lymphocyte Abs 16.5(H) 1.0 - 3.6 x10(3)/[facility] LABORATORY Monocyte Abs 0.9 0.2 - 1.0 x10(3)/[facility] LABORATORY Tot Diff Cell Ct 100 [facility] Plat Estimate Normal [facility] RBC Morphology Abnormal [facility] Ovalocytes 1-5 /HPF [facility] Atypical Lymph Moderate [facility] Smudge Cells Present [facility] Blood specimen (specimen) 03/04/2016 12:55 AM EST 03/04/2016 1:04 AM EST Narrative Resulting Agency Comment Spec In Lab Henry Chaves MD HEMATOLOGY ORDERABLE S [facility] [place] [address] * (ABNORMAL) Hemogram (03/04/2016 12:55 AM EST) WBC 22.9(H) 4.0 - 9.5 x10(3)/[facility] LABORATORY RBC 3.94(L) 4.00 - 5.21 x10(6)/[facility] Hemoglobin 11.5(L) 11.7 - 15.5 gm/dL [facility] Hematocrit 34.1(L) 35.7 - 45.8 % [facility] MCV 86.5 82.6 - 94.4 [facility]ATORY MCH 29.2 27.1 - 32.0 pg [facility] MCHC 33.7 31.7 - 35.0 gm/dL [facility] Platelets 155 145 - 357 x10(3)/[facility] LABORATORY RDWSD 40.3 37.0 - 46.0 [facility]ORY RDWCV 12.7 11.5 - 14.1 % [facility] MPV 9.4 7.6 - 12.9 fL [facility] nRBC % Auto 0.2 % [facility] nRBC Abs Auto 0.040(H) 0.000 - 0.000 x10(3)/[facility] LABORATORY Blood specimen (specimen) 03/04/2016 12:55 AM EST 03/04/2016 1:04 AM EST Narrative Resulting Agency Comment Spec In Lab Henry Chaves MD HEMATOLOGY ORDERABLE S [facility] [place] [address] * (ABNORMAL) Basic Metabolic Panel (non-fasting) (03/04/2016 12:55 AM EST) Glucose Lvl 146 65 - 199 mg/dL [facility] Comment:Diabetes: >=200 mg/d L plus symptoms BUN 15 8 - 18 mg/dL [facility] Creatinine 0.74 0.70 - 1.20 mg/dL [facility] Comment: Please note that the pediatric reference intervals supplied above were not validated at [facility]. Results from pediatric patients should be interpreted in conjunction to the patient's age, height and muscle mass. Sodium 139 135 - 145 mmol/L [facility] Potassium 3.6 3.5 - 5.0 mmol/L [facility] Comment: Please note: ??Patients with WBC >100,000 may have falsely elevated Potassium levels. ??For accurate Potassium quantification in these patients send serum separator tube (gold top) for subsequent determinations. ??Contact the Clinical Chemistry Laboratory if there are any questions. Chloride 102 98 - 107 mmol/L [facility] CO2 24 22 - 31 mmol/L [facility] Anion Gap 13 5 - 15 mmol/L [facility] Calcium 8.2(L) 8.5 - 10.5 mg/dL [facility] Estimated GFR >60 >=60 [place] [...] the following links into your internet browser. [email or web address] Blood specimen (specimen) 03/04/2016 12:55 AM EST 03/04/2016 1:04 AM EST Narrative Resulting Agency Comment Spec In Lab Henry Chaves MD CHEMISTRY ORDERABLES Performing Organization Address [facility] Co de Phone Number [facility] [place] [address] * Specimen to Pathology (surgical or derm) (03/03/2016 1:46 PM EST) AP Specimen 03/03/2016 1:46 PM EST 03/03/2016 1:46 PM EST Narrative [facility] - 03/03/2016 1:46 PM EST Specimen requisition ordered. ??Separate Pathology report to follow Henry Chaves MD PATHOLOGY/CYTOLOGY O RDERABLES Performing Organization Address [facility] Co de Phone Number [facility] [place] [address] * (ABNORMAL) BLOOD GAS 2 ARTERIAL (03/03/2016 12:03 PM EST) pH Art 7.46(H) 7.35 - 7.45 [facility] pCO2 Art 34(L) 35 - 45 mmHg [facility] pO2 Art 180(H) 85 - 104 mmHg [facility] HCO3 Art 23.5 20.0 - 26.0 mmol/L [facility] BE Art -0.3 -3.0 - 3.0 mmol/L [facility] Hgb Blood Gas 13.2 11.7 - 15.5 gm/dL [facility] O2HB Art 98.3(H) 94.0 - 97.0 % [facility] COHB Art 0.6 % [facility] Comment: Nonsmokers: 0.5-1.5% COHB Smokers: Variable, but usually less than 10% Toxic: 20-30% COHB Lethal: Greater than 60% COHB METHB Art 0.3 <=1.5 % [facility] Na Whole Blood 142 135 - 145 mmol/L [facility] K Whole Blood 3.5 3.5 - 5.0 mmol/L [facility] Comment: Please note: Patients with WBC >100,000 may have falsely elevated Potassium levels. Contact the Clinical Chemistry Laboratory if there are any questions. ICa Whole Blood 1.17 1.15 - 1.33 mmol/L [facility] Comment: Note: ??Total bilirubin higher than 20 mg/dL may lead to falsely low ionized calcium. CL Whole Blood 106 98 - 107 mmol/L [facility] Gluc Whole Bld 147 65 - 199 mg/dL [facility] Comment:Diabetes: >=200 mg/d L plus symptoms. Lactate WB 2.0 0.5 - 2.2 mmol/L [facility] Blood specimen (specimen) 03/03/2016 12:03 PM EST 03/03/2016 12:03 PM EST Henry Chaves MD CHEMISTRY ORDERABLES Performing Organization Address City/State/[facility] Co de Phone Number [facility] [place] [address] * Surgical Pathology Report (03/03/2016 9:52 AM EST) Surgical Pathology Report [id number] ? [facility]; A The signing pathologist has (i) examined the relevant preparation(s) for the specimen(s) and (ii) rendered or confirmed the diagnosis(es). . 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 Electronically signed by: ??Erika Roldan MD Verified: ??03/08/2016 ?Pathologist ADDITIONAL STUDIES Immunohistochemistry [...] entire specimen and special studies, if any. [facility] 03/03/2016 9:52 AM EST Henry Chaves MD PATHOLOGY/CYTOLOGY O MARLINE Performing Organization Address [facility] [place] [address] * Surgical Pathology Report (03/03/2016 9:52 AM EST) Surgical Pathology Report [id number] ?Location: OR; OR01; A The signing pathologist [...] entire specimen and special studies, if any. [facility] 03/03/2016 9:52 AM EST Henry Chaves MD PATHOLOGY/CYTOLOGY O MARLINE Performing Organization Address [facility] [place] [address] * Specimen to Pathology (surgical or derm) (03/03/2016 9:51 AM EST) AP Specimen 03/03/2016 9:51 AM EST 03/03/2016 9:51 AM EST Narrative [facility] - 03/03/2016 9:51 AM EST Specimen requisition ordered. ??Separate Pathology report to follow Henry Chaves MD PATHOLOGY/CYTOLOGY Cameron HORAN [facility] [place] [address] * (ABNORMAL) BLOOD GAS 2 ARTERIAL (03/03/2016 8:44 AM EST) pH Art 7.44 7.35 - 7.45 [facility] pCO2 Art 36 35 - 45 mmHg [facility] pO2 Art 341(H) 85 - 104 mmHg [facility] HCO3 Art 24.0 20.0 - 26.0 mmol/L [facility] BE Art -0.1 -3.0 - 3.0 mmol/L [facility] Hgb Blood Gas 12.9 11.7 - 15.5 gm/dL [facility] O2HB Art 98.6(H) 94.0 - 97.0 % [facility] COHB Art 0.9 % [facility] Comment: Nonsmokers: 0.5-1.5% COHB Smokers: Variable, but usually less than 10% Toxic: 20-30% COHB Lethal: Greater than 60% COHB METHB Art 0.3 <=1.5 % [facility] Na Whole Blood 141 135 - 145 mmol/L [facility] K Whole Blood 3.3(L) 3.5 - 5.0 mmol/L [facility] Comment: Please note: Patients with WBC >100,000 may have falsely elevated Potassium levels. Contact the Clinical Chemistry Laboratory if there are any questions. ICa Whole Blood 1.19 1.15 - 1.33 mmol/L [facility] Comment: Note: ??Total bilirubin higher than 20 mg/dL may lead to falsely low ionized calcium. CL Whole Blood 105 98 - 107 mmol/L [facility] Gluc Whole Bld 134 65 - 199 mg/dL [facility] Comment:Diabetes: >=200 mg/d L plus symptoms. Lactate WB 2.4(H) 0.5 - 2.2 mmol/L [facility] Blood specimen (specimen) 03/03/2016 8:44 AM EST 03/03/2016 8:44 AM EST Henry Chaves MD CHEMISTRY ORDERABLES [facility] [place] [address] documented in this encounter Visit Diagnoses Not on filedocumented in this encounter Admitting Diagnoses Diagnosis Acoustic [...] Given 03/04/2016 9:08 AM EST 10 mg bacitracin injection ONCE PRN, Starting on Mon03/03/16 at 0940, Until [place] 03/06/16 at 1734, Intra-Operative (Intra-Procedure), Routine Given 03/03/2016 9:40 AM EST 10,000 Units BUpivacaine-EPINEPHrine 0.25 %-1:200,000 injection ONCE PRN, Starting on Mon03/03/16 at 0942, Until 03/06/16 at 1734, Intra-Operative (Intra-Procedure), Routine Given 03/03/2016 9:42 AM EST 8 mLs dexamethasone (DECADRON) tablet 4 mg 4 mg, Oral, EVERY 6 HOURS, First dose on Mon03/03/16 at 1600, Until Discontinued, Routine Given 03/06/2016 [...] Given 03/05/2016 8:30 AM EST 20 mg FLUoxetine (PROzac) capsule 20 mg 20 mg, Oral, DAILY, First dose on Mon03/04/16 at 0900, Until Discontinued, Routine Given 03/06/2016 8:15 AM EST 20 mg Given 03/05/2016 8:31 AM EST 20 mg Given 03/04/2016 9:08 AM EST 20 mg gelatin adsorbable (GELFOAM) poweder ONCE PRN, Starting on Diana 03/03/16 at 0941, Until 03/06/16 at 1734, Intra-Operative (Intra-Procedure), Routine Given 03/03/2016 9:41 AM EST 1 g gelatin adsorbable 100 (GELFOAM) sponge ONCE PRN, Starting on Diana 03/03/16 at 0941, Until 03/06/16 at 1734, Intra-Operative (Intra-Procedure), Routine Given 03/03/2016 9:41 AM EST 1 each gelatin compressed (GELFOAM) sponge ONCE PRN, Starting on Diana 03/03/16 at 0941, Until 03/06/16 at 1734, Intra-Operative (Intra-Procedure) Given 03/03/2016 9:41 AM EST 100 cm hydrALAZINE (APRESOLINE) injection 10 mg 10 mg, [...] Starting on Diana 12 at 1518, Until 03/06/16 at 1734, High [...] 17 g, Oral, DAILY PRN, Starting on Diana 03/03/16 at [...] [place] 03/03/16 at 0800, Until Discontinued, Routine Patch Applied 03/06/2016 8:17 AM EST 1 patch 01- Ear Behind (Left) scopolamine (TRANSDERM-SCOP) 1.5 mg patch Patch Removal Transdermal, EVERY 72 HOURS, First dose on 03/06/16 at 0745, Until Discontinued, Remove scopolamine 1.5 mg patch scopolamine (TRANSDERM-SCOP) 1.5 mg patch Patch Verification Transdermal, 2 TIMES DAILY, First dose on [facility] 03/03/16 at 1945, Until Discontinued, Verify scopolamine 1.5 mg patch. thrombin (Bovine) (THROMBINAR) kit ONCE PRN, Starting on Diana 03/03/16 at 0941, Until 03/06/16 at 1734, Intra-Operative (Intra-Procedure) Given 03/03/2016 9:41 AM EST 20,000 Units documented in this encounter Active and Recently [...] on Mon03/03/16 at 2100, Last dose on Mon03/04/16 at 1300, Administer over 30 Minutes, Recovery (Recovery-Hospital Unit), Indication for (Active or Suspected): Prophylaxis 0434 (Given - Provider: Kayleigh Rojas RN)1300 (Given - Provider: Jose Alfredo Waller RN) dexamethasone (DECADRON) tablet 4 mg(Linked Group 2) 4 mg, Oral, EVERY 6 HOURS, First dose on Mon03/03/16 at 1600, Until Discontinued, Routine 0430 (Given - Provider: Kayleigh Rojas RN)0908 (Given - Provider: Jose Alfredo Waller RN)1600 (Given - Provider: Jose Alfredo Waller RN)2116 (Given - Provider: Dona Vora RN) 0426 (Given - Provider: Dona Vora RN)0937 (Given - Provider: Michaelle Guzmán RN)1633 (Given - Provider: Michaelle Guzmán RN)2104 (Given - Provider: Dona Vora RN) 0441 (Given - Provider: Dona Vora RN)0903 (Given - Provider: Lissett Montilla RN)1530 (Given - Provider: Lissett Montilla RN) famotidine (PEPCID) tablet 20 mg(Linked Group 3) 20 mg, Oral, EVERY 12 HOURS, First dose on Mon03/03/16 at 2100, Until Discontinued, Routine 0907 (Given [...] Waller RN) 0831 (Given - Provider: Michaelle Guzmná RN) 0815 (Given - Provider: Lissett Montilla [...] 03/03/16 at 1518, Until 03/06/16 at 1734, Wheezing, Routine bisacodyl (DULCOLAX) EC [...] BTP, Routine 0100 (Given - Provider: Kayleigh Rojas RN)0524 (Given - Provider: Kayleigh Rojas RN)0809 (Given - Provider: Jose Alfredo Waller RN) hydrALAZINE (APRESOLINE) injection 10 mg 10 mg, Intravenous, EVERY 2 HOURS PRN, Starting on Diana 1216 at 1518, Until Sun 1216 at 1734, High Blood Pressure, SBP > 140, For SBP greater than 140 mmHg. May repeat once in 15 minutes if blood pressure remains greater than 140 mmHg.Use if labetolo ineffective after 2 doses., Routine labetalol (NORMODYNE,TRANDATE) injection 20 mg 20 mg, Intravenous, EVERY 2 HOURS PRN, Starting on Diana 1216 at [...] on Diana 1216 at 1518, Until Sun 1216 at 1734, Nausea, Vomiting, If multiple antiemetics are ordered, use ondansetron first, prochlorperazine second, and metoclopramide third. ondansetron (ZOFRAN) injection 4 mg(Linked Group 5) 4 mg, Intravenous, EVERY 8 HOURS PRN, Starting on Diana 1216 at 1518, Until Sun 1216 at 1734, Nausea, Vomiting, May repeat times one in 30 minutes if ineffective. If multiple antiemetics are ordered, use ondansetron first, prochlorperazine second, and metoclopramide third. ondansetron (ZOFRAN-ODT) oral disintegrating tablet 4 mg(Linked Group 5) 4 mg, Oral, EVERY 8 HOURS PRN, Starting on Diana 1216 at 1518, Until Sun 1216 at 1734, Nausea, May repeat in 30 minutes if ineffective. If multiple antiemetics are ordered, use ondansetron first, prochlorperazine second, and metaclopramide third., Routine oxyCODONE (ROXICODONE) immediate release tablet 10 mg(Linked Group 6) 10 mg, Oral, EVERY 4 HOURS PRN, Starting on Diana 12 at 2303, Until Sun 12 at 1734, Pain, moderate pain (4-6), May give additional 5 mg in 30 minutes once if pain not relieved., Routine 226 (See Alternative - Provider: Kayleigh Rojas RN)626 (See Alternative - Provider: Kayleigh Rojas RN)1113 (See Alternative - Provider: Jose Alfredo Waller RN)152 (See Alternative - Provider: Jose Alfredo Waller RN)195 (See Alternative - Provider: Dona Vora RN)2359 (See Alternative - Provider: Dona Vora RN) 0426 (See Alternative - Provider: Dona Vora RN)0830 (Given - Provider: Michaelle Guzmán RN)1217 (Given - Provider: Michaelle Guzmán RN)1629 (Given - Provider: Michaelle Guzmán RN)2044 (See Alternative - Provider: Dona Vora RN) 0042 (See Alternative - Provider: Dona Vora RN)0441 (Given - Provider: Dona Vora RN)0903 (Given - Provider: Lissett Montilla, EBONIE)1306 (Given - Provider: Lissett Montilla RN) oxyCODONE (ROXICODONE) immediate release tablet 15 mg(Linked Group 6) 15 mg, Oral, EVERY 4 HOURS PRN, Starting on Diana 12 at 2303, Until Sun 12 at 1734, Pain, severe pain or opiate tolerant patient (7-10), Do not start patient with 15 mg dose. Do not give 15 mg if patient is opiate niave., Routine 226 (Given - Provider: Kayleigh Rojas RN)626 (Given - Provider: Kayleigh Rojas RN)111 (Given - Provider: Jose Alfredo Waller RN)152 (Given - Provider: Jose Alfredo Waller RN)195 (Given - Provider: Dona Vora RN)2359 (Given - Provider: Dona Vora RN) 0426 (Given - Provider: Dona Vora, EBONIE)0830 (See Alternative - Provider: Michaelle Guzmán, EBONIE)1217 (See Alternative - Provider: Michaelle Guzmán, EBONIE)1629 (See Alternative - Provider: Michaelle Guzmán, EBONIE)2044 (Given - Provider: Dona Vora RN) 0042 (Given - Provider: Dona Vora RN)0441 (See Alternative - Provider: Dona Vora RN)0903 (See Alternative - Provider: Lissett Montilla, EBONIE)1306 (See Alternative - Provider: Lissett Montilla, EBONIE) oxyCODONE (ROXICODONE) immediate release tablet 5 mg(Linked [...] (See Alternative - Provider: Jose Alfredo Waller RN)1522 (See Alternative - Provider: Jose Alfredo Waller RN)1957 (See Alternative - Provider: Dona Vora RN)2359 [...] Montilla, EBONIE)1306 (See Alternative - Provider: Lissett Montilla, EBONIE) polyethylene glycol (MIRALAX) packet 17 g 17 g, Oral, DAILY PRN, Starting on Diana 12/1/16 at 1518, Until Mon03/06/16 at 1734, Constipation, Administer if needed per patient's routine or if no bowel movement within 48 hours to achieve: 1) One bowel movement at least every 48 hours, AND 2) Without straining. If multiple bowel medications ordered, consider polyethylene glycol(MIRALAX) first., Routine 2043 (Given - Provider: Dona Vora, EBONIE) 1034 (Given - Provider: Lissett Montilla RN) [...] Intravenous, EVERY 6 HOURS, First dose on Mon03/03/16 at 1600, Until Discontinued, Routine Or dexamethasone [...] Intravenous, EVERY 8 HOURS PRN, Starting on Mon03/03/16 at 1518, Until 03/06/16 at 1734, Nausea, [...] EVERY 4 HOURS PRN, Starting on Diana 12/1/16 at 2303, Until 03/06/16 at 1734, Pain, severe pain or opiate tolerant patient (7-10), Do not start patient with 15 mg dose. Do not give 15 mg if patient is opiate niave., Routine documented in this encounter Care Teams Lead Sustainability Specialist Relationship Specialty Start Date End Date Elizabeth Armenta MD [facility] [address] [place] [address] PCP - General 08/22/14 01/12/21 documented as of this encounter
--- OUTSIDE RECORDS SUMMARY | 2023-10-16 15:20 | XMS_ITS | Encounter Summary ---
Author Organization [facility] [place] [address] Care Team Providers Care Facetor Name Role Phone Elizabeth Armenta MD Primary Care Provider [phone] Encounter Details Date Type Department Care Team (Latest Contact Info) Description 12/04/2015 8:45 AM EDT Office Visit Audiology at [address] [address] Seema Fabian AUD [facility] [place] [address] Asymmetrical sensorineural hearing loss Social History Tobacco Use Types Packs/Day Years [...] as of this encounter Progress Notes * Seema Fabian AUD - 12/04/2015 8:45 AM ED[place] [address] Latisha Felipe was seen on 12/04/2015 for an audiologic evaluation in conjunction with Dr. Aguilera in Otolaryngology. Please refer to the scanned audiogram listed under Procedures for findings, impressions and recommendations. It may take up to 24 hours for the audiogram to be scanned[place] [address] documented in this encounter Plan of Treatment Not on file documented as of this encounter Procedures Procedure Name Priority Date/Time Associated Diagnosis Comments COMPREHENSIVE HEARING TEST Routine 05/20/2016 1:57 PM EST COMPREHENSIVE HEARING TEST Routine 05/20/2016 1:57 PM EST COMPREHENSIVE HEARING TEST Routine 12/04/2015 8:27 AM EDT documented in this encounter Results * Comprehensive hearing test (05/20/2016 1:57 PM EST) 05/20/2016 1:57 PM EST Narrative AUDBASE COMP - 05/20/2016 1:57 PM EST 70 yo female seen in conjunction with Dr. Norman Aguilera; history includes right profound hearing loss x 17 years; right CPA tumor post resection. ??Today hearing appears within normal limits to mild sensorineural hearing loss 250-6kHz save for moderate-severe loss at 8kHz with good word recognition for the left ear, and with profound sensorineural hearing loss for the right ear with poor word recognition. Both ears appear somewhat poorer than the last audiogram on file from Dec 2015. Monitor hearing and amplification needs as needed per Dr. Aguilera. ?? Procedure Note Unknown - 05/20/2016 70 yo female seen in conjunction with Dr. Norman Aguilera; history includesright profound hearing loss x 17 years; right CPA tumor post resection. Today hearingappears within normal limits to mild sensorineural hearing loss 250-6kHz save formoderate-severe loss at 8kHz with good word recognition for the left ear, and with profound sensorineuralhearing loss for the right ear with poor word recognition. Both ears appear somewhat poorerthan the last audiogram on file from Dec 2015. Monitor hearing and amplification needs as neededper Dr. Aguilera. Unknown AUDIOLOGY SERVICES O [facility] Performing Organization Address [facility] de Phone Number Future FleetBASE COMP * Comprehensive hearing test (05/20/2016 1:57 PM EST) 05/20/2016 1:57 PM EST Narrative VAISHALIBASE COMP - 05/20/2016 1:57 PM EST 70 yo female seen in conjunction with Dr. Norman Aguilera; history includes right profound hearing loss x 17 years; right CPA tumor post resection. ??Today hearing appears within normal limits to mild sensorineural hearing loss 250-6kHz save for moderate-severe loss at 8kHz with good word recognition for the left ear, and with profound sensorineural hearing loss for the right ear with poor word recognition. Both ears appear somewhat poorer than the last audiogram on file from Dec 2015. Monitor hearing and amplification needs as needed per Dr. Aguilera. ?? Procedure Note Unknown - 05/20/2016 70 yo female seen in conjunction with Dr. Norman Aguilera; history includesright profound hearing loss x 17 years; right CPA tumor post resection. Today hearingappears within normal limits to mild sensorineural hearing loss 250-6kHz save formoderate-severe loss at 8kHz with good word recognition for the left ear, and with profound sensorineuralhearing loss for the right ear with poor word recognition. Both ears appear somewhat poorerthan the last audiogram on file from Dec 2015. Monitor hearing and amplification needs as neededper Dr. Aguilera. Unknown AUDIOLOGY SERVICES O [facility] Performing Organization Address [facility] Co de Phone Number AUDBASE COMP * Comprehensive hearing test (12/04/2015 8:27 AM EDT) 12/04/2015 8:27 AM EDT Narrative Future FleetBASE COMP - 12/04/2015 8:27 AM EDT Patient seen in conjunction with Dr. Aguilera in OR due to a right CPA tumor. Patient reported no usable hearing in the right ear for the past 17 years following a sudden hearing loss. Otologic concerns of tinnitus, otalgia, aural fullness and dizziness were denied. Results: Left Ear: WNL 250-2,000 Hz and at 6,000 Hz with a mild 3,000-4,000 Hz and moderately-severe at 8,000 Hz SNHL ?Right Ear: Severe to profound SNHL 250-8,000 Hz Note: Good reliability with some false positives Rec: Follow up with Dr. Aguilera Procedure Note Unknown - 12/04/2015 Patient seen in conjunction with Dr. Aguilera in ORL due to a right CPAtumor. Patient reported no usable hearing in the right ear for the past 17 years following asudden hearing loss. Otologic concerns of tinnitus, otalgia, aural fullness and dizziness weredenied. Results: Left Ear: WNL 250-2,000 Hz and at 6,000 Hz with a mild3,000-4,000 Hz and moderately-severe at 8,000 Hz SNHL Right Ear: Severe to profound SNHL 250-8,000 Hz Note: Good reliability with some false positives Rec: Follow up with Dr. Aguilera Unknown AUDIOLOGY SERVICES O RDERABLES AUDBASE COMP documented in this encounter Visit Diagnoses Diagnosis Asymmetrical sensorineural hearing loss Sensorineural hearing loss, asymmetrical documented in this encounter Care Teams Facetor Relationship Specialty Start Date End Date Elizabeth Armenta MD [facility] [address] [place] [address] PCP - General 08/22/14 01/12/21 documented as of this encounter
--- OUTSIDE RECORDS SUMMARY | 2023-10-16 15:20 | XMS_ITS | Encounter Summary ---
Author Organization [facility] [place] [address] Care Team Providers Care Distribution Engineer Name Role Phone Elizabeth Armenta MD Primary Care Provider [phone] Reason for Visit * Auth/Cert Specialty Diagnoses / Procedures Referred By Nancy t Referred To Contact Diagnoses Pancreatic Cyst Procedures PRO ENDOSCOPIC US EXAM, ESOPH UPPER EUS- ENDOSCOPIC ULTRASOUND Referral ID Status Reason Start Date Expiration Date Visits Re quested Visits Authorized [id number] 1 1 Encounter Details Date Type Department Care Team (Late st Contact Info) Description 02/09/2016 4:15 PM EST Anesthesia [place] [address] Hien Jones MD [facility] [place] [address] Jeanmarie Slaughter MD [facility] [place] [address] Anesthesia Record Procedure Summary Procedure Name Responsible Anesthesiologist Anesthesia Start Time Anesthesia Stop Time UPPER EUS- ENDOSCOPIC ULTRASOUND (WRVU 3.47) (Trunk) Hien Jones MD 02/09/16 1615 02/09/16 1648 Events Date Time Event Comment 02/09/2016 1546 1615 Start 1627 AN Verify 1627 An Start Data 1647 an stop data 1648 Recovery or ICU Handoff Tasai ent care was transferred to the destination unit staff after review of the patient's medical history, current anesthetic/surgical status and plan, according to the Provider Handoff Checklist. 1648 Stop Meds Name Total Midazolam 2 mg Propofol 140 mg Propofol INF 251.16 mg lactated ringers infusion 900 mL * Agents Name O2 Air N2O * Blood No blood administrations on file. Lines, Drains, and Airways Type Details Placement Removal (RETIRED) Peripheral IV Line - Single Lumen 02/09/16; 1527; xbav-sra-qehtwe catheter system; 22 gauge; Marsha Camilo; distraction, intradermal injection; 02/09/16; 1758 02/09/16 1527 by Gaye Sewell RN 02/09/16 175 by Dayna Chavis RN documented in this encounter Social History Tobacco Use Types Packs/Day Years [...] on file documented as of this encounter OR Notes * Anesthesia Postprocedure Evaluation - Hien Jones MD - 02/09/2016 4:57 PM EST [facility] Department of Anesthesiology Post-procedure Note Patient: Latisha Felipe Procedure Summary Date Anesthesia Start Anesthesia Stop Room / Location 02/09/16 1615 1648 [facility] ENDO 3 / [facility] ENDOSCOPY Procedure Diagnosis Surgeon Responsible Provider UPPER EUS- ENDOSCOPIC ULTRASOUND (N/A Trunk) (Pancreatic Cyst) Rigoberto Angel MD Herrick, Michael D, MD All Anesthesia Providers: Anesthesiologist: Hien Jones MD PEANUT VENDOR: Erin Hazel CRNA Last (1hr) Vitals: BP 112/66 (02/09/161651) Temp Pulse 85 (02/09/161651) Resp 20 (02/09/161651) SpO2 97 % (02/09/161651) Patient Location: PACU/[facility] Level of Consciousness: Conscious but Sleepy Pain Management: Satisfactory Analgesia PONV: None Cardiovascular Status: Hemodynamically Stable Respiratory Status: Stable Respiratory Status Postoperative Fluid Status: Intravascular EUvolemia Possible Anesthetic Complications: NONE apparent at time of evaluation Final Primary Anesthesia Type: MAC (The anesthetic type performed was the same as planned.) Comments: Doing great in recovery HIEN JONES MD * Anesthesia Preprocedure Evaluation - Jeanmarie Slaughter MD - 02/09/2016 3:08 PM EST Pre-Anesthesia Evaluation for: Latisha Felipe a 70 y.o. female. Procedure(s): UPPER EUS- ENDOSCOPIC ULTRASOUND Patient Active Problem List Diagnosis ??? Acoustic neuroma ??? CPA (cerebellopontine angle) tumor No past medical history on file. No past surgical history on file. Social History Substance Use Topics ??? Smoking status: Former Smoker Packs/day: 0.50 Years: 15.00 Types: Cigarettes ??? Smokeless tobacco: Never Used Comment: quit ??? Alcohol use Yes Comment: wine nightly History Drug Use No Allergies Allergen Reactions ??? Sulfa (Sulfonamide Antibiotics) Rash HIGH FEVER Medications: MAR and/or home medications have been reviewed. Physical Exam: There were no vitals filed for this visit. There is no height or weight on file to calculate BMI. 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 NPO. MAC, GA backup. Questions sought and answered. Consent obtained. Region - Other Informed Consent: Anesthetic plan and risks discussed with patient. Use of blood products discussed with patient who. Plan discussed with PEANUT VENDOR. PAT Staff Note documented in this encounter Plan of Treatment Not on file documented as of this encounter Visit Diagnoses Not on filedocumented in this encounter Administered Medications Inactive Administered Medications - up to 3 most recent administrations Medication Order MAR Action Action Date Dose Rate Site midazolam (PF) (VERSED) 1 mg/mL multi-dose injection PRN, Starting on Mon02/09/16 at 1615, Until Mon02/09/16 at 1648, Sleep, Anesthesia Intra-op, Routine Given 02/09/2016 4:15 PM EST 2 mg propofol (DIPRIVAN) 10 mg/mL bolus injection (Anesthesia) PRN, Starting on Mon02/09/16 at 1633, Until e 02/09/16 at 1648, Anesthesia Intra-op Given 02/09/2016 4:33 PM EST 30 mg Given 02/09/2016 4:30 PM EST 30 mg Given 02/09/2016 4:27 PM EST 40 mg propofol (DIPRIVAN) infusion CONTINUOUS PRN, Starting on e 02/09/16 at 1621, Until Mon02/09/16 at 1648, Anesthesia Intra-op, Routine Rate/Dose Change 02/09/2016 4:27 PM EST 200 mcg/kg/min 77.3 mL/hr New Bag 02/09/2016 4:21 PM EST 150 mcg/kg/min 58 mL/hr documented in this encounter Care Teams Distribution Engineer Relationship Specialty Start Date End Date Elizabeth Armenta MD [facility] [address] [place] [address] PCP - General 08/22/14 01/12/21 documented as of this encounter
--- OUTSIDE RECORDS SUMMARY | 2023-10-16 15:20 | XMS_ITS | Encounter Summary ---
Author Organization [facility] [place] [address] Care Team Providers Care Pellet Mill Operator Name Role Phone Elizabeth Armenta MD Primary Care Provider [phone] Reason for Visit * Auth/Cert Specialty Diagnoses / Procedures Referred By Nancy mendez Referred To Contact Diagnoses Pancreatic Cyst Procedures PRO ENDOSCOPIC US EXAM, ESOPH UPPER EUS- ENDOSCOPIC ULTRASOUND Referral ID Status Reason Start Date Expiration Date Visits Re quested Visits Authorized [id number] 1 1 Encounter Details Date Type Department Care Team (Latest Contact Info) Description 02/09/2016 2:02 PM EST - 02/09/2016 5:58 PM EST Hospital Encounter [place] [address] Farhan Scales MD [facility] [place] [address] Discharge Disposition: Home Social History Tobacco Use [...] Sign Reading Time Taken Comments Blood Pressure 122/64 02/09/2016 5:00 PM EST Pulse 85 02/09/2016 4:52 PM EST Temperature - - Respiratory Rate 20 02/09/2016 4:52 PM EST Oxygen Saturation 96% 02/09/2016 5:00 PM EST Inhaled Oxygen Concentration - - [...] Angel MD - 02/09/2016 5:14 PM EST [facility] Operative Note Patient Name: Latisha Felipe : [id number] MR#: [id number] Case Date: 02/09/2016 Surgeon: Surgeon(s) and Role: * Rigoberto Angel MD - Primary * Quang Kat MD - Fellow Preoperative diagnosis: Pancreatic Cyst Postoperative diagnosis: * No post-op diagnosis entered * Procedure(s): UPPER EUS- ENDOSCOPIC ULTRASOUND Anesthesia: MAC Full procedure note is documented under the Procedure section of eD. documented in this encounter Plan of Treatment Not on file documented as of this encounter Procedures Procedure Name Priority Date/Time Associated Diagnosis Comments UPPER EUS- ENDOSCOPIC ULTRASOUND (WRVU 3.47) 02/09/2016 4:17 PM EST Pancreatic Cyst UPPER EUS-ENDOSCOPIC ULTRASOUND Routine 02/09/2016 3:45 PM EST documented in this encounter Results * UPPER EUS-ENDOSCOPIC ULTRASOUND (02/09/2016 3:45 PM EST) UPPER ENDOSCOPIC ULTRASOUND [facility] Endoscopy ___ Procedure Date: 02/09/2016 3:45 PM ? Patient Name: Latisha Felipe ? N: [id number] ? Date of : 1945 ? Age: 70 ? Order #: [id number] ? Instrument Name: [facility] [id number] ? ___ Procedure: ? Upper EUS Indications: ? Abnormal ultrasound of the abdomen, ? cyst in pancreas Providers: ? Rigoberto Angel MD, Quang Stearns ? MD North, Manju Hall RN, Raquel ? Wing Mathews, Mortgage Loan Officer Originator Referring MD: ?Elizabeth Armenta MD Medicines: ? [...] CRNA) documented in this encounter Care Teams Pellet Mill Operator Relationship Specialty Start Date End Date Elizabeth Armenta MD [facility] [address] [place] [address] PCP - General 08/22/14 01/12/21 documented as of this encounter
--- OUTSIDE RECORDS SUMMARY | 2023-10-16 15:20 | XMS_ITS | Encounter Summary ---
Author Organization [facility] [place] [address] Care Team Providers Care Concrete Boom Operator Name Role Phone Elizabeth Armenta MD Primary Care Provider [phone] Reason for Visit * Auth/Cert Specialty Diagnoses / Procedures Referred By Nancy t Referred To Contact Diagnoses Acoustic neuroma TUMOR N/A Procedures PRO TISSUE GRAFTS, OTHER (E.G. AUTOLOGOUS FAT GRAFT) PRO EXCIS INFRATENT CP ANGLE TUMOR PRO MICROSURG TECHNIQUES, REQ OPER MICROSCOPE TISSUE GRAFT, PARATENON, FAT, DERMIS (OTHER) @CRANIECTOMY, EXC. CEREBELLOPONTINE ANGLE TUMOR MICROSCOPE USE Referral ID Status Reason Start Date Expiration Date Visits Re quested Visits Authorized [id number] 1 1 Encounter Details Date Type Department Care Team (Late st Contact Info) Description 03/03/2016 7:44 AM EST Anesthesia Event [place] [address] Carly Nolan MD [facility] [place] [address] Anesthesia Record Procedure Summary Procedure Name Responsible Anesthesiologist Anesthesia Start Time Anesthesia Stop Time TISSUE GRAFT, PARATENON, FAT, DERMIS (OTHER) (WRVU 5.79) Carly Nolan MD 03/03/16 0744 03/03/16 1458 Events Date Time Event Comment 03/03/2016 0723 0744 Start 0748 AN Verify 0748 An Start Data 0759 An Induction 0802 An Intubation 0830 Anesthesia Ready 0844 ABG Data Arterial Blood Gas result: pH 7.441 pCO2 36.1 pO2 341.4 FiO2 0.62 %O2 Sat 100 HCO3 24 BE -0.1 Hb 12.9 Glucose 134 K 3.32 Ca++ 1.19 Lac 2.39 0847 Procedure Start 09 Break/Relief In Erin andres, UNIT CONTROLLER 0941 Break/Relief Out 1203 ABG Data Arterial Blood Gas result: pH 7.458 pCO2 34 pO2 179.7 FiO2 0.44 %O2 Sat 100 HCO3 23.5 BE -0.3 Hb 13.2 Glucose 147 K 3.52 Ca++ 1.17 Lac 1.98 1253 Break/Relief In KEELY BLACK RONNIE, UNIT CONTROLLER 1322 Break/Relief Out 1431 Extubation/LMA Out Spontaneo usly ventilating, tidal volumes and respiratory rate adequate. Oropharynx suctioned, extubated to face mask in OR without issue. 1436 an stop data 1457 Recovery or ICU Handoff Tasia ent care was transferred to the destination unit staff after review of the patient's medical history, current anesthetic/surgical status and plan, according to the Provider Handoff Checklist. 1458 Stop Transferred to ICU monitored on EKG, SpO2, ABP. O2 via facemask. Upon arrival to ICU placed on bedside monitor. All vital signs stable. Report to RN Meds Name Total Propofol 300 mg Propofol INF 2,970.47 mg ePHEDrine 20 mg Dexamethasone 8 mg Ondansetron 8 mg REMIfentanil INF 6.01 mg ceFAZolin 6 g PHENYLephrine INF 7,660 mcg Succinylcholine 100 mg HYDROmorphone 0.8 mg Labetalol 30 mg lactated ringers infusion 1,000 mL 1,000 mL Lactated Ringers 1,000 mL * Agents Name O2 Air N2O * Blood No blood administrations on file. Lines, Drains, and Airways Type Details Placement Removal Urethral Catheter 03/03/16; Surgery lo nger than 2 hours; Physician order; indwelling catheter with core temperature probe; latex; 14; inserted at this facility; 1; 5; 10; none; drainage bag to dependent drainage; urethral catheter removed; Removed in OR per MD; 03/03/16; 1445 03/03/16 0000 by Tucker Montes RN 03/03/16 1445 by Mary Lynn RN Incision 03/03/16; head; 11/02 12/23 (LDA cleanup utility RA#[id number]); 1715 (LDA cleanup utility RA#[id number]) 03/03/16 0000 by Tucker Montes RN 11/29/21 1715 by Julio Leslie (RETIRED) Peripheral IV Line - Single Lumen 03/03/16; 0635; cephalic vein (lateral side of arm), left; [id number] catheter system; 18 gauge; Wilma Burt RN; distraction, intradermal injection, tolerated well, appears comfortable; 03/06/16; 14103/03/16 0635 by Jud Burt RN 03/06/16 1412 by Amaya Mesa LNA (RETIRED) Peripheral IV Line - Single Lumen 03/03/16; 0744; cephalic vein (lateral side of arm), right; kcbz-dxq-anfluz catheter system; 16 gauge; Beth Corado; 03/06/16; 14103/03/16 0744 by Teresa Corado CRNA 03/06/16 1412 by Amaya Mesa LNA ETT Mask Ventilation: Ea sy (1); ETT Type: Cuffed, Oral; ETT Size: 7 mm; Mac Blade: 3; Notes: Asleep, Pre-O2; Attempts: 1; Laryngoscopy Grade: 1; ETT Placement Verified By: Auscultation, Capnometry, Visual; Secured at Teeth: 20 cm; Inserted by: Beth Corado; Removal Date: 03/03/16; Removal Time: 1431 03/03/16 0802 by Teresa Corado CRNA 03/03/16 1431 by Teresa Corado CRNA Arterial Line 03/03/16; 0816; radi al artery, left; 20 gauge; Kathrin Nolan; Sterile Prep, Sterile Gloves; 03/04/16; 1400 03/03/16 0816 by Teresa Corado CRNA 03/04/16 1400 by Jose Alfredo Waller RN documented in this encounter Social History [...] OR Notes * Anesthesia Postprocedure Evaluation - Carly Nolan MD - 03/03/2016 4:11 PM EST [facility] Department of Anesthesiology Post-procedure Note Patient: Latisha Felipe Procedure Summary Date Anesthesia Start Anesthesia Stop Room / Location 03/03/16 0744 1458 [facility] Procedure Diagnosis Surgeon Responsible Provider TISSUE GRAFT, PARATENON, FAT, DERMIS (OTHER) (N/A ); @CRANIECTOMY, EXC. CEREBELLOPONTINE ANGLE TUMOR (Right Head); MICROSCOPE USE (N/A ); @CRANIECTOMY,TRANSTEMPORAL- ACOUSTIC NEUROMA (Head) (TUMOR) Iván Chaves MD; Norman Aguilera MD Procopio, Marcia A, MD All Anesthesia Providers: Anesthesiologist: Carly Nolan MD UNIT CONTROLLER: Teresa Corado CRNA Last (1hr) Vitals: BP Temp 37 ??C (98.6 ??F) (03/03/16 1600) Pulse 70 (03/03/16 1600) Resp 18 (03/03/16 1600) SpO2 96 % (03/03/16 1600) Patient Location: PACU/[facility] Level of Consciousness: Conscious but Sleepy Pain Management: Satisfactory Analgesia PONV: None Cardiovascular Status: At Baseline and Hemodynamically Stable Respiratory Status: At Baseline and Supplemental O2 (NC or FM) Postoperative Fluid Status: Intravascular EUvolemia Possible Anesthetic Complications: NONE apparent at time of evaluation Final Primary Anesthesia Type: General (The anesthetic type performed was the same as planned.) Comments: CARLY NOLAN MD * Anesthesia Preprocedure Evaluation - Carly Nolan MD - 03/03/2016 7:23 AM EST Pre-Anesthesia Evaluation for: Latisha Felipe a 70 y.o. female. Procedure(s): TISSUE GRAFT, PARATENON, FAT, DERMIS (OTHER) @CRANIECTOMY, EXC. CEREBELLOPONTINE ANGLE TUMOR MICROSCOPE USE @CRANIECTOMY,TRANSTEMPORAL- ACOUSTIC NEUROMA Patient Active Problem List Diagnosis ??? Acoustic neuroma ??? CPA (cerebellopontine angle) tumor No past medical history on file. Past Surgical History Procedure Laterality Date ??? Pro endoscopic us exam, bowenrosas N/A 02/09/2016 UPPER EUS- ENDOSCOPIC ULTRASOUND performed by Rigoberto Angel MD at [facility] ENDOSCOPY Social History Substance Use Topics ??? Smoking status: Former Smoker Packs/day: 0.50 Years: 15.00 Types: Cigarettes ??? Smokeless tobacco: Never Used Comment: quit ??? Alcohol use Yes Comment: wine nightly History Drug Use No Allergies Allergen Reactions ??? Sulfa (Sulfonamide Antibiotics) Rash HIGH FEVER Medications: MAR and/or home medications have been reviewed. Physical Exam: Vitals: 03/03/16 0620 BP: 154/77 Pulse: 87 Resp: 18 Temp: 36.6 ??C (97.9 ??F) Body mass index is 24.55 kg/(m^2). Height: 162.6 cm (5' 4) Weight - Scale: 64.9 kg (143 lb) Airway Assessment: Mallampati: I TM distance: >3 FB Neck ROM: full Cardiovascular Assessment: Pulmonary Assessment: Dental Assessment: - normal exam Misc Assessment: Patient is wearing No contact(s). IV access: Peripheral line Anesthesia Plan: ASA 3 general, with a(n) intravenous induction 70 year old with treated HTN presents for excision of acoustic neuroma right side. NPO verified with patient. Allergy to sulfa. Mild well controlled asthma with last inhaler use 9 months ago. Region - Other Informed Consent: Anesthetic plan and risks discussed with patient. Plan discussed with UNIT CONTROLLER. PAT Staff Note documented in this encounter Plan of Treatment Not on file documented as of this encounter Visit Diagnoses Not on filedocumented in this encounter Administered Medications Inactive Administered Medications - up to 3 most recent administrations Medication Order MAR Action Action Date Dose Rate Site ceFAZolin (ANCEF) 1g in dextrose 5% 50mL PRN, Starting on Diana 03/03/16 at 0830, Until Diana 03/03/16 at 1500, Administer over 30 Minutes, Anesthesia Intra-op Given 03/03/2016 2:30 PM EST 2 g Given 03/03/2016 11:30 AM EST 2 g Given 03/03/2016 8:30 AM EST 2 g dexamethasone (DECADRON) injection PRN, Starting on Diana 03/03/16 at 0900, Until Diana 03/03/16 at 1500, Anesthesia Intra-op, Routine Given 03/03/2016 9:00 AM EST 8 mg ePHEDrine 5 mg/mL multi-dose injection PRN, Starting on Diana 03/03/16 at 0818, Until Diana 03/03/16 at 1500, Anesthesia Intra-op, Routine Given 03/03/2016 8:18 AM EST 10 mg Given 03/03/2016 8:12 AM EST 10 mg HYDROmorphone (DILAUDID) injection PRN, Starting on Diana 03/03/16 at 1359, Until Diana 03/03/16 at 1500, Pain, Anesthesia Intra-op, Routine Given 03/03/2016 2:54 PM EST 0.4 mg Given 03/03/2016 1:59 PM EST 0.4 mg labetalol (NORMODYNE,TRANDATE) multi-dose injection PRN, Starting on Diana 03/03/16 at 1435, Until Diana 03/03/16 at 1500, High Blood Pressure, Anesthesia Intra-op, Routine Given 03/03/2016 2:53 PM EST 10 mg Given 03/03/2016 2:45 PM EST 10 mg Given 03/03/2016 2:37 PM EST 5 mg lactated ringers infusion 1,000 mL 1,000 mL, at 100 mL/hr, Intravenous, CONTINUOUS, Starting on Diana 03/03/16 at 0645, Until Diana 03/03/16 at 1518, Day of Surgery (Day of Procedure) New Bag 03/03/2016 7:44 AM EST lactated ringers infusion CONTINUOUS PRN, Starting on Diana 03/03/16 at 0805, Until Diana 03/03/16 at 1500, Anesthesia Intra-op New Bag 03/03/2016 8:05 AM EST ondansetron (ZOFRAN) injection PRN, Starting on Diana 03/03/16 at 1403, Until Diana 03/03/16 at 1500, Nausea, Anesthesia Intra-op, Routine Given 03/03/2016 2:03 PM EST 8 mg PHENYLephrine (VALERIE-SYNEPHRINE) 20 mg in sodium chloride 250 mL (standard ADULT & Sunil greater than 20kg) infusion CONTINUOUS PRN, Starting on Diana 12 at 0829, Until Diana 03/03/16 at 1500, Anesthesia Intra-op, Routine Rate/Dose Change 03/03/2016 2:15 PM EST 20 mcg/min 15 mL/hr Restarted 03/03/2016 2:08 PM EST 10 mcg/min 7.5 mL/hr Rate/Dose Change 03/03/2016 1:49 PM EST 20 mcg/min 15 mL/h r propofol (DIPRIVAN) 10 mg/mL bolus injection (Anesthesia) PRN, Starting on Diana 03/03/16 at 0759, Until Diana 03/03/16 at 1500, Anesthesia Intra-op Given 03/03/2016 8:05 AM EST 100 mg Given 03/03/2016 8:02 AM EST 50 mg Given 03/03/2016 7:59 AM EST 150 mg propofol (DIPRIVAN) infusion CONTINUOUS PRN, Starting on Diana 03/03/16 at 0803, Until Diana 03/03/16 at 1500, Anesthesia Intra-op, Routine Restarted 03/03/2016 2:15 PM EST 20 mcg/kg/min 7.8 mL/hr Rate/Dose Change 03/03/2016 2:01 PM EST 20 mcg/kg/min 7.8 mL/hr Rate/Dose Change 03/03/2016 1:54 PM EST 80 mcg/kg/min 31.2 mL/hr remifentanil (ULTIVA) 0.02 mg/mL IV infusion (ANESTHESIA) CONTINUOUS PRN, Starting on Diana 03/03/16 at 0803, Until Diana 03/03/16 at 1500, Anesthesia Intra-op Rate/Dose Change 03/03/2016 2:02 PM EST 0.2 mcg/kg/min 38.9 mL/hr Rate/Dose Change 03/03/2016 10:19 AM EST 0.25 mcg/kg/min 4 8.7 mL/hr Rate/Dose Change 03/03/2016 10:07 AM EST 0.2 mcg/kg/min 38 .9 mL/hr succinylcholine (ANECTINE) injection PRN, Starting on Diana 03/03/16 at 0800, Until Diana 03/03/16 at 1500, Anesthesia Intra-op, Routine Given 03/03/2016 8:00 AM EST 100 mg documented in this encounter Care Teams Concrete Boom Operator Relationship Specialty Start Date End Date Elizabeth Armenta MD [facility] [address] [place] [address] PCP - General 08/22/14 01/12/21 documented as of this encounter
--- OUTSIDE RECORDS SUMMARY | 2023-10-16 15:21 | XMS_ITS | Encounter Summary ---
Author Organization [facility] [place] [address] Care Team Providers Care Motion Picture Operator Name Role Phone Elizabeth Armenta MD Primary Care Provider [phone] Encounter Details Date Type Department Care Team ([facility] st Contact Info) Description 02/25/2014 10:00 AM EST Office Visit [address] [address] Norman Lockhart MD [address] [place] [address] HEMATOLOGY/[place] [address] Social History Tobacco Use Types Packs/Day Years Used Date Smoking Tobacco: Never Assessed Sex and Gender Information Value Date Recorded Sex Assigned at Not on file Gender Identity Not on file Sexual Orientation Not on file documented as of this encounter Plan of Treatment Not on file documented as of this encounter Visit Diagnoses Not on filedocumented in this encounter Care Teams Motion Picture Operator Relationship Specialty Start Date End Date Elizabeth Armenta MD [facility] [address] [place] [address] PCP - General 02/24/12 07/03/14 documented as of this encounter
--- OUTSIDE RECORDS SUMMARY | 2023-10-16 15:21 | XMS_ITS | Encounter Summary ---
Author Organization [facility] [place] [address] Care Team Providers Care Ratings Analyst Name Role Phone Elizabeth Armenta MD Primary Care Provider [phone] Encounter Details Date Type Department Care Team ([facility] st Contact Info) Description 09/10/2015 1:45 PM EDT Office Visit Neurology [address] [address] Danay Torres MD [address] [place] [address] Social History Tobacco Use Types Packs/Day Years Used Date Smoking Tobacco: Never Assessed Sex and Gender Information Value Date Recorded Sex Assigned at Not on file Gender Identity Not on file Sexual Orientation Not on file documented as of this encounter Plan of Treatment Not on file documented as of this encounter Visit Diagnoses Not on filedocumented in this encounter Care Teams Ratings Analyst Relationship Specialty Start Date End Date Elizabeth Armenta MD [facility] [address] [place] [address] PCP - General 08/22/14 01/12/21 documented as of this encounter
--- OUTSIDE RECORDS SUMMARY | 2023-10-16 15:21 | XMS_ITS | Encounter Summary ---
Author Organization [facility] [place] [address] Care Team Providers Care Explosive Ordnance Disposal Technician Name Role Phone Trav Mccann MD Primary Care Provider [phone] Encounter Details Date Type Department Care Team ([facility] st Contact Info) Description 08/30/2011 10:20 AM EDT Office Visit [address] [address] Norman Lockhart MD [address] [place] [address] HEMATOLOGY/[place] [address] Social History Tobacco Use Types Packs/Day Years Used Date Smoking Tobacco: Never Assessed Sex and Gender Information Value Date Recorded Sex Assigned at Not on file Gender Identity Not on file Sexual Orientation Not on file documented as of this encounter Plan of Treatment Not on file documented as of this encounter Visit Diagnoses Not on filedocumented in this encounter Care Teams Explosive Ordnance Disposal Technician Relationship Specialty Start Date End Date Trav Mccann MD [address] [place] [address] PCP - General 02/23/10 02/23/12 documented as of this encounter
--- OUTSIDE RECORDS SUMMARY | 2023-10-16 15:21 | XMS_ITS | Encounter Summary ---
Author Organization [facility] [place] [address] Care Team Providers Care Electric Stop Installer Name Role Phone Trav Mccann MD Primary Care Provider [phone] Encounter Details Date Type Department Care Team ([facility] st Contact Info) Description 03/01/2011 10:00 AM EST Office Visit [address] [address] Norman Lockhart MD [address] [place] [address] HEMATOLOGY/[place] [address] Social History Tobacco Use Types Packs/Day Years Used Date Smoking Tobacco: Never Assessed Sex and Gender Information Value Date Recorded Sex Assigned at Not on file Gender Identity Not on file Sexual Orientation Not on file documented as of this encounter Plan of Treatment Not on file documented as of this encounter Visit Diagnoses Not on filedocumented in this encounter Care Teams Electric Stop Installer Relationship Specialty Start Date End Date Trav Mccann MD [address] [place] [address] PCP - General 02/23/10 02/23/12 documented as of this encounter
--- OUTSIDE RECORDS SUMMARY | 2023-10-16 15:21 | XMS_ITS | Encounter Summary ---
Author Organization [facility] [place] [address] Care Team Providers Care Thread Milling Machine Set Up Operator Name Role Phone Elizabeth Armenta MD Primary Care Provider [phone] Reason for Referral * Consultation (Routine) - Closed Specialty Diagnoses / Procedures Referred By Nancy mendez Referred To Contact Otolaryngology Diagnoses CPA (cerebellopontine angle) tumor Iván Brandon MD [facility] [place] [address] Norman Aguilera MD [facility] [place] [address] Referral ID Status Reason Start Date Expiration Date V isits Requested Visits Authorized [id number] Closed Consult, Test & Treat 10/15/2015 10/14/2016 1 1 Reason for Visit * Reason Comments Mass BRAIN MASS.. * Consultation (Routine) - Closed Specialty Diagnoses / Procedures Referred By Nancy mendez Referred To Contact Neurosurgery Diagnoses LARGE 3CM CEREBELLAR PONTINE ANGLE MASS, W/TRIGEMINAL SENSORY DISORDER Procedures LARGE 3CM CEREBELLAR PONTINE ANGLE MASS,W/TRIGEMINAL SENSORY DISORDER Danay Torres MD [address] [place] [address] [facility] [address] [place] [phone] Referral ID Status Reason Start Date Expiration Date Visits Re quested Visits Authorized [id number] Closed 10/01/2015 09/30/2016 1 1 Encounter Details Date Type Department Care Team (Late st Contact Info) Description 10/13/2015 3:00 PM EDT Office [place] [phone] Iván Brandon MD [facility] [place] [place] [address] Jeri Burnette APRN [facility] [place] [address] CPA (cerebellopontine angle) tumor Social History Tobacco Use Types Packs/Day Years Used Date Smoking Tobacco: Former Smokeless Tobacco: Never Comments:quit Alcohol Use Standard Drinks/Week Comments Yes 0 (1 standard drink = 0.6 oz pur e alcohol) wine nightly Sex and Gender Information Value Date Recorded Sex Assigned at Not on file Gender Identity Not on file Sexual Orientation Not on file documented as of this encounter Last Filed Vital Signs Vital Sign Reading Time Taken Comments Blood Pressure 130/58 10/13/2015 2:56 PM EDT Pulse 100 10/13/2015 2:56 PM EDT Temperature - - Respiratory Rate - - Oxygen Saturation - - Inhaled Oxygen Concentration - - Weight 65.9 kg (145 lb 3.2 oz) 10/13/2015 2:56 P M EDT Height 162.6 cm (5' 4) 10/13/2015 2:56 PM EDT Body Mass Index 24.92 10/13/2015 2:56 PM EDT documented in this encounter Progress Notes * Iván Brandon MD - 10/13/2015 3:00 PM EDT I am just seeing Ms. Felipe in [...] and has been so for 15 years. Her past medical history is pertinent for CLL, but this apparently is stable. She denies any cardiac or pulmonary issues. On examination, she has a slight drooping of her left eyelid, but this seems at baseline. Extraocular motility is intact. She has decreased sensation on the right side subjectively in the V2 and V3 distributions. Tongue, oral and trapezius muscles are all 5/5. Review of her MRI shows a cystic and partially solid lesion in the right CP angle extending into the IAC. This measures a maximal diameter of approximately 3 cm. It causes mild mid brain deformation. Additionally, it looks as though it does abut the undersurface of the trigeminal nerve. I told Ms. Felipe that indeed she [...] otherwise contact her for a surgical date. All questions were answered at the conclusion of this 35-minute meeting, 30 of which were spent in [id number] consultation. 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
--- OUTSIDE RECORDS SUMMARY | 2023-10-16 15:21 | XMS_ITS | Encounter Summary ---
Author Organization [facility] [place] [address] Care Team Providers Care Binder Caser Name Role Phone Elizabeth Armenta MD Primary Care Provider [phone] Reason for Visit * Reason Comments Acoustic Neuroma * Consultation (Routine) - Closed Specialty Diagnoses / Procedures Referred By Nancy mendez Referred To Contact Otolaryngology Diagnoses CPA (cerebellopontine angle) tumor Iván Chaves MD [facility] [place] [place] [address] Norman Aguilera MD [facility] [place] [address] Referral ID Status Reason Start Date Expiration Date V isits Requested Visits Authorized [id number] Closed Consult, Test & Treat 10/15/2015 10/14/2016 1 1 Encounter Details Date Type Department Care Team (Late st Contact Info) Description 12/04/2015 9:30 AM EDT Office [place] [address] Norman Aguilera MD [facility] [place] [address] Right acoustic neuroma; Right SNHL Social History Tobacco Use Types Packs/Day Years [...] - Inhaled Oxygen Concentration - - Weight 64.4 kg (142 lb) 12/04/2015 9:00 AM EDT Height 162.6 cm (5' 4) 12/04/2015 9:00 AM EDT Body Mass Index 24.37 12/04/2015 9:00 AM EDT documented in this encounter Progress Notes * Norman Aguilera MD - 12/04/2015 9:30 AM EDT In the presence of Dr. Aguilera, I am recording the patients history of present illness. Melania Torres Subjective: Patient ID: Latisha Felipe is a 70 y.o. female. This patient is seen in consult today at the request of their primary caregiver and the referring provider, Iván Chaves HPI: Latisha is being seen in the acoustic neuroma clinic today for consult of a vestibular schwannoma. He sudden HL and acute vertigo 17 years ago. Was informed of an abnormal MRI at that time. Presented recently with numbness in the lower lip and radiating to the upper lip. 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 Here to discuss surgery options for CPA tumor on RT side. C/O hearing loss in right ear, numbness of right side face/tongue. No balance problems. Works form home and is physically active. No pain, No dizziness PMH: CLL No family history on file. - son with brain tumor Social History Substance Use Topics ??? Smoking status: Former Smoker Packs/day: 0.50 Years: 15.00 Types: Cigarettes ??? Smokeless tobacco: Never Used Comment: quit ??? Alcohol use Yes Comment: wine nightly Review of Systems All other systems reviewed and are negative. Objective: Physical Exam Constitutional: She is oriented to person, place, and time. She appears well- developed and well-nourished. HENT: Head: Normocephalic and atraumatic. Nose: Nose normal. No mucosal edema, rhinorrhea, nasal deformity or septal deviation. Mouth/Throat: Uvula is midline, oropharynx is clear and moist and mucous membranes are normal. No oral lesions. Normal dentition. No uvula swelling or dental caries. No oropharyngeal exudate, posterior oropharyngeal edema or posterior oropharyngeal erythema. Normal EAC and TM w/ excellent mobility and no middle ear disease. fistula test negative, normal landmarks Eyes: Conjunctivae and EOM are normal. Pupils are equal, round, and reactive to light. Right eye exhibits no discharge. Left eye exhibits no discharge. Neck: Normal range of motion. Neck supple. No tracheal deviation present. No thyromegaly present. Lymphadenopathy: She has no cervical adenopathy. Neurological: She is alert and oriented to person, place, and time. No cranial nerve deficit. Coordination normal. Corneal reflexes are decreased on right (CNV) Sharp sensation intact and symmetric bilaterally in V1 and V2 trigeminal branches, decreased sensation V3 right Masseter strength is equal and symmetrical (CN V) TMJ is non tender Facial Nerve Function is strong and symmetric (CN VII)House Brackmann Grade I/) Hitselberger Test - paraesthesia EAC R>L (CNVII) Palate is midline and voice is strong (CN IX & X) Tongue is midline (CN XII) Shoulder elevation is strong and symmetrical (XI) Ocular Exam: No spontaneous or gaze evoked nystagmus, EOMI with smooth pursuit Eyes Closed Rhomberg - stable Tandem Rhomberg - stable for 10 - 20 sec Tandem Gait - able to walk 5 ft with pivot and return with minimal or no errors Fukuda Test - stable without drift Finger to pt's nose testing (self with eyes closed) is normal Finger to nose test (pt and examiner) - normal no dysmetria or past pointing Heel to Ly - Normal bilaterally Rapid alternating movements - normal, no diadokokinesis Skin: Skin is warm and dry. Psychiatric: She has a normal mood and affect. Her behavior is normal. Judgment and thought contentnormal. Assessment and Plan: I have discussed the diagnosis of acoustic neuroma with the patient and family, including a diagramof the anatomy and have reviewed the MRI scans with them personally. The options for management were reviewed including observation with serial MRI scans, stereotactic radiation therapy, and skull base surgical removal. The risks and complications of all treatment options were discussed including, but not limited to hearing loss, the effect on vestibular function, and facial paralysis.The manager terminal concerns of radiation therapy with regard to hearing, tumor regrowth and malignant regeneration were reviewed as well as the risks inherent to surgical treatment such as infection, bleeding, or intr acranial complications. In her particular case, surgery would be the preferred treatment and she isinterested in proceed with scheduling for Jan or Apr. The patient expressed an understanding of these options and literature was provided for them to review. 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
--- OUTSIDE RECORDS SUMMARY | 2023-10-16 15:21 | XMS_ITS | Encounter Summary ---
Author Organization [facility] [place] [address] Care Team Providers Care Commutator Repairer Name Role Phone Trav Mccann MD Primary Care Provider [phone] Encounter Details Date Type Department Care Team ([facility] st Contact Info) Description 02/21/2012 10:20 AM EST Office Visit [address] [address] Norman Lockhart MD [address] [place] [address] HEMATOLOGY/[place] [address] Social History Tobacco Use Types Packs/Day Years Used Date Smoking Tobacco: Never Assessed Sex and Gender Information Value Date Recorded Sex Assigned at Not on file Gender Identity Not on file Sexual Orientation Not on file documented as of this encounter Plan of Treatment Not on file documented as of this encounter Visit Diagnoses Not on filedocumented in this encounter Care Teams Commutator Repairer Relationship Specialty Start Date End Date Trav Mccann MD [address] [place] [address] PCP - General 02/23/10 02/23/12 documented as of this encounter
--- OUTSIDE RECORDS SUMMARY | 2023-10-16 15:21 | XMS_ITS | Encounter Summary ---
[place] [address] Care Team Providers Care Radio Antenna Installer Name Role Phone Trav Mccann MD Primary Care Provider Encounter Details Date Type Department Care Team (Late st Contact Info) Description 03/12/2010 12:30 PM EST Office Visit [place] [address] Norman Lockhart MD [address] [place] [address] HEMATOLOGY/[place] [address] Social History Tobacco Use Types Packs/Day Years Used Date Smoking Tobacco: Never Assessed Sex and Gender Information Value Date Recorded Sex Assigned at Not on file Gender Identity Not on file Sexual Orientation Not on file documented as of this encounter Plan of Treatment Not on file documented as of this encounter Visit Diagnoses Not on filedocumented in this encounter Care Teams Radio Antenna Installer Relationship Specialty Start Date End Date Trav Mccann MD [address] [place] [address] PCP - General 02/23/10 02/23/12 documented as of this encounter
--- OUTSIDE RECORDS SUMMARY | 2023-10-16 15:21 | XMS_ITS | Encounter Summary ---
[place] [address] Care Team Providers Care Drawer In Hand Name Role Phone Trav Mccann MD Primary Care Provider [phone] Encounter Details Date Type Department Care Team (Late st Contact Info) Description 08/31/2010 11:20 AM EDT Office [place] [address] Norman Lockhart MD [address] [place] [address] HEMATOLOGY/[place] [address] Social History Tobacco Use Types Packs/Day Years Used Date Smoking Tobacco: Never Assessed Sex and Gender Information Value Date Recorded Sex Assigned at Not on file Gender Identity Not on file Sexual Orientation Not on file documented as of this encounter Plan of Treatment Not on file documented as of this encounter Visit Diagnoses Not on filedocumented in this encounter Care Teams Drawer In Hand Relationship Specialty Start Date End Date Trav Mccann MD [address] [place] [address] PCP - General 02/23/10 02/23/12 documented as of this encounter
--- OUTSIDE RECORDS SUMMARY | 2023-10-16 15:21 | XMS_ITS | Encounter Summary ---
Author Organization [facility] [place] [address] Care Team Providers Care Mandarin Speaking Nanny Name Role Phone Elizabeth Armenta MD Primary Care Provider [phone] Encounter Details Date Type Department Care Team ([facility] st Contact Info) Description 08/21/2012 10:40 AM EDT Office Visit [address] [address] Norman Lockhart MD [address] [place] [address] HEMATOLOGY/[place] [address] Social History Tobacco Use Types Packs/Day Years Used Date Smoking Tobacco: Never Assessed Sex and Gender Information Value Date Recorded Sex Assigned at Not on file Gender Identity Not on file Sexual Orientation Not on file documented as of this encounter Plan of Treatment Not on file documented as of this encounter Visit Diagnoses Not on filedocumented in this encounter Care Teams Mandarin Speaking Nanny Relationship Specialty Start Date End Date Elizabeth Armenta MD [facility] [address] [place] [address] PCP - General 02/24/12 07/03/14 documented as of this encounter
--- OUTSIDE RECORDS SUMMARY | 2023-10-16 15:21 | XMS_ITS | Encounter Summary ---
Author Organization [facility] [place] [address] Care Team Providers Care Store Stock Associate Name Role Phone Elizabeth Armenta MD Primary Care Provider [phone] Encounter Details Date Type Department Care Team ([facility] st Contact Info) Description 03/08/2013 9:00 AM EST Office Visit [address] [address] Norman Lockhart MD [address] [place] [address] HEMATOLOGY/[place] [address] Social History Tobacco Use Types Packs/Day Years Used Date Smoking Tobacco: Never Assessed Sex and Gender Information Value Date Recorded Sex Assigned at Not on file Gender Identity Not on file Sexual Orientation Not on file documented as of this encounter Plan of Treatment Not on file documented as of this encounter Visit Diagnoses Not on filedocumented in this encounter Care Teams Store Stock Associate Relationship Specialty Start Date End Date Elizabeth Armenta MD [facility] [address] [place] [address] PCP - General 02/24/12 07/03/14 documented as of this encounter
--- OUTSIDE RECORDS SUMMARY | 2023-10-16 15:21 | XMS_ITS | Encounter Summary ---
[place] [address] Care Team Providers Care Briefcase Sewer Name Role Phone Elizabeth Armenta MD Primary Care Provider [phone] Encounter Details Date Type Department Care Team (Late st Contact Info) Description 09/30/2015 [place] [id number] Danay Torres MD [address] [place] [id number] Social History Tobacco Use Types Packs/Day Years [...] Comments MRI BRAIN WWO CONTRAST (GENERIC) Routine 09/30/2015 4:59 PM EDT documented in this encounter Results * MRI Brain wwo Contrast (Generic) (09/30/2015 4:59 PM EDT) Anatomical Region Laterality Modality Head Magnetic Resonan ce 09/30/2015 4:59 PM EDT Narrative 10/01/2015 1:56 PM EDT External Results [facility] Gomes Final Report EXAMINATION: ??MRI 8020 - MR BRAIN W/O AND W/ CONTR ??[id number] DIAGNOSIS: ?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 Right facial numbness RESULT: ? MRI brain. ??Date 09/30/2015 ??Clinical History: The patient is a 69-year-old female with right facial numbness. ??Sagittal and axial T1 and FLAIR sequences were acquired as well as 3-D SPACE T2 sequence. ??Thin sections through the posterior fossa pre and post contrast. ??This patient has a large mass in the right cerebellar pontine angle. This is partially cystic and solid. Its maximum dimension is in the range of 3 cm. 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 ??This has cystic and solid components. ??The solid components are briskly enhancing. ??This is impressing on the trigeminal nerve although certainly causing mass effect on this structure and it appears to be an isolated abnormality. I do not see any other mass lesions on this exam. Elsewhere in the brain no abnormal intra or extra axial fluid collections. ??I do not see any evidence of hemorrhage or mass. ??No current evidence of any infarct. ??No other areas of abnormal enhancement. IMPRESSION: ? 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 ??This is mixed cystic and solid with the solid component enhancing briskly. ??This mass is impressing on the niels and middle cerebellar peduncle at this level and displacing the trigeminal nerve but it does not arise from this. ??Leading differential is a facial nerve schwannoma versus acoustic neuroma with cystic degeneration; both could account for the facial nerve paralysis, probably just given the size and location of this abnormality. ??I do not see any other abnormalities on this exam. ??The mass is large enough to impress on the brainstem and middle cerebellar peduncle at this level and displace the trigeminal nerve. Neurosurgery consultation is recommended. ??Brain essentially otherwise normal. INTERPRETING PHYSICIAN: ??DL VASQUEZ M.D. Sep 30 2015 ??5:18P ? TRANSCRIBED BY/DATE: ?? ARN on Sep 30 2015 ??5:34P ELECTRONICALLY AUTHORIZED BY: ?? DL VASQUEZ M.D. ? Oct 01 2015 ??1:56P Procedure Note Dl Vasquez MD - 11/13/2016 External Results [facility]ez Eliseo Final Report EXAMINATION: MRI 8020 - MR BRAIN W/O AND W/ CONTR [id number] DIAGNOSIS: NEUROPATHIC TRIGEMINAL SESNORY DISORDER OF TRIGEMINALNERVE, REASON: Right facial numbness RESULT: MRI brain. Date 09/30/2015 Clinical History: The patientis a 69-year-old female with right facial numbness. Sagittal and axial T1and FLAIR sequences were acquired as well as 3-D SPACE T2 sequence. Thin sections through the posterior fossa pre and post contrast. Thispatient has a large mass in the right cerebellar pontine angle. This ispartially cystic and solid. Its maximum dimension is in the range of 3 cm. 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 This hascystic and solid components. The solid components are briskly enhancing. Thisis impressing on the trigeminal nerve although certainly causing mass effecton this structure and it appears to be an isolated abnormality. I do notsee any other mass lesions on this exam. Elsewhere in the brain no abnormal intra or extra axial fluid collections. I do not see any evidence of hemorrhage or mass. No current evidence of any infarct. No other areasof abnormal enhancement. 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 This is mixed cystic andsolid with the solid component enhancing briskly. This mass is impressing onthe niels and middle cerebellar peduncle at this level and displacing the trigeminal nerve but it does not arise from this. Leading differential mango facial nerve schwannoma versus acoustic neuroma with cysticdegeneration; both could account for the facial nerve paralysis, probably just giventhe size and location of this abnormality. I do not see any otherabnormalities on this exam. The mass is large enough to impress on the brainstem and middle cerebellar peduncle at this level and displace the trigeminalnerve. Neurosurgery consultation is recommended. Brain essentially otherwise normal. INTERPRETING PHYSICIAN: DL VASQUEZ M.D. Sep 30 2015 5:18P TRANSCRIBED BY/DATE: SLOANE on Sep 30 2015 5:34P ELECTRONICALLY AUTHORIZED BY: DL VASQUEZ M.D. Oct 01 2015 1:56P Danay Torres MD IMG MRI ORDERABLES documented in this encounter Visit Diagnoses Not on filedocumented in this encounter Care Teams Briefcase Sewer Relationship Specialty Start Date End Date Elizabeth Armenta MD [facility] [address] [place] [address] PCP - General 08/22/14 01/12/21 documented as of this encounter
--- OUTSIDE RECORDS SUMMARY | 2023-10-16 15:21 | XMS_ITS | Encounter Summary ---
Author Organization [facility] [place] [address] Care Team Providers Care Consumer Attorney Name Role Phone Elizabeth Armenta MD Primary Care Provider [phone] Encounter Details Date Type Department Care Team (Latest Contact Info) Description 09/30/2015 - 09/30/2015 11:59 PM EDT Hospital Encounter [place] [address] Iván Chaves MD [facility] [place] [address] Pain Discharge Disposition: Home Social History Tobacco Use Types Packs/Day Years Used Date Smoking Tobacco: Never Assessed Sex and Gender Information Value Date Recorded Sex Assigned at Not on file Gender Identity Not on file Sexual Orientation Not on file documented as of this encounter Plan of Treatment Not on file documented as of this encounter Procedures Procedure Name Priority Date/Time Associated Diagnosis Comments FILM LIBRARY STORAGE ONLY MR HEAD Routine 09/30/2015 12:00 AM EDT Pain documented in this encounter Results * Film Library- Storage only MR Head (09/30/2015 12:00 AM EDT) Narrative [facility] - 10/01/2015 4:49 PM EDT This exam is for storage only and is auto-finalizing. Iván Chaves MD IMG FILM LIBRARY ORD ERABLES [facility] [place] documented in this encounter Visit Diagnoses Diagnosis Pain Generalized pain documented in this encounter Care Teams Consumer Attorney Relationship Specialty Start Date End Date Elizabeth Armenta MD [facility] [address] [place] [address] PCP - General 08/22/14 01/12/21 documented as of this encounter
--- OUTSIDE RECORDS SUMMARY | 2023-10-16 15:21 | XMS_ITS | Encounter Summary ---
Author Organization [facility] [place] [address] Care Team Providers Care Senior Qa Automation Engineer Name Role Phone Elizabeth Armenta MD Primary Care Provider [phone] Encounter Details Date Type Department Care Team (Late st Contact Info) Description 09/10/2015 [facility] Information Services [address] [place] [phone] Provider, His Eliseo MD Social History Tobacco Use Types Packs/Day Years Used Date Smoking Tobacco: Never Assessed Sex and Gender Information Value Date Recorded Sex Assigned at Not on file Gender Identity Not on file Sexual Orientation Not on file documented as of this encounter Last Filed Vital Signs Vital Sign Reading Time Taken Comments Blood Pressure 118/82 09/10/2015 1:45 PM EDT Sourced from Supply Conversion Pulse 83 09/10/2015 1:45 PM EDT Sourced from Eliseo Conversion Temperature - - Respiratory Rate - - Oxygen Saturation - - Inhaled Oxygen Concentration - - Weight 65.4 kg (144 lb 3.2 oz) 09/10/2015 1:45 PM EDT Sourced from Qgiv Conversion Height - - Body Mass Index - - documented in this encounter Plan of Treatment Not on file documented as of this encounter Visit Diagnoses Not on filedocumented in this encounter Care Teams Senior Qa Automation Engineer Relationship Specialty Start Date End Date Elizabeth Armenta MD [address] [place] [address] PCP - General 08/22/14 01/12/21 documented as of this encounter
--- OUTSIDE RECORDS SUMMARY | 2023-10-16 15:21 | XMS_ITS | Encounter Summary ---
Author Organization [facility] [place] [address] Care Team Providers Care Leasing Property Manager Name Role Phone Elizabeth Armenta MD Primary Care Provider [phone] Encounter Details Date Type Department Care Team ([facility] st Contact Info) Description 09/10/2013 8:40 AM EDT Office Visit [address] [address] Norman Lockhart MD [address] [place] [address] HEMATOLOGY/[place] [address] Social History Tobacco Use Types Packs/Day Years Used Date Smoking Tobacco: Never Assessed Sex and Gender Information Value Date Recorded Sex Assigned at Not on file Gender Identity Not on file Sexual Orientation Not on file documented as of this encounter Plan of Treatment Not on file documented as of this encounter Visit Diagnoses Not on filedocumented in this encounter Care Teams Leasing Property Manager Relationship Specialty Start Date End Date Elizabeth Armenta MD [facility] [address] [place] [address] PCP - General 02/24/12 07/03/14 documented as of this encounter
[2023-10-16 19:11] LABS: Bilirubin Negative (Negative); Blood Trace-lysed (Negative); Clarity Cloudy (Clear); Glucose Negative (Negative); Ketones Negative (Negative); Leukocyte Esterase Small (Negative); Nitrite Positive (Negative); Specific Gravity 1.025 (1.005-1.025)
[2023-10-16 19:53] LABS: Bacteria Many HPF (Negative); C & S Indicated? C&S Done As Ordered; Crystals Negative HPF (Negative); Epithelial Cells Rare HPF (Negative); Mucus Negative (Negative); WBC 20-50 HPF (0-5)
== END 2023-10-16 15:15 | disposition home or self-care (01) ==
LOC: NCHCN 15:14
PROVIDERS: PCP Nurse Practitioner Family; Visit Provider Family Medicine
DX: N39.0 Urinary tract infection, site not specified (principal)
CPT/HCPCS: 87077; 81003; 81015; 87086; 87186

== ENCOUNTER 2024-02-06 02:35 | Outpatient (CLI) | payer MEDICARE, SELFPAY ==
[2024-02-06 12:17] LABS: HCT 41.2 % (36.0-46.0); HGB 13.8 g/dL (11.2-15.7); MCHC 33.5 % (32.0-36.0); MCV 87 fL (80-95); MPV 9.4 fL (8.0-11.0); Platelet Count 134 10^3/uL (130-400); RBC 4.76 10^6/uL (3.93-5.22); RDW 13.2 % (11.7-14.6); RDW-SD 41.7 fL
[2024-02-06 12:32] LABS: Hemoglobin A1C 5.9 % (<5.7)
[2024-02-06 12:35] LABS: ALT 26 U/L (14-59); AST 21 U/L (15-37); Albumin 4.3 g/dL (3.4-5.0); Alkaline Phosphatase 75 U/L (46-116); Anion Gap 8.2 mmol/L (3-11); BUN 24 mg/dL (7-18); Bilirubin, Total 0.59 mg/dL (0.2-1.0); CO2 32.8 mmol/L (21.0-32.0); CREATININE 0.9 mg/dL (0.55-1.02); Calcium 9.7 mg/dL (8.5-10.1); Calculated LDL 148 mg/dL (<100); Chloride 104 mmol/L (98-107); Cholesterol 235 mg/dL (<200); Estimated GFR 65.03 (mL/min/1.73m2); Glucose 130 mg/dL (74-106); HDL Cholesterol 66 mg/dL (40-60); Potassium 3.9 mmol/L (3.5-5.1); Sodium 145 mmol/L (136-145); Total Protein 7.2 g/dL (6.4-8.2); Triglyceride 109 mg/dL (<150)
[2024-02-06 12:49] LABS: LDH 195 U/L (81-234)
[2024-02-06 14:00] LABS: Absolute Neutrophil Count 4.85 10^3/uL (1.2-6.7); WBC 34.66 10^3/uL (4.4-10.8)
[2024-02-06 14:01] LABS: Absolute Lymphocyte Count 28.77 10^3/uL (1.2-3.4); Absolute Monocyte Count 0.69 10^3/uL (0.1-0.8); Atypical Lymphocytes % 2 %; Diff Comment Manual Differential; Metamyelocytes % 1
== END 2024-02-06 02:36 | disposition home or self-care (01) ==
LOC: LBO 02:35
PROVIDERS: Internal Medicine Hematology; PCP Nurse Practitioner Family; Visit Provider Nurse Practitioner Family
DX: C91.10 Chronic lymphocytic leukemia of B-cell type not having achieved remission
CPT/HCPCS: 36415; 80053; 80061; 83036; 83615; 85025

== ENCOUNTER 2024-08-13 12:20 | Outpatient (REF) | payer MEDICARE, SELFPAY ==
[2024-08-13 18:56] LABS: HCT 38.9 % (36.0-46.0); MCH 29.1 pg (27.0-33.0); MCHC 33.4 % (32.0-36.0); MCV 87 fL (80-95); Platelet Count 164 10^3/uL (130-400); RBC 4.46 10^6/uL (3.93-5.22); RDW 13.2 % (11.7-14.6); RDW-SD 41.7 fL
[2024-08-13 18:57] LABS: ALT 21 U/L (14-59); AST 28 U/L (15-37); Albumin 4.4 g/dL (3.4-5.0); Alkaline Phosphatase 80 U/L (46-116); Anion Gap 8.2 mmol/L (3-11); BUN 29 mg/dL (7-18); Bilirubin, Total 0.5 mg/dL (0.2-1.0); CO2 27.8 mmol/L (21.0-32.0); CREATININE 0.9 mg/dL (0.55-1.02); Calcium 9.9 mg/dL (8.5-10.1); Chloride 104 mmol/L (98-107); Estimated GFR 65.03 (mL/min/1.73m2); Glucose 121 mg/dL (74-106); LDH 348 U/L (81-234); Potassium 4.2 mmol/L (3.5-5.1); Sodium 140 mmol/L (136-145); Total Protein 7.3 g/dL (6.4-8.2)
[2024-08-13 19:29] LABS: Absolute Eosinophil Count 0.26 10^3/uL (0.0-0.7); Absolute Lymphocyte Count 21.66 10^3/uL (1.2-3.4); Absolute Monocyte Count 1.29 10^3/uL (0.1-0.8); Absolute Neutrophil Count 2.58 10^3/uL (1.2-6.7); Atypical Lymphocytes % 3 %; Diff Comment Manual Differential; RBC Morphology Normal
[2024-08-13 19:53] LABS: WBC 25.79 10^3/uL (4.4-10.8)
== END 2024-08-13 12:21 | disposition home or self-care (01) ==
LOC: NCHCN 12:20
PROVIDERS: PCP Nurse Practitioner Family; Visit Provider Nurse Practitioner Family
DX: C91.90 Lymphoid leukemia, unspecified not having achieved remission (principal)
CPT/HCPCS: 80053; 83615; 85025

== ENCOUNTER 2025-02-03 15:20 | Outpatient (REF) | payer MEDICARE, SELFPAY ==
[2025-02-03 21:04] LABS: HCT 37.1 % (36.0-46.0); HGB 12.4 g/dL (11.2-15.7); MCH 29.1 pg (27.0-33.0); MCHC 33.4 % (32.0-36.0); MCV 87 fL (80-95); MPV 9.7 fL (8.0-11.0); Platelet Count 131 10^3/uL (130-400); RBC 4.26 10^6/uL (3.93-5.22); RDW 13.2 % (11.7-14.6); RDW-SD 40.8 fL
[2025-02-03 21:12] LABS: ALT 29 U/L (14-59); AST 22 U/L (15-37); Albumin 4.3 g/dL (3.4-5.0); Alkaline Phosphatase 67 U/L (46-116); Anion Gap 10.0 mmol/L (3-11); BUN 20 mg/dL (7-18); Bilirubin, Total 0.3 mg/dL (0.2-1.0); CO2 29.0 mmol/L (21.0-32.0); Calcium 9.3 mg/dL (8.5-10.1); Chloride 103 mmol/L (98-107); Glucose 95 mg/dL (74-106); LDH 229 U/L (81-234); Potassium 3.5 mmol/L (3.5-5.1); Sodium 142 mmol/L (136-145); Total Protein 6.8 g/dL (6.4-8.2)
[2025-02-03 21:31] LABS: Hemoglobin A1C 6.1 % (<5.7)
[2025-02-03 21:39] LABS: Immature Grans % 0.0 %
[2025-02-03 21:40] LABS: Abs Immature Grans 0.00 10^3/uL (0.0-0.06); RBC Morphology Normal
[2025-02-03 21:48] LABS: WBC 27.19 10^3/uL (4.4-10.8)
== END 2025-02-03 15:21 | disposition home or self-care (01) ==
LOC: NCHCN 15:20
PROVIDERS: PCP Nurse Practitioner Family; Referring Provider Nurse Practitioner Family; Visit Provider Nurse Practitioner Family
DX: C91.90 Lymphoid leukemia, unspecified not having achieved remission (principal)
CPT/HCPCS: 80053; 83036; 83615; 85025

== ENCOUNTER → 2025-02-06 02:23 | Outpatient (CLI) | payer MEDICARE, SELFPAY ==
--- NOTE | 2025-02-06 | DI.US_ITS ---
APPROVED REPORT EXAM: Comprehensive 2D, Doppler, and color-flow Echocardiogram Patient Location: Out-Patient Hypnotherapist: Galina Soriano RDCS ([facility]) Indications: Cardiac murmur, Dyspnea, Aortic stenosis Other Information Study Quality: Adequate Conclusion Normal left ventricular wall thickness and chamber size. Ejection fraction is 60%. Wall motion is normal Normal right ventricular size and function Both atria are normal in size The aortic valve is calcified. There is moderate aortic stenosis with a peak gradient of 39, mean 23 mmHg. Calculated aortic valve area is 1 cm??. There is no aortic regurgitation Trace to mild mitral and tricuspid regurgitation Estimated right ventricular systolic pressure is 34 mmHg Wall motion Left Ventricle The left ventricle is normal size. The left ventricular systolic function is normal. The left ventricular ejection fraction is within the normal range. There is normal left ventricular wall thickness. There is normal LV segmental wall motion. There is no ventricular septal defect visualized. LVEF is 60%. Right Ventricle The right ventricle is normal size. The right ventricular systolic function is normal. Atria The left atrium size is normal. The right atrium size is normal. The interatrial septum is intact with no evidence for an atrial septal defect. Aortic Valve Aortic valve is calcified. Number of aortic valve leaflets could not be assessed. Moderate aortic stenosis. Peak aortic valve gradient is39.34_mmHg. Highest mean aortic valve gradient is 23.39mmHg. Calculated JV by the continuity equation is 1.0_cm2. No aortic regurgitation is present. Mitral Valve Mild mitral annular calcification. No evidence of mitral valve stenosis. Trace to mild mitral regurgitation. Tricuspid Valve The tricuspid valve is normal in structure. There is no tricuspid valve stenosis. Trace to mild tricuspid regurgitation. The RVSP is 33.9 mmHg. Pulmonic Valve The pulmonary valve is normal in structure. There is no pulmonic valvular stenosis. Trace pulmonic regurgitation. Great Vessels The aortic root is normal in size. Ascending aorta is not well visualized. Aortic arch is normal in caliber. The IVC collapses <50% with inspiration. Pericardium There is no pericardial effusion. 2D Dimensions IVSD d PLAX 0.80 cm F: 0.6-1.0 Ao Root d 2.66 cm F: 2.7 - 3.3 LVPW d PLAX 0.83 cm F: 0.6 - 1.0 LVID d PLAX 4.04 cm F: 3.8 - 5.2 LVDs 2.80 cm F: 2.2 - 3.5 LV EF Teichholz 59.7 % FS 31.33 % LV EDV (Teich) 71.7 mL LV ESV (Teich) 28.9 mL M-Mode TAPSE 2.37 cm (M/F) >1.7 Auto EF LV EDV A4C 81.6 mL LV EDV A2C 93.3 mL LV EDV BP 86.6 mL LV ESV A4C 33.0 mL LV ESV A2C 37.3 mL LV ESV BP 34.9 mL LVEF(%) A4C 59.5 % LVEF(%) A2C 60.0 % LVEF(%) BP 59.6 % LV SV A4C 48.6 ml LV SV A2C 56.0 ml LV SV BP 51.6 ml LV CO A4C 3.0 L/min LV CO A2C 3.2 L/min LV CO BP 3.1 L/min HR A4C 60.89 BPM HR A2C 57.15 BPM LV EDV Index (BP) LA Volume LA Length A4C 4.2 cm LA Length A2C 3.4 cm LA Area A4C s 13.88 cm2 LA Area A2C s 10.55 cm2 LA Vol A4C A-L 39.05 mL LA Vol A2C A-L 27.89 mL LA Vol Biplane A-L 36.7 mL LA Vol/BSA A4C A-L LA Vol/BSA A2C A-L LA Vol/BSA BP A-L 22.4 mL/m2 LA Vol A4C MOD 33.7 mL LA Vol A2C MOD 26.9 mL LA Vol BP MOD 33.3 mL RA Volume RA Area A4C 12.0 cm2 RA ESV A4C (A-L) 30.0mL RA Vol/BSA A4C A-L RA Length A4C 4.1 cm RA ESV A4C (MOD) 28.7mL LV Diastology MV E' medial 0.077 (>0.07 m/s) MV E Vmax 0.84 (0.4-1.3 m/s) MV E/E' MED 10.90 (<14) MV A Vmax 1.00 (0.4-1.3 m/s) MV E' lateral 0.097 (>0.1 m/s) E/A Ratio 0.8 MV E/E' LAT 8.60 (<14) MV E' Average 0.087 m/s MV E/E'(average) 9.61 Aortic Valve AoV Vmax 3.14 m/s LVOT Vmax 0.87 m/s AoV Peak Grad 39.3 mmHg LVOT Peak Grad 3.0 mmHg AoV Area (Vmax) 0.98 cm2 LVOT VTI 0.210 m AoV VTI 0.761 m LVOT Mean Grad 1.6 mmHg AoV Mean Delmer. 2.31 m/s LVOT SV 74.71 mL AoV Mean Grad 23.4 mmHg LVOT Diam s 2.10 cm AoV Area (VTI) 0.98 cm2 AV Regurg Peak Gr. 39.34 mmHg Velocity Ratio 0.28 Mitral Valve MV DT 221 (160-240 msec) MV Vmax TIPS 0.92 m/s MV Mean Grad 1.2 (<2mmHg) MV VTI 0.350 m Pulmonary Valve PV Vmax 1.15 (0.5-1.5 m/s) RVOT Vmax 0.65 m/s PV Peak Grad 5.3 mmHg RVOT Peak Gr. 1.7 mmHg PV Mean Delmer 0.73 m/s RVOT VTI 0.134 m PV Mean Grad 2.4 mmHg RVOT Mean Gr. 1.0 mmHg Tricuspid Valve RA Pressure 8.00 mmHg TR Vmax 2.54 m/s TV S' 0.16 m/s TR Peak Grad 25.8 mmHg RVSP (TR) 33.9 mmHg
== END ==
PROVIDERS: PCP Nurse Practitioner Family; Visit Provider Nurse Practitioner Family
DX: R01.1 Cardiac murmur, unspecified (principal); I08.1 Rheumatic disorders of both mitral and tricuspid valves
CPT/HCPCS: 93306